=== PATIENT | male | born 1955 | race Caucasian/White ===

== ENCOUNTER 2020-05-27 18:38 | Emergency (ER) | payer OTHER, SELFPAY ==
[2020-05-27 18:43] VITALS: BP 161/104; PULSE 81; RESP 16; TEMP 36.3; O2SAT 98; BMI 26.0
[2020-05-27] MEDS: Ketorolac 30 MG/ML Syringe 15 MG IV (20:02)
[2020-05-27] MEDS: 0.9% Normal Saline 1,000 ML 1000 ML IV (20:02)
[2020-05-27 20:16] LABS: Absolute Lymphocyte Count 0.88 X10^3/uL (0.83-4.51); Basophil# 0.02 X10^3/uL; Basophil% 0.4 % (0-1); Eosinophil# 0.15 X10^3/uL; Eosinophils% 2.7 % (0-5); Hemoglobin 14.2 g/dL (13.0-16.5); Lymphocyte # 0.88 X10^3/ul (4.0); Lymphocyte % 15.8 % (19-41); Mean Corpuscular Hgb 29.1 pg (27.0-32.0); Mean Corpuscular Volume 88.1 fL (80-94); Monocyte# 0.46 X10^3/uL; Monocyte% 8.3 % (0-10); NRBC Flagged by Analyzer 0 % (0-5); Neutrophil # 4.04 X10^3/uL (2.7-7.7); Neutrophil % 72.4 % (47-70); Platelet Count 147 K/mm3 (150-450); RBC Distribution Width CV 12.7 % (11.6-14.6); RBC Distribution Width SD 40.9 fl (35.1-43.9); Red Blood Count 4.88 M/mm3 (4.6-6.2); White Blood Count 5.6 K/mm3 (4.4-11.0)
[2020-05-27 20:27] LABS: Anion Gap 4 (5-15); BUN 21 mg/dL (7-18); BUN/Creat Ratio 14.8 RATIO (10-20); Calcium,Total 8.6 mg/dL (8.5-10.1); Chloride 108 mmol/L (98-107); Creatinine, Serum 1.42 mg/dL (0.70-1.30); EST Glomerular Filtration Rate 53 mL/min (>60); Est Glom Filt Rate - Afr Amer 64 mL/min (>60); Estimated Creatinine Clearance 55.41 ml/min; Glucose 105 mg/dL (74-106); Potassium 4.2 mmol/L (3.5-5.1); Sodium Level 142 mmol/L (136-145)
--- NOTE | 2020-05-27 20:36 | CT_ITS ---
STUDY: CT ABDOMEN AND PELVIS WITHOUT CONTRAST REASON FOR EXAM: Male, 65 years old. LT FLANK PAIN. HX OF KIDNEY STONES RADIATION DOSAGE (If Supplied By Facility): CTDIvol = ( 8.58 ) mGy, DLP = ( 510.41 ) mGycm TECHNIQUE: Transaxial images were obtained from the dome of the diaphragm to the symphysis pubis without oral contrast, and without intravenous contrast. Sagittal and coronal images were reconstructed. Individualized dose optimization techniques were used for this CT. COMPARISON: None. FINDINGS: Within the lower lobes there is minimal predominantly dependent atelectasis. There is a granuloma within the left lower lobe. The visualized portions of the heart are within normal limits. The lack of intravenous contrast limits evaluation of solid visceral organs. Normal liver. The gallbladder is contracted. Normal spleen. There is a 1.8 x 1.4 cm low-attenuation focus within the region of the uncinate process of the pancreas (image 66 series 2). Normal bilateral adrenal glands. There are nonobstructing right renal calculi measuring up to 2.7 mm. There is mild left pelviectasis and left hydroureter associated with a 3.4 mm calculus within the posterior urinary bladder left of midline. There are additional nonobstructing left renal calculi measuring up to 2.7 mm. There is a small hiatal hernia. Normal small intestine. Normal colon. The appendix is visualized and appears normal. There is diffuse atherosclerotic calcification of the abdominal aorta, without a demonstrated aneurysm. Normal inferior vena cava. Normal retroperitoneum. Normal abdominal wall. There are diffuse degenerative changes of the visualized lumbar spine. There is a grade 1 anterior spondylolisthesis of L4 on L5. CT/Abdomen/Pelvis without Cont IMPRESSION: Mild left pelviectasis and left hydroureter, likely secondary to recent passage of 3.4 mm calculus within the posterior urinary bladder left of midline. Bilateral nonobstructing renal calculi measuring up to 2.7 mm. Atherosclerosis. Hiatal hernia. Electronically Signed: Bobbi Shah MD at 20:58 EDT Tel , Service support ,
[2020-05-27 21:01] VITALS: RESP 18
[2020-05-27 21:16] LABS: Bacteria 0 SEEN /hpf (None Seen); Mucous, Urine 0 SEEN /hpf (<or=2+); Squamous Epithelial Cells - UA 0 SEEN /hpf (0-5)
--- NOTE | 2020-05-27 21:16 | ED.VISSUMM ---
- ER Visit Summary Date of Service: 05/27/20 Chief Complaint: Flank pain History of Present Illness: The patient is a 65 M who presents with left flank pain, intermittently over the past week. Worse today. History of kidney stones. Physical Examination: Left CVA tenderness. Exam otherwise normal Test Results: CBC unremarkable. BUN 21, creatinine 1.42. Urinalysis pending. CT shows a stone in the left bladder, 3.4 mm, with signs of recent passage. Hiatal hernia and atherosclerosis noted. Emergency Department Course and Treatment: Patient treated with fluids and a low dose of Toradol. While he was being evaluated, the pain resolved. It appears that the stone is in his bladder and will likely pass spontaneously, if it has not already since the scan. We will check the urinalysis for signs of infection. If it is negative, the patient will be discharged with a urine strainer, prescription for Flomax, Zofran as needed, Percocet as needed. He is from out of the area and will follow-up with his home urologist. If for some reason he stays in the area, he was given a referral to Dr. Mcnulty. Treatment Plan: As above Disposition: Discharge Impression: Ureteral colic This note was generated with [employer] dictation software. It may contain incorrect words, spelling, and punctuation that were not noted in review of the chart prior to signing
--- NOTE | 2020-05-27 21:18 | ED.DEP ---
ED Disposition - Plan for ED Patient: Instructions: ED Renal Stone w Colic Prescriptions: Tamsulosin HCl [Flomax] 0.4 mg PO DAILY #7 cap Prescription Printed Oxycodone HCl/Acetaminophen [Percocet 5/325] 1 tab PO Q6H PRN PRN 3 Days #12 tab PRN Reason: Pain Prescription Printed Ondansetron [Zofran Odt] 4 mg PO Q8H PRN PRN #10 tab PRN Reason: Nausea Prescription Printed Referrals: Neeraj Mcnulty MD [STAFF PHYSICIAN] -
[2020-05-27 21:37] LABS: Color, Urine Yellow (Yellow); Glucose, Dipstick Normal (Normal); Ketone-Dipstick Negative (Negative); Leukocyte Esterase-Dipstick Negative /ul (Negative); Nitrite-Dipstick Negative (Negative); Occult Blood-Urine 150 /ul (Negative); Protein-Dipstick Negative (Negative); Specific Gravity, Urine 1.015 (1.002-1.030); Urine Bilirubin Dipstick Negative (Negative); Urine Clarity Clear (Clear); Urine Urobilinogen 1 mg/dl (Normal)
[2020-05-27 21:59] LABS: Red Blood Cells-Urine 10-25 SEEN /hpf (0-5); White Blood Cells 0-5 SEEN /hpf (0-5)
[2020-05-27 22:26] VITALS: PULSE 82; RESP 16; O2SAT 98
== END 2020-05-27 22:27 | disposition home or self-care (01) ==
LOC: ED 20:14
PROVIDERS: Emergency Provider Emergency Medicine
DX: N21.0 Calculus in bladder (principal); K44.9 Diaphragmatic hernia without obstruction or gangrene; Z87.442 Personal history of urinary calculi
CPT/HCPCS: 74176; 80048; 81001; 85025; 96361; 96374; 99283; J7030; A4216

== ENCOUNTER → 2022-07-01 | Outpatient (CLI) | payer MEDICARE, SELFPAY ==
[2022-07-01 20:59] LABS: Absolute Neutrophil Count 4.7 X10^3/uL (2.0-7.7); Basophil# 0.02 X10^3/uL; Basophil% 0.3 % (0-1); Eosinophil# 0.19 X10^3/uL; Hematocrit 48.8 % (40-54); Hemoglobin 15.7 g/dL (13.0-16.5); Lymphocyte % 15.7 % (19-41); Mean Corp Hgb Conc 32.2 g/dL (32-36); Mean Corpuscular Hgb 28.4 pg (27.0-32.0); Mean Corpuscular Volume 88.2 fL (80-94); Mean Platelet Vol. 10.3 fl (6.2-12.0); Monocyte# 0.42 X10^3/uL; Monocyte% 6.6 % (0-10); NRBC Flagged by Analyzer 0 % (0-5); Neutrophil # 4.74 X10^3/uL (2.7-7.7); Neutrophil % 74.2 % (47-70); Platelet Count 202 K/mm3 (150-450); RBC Distribution Width CV 13.2 % (11.6-14.6); RBC Distribution Width SD 43.1 fl (35.1-43.9); Red Blood Count 5.53 M/mm3 (4.6-6.2); White Blood Count 6.4 K/mm3 (4.4-11.0)
== END | disposition home or self-care (01) ==
PROVIDERS: PCP Family Medicine Geriatric Medicine; Visit Provider Family Medicine Geriatric Medicine
DX: R53.83 Other fatigue (principal); E55.9 Vitamin D deficiency, unspecified; Z12.5 Encounter for screening for malignant neoplasm of prostate
CPT/HCPCS: 36415; 80053; 82306; 84153; 84443; 85025; G0103

== ENCOUNTER → 2022-07-02 | Outpatient (CLI) | payer MEDICARE, SELFPAY ==
[2022-07-02 12:31] LABS: Vitamin D,25 Hydroxy 67.6 ng/mL
[2022-07-02 12:46] LABS: ALB/GLOB Ratio 1.1 RATIO (0.9-2.4); AST(SGOT) 23 U/L (15-37); Alanine Aminotransfer ALT/SGPT 23 U/L (16-61); Albumin, Serum 3.4 g/dL (3.2-5.0); Alkaline Phosphatase 98 U/L (45-117); Anion Gap 5 (5-15); BUN 23 mg/dL (7-18); BUN/Creat Ratio 21.5 RATIO (10-20); Calcium,Total 9.1 mg/dL (8.5-10.1); Chloride 108 mmol/L (98-107); Creatinine, Serum 1.07 mg/dL (0.70-1.30); EST Glomerular Filtration Rate 73 mL/min (>60); Est Glom Filt Rate - Afr Amer 88 mL/min (>60); Globulin 3.1 g/dL (2.2-4.2); Glucose 91 mg/dL (74-106); PSA,Total - Annual Screen 1.63 ng/mL (0.00-4.00); Potassium 4.6 mmol/L (3.5-5.1); Protein, Total 6.5 g/dL (6.4-8.2); Sodium Level 142 mmol/L (136-145); Thyroid Stim Hormone (TSH) 0.62 uIU/mL (0.358-3.74)
== END | disposition home or self-care (01) ==
LOC: POLAB3 09:50
PROVIDERS: PCP Family Medicine Geriatric Medicine; Visit Provider Family Medicine Geriatric Medicine
DX: R53.83 Other fatigue (principal); E55.9 Vitamin D deficiency, unspecified; Z12.5 Encounter for screening for malignant neoplasm of prostate
CPT/HCPCS: 80053; 82306; 84153; 84443; G0103

== ENCOUNTER → 2023-02-21 | Outpatient (CLI) | payer MEDICARE, OTHER, SELFPAY ==
--- NOTE | 2023-02-21 08:55 | RAD_ITS ---
STUDY: X-RAY - ESOPHAGUS (BARIUM SWALLOW) WITH FLUOROSCOPY REASON FOR EXAM: Male, 68 years old. GERD *12MM* TECHNIQUE: 18 view(s) of the esophagus were obtained following swallowing of barium. FLUOROSCOPY TIME (if supplied): (52 seconds) minutes/seconds. 38.96 mGy COMPARISON: None. FINDINGS: There is no demonstrated esophageal foreign body. Is a small hiatal hernia with gastroesophageal reflux. Small weblike stenosis at the gastroesophageal junction. The patient ingested a 12 mm tablet of barium. The tablet is trapped at the gastroesophageal junction. There is atherosclerotic tortuosity of the aortic arch and descending thoracic aorta. Normal visualized pulmonary parenchyma. There are diffuse degenerative changes of the visualized thoracic spine. RAD/Esophagus Dual Contrast IMPRESSION: Small sliding hiatal hernia with gastroesophageal reflux. Small weblike stenosis at the gastroesophageal junction with trapping of the 12 mm tablet of barium. Electronically Signed: Guido Chowdary MD at 10:44 EDT ,
== END | disposition home or self-care (01) ==
LOC: RAD 08:48
PROVIDERS: PCP Family Medicine Geriatric Medicine; Referring Provider Family Medicine Geriatric Medicine; Visit Provider Family Medicine Geriatric Medicine
DX: K21.9 Gastro-esophageal reflux disease without esophagitis (principal)
CPT/HCPCS: 74221

== ENCOUNTER → 2023-03-11 | Outpatient (CLI) | payer MEDICARE, OTHER, SELFPAY ==
--- NOTE | 2023-03-11 08:23 | CT_ITS ---
STUDY: CT ABDOMEN AND PELVIS WITH CONTRAST REASON FOR EXAM: Male, 68 years old. PANCREATIC MASS. History of rheumatic fever as a child. RADIATION DOSAGE (If Supplied By Facility): CTDIvol = ( 11.27 ) mGy, DLP = ( 1051.2 ) mGycm TECHNIQUE: Transaxial images were obtained from the dome of the diaphragm to the symphysis pubis without oral contrast. IV 100mL Isovue-370 was administered. Sagittal and coronal images were reconstructed. Individualized dose optimization techniques were used for this CT. COMPARISON: Comparison is made with prior study dated May 27, 2020. FINDINGS: Minimal degree of increased markings at the lung bases suggesting mild basilar atelectasis. Coronary artery calcification. There is decreased attenuation of the liver consistent with steatosis. Normal gallbladder and extrahepatic biliary system. Normal spleen. There is a 1.9 cm x 1.6 cm cyst in the region of the uncinate process of the pancreas. This is essentially unchanged. Normal bilateral adrenal glands. Punctate nonobstructive calculus in the midpole calyx of the right kidney. Normal left kidney. There is a small hiatal hernia. Normal small intestine. There are scattered colonic diverticula consistent with diverticulosis. The appendix is visualized and appears normal. Normal abdominal aorta. Normal inferior vena cava. Normal retroperitoneum. Normal urinary bladder. There are prostatic calcifications. Heterogeneous enlargement of the prostate. A spinal stimulator device is seen with the battery pack overlying the left buttock. There are diffuse degenerative changes of the visualized lumbar spine. Grade 1 anterior listhesis of L4 on L5. CT/Abdomen/Pelvis WITH Contrast IMPRESSION: Stable 1.9 cm by 1.6 m cyst in the uncinate process of the pancreas. Electronically Signed: Guido Chowdary MD at 15:05 EDT ,
[2023-03-11 08:53] LABS: CREATININE FINGERSTICK < 0.9 mg/dL (0.70-1.30); EGFR FINGERSTICK > 60.0000 mL/min (>60)
== END | disposition home or self-care (01) ==
LOC: CT 08:17
PROVIDERS: PCP Family Medicine Geriatric Medicine; Referring Provider Family Medicine Geriatric Medicine; Visit Provider Family Medicine Geriatric Medicine
DX: K86.89 Other specified diseases of pancreas (principal)
CPT/HCPCS: 74177; Q9967

== ENCOUNTER → 2023-04-21 | Outpatient (CLI) | payer MEDICARE, OTHER, SELFPAY ==
[2023-04-21 20:29] LABS: M R Staph aureus DNA By PCR Negative (Negative); Probe Check PASS; Specimen Processing Control PASS; Staph aureus DNA By PCR NEGATIVE (Negative)
== END | disposition home or self-care (01) ==
LOC: POLAB3 17:11
PROVIDERS: PCP Family Medicine Geriatric Medicine; Visit Provider Family Medicine Geriatric Medicine
DX: L03.115 Cellulitis of right lower limb (principal)
CPT/HCPCS: 36415; 87070; 87186; 87205; 87640

== ENCOUNTER 2023-05-06 08:00 | Outpatient (RCR) | payer MEDICARE, OTHER, SELFPAY ==
[2023-04-29 08:11] VITALS: BP 139/93; PULSE 86; RESP 16; TEMP 36.4; BMI 27.1
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
[2023-05-06 08:11] VITALS: BP 141/91; PULSE 84; RESP 18; TEMP 36.6; BMI 27.1
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
== END 2023-05-12 23:59 | disposition home or self-care (01) ==
LOC: WC 08:00
PROVIDERS: PCP Family Medicine Geriatric Medicine; Referring Provider Family Medicine Geriatric Medicine; Visit Provider Surgery
DX: S81.811A Laceration without foreign body, right lower leg, initial encounter (principal); M35.3 Polymyalgia rheumatica; F02.80 Dementia in other diseases classified elsewhere, unspecified severity, without behavioral disturbance, psychotic disturbance, mood disturbance, and anxiety; G30.9 Alzheimer's disease, unspecified; K44.9 Diaphragmatic hernia without obstruction or gangrene; R13.10 Dysphagia, unspecified; G62.9 Polyneuropathy, unspecified; K22.2 Esophageal obstruction; E78.5 Hyperlipidemia, unspecified; L90.5 Scar conditions and fibrosis of skin; H91.90 Unspecified hearing loss, unspecified ear; K86.2 Cyst of pancreas; M48.061 Spinal stenosis, lumbar region without neurogenic claudication; G47.30 Sleep apnea, unspecified; Z96.82 Presence of neurostimulator; K21.9 Gastro-esophageal reflux disease without esophagitis; I10 Essential (primary) hypertension; R05.3 Chronic cough; Z96.653 Presence of artificial knee joint, bilateral; W22.09XA Striking against other stationary object, initial encounter
CPT/HCPCS: 11042; 29581; 99213; G0463

== ENCOUNTER 2023-05-27 09:45 | Outpatient (RCR) | payer MEDICARE, OTHER, SELFPAY ==
[2023-05-13 00:42] VITALS: BP 141/91; PULSE 84; RESP 18; TEMP 36.6; BMI 27.1
--- NOTE | 2023-05-13 14:31 | HP.PCM_ITS ---
History of Present Illness Date of Service: 05/13/23 Chief Complaint: Traumatic wound, right pretibial surface History of Wound: This is a 68-year-old male who sustained a traumatic wound of the right pretibial surface on April 12, 2023. This portion of his leg impacted a hard surface of his jeep, resulting in a traumatic wound. The patient subsequently was evaluated at the urgent care center at the [facility] [place] on April 19, 2023, and was then referred to his primary care physician, Dr. Aburto. Si nce that time, the patient has been prescribed Keflex 500 mg p.o. 3 times daily for 7 days, Levaquin 500 mg daily for 7 days, and is now finishing a prescription for clindamycin 300 mg p.o. 3 times daily for 7 days. The patient has been leaving his open wound open to air most recently, but had previously been using Bactroban topically. Patient has chronically been on prednisone daily long-term. With respect to his traumatic wound, initially there was a skin flap, and the patient carefully repositioned the flap of skin, which subsequently failed to remain viable. The patient is active. He ambulates liberally. He is able to ambulate several blocks without difficulty. He sleeps on a flat surface at night. He denies a history of thrombophlebitis. [facility] Medical History Alzheimer's disease Chronic cough Dysphagia Esophageal stenosis GERD (gastroesophageal reflux disease) Hearing loss Hiatal hernia Hyperlipidemia Hypertension Mild cognitive impairment Pancreatic cyst Peripheral nerve neurostimulator device in situ Polymyalgia rheumatica Sleep apnea treated with continuous positive airway pressure (CPAP) Spinal stenosis at L4-L5 level Traumatic open wound of right lower leg Home Medications amlodipine 5 mg tablet 5 mg PO DAILY 05/27/20 [History Last Taken 05/27/20] dextroamphetamine-amphetamine ER 30 mg 24hr capsule,extend release 30 mg PO DAILY 05/27/20 [History Last Taken 05/27/20] prednisone 1 mg tablet 4 mg PO DAILY 05/27/20 [History Last Taken 04/29/23] Allergy/AdvReac Type Severity Reaction Status Date / Time No Known Allergies Allergy Verified 04/29/23 08:56 Surgical History History of total bilateral knee replacement Social History Smoking Status: Never smoker Vital Signs Vital Signs Vital Signs: 05/13/23 00:42 Temperature 97.9 F Pulse Rate 84 Respiratory Rate 18 Blood Pressure 141/91 H Blood Pressure Mean 107 Blood Pressure Location Left Arm Weight Weight: 200 lb Body Mass Index (BMI) 27.1 Physical Exam Const alert, oriented x3, no apparent distress, average body habitus and well nourished Constitutional Narrative: BMI is 27.1. The patient demonstrates a hearing deficit. General Appearance: cooperative, comfortable, well kempt and well developed Orientation / Consciousness: awake, oriented to person, oriented to place and oriented to time HEENT normocephalic and head/scalp atraumatic HEENT Narrative: Hearing deficit is noted. Head and Scalp: normal to inspection, normocephalic and atraumatic External Ear: external ears normal Eyes PERRL and EOMs intact bilaterally General Eye: normal appearance of both eyes Resp normal respiratory effort, normal air movement, no retractions and no use of accessory muscles Effort and Inspection: able to speak in complete sentences and symmetric chest movement Extremity no calf tenderness General Extremity: Negative for clubbing or cyanosis Skin Wound Narrative: Scattered varicosities are noted in the patient's lower extremities, some of which are large. A traumatic wound is noted on the right pretibial surface. There is no significant periwound erythema. There is a moderate amount of n onviable tissue and bioburden. Dimensions are documented elsewhere. There is no sign of infection or cellulitis. 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 Taj Boothe. Neuro oriented x3, CN's II-XII intact bilaterally, moves all extremities, no focal motor deficits and no sensory deficits noted Sensorium / Orientation: awake, alert, oriented to person, oriented to place and oriented to time Psych Appearance: grossly normal and appropriate Attitude: calm Activity / Motor Behavior: appropriate eye contact Speech: normal speech Mood & Affect: euthymic mood Thought Process: normal thought process Thought Content: normal thought content Attention / Concentration: attention grossly intact Debridement Note Debridement Note Wound debrided: Right pretibial surface Laterality: Right Type of Debridement: Excisional debridement Anesthesia Used: 5% Lidocaine Gel and Cetacaine Depth: Down to and including healthy tissue and in the subcutaneous layer Percentage of wound debrided: 100 Instrument Used: 5mm curette Tissue Removed: Eschar, bioburden, nonviable tissue Severity: Fat Layer Exposed Amount of bleeding with debridement: Mild Bleeding Controlled with: Compression and gauze Patient tolerated procedure: Patient tolerated procedure well Post-Debridement Measurements and Additional Note: Post-Debridement Measurements/Treatment WC - Nurse 2 - General Ulcer CM Notes Start: 05/13/23 09:15 Freq: Status: Active Protocol: Activity Type Activity Date Activity User E-sign Co-sign Detail Recorded Client Recorded Date Recorded By Document 05/13/23 12:30 PL [id number] 05/13/23 12:32 PL 05/13/23 12:30 Wound Center Nurse 2 #1 right diana -Time 09:34 -Correct Patient Yes -Correct Side, Site, Position Yes -Correct Procedure Yes -Procedure Performed Yes -Type of Procedure Debridement -Clinical Debridement Subcutaneous -Tissue Removed Subcutaneous -Post Debridement (cm) - Length 2.0 -Post Debridement (cm) - Width 1.6 -Post Debridement (cm) - Depth 0.1 -Total Square (Post) (cm) 3.20 -Area of Debridement (cm) - Length 2.0 -Area of Debridement (cm) - Width 1.6 -Total Square (Area) (cm) 3.20 -Tunneling No -Undermining/Tunneling No -Circular Undermining No -Wound/Ulcer Outcome Not Healed -Ulcer Cleansing Rinsed/ Irrigated with Saline -Foul Odor after Cleansing No -Bioengineered Tissue No -Bleeding Controlled with Pressure -Treatment Response Procedure Tolerated Well -Debridement - Subq, 1st 20sq cm Yes Pain Scale: 0-10 Numeric Is Patient Pain Free? Yes - Nurse 3 - General Ulcer D/C NN Start: 05/13/23 09:15 Freq: Status: Active Protocol: Activity Type Activity Date Activity User E-sign Co-sign Detail Recorded Client Recorded Date Recorded By Document 05/13/23 09:47 DL [id number] 05/13/23 09:48 DL 05/13/23 09:47 Wound Care Center Nurse 3 #1 right diana -Ulcer Cleansing Rinsed/ Irrigated with Saline -Foul Odor after Cleansing No -Primary Dressing Applied Mepilex Border, Promogran -Mepilex Border 1 -Promogran 1 Treatment Response Procedure Tolerated Well Pain Scale: 0-10 Numeric Is Patient Pain Free? Yes WC - Visit Discharge Discharge Condition Stable Ambulatory Status Ambulatory Transportation Private Auto Assessment/Plan Assessment/Plan (1) Traumatic open wound of right lower leg: CODE(S): S81.801A - Unspecified open wound, right lower leg, initial encounter QUALIFIERS: Encounter type: subsequent encounter Qualified Code(s): S81.801D - Unspecified open wound, right lower leg, subsequent encounter (2) GERD (gastroesophageal reflux disease): CODE(S): K21.9 - Gastro-esophageal reflux disease without esophagitis (3) Pancreatic cyst: CODE(S): K86.2 - Cyst of pancreas (4) Esophageal stenosis: CODE(S): K22.2 - Esophageal obstruction (5) Hiatal hernia: CODE(S): K44.9 - Diaphragmatic hernia without obstruction or gangrene (6) Dysphagia: CODE(S): R13.10 - Dysphagia, unspecified (7) Alzheimer's disease: CODE(S): G30.9 - Alzheimer's disease, unspecified; F02.80 - Dementia in other diseases classified elsewhere, unspecified severity, without behavioral disturbance, psychotic disturbance, mood disturbance, and anxiety (8) Mild cognitive impairment: CODE(S): G31.84 - Mild cognitive impairment of uncertain or unknown etiology (9) Sleep apnea treated with continuous positive airway pressure (CPAP): CODE(S): G47.30 - Sleep apnea, unspecified (10) Hearing loss: CODE(S): H91.90 - Unspecified hearing loss, unspecified ear (11) Spinal stenosis at L4-L5 level: CODE(S): M48.061 - Spinal stenosis, lumbar region without neurogenic claudication (12) Polymyalgia rheumatica: CODE(S): M35.3 - Polymyalgia rheumatica (13) Hyperlipidemia: CODE(S): E78.5 - Hyperlipidemia, unspecified (14) Hypertension: CODE(S): I10 - Essential (primary) hypertension (15) Chronic cough: CODE(S): R05.3 - Chronic cough (16) History of total bilateral knee replacement: CODE(S): Z96.653 - Presence of artificial knee joint, bilateral (17) Peripheral nerve neurostimulator device in situ: CODE(S): Z96.82 - Presence of neurostimulator PLAN: Plan This is a 68-year-old male who presented with a traumatic wound to the right pretibial surface. The injury occurred on April 12, 2023. Patient has since been evaluated in the urgent care facility at the [facility] [place], as well as by his primary care physician. 3 courses of oral antibiotics have been administered, including Keflex, Levaquin, and clindamycin. The patient has used Bactroban topically, but more recently has left the wound open to air. Initially, a skin flap was created at the time of the injury, which was repositioned by the bubba maki. However, the skin flap did not remain viable, and the patient presented with an open wound on the right pretibial surface. The patient has been encouraged to optimize nutritional intake. He is active, and ambulates liberally. It is unlikely that there is significant underlying arterial occlusive disease, based upon the patient's history. We are to continue the use of Promogran topically, which will be applied on a daily basis. The patient has been instructed in the appropriate means of application. Given the patient's varicose veins, he has been given Tubigrip's of 20 to 30 mmHg compression, which are to be worn daily. The patient is to return in 1 week for reassessment. We are to consider the use of a skin substitute, and we will request preauthorization for the use of EpiFix. Total time: 24 minutes
[2023-05-27 09:49] VITALS: BP 143/89; PULSE 88; RESP 16; TEMP 36.2; BMI 27.1
--- NOTE | 2023-05-27 13:25 | PCM.WC.HP ---
History of Present Illness Date of Service: 05/27/23 Chief Complaint: Traumatic wound, right pretibial surface History of Wound: This is a 68-year-old male who sustained a traumatic wound of the right pretibial surface on April 12, 2023. This portion of his leg impacted a hard surface of his jeep, resulting in a traumatic wound. The patient subsequently was evaluated at the urgent care center at the [facility] on April 19, 2023, and was then referred to his primary care physician, Dr. Aburto. Since that time, the patient has been prescribed Keflex 500 mg p.o. 3 times daily for 7 days, Levaquin 500 mg daily for 7 days, and is now finishing a prescription for clindamycin 300 mg p.o. 3 times daily for 7 days. The patient has been leaving his open wound open to air most recently, but had previously been using Bactroban topically. Patient has chronically been on prednisone daily long-term. With respect to his traumatic wound, initially there was a skin flap, and the patient carefully repositioned the flap of skin, which subsequently failed to remain viable. The patient is active. He ambulates liberally. He is able to ambulate several blocks without difficulty. He sleeps on a flat surface at night. He denies a history of thrombophlebitis. [facility] Medical History Alzheimer's disease Chronic cough Dysphagia Esophageal stenosis GERD (gastroesophageal reflux disease) Hearing loss Hiatal hernia Hyperlipidemia Hypertension Mild cognitive impairment Non-pressure chronic ulcer of right calf with fat layer exposed Pancreatic cyst Peripheral nerve neurostimulator device in situ Polymyalgia rheumatica Sleep apnea treated with continuous positive airway pressure (CPAP) Spinal stenosis at L4-L5 level Traumatic open wound of right lower leg Home Medications amlodipine 5 mg tablet 5 mg PO DAILY 05/27/20 [History Last Taken 05/27/20] dextroamphetamine-amphetamine ER 30 mg 24hr capsule,extend release 30 mg PO DAILY 05/27/20 [History Last Taken 05/27/20] prednisone 1 mg tablet 4 mg PO DAILY 05/27/20 [History Last Taken 04/29/23] Allergy/AdvReac Type Severity Reaction Status Date / Time No Known Allergies Allergy Verified 04/29/23 08:56 Surgical History History of total bilateral knee replacement Social History Smoking Status: Never smoker Vital Signs Vital Signs Vital Signs: 05/27/23 09:49 Temperature 97.2 F L Temperature Source Temporal Pulse Rate 88 Respiratory Rate 16 Blood Pressure 143/89 H Blood Pressure Mean 107 Blood Pressure Source Monitor Blood Pressure Position Sitting Blood Pressure Location Left Arm Oxygen Delivery Method Room Air Weight Weight: 200 lb Body Mass Index (BMI) 27.1 Physical Exam Const alert, oriented x3, no apparent distress, average body habitus and well nourished Constitutional Narrative: BMI is 27.1. The patient demonstrates a hearing deficit. General Appearance: cooperative, comfortable, well kempt and well developed Orientation / Consciousness: awake, oriented to person, oriented to place and oriented to time HEENT normocephalic and head/scalp atraumatic HEENT Narrative: Hearing deficit is noted. Head and Scalp: normal to inspection, normocephalic and atraumatic External Ear: external ears normal Eyes PERRL and EOMs intact bilaterally General Eye: normal appearance of both eyes Resp normal respiratory effort, normal air movement, no retractions and no use of accessory muscles Effort and Inspection: able to speak in complete sentences and symmetric chest movement Extremity no calf tenderness General Extremity: Negative for clubbing or cyanosis Skin Wound Narrative: Scattered varicosities are noted in the patient's lower extremities, some of which are large. A traumatic wound is noted on the right pretibial surface. There is a small amount of bioburden. The wound has diminished in size. It is now nearly healed. Dimensions are documented elsewhere. There is no significant periwound erythema. There is no sign of infection or cellulitis. Neuro oriented x3, CN's II-XII intact bilaterally, moves all extremities, no focal motor deficits and no sensory deficits noted Sensorium / Orientation: awake, alert, oriented to person, oriented to place and oriented to time Psych Appearance: grossly normal and appropriate Attitude: calm Activity / Motor Behavior: appropriate eye contact Speech: normal speech Mood & Affect: euthymic mood Thought Process: normal thought process Thought Content: normal thought content Attention / Concentration: attention grossly intact Debridement Note Debridement Note Wound debrided: Right pretibial surface Laterality: Right Type of Debridement: Excisional debridement Anesthesia Used: 5% Lidocaine Gel and Cetacaine Depth: Down to and including healthy tissue and in the subcutaneous layer Percentage of wound debrided: 100 Instrument Used: 5mm curette Tissue Removed: Eschar, bioburden, nonviable tissue Severity: Fat Layer Exposed Amount of bleeding with debridement: Mild Bleeding Controlled with: Compression and gauze Patient tolerated procedure: Patient tolerated procedure well Post-Debridement Measurements and Additional Note: Post-Debridement Measurements/Treatment TANNER - Nurse 1 - General Ulcer Assessment Start: 05/13/23 09:15 Freq: Status: Active Protocol: BEBO Activity Type Activity Date Activity User E-sign Co-sign Detail Recorded Client Recorded Date Recorded By Document 05/27/23 09:49 MW [id number] 05/27/23 10:00 MW 05/27/23 09:49 TANNER - Today's Visit Information Type of service Follow-up Visit (Physician/[employer] OPERATOR ) Arrival Mode Ambulatory Transfer Assistance None Accompanied by self Patient Identification Verified (Name & Yes ) Patient Requires Transmission-Based No Precautions Safety Precautions NA Height and Weight Body Mass Index (BMI) 27.1 BMI Classification Overweight Vital Signs Temperature (97.8 F-99.1 F) 97.2 F L Temperature Source Temporal Pulse Rate (60-100) 88 Pulse Location Monitor Respiratory Rate (12-18) 16 Respiratory rate source Observation Oxygen Delivery Method Room Air Blood Pressure (90/60-120/80) 143/89 H Blood Pressure Mean 107 Source Monitor Position Sitting Blood Pressure Location Left Arm History Since Last Visit- (Skip if this is Patient's initial visit) Have you changed medications since your No last visit? Any new allergies or adverse reactions No Had a fall/change in ADL's that may No increase risk of falls Signs or symptoms of abuse and/or No neglect since last visit Have you been in the hospital since your No last visit? Has dressing in place as prescribed No Has compression in place as prescribed No Has offloadiing in place as prescribed N/A Experienced any changes in pain level or No management Left Footwear Regular Shoe Right Footwear Regular Shoe Pain Scale: 0-10 Numeric Is Patient Pain Free? Yes TANNER Lau Nurse 1 - General Ulcer Measurement Start: 05/13/23 09:15 Freq: Status: Active Protocol: Activity Type Activity Date Activity User E-sign Co-sign Detail Recorded Client Recorded Date Recorded By Document 05/27/23 09:49 MW [id number] 05/27/23 10:00 MW 05/27/23 09:49 Wound Center Nurse 1 #1 right diana -Combined with other wound No -Current Size (cm) - Length 0.1 -Current Size (cm) - Width 0.1 -Current Size (cm) - Depth 0.1 -Total Square Cm 0.01 -Photo Taken No -Epithelialization None Present -Tunneling No -Undermining/Tunneling No -Circular Undermining No -Exudate Amt None Present -Wound Margin Flat & Intact -Granulation Amt None Present (0 %) -Granulation Quality N/A -Slough/Fibrin Yes -Necrosis Amt Large (67-100%) -Necrotic Tissue Type Adherent Slough -Structure Exposed N/A -Texture (Radha-wound Skin Appearance) Assessed, Localized Edema ,Scarring -Moisture (Radha-wound Skin Appearance) Assessed,Dry/ Scaly -Color (Radha-wound Skin Appearance) Assessed -Temperature (Radha-wound Skin No Abnormality Appearance) (Pt Warm) -Ulcer Cleansing Rinsed/ Irrigated with Saline -Foul Odor after Cleansing No -Anesthetic Used 5% Lidocaine Gel Lower Limb Edema Present No WC - Nurse 2 - General Ulcer CM Notes Start: 05/13/23 09:15 Freq: Status: Active Protocol: Activity Type Activity Date Activity User E-sign Co-sign Detail Recorded Client Recorded Date Recorded By Document 05/13/23 12:30 PL [id number] 05/13/23 12:32 PL Document 05/27/23 12:22 [id number] 05/27/23 12:23 PL 05/13/23 05/27/23 12:30 12:22 Wound Center Nurse 2 #1 right diana -Time 09:34 10:09 -Correct Patient Yes Yes -Correct Side, Site, Position Yes Yes -Correct Procedure Yes Yes -Procedure Performed Yes Yes -Type of Procedure Debridement Debridement -Clinical Debridement Subcutaneous Subcutaneous -Tissue Removed Subcutaneous Subcutaneous -Post Debridement (cm) - Length 2.0 0.1 -Post Debridement (cm) - Width 1.6 0.1 -Post Debridement (cm) - Depth 0.1 0.1 -Total Square (Post) (cm) 3.20 0.01 -Area of Debridement (cm) - Length 2.0 0.1 -Area of Debridement (cm) - Width 1.6 0.1 -Total Square (Area) (cm) 3.20 0.01 -Tunneling No No -Undermining/Tunneling No No -Circular Undermining No No -Wound/Ulcer Outcome Not Healed Not Healed -Ulcer Cleansing Rinsed/ Rinsed/ Irrigated with Irrigated with Saline Saline -Foul Odor after Cleansing No No -Bioengineered Tissue No No -Bleeding Controlled with Pressure Pressure -Treatment Response Procedure Procedure Tolerated Well Tolerated Well -Debridement - Subq, 1st 20sq cm Yes Yes Pain Scale: 0-10 Numeric Is Patient Pain Free? Yes Yes - Nurse 3 - General Ulcer D/C NN Start: 05/13/23 09:15 Freq: Status: Active Protocol: Activity Type Activity Date Activity User E-sign Co-sign Detail Recorded Client Recorded Date Recorded By Document 05/13/23 09:47 DL [id number] 05/13/23 09:48 DL 05/13/23 09:47 Wound Care Center Nurse 3 #1 right diana -Ulcer Cleansing Rinsed/ Irrigated with Saline -Foul Odor after Cleansing No -Primary Dressing Applied Mepilex Border, Promogran -Mepilex Border 1 -Promogran 1 Treatment Response Procedure Tolerated Well Pain Scale: 0-10 Numeric Is Patient Pain Free? Yes - Visit Discharge Discharge Condition Stable Ambulatory Status Ambulatory Transportation Private Auto Assessment/Plan Assessment/Plan (1) Traumatic open wound of right lower leg: CODE(S): S81.801A - Unspecified open wound, right lower leg, initial encounter QUALIFIERS: Encounter type: subsequent encounter Qualified Code(s): S81.801D - Unspecified open wound, right lower leg, subsequent encounter (2) Non-pressure chronic ulcer of right calf with fat layer exposed: CODE(S): L97.212 - Non-pressure chronic ulcer of right calf with fat layer exposed (3) GERD (gastroesophageal reflux disease): CODE(S): K21.9 - Gastro-esophageal reflux disease without esophagitis (4) Pancreatic cyst: CODE(S): K86.2 - Cyst of pancreas (5) Esophageal stenosis: CODE(S): K22.2 - Esophageal obstruction (6) Hiatal hernia: CODE(S): K44.9 - Diaphragmatic hernia without obstruction or gangrene (7) Dysphagia: CODE(S): R13.10 - Dysphagia, unspecified (8) Alzheimer's disease: CODE(S): G30.9 - Alzheimer's disease, unspecified; F02.80 - Dementia in other diseases classified elsewhere, unspecified severity, without behavioral disturbance, psychotic disturbance, mood disturbance, and anxiety (9) Mild cognitive impairment: CODE(S): G31.84 - Mild cognitive impairment of uncertain or unknown etiology (10) Sleep apnea treated with continuous positive airway pressure (CPAP): CODE(S): G47.30 - Sleep apnea, unspecified (11) Hearing loss: CODE(S): H91.90 - Unspecified hearing loss, unspecified ear (12) Spinal stenosis at L4-L5 level: CODE(S): M48.061 - Spinal stenosis, lumbar region without neurogenic claudication (13) Polymyalgia rheumatica: CODE(S): M35.3 - Polymyalgia rheumatica (14) Hyperlipidemia: CODE(S): E78.5 - Hyperlipidemia, unspecified (15) Hypertension: CODE(S): I10 - Essential (primary) hypertension (16) Chronic cough: CODE(S): R05.3 - Chronic cough (17) History of total bilateral knee replacement: CODE(S): Z96.653 - Presence of artificial knee joint, bilateral (18) Peripheral nerve neurostimulator device in situ: CODE(S): Z96.82 - Presence of neurostimulator PLAN: Plan This is a 68-year-old male who presented with a traumatic wound to the right pretibial surface. The injury occurred on April 12, 2023. Patient has since been evaluated in the urgent care facility at the [facility], as well as by his primary care physician. 3 courses of oral antibiotics have been administered, including Keflex, Levaquin, and clindamycin. The patient has used Bactroban topically, but more recently has left the wound open to air. Initially, a skin flap was created at the time of the injury, which was repositioned by the patient. However, the skin flap did not remain viable, and the patient presented with an open wound on the right pretibial surface. The patient has been encouraged to optimize nutritional intake. He is active, and ambulates liberally. It is unlikely that there is significant underlying arterial occlusive disease, based upon the patient's history. We are to implement the use of collagen hydrogel which will be applied topically on a daily basis. The patient has been instructed in the appropriate means of application. Given the patient's varicose veins, he has been given Tubigrip's of 20 to 30 mmHg compression, which are to be worn daily. The patient is to return in 2 weeks for reassessment. The patient's wound is now nearly totally healed, and may well be completely healed by the time of his next visit. Total time: 22 minutes
== END 2023-06-12 23:59 | disposition home or self-care (01) ==
LOC: WC 09:45
PROVIDERS: PCP Family Medicine Geriatric Medicine; Referring Provider Family Medicine Geriatric Medicine; Visit Provider Surgery
DX: L97.212 Non-pressure chronic ulcer of right calf with fat layer exposed (principal); M35.3 Polymyalgia rheumatica; F02.80 Dementia in other diseases classified elsewhere, unspecified severity, without behavioral disturbance, psychotic disturbance, mood disturbance, and anxiety; G30.9 Alzheimer's disease, unspecified; K44.9 Diaphragmatic hernia without obstruction or gangrene; I10 Essential (primary) hypertension; R13.10 Dysphagia, unspecified; Z96.82 Presence of neurostimulator; K22.2 Esophageal obstruction; K86.2 Cyst of pancreas; H91.90 Unspecified hearing loss, unspecified ear; M48.061 Spinal stenosis, lumbar region without neurogenic claudication; K21.9 Gastro-esophageal reflux disease without esophagitis; G47.30 Sleep apnea, unspecified; E78.5 Hyperlipidemia, unspecified; R05.3 Chronic cough; Z96.653 Presence of artificial knee joint, bilateral
CPT/HCPCS: 11042

== ENCOUNTER 2023-07-21 10:56 | Outpatient (CLI) | payer MEDICARE, OTHER, SELFPAY ==
[2023-07-21 11:25] LABS: Hematocrit 47.5 % (40-54); Hemoglobin 14.8 g/dL (13.0-16.5); Mean Corp Hgb Conc 31.2 g/dL (32-36); Mean Platelet Vol. 10.3 fl (6.2-12.0); Platelet Count 168 K/mm3 (150-450); RBC Distribution Width CV 13.6 % (11.6-14.6); RBC Distribution Width SD 44.7 fl (35.1-43.9); Red Blood Count 5.28 M/mm3 (4.6-6.2)
[2023-07-21 11:39] LABS: International Normalized Ratio 0.9; Prothrombin Time (Protime)PT. 12.3 SECONDS (11.7-14.9)
[2023-07-21 12:07] LABS: ALB/GLOB Ratio 1.1 RATIO (0.9-2.4); AST(SGOT) 17 U/L (15-37); Alanine Aminotransfer ALT/SGPT 24 U/L (16-61); Albumin, Serum 3.4 g/dL (3.2-5.0); Alkaline Phosphatase 93 U/L (45-117); Anion Gap 3 (5-15); BUN 20 mg/dL (7-18); BUN/Creat Ratio 19.4 RATIO (10-20); Calcium,Total 8.9 mg/dL (8.5-10.1); Chloride 105 mmol/L (98-107); Creatinine, Serum 1.03 mg/dL (0.70-1.30); EST Glomerular Filtration Rate 76 mL/min (>60); Est Glom Filt Rate - Afr Amer 92 mL/min (>60); Glucose 85 mg/dL (74-106); Protein, Total 6.4 g/dL (6.4-8.2); Sodium Level 139 mmol/L (136-145)
== END 2023-07-21 23:59 | disposition home or self-care (01) ==
LOC: LAB 11:01
PROVIDERS: PCP Family Medicine Geriatric Medicine
DX: Z01.818 Encounter for other preprocedural examination (principal)
CPT/HCPCS: 36415; 80053; 85027; 85610; 85730

== ENCOUNTER → 2023-08-20 | Outpatient (CLI) | payer MEDICARE, OTHER, SELFPAY ==
[2023-08-20 13:49] LABS: Absolute Lymphocyte Count 1.04 X10^3/uL (0.83-4.51); Absolute Neutrophil Count 6.8 X10^3/uL (2.0-7.7); Basophil# 0.03 X10^3/uL; Basophil% 0.4 % (0-1); Eosinophil# 0.05 X10^3/uL; Eosinophils% 0.6 % (0-5); Hematocrit 51.5 % (40-54); Hemoglobin 16.5 g/dL (13.0-16.5); Lymphocyte # 1.04 X10^3/ul (0.83-4.51); Lymphocyte % 12.5 % (19-41); Mean Corpuscular Hgb 28.3 pg (27.0-32.0); Mean Corpuscular Volume 88.2 fL (80-94); Mean Platelet Vol. 9.4 fl (6.2-12.0); Monocyte% 4.8 % (0-10); NRBC Flagged by Analyzer 0 % (0-5); Neutrophil # 6.78 X10^3/uL (2.7-7.7); Neutrophil % 81.1 % (47-70); Platelet Count 172 K/mm3 (150-450); RBC Distribution Width CV 13.7 % (11.6-14.6); Red Blood Count 5.84 M/mm3 (4.6-6.2); White Blood Count 8.4 K/mm3 (4.4-11.0)
[2023-08-20 14:28] LABS: Vitamin D,25 Hydroxy 54.7 ng/mL
[2023-08-20 14:37] LABS: AST(SGOT) 15 U/L (15-37); Alanine Aminotransfer ALT/SGPT 22 U/L (16-61); Albumin, Serum 3.1 g/dL (3.2-5.0); Alkaline Phosphatase 92 U/L (45-117); Anion Gap 0 (5-15); BUN 22 mg/dL (7-18); Calcium,Total 8.7 mg/dL (8.5-10.1); Chloride 106 mmol/L (98-107); Creatinine, Serum 1.22 mg/dL (0.70-1.30); EST Glomerular Filtration Rate 62 mL/min (>60); Est Glom Filt Rate - Afr Amer 75 mL/min (>60); Globulin 3.2 g/dL (2.2-4.2); Glucose 106 mg/dL (74-106); PSA,Total - Annual Screen 2.62 ng/mL (0.00-4.00); Potassium 4.6 mmol/L (3.5-5.1); Protein, Total 6.3 g/dL (6.4-8.2); Sodium Level 140 mmol/L (136-145); Thyroid Stim Hormone (TSH) 0.52 uIU/mL (0.358-3.74)
== END | disposition home or self-care (01) ==
LOC: POLAB3 13:23
PROVIDERS: PCP Family Medicine Geriatric Medicine; Visit Provider Family Medicine Geriatric Medicine
DX: I10 Essential (primary) hypertension (principal); E55.9 Vitamin D deficiency, unspecified; Z12.5 Encounter for screening for malignant neoplasm of prostate
CPT/HCPCS: 36415; 80053; 82306; 84153; 84443; 85025; G0103

== ENCOUNTER 2023-11-02 05:25 | Observation (INO) | payer MEDICARE, OTHER, SELFPAY ==
[2023-11-02] VITALS (7 sets, daily range): BP systolic 132–182; BP diastolic 84–120; PULSE 64–87; RESP 14–20; TEMP 36.7–37.4; O2SAT 94–99; BMI 26.9; BMI 27.2
--- NOTE | 2023-11-02 05:43 | CT_ITS ---
EXAM: CT HEAD WITHOUT INTRAVENOUS CONTRAST CLINICAL INDICATION: dizziness dizziness TECHNIQUE: Multiple axial images were obtained of the head without intravenous contrast. This CT exam was performed using one or more of the following dose reduction techniques: automated exposure control, adjustment of the mA and/or kV according to patient size, and/or use of iterative reconstruction technique. RADIATION DOSE: CTDIvol = 44.99 mGy, DLP = 812.98 mGy-cm COMPARISON: No relevant prior studies available. FINDINGS: BRAIN AND EXTRA-AXIAL SPACES: There are microvascular changes in supratentorial white matter. No intra- or extra-axial hemorrhage. No evidence of acute infarct. No intracranial mass or mass effect. There is preservation of the lerma/white matter interface. Posterior fossa structures are unremarkable. Ventricles are appropriate for age. No hydrocephalus. Basal cisterns are patent. BONES/JOINTS: Unremarkable. No discrete lytic or blastic abnormalities. VASCULATURE: There is atherosclerotic calcification of the vertebral and cavernous carotid arteries. SINUSES: Unremarkable as visualized. Clear. MASTOID AIR CELLS: There is a right-sided cochlear implant. There is an associated partial right mastoidectomy. There is opacification of numerous small right mastoid air cells, of indeterminate chronicity. There is no abnormal opacification of the right mastoid antrum. ORBITS: Visualized globes, extraocular muscles, optic nerves and retrobulbar fat appear unremarkable. CT/Brain/Head without Contrast IMPRESSION: 1. Mild chronic involutional changes of the brain. 2. No demonstrated acute intracranial process. 3. Status post right cochlear implant. 4. Opacification of numerous small right mastoid air cells, of indeterminate chronicity. Electronically Signed: Shayne Brady MD at 6:22 EST ,
--- NOTE | 2023-11-02 05:46 | EDS_ITS ---
HPI History of Present Illness Chief Complaint: Dizziness Informant: patient and spouse/S.O. Narrative Narrative: Patient presents with vertigo and nausea and vomiting. He states this started Friday. He has a sense of true spinning. He states he has noted a couple times that his eyes will flick quickly to the right side and then back to the middle when he is very vertiginous. This causes him to get nausea and vomiting. He has no abdominal pain. No chest pain palpitations. He has not been syncopal or near syncopal. He has no numbness tingling weakness. No headache. No trauma. He states it is worse if he bends over and turns. He is not sure if it is turning to the right or left is worse. He has not had this in the past. He does not get the nausea and vomiting until he gets the vertigo. He fell once when he leaned over to take his boots off but he did not hurt himself. He is not on blood thinners. [facility] Medical History (Updated 11/02/23 @ 05:[address] Arik Cade MD) Acute maxillary sinusitis, unspecified Alzheimer's disease Bilateral sensorineural hearing loss Chronic cough Cochlear implant in place Dysphagia Esophageal stenosis GERD (gastroesophageal reflux disease) Hearing loss Hereditary hearing loss Hiatal hernia Hyperlipidemia Hypertension Mild cognitive impairment Non-pressure chronic ulcer of right calf with fat layer exposed Pancreatic cyst Peripheral nerve neurostimulator device in situ Polymyalgia rheumatica Sleep apnea treated with continuous positive airway pressure (CPAP) Spinal stenosis at L4-L5 level Traumatic open wound of right lower leg Home Medications amlodipine 5 mg tablet 5 mg PO DAILY 05/27/20 [History Last Taken 05/27/20] prednisone 1 mg tablet 5 mg PO DAILY 05/27/20 [History Last Taken 04/29/23] cholecalciferol (vitamin D3) 25 mcg (1,000 unit) capsule 25 mcg PO DAILY 10/27/23 [History Last Taken Unknown] cyanocobalamin (vitamin B-12) 1,000 mcg capsule 1,000 mcg PO DAILY 10/27/23 [History Last Taken Unknown] donepezil 5 mg tablet 5 mg PO QHS 10/27/23 [History Last Taken Unknown] famotidine 40 mg tablet 40 mg PO DAILY 10/27/23 [History Last Taken Unknown] memantine 10 mg tablet 10 mg PO BID 10/27/23 [History Last Taken Unknown] meclizine 25 mg tablet 25 mg PO 4X/DAY PRN PRN Dizziness #20 tabs 11/02/23 [Rx Last Taken Unknown] Allergy/AdvReac Type Severity Reaction Status Date / Time No Known Allergies Allergy Verified 10/27/23 15:59 Surgical History (Updated 11/02/23 @ 05:[address] Arik Cade MD) History of cochlear implant History of total bilateral knee replacement Social History Smoking Status: Never smoker ROS ROS ED Constitutional Constitutional ED: Denies chills, fever(s) or subjective Eyes Eyes: Reports other Details: Eye motion with horizontal nystagmus noted per patient. ; Denies blurry vision, change in vision or diplopia ENT ENT ED: Denies ear pain, rhinorrhea or sore throat Cardiovascular Cardiovascular: Denies chest pain Respiratory/Chest Respiratory/Chest: Denies cough or dyspnea Gastrointestinal Gastrointestinal: Reports nausea and vomiting; Denies abdominal pain or diarrhea Genitourinary Genitourinary ED: Denies dysuria Musculoskeletal Musculoskeletal: Denies myalgias Integumentary Denies rash Neurologic Neurologic: Denies headache(s), paresthesias or weakness Hematologic/Lymphatic Hematologic/Lymphatic: Denies easy bleeding or easy bruising Allergic/Immunologic Allergic/Immunologic ED: Denies urticaria EXAM Physical Exam Narrative Exam Narrative: General: Patient awake alert sitting somewhat still in bed. Holding bucket. There are some emesis without blood in there. HEENT: No trauma. Mucous membranes are moist. No sinus tenderness. Cochlear implant on the right Eyes: No proptosis. Patient can look left or right upper down right now. But he will only 1 move his head. This did not induce symptoms or nystagmus at this time. But he has a history of having most problems with complex motions such as leaning forward and turning to the side. Neck is supple. No JVD. Lungs are clear bilaterally and saturations are normal at 99% on room air showing no hypoxia. Heart is regular. No murmur heard. Abdomen is soft completely nontender. Extremities show no edema or cords. Neuro: Patient able to move slightly as above without symptoms. There is no peripheral weakness numbness or discoordination at all. Const Vital Signs: 11/02/23 05:27 11/02/23 05:30 11/02/23 05:34 Temperature 98.1 F Temperature Source Temporal Pulse Rate 87 Respiratory Rate 19 H Respiratory Effort Normal Respiratory Pattern Normal Blood Pressure 182/120 H 149/99 H Blood Pressure Mean 140 115 Pulse Ox 99 Oxygen Delivery Method Room Air 11/02/23 06:39 11/02/23 09:00 Temperature Temperature Source Pulse Rate 67 Respiratory Rate 14 20 H Respiratory Effort Respiratory Pattern Blood Pressure 133/84 H Blood Pressure Mean 100 Pulse Ox 94 Oxygen Delivery Method Room Air MDM MDM MDM Narrative Medical decision making narrative: My independent interpretation of the patient's CT of the head without contrast shows no acute process. Final reading is similar but does showed some opacification of mastoid air cells but he has no discomfort there. This could be related to his cochlear implant. Patient's CBC is normal. Patient's electrolytes are normal other than mild elevation of glucose at 128. Patient's [id number] glucose was 114. Patient is feeling better with meds. He has a little bit of dizziness but he is moving his head left right up and down without problems now. Since he still has some symptoms I will give him a dose of meclizine. We will get him up and walk. I think he should be good to go home we will get him started on medications. Patient agreed he still had some vertigo. Try to walk. But when he stood up and tried to move it all he got significantly vertiginous.. He was not at all safe to walk. He has been given IV fluids, time, Zofran, Valium, meclizine. These have not helped his symptoms. He is not safe to go home. I discussed the case with the hospitalist. Lab Data Attestation: I reviewed the patient's lab results. Labs: Laboratory Results - last 24 hr 11/02/23 11/02/23 05:30 05:32 WBC 7.0 RBC 5.25 Hgb 15.0 Hct 45.4 MCV 86.5 MCH 28.6 MCHC 33.0 RDW Std Deviation 42.6 RDW Coeff of Collin 13.4 Plt Count 189 MPV 9.7 Immature Gran % (Auto) 0.400 Neut % (Auto) 60.5 Lymph % (Auto) 27.7 [place] % (Auto) 8.4 Eos % (Auto) 2.6 Baso % (Auto) 0.4 Absolute Neuts (auto) 4.3 Absolute Lymphs (auto) 1.95 Nucleated RBC % 0 Sodium 140 Potassium 3.5 Chloride 107 Carbon Dioxide 25.0 Anion Gap 8 BUN 16 Creatinine 0.94 Estim Creat Clear Calc 80.26 Est GFR (MDRD) Af Amer 103 Est GFR (MDRD) Non-Af 85 BUN/Creatinine Ratio 17.1 Glucose 128 H Calcium 8.9 POC Glucose 114 H Radiography Diagnostic Testing: Clinical Impression(s) from Imaging Studies Brain CT 11/02/23 05:43 IMPRESSION: 1. Mild chronic involutional changes of the brain. 2. No demonstrated acute intracranial process. 3. Status post right cochlear implant. 4. Opacification of numerous small right mastoid air cells, of indeterminate chronicity. Electronically Signed: Shayne Brady MD at 6:22 EST Reading Location ID and State: [facility] / [place] , Service support , Discharge Plan Triage Chief Complaint: Dizziness ED Provider: Arik Cade Dx/Rx/DC Orders Clinical Impression: Vertigo, Nausea & vomiting Instructions: ED Vertigo, Unspecified Prescriptions: New meclizine 25 mg tablet 25 mg PO 4X/DAY PRN PRN (Reason: Dizziness) Qty: 20 0RF No Action cholecalciferol (vitamin D3) 25 mcg (1,000 unit) capsule 25 mcg PO DAILY donepezil 5 mg tablet 5 mg PO QHS famotidine 40 mg tablet 40 mg PO DAILY memantine 10 mg tablet 10 mg PO BID cyanocobalamin (vitamin B-12) 1,000 mcg capsule 1,000 mcg PO DAILY amlodipine 5 MG tablet 5 mg PO DAILY prednisone 1 MG tablet 5 mg PO DAILY Primary Care Provider: Mike Aburto Chi Referrals: Mike Aburto Chi, MD [Primary Care Provider] - 3-5 Days Disposition Disposition: Acute Care Hospital [facility]
[2023-11-02 05:50] LABS: Bedside Glucose 114 mg/dL (74-106)
[2023-11-02] MEDS: 0.9% Normal Saline (1000mL) 1,000 ML 1000 ML IV (05:51)
[2023-11-02] MEDS: Ondansetron 4 MG/2 ML Vial IV (05:52)
[2023-11-02] MEDS: diazePAM 5 MG Tablet PO (05:52)
[2023-11-02 05:57] LABS: Absolute Lymphocyte Count 1.95 X10^3/uL (0.83-4.51); Absolute Neutrophil Count 4.3 X10^3/uL (2.0-7.7); Basophil# 0.03 X10^3/uL; Basophil% 0.4 % (0-1); Eosinophil# 0.18 X10^3/uL; Eosinophils% 2.6 % (0-5); Hematocrit 45.4 % (40-54); Lymphocyte # 1.95 X10^3/ul (0.83-4.51); Lymphocyte % 27.7 % (19-41); Mean Corpuscular Hgb 28.6 pg (27.0-32.0); Mean Corpuscular Volume 86.5 fL (80-94); Mean Platelet Vol. 9.7 fl (6.2-12.0); Monocyte# 0.59 X10^3/uL; Monocyte% 8.4 % (0-10); NRBC Flagged by Analyzer 0 % (0-5); Neutrophil # 4.26 X10^3/uL (2.7-7.7); Neutrophil % 60.5 % (47-70); Platelet Count 189 K/mm3 (150-450); RBC Distribution Width CV 13.4 % (11.6-14.6); RBC Distribution Width SD 42.6 fl (35.1-43.9); Red Blood Count 5.25 M/mm3 (4.6-6.2)
[2023-11-02 06:16] LABS: Anion Gap 8 (5-15); BUN 16 mg/dL (7-18); BUN/Creat Ratio 17.1 RATIO (10-20); Calcium,Total 8.9 mg/dL (8.5-10.1); Chloride 107 mmol/L (98-107); Creatinine, Serum 0.94 mg/dL (0.70-1.30); EST Glomerular Filtration Rate 85 mL/min (>60); Est Glom Filt Rate - Afr Amer 103 mL/min (>60); Estimated Creatinine Clearance 80.26 ml/min; Glucose 128 mg/dL (74-106); Potassium 3.5 mmol/L (3.5-5.1); Sodium Level 140 mmol/L (136-145)
[2023-11-02] MEDS: Meclizine HCl 25 MG Tablet PO (07:18)
--- NOTE | 2023-11-02 07:25 | ED.RN ---
pt states he is unable to ambulate at this time. this rn tells pt that we will wait 30 minutes to give the meclizine time to work and this rn will come back to attempt ambulation again. pt agrees. will follow up with pt 30 minutes after nuclear medicine technician.
--- NOTE | 2023-11-02 07:50 | ED.RN ---
this rn attempts to ambulate pt. pt moves head side to side and pt states you know, im still pretty dizzy. i wont be able to walk. dr. barnes updated.
--- NOTE | 2023-11-02 09:28 | PCM.HP.STD ---
HPI - General General Date of Admission: 11/02/23 Date of Service: 11/02/23 Chief Complaint: Vertigo HPI Narrative TAMRA GUZMAN, is a 68-year-old male history of cochlear implant, GERD, PMR, mild cognitive impairment, sleep apnea, hypertension, presented to [facility] 11/02/2023 with vertigo, nausea, vomiting with a true spinning sensation that causes nausea and vomiting. Worsened when bending over or turning head. Has not had this in the past. In the ED symptoms concerning for BPPV, given meclizine and Valium with some improvement however patient still unsteady and unable to ambulate and high fall risk so hospitalist contacted for admission. Patient seen at bedside with , symptoms started on Friday and are intermittent, he had observed his eyes jumping to the right during one of the symptoms and reports that symptoms will come on suddenly if he bends over or suddenly turns his head, has sudden movements but just sitting there at this time he is not having symptoms. Has had several falls associated with the symptoms. Denies any cough, nasal congestion, sore throat, fevers or any other infectious symptoms. Has no numbness, weakness, tingling or other neurologic symptoms. Denies any recent medication changes, had a cochlear implant put in but that was back in July and had not had the symptoms until Friday. [facility] Medical History (Updated 11/02/23 @ 05:[address] Arik Cade MD) Acute maxillary sinusitis, unspecified Alzheimer's disease Bilateral sensorineural hearing loss Chronic cough Cochlear implant in place Dysphagia Esophageal stenosis GERD (gastroesophageal reflux disease) Hearing loss Hereditary hearing loss Hiatal hernia Hyperlipidemia Hypertension Mild cognitive impairment Non-pressure chronic ulcer of right calf with fat layer exposed Pancreatic cyst Peripheral nerve neurostimulator device in situ Polymyalgia rheumatica Sleep apnea treated with continuous positive airway pressure (CPAP) Spinal stenosis at L4-L5 level Traumatic open wound of right lower leg Home Medications amlodipine 5 mg tablet 5 mg PO DAILY 05/27/20 [History Last Taken 05/27/20] prednisone 1 mg tablet 5 mg PO DAILY 05/27/20 [History Last Taken 04/29/23] cholecalciferol (vitamin D3) 25 mcg (1,000 unit) capsule 25 mcg PO DAILY 10/27/23 [History Last Taken Unknown] cyanocobalamin (vitamin B-12) 1,000 mcg capsule 1,000 mcg PO DAILY 10/27/23 [History Last Taken Unknown] donepezil 5 mg tablet 5 mg PO QHS 10/27/23 [History Last Taken Unknown] famotidine 40 mg tablet 40 mg PO DAILY 10/27/23 [History Last Taken Unknown] memantine 10 mg tablet 10 mg PO BID 10/27/23 [History Last Taken Unknown] meclizine 25 mg tablet 25 mg PO 4X/DAY PRN PRN Dizziness #20 tabs 11/02/23 [Rx Last Taken Unknown] Allergy/AdvReac Type Severity Reaction Status Date / Time No Known Allergies Allergy Verified 10/27/23 15:59 Surgical History (Updated 11/02/23 @ 05:[address] Arik Cdae MD) History of cochlear implant History of total bilateral knee replacement Social History Smoking Status: Never smoker ROS ROS Narrative General: Denies fever/chills HENT: Denies headache, denies stuffy nose, denies sore throat EYES: Reports vision only changes when he is having the episodes and his eyes are jerking Resp: Denies cough, denies shortness of breath Cardiac: Denies chest pain GI: Denies abdominal pain, denies changes in bowel, denies nausea/vomiting : Denies changes in urination Extremity: Denies swelling MSK: Denies weakness Neuro: Denies any numbness/tingling, spinning sensation when he bends over or moves in certain positions Heme: Denies any bleeding or bruising Skin: Denies rashes Psychiatric: No complaints voiced Vital Signs Vital Signs Vital Signs: 11/02/23 05:27 11/02/23 05:30 11/02/23 05:34 Temperature 98.1 F Temperature Source Temporal Pulse Rate 87 Respiratory Rate 19 H Respiratory Effort Normal Respiratory Pattern Normal Blood Pressure 182/120 H 149/99 H Blood Pressure Mean 140 115 Pulse Ox 99 Oxygen Delivery Method Room Air 11/02/23 06:39 11/02/23 09:00 Temperature Temperature Source Pulse Rate 67 Respiratory Rate 14 20 H Respiratory Effort Respiratory Pattern Blood Pressure 133/84 H Blood Pressure Mean 100 Pulse Ox 94 Oxygen Delivery Method Room Air Weight Weight: 89.9 kg Body Mass Index (BMI) 26.9 Physical Exam Narrative General: Alert, oriented, no apparent distress HEENT: Atraumatic, normocephalic Eyes: Anicteric, normal conjunctiva, extraocular movements intact, pupils equal Neck: Supple Respiratory: Clear to auscultation bilaterally, normal respiratory effort Cardiovascular: Regular rate and rhythm GI: Soft, nontender, nondistended Extremities: No edema Musculoskeletal: Strength 5 out of 5 in right upper extremity, 5 out of 5 left upper extremity, 5 out of 5 right lower extremity, 5 out of 5 left lower extremity Neuro: No overt focal neurological deficits, cranial nerves II through XII intact, [id number] without significant difficulty bilaterally Skin: No rashes appreciated Psych: Cooperative Results Lab / Micro Data 11/02/23 05:30 11/02/23 05:30 Labs: Laboratory Results - last 24 hr 11/02/23 05:30: WBC 7.0, RBC 5.25, Hgb 15.0, Hct 45.4, MCV 86.5, MCH 28.6, MCHC 33.0, RDW Std Deviation 42.6, RDW Coeff of Collin 13.4, Plt Count 189, MPV 9.7, Immature Gran % (Auto) 0.400, Neut % (Auto) 60.5, Lymph % (Auto) 27.7, Gates % (Auto) 8.4, Eos % (Auto) 2.6, Baso % (Auto) 0.4, Absolute Neuts (auto) 4.3, Absolute Lymphs (auto) 1.95, Nucleated RBC % 0, Sodium 140, Potassium 3.5, Chloride 107, Carbon Dioxide 25.0, Anion Gap 8, BUN 16, Creatinine 0.94, Estim Creat Clear Calc 80.26, Est GFR (MDRD) Af Amer 103, Est GFR (MDRD) Non-Af 85, BUN/Creatinine Ratio 17.1, Glucose 128 H, Calcium 8.9 11/02/23 05:32: POC Glucose 114 H Imagaing Radiology Impression Brain CT 11/02/23 05:43 IMPRESSION: 1. Mild chronic involutional changes of the brain. 2. No demonstrated acute intracranial process. 3. Status post right cochlear implant. 4. Opacification of numerous small right mastoid air cells, of indeterminate chronicity. Electronically Signed: Shayne Brady MD at 6:22 EST , Assessment & Plan Assessment/Plan (1) Vertigo: (2) Sleep apnea treated with continuous positive airway pressure (CPAP): (3) Polymyalgia rheumatica: (4) Mild cognitive impairment: (5) GERD (gastroesophageal reflux disease): PLAN: Plan #Verigo -Suspect BPPV -Neuroexam normal and symptoms classic for this, PT/OT, will likely need vestibular rehab if not proving -Zofran and meclizine as needed, will also gently hydrate -No infectious symptoms or concern for vestibular neuritis at this time -CT head with mild chronic changes and opacification of small right mastoid air cells of indeterminate chronicity -Given normal neuroexam and his symptoms do not feel he needs urgent MRI at this time, if symptoms change or do not improve could always consider this and/or neurology consult however suspect patient will continue to improve and will need short stay in the hospital -Fall precautions #GERD -Continue famotidine # Hearing loss with cochlear implant -Noted # DEMOND -CPAP nightly # MCI -Will continue donepezil and memantine at this time # PMR -Continue low-dose prednisone #DVT ppx: SCDs Mitra Martinez MD Time spent in the patient's overall evaluation,decision-making process, review of diagnostic data, adjustment of management, discussion with other providers, nursing nursing and ancillary staff involved in patient's care documentation, 57 minutes Charges/Coding Visit Charges Inpatient E&M: 34803 Init Hosp L2
[2023-11-02] MEDS: amLODIPine 5 MG Tablet PO (12:03)
[2023-11-02] MEDS: Memantine Hydrochloride 10 MG Tablet PO ×2 (12:04→22:36)
[2023-11-02] MEDS: predniSONE 5 MG Tablet PO (12:04)
[2023-11-02] MEDS: 0.9% Normal Saline (1000mL) 1,000 ML 50 ML IV (12:08)
[2023-11-02] MEDS: Meclizine 12.5 MG Tablet PO ×2 (12:13→18:05)
--- NOTE | 2023-11-02 15:00 | CPS ---
Patient has a CPAP at home. Sleep Lab CPAP set-up at bedside with F20 Medium mask.
[2023-11-02] MEDS: Donepezil HCl 5 MG Tablet PO (22:36)
[2023-11-03] MEDS: Meclizine 12.5 MG Tablet PO (02:52)
[2023-11-03 02:53] VITALS: BP 154/100; PULSE 63; RESP 16; TEMP 36.4; O2SAT 100
--- NOTE | 2023-11-03 05:04 | CPS ---
PATIENT ON SLEEP LAB PAP MACHINE FOR THE NIGHT, AT HOME SETTINGS.
[2023-11-03 05:11] LABS: Absolute Lymphocyte Count 1.07 X10^3/uL (0.83-4.51); Absolute Neutrophil Count 4.4 X10^3/uL (2.0-7.7); Basophil# 0.01 X10^3/uL; Basophil% 0.2 % (0-1); Eosinophils% 1.7 % (0-5); Hematocrit 44.9 % (40-54); Hemoglobin 14.3 g/dL (13.0-16.5); Lymphocyte # 1.07 X10^3/ul (0.83-4.51); Lymphocyte % 18.1 % (19-41); Mean Corp Hgb Conc 31.8 g/dL (32-36); Mean Corpuscular Hgb 27.7 pg (27.0-32.0); Mean Corpuscular Volume 86.8 fL (80-94); Mean Platelet Vol. 9.5 fl (6.2-12.0); Monocyte# 0.36 X10^3/uL; Monocyte% 6.1 % (0-10); NRBC Flagged by Analyzer 0 % (0-5); Neutrophil # 4.37 X10^3/uL (2.7-7.7); Neutrophil % 73.7 % (47-70); Platelet Count 159 K/mm3 (150-450); RBC Distribution Width CV 13.4 % (11.6-14.6); RBC Distribution Width SD 42.6 fl (35.1-43.9); Red Blood Count 5.17 M/mm3 (4.6-6.2); White Blood Count 5.9 K/mm3 (4.4-11.0)
[2023-11-03 06:12] LABS: ALB/GLOB Ratio 1.1 RATIO (0.9-2.4); AST(SGOT) 18 U/L (15-37); Alanine Aminotransfer ALT/SGPT 19 U/L (16-61); Albumin, Serum 3.1 g/dL (3.2-5.0); Alkaline Phosphatase 102 U/L (45-117); Anion Gap 3 (5-15); BUN 12 mg/dL (7-18); BUN/Creat Ratio 14.5 RATIO (10-20); Calcium,Total 8.9 mg/dL (8.5-10.1); Chloride 109 mmol/L (98-107); Creatinine, Serum 0.83 mg/dL (0.70-1.30); EST Glomerular Filtration Rate 98 mL/min (>60); Est Glom Filt Rate - Afr Amer 118 mL/min (>60); Globulin 2.9 g/dL (2.2-4.2); Glucose 94 mg/dL (74-106); Magnesium 2.1 mg/dL (1.6-2.6); Potassium 4.2 mmol/L (3.5-5.1); Sodium Level 140 mmol/L (136-145); Thyroid Stim Hormone (TSH) 0.39 uIU/mL (0.358-3.74)
[2023-11-03] MEDS: Memantine Hydrochloride 10 MG Tablet PO (07:57)
[2023-11-03] MEDS: Famotidine 20 MG Tablet 40 MG PO (07:57)
[2023-11-03] MEDS: 0.9% Normal Saline (1000mL) 1,000 ML 50 ML IV (07:57)
[2023-11-03] MEDS: predniSONE 5 MG Tablet PO (07:58)
[2023-11-03] MEDS: amLODIPine 5 MG Tablet PO (07:58)
[2023-11-03 08:00] VITALS: BP 159/98; PULSE 70; RESP 18; TEMP 36.9; O2SAT 98
--- NOTE | 2023-11-03 08:06 | PN.HOSP_ITS ---
Reason for Visit Reason for Visit: Diagnoses Mild cognitive impairment of uncertain or unknown etiology (11/02/23) Sleep apnea, unspecified (11/02/23) Gastro-esophageal reflux disease without esophagitis (11/02/23) Polymyalgia rheumatica (11/02/23) Dizziness and giddiness (11/02/23) Subjective Subjective Patient is a 68-year-old gentleman with history of cochlear implant presented with vertig Objective Data Objective Data Vital Signs: Vital Signs Temp Pulse Resp BP Pulse Ox O2 Del Method 98.5 F 70 18 159/98 H 98 Room Air 11/03/23 08:00 11/03/23 08:00 11/03/23 08:00 11/03/23 08:00 11/03/23 08:00 11/03/23 08:00 Oxygen Delivery Method Room Air Weight: 91.217 kg Body Mass Index (BMI) 27.2 Intake & Output: Intake and Output for Last 24 Hours 11/01/23 11/02/23 11/03/23 23:59 23:59 23:59 Intake Total 1000 / 1300 1590.83 / 1590.83 Balance 1000 / 1300 1590.83 / 1590.83 Lab / Micro Data 11/03/23 04:50 11/03/23 04:50 Labs: Laboratory Results - last 24 hr 11/03/23 04:50: WBC 5.9, RBC 5.17, Hgb 14.3, Hct 44.9, MCV 86.8, MCH 27.7, MCHC 31.8 L, RDW Std Deviation 42.6, RDW Coeff of Collin 13.4, Plt Count 159, MPV 9.5, Immature Gran % (Auto) 0.200, Neut % (Auto) 73.7 H, Lymph % (Auto) 18.1 L, [place] % (Auto) 6.1, Eos % (Auto) 1.7, Baso % (Auto) 0.2, Absolute Neuts (auto) 4.4, Absolute Lymphs (auto) 1.07, Nucleated RBC % 0, Sodium 140, Potassium 4.2, Chloride 109 H, Carbon Dioxide 28.0, Anion Gap 3 L, BUN 12, Creatinine 0.83, Estim Creat Clear Calc 90.90, Est GFR (MDRD) Af Amer 118, Est GFR (MDRD) Non-Af 98, BUN/Creatinine Ratio 14.5, Glucose 94, Calcium 8.9, Magnesium 2.1, Total Bilirubin 0.80, AST 18, ALT 19, Alkaline Phosphatase 102, Total Protein 6.0 L, Albumin 3.1 L, Globulin 2.9, Albumin/Globulin Ratio 1.1, TSH 0.39 Physical Exam Narrative GENERAL: cooperative HEENT: Atraumatic; normocephalic EYES; Anicteric, Normal Conjunctiva NECK; supple, normal thyroid, RESPIRATORY: Diminished to auscultation CARDIOVASCULAR: Regular S1 S2, GI: soft, normoactive bowel sounds, : No Renal angle tenderness; EXTREMITIES: No edema, no clubbing, MUSCULOSKELETAL: no muscle wasting NEURO: Awake; no lateralizing signs. SKIN: No Rash PSYCH; Flat affect Assessment & Plan Assessment/Plan (1) Vertigo: (2) Sleep apnea treated with continuous positive airway pressure (CPAP): (3) Polymyalgia rheumatica: (4) Mild cognitive impairment: (5) GERD (gastroesophageal reflux disease): PLAN: Plan Patient is a 68-year-old gentleman with history of cochlear implant presented with vertigo 1. Acute vertigo ? Secondary to BPPV. Requested for PT OT eval 2. GERD -Continue famotidine 3. Hearing loss with cochlear implant -Noted 4. DEMOND -CPAP nightly 5. Mild cognitive impairment -Will continue donepezil and memantine at this time 6. Polymyalgia rheumatica -Continue low-dose prednisone 7. DVT prophylaxis ? SCDs Time spent in the patient's overall evaluation,decision-making process, review of diagnostic data, adjustment of management, discussion with other providers, nursing nursing and ancillary staff involved in patient's care documentation,35 minutes Charges/Coding Visit Charges Inpatient E&M: 35286 Subs Hosp L2
--- NOTE | 2023-11-03 11:05 | CASEMGMT ---
Met with?patient and his to complete DORADO form. DORADO form explained to?both who voiced understanding. Patient stated his hands were too shaky and asked that his sign form. Original form placed in pt?s chart and copy provided to?patient. Mackenzie Burt, Discharge Planning Asst
--- NOTE | 2023-11-03 11:59 | PCM.DC.SUM ---
Providers Date of Admission: 11/02/23 Date of Discharge: 11/03/23 Primary Care Physician: Dr. Mike Aburto MD Reason For Visit: INTRACTABLE VERTIGO/FALLS Diagnosis Discharge Diagnosis (1) Vertigo: Status: Acute Code(s): R42 - Dizziness and giddiness (2) Sleep apnea treated with continuous positive airway pressure (CPAP): Status: Acute Code(s): G47.30 - Sleep apnea, unspecified (3) Polymyalgia rheumatica: Status: Acute Code(s): M35.3 - Polymyalgia rheumatica (4) Mild cognitive impairment: Status: Acute Code(s): G31.84 - Mild cognitive impairment of uncertain or unknown etiology (5) GERD (gastroesophageal reflux disease): Status: Acute Code(s): K21.9 - Gastro-esophageal reflux disease without esophagitis Plan Patient is a 68-year-old gentleman with history of cochlear implant presented with vertigo 1. Acute vertigo ? Secondary to BPPV. Requested for PT OT eval 2. GERD -Continue famotidine 3. Hearing loss with cochlear implant -Noted 4. DEMOND -CPAP nightly 5. Mild cognitive impairment -Will continue donepezil and memantine at this time 6. Polymyalgia rheumatica -Continue low-dose prednisone 7. DVT prophylaxis ? SCDs Time spent in the patient's overall evaluation,decision-making process, review of diagnostic data, adjustment of management, discussion with other providers, nursing nursing and ancillary staff involved in patient's care documentation,35 minutes Medications at Discharge Home Medications amlodipine 5 mg tablet 5 mg PO DAILY 05/27/20 prednisone 1 mg tablet 5 mg PO DAILY 05/27/20 cholecalciferol (vitamin D3) 25 mcg (1,000 unit) capsule 25 mcg PO DAILY 10/27/23 cyanocobalamin (vitamin B-12) 1,000 mcg capsule 1,000 mcg PO DAILY 10/27/23 donepezil 5 mg tablet 5 mg PO QHS 10/27/23 famotidine 40 mg tablet 40 mg PO DAILY 10/27/23 memantine 10 mg tablet 10 mg PO BID 10/27/23 meclizine 25 mg tablet 25 mg PO 4X/DAY PRN PRN Dizziness #20 tabs 11/02/23 Hospital Course Summary of Care Provided Minutes Spent on Discharge: 35 Physical Exam Narrative GENERAL: cooperative HEENT: Atraumatic; normocephalic EYES; Anicteric, Normal Conjunctiva NECK; supple, normal thyroid, RESPIRATORY: Diminished to auscultation CARDIOVASCULAR: Regular S1 S2, GI: soft, normoactive bowel sounds, : No Renal angle tenderness; EXTREMITIES: No edema, no clubbing, MUSCULOSKELETAL: no muscle wasting NEURO: Awake; no lateralizing signs. SKIN: No Rash PSYCH; Flat affect Weight / BMI Weight Weight: 91.217 kg Body Mass Index (BMI) 27.2 ABG / Lab / Microbiology Data 11/03/23 04:50 11/03/23 04:50 Laboratory: Laboratory Results - last 24 hr 11/03/23 04:50: WBC 5.9, RBC 5.17, Hgb 14.3, Hct 44.9, MCV 86.8, MCH 27.7, MCHC 31.8 L, RDW Std Deviation 42.6, RDW Coeff of Collin 13.4, Plt Count 159, MPV 9.5, Immature Gran % (Auto) 0.200, Neut % (Auto) 73.7 H, Lymph % (Auto) 18.1 L, [place] % (Auto) 6.1, Eos % (Auto) 1.7, Baso % (Auto) 0.2, Absolute Neuts (auto) 4.4, Absolute Lymphs (auto) 1.07, Nucleated RBC % 0, Sodium 140, Potassium 4.2, Chloride 109 H, Carbon Dioxide 28.0, Anion Gap 3 L, BUN 12, Creatinine 0.83, Estim Creat Clear Calc 90.90, Est GFR (MDRD) Af Amer 118, Est GFR (MDRD) Non-Af 98, BUN/Creatinine Ratio 14.5, Glucose 94, Calcium 8.9, Magnesium 2.1, Total Bilirubin 0.80, AST 18, ALT 19, Alkaline Phosphatase 102, Total Protein 6.0 L, Albumin 3.1 L, Globulin 2.9, Albumin/Globulin Ratio 1.1, TSH 0.39 D/C Instructions Discharge Diet: No restrictions Discharge Activity: Return to Normal Activity Call your doctor if you observe: Fever of 101 or Higher, Shortness of breath, Fainting spells and Chest pain Meaningful Use Info Meaningful Use Diagnoses (Choose all that apply): None applicable Discharge Plan Admission Admit Date/Time: 11/02/23 09:28 Attending Provider: Kar Park Primary Care Provider: Mike Aburto Chi Consulting Providers: Mitra Martinez Instructions Patient Instructions: ED Vertigo, Unspecified Discharge Orders/Prescriptions Prescriptions: New meclizine 25 mg tablet 25 mg PO 4X/DAY PRN PRN (Reason: Dizziness) Qty: 20 0RF Continued cholecalciferol (vitamin D3) 25 mcg (1,000 unit) capsule 25 mcg PO DAILY donepezil 5 mg tablet 5 mg PO QHS famotidine 40 mg tablet 40 mg PO DAILY memantine 10 mg tablet 10 mg PO BID cyanocobalamin (vitamin B-12) 1,000 mcg capsule 1,000 mcg PO DAILY amlodipine 5 MG tablet 5 mg PO DAILY prednisone 1 MG tablet 5 mg PO DAILY Referrals / Follow Up: Shubham Jensen MD [Med Staff - Active Staff] - Within 1 Week Mike Aburto Chi, MD [Primary Care Provider] - 3-5 Days Disposition Disposition (needs filled in before D/C Order can be placed): Home, Self Care Charges/Coding Visit Charges Inpatient E&M: 21067 Disch Hosp >30min
--- NOTE | 2023-11-03 12:02 | CASEMGMT ---
Pt is agreeable to outpt vestibular therapy and states he will set this up after DC. Dr. Park paged for script. Pt also states that he has a walker at home now and does not need a new one. Pt state he lives on a [place] and denies any additional needs at this time.
--- NOTE | 2023-11-03 13:48 | CASEMGMT ---
Dr. Park has not been able to sign the Rx for outpt therapy. This RN CM to pt room at this time. Pt updated that we can fax the order to [facility] and the pt does not need to wait on us to DC. Pt states his is letting their dog out at this time and will be returning soon for his ride home. Pt RN updated.
[2023-11-03 14:06] VITALS: BP 154/94; PULSE 69; RESP 18; TEMP 36.7; O2SAT 18
--- NOTE | 2023-11-03 14:44 | CASEMGMT ---
Outpatient Rx faxed to [facility].
--- NOTE | 2023-11-03 14:46 | CHAPLAIN ---
Type of Pastoral Visit _x__ Initial Visit ___ Follow-up Visit ___ On-call Visit ___ General Patient Visit ___ Spiritual Assessment ___ Family Conference ___ Bereavement ___ Rapid Response ___ Code Blue ___ Other (describe below) Pastoral Care Referral From _x__ Patient ___ Family ___ Nurse ___ Physician ___ Advertising Dispatch Clerks Supervisor ___ Mass Spectrometry Specialist ___ Other (describe below) Sacrament/Intervention _x__ Active listening ___ Anointing ___ Denominational ___ Bereavement ___ Communion _x__ Do exploration ___ _x__ Life review _x__ Prayer ___ Reconciliation ___ Sacrament of Sick ___ Supportive presence ___ Wedding ___ Other (describe below) Pastoral Comments patient is welcoming and asks several questions of this extruder; pt gives some life review, speaks of a more recent move to [place], 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
== END 2023-11-03 14:17 | disposition home or self-care (01) ==
LOC: ED 09:31 → MS3 09:39
PROVIDERS: Admitting Provider Internal Medicine; Emergency Provider Emergency Medicine; PCP Family Medicine Geriatric Medicine; Visit Provider Internal Medicine
DX: R42 Dizziness and giddiness (principal); M35.3 Polymyalgia rheumatica; G30.9 Alzheimer's disease, unspecified; F02.80 Dementia in other diseases classified elsewhere, unspecified severity, without behavioral disturbance, psychotic disturbance, mood disturbance, and anxiety; I10 Essential (primary) hypertension; E78.5 Hyperlipidemia, unspecified; G31.84 Mild cognitive impairment of uncertain or unknown etiology; G47.30 Sleep apnea, unspecified; K21.9 Gastro-esophageal reflux disease without esophagitis; R11.2 Nausea with vomiting, unspecified; Z79.899 Other long term (current) drug therapy
CPT/HCPCS: 36415; 70450; 80048; 80053; 82962; 83735; 84443; 85025; 94003; 94660; 96374; 97162; 97165; 99221; 99283; J7030; A4216; G0378; J2405

== ENCOUNTER → 2023-11-06 | Outpatient (CLI) | payer MEDICARE, OTHER, SELFPAY | END | disposition home or self-care (01) | PROVIDERS: PCP Family Medicine Geriatric Medicine; Visit Provider Family Medicine Geriatric Medicine | DX: G30.9 Alzheimer's disease, unspecified (principal) | CPT/HCPCS: 36415 ==

== ENCOUNTER → 2023-11-20 | Outpatient (CLI) | payer MEDICARE, OTHER, SELFPAY | END | disposition home or self-care (01) | LOC: MRI 16:03 | PROVIDERS: PCP Family Medicine Geriatric Medicine; Referring Provider Family Medicine Geriatric Medicine; Visit Provider Family Medicine Geriatric Medicine | DX: G30.9 Alzheimer's disease, unspecified (principal) ==

== ENCOUNTER → 2023-11-21 | Outpatient (CLI) | payer MEDICARE, OTHER, SELFPAY ==
--- NOTE | 2023-11-21 12:56 | CDU_ITS ---
Reason For Study: RT carotid calcification by CT, RT Carotid occlusion/stenosis Rt. Velocities/BP Lt. Velocities/BP Prox CCA 95.7/14.5 cm/sec. Prox CCA 179.1/21.1 cm/sec. Mid CCA 101.4/17.9 cm/sec. Mid CCA 103.9/24.1 cm/sec. Dist CCA 102.5/22.3 cm/sec. Dist CCA 102.7/27.8 cm/sec. Prox ICA 83.9/10.2 cm/sec. Prox ICA 85.2/18.1 cm/sec. Mid ICA 103.6/30.0 cm/sec. Mid ICA 77.8/26.8 cm/sec. Dist ICA 90.5/22.3 cm/sec. Dist ICA 98.9/30.6 cm/sec. Rt. ICA/CCA = 103.6/101.4=1.0. Lt. ICA/CCA = 98.9/103.9=1.0. Prox ECA 83.9/21.2 cm/sec. Prox ECA 93.9/13.2 cm/sec. Rt. Vert. 63.0/15.7 cm/sec. Lt. Vert. 52.8/12.2 cm/sec. Right Extracranial There is intimal thickening but no significant atherosclerotic plaque noted in the right common carotid artery. There is heterogeneous, smooth atherosclerotic plaque noted in the right internal carotid artery. There is no significant atherosclerotic plaque noted in the right external carotid artery. Antegrade flow is noted in the right vertebral artery. Left Extracranial There is intimal thickening but no significant atherosclerotic plaque noted in the left common carotid artery. There is heterogeneous, irregular atherosclerotic plaque noted in the left internal carotid artery. There is intimal thickening but no significant atherosclerotic plaque noted in the left external carotid artery. Antegrade flow is noted in the left vertebral artery. Procedure Carotid Duplex 17730. This is a Carotid Duplex examination using B-mode, color flow and specral Doppler. The study was technically difficult. Exam performed in department. VL/Carotid Duplex Ultrasound Interpretation Summary Mild (<50%) stenosis right extracranial internal carotid. Mild (<50%) stenosis left extracranial internal carotid. Patent and antegrade vertebrals bilaterally. Ordering Physician: Rogelio Preciado Referring Physician: Mike Aburto Chi Performed By: Zayra Monsalve, MORE, RVT
== END | disposition home or self-care (01) ==
LOC: CVS 12:55
PROVIDERS: PCP Family Medicine Geriatric Medicine; Referring Provider Internal Medicine Cardiovascular Disease; Visit Provider Internal Medicine Cardiovascular Disease
DX: I65.21 Occlusion and stenosis of right carotid artery (principal); E78.5 Hyperlipidemia, unspecified
CPT/HCPCS: 93880

== ENCOUNTER → 2023-11-26 | Outpatient (CLI) | payer MEDICARE, OTHER, SELFPAY ==
[2023-11-26 09:32] LABS: AST(SGOT) 23 U/L (15-37); Alanine Aminotransfer ALT/SGPT 20 U/L (16-61); Albumin, Serum 3.3 g/dL (3.2-5.0); Alkaline Phosphatase 96 U/L (45-117); Bilirubin, Direct 0.21 mg/dL (0.00-0.30); Cholesterol 146 mg/dL (200); Globulin 3.1 g/dL (2.2-4.2); High Density Lipoprotein 66 mg/dL; Protein, Total 6.4 g/dL (6.4-8.2); Triglycerides 55 mg/dL; Very Low Density Lipoprotein 11 mg/dL (5-40)
== END | disposition home or self-care (01) ==
LOC: LAB 07:30
PROVIDERS: PCP Family Medicine Geriatric Medicine; Referring Provider Internal Medicine Cardiovascular Disease; Visit Provider Internal Medicine Cardiovascular Disease
DX: E78.5 Hyperlipidemia, unspecified (principal)
CPT/HCPCS: 36415; 80061; 80076

== ENCOUNTER → 2024-03-19 | Outpatient (CLI) | payer MEDICARE, OTHER, SELFPAY ==
[2024-03-19 11:56] LABS: Absolute Lymphocyte Count 0.61 X10^3/uL (0.83-4.51); Absolute Neutrophil Count 3.9 X10^3/uL (2.0-7.7); Basophil# 0.03 X10^3/uL; Basophil% 0.6 % (0-1); Eosinophil# 0.05 X10^3/uL; Hematocrit 45.1 % (40-54); Hemoglobin 14.1 g/dL (13.0-16.5); Lymphocyte # 0.61 X10^3/ul (0.83-4.51); Lymphocyte % 12.5 % (19-41); Mean Corp Hgb Conc 31.3 g/dL (32-36); Mean Corpuscular Hgb 27.5 pg (27.0-32.0); Mean Corpuscular Volume 88.1 fL (80-94); Mean Platelet Vol. 10.8 fl (6.2-12.0); Monocyte# 0.32 X10^3/uL; Monocyte% 6.6 % (0-10); NRBC Flagged by Analyzer 0 % (0-5); Neutrophil # 3.85 X10^3/uL (2.7-7.7); Neutrophil % 78.9 % (47-70); Platelet Count 121 K/mm3 (150-450); RBC Distribution Width CV 13.8 % (11.6-14.6); Red Blood Count 5.12 M/mm3 (4.6-6.2); White Blood Count 4.9 K/mm3 (4.4-11.0)
[2024-03-19 12:17] LABS: Vitamin D,25 Hydroxy 30.3 ng/mL
[2024-03-19 12:30] LABS: ALB/GLOB Ratio 1.2 RATIO (0.9-2.4); AST(SGOT) 26 U/L (15-37); Alanine Aminotransfer ALT/SGPT 33 U/L (16-61); Albumin, Serum 3.5 g/dL (3.2-5.0); Alkaline Phosphatase 94 U/L (45-117); Anion Gap 5 (5-15); BUN 19 mg/dL (7-18); BUN/Creat Ratio 19.3 RATIO (10-20); Calcium,Total 8.9 mg/dL (8.5-10.1); Chloride 106 mmol/L (98-107); Cholesterol 138 mg/dL (200); Creatinine, Serum 0.98 mg/dL (0.70-1.30); EST Glomerular Filtration Rate 80 mL/min (>60); Est Glom Filt Rate - Afr Amer 97 mL/min (>60); Globulin 2.8 g/dL (2.2-4.2); Glucose 94 mg/dL (74-106); High Density Lipoprotein 76 mg/dL; Potassium 4.3 mmol/L (3.5-5.1); Protein, Total 6.3 g/dL (6.4-8.2); Sodium Level 141 mmol/L (136-145); Thyroid Stim Hormone (TSH) 0.94 uIU/mL (0.358-3.74); Triglycerides 60 mg/dL; Very Low Density Lipoprotein 12 mg/dL (5-40)
== END | disposition home or self-care (01) ==
PROVIDERS: PCP Family Medicine Geriatric Medicine; Referring Provider Family Medicine Geriatric Medicine; Visit Provider Family Medicine Geriatric Medicine
DX: I10 Essential (primary) hypertension (principal); G30.9 Alzheimer's disease, unspecified; E55.9 Vitamin D deficiency, unspecified
CPT/HCPCS: 36415; 80053; 80061; 82306; 84443; 85025

== ENCOUNTER 2024-06-23 08:15 | Outpatient (CLI) | payer MEDICARE, OTHER, SELFPAY ==
[2024-06-23 08:59] LABS: Absolute Lymphocyte Count 1.17 X10^3/uL (0.83-4.51); Absolute Neutrophil Count 2.6 X10^3/uL (2.0-7.7); Basophil# 0.04 X10^3/uL; Basophil% 0.9 % (0-1); Eosinophil# 0.13 X10^3/uL; Hematocrit 41.9 % (40-54); Hemoglobin 13.5 g/dL (13.0-16.5); Lymphocyte # 1.17 X10^3/ul (0.83-4.51); Lymphocyte % 26.8 % (19-41); Mean Corp Hgb Conc 32.2 g/dL (32-36); Mean Corpuscular Hgb 28.2 pg (27.0-32.0); Mean Corpuscular Volume 87.5 fL (80-94); Mean Platelet Vol. 10.5 fl (6.2-12.0); Monocyte# 0.43 X10^3/uL; Monocyte% 9.9 % (0-10); NRBC Flagged by Analyzer 0 % (0-5); Neutrophil # 2.58 X10^3/uL (2.7-7.7); Neutrophil % 59.2 % (47-70); Platelet Count 110 K/mm3 (150-450); RBC Distribution Width CV 13.2 % (11.6-14.6); RBC Distribution Width SD 42.7 fl (35.1-43.9); Red Blood Count 4.79 M/mm3 (4.6-6.2); White Blood Count 4.4 K/mm3 (4.4-11.0)
[2024-06-23 10:40] LABS: AST(SGOT) 26 U/L (15-37); Alanine Aminotransfer ALT/SGPT 21 U/L (16-61); Albumin, Serum 3.2 g/dL (3.2-5.0); Alkaline Phosphatase 79 U/L (45-117); Bilirubin, Direct 0.24 mg/dL (0.00-0.30); Cholesterol 124 mg/dL (200); Globulin 2.7 g/dL (2.2-4.2); High Density Lipoprotein 75 mg/dL; Protein, Total 5.9 g/dL (6.4-8.2); Triglycerides 39 mg/dL; Very Low Density Lipoprotein 8 mg/dL (5-40)
== END 2024-06-23 23:59 | disposition home or self-care (01) ==
PROVIDERS: Internal Medicine Cardiovascular Disease; PCP Family Medicine Geriatric Medicine
DX: D69.6 Thrombocytopenia, unspecified (principal); E78.00 Pure hypercholesterolemia, unspecified
CPT/HCPCS: 36415; 80061; 80076; 85025

== ENCOUNTER → 2024-07-27 | Outpatient (CLI) | payer MEDICARE, OTHER, SELFPAY ==
[2024-07-27 09:03] LABS: Absolute Lymphocyte Count 1.05 X10^3/uL (0.83-4.51); Basophil# 0.03 X10^3/uL; Basophil% 0.6 % (0-1); Eosinophil# 0.18 X10^3/uL; Eosinophils% 3.8 % (0-5); Hematocrit 44.7 % (40-54); Hemoglobin 14.3 g/dL (13.0-16.5); Lymphocyte # 1.05 X10^3/ul (0.83-4.51); Lymphocyte % 22.4 % (19-41); Mean Corpuscular Hgb 27.9 pg (27.0-32.0); Mean Corpuscular Volume 87.1 fL (80-94); Mean Platelet Vol. 9.9 fl (6.2-12.0); Monocyte# 0.45 X10^3/uL; Monocyte% 9.6 % (0-10); NRBC Flagged by Analyzer 0 % (0-5); Neutrophil # 2.96 X10^3/uL (2.7-7.7); Neutrophil % 63.4 % (47-70); Platelet Count 132 K/mm3 (150-450); RBC Distribution Width CV 12.9 % (11.6-14.6); RBC Distribution Width SD 40.8 fl (35.1-43.9); Red Blood Count 5.13 M/mm3 (4.6-6.2); White Blood Count 4.7 K/mm3 (4.4-11.0)
== END | disposition home or self-care (01) ==
PROVIDERS: PCP Family Medicine Geriatric Medicine; Referring Provider Internal Medicine Rheumatology; Visit Provider Internal Medicine Rheumatology
DX: D69.6 Thrombocytopenia, unspecified (principal)
CPT/HCPCS: 36415; 85025

== ENCOUNTER → 2024-08-04 | Outpatient (CLI) | payer MEDICARE, OTHER, SELFPAY ==
--- NOTE | 2024-08-04 12:47 | VDUE_ITS ---
Reason For Study: SWELLING Right Proximal Left Proximal Right jugular vein is spontaneous, widely Left subclavian vein is spontaneous, widely patent, phasic, with no intraluminal patent, phasic, with no intraluminal echogenicity noted. echogenicity noted. Right subclavian vein is spontaneous, widely patent, phasic, with no intraluminal echogenicity noted. Right Lower Arm Right radial vein is compressible. Right ulnar vein is compressible. Right Arm Right axillary vein is spontaneous, patent, phasic, competent, compressible and demonstrates augmentation. Right brachial vein is compressible. Right cephalic vein is compressible. Right basilic vein is compressible. VL/Venous Duplex US, Unilateral Interpretation Summary Deep veins of the right upper extremity are patent and compressible segmentally . There is no evidence of deep vein thrombosis. Superficial veins of the right upper extremity are patent and compressible segm entally. There is no evidence of superficial vein thrombosis. Ordering Physician: Mike Aburto Chi Referring Physician: Mike Aburto Chi Performed By: Roberto Carpio RVT and Student ???
== END | disposition home or self-care (01) ==
LOC: CVS 12:46
PROVIDERS: PCP Family Medicine Geriatric Medicine; Referring Provider Family Medicine Geriatric Medicine; Visit Provider Family Medicine Geriatric Medicine
DX: R22.31 Localized swelling, mass and lump, right upper limb (principal)
CPT/HCPCS: 93971

== ENCOUNTER → 2024-08-23 | Outpatient (CLI) | payer MEDICARE, OTHER, SELFPAY ==
[2024-08-23 12:04] LABS: Absolute Lymphocyte Count 0.97 X10^3/uL (0.83-4.51); Absolute Neutrophil Count 4.6 X10^3/uL (2.0-7.7); Basophil# 0.03 X10^3/uL; Basophil% 0.5 % (0-1); Eosinophil# 0.25 X10^3/uL; Eosinophils% 3.9 % (0-5); Hemoglobin 14.3 g/dL (13.0-16.5); Lymphocyte # 0.97 X10^3/ul (0.83-4.51); Lymphocyte % 15.1 % (19-41); Mean Corp Hgb Conc 31.8 g/dL (32-36); Mean Corpuscular Hgb 27.7 pg (27.0-32.0); Mean Platelet Vol. 10.1 fl (6.2-12.0); Monocyte# 0.58 X10^3/uL; NRBC Flagged by Analyzer 0 % (0-5); Neutrophil # 4.58 X10^3/uL (2.7-7.7); Neutrophil % 71.2 % (47-70); Platelet Count 161 K/mm3 (150-450); RBC Distribution Width SD 41.4 fl (35.1-43.9); Red Blood Count 5.17 M/mm3 (4.6-6.2); White Blood Count 6.4 K/mm3 (4.4-11.0)
[2024-08-23 12:42] LABS: Vitamin D,25 Hydroxy 31.3 ng/mL
[2024-08-23 12:48] LABS: ALB/GLOB Ratio 1.3 RATIO (0.9-2.4); AST(SGOT) 31 U/L (15-37); Alanine Aminotransfer ALT/SGPT 29 U/L (16-61); Albumin, Serum 3.6 g/dL (3.2-5.0); Alkaline Phosphatase 92 U/L (45-117); Anion Gap 3 (5-15); BUN 17 mg/dL (7-18); BUN/Creat Ratio 15.6 RATIO (10-20); Chloride 108 mmol/L (98-107); Creatinine, Serum 1.09 mg/dL (0.70-1.30); EST Glomerular Filtration Rate 71 mL/min (>60); Est Glom Filt Rate - Afr Amer 86 mL/min (>60); Globulin 2.8 g/dL (2.2-4.2); Glucose 84 mg/dL (74-106); Potassium 4.3 mmol/L (3.5-5.1); Protein, Total 6.4 g/dL (6.4-8.2); Sodium Level 142 mmol/L (136-145)
== END | disposition home or self-care (01) ==
LOC: POLAB3 11:47
PROVIDERS: PCP Family Medicine Geriatric Medicine; Visit Provider Family Medicine Geriatric Medicine
DX: I10 Essential (primary) hypertension (principal); E55.9 Vitamin D deficiency, unspecified
CPT/HCPCS: 36415; 80053; 82306; 84443; 85025

== ENCOUNTER → 2024-09-03 | Outpatient (CLI) | payer MEDICARE, OTHER, SELFPAY ==
--- NOTE | 2024-09-03 15:48 | CT_ITS ---
EXAM: CT LUMBAR SPINE WITHOUT INTRAVENOUS CONTRAST CLINICAL INDICATION: ENCOUNTER FOR ASJUSTMAENT AND MANAGEMENT OF NUEROSTIMULATOR AND EVALUATION OF WIRES MAR SERIES TECHNIQUE: Helically acquired images were obtained of the lumbar spine without intravenous contrast. 2D reformats were reviewed. This CT exam was performed using one or more of the following dose reduction techniques: automated exposure control, adjustment of the mA and/or kV according to patient size, and/or use of iterative reconstruction technique. COMPARISON: CT abdomen and pelvis, 03/11/2023 FINDINGS: VERTEBRAE: Multilevel facet and endplate osteophytosis. [place] left lower thoracic and apex right lumbar spinal curvatures are present. Degenerative anterolisthesis, grade 1 at L4-L5. No fracture. No discrete lytic or blastic abnormality. DISCS/SPINAL CANAL/NEURAL FORAMINA: Mild to moderate multilevel lumbar spinal canal stenosis and [id number] multilevel lumbar neural foraminal narrowing, perhaps severe at L4-L5 and L5-S1. Multilevel intervertebral disc height loss. Scattered areas of vacuum disc phenomenon. VASCULATURE: Atherosclerosis. Visualized abdominal aorta is not dilated. LYMPH NODES: No significant abnormality. No retroperitoneal adenopathy. KIDNEYS AND URETERS: Bilateral nonobstructive nephrolithiasis. Right renal cyst for which no follow-up is indicated. TUBES, LINES AND DEVICES: Dorsal cord stimulator is present with leads entering the spinal canal at the T12-L1 interlaminar space. The leads terminate slightly staggered at the level of T7. OTHER FINDINGS: Mediastinal granulomas. CT/Spine Lumbar without Contrast IMPRESSION: 1. Multilevel degenerative changes. No acute osseous abnormalities. Degenerative anterolisthesis of L4 upon L5. 2. Dorsal cord stimulator is present with leads entering the spinal canal at the T12-L1 interlaminar space. The leads terminate slightly staggered at the level of T7. 3. [place] left lower thoracic and apex right lumbar spinal curvatures are present. 4. Bilateral nonobstructive nephrolithiasis. Electronically Signed: Peter Estrella DO at 11:41 EST ,
== END | disposition home or self-care (01) ==
LOC: CT 15:46
PROVIDERS: PCP Family Medicine Geriatric Medicine; Referring Provider Family Medicine Geriatric Medicine; Visit Provider Family Medicine Geriatric Medicine
DX: Z45.42 Encounter for adjustment and management of neurostimulator (principal)
CPT/HCPCS: 72131

== ENCOUNTER → 2024-10-05 | Outpatient (CLI) | payer MEDICARE, OTHER, SELFPAY ==
--- NOTE | 2024-10-05 18:54 | CT_ITS ---
INDICATION: mid-back pain, neuro deficit EXAMINATION: CT THORACIC SPINE - CT Spine Thoracic W/O Contrast Injection TECHNIQUE: Helically acquired images were obtained of the thoracic spine. 2D reformats were reviewed. A radiation dose optimization technique was used for this scan. IV Contrast dosage and agent: None. COMPARISON: None. FINDINGS: VERTEBRAE: No fracture. No discrete lytic or blastic abnormality observed. VERTEBRAL ALIGNMENT: 4 mm retrolisthesis L1 on L2, L2 on L3. There is preservation of the normal thoracic kyphosis. DISCS: Thoracic disc heights preserved. Loss of disc space height at L1-2. No critical stenosis. Stimulator leads present in the distal thoracic spinal canal posteriorly. VISUALIZED THORAX: No thoracic aortic aneurysm. Bilateral nonobstructing nephrolithiasis. CT/Spine Thoracic without Contras IMPRESSION: No significant thoracic stenosis or acute bony abnormality. 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 Electronically Signed: Haider Beatty MD at 0:43 EST ,
== END | disposition home or self-care (01) ==
PROVIDERS: PCP Family Medicine Geriatric Medicine; Referring Provider Physician Assistant Medical; Visit Provider Physician Assistant Medical
DX: M96.1 Postlaminectomy syndrome, not elsewhere classified (principal)
CPT/HCPCS: 72128

== ENCOUNTER → 2024-12-21 | Outpatient (CLI) | payer MEDICARE, OTHER, SELFPAY ==
[2024-12-21 11:01] LABS: AST(SGOT) 30 U/L (<=37); Alanine Aminotransfer ALT/SGPT 22 U/L (<=46); Albumin, Serum 3.8 g/dL (3.4-4.8); Alkaline Phosphatase 95 U/L (40-129); Bilirubin, Direct 0.28 mg/dL (0.00-0.30); Cholesterol 155 mg/dL (<=200); Globulin 2.2 g/dL (2.2-4.2); High Density Lipoprotein 74 mg/dL; Low Density Lipoprotein Calc. 69 mg/dL; Total Bilirubin 0.58 mg/dL (0.00-1.30); Triglycerides 57 mg/dL; Very Low Density Lipoprotein 11 mg/dL (5-40); cholesterol:hdl ratio screen 2.08
== END | disposition home or self-care (01) ==
LOC: LAB 08:58
PROVIDERS: PCP Family Medicine Geriatric Medicine; Referring Provider Physician Assistant Medical; Visit Provider Physician Assistant Medical
DX: E78.2 Mixed hyperlipidemia (principal)
CPT/HCPCS: 36415; 80061; 80076

== ENCOUNTER → 2025-03-14 | Outpatient (CLI) | payer MEDICARE, OTHER, SELFPAY ==
[2025-03-14 14:02] LABS: ALB/GLOB Ratio 1.8 RATIO (0.9-2.4); AST(SGOT) 32 U/L (<=37); Alanine Aminotransfer ALT/SGPT 25 U/L (<=46); Albumin, Serum 4.1 g/dL (3.4-4.8); Alkaline Phosphatase 107 U/L (40-129); Anion Gap 8 (5-15); BUN 20 mg/dL (4-19); Calcium,Total 9.2 mg/dL (7.6-11.0); Carbon Dioxide 27.6 mmol/L (21.0-32.0); Chloride 105 mmol/L (98-108); Creatinine, Serum 1.02 mg/dL (0.70-1.20); EST Glomerular Filtration Rate 78 (>60); Globulin 2.3 g/dL (2.2-4.2); Glucose 91 mg/dL (70-99); Potassium 4.5 mmol/L (3.3-5.1); Protein, Total 6.3 g/dL (5.9-8.4); Sodium Level 141 mmol/L (133-145); Total Bilirubin 0.61 mg/dL (0.00-1.30); Vitamin D,25 Hydroxy 21.9 ng/mL (30-100)
[2025-03-14 14:05] LABS: Absolute Lymphocyte Count 0.85 X10^3/uL (0.83-4.51); Absolute Neutrophil Count 4.9 X10^3/uL (2.0-7.7); Basophil# 0.02 X10^3/uL; Basophil% 0.3 % (0-1); Eosinophil# 0.08 X10^3/uL; Eosinophils% 1.3 % (0-5); Hematocrit 44.6 % (40-54); Hemoglobin 14.6 g/dL (13.0-16.5); Lymphocyte # 0.85 X10^3/ul (0.83-4.51); Lymphocyte % 13.5 % (19-41); Mean Corp Hgb Conc 32.7 g/dL (32-36); Mean Corpuscular Hgb 28.2 pg (27.0-32.0); Mean Corpuscular Volume 86.1 fL (80-94); Mean Platelet Vol. 10.8 fl (6.2-12.0); Monocyte# 0.43 X10^3/uL; Monocyte% 6.8 % (0-10); NRBC Flagged by Analyzer 0 % (0-5); Neutrophil # 4.89 X10^3/uL (2.7-7.7); Neutrophil % 77.8 % (47-70); Platelet Count 147 K/mm3 (150-450); RBC Distribution Width CV 13.1 % (11.6-14.6); RBC Distribution Width SD 40.9 fl (35.1-43.9); Red Blood Count 5.18 M/mm3 (4.6-6.2); White Blood Count 6.3 K/mm3 (4.4-11.0)
== END | disposition home or self-care (01) ==
LOC: LAB 12:06
PROVIDERS: PCP Family Medicine Geriatric Medicine; Referring Provider Family Medicine Geriatric Medicine; Visit Provider Family Medicine Geriatric Medicine
DX: I10 Essential (primary) hypertension (principal); E55.9 Vitamin D deficiency, unspecified
CPT/HCPCS: 36415; 80053; 82306; 84443; 85025

== ENCOUNTER → 2025-03-25 | Outpatient (CLI) | payer MEDICARE, OTHER, SELFPAY ==
--- NOTE | 2025-03-25 12:14 | CT_ITS ---
PROCEDURE: ABDOMEN/PELVIS WITHOUT CONT 03/25/2025 REASON FOR EXAM: R FLANK PAIN TECHNIQUE: Abdomen and pelvis CT without intravenous contrast. Noncontrast technique limits evaluation of the abdominal and pelvic viscera. Coronal and Sagittal reconstruction series were provided. One or more dose reduction techniques were used (e.g., Automated exposure control, adjustment of the mA and/or kV according to patient size, use of iterative reconstruction technique). Dose report: CTDI L volume: 9.67 mGy. DLP: 514.66 mGy. PATIENT PREPARATION: Per protocol ORAL CONTRAST TYPE: None. COMPARISON: Prior study dated March 11, 2023. FINDINGS: Lung bases: Minimal basilar atelectasis. Calcified granuloma in the posterior medial aspect of the left lower lobe. Coronary artery calcification. Liver: Normal size. No obvious mass. Gallbladder: Unremarkable Spleen: Borderline splenomegaly. Pancreas: Normal size. No surrounding inflammation. Stable 1.6 cm cyst in the region of the uncinate process of the pancreas. Adrenals: Unremarkable Kidneys: There is a nonobstructive 3.5 mm calculus in the midpole posterior aspect of the right kidney. No evidence of hydronephrosis. Punctate calcification in the posterior midpole calyx of the left kidney. Stable 1 cm cyst in the lower pole of the right kidney. Bladder: Diffusely thickened urinary bladder wall. Cystitis should be ruled out. Mild increased markings are seen in the surrounding peritoneal fat. Central prostatic calcification. Bowel: Colonic diverticulosis without diverticulitis. Appendix: Unremarkable Lymph nodes: Unremarkable. Vasculature: Mild diffuse atherosclerotic calcifications are noted. Peritoneum / Retroperitoneum: Unremarkable Bones: Stable anterior listhesis of L4 on L5. Degenerative changes of the lumbar spine. Spinal cord stimulator device is seen. CT/Abdomen/Pelvis without Cont IMPRESSION: Small bilateral nonobstructive intrarenal calculi more prominent on the right s billie. No evidence of ureteral obstruction at this time. Borderline splenomegaly. Stable right renal cyst. Diffuse thickening of the urinary bladder wall. Cystitis should be ruled out. OVERALL FINAL ASSESSMENT: . Reading Location: [facility]
--- OUTSIDE RECORDS SUMMARY | 2025-03-25 19:13 | XMS RPT_ITS | CCD ---
Author Organization [facility] Care Team Providers Care Clinical Dermatologist Name Role Phone Dr. Mike Aburto Chi Primary Care Provider Dr. Mike Aburto Chi Referring Provider FLAQUITO Rodrigues Attending Provider Dr. Arik Cade Emergency Provider Dr. Mitra Martinez Admit Provider Dr. Mitra Martinez Other Provider Dr. Von Park Attending Provider Unavailable Dr. Von Park Other Provider Unavailable Dr. Rogelio Preciado Attending Provider Dr. Peng Ballesteros Attending Provider Roof LOGISTICS TECHNICIAN, LOGISTICS TECHNICIAN-C Matthew Page Attending Provider Unavailable Primary Care Provider Mike Franklin MD, Chi Primary Care Provider SYSTEM, PROVIDER NOT IN Referring Unavaila ble MIKE ABURTO CHI Primary Care Unavailable SYSTEM, PROVIDER NOT IN Attending Unavaila ble SYSTEM, PROVIDER NOT IN Referring Unavaila ble SYSTEM, PROVIDER NOT IN Attending Unavaila ble MIKE ABURTO CHI Primary Care Unavailable SYSTEM, PROVIDER NOT IN Referring Unavaila ble SYSTEM, PROVIDER NOT IN Attending Unavaila ble LAMONTE, MIKE AFSHIN Primary Care Unavailable Dr. Mike Aburto MD, Chi Primary Care Provider Dr. Mike Aburto MD, Chi Attending Provider Dr. Mike Aburto MD, Chi Referring Provider Ahmet Frances PA-C Attending Provider Ahmet Frances PA-C Referring Provider Thomas CAMARENA, Dr. Morales Other Provider Cathleen Perez Attending Provider [phone] Cathleen Perez Referring Provider [phone] LAMONTE, MIKE CHI Primary Care Unavailable CHOPKO, ANDREW GASPARMYR Attending Unavail able WILBER BLAND Attending Unavailable LAMONTE, MIKE CHI Primary Care Unavailable TONI BOWEN Attending Unavailable LAMONTE, MIKE CHI Primary Care Unavailable LAMONTE, MIKE CHI Primary Care Unavailable ZULY GOOD Attending Unavailable FAIR, ROBBY THAKUR Attending Unavailable LAMONTE, MIKE CHI Primary Care Unavailable LAMONTE, MIKE CHI Primary Care Unavailable LAMONTE, MIKE CHI Primary Care Unavailable LAMONTE, MIKE CHI Referring Unavailable LAMONTE, MIKE CHI Admitting Unavailable AHMET FRANCES Attending Unavailable FAIR, ROBBY THAKUR Attending Unavailable LAMONTE, MIKE CHI Primary Care Unavailable LAMONTE, MIKE CHI Primary Care Unavailable CHOPKO, ANDREW GASPARMYR Attending Unavail able CHOPKO, ANDREW GASPARMYR Attending Unavail able CHOPKO, ANDREWTATI PEÑAODYMYR Admitting Unavail able LAMONTE, MIKE CHI Primary Care Unavailable LAMONTE, MIKE CHI Primary Care Unavailable FAIR, ROBBY THAKUR Attending Unavailable FAIR, ROBBY THAKUR Referring Unavailable LAMONTE, MIKE CHI Primary Care Unavailable FAIR, ROBBY THAKUR Attending Unavailable FAIR, ROBBY THAKUR Referring Unavailable CHOPKO, ANDREW GASPARMYR Attending Unavail able CHOPKO, ANDREWTATI GASPARMYR Referring Unavail able LAMONTE, MIKE CHI Primary Care Unavailable LAMONTE, MIKE CHI Primary Care Unavailable THRUSHKIKE Attending Unavailable CHOPKO, ANDREW WOLODYMYR Admitting Unavail able CHOPKO, ANDREW GASPARMYR Attending Unavail able LAMONTE, MIKE CHI Primary Care Unavailable CHOPKO, ANDREW PEÑAODYMYR Referring Unavail able THRUSH, KIKE JOSHI Attending Unavailable CHOPKO, ANDREW WOLODYMYR Admitting Unavail able LAMONTE, MIKE CHI Primary Care Unavailable CHOPKO, ANDREWTATI GASPARMYR Admitting Unavail able LAMONTE, MIKE CHI Primary Care Unavailable CHOPKO, ANDREW GASPARMYR Attending Unavail able Lamonte , Dr. Mike Underwood Primary Care Provider Dr. Mike Aburto MD, Chi Attending Provider Dr. Mike Aburto MD, Chi Referring Provider [phone] Rogelio Preciado Unavailable VON ZAMORA Attending Unavailable Lamonte, Mike Chi Primary Care Unavailable Lamonte, Mike Chi Primary Care Unavailable Lamonte, Mike Chi Attending Unavailable Lamonte, Mike Chi Referring Unavailable Cathleen Perez Attending Unavail able Cathleen Perez Referring Unavail able Lamonte, Mike Chi Primary Care Unavailable Andrew Guzman Consulting Unavailable Lamonte, Mike Chi Primary Care Unavailable Ahmet Frances Attending Unavailable Ahmet Frances Referring Unavailable Lamonte, Mike Chi Primary Care Unavailable Lamonte, Mike Chi Attending Unavailable Lamonte, Mike Chi Referring Unavailable Lamonte, Mike Chi Primary Care Unavailable Lamonte, Mike Chi Attending Unavailable Lamonte, Mike Chi Referring Unavailable Lamonte, Mike Chi Primary Care Unavailable Lamonte, Mike Chi Attending Unavailable Lamonte, Mike Chi Referring Unavailable Lamonte, Mike Chi Primary Care Unavailable Peng Ballesteros Attending Unavailable Lamonte, Mike Chi Referring Unavailable Lamonte, Mike Chi Primary Care Unavailable Lamonte, Mike Chi Attending Unavailable Lamonte, Mike Chi Referring Unavailable Lamonte, Mike Chi Primary Care Unavailable Lamonte, Mike Chi Attending Unavailable Lamonte, Mike Chi Primary Care Unavailable Chris Varma Attending Unavailable Chris Varma Referring Unavailable Allergies Allergy Classification Reported Allergen(s) Allergy Type Date of Onset Reaction(s) Facility (18 sources) Bee pollen; Translations: [BEE POLLEN] Drug Allergy 4 [facility] (1 source) Pollen; Translations: [POLLEN EXTRACTS] Propensity to adverse reactions to drug (disorder) 5 [facility] Repository Medications Current Medications Medication Drug Class(es) Dates Sig (Normalized) Sig (Original) acetaminophen 325 mg / oxyCODONE hydrochloride 5 mg oral tablet (17 sources) Opioid Agonist Start: 11-19-2024 End: 11-26-2024 take 1 tablet by mouth every six hours as needed oxyCODONE-acetami nophen (PERCOCET) 5-325 mg per tablet Indications: Acute post-operative pain Take 1 (one) tablet by mouth every 6 (six) hours as needed Causes drowsiness. . 28 tablet 11/19/2024 3:33 PM EST 11/19/2024 11/26/2024 Active Start: 11-18-2024 End: 11-19-2024 take 1-2 tablets by mouth every four hours as needed 1-2 tablet, Oral, Every 4 hours PRN, moderate to severe pain, Starting on Fabiola 11/18/24 at 1536, [] Initiate with 1 tablet oral every 4 hours prn moderate to severe pain. [] For unrelieved pain, may repeat one tablet oral dose within 60 minutes of initial dose. [] If pain is RELIEVED after repeat dose, change to two tablets of 5/325 mg oral every 4 hours prn moderate to severe pain. [] If pain is UNrelieved after repeat dose, or patient requires dose reduction, call physician. Start: 05-27-2020 End: 05-30-2020 Oxycodone-Acetaminophen 1 TA BLET tablet Discontinued 1 {tbl} PO EVERY 6 HOURS NEEDED as needed for Pain 12 May 27, 2020 May 29, 2020 12:00am May 30, 2020 12:02am Start: 05-27-2020 End: 05-30-2020 take 1 tablet by mouth every six hours as needed Oxycodone-Acetaminophen Discontinued 1 TABLET PO EVERY 6 HOURS NEEDED 12 May 27, 2020 May 29, 2020 11:02pm amLODIPine 5 mg oral tablet (20 sources) Dihydropyridine Calcium Channel Sita Start: 05-27-2020 End: 11-19-2024 take 1 tablet by mouth once daily Amlodipine 5 MG tablet Active 5 mg PO DAILY May 27, 2020 12:00am cyclobenzaprine hydrochloride 5 mg oral tablet (4 sources) Muscle Relaxant Start: 11-19-2024 End: 11-29-2024 take 1 tablet by mouth every eight hours as needed for muscle spasms cyclobenzaprine (FLEXERIL) 5 MG tablet Indications: Acute post-operative pain Take 1 (one) tablet (5 mg total) by mouth every 8 (eight) hours as needed for muscle spasms . 30 tablet 11/19/2024 3:33 PM EST 11/19/2024 11/29/2024 Active Start: 11-18-2024 End: 11-19-2024 take 1 tablet by mouth every eight hours as needed 5 mg, Oral, Every 8 hours PRN, muscle spasms, Starting on Fabiola 11/18/24 at 1536 hydroxychloroquine sulfate 200 mg oral tablet (11 sources) Antimalarial, Antirheumatic Agent take 1 tablet by mouth twice daily hydroxychloroquine (PLAQUENIL) 200 mg tablet Take 1 (one) tablet (200 mg total) by mouth 2 (two) times a day . Active meclizine hydrochloride 25 mg oral tablet (14 sources) Antiemetic Start : 11-02 End: 11-19 take 1 tablet by mouth four times daily as needed for dizziness Meclizine 25 mg tablet Active 25 mg PO 4 TIMES DAILY NEEDED as needed for Dizziness November 02, 2023 1:00am memantine hydrochloride 10 mg oral tablet (20 sources) M-luruob-M-aspartat e Receptor Antagonist Start : 10-27 End: 11-19 take 1 tablet by mouth twice daily Memantine 10 mg tablet Active 10 mg PO TWICE A DAY October 27, 2023 1:00am predniSONE 2 mg delayed release oral tablet (20 sources) Start : 09-28 take 1 tablet by mouth once daily in the morning predniSONE 2 mg TbEC Take 1 (one) tablet (2 mg total) by mouth every morning . 09/28/2020 Active Start: 09-28-2020 take 4 tablets by mo uth once daily predniSONE (DELTASONE) 1 MG tablet Take 4 (four) tablets (4 mg total) by mouth daily . 09/28/2020 Active Start: 05-27-2020 take 5 tablets by mo uth once daily Prednisone 1 MG tablet Active 5 mg PO DAILY May 27, 2020 12:00am Start: 05-27-2020 take 5 mg by mouth once daily Prednisone Active 5 MG PO DAILY May 26, 2020 11:00pm Start: 05-27-2020 take 4 mg by mouth once daily Prednisone Active 4 MG PO DAILY May 26, 2020 11:00pm Start: 05-27-2020 take 3 mg by mouth once daily Prednisone Active 3 MG PO DAILY May 27, 2020 12:00am rosuvastatin calcium 20 mg oral tablet (20 sources) HMG-CoA Reductase Inhibitor Start: 11-14-2023 End: 12-02-2024 take 1 tablet by mouth once daily Rosuvastatin 20 mg tablet Active 20 mg PO DAILY December 02, 2024 9:01am sulfamethoxazole 800 mg / trimethoprim 160 mg oral tablet (3 sources) Dihydrofolate Reductase Inhibitor Antibacterial, Sulfonamide Antimicrobial Start: 12-02-2024 End: 12-13-2024 take 1 tablet by mouth twice daily sulfamethoxazole-tr imethoprim (BACTRIM DS,SEPTRA DS) 800-160 mg per tablet Take 1 (one) tablet by mouth 2 (two) times a day for 5 days . 10 tablet 12/08/2024 12/13/2024 Active vitamin b12 1 mg oral capsule (14 sources) Vitamin B12 Start: 10-27-2023 take 1 capsule by mouth once daily Cyanocobalamin (Vitamin B-12) 1,000 mcg capsule Active 1000 ug PO DAILY October 27, 2023 1:00am End: 11-19-2024 cyanocobalamin (B-12) 1000 M CG tablet 0.5 (one-half) tablet (500 mcg total) every other day . 11/19/2024 Discontinued (Stop Taking at Discharge) Completed/Discontinued Medications Medication Drug Class(es) Dates Sig (Normalized) Sig (Original) acetaminophen 325 mg oral tablet (1 source) Start: 11-18-2024 End: 11-19-2024 take 1 tablet by mouth every four hours as needed for pain amoxicillin 500 mg oral capsule (9 sources) Penicillin-class Antibacterial Start: 08-13-2023 End: 08-23-2023 take 2 capsules by mouth twice daily Amoxicillin 500 mg capsule Discontinued 1000 mg PO TWICE A DAY 40 August 13, 2023 12:00am August 22, 2023 1:00am August 23, 2023 1:25am Start: 08-13-2023 End: 08-23-2023 take 1000 mg by mouth twice daily Amoxicillin Discontinued 1000 MG PO TWICE A DAY 40 August 12, 2023 11:00pm August 23, 2023 12:25am amoxicillin 500 mg / clavulanate 125 mg oral tablet (2 sources) Penicillin-class Antibacterial Start: 02-28-2024 End: 03-09-2024 Amoxicillin-Pot Clavulanate (Augmentin) 500-125 mg tablet Discontinued 1 {tbl} PO TWICE A DAY 20 February 28, 2024 12:00am March 08, 2024 12:00am March 09, 2024 12:04am 24 hr amphetamine aspartate 7.5 mg / amphetamine sulfate 7.5 mg / dextroamphetamine saccharate 7.5 mg / dextroamphetamine sulfate 7.5 mg extended release oral capsule (13 sources) Central Nervous System Stimulant Start: 05-27-2020 End: 11-02-2023 take 1 capsule by mouth once daily Dextroamphetamine -Amphetamine 30 MG capsule,extended release 24hr Discontinued 30 mg PO DAILY May 27, 2020 12:00am November 02, 2023 6:33am atorvastatin 10 mg oral tablet (1 source) HMG-CoA Reductase Inhibitor Start: 11-18-2024 End: 11-19-2024 take 10 mg by mouth once daily 10 mg, Oral, Nightly, First dose on Fabiola 11/18/24 at 2100 bisacodyl 10 mg rectal suppository (2 sources) Stimulant Laxative Start: 11-18-2024 End: 11-19-2024 take 10 mg rectal route every eight hours ceFAZolin 2000 mg injection (1 source) Cephalosporin Antibacterial Start: 11-18-2024 End: 11-19-2024 take 2000 mg intravenously every eight hours 2,000 mg, Intravenous, at 100 mL/hr, Every 8 hours, First dose on Fabiola 11/18/24 at 2000, For 2 doses, Starting 8 hours after pre-procedure dose x 2 doses., Indication (POST PROCEDURE): Neurology cephalexin 500 mg oral capsule (6 sources) Cephalosporin Antibacterial Start: 08-03-2024 End: 11-19-2024 take 1 capsule by mouth twice daily cephALEXin (KEFLEX) 500 MG capsule Take 1 (one) capsule (500 mg total) by mouth 2 (two) times a day . 08/03/2024 11/19/2024 Discontinued (Stop Taking at Discharge) cholecalciferol 0.025 mg oral capsule (8 sources) Vitamin D Start: 10-27-2023 End: 11-14-2023 take 1 capsule by mouth once daily Cholecalciferol (Vitamin D3) 25 mcg (1,000 unit) capsule Discontinued 25 ug PO DAILY October 27, 2023 1:00am November 14, 2023 12:07pm diphenhydrAMINE hydrochloride 25 mg oral tablet (1 source) Histamine-1 Receptor Antagonist Start: 11-18-2024 End: 11-19-2024 take 1 tablet by mouth every four hours as needed docusate sodium 50 mg / sennosides, alf 8.6 mg oral tablet (1 source) Start: 11-18-2024 End: 11-19-2024 take 2 tablets by mouth twice daily 2 tablet, Oral, 2 times daily, First dose on Fabiola 2/6/25 at 2100, [] Hold for loose stools. Do Not Crush or Chew if administering orally due to bitter taste. May be crushed if given via tube. donepezil hydrochloride 5 mg oral tablet (20 sources) Start: 11-19-2024 End: 11-19-2024 take 10 mg by mouth once daily in the morning 10 mg, Oral, Every morning, First dose on Fri11/19/24 at 0900 Start: 10-27-2023 take 1 tablet by herman at bedtime Donepezil 5 mg tablet Active 5 mg PO AT BEDTIME October 27, 2023 1:00am Start: 10-27-2023 End: 11-02-2023 take 1 tablet by mouth once daily Donepezil 10 mg tablet Discontinued 10 mg PO DAILY October 27, 2023 1:00am November 02, 2023 6:34am famotidine 20 mg oral tablet (20 sources) Histamine-2 Receptor Antagonist Start: 11-18-2024 End: 11-19-2024 Start: 04-04-2023 take 1 tablet by herman once daily Famotidine 40 mg tablet Active 40 mg PO DAILY October 27, 2023 1:00am 24 hr galantamine hydrobromide 8 mg extended release oral capsule (8 sources) Start: 10-27-2023 End: 11-02-2023 take 1 capsule by mouth once daily at breakfast Galantamine 8 mg capsule,ext rel. pellets 24 hr Discontinued 8 mg PO EVERY MORNING October 27, 2023 1:00am November 02, 2023 6:34am administer with breakfast 1 ml ketorolac tromethamine 30 mg/ml injection (1 source) Nonsteroidal Anti-inflammatory Drug, Cyclooxygenase Inhibitor Start: 11-19-2024 End: 11-19-2024 15 mg, Intravenous, Once, On Fri11/19/24 at 1015, For 1 dose Start: 11-19-2024 End: 11-19-2024 15 mg, Intravenous, Once, On Fri11/19/24 at 1015, For 1 dose magnesium hydroxide 80 mg/ml oral suspension (1 source) Start: 11-18-2024 End: 11-19-2024 1 ml morphine sulfate 2 mg/ml cartridge (1 source) Opioid Agonist Start: 11-18-2024 End: 11-19-2024 take 2-4 mg intravenously every three hours as needed naloxone (NARCAN) injection 0.1 mg (1 source) Start: 11-18-2024 End: 11-19-2024 naloxone (NARCAN) injection 0.1 mg 2 ml ondansetron 2 mg/ml injection (14 sources) Serotonin-3 Receptor Antagonist Start: 11-18-2024 End: 11-19-2024 take 4 mg intravenously every six hours as needed for nausea and vomiting Start: 05-27-2020 End: 04-29-2023 take 1 tablet by mouth every eight hours as needed for nausea Ondansetron 4 MG tablet Discontinued 4 mg PO EVERY 8 HOURS NEEDED as needed for Nausea May 27, 2020 12:00am April 29, 2023 8:58am 1000 ml sodium chloride 9 mg/ml injection (1 source) Start: 11-18-2024 End: 11-19-2024 take 50 mL intravenously every hour 50 mL/hr, Intravenous, Continuous, Starting on Fri11/18/24 at 1630 tamsulosin hydrochloride 0.4 mg oral capsule (20 sources) alpha-Adrener gic Sita Start: 10-27-2023 End: 11-02-2023 take 1 capsule by mouth once daily Tamsulosin 0.4 mg capsule Discontinued 0.4 mg PO DAILY October 27, 2023 1:00am November 02, 2023 6:32am Start: 05-27-2020 End: 04-29-2023 take 1 capsule by mouth once daily Tamsulosin 0.4 MG capsule Discontinued 0.4 mg PO DAILY May 27, 2020 12:00am April 29, 2023 8:58am traZODone hydrochloride 50 m g oral tablet (1 source) Serotonin Reuptake Inhibitor Start: 11-18-2024 End: 11-19-2024 Problems Active Problems Problem Classification Problem Date Documented Da te Episodic/Chronic Abdominal hernia (19 sources) Hiatal hernia; Translations: [Diaphragmatic hernia without obstruction or gangrene] 04-29-2023 Episodic Bacterial infection; unspecified site (8 sources) Rheumatic fever; Translations: [Rheumatic fever without heart involvement] 11-14-2023 Episodic Comment on above: The patient was diag nosed at age 4 with rheumatic fever. He feels that his hearing loss may be related to this as well as occupational exposure and of family history of hearing loss later in life. I do not auscultate any murmurs and the patient is asymptomatic and aerobically active. At this point, do not feel that further evaluation is indicated from a cardiovascular standpoint. The patient reports that he had a transient murmur at age 4 that resolved spontaneously and has not been documented since. EKG in office today shows a normal sinus rhythm and is normal. Chronic ulcer of skin (14 sources) Chronic non-pressure ulcer of calf extending to fat level; Translations: [Non-pressure chronic ulcer of right calf with fat layer exposed] 05-27-2023 Chronic Coagulation and hemorrhagic disorders (1 source) Thrombocytopenia, unspecified; Translations: [Thrombocytopenia, unspecified] Onset: Chronic Complication of device; implant or graft (20 sources) Mechanical complication of nervous system device; Translations: [Other mechanical complication of implanted electronic neurostimulator of spinal cord electrode (lead), initial encounter] Onset: 4 10-08-2024 Episodic Conditions associated with dizziness or vertigo (14 sources) Vertigo; Translations: [Dizziness and giddiness] 11-02-2023 Episodic Delirium, dementia, and amnestic and other cognitive disorders (20 sources) Alzheimer's disease; Translations: [Alzheimer's disease, unspecified] Onset: 5 04-29-2023 Chronic Disorders of lipid metabolism (20 sources) Hyperlipidemia; Translations: [Hyperlipidemia, unspecified] Onset: 5 04-29-2023 Chronic Comment on above: The patient has a hi story of recent blood work in August 2023. Total cholesterol was 207 HDL 54 triglycerides 132 LDL 126 non-HDL 153. The patient is on no medical regiment he does have a history of vascular calcifications which would indicate atherosclerotic disease. The patient's liver functions test are within normal limits Esophageal disorders (20 sources) Gastroesophageal reflux disease; Translations: [Gastro-esophageal reflux disease without esophagitis] Onset: 5 04-29-2023 Chronic Essential hypertension (20 sources) Hypertensive disorder; Translations: [Essential (primary) hypertension] Onset: 5 04-29-2023 Chronic Nausea and vomiting (14 sources) Nausea and vomiting; Translations: [Nausea with vomiting, unspecified] 11-02-2023 Episodic Occlusion or stenosis of precerebral arteries (8 sources) Vascular calcification; Translations: [Occlusion and stenosis of unspecified carotid artery] 11-14-2023 Chronic Comment on above: There is noted calci fication in the right carotid artery on CT scan. I did not auscultate a bruit but I do feel that further evaluation is indicated Open wounds of extremities (19 sources) Open wound of right lower leg; Translations: [Unspecified open wound, right lower leg, initial encounter] 05-06-2023 Episodic Other acquired deformities (1 source) Scoliosis of lumbar spine; Translations: [Scoliosis, unspecified] 10-08-2024 Chronic Other acquired deformities (12 sources) Scoliosis deformity of spine; Translations: [Scoliosis, unspecified] Onset: 4 10-08-2024 Chronic Other connective tissue disease (20 sources) Polymyalgia rheumatica; Translations: [Polymyalgia rheumatica] Onset: 4 04-29-2023 Chronic Other connective tissue disease (12 sources) History of total knee arthroplasty; Translations: [Presence of artificial knee joint, bilateral] 04-29-2023 Chronic Other connective tissue disease (7 sources) Presence of artificial knee joint, bilateral; Translations: [Knee joint replacement] 05-12-2023 Chronic Other connective tissue disease (13 sources) Polymyalgia rheumatica; Translations: [Polymyalgia rheumatica] 05-12-2023 Chronic Other ear and sense organ disorders (12 sources) Hearing loss; Translations: [Unspecified hearing loss, unspecified ear] 04-29-2023 Chronic Other ear and sense organ disorders (7 sources) Unspecified hearing loss, unspecified ear; Translations: [Unspecified hearing loss] 05-12-2023 Chronic Other ear and sense organ disorders (9 sources) Cochlear prosthesis in situ; Translations: [Cochlear implant status] 08-13-2023 Chronic Other ear and sense organ disorders (8 sources) Hereditary hearing loss; Translations: [Unspecified hearing loss, unspecified ear] 10-27-2023 Chronic Other ear and sense organ disorders (8 sources) Sensorineural hearing loss, bilateral; Translations: [Sensorineural hearing loss, bilateral] 10-27-2023 Chronic Other gastrointestinal disorders (12 sources) Dysphagia; Translations: [Dysphagia, unspecified] 04-29-2023 Episodic Other gastrointestinal disorders (7 sources) Dysphagia, unspecified; Translations: [Dysphagia, unspecified] 05-12-2023 Episodic Other hereditary and degenerative nervous system conditions (12 sources) Impaired cognition; Translations: [Mild cognitive impairment, so stated] 04-29-2023 Chronic Other hereditary and degenerative nervous system conditions (13 sources) Mild cognitive impairment, so stated; Translations: [Mild cognitive impairment, so stated] 05-12-2023 Chronic Other inflammatory condition of skin (1 source) Erythema; Translations: [Erythematous condition, unspecified] 12-08-2024 Episodic Other lower respiratory disease (19 sources) Chronic cough; Translations: [Chronic cough] 04-29-2023 Episodic Other nervous system disorders (2 sources) Post-surgery back pain 09-30-2024 Episodic Other nervous system disorders (2 sources) Acute postoperative pain; Translations: [Other acute postprocedural pain] 11-19-2024 Episodic Other upper respiratory infections (16 sources) Acute maxillary sinusitis; Translations: [Acute maxillary sinusitis, unspecified] 08-13-2023 Episodic Pancreatic disorders (not diabetes) (20 sources) Cyst of pancreas; Translations: [Cyst of pancreas] Onset: 04-29-2023 Episodic Pneumonia (except that caused by tuberculosis or sexually transmitted disease) (2 sources) Pneumonia; Translations: [Pneumonia, unspecified organism] 02-28-2024 Episodic Residual codes; unclassified (12 sources) Sleep apnea; Translations: [Sleep apnea, unspecified] 04-29-2023 Chronic Residual codes; unclassified (13 sources) Sleep apnea, unspecified; Translations: [Obstructive sleep apnea (adult)(pediatric)] 05-12-2023 Chronic Residual codes; unclassified (11 sources) Obstructive sleep apnea syndrome; Translations: [Obstructive sleep apnea (adult) (pediatric)] Onset: 10-28-2024 Chronic Residual codes; unclassified (1 source) H/O Spinal surgery; Translations: [Presence of other specified functional implants] 01-05-2025 Chronic Residual codes; unclassified (2 sources) Presence of other specified functional implants; Translations: [Presence of other specified functional implants] Onset: Chronic Residual codes; unclassified (2 sources) Obstructive sleep apnea (adult) (pediatric); Translations: [Obstructive sleep apnea (adult) (pediatric)] Onset: Chronic Residual codes; unclassified (19 sources) Presence of neurostimulator; Translations: [Peripheral nerve neurostimulator device in situ] 04-29-2023 Episodic Residual codes; unclassified (2 sources) History of operative procedure on lumbar spinal structure; Translations: [Other specified postprocedural states] 12-08-2024 Episodic Residual codes; unclassified (2 sources) Other specified postprocedural states; Translations: [Other specified postprocedural states] Onset: Episodic Spondylosis; intervertebral disc disorders; other back problems (20 sources) Post-surgery back pain; Translations: [Postlaminectomy syndrome, not elsewhere classified] Onset: 4 09-30-2024 Chronic Spondylosis; intervertebral disc disorders; other back problems (20 sources) Spinal stenosis of lumbar region; Translations: [Spinal stenosis, lumbar region without neurogenic claudication] Onset: 5 04-29-2023 Episodic Past or Other Problems Problem Classification Problem Date Documented Date Episodic/Chronic Other nervous system disorders (2 sources) Other acute postprocedural pain; Translations: [Other acute postprocedural pain] Onset: 11-18-2024 Episodic Other skin disorders (1 source) Localized swelling, mass and lump, right upper limb; Translations: [Localized swelling, mass and lump, right upper limb] Onset: 08-26-2024 Episodic Rehabilitation care; fitting of prostheses; and adjustment of devices (2 sources) Patient encounter status; Translations: [Encounter for adjustment and management of neurostimulator] Onset: 10-02-2024 09-13-2024 Episodic Unclassified (1 source) Patient encounter status 09-13-2024 Results Test Name Value Interpretation Reference Range Facility Absolute lymphocyte countOrd ered By: Mike Aburto on 03-14-2025 Lymphocytes Auto (Unsp spec) [#/Vol] 0.85 10*3/uL 0.83-4.51 [facility] Absolute neutrophil countOrd ered By: Mike Aburto on 03-14-2025 Neutrophils (Bld) [#/Vol] 4.9 10*3/uL 2.0-7.7 [facility] Anion gap in Serum or Plasma Ordered By: Mike Lamonte on 03-14-2025 Anion gap [Moles/Vol] 8 mmol/L 5-15 [facility] Automated lymphocyte count a s percentage of total leukocytesOrdered By: Mike Aburto on 03-14-2025 Lymphocytes/100 WBC Auto (Unsp spec) 13.5 % Low 19-41 [facility] BUN/creatinine ratioOrdered By: Mike Lamonte on 03-14-2025 Urea nitrogen/Creatinine [Mass ratio] 20.0 mg/mg 10-20 [facility] Basophil percentageOrdered B y: Mike Lamonte on 03-14-2025 Basophils/100 WBC (Bld) 0.3 % 0-1 [facility] Bilirubin, totalOrdered By: Mike Lamonte on 03-14-2025 Bilirubin [Mass/Vol] 0.61 mg/dL 0.00-1.30 [facility] CBC W/Diff, Automatedon Absolute Lymph 0.85 X10 3/uL Normal 0.83-4.51 [facility] Comment on above: Performed By: #### L 500.4050, L501.9520, L506.1001, L100.0100 #### [facility] Laboratory [address] [place], [address] Absolute Neut 4.9 X10 3/uL Normal 2.0-7.7 [facility] Comment on above: Performed By: #### L 500.4050, L501.9520, L506.1001, L100.0100 #### [facility] Laboratory [address] [place], [address] Basophils/100 WBC (Bld) 0.3 % Normal 0-1 [facility] Comment on above: Performed By: #### L 500.4050, L501.9520, L506.1001, L100.0100 #### [facility] Laboratory [address] [place], [address] Eosinophils/100 WBC (Bld) 1.3 % Normal 0-5 [facility] Comment on above: Performed By: #### L 500.4050, L501.9520, L506.1001, L100.0100 #### [facility] Laboratory [address] [place], [address] Erythrocyte distribution width (RBC) [Ratio] 13.1 % Normal 11.6-14.6 [facility] Comment on above: Performed By: #### L 500.4050, L501.9520, L506.1001, L100.0100 #### [facility] Laboratory [address] [place], [address] Hematocrit (Bld) [Volume fraction] 44.6 % Normal 40-54 [facility] Comment on above: Performed By: #### L 500.4050, L501.9520, L506.1001, L100.0100 #### [facility] Laboratory [address] [place], [address] Hemoglobin (Bld) [Mass/Vol] 14.6 g/dL Normal 13.0-16.5 [facility] Comment on above: Performed By: #### L 500.4050, L501.9520, L506.1001, L100.0100 #### [facility] Laboratory [address] [place], [address] IG% 0.300 Normal 0.0-0.9 [facility] Comment on above: Result Comment: IG% - Immature Granulocytes (promyelocytes, myelocytes and metamyelocytes) > 1% indicates that a LEFT SHIFT is Present. Performed By: #### L 500.4050, L501.9520, L506.1001, L100.0100 #### [facility] Laboratory [address] [place], [address] Lymphocytes/100 WBC (Bld) 13.5 % Low 19-41 [facility] Comment on above: Performed By: #### L 500.4050, L501.9520, L506.1001, L100.0100 #### [facility] Laboratory [address] [place], [address] MCH (RBC) [Entitic mass] 28.2 pg Normal 27.0-32.0 [facility] Comment on above: Performed By: #### L 500.4050, L501.9520, L506.1001, L100.0100 #### [facility] Laboratory [address] [place], [address] MCHC (RBC) [Mass/Vol] 32.7 g/dL Normal 32-36 [facility] Comment on above: Performed By: #### L 500.4050, L501.9520, L506.1001, L100.0100 #### [facility] Laboratory [address] [place], [address] MCV (RBC) [Entitic vol] 86.1 fL Normal 80-94 [facility] Comment on above: Performed By: #### L 500.4050, L501.9520, L506.1001, L100.0100 #### [facility] Laboratory [address] [place], [address] Monocytes/100 WBC (Bld) 6.8 % Normal 0-10 [facility] Comment on above: Performed By: #### L 500.4050, L501.9520, L506.1001, L100.0100 #### [facility] Laboratory [address] [place], [address] Neutrophils/100 WBC (Bld) 77.8 % High 47-70 [facility] Comment on above: Performed By: #### L 500.4050, L501.9520, L506.1001, L100.0100 #### [facility] Laboratory [address] [place], [address] Nucleated RBC (Bld) [#/Vol] 0 10*3/uL Normal 0-5 [facility] Comment on above: Performed By: #### L 500.4050, L501.9520, L506.1001, L100.0100 #### [facility] Laboratory [address] [place], [address] Platelet mean volume (Bld) [Entitic vol] 10.8 fL Normal 6.2-12.0 [facility] Comment on above: Performed By: #### L 500.4050, L501.9520, L506.1001, L100.0100 #### [facility] Laboratory [address] [place], [address] Platelets (Bld) [#/Vol] 147 10*3/uL Low 150-450 [facility] Comment on above: Performed By: #### L 500.4050, L501.9520, L506.1001, L100.0100 #### [facility] Laboratory [address] [place], [address] RBC (Bld) [#/Vol] 5.18 10*6/uL Normal 4.6-6.2 [facility] Comment on above: Performed By: #### L 500.4050, L501.9520, L506.1001, L100.0100 #### [facility] Laboratory [address] [place], [address] RDW SD 40.9 fl Normal 35.1-43.9 [facility] Comment on above: Performed By: #### L 500.4050, L501.9520, L506.1001, L100.0100 #### [facility] Laboratory [address] [place], [address] WBC (Bld) [#/Vol] 6.3 10*3/uL Normal 4.4-11.0 [facility] Comment on above: Performed By: #### L 500.4050, L501.9520, L506.1001, L100.0100 #### [facility] Laboratory [address] [place], [address] Carbon dioxide, total [Moles /volume] in Central venous bloodOrdered By: Mike Aburto on 03-14-2025 CO2 [Moles/Vol] 27.6 mmol/L 21.0-32.0 [facility] Chloride assayOrdered By: Joseph Aburto on 03-14-2025 Chloride [Moles/Vol] 105 mmol/L 98-108 [facility] Comprehensive Metabolic Prof ilon 03-14-2025 Albumin [Mass/Vol] 4.1 g/dL Normal 3.4-4.8 [facility] Comment on above: Performed By: #### L 500.4050, L501.9520, L506.1001, L100.0100 #### [facility] Laboratory [address] [place], [address] Albumin/Globulin [Mass ratio] 1.8 {ratio} Normal 0.9-2.4 [facility] Comment on above: Performed By: #### L 500.4050, L501.9520, L506.1001, L100.0100 #### [facility] Laboratory [address] [place], [address] ALK PHOS 107 U/L Normal 40-129 [facility] Comment on above: Performed By: #### L 500.4050, L501.9520, L506.1001, L100.0100 #### [facility] Laboratory [address] [place], [address] ALT [Catalytic activity/Vol] 25 U/L Normal <=46 [facility] Comment on above: Performed By: #### L 500.4050, L501.9520, L506.1001, L100.0100 #### [facility] Laboratory [address] [place], [address] AST [Catalytic activity/Vol] 32 U/L Normal <=37 [facility] Comment on above: Performed By: #### L 500.4050, L501.9520, L506.1001, L100.0100 #### [facility] Laboratory [address] [place], [address] Bilirubin [Mass/Vol] 0.61 mg/dL Normal 0.00-1.30 [facility] Comment on above: Performed By: #### L 500.4050, L501.9520, L506.1001, L100.0100 #### [facility] Laboratory [address] [place], [address] BUN/CRE 20.0 RATIO Normal 10-20 [facility] Comment on above: Performed By: #### L 500.4050, L501.9520, L506.1001, L100.0100 #### [facility] Laboratory [address] [place], [address] Calcium [Mass/Vol] 9.2 mg/dL Normal 7.6-11.0 [facility] Comment on above: Performed By: #### L 500.4050, L501.9520, L506.1001, L100.0100 #### [facility] Laboratory [address] [place], [address] Chloride [Moles/Vol] 105 mmol/L Normal 98-108 [facility] Comment on above: Performed By: #### L 500.4050, L501.9520, L506.1001, L100.0100 #### [facility] Laboratory [address] [place], [address] CO2 [Moles/Vol] 27.6 mmol/L Normal 21.0-32.0 [facility] Comment on above: Performed By: #### L 500.4050, L501.9520, L506.1001, L100.0100 #### [facility] Laboratory [address] [place], [address] Creatinine [Mass/Vol] 1.02 mg/dL Normal 0.70-1.20 [facility] Comment on above: Performed By: #### L 500.4050, L501.9520, L506.1001, L100.0100 #### [facility] Laboratory [address] [place], [address] GAP 8 Normal 5-15 [facility] Comment on above: Performed By: #### L 500.4050, L501.9520, L506.1001, L100.0100 #### [facility] Laboratory [address] [place], [address] GFR/1.73 sq M.predicted among non-blacks MDRD (S/P/Bld) [Vol rate/Area] 78 mL/min/{1.73_m2} Normal >60 [facility] Comment on above: Result Comment: mL/m in/1.73m2 CKD-EPI Creatinine Equation (2020) Performed By: #### L 500.4050, L501.9520, L506.1001, L100.0100 #### [facility] Laboratory [address] [place], [address] Globulin (S) [Mass/Vol] 2.3 g/dL Normal 2.2-4.2 [facility] Comment on above: Performed By: #### L 500.4050, L501.9520, L506.1001, L100.0100 #### [facility] Laboratory [address] [place], [address] Glucose [Mass/Vol] 91 mg/dL Normal 70-99 [facility] Comment on above: Performed By: #### L 500.4050, L501.9520, L506.1001, L100.0100 #### [facility] Laboratory [address] [place], [address] Potassium [Moles/Vol] 4.5 mmol/L Normal 3.3-5.1 [facility] Comment on above: Performed By: #### L 500.4050, L501.9520, L506.1001, L100.0100 #### [facility] Laboratory [address] [place], [address] Sodium [Moles/Vol] 141 mmol/L Normal 133-145 [facility] Comment on above: Performed By: #### L 500.4050, L501.9520, L506.1001, L100.0100 #### [facility] Laboratory [address] [place], [address] T PROT 6.3 g/dL Normal 5.9-8.4 [facility] Comment on above: Performed By: #### L 500.4050, L501.9520, L506.1001, L100.0100 #### [facility] Laboratory [address] [place], [address] Urea nitrogen [Mass/Vol] 20 mg/dL High 4-19 [facility] Comment on above: Performed By: #### L 500.4050, L501.9520, L506.1001, L100.0100 #### [facility] Laboratory [address] [place], [address] Eosinophil percentageOrdered By: Mike Aburto on 03-14-2025 Eosinophils/100 WBC (Bld) 1.3 % 0-5 [facility] Erythrocyte distribution wid th ratioOrdered By: Mike Aburto on 03-14-2025 Erythrocyte distribution width (RBC) [Ratio] 13.1 % 11.6-14.6 [facility] Erythrocyte distribution wid th standard deviationOrdered By: Mike Aburto on 03-14-2025 Erythrocyte distribution width (RBC) [Ratio] 40.9 fl 35.1-43.9 [facility] Glomerular filtration rate ( GFR) estimation/1.73 sq m using serum, plasma, or whole bOrdered By: Mike Aburto on 03-14-2025 GFR/1.73 sq M.predicted among non-blacks MDRD (S/P/Bld) [Vol rate/Area] 78 mL/min/{1.73_m2} >60 [facility] Comment on above: mL/min/1.73m2 CKD-EP I Creatinine Equation (2020) Hematocrit Auto (Bld) [Volum e fraction]Ordered By: Mike Aburto on 03-14-2025 Hematocrit (Bld) [Volume fraction] 44.6 % 40-54 [facility] Hemoglobin measurementOrdere d By: Mike Aburto on 03-14-2025 Hemoglobin (Bld) [Mass/Vol] 14.6 g/dL 13.0-16.5 [facility] Immature granulocytes/100 WB C Auto (Bld)Ordered By: Mike Aburto on 03-14-2025 Immature granulocytes/100 WBC (Bld) 0.300 % 0.0-0.9 [facility] Comment on above: IG% - Immature Granu locytes (promyelocytes, myelocytes and metamyelocytes) > 1% indicates that a LEFT SHIFT is Present. Laboratory - Chemistry and C hemistry - challengeOrdered By: Mike Aburto on 03-14-2025 AST [Catalytic activity/Vol] 32 U/L <38 [facility] MCV (mean corpuscular volume ) determinationOrdered By: Mike Aburto 03-14-2025 MCV (RBC) [Entitic vol] 86.1 fL 80-94 [facility] Mean corpuscular hemoglobin (MCH) determinationOrdered By: Mike Aburto 03-14-2025 MCH (RBC) [Entitic mass] 28.2 pg 27.0-32.0 [facility] Mean corpuscular hemoglobin concentration (MCHC) determinationOrdered By: Mike Aburto 03-14-2025 MCHC (RBC) [Mass/Vol] 32.7 g/dL 32-36 [facility] Mean platelet volume determi nationOrdered By: Mike Aburto 03-14-2025 Platelet mean volume (Bld) [Entitic vol] 10.8 fL 6.2-12.0 [facility] Monocyte percentageOrdered B y: Mike Aburto on 03-14-2025 Monocytes/100 WBC (Bld) 6.8 % 0-10 [facility] Neutrophil percentageOrdered By: Mike Aburto 03-14-2025 Neutrophils/100 WBC (Bld) 77.8 % High 47-70 [facility] Nucleated red blood cell per centageOrdered By: Mike Aburto on 03-14-2025 Nucleated RBC/100 WBC (Bld) [Ratio] 0 % 0-5 [facility] Platelet countOrdered By: Joseph Aburto on 03-14-2025 Platelets (Bld) [#/Vol] 147 10*3/uL Low 150-450 [facility] Potassium measurement (mass/ volume)Ordered By: Mike Aburto on 03-14-2025 Potassium (Unsp spec) [Mass/Vol] 4.5 mmol/L 3.3-5.1 [facility] RBC Auto (Bld) [#/Vol]Ordere d By: Mike Aburto on 03-14-2025 RBC (Bld) [#/Vol] 5.18 10*6/uL 4.6-6.2 [facility] Serum creatinine measurement (mass/volume)Ordered By: Mike Aburto on 03-14-2025 Creatinine [Mass/Vol] 1.02 mg/dL 0.70-1.20 [facility] Serum globulin measurementOr dered By: Mike Aburto on 03-14-2025 Globulin (S) [Mass/Vol] 2.3 g/dL 2.2-4.2 [facility] Serum glucose measurement (m ass/volume)Ordered By: Mike Aburto 03-14-2025 Glucose [Mass/Vol] 91 mg/dL 70-99 [facility] Serum or plasma alanine rios otransferase (ALT) measurementOrdered By: Mike Aburto 03-14-2025 ALT [Catalytic activity/Vol] 25 U/L <47 [facility] Serum or plasma albumin mamie urement (mass/volume)Ordered By: Mike Aburto on 03-14-2025 Albumin [Mass/Vol] 4.1 g/dL 3.4-4.8 [facility] Serum or plasma albumin/glob ulin mass ratioOrdered By: Mike Aburto 03-14-2025 Albumin/Globulin [Mass ratio] 1.8 {ratio} 0.9-2.4 [facility] Serum or plasma alkaline ruddy sphatase measurementOrdered By: Mike Aburto 03-14-2025 ALP [Catalytic activity/Vol] 107 U/L 40-129 [facility] Serum or plasma calcium mamie urement (mass/volume)Ordered By: Mike Aburto on 03-14-2025 Calcium [Mass/Vol] 9.2 mg/dL 7.6-11.0 [facility] Serum or plasma urea nitroge n measurement (mass/volume)Ordered By: Mike Aburto on 03-14-2025 Urea nitrogen [Mass/Vol] 20 mg/dL High 4-19 [facility] Sodium levelOrdered By: Mike Aburto on 03-14-2025 Sodium [Moles/Vol] 141 mmol/L 133-145 [facility] TSH DL <= 0.005 mIU/L QnOrde red By: Mike Aburto on 03-14-2025 TSH Qn 1.040 uIU/mL 0.300-4.20 0 [facility] Thyroid Stim Hormone (TSH)on 03-14-2025 TSH 1.040 uIU/mL Normal 0.300-4.20 0 [facility] Comment on above: Performed By: #### L 500.4100, L500.3400 #### [facility] [address] [place], [place], [id number] Total proteinOrdered By: Mike Aburto on 03-14-2025 Protein [Mass/Vol] 6.3 g/dL 5.9-8.4 [facility] Vitamin D,25 Hydroxyon 03-14 Vitamin D 25-OH 21.9 ng/mL Low 30-100 [facility] Comment on above: Result Comment: Felecia min D Status Deficiency: <20 ng/mL (50nmol/L) Insufficiency: 20-30 ng/mL (50-75 nmol/L) Sufficiency: 30-100 ng/mL (75-250 nmol/L) Toxicity: >100 ng/mL (>250 nmol/L) Performed By: #### L 500.4100, L500.3400 #### [facility] Laboratory [address] [place], [place], [id number] White blood cell (WBC) count Ordered By: Mike Aburto on 03-14-2025 WBC (Bld) [#/Vol] 6.3 10*3/uL 4.4-11.0 [facility] PT/INRon 05-13-2025 INR Coag (PPP) [Relative time] 1.0 {INR} Normal 0.8-1.1 [facility] Comment on above: Order Comment: Zach ferrara the induction phase of oral anticoagulation, the INR may not reflect the anticoagulation status of the patient. Therapeutic ranges for INR's are: Most clinical situations: INR 2.0-3.0 Mechanical Prosthetic Valve: INR 2.5-3.5 Critical: INR >5.0 Performed By: #### 4 [id number] #### [facility] [address] [place], [place] [address] Jeffrey Kohli M.D. [id number] PT Coag (PPP) [Time] 13.1 s Normal 11.8-14.3 [facility] Comment on above: Order Comment: Zach ferrara the induction phase of oral anticoagulation, the INR may not reflect the anticoagulation status of the patient. Therapeutic ranges for INR's are: Most clinical situations: INR 2.0-3.0 Mechanical Prosthetic Valve: INR 2.5-3.5 Critical: INR >5.0 Performed By: #### 4 6391 #### [facility] [address] [place], [place] [address] Jeffrey Kohli M.D. [id number] TYPE AND SCREENon 02-22-2025 TYPE AND SCREEN ABORH: O Positive AB SCREEN: Negative EXPIRATION DATE: 02/25/2025 23:59 EST Normal [facility] BASIC METABOLIC PANELon 05 Anion gap [Moles/Vol] 11 mmol/L Normal 10-20 [facility] Comment on above: Order Comment: [facility] has implemented the eGFR calculation approach that does not have a coefficient for race that conforms to the NKF-ASN Task Force Recommendations. Performed By: #### 4 [id number] #### [facility] [address] [place], [place] [address] Jeffrey Kohli M.D. [id number] Calcium [Mass/Vol] 8.8 mg/dL Normal 8.4-10.2 [facility] Comment on above: Order Comment: [facility] has implemented the eGFR calculation approach that does not have a coefficient for race that conforms to the NKF-ASN Task Force Recommendations. Performed By: #### 4 [id number] #### [facility] [address] [place] [id number] Jeffrey Kohli M.D. [id number] Chloride [Moles/Vol] 105 mmol/L Normal 98-108 [facility] Comment on above: Order Comment: [facility] has implemented the eGFR calculation approach that does not have a coefficient for race that conforms to the NKF-ASN Task Force Recommendations. Performed By: #### 4 [id number] #### [facility] [address] [place] [address] Jeffrey Kohli M.D. [id number] Creatinine [Mass/Vol] 0.99 mg/dL Normal 0.80-1.30 [facility] Comment on above: Order Comment: [facility] has implemented the eGFR calculation approach that does not have a coefficient for race that conforms to the NKF-ASN Task Force Recommendations. Performed By: #### 4 [id number] #### [facility] [address] [place] [address] Jeffrey Kohli M.D. [id number] EGFR 81 mL/min/1.73 m2 Normal >=60 [facility] Comment on above: Order Comment: [facility] has implemented the eGFR calculation approach that does not have a coefficient for race that conforms to the NKF-ASN Task Force Recommendations. Result Comment: Katty mated GFR was calculated using the 2020 CKD-EPI creatinine equation. Performed By: #### 4 6100 #### [facility] [address] [place] [address] Jeffrey Kohli M.D. [id number] Glucose [Mass/Vol] 89 mg/dL Normal 65-99 [facility] Comment on above: Order Comment: [facility] has implemented the eGFR calculation approach that does not have a coefficient for race that conforms to the NKF-ASN Task Force Recommendations. Performed By: #### 4 [id number] #### [facility] [address] [place] [address] Jeffrey Kohli M.D. [id number] HCO3 (Bld) [Moles/Vol] 28 mmol/L Normal 21-32 [facility] Comment on above: Order Comment: [facility] has implemented the eGFR calculation approach that does not have a coefficient for race that conforms to the NKF-ASN Task Force Recommendations. Performed By: #### 4 6124 #### LAB [address] [address] Jeffrey Kohli M.D. [id number] Potassium [Moles/Vol] 4.2 mmol/L Normal 3.5-5.1 [facility] Comment on above: Order Comment: [facility] has implemented the eGFR calculation approach that does not have a coefficient for race that conforms to the NKF-ASN Task Force Recommendations. Performed By: #### 4 6124 #### LAB [address] [id number] Jeffrey Kohli M.D. [id number] Sodium [Moles/Vol] 140 mmol/L Normal 135-145 [facility] Comment on above: Order Comment: [facility] has implemented the eGFR calculation approach that does not have a coefficient for race that conforms to the NKF-ASN Task Force Recommendations. Performed By: #### 4 6124 #### LAB [address] [address] Jeffrey Kohli M.D. [id number] Urea nitrogen [Mass/Vol] 15 mg/dL Normal 8-25 [facility] Comment on above: Order Comment: [facility] has implemented the eGFR calculation approach that does not have a coefficient for race that conforms to the NKF-ASN Task Force Recommendations. Performed By: #### 4 6124 #### [facility] LAB [address] [address] Jeffrey Kohli M.D. [id number] Urea nitrogen/Creatinine [Mass ratio] 15.2 mg/mg Normal 10.0-20.0 [facility] Comment on above: Order Comment: [facility] has implemented the eGFR calculation approach that does not have a coefficient for race that conforms to the NKF-ASN Task Force Recommendations. Performed By: #### 4 6124 #### LAB [address] [address] Jeffrey Kohli M.D. [id number] CBCon 02-14-2025 AUTO NRBC 0.0 % Normal [facility] Comment on above: Performed By: #### 4 [id number] #### LAB [address] [address] Jeffrey Kohli M.D. [id number] AUTO NRBC ABS COUNT 0.00 K/mcL Normal 0.00-0.00 [facility] Comment on above: Performed By: #### 4 [id number] #### LAB [address] [address] Jeffrey Kohli M.D. [id number] Erythrocyte distribution width (RBC) [Ratio] 13.2 % Normal 11.6-14.8 [facility] Comment on above: Performed By: #### 4 [id number] #### LAB [address] [address] Jeffrey Kohli M.D. [id number] Hematocrit (Bld) [Volume fraction] 44.5 % Normal 41.0-53.0 [facility] Comment on above: Performed By: #### 4 [id number] #### LAB [address] [address] Jeffrey Kohli M.D. [id number] Hemoglobin (Bld) [Mass/Vol] 14.4 g/dL Normal 13.5-17.5 [facility] Comment on above: Performed By: #### 4 [id number] #### LAB [address] [address] Jeffrey Kohli M.D. [id number] MCH (RBC) [Entitic mass] 28.0 pg Normal 26.0-34.0 [facility] Comment on above: Performed By: #### 4 [id number] #### LAB [address] [address] Jeffrey Kohli M.D. [id number] MCV (RBC) [Entitic vol] 86.4 fL Normal 80.0-100.0 [facility] Comment on above: Performed By: #### 4 [id number] #### LAB [address] [address] Jeffrey Kohli M.D. [id number] MEAN CORPUSCULAR HEMOGLOBIN CONC 32.4 g/dL Normal 31.0-37.0 [facility] Comment on above: Performed By: #### 4 [id number] #### LAB [address] [address] Jeffrey Kohli M.D. [id number] Platelet mean volume (Bld) [Entitic vol] 10.2 fL Normal 9.4-12.4 [facility] Comment on above: Performed By: #### 4 [id number] #### LAB [address] [address] Jeffrey Kohli M.D. [id number] Platelets (Bld) [#/Vol] 147 10*3/uL Low 150-400 [facility] Comment on above: Performed By: #### 4 [id number] #### LAB [address] [address] Jeffrey Kohli M.D. [id number] RBC (Bld) [#/Vol] 5.15 10*6/uL Normal 4.50-5.90 [facility] Comment on above: Performed By: #### 4 [id number] #### LAB [address] [address] Jeffrey Kohli M.D. [id number] WBC (Bld) [#/Vol] 5.16 10*3/uL Normal 4.50-11.00 [facility] Comment on above: Performed By: #### 4 [id number] #### LAB [address] [address] Jeffrey Kohli M.D. [id number] MRSA CULTURE/SCREENon 2024 MRSA CULTURE/SCREEN MRSA CULTURE No Methicillin Resistant Staphylococcus (MRSA) Isolated Normal [facility] Comment on above: Performed By: #### 4 6124 #### LAB [address] [address] Jeffrey Kohli M.D. [id number] TYPE AND SCREENon 02-14-2025 TYPE AND SCREEN ABORH: O Positive AB SCREEN: Negative EXPIRATION DATE: 03/07/2025 23:59 EST [facility] XR CHEST AP/PA AND LATon XR CHEST AP/PA AND LAT EXAMINATION: XR CHEST AP/PA AND LAT HISTORY: ORDERING SYSTEM PROVIDED HISTORY: pre-op clearance, TECHNOLOGIST PROVIDED HISTORY: Illness/Other Reason for exam: pre-op Cancer History: .u Surgery, RadiationHistory: .u Encounter Type: Initial Additional signs and symptoms: hx of htn ORDERING SYSTEM PROVIDED DIAGNOSIS CODES: Z01.818 Pre-op testing COMPARISON: Chest x-ray from 10/28/2024 FINDINGS: Two-view chest x-ray. No pneumothorax, pleural effusion or focal airspace consolidation. Heart is normal in size. Bony thorax is unremarkable. Thoracic spine stimulator. IMPRESSION: No acute cardiopulmonary process. Workstation ID: [id number] Dictated by: VON MCINTYRE on FriFebruary 14, 2025 3:46:30 PM EDT Transcribed by: VON MCINTYRE on FriFebruary 14, 2025 3:46:30 PM EDT Finalized by: VON MCINTYRE on FriFebruary 14, 2025 3:46:30 PM EDT [facility] Comment on above: Order Comment: [facility] has implemented the eGFR calculation approach that does not have a coefficient for race that conforms to the NKF-ASN Task Force Recommendations. XR LUMBAR SPINE 2-3 VIEWS (S TANDARD)on 01-05-2025 XR LUMBAR SPINE 2-3 VIEWS (STANDARD) EXAMINATION: XR LUMBAR SPINE 2-3 VIEWS (STANDARD); XR THORACIC SPINE 3 VIEWS (STANDARD) 01/05/2025 2:16 pm HISTORY: ORDERING SYSTEM PROVIDED HISTORY: evalaute stimulator for migration., TECHNOLOGIST PROVIDED HISTORY: Illness/Other Reason for exam: evalaute stimulator for migration., Status post lumbar surgery, Cancer History: .u Surgery, RadiationHistory: .u Encounter Type: Ongoing Additional signs and symptoms: . ORDERING SYSTEM PROVIDED DIAGNOSIS CODES: Z98.890 Status post lumbar surgery Z96.89 Status post insertion of spinal cord stimulator COMPARISON: 11/18/2024. FINDINGS: THORACIC SPINE: Osteopenia and degenerative changes with levoscoliosis distally. There is a neural stim device identified at approximately the T7-T8 level which is stable. No complication is seen. No fracture or compression deformity is seen and no significant subluxation is identified. LUMBAR SPINE: Severe degenerative changes of the lumbar spine and degenerative anterolisthesis grade 1 of L4 on L5. There is facet arthropathy. Dextroscoliosis. Degenerative changes of the sacroiliac joints. IMPRESSION: Neural stim device at approximately the T7-T8 level not significantly changed. No complication. Degenerative changes of the thoracic and lumbosacral spine with scoliotic curvature. No acute fracture. MA/jcw Workstation ID: [id number] Dictated by: MITA VERA on FriJan 06, 2025 4:30:01 PM EDT Transcribed by: MATTHEW OROPEZA on FriJan 06, 2025 4:58:20 PM EDT Finalized by: MITA VERA on FriJan 07, 2025 9:31:24 AM EDT [facility] Comment on above: Order Comment: Injur y/Trauma or Illness?:Illness/Other How long have you had these symptoms (acute/chronic)?:Acute Reason for exam?:evalaute stimulator for migration., Status post lumbar surgery, History of cancer?:.u Surgeries, chemotherapy, or radiation?:.u Type of Exam?:Ongoing Additional signs and symptoms?:. XR THORACIC SPINE 3 VIEWS (S TANDARD)on 01-05-2025 XR THORACIC SPINE 3 VIEWS (STANDARD) EXAMINATION: XR LUMBAR SPINE 2-3 VIEWS (STANDARD); XR THORACIC SPINE 3 VIEWS (STANDARD) 01/05/2025 2:16 pm HISTORY: ORDERING SYSTEM PROVIDED HISTORY: evalaute stimulator for migration., TECHNOLOGIST PROVIDED HISTORY: Illness/Other Reason for exam: evalaute stimulator for migration., Status post lumbar surgery, Cancer History: .u Surgery, RadiationHistory: .u Encounter Type: Ongoing Additional signs and symptoms: . ORDERING SYSTEM PROVIDED DIAGNOSIS CODES: Z98.890 Status post lumbar surgery Z96.89 Status post insertion of spinal cord stimulator COMPARISON: 11/18/2024. FINDINGS: THORACIC SPINE: Osteopenia and degenerative changes with levoscoliosis distally. There is a neural stim device identified at approximately the T7-T8 level which is stable. No complication is seen. No fracture or compression deformity is seen and no significant subluxation is identified. LUMBAR SPINE: Severe degenerative changes of the lumbar spine and degenerative anterolisthesis grade 1 of L4 on L5. There is facet arthropathy. Dextroscoliosis. Degenerative changes of the sacroiliac joints. IMPRESSION: Neural stim device at approximately the T7-T8 level not significantly changed. No complication. Degenerative changes of the thoracic and lumbosacral spine with scoliotic curvature. No acute fracture. MA/jcw Workstation ID: [id number] Dictated by: MITA VERA on FriJan 06, 2025 4:30:01 PM EDT Transcribed by: MATTHEW OROPEZA on FriJan 06, 2025 4:58:20 PM EDT Finalized by: MITA VERA on FriJan 07, 2025 9:31:24 AM EDT [facility] Comment on above: Order Comment: Injur y/Trauma or Illness?:Illness/Other How long have you had these symptoms (acute/chronic)?:Acute Reason for exam?:evalaute stimulator for migration., Status post lumbar surgery, History of cancer?:.u Surgeries, chemotherapy, or radiation?:.u Type of Exam?:Ongoing Additional signs and symptoms?:. Bilirubin directOrdered By: Cathleen Fermin on 12-21-2024 Bilirubin.direct [Mass/Vol] 0.28 mg/dL 0.00-0.30 [facility] Bilirubin, totalOrdered By: Cathleen Fermin on 12-21-2024 Bilirubin [Mass/Vol] 0.58 mg/dL 0.00-1.30 [facility] Calculated very low density lipoprotein (VLDL) cholesterol measurementOrdered By: Cathleen Fermin on 12-21-2024 Calculated very low density lipoprotein (VLDL) cholesterol measurement 11 mg/dL 5-40 [facility] VLDL Cholesterol 11 mg/dL 5-40 [facility] LDL calc ser/plasOrdered By: Cathleen Fermin on 12-21-2024 Cholesterol in LDL [Mass/Vol] 69 mg/dL [facility] Comment on above: Oeabmwujug=706-866 m g/dL & Higher Toua=050 mg/dL or greater LDL Cholesterol, Calculated 69 mg/dL [facility] Comment on above: Noejnddawn=229-328 m g/dL & Higher Xylh=917 mg/dL or greater Laboratory - Chemistry and C hemistry - challengeOrdered By: Cathleen Fermin on 12-21-2024 AST [Catalytic activity/Vol] 30 U/L <38 [facility] Lipid Profileon 12-21-2024 CHOL:HDL 2.08 Normal [facility] Comment on above: Performed By: #### L 500.4100, L500.3400 #### [facility] Laboratory [address] [place], [address] Cholesterol [Mass/Vol] 155 mg/dL Normal <=200 [facility] Comment on above: Result Comment: Chol esterol level, Desirable <200 mg/dL Borderline high cholesterol 200-239 mg/dL High cholesterol >=240 mg/dL Recommendations of the NCEP Adult Treatment Panel for the following risk-cutoff thresholds for the [place] population. Performed By: #### L 500.4100, L500.3400 #### [facility] [address] [place], [address] Cholesterol in HDL [Mass/Vol] 74 mg/dL Normal [facility] Comment on above: Result Comment: Gaby onal Cholesterol Education Program (NCEP) guidelines: <40 mg/dL: Low HDL-cholesterol (major risk factor for CHD) >= 60 mg/dL: High HDL-cholesterol (negative risk factor for CHD) HDL-cholesterol is affected by a number of factors, e.g. smoking, exercise, hormones, sex and age. Performed By: #### L 500.4100, L500.3400 #### [facility] [address] [place], [address] Cholesterol in LDL [Mass/Vol] 69 mg/dL Normal [facility] Comment on above: Result Comment: Bord wxbnkg=674-543 mg/dL Higher Lckw=924 mg/dL or greater Performed By: #### L 500.4100, L500.3400 #### [facility] [address] [place], [address] Cholesterol in VLDL [Mass/Vol] 11 mg/dL Normal 5-40 [facility] Comment on above: Performed By: #### L 500.4100, L500.3400 #### [facility] [address] [place], [address] Triglyceride [Mass/Vol] 57 mg/dL Normal [facility] Comment on above: Result Comment: The drugs N-Acetylcysteine and Metamizole may falsely depress this assay. Normal range: <150 mg/dL Borderline High: 150-199 mg/dL High: 200-499 mg/dL Very High: >500 mg/dL Performed By: #### L 500.4100, L500.3400 #### [facility] [address] [place], [address] Liver Profileon 12-21-2024 Albumin [Mass/Vol] 3.8 g/dL Normal 3.4-4.8 [facility] Comment on above: Performed By: #### L 500.4100, L500.3400 #### [facility] [address] [place], [address] ALK PHOS 95 U/L Normal 40-129 [facility] Comment on above: Performed By: #### L 500.4100, L500.3400 #### [facility] [address] [place], [address] ALT [Catalytic activity/Vol] 22 U/L Normal <=46 [facility] Comment on above: Performed By: #### L 500.4100, L500.3400 #### [facility] [address] [place], [address] AST [Catalytic activity/Vol] 30 U/L Normal <=37 [facility] Comment on above: Performed By: #### L 500.4100, L500.3400 #### [facility] [address] [place], [address] Bilirubin [Mass/Vol] 0.58 mg/dL Normal 0.00-1.30 [facility] Comment on above: Performed By: #### L 500.4100, L500.3400 #### [facility] [address] [place], [address] Bilirubin.direct [Mass/Vol] 0.28 mg/dL Normal 0.00-0.30 [facility] Comment on above: Performed By: #### L 500.4100, L500.3400 #### [facility] [address] [place], [address] Globulin (S) [Mass/Vol] 2.2 g/dL Normal 2.2-4.2 [facility] Comment on above: Performed By: #### L 500.4100, L500.3400 #### [facility] [address] [place], [address] T PROT 6.0 g/dL Normal 5.9-8.4 [facility] Comment on above: Performed By: #### L 500.4100, L500.3400 #### [facility] [address] [place], [address] Screening total cholesterol/ high density lipoprotein (HDL) cholesterol ratioOrdered By: Cathleen Fermin on 12-21-2024 Cholesterol.total/Chol esterol in HDL [Mass ratio] 2.08 {ratio} [facility] Serum globulin measurementOr dered By: Cathleen Fermin on 12-21-2024 Globulin (S) [Mass/Vol] 2.2 g/dL 2.2-4.2 [facility] Serum or plasma alanine rios otransferase (ALT) measurementOrdered By: Cathleen Fermin on 12-21-2024 ALT [Catalytic activity/Vol] 22 U/L <47 [facility] Serum or plasma albumin mamie urement (mass/volume)Ordered By: Cathleen Fermin on 12-21-2024 Albumin [Mass/Vol] 3.8 g/dL 3.4-4.8 [facility] Serum or plasma alkaline ruddy sphatase measurementOrdered By: Cathleen Fermin on 03-11-2025 ALP [Catalytic activity/Vol] 95 U/L 40-129 [facility] Serum or plasma cholesterol in HDL measurement (mass/volume)Ordered By: Cathleen Fermin on 12-21-2024 Cholesterol in HDL [Mass/Vol] 74 mg/dL >40 [facility] Comment on above: National Cholesterol Education Program (NCEP) guidelines:<40 mg/dL: Low HDL-cholesterol (major risk factor for CHD)>= 60 mg/dL: High HDL-cholesterol (negative risk factor for CHD)HDL-cholesterol is affected by a number of factors, e.g. smoking, exercise, hormones, sex and age. Serum or plasma cholesterol measurement (mass/volume)Ordered By: Cathleen Fermin on 12-21-2024 Cholesterol [Mass/Vol] 155 mg/dL <201 [facility] Comment on above: Cholesterol level, D esirable <200 mg/dLBorderline high cholesterol 200-239 mg/dLHigh cholesterol >=240 mg/dLRecommendations of the NCEP Adult Treatment Panel for the following risk-cutoff thresholds for the [place] population. Total proteinOrdered By: Anton Fermin on 12-21-2024 Protein [Mass/Vol] 6.0 g/dL 5.9-8.4 [facility] Triglycerides measurementOrd ered By: Cathleen Fermin on 12-21-2024 Triglyceride [Mass/Vol] 57 mg/dL <199 [facility] Comment on above: The drugs N-Acetylcy steine and Metamizole may falsely depress this assay. Normal range: <150 mg/dLBorderline High: 150-199 mg/dLHigh: 200-499 mg/dLVery High: >500 mg/dL C-REACTIVE PROTEINon 025 CRP [Mass/Vol] mg/L Normal <8.0 [facility] Comment on above: Performed By: #### 6 937, 317 #### [facility] [address], [address] [place] [id number] Fermentologist: Randal Alejandre MD CBC (INCLUDES DIFF/PLT)on Basophils (Bld) [#/Vol] 0.029 10*3/uL Normal 0-200 [facility] Comment on above: Performed By: #### 6 399, 809 #### [facility] [address] [address] Fermentologist: Randal Alejandre MD Basophils/100 WBC (Bld) 0.5 % Normal [facility] Comment on above: Performed By: #### 6 399, 809 #### [facility] [address] [address] Fermentologist: Randal Alejandre MD Eosinophils (Bld) [#/Vol] 0.171 10*3/uL Normal 15-500 [facility] Comment on above: Performed By: #### 6 399, 809 #### [facility] [address] [address] Fermentologist: Randal Alejandre MD Eosinophils/100 WBC (Bld) 3.0 % Normal [facility] Comment on above: Performed By: #### 6 399, 809 #### [facility] [address] [address] Fermentologist: Randal Alejandre MD Erythrocyte distribution width (RBC) [Ratio] 13.0 % Normal 11.0-15.0 [facility] Comment on above: Performed By: #### 6 399, 809 #### [facility] [address] [place] [address] Fermentologist: Randal Alejandre MD Hematocrit (Bld) [Volume fraction] 47.2 % Normal 38.5-50.0 [facility] Comment on above: Performed By: #### 6 399, 809 #### [facility] [address] [place] [address] Fermentologist: Randal Alejandre MD Hemoglobin (Bld) [Mass/Vol] 15.2 g/dL Normal 13.2-17.1 [facility] Comment on above: Performed By: #### 6 399, 809 #### [facility] [address] [place] [address] Fermentologist: Randal Alejandre MD Lymphocytes (Bld) [#/Vol] 0.918 10*3/uL Normal 850-3900 [facility] Comment on above: Performed By: #### 6 399, 809 #### [facility] [place] [address] Fermentologist: Randal Alejandre MD Lymphocytes/100 WBC (Bld) 16.1 % Normal [facility] Comment on above: Performed By: #### 6 399, 809 #### [facility] [place] [address] Fermentologist: Randal Alejandre MD MCH (RBC) [Entitic mass] 28.1 pg Normal 27.0-33.0 [facility] Comment on above: Performed By: #### 6 399, 809 #### [facility] [place] [address] Fermentologist: Randal Alejandre MD MCHC (RBC) [Mass/Vol] 32.2 g/dL Normal 32.0-36.[address] [facility] Comment on above: Result Comment: For adults, a slight decrease in the calculated MCHC value (in the range of 30 to 32 g/dL) is most likely not clinically significant; however, it should be interpreted with caution in correlation with other red cell parameters and the patient's clinical condition. Performed By: #### 6 399, 809 #### [facility] [place] [address] Fermentologist: Randal Alejandre MD MCV (RBC) [Entitic vol] 87.2 fL Normal 80.0-100.0 [facility] Comment on above: Performed By: #### 6 399, 809 #### [facility] [place] [address] Fermentologist: Randal Alejandre MD Monocytes (Bld) [#/Vol] 0.45 10*3/uL Normal 200-950 [facility] Comment on above: Performed By: #### 6 399, 809 #### [facility] [place] [address] Fermentologist: Randal Alejandre MD Monocytes/100 WBC (Bld) 7.9 % Normal [facility] Comment on above: Performed By: #### 6 399, 809 #### [facility] [place] [address] Fermentologist: Randal Alejandre MD Neutrophils (Bld) [#/Vol] 4.133 10*3/uL Normal 2963-7825 [facility] Comment on above: Performed By: #### 6 399, 809 #### [facility] [place] [address] Fermentologist: Randal Alejandre MD Neutrophils/100 WBC (Bld) 72.5 % Normal [facility] Comment on above: Performed By: #### 6 399, 809 #### [facility] [place] [address] Fermentologist: Randal Alejandre MD Platelet mean volume (Bld) [Entitic vol] 10.8 fL Normal 7.5-12.5 [facility] Comment on above: Performed By: #### 6 399, 809 #### [facility] [place] [address] Fermentologist: Randal Alejandre MD Platelets (Bld) [#/Vol] 176 10*3/uL Normal 140-400 [facility] Comment on above: Performed By: #### 6 399, 809 #### [facility] [place] [address] Fermentologist: Randal Alejandre MD RBC (Bld) [#/Vol] 5.41 10*6/uL Normal 4.20-5.80 [facility] Comment on above: Performed By: #### 6 399, 809 #### [facility] [place] [address] Fermentologist: Randal Alejandre MD WBC (Bld) [#/Vol] 5.7 10*3/uL Normal 3.8-10.8 [facility] Comment on above: Performed By: #### 6 399, 809 #### [facility] [address], [address] [place] [address] Fermentologist: Randal Alejandre MD SED RATE BY MODIFIED LISA Thomas 12-09-2024 SED RATE BY MODIFIED WESTERGREN 2 mm/h Normal < OR = 20 [facility] Comment on above: Performed By: #### 6 399, 809 #### [facility] [address], [address] [place] [address] Fermentologist: Randal Alejandre MD Blood type and Indirect anti body screen panel (Bld)on 11-18-2024 ABO and Rh group Nom (d) Blood group O Rh(D) positive [facility] Blood group antibody screen Ql Negative [facility] Specimen Expires 11/21/2024 23:59 EST [facility] INR Coag (PPP) [Relative johnny e]on 11-18-2024 Interpretation and review of laboratory results Normal [facility] PT Coag (PPP) [Time] 13.5 s [facility] During the induction phase of oral anticoagulation, the INR may not reflect the anticoagulation status of the patient. Therapeutic ranges for INR's are: Most clinical situations: INR 2.0-3.0 Mechanical Prosthetic Valve: INR 2.5-3.5 Critical: INR >5.0 [facility] OP NOTEon 11-18-2024 OP NOTE TAMRA GUZMAN [facility] [id number] 1955 DATE 11/18/2024 OPERATIVE REPORT SURGEON ANDREW GUZMAN MD PREOPERATIVE DIAGNOSES Retained spinal cord stimulator, with malfunctioning spinal cord stimulator, and chronic axial lumbosacral pain and leg pain. POSTOPERATIVE DIAGNOSES Retained spinal cord stimulator, with malfunctioning spinal cord stimulator, and chronic axial lumbosacral pain and leg pain. PROCEDURES 1. Removal of retained spinal cord stimulator, bilateral electrodes via T10 laminectomy. 2. Removal of left flank implantable pulse generator via separate incision. 3. Insertion of new paddle spinal cord stimulator, dorsal column electrode via T9-T10 laminectomy. 4. Insertion of left flank implantable pulse generator. ANESTHESIA General. INDICATION Tamra Guzman is a 69-year-old male who had at an outside institution a spinal cord stimulator system placed. He had excellent relief of his pain with 100% pain relief by his recollection from his axial lumbosacral spinal pain and leg pain. However, the system has now malfunctioned. He has been interrogated by a practice representative from [employer] and noted to have multiple faults. Because of these faults, the patient also is precluded from undergoing MRI scanning. Because of the faults in the system and the poor functionality, the patient requests removal of the system as well as replacement with a new spinal cord stimulator system. In addition, he would like his left IPG to be relocated more cephalad so it does not interfere with his beltline. PROCEDURE IN DETAIL The procedure was performed in OR #2. The patient was intubated, and general anesthesia was established. An appropriate time-out was performed with Neurosurgery, Anesthesiology, and nursing teams, and all agreed with this patient's identity and planned procedure. After intubation and establishing general anesthesia, he was carefully rotated in the prone position on a Bhaskar spine frame, taking care to pad all pressure points. He received 2 g of Ancef at the onset of the procedure for antibiotic prophylaxis. Fluoroscopy was used to positively identify the positions of the leads after reference purposes. Next, the thoracolumbar sacral area and left flank area were cleansed with alcohol, prepped with ChloraPrep, and draped in the usual sterile fashion. 10 cc of a 1:1 mixture of 0.5% Marcaine plain with 1% lidocaine was used for local infiltration purposes of the skin and soft tissues at all 3 incision sites. First, an incision was made spanning the T9-T10 laminar areas in the midline. Points of bleeding were controlled with bipolar cautery. Monopolar cautery was used to dissect down through the thoracic dorsal fascia, exposing the lamina of T9 and T10. A self-retaining retractor was placed. Throughout the case, small amounts of Floseal, thrombin-soaked Gelfoam, Surgicel, and Fibrillar were used for hemostasis, all of which were removed from all operative sites prior to closure. The spinous process of T10 was resected. Next, a high-speed Midas Dat drill was then used to thin the lamina of the T10 level. Points of bony bleeding were controlled with a liberal application of bone wax. Next, a laminectomy was performed, removing hypertrophied ligamentum flavum and laminar bone from T10 to expose the epidural space. There was significant scarring in the epidural space, and the 2 midline electrodes were noted to be scarred into place. Very carefully using sharp dissection, the dorsal most aspect of the epidural scar was resected to free the electrodes. A Vectra was very easily slid from their epidural scar and pseudocapsule in an inferior caudal fashion. Next, the pre-existing incision at the L2 level was reopened to expose in the subcutaneous tissues after cutting the skin with a 10 blade, the anchor boots that had been left previously. [place] boots were freed from anchor sutures, and the leads were then once again removed, from the laminectomy site by gently pulling to this new incision site. A third incision was then made, reopening the pre-existing scar in the left flank. The pseudocapsule surrounding the IPG was opened, and the IPG was then explanted. The wires were cut at the IPG, and then these wires were then pulled through to the L2 incision. All aspects and components of this spinal cord stimulator system were removed and then discarded. Next, the pseudocapsule was closed with interrupted 0 Vicryl suture at the IPG site. Next, a new paddle electrode was placed. This because of the scar necessitated T9 laminectomy. T9 laminectomy was then performed using the high-speed Midas Dat drill of the inferior half of T9, followed by opening further with Kerrison rongeurs to achieve a plane superior to the area of epidural scarring from the electrodes. Next, an Driver Penta lead passed without difficulty from caudad to cephalad (more content not included)... Normal [facility] PT/INRon 11-18-2024 INR Coag (PPP) [Relative time] 1 {INR} 0.8 - 1.1 [facility] INR Coag (PPP) [Relative time] 1.0 {INR} Normal 0.8-1.1 [facility] Comment on above: Order Comment: [facility] has implemented the eGFR calculation approach that does not have a coefficient for race that conforms to the NKF-ASN Task Force Recommendations. Performed By: #### 4 [id number] #### [facility] [address] [place], [place] [address] Jeffrey Kohli M.D. [id number] PT Coag (PPP) [Time] 13.5 s Normal 11.8-14.3 [facility] Comment on above: Order Comment: [facility] has implemented the eGFR calculation approach that does not have a coefficient for race that conforms to the NKF-ASN Task Force Recommendations. Performed By: #### 4 [id number] #### [facility] [address] [place], [place] [address] Jeffrey Kohli M.D. [id number] TYPE AND SCREENon 11-18-2024 TYPE AND SCREEN ABORH: O Positive AB SCREEN: Negative EXPIRATION DATE: 11/21/2024 23:59 EST Normal [facility] XR OR T-SPINE 2 VIEWSon XR OR T-SPINE 2 VIEWS EXAMINATION: XR OR T-SPINE 2 VIEWS HISTORY: ORDERING SYSTEM PROVIDED HISTORY: T 7-9 LAMINECTOMY/ POSS FUSION, TECHNOLOGIST PROVIDED HISTORY: Illness/Other Reason for exam: SPINAL CORD STIMULATOR REMOVAL AND REPLACEMENT, LAMINECTOMY Encounter Type: Initial Additional signs and symptoms: . Fluoro dose in mGy: 2.41 ORDERING SYSTEM PROVIDED DIAGNOSIS CODES: COMPARISON: None. TECHNIQUE: RADIATION EXPOSURE: Fluoro dose in Ka,r mGy: 2.41. A total of six intraoperative fluoroscopic spot films were submitted from the operative procedure. FINDINGS: Films obtained for the above procedure. IMPRESSION: Fluoroscopic films as above. Please see operative report for further details. Mosa Records/NI Workstation ID: [id number] Dictated by: SONAM SELF on FriNov 22, 2024 9:51:50 AM EST Transcribed by: MEAGAN URBAN on FriNov 22, 2024 10:50:51 AM EST Finalized by: SONAM SELF on FriNov 22, 2024 1:07:55 PM EST Normal [facility] Comment on above: Order Comment: [facility] has implemented the eGFR calculation approach that does not have a coefficient for race that conforms to the NKF-ASN Task Force Recommendations. BASIC METABOLIC PANELon 10-13 Anion gap [Moles/Vol] 12 mmol/L Normal 10-20 [facility] Comment on above: Order Comment: [facility] has implemented the eGFR calculation approach that does not have a coefficient for race that conforms to the NKF-ASN Task Force Recommendations. Performed By: #### 4 6124 #### LAB [address] [place], [place] [address] Jeffrey Kohli M.D. [id number] Calcium [Mass/Vol] 9.0 mg/dL Normal 8.4-10.2 [facility] Comment on above: Order Comment: [facility] has implemented the eGFR calculation approach that does not have a coefficient for race that conforms to the NKF-ASN Task Force Recommendations. Performed By: #### 4 6124 #### LAB [address] [place] [address] Jeffrey Kohli M.D. [id number] Chloride [Moles/Vol] 106 mmol/L Normal 98-108 [facility] Comment on above: Order Comment: [facility] has implemented the eGFR calculation approach that does not have a coefficient for race that conforms to the NKF-ASN Task Force Recommendations. Performed By: #### 4 6124 #### LAB [address] [place] [address] Jeffrey Kohli M.D. [id number] Creatinine [Mass/Vol] 1.05 mg/dL Normal 0.80-1.30 [facility] Comment on above: Order Comment: [facility] has implemented the eGFR calculation approach that does not have a coefficient for race that conforms to the NKF-ASN Task Force Recommendations. Performed By: #### 4 6124 #### LAB [address] [place] [address] Jeffrey Kohli M.D. [id number] EGFR 76 mL/min/1.73 m2 Normal >=60 [facility] Comment on above: Order Comment: [facility] has implemented the eGFR calculation approach that does not have a coefficient for race that conforms to the NKF-ASN Task Force Recommendations. Result Comment: Katty mated GFR was calculated using the 2020 CKD-EPI creatinine equation. Performed By: #### 4 6124 #### LAB [address] [place] [address] Jeffrey Kohli M.D. [id number] Glucose [Mass/Vol] 84 mg/dL Normal 65-99 [facility] Comment on above: Order Comment: [facility] has implemented the eGFR calculation approach that does not have a coefficient for race that conforms to the NKF-ASN Task Force Recommendations. Performed By: #### 4 6124 #### LAB [address] [place] [address] Jeffrey Kohli M.D. [id number] HCO3 (Bld) [Moles/Vol] 28 mmol/L Normal 21-32 [facility] Comment on above: Order Comment: [facility] has implemented the eGFR calculation approach that does not have a coefficient for race that conforms to the NKF-ASN Task Force Recommendations. Performed By: #### 4 6124 #### LAB [address] [place] [address] Jeffrey Kohli M.D. [id number] Potassium [Moles/Vol] 4.6 mmol/L Normal 3.5-5.1 [facility] Comment on above: Order Comment: [facility] has implemented the eGFR calculation approach that does not have a coefficient for race that conforms to the NKF-ASN Task Force Recommendations. Performed By: #### 4 6137 #### LAB [address] [place] [address] Jeffrey Kohli M.D. [id number] Sodium [Moles/Vol] 141 mmol/L Normal 135-145 [facility] Comment on above: Order Comment: [facility] has implemented the eGFR calculation approach that does not have a coefficient for race that conforms to the NKF-ASN Task Force Recommendations. Performed By: #### 4 6124 #### [facility] [address] [place] [address] Jeffrey Kohli M.D. [id number] Urea nitrogen [Mass/Vol] 16 mg/dL Normal 8-25 [facility] Comment on above: Order Comment: [facility] has implemented the eGFR calculation approach that does not have a coefficient for race that conforms to the NKF-ASN Task Force Recommendations. Performed By: #### 4 6124 #### LAB [address] [place] [address] Jeffrey Kohli M.D. [id number] Urea nitrogen/Creatinine [Mass ratio] 15.2 mg/mg Normal 10.0-20.0 [facility] Comment on above: Order Comment: [facility] has implemented the eGFR calculation approach that does not have a coefficient for race that conforms to the NKF-ASN Task Force Recommendations. Performed By: #### 4 6124 #### LAB [address] [place] [address] Jeffrey Kohli M.D. [id number] CBCon 10-28-2024 AUTO NRBC 0.0 % Normal [facility] Comment on above: Performed By: #### 4 [id number] #### LAB [address] [place] [address] Jeffrey Kohli M.D. [id number] AUTO NRBC ABS COUNT 0.00 K/mcL Normal 0.00-0.00 [facility] Comment on above: Performed By: #### 4 [id number] #### LAB [address] [place] [address] Jeffrey Kohli M.D. [id number] Erythrocyte distribution width (RBC) [Ratio] 13.2 % Normal 11.6-14.8 [facility] Comment on above: Performed By: #### 4 [id number] #### LAB [address] [place] [address] Jeffrey Kohli M.D. [id number] Hematocrit (Bld) [Volume fraction] 45.7 % Normal 41.0-53.0 [facility] Comment on above: Performed By: #### 4 [id number] #### LAB [address] [place] [address] Jeffrey Kohli M.D. [id number] Hemoglobin (Bld) [Mass/Vol] 14.6 g/dL Normal 13.5-17.5 [facility] Comment on above: Performed By: #### 4 [id number] #### LAB [address] [place] [address] Jeffrey Kohli M.D. [id number] MCH (RBC) [Entitic mass] 27.9 pg Normal 26.0-34.0 [facility] Comment on above: Performed By: #### 4 [id number] #### LAB [address] [place] [address] Jeffrey Kohli M.D. [id number] MCV (RBC) [Entitic vol] 87.4 fL Normal 80.0-100.0 [facility] Comment on above: Performed By: #### 4 [id number] #### LAB [address] [place] [address] Jeffrey Kohli M.D. [id number] MEAN CORPUSCULAR HEMOGLOBIN CONC 31.9 g/dL Normal 31.0-37.0 [facility] Comment on above: Performed By: #### 4 [id number] #### LAB [address] [place] [address] Jeffrey Kohli M.D. [id number] Platelet mean volume (Bld) [Entitic vol] 10.2 fL Normal 9.4-12.4 [facility] Comment on above: Performed By: #### 4 [id number] #### LAB [address] [place] [address] Jeffrey Kohli M.D. [id number] Platelets (Bld) [#/Vol] 150 10*3/uL Normal 150-400 [facility] Comment on above: Performed By: #### 4 [id number] #### LAB [address] [place] [address] Jeffrey Kohli M.D. [id number] RBC (Bld) [#/Vol] 5.23 10*6/uL Normal 4.50-5.90 [facility] Comment on above: Performed By: #### 4 [id number] #### LAB [address] [place] [address] Jeffrey Kohli M.D. [id number] WBC (Bld) [#/Vol] 5.13 10*3/uL Normal 4.50-11.00 [facility] Comment on above: Performed By: #### 4 [id number] #### LAB [address] [place] [address] Jeffrey Kohli M.D. [id number] MRSA CULTURE/SCREENon 2024 MRSA CULTURE/SCREEN MRSA CULTURE No Methicillin Resistant Staphylococcus (MRSA) Isolated Normal [facility] Comment on above: Performed By: #### 4 4185 #### [facility] [address] [address] Vishal Morrell M.D. [id number] TYPE AND SCREENon 10-28-2024 TYPE AND SCREEN ABORH: O Positive AB SCREEN: Negative EXPIRATION DATE: 11/18/2024 23:59 EST Normal [facility] XR CHEST AP/PA AND LATon XR CHEST AP/PA AND LAT EXAMINATION: XR CHEST AP/PA AND LAT HISTORY: ORDERING SYSTEM PROVIDED HISTORY: Pre-op clearance. TECHNOLOGIST PROVIDED HISTORY: Illness/Other. Reason for exam: Pre-op. Encounter Type: Initial. ORDERING SYSTEM PROVIDED DIAGNOSIS CODES: Z01.818 Pre-op testing. COMPARISON: Thoracic spine CT 10/05/2024. FINDINGS: Frontal and lateral views of the chest are submitted. MEDIASTINUM: Cardiac silhouette is within normal limits. LUNGS AND PLEURA: Lungs, pleural spaces and pulmonary vasculature are within normal limits. OSSEOUS STRUCTURES AND SOFT TISSUES: No acute osseous abnormality. Spinal stimulator leads in place. IMPRESSION: 1. No acute cardiopulmonary abnormality. VKR/pji Workstation ID: [id number] Dictated by: BETH PRADO on FriOct 28, 2024 12:06:25 PM EST Transcribed by: TUCKER NUNES on FriOct 28, 2024 12:52:17 PM EST Finalized by: BETH PRADO on FriOct 28, 2024 4:39:10 PM EST Normal [facility] Comment on above: Order Comment: Injur y/Trauma or Illness?:Illness/Other How long have you had these symptoms (acute/chronic)?:Acute Reason for exam?:pre-op History of cancer?:. Surgeries, chemotherapy, or radiation?:. Type of Exam?:Initial Additional signs and symptoms?:. Spine Thoracic without Contr ason 10-05-2024 Spine Thoracic without Contras [facility] Services [address] [place] [address] Spine Thoracic without Contras MR#: [id number] Acct: [id number] Name: TAMRA GUZMAN Rep #: [id number] : 1955 M 69 From: Haider Beatty MD PCP: Dr. Mike Aburto MD Status: REG CLI Study: Spine Thoracic without Contras Date of Exam: 12/06/23 Exam# [id number] Ordering Dr: Ahmet Frances PA-C [id number] INDICATION: mid-back pain, neuro deficit EXAMINATION: CT THORACIC SPINE - CT Spine Thoracic W/O Contrast Injection TECHNIQUE: Helically acquired images were obtained of the thoracic spine. 2D reformats were reviewed. A radiation dose optimization technique was used for this scan. IV Contrast dosage and agent: None. COMPARISON: None. FINDINGS: VERTEBRAE: No fracture. No discrete lytic or blastic abnormality observed. VERTEBRAL ALIGNMENT: 4 mm retrolisthesis L1 on L2, L2 on L3. There is preservation of the normal thoracic kyphosis. DISCS: Thoracic disc heights preserved. Loss of disc space height at L1-2. No critical stenosis. Stimulator leads present in the distal thoracic spinal canal posteriorly. VISUALIZED THORAX: No thoracic aortic aneurysm. Bilateral nonobstructing nephrolithiasis. CT/Spine Thoracic without Contras IMPRESSION: No significant thoracic stenosis or acute bony abnormality. 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 Electronically Signed: Haider Beatty MD at 0:43 EST Reading Location ID and State: [facility] / [place] Tel , Service support , CC: CHANDNI Frances; Dr. Mike Aburto MD Compressor Operator Adjuster: Signed Normal [facility] Spine Lumbar without Contras ton 09-03-2024 Spine Lumbar without Contrast [facility] [address] [place] [address] Spine Lumbar without Contrast MR#: [id number] Acct: [id number] Name: TAMRA GUZMAN Rep #: [id number] : 1955 M 69 From: Peter garay DO PCP: Dr. Mike Aburto MD Status: REG CLI Study: Spine Lumbar without Contrast Date of Exam: Exam# [id number] Ordering Dr: Mike Aburto MD [id number] EXAM: CT LUMBAR SPINE WITHOUT INTRAVENOUS CONTRAST CLINICAL INDICATION: ENCOUNTER FOR ASJUSTMAENT AND MANAGEMENT OF NUEROSTIMULATOR AND EVALUATION OF WIRES MAR SERIES TECHNIQUE: Helically acquired images were obtained of the lumbar spine without intravenous contrast. 2D reformats were reviewed. This CT exam was performed using one or more of the following dose reduction techniques: automated exposure control, adjustment of the mA and/or kV according to patient size, and/or use of iterative reconstruction technique. COMPARISON: CT abdomen and pelvis, 03/11/2023 FINDINGS: VERTEBRAE: Multilevel facet and endplate osteophytosis. [place] left lower thoracic and apex right lumbar spinal curvatures are present. Degenerative anterolisthesis, grade 1 at L4-L5. No fracture. No discrete lytic or blastic abnormality. DISCS/SPINAL CANAL/NEURAL FORAMINA: Mild to moderate multilevel lumbar spinal canal stenosis and [id number]-bxmovmch multilevel lumbar neural foraminal narrowing, perhaps severe at L4-L5 and L5-S1. Multilevel intervertebral disc height loss. Scattered areas of vacuum disc phenomenon. VASCULATURE: Atherosclerosis. Visualized abdominal aorta is not dilated. LYMPH NODES: No significant abnormality. No retroperitoneal adenopathy. KIDNEYS AND URETERS: Bilateral nonobstructive nephrolithiasis. Right renal cyst for which no follow-up is indicated. TUBES, LINES AND DEVICES: Dorsal cord stimulator is present with leads entering the spinal canal at the T12-L1 interlaminar space. The leads terminate slightly staggered at the level of T7. OTHER FINDINGS: Mediastinal granulomas. CT/Spine Lumbar without Contrast IMPRESSION: 1. Multilevel degenerative changes. No acute osseous abnormalities. Degenerative anterolisthesis of L4 upon L5. 2. Dorsal cord stimulator is present with leads entering the spinal canal at the T12-L1 interlaminar space. The leads terminate slightly staggered at the level of T7. 3. [place] left lower thoracic and apex right lumbar spinal curvatures are present. 4. Bilateral nonobstructive nephrolithiasis. Electronically Signed: Peter Estrella, DO at 11:41 EST , CC: Dr. Mike Aburto MD Compressor Operator Adjuster: Signed Normal [facility] CBC W/Diff, Automatedon 08-13 Absolute Lymph 0.97 X10 3/uL Normal 0.83-4.51 [facility] Comment on above: Performed By: #### L 500.4100, L500.3400 #### [facility] [address] [place], [address] Absolute Neut 4.6 X10 3/uL Normal 2.0-7.7 [facility] Comment on above: Performed By: #### L 500.4100, L500.3400 #### [facility] [address] [facility] [place], [address] Basophils/100 WBC (Bld) 0.5 % Normal 0-1 [facility] Comment on above: Performed By: #### L 500.4100, L500.3400 #### [facility] [address] [place], [address] Eosinophils/100 WBC (Bld) 3.9 % Normal 0-5 [facility] Comment on above: Performed By: #### L 500.4100, L500.3400 #### [facility] [address] [place], [address] Erythrocyte distribution width (RBC) [Ratio] 13.0 % Normal 11.6-14.6 [facility] Comment on above: Performed By: #### L 500.4100, L500.3400 #### [facility] [address] [place], [address] Hematocrit (Bld) [Volume fraction] 45.0 % Normal 40-54 [facility] Comment on above: Performed By: #### L 500.4100, L500.3400 #### [facility] [address] [place], [address] Hemoglobin (Bld) [Mass/Vol] 14.3 g/dL Normal 13.0-16.5 [facility] Comment on above: Performed By: #### L 500.4100, L500.3400 #### [facility] [address] [place], [address] IG% 0.300 Normal 0.0-0.9 [facility] Comment on above: Result Comment: IG% - Immature Granulocytes (promyelocytes, myelocytes and metamyelocytes) > 1% indicates that a LEFT SHIFT is Present. Performed By: #### L 500.4100, L500.3400 #### [facility] [address] [place], [address] Lymphocytes/100 WBC (Bld) 15.1 % Low 19-41 [facility] Comment on above: Performed By: #### L 500.4100, L500.3400 #### [facility] [address] [place], [address] MCH (RBC) [Entitic mass] 27.7 pg Normal 27.0-32.0 [facility] Comment on above: Performed By: #### L 500.4100, L500.3400 #### [facility] [address] [place], [address] MCHC (RBC) [Mass/Vol] 31.8 g/dL Low 32-36 [facility] Comment on above: Performed By: #### L 500.4100, L500.3400 #### [facility] [address] [place], [address] MCV (RBC) [Entitic vol] 87.0 fL Normal 80-94 [facility] Comment on above: Performed By: #### L 500.4100, L500.3400 #### [facility] [address] [place], [address] Monocytes/100 WBC (Bld) 9.0 % Normal 0-10 [facility] Comment on above: Performed By: #### L 500.4100, L500.3400 #### [facility] [address] [place], [address] Neutrophils/100 WBC (Bld) 71.2 % High 47-70 [facility] Comment on above: Performed By: #### L 500.4100, L500.3400 #### [facility] [address] [place], [address] Nucleated RBC (Bld) [#/Vol] 0 10*3/uL Normal 0-5 [facility] Comment on above: Performed By: #### L 500.4100, L500.3400 #### [facility] [address] [place], [address] Platelet mean volume (Bld) [Entitic vol] 10.1 fL Normal 6.2-12.0 [facility] Comment on above: Performed By: #### L 500.4100, L500.3400 #### [facility] [address] [place], [address] Platelets (Bld) [#/Vol] 161 10*3/uL Normal 150-450 [facility] Comment on above: Performed By: #### L 500.4100, L500.3400 #### [facility] [address] [place], [address] RBC (Bld) [#/Vol] 5.17 10*6/uL Normal 4.6-6.2 [facility] Comment on above: Performed By: #### L 500.4100, L500.3400 #### [facility] [address] [place], [address] RDW SD 41.4 fl Normal 35.1-43.9 [facility] Comment on above: Performed By: #### L 500.4100, L500.3400 #### [facility] [address] [place], [address] WBC (Bld) [#/Vol] 6.4 10*3/uL Normal 4.4-11.0 [facility] Comment on above: Performed By: #### L 500.4100, L500.3400 #### [facility] [address] [place], [address] Comprehensive Metabolic Prof [facility] 08-23-2024 Albumin [Mass/Vol] 3.6 g/dL Normal 3.2-5.0 [facility] Comment on above: Performed By: #### L 500.4100, L500.3400 #### [facility] [address] [place], [address] Albumin/Globulin [Mass ratio] 1.3 {ratio} Normal 0.9-2.4 [facility] Comment on above: Performed By: #### L 500.4100, L500.3400 #### [facility] [address] [place], [address] ALK P 92 U/L Normal 45-117 [facility] Comment on above: Performed By: #### L 500.4100, L500.3400 #### [facility] [address] [place], [address] ALT [Catalytic activity/Vol] 29 U/L Normal 16-61 [facility] Comment on above: Performed By: #### L 500.4100, L500.3400 #### [facility] [address] [place], [address] AST [Catalytic activity/Vol] 31 U/L Normal 15-37 [facility] Comment on above: Performed By: #### L 500.4100, L500.3400 #### [facility] [address] [place], [address] Bilirubin [Mass/Vol] 0.80 mg/dL Normal 0.20-1.00 [facility] Comment on above: Result Comment: For patients on eltrombopag therapy, use of Dimension Fenton TBIL is not recommended. Performed By: #### L 500.4100, L500.3400 #### [facility] [address] [place], [address] BUN/CRE 15.6 RATIO Normal 10-20 [facility] Comment on above: Performed By: #### L 500.4100, L500.3400 #### [facility] [address] [place], [address] CA,Total 9.0 mg/dL Normal 8.5-10.1 [facility] Comment on above: Performed By: #### L 500.4100, L500.3400 #### [facility] [address] [place], [address] Chloride [Moles/Vol] 108 mmol/L High 98-107 [facility] Comment on above: Performed By: #### L 500.4100, L500.3400 #### [facility] [address] [place], [address] CO2 [Moles/Vol] 31.0 mmol/L Normal 21.0-32.0 [facility] Comment on above: Performed By: #### L 500.4100, L500.3400 #### [facility] [address] [place], [address] Creatinine [Mass/Vol] 1.09 mg/dL Normal 0.70-1.30 [facility] Comment on above: Result Comment: The validity of the calculated GFR GFRAA in patients over 70 years has not been determined. Clinical correlation is essential. Performed By: #### L 500.4100, L500.3400 #### [facility] [address] [place], [address] EST GFR - AA 86 mL/min Normal >60 [facility] Comment on above: Result Comment: Afri can Thai GFR Calc Performed By: #### L 500.4100, L500.3400 #### [facility] [address] [place], [address] GAP 3 Low 5-15 [facility] Comment on above: Performed By: #### L 500.4100, L500.3400 #### [facility] [address] [place], [address] GFR/1.73 sq M.predicted among non-blacks MDRD (S/P/Bld) [Vol rate/Area] 71 mL/min/{1.73_m2} Normal >60 [facility] Comment on above: Result Comment: Non- GFR Calc Performed By: #### L 500.4100, L500.3400 #### [facility] [address] [place], [address] Globulin (S) [Mass/Vol] 2.8 g/dL Normal 2.2-4.2 [facility] Comment on above: Performed By: #### L 500.4100, L500.3400 #### [facility] [address] [place], [address] Glucose [Mass/Vol] 84 mg/dL Normal 74-106 [facility] Comment on above: Performed By: #### L 500.4100, L500.3400 #### [facility] [address] [place], [address] Potassium [Moles/Vol] 4.3 mmol/L Normal 3.5-5.1 [facility] Comment on above: Performed By: #### L 500.4100, L500.3400 #### [facility] [address] [place], [address] Sodium [Moles/Vol] 142 mmol/L Normal 136-145 [facility] Comment on above: Performed By: #### L 500.4100, L500.3400 #### [facility] [address] [place], [address] T PROT 6.4 g/dL Normal 6.4-8.2 [facility] Comment on above: Performed By: #### L 500.4100, L500.3400 #### [facility] [address] [place], [address] Urea nitrogen [Mass/Vol] 17 mg/dL Normal 7-18 [facility] Comment on above: Performed By: #### L 500.4100, L500.3400 #### [facility] [address] [place], [address] Thyroid Stim Hormone (TSH)on 08-23-2024 TSH 1.040 uIU/mL Normal 0.358-3.74 0 [facility] Comment on above: Performed By: #### L 500.4100, L500.3400 #### [facility] [address] [place], [address] Vitamin D,25 Hydroxyon 08-23 Vitamin D 25-OH 31.3 ng/mL Normal [facility] Comment on above: Result Comment: Felecia min D 25(OH) Status Range Deficiency <20 ng/mL (50nmol/L) Insufficiency 20 - 30 ng/mL (50 - 75 nmol/L) Sufficiency 30 - 100 ng/mL (75 - 250 nmol/L) Toxicity >100 ng/mL (>250 nmol/L) Performed By: #### L 500.4100, L500.3400 #### [facility] [address] [place], [address] Venous Duplex US, Unilateral on 08-04-2024 Venous Duplex US, Unilateral [facility] [address] [place] [address] Venous Duplex US, Unilateral 08/04/24 1309 MR#: [id number] Acct: [id number] Name: TAMRA GUZMAN Rep #: [id number] : 1955 69 From: Peng Ballesteros MD Attending Dr: Dr. Mike Aburto MD Status: REG CLI Ordering Dr: Mike Aburto MD Date: 08/04/24 Location: [facility] Sex: M C Admitted: Reason For Study: SWELLING Right Proximal Left Proximal Right jugular vein is spontaneous, widely Left subclavian vein is spontaneous, widely patent, phasic, with no intraluminal patent, phasic, with no intraluminal echogenicity noted. echogenicity noted. Right subclavian vein is spontaneous, widely patent, phasic, with no intraluminal echogenicity noted. Right Lower Arm Right radial vein is compressible. Right ulnar vein is compressible. Right Arm Right axillary vein is spontaneous, patent, phasic, competent, compressible and demonstrates augmentation. Right brachial vein is compressible. Right cephalic vein is compressible. Right basilic vein is compressible. VL/Venous Duplex US, Unilateral Interpretation Summary Deep veins of the right upper extremity are patent and compressible segmentally. There is no evidence of deep vein thrombosis. Superficial veins of the right upper extremity are patent and compressible segmentally. There is no evidence of superficial vein thrombosis. Ordering Physician: Mike Aburto Chi Referring Physician: Mike Aburto Chi Performed By: Roberto Carpio RVT and Student ??? 08/04/241529 Date Peng Ballesteros MD CC: Dr. Mike Aburto MD Date Dictated: 08/04/241308 Date Transcribed: 08/04/241529 Compressor Operator Adjuster: Signed Normal [facility] CBC W/Diff, Automatedon 07-13 Absolute Lymph 1.05 X10 3/uL Normal 0.83-4.51 [facility] Comment on above: Order Comment: PLEAS E FAX TO [id number] Performed By: #### L 500.4100, L500.3400 #### [facility] [address] [place], [address] Absolute Neut 3.0 X10 3/uL Normal 2.0-7.7 [facility] Comment on above: Order Comment: PLEAS E FAX TO [id number] Performed By: #### L 500.4100, L500.3400 #### [facility] [address] [place], [address] Basophils/100 WBC (Bld) 0.6 % Normal 0-1 [facility] Comment on above: Order Comment: PLEAS E FAX TO [id number] Performed By: #### L 500.4100, L500.3400 #### [facility] [address] [place], [address] Eosinophils/100 WBC (Bld) 3.8 % Normal 0-5 [facility] Comment on above: Order Comment: PLEAS E FAX TO [id number] Performed By: #### L 500.4100, L500.3400 #### [facility] [address] [place], [address] Erythrocyte distribution width (RBC) [Ratio] 12.9 % Normal 11.6-14.6 [facility] Comment on above: Order Comment: PLEAS E FAX TO [id number] Performed By: #### L 500.4100, L500.3400 #### [facility] [address] [place], [address] Hematocrit (Bld) [Volume fraction] 44.7 % Normal 40-54 [facility] Comment on above: Order Comment: PLEAS E FAX TO [id number] Performed By: #### L 500.4100, L500.3400 #### [facility] [address] [place], [address] Hemoglobin (Bld) [Mass/Vol] 14.3 g/dL Normal 13.0-16.5 [facility] Comment on above: Order Comment: PLEAS E FAX TO [id number] Performed By: #### L 500.4100, L500.3400 #### [facility] [address] [place], [address] IG% 0.200 Normal 0.0-0.9 [facility] Comment on above: Order Comment: PLEAS E FAX TO [id number] Result Comment: IG% - Immature Granulocytes (promyelocytes, myelocytes and metamyelocytes) > 1% indicates that a LEFT SHIFT is Present. Performed By: #### L 500.4100, L500.3400 #### [facility] [address] [place], [address] Lymphocytes/100 WBC (Bld) 22.4 % Normal 19-41 [facility] Comment on above: Order Comment: PLEAS E FAX TO [id number] Performed By: #### L 500.4100, L500.3400 #### [facility] [address] [place], [address] MCH (RBC) [Entitic mass] 27.9 pg Normal 27.0-32.0 [facility] Comment on above: Order Comment: PLEAS E FAX TO [id number] Performed By: #### L 500.4100, L500.3400 #### [facility] [address] [place], [address] MCHC (RBC) [Mass/Vol] 32.0 g/dL Normal 32-36 [facility] Comment on above: Order Comment: PLEAS E FAX TO [id number] Performed By: #### L 500.4100, L500.3400 #### [facility] [address] [place], [address] MCV (RBC) [Entitic vol] 87.1 fL Normal 80-94 [facility] Comment on above: Order Comment: PLEAS E FAX TO [id number] Performed By: #### L 500.4100, L500.3400 #### [facility] [address] [place], [address] Monocytes/100 WBC (Bld) 9.6 % Normal 0-10 [facility] Comment on above: Order Comment: PLEAS E FAX TO [id number] Performed By: #### L 500.4100, L500.3400 #### [facility] [address] [place], [address] Neutrophils/100 WBC (Bld) 63.4 % Normal 47-70 [facility] Comment on above: Order Comment: PLEAS E FAX TO [id number] Performed By: #### L 500.4100, L500.3400 #### [facility] [address] [place], [address] Nucleated RBC (Bld) [#/Vol] 0 10*3/uL Normal 0-5 [facility] Comment on above: Order Comment: PLEAS E FAX TO [id number] Performed By: #### L 500.4100, L500.3400 #### [facility] [address] [place], [address] Platelet mean volume (Bld) [Entitic vol] 9.9 fL Normal 6.2-12.0 [facility] Comment on above: Order Comment: PLEAS E FAX TO [id number] Performed By: #### L 500.4100, L500.3400 #### [facility] [address] [place], [address] Platelets (Bld) [#/Vol] 132 10*3/uL Low 150-450 [facility] Comment on above: Order Comment: PLEAS E FAX TO [id number] Performed By: #### L 500.4100, L500.3400 #### [facility] [address] [place], [address] RBC (Bld) [#/Vol] 5.13 10*6/uL Normal 4.6-6.2 [facility] Comment on above: Order Comment: PLEAS E FAX TO [id number] Performed By: #### L 500.4100, L500.3400 #### [facility] [address] [place], [address] RDW SD 40.8 fl Normal 35.1-43.9 [facility] Comment on above: Order Comment: PLEAS E FAX TO [id number] Performed By: #### L 500.4100, L500.3400 #### [facility] [address] [place], [address] WBC (Bld) [#/Vol] 4.7 10*3/uL Normal 4.4-11.0 [facility] Comment on above: Order Comment: PLEAS E FAX TO [id number] Performed By: #### L 500.4100, L500.3400 #### [facility] [address] [place], [address] CBC W/Diff, Automatedon - Absolute Lymph 1.17 X10 3/uL Normal 0.83-4.51 [facility] Comment on above: Order Comment: LIVER LIPID FOR DR PRECIADO CBCD FOR DR VARMA Performed By: #### L 500.3400, L500.4100, L100.0100 #### [facility] [address] [place], [address] Absolute Neut 2.6 X10 3/uL Normal 2.0-7.7 [facility] Comment on above: Order Comment: LIVER LIPID FOR DR PRECIADO CBCD FOR DR VARMA Performed By: #### L 500.3400, L500.4100, L100.0100 #### [facility] [address] [place], [address] Basophils/100 WBC (Bld) 0.9 % Normal 0-1 [facility] Comment on above: Order Comment: LIVER LIPID FOR DR PRECIADO CBCD FOR DR VARMA Performed By: #### L 500.3400, L500.4100, L100.0100 #### [facility] [address] [place], [address] Eosinophils/100 WBC (Bld) 3.0 % Normal 0-5 [facility] Comment on above: Order Comment: LIVER LIPID FOR DR PRECIADO CBCD FOR DR VARMA Performed By: #### L 500.3400, L500.4100, L100.0100 #### [facility] [address] [place], [address] Erythrocyte distribution width (RBC) [Ratio] 13.2 % Normal 11.6-14.6 [facility] Comment on above: Order Comment: LIVER LIPID FOR DR PRECIADO CBCD FOR DR VARMA Performed By: #### L 500.3400, L500.4100, L100.0100 #### [facility] [address] [place], [address] Hematocrit (Bld) [Volume fraction] 41.9 % Normal 40-54 [facility] Comment on above: Order Comment: LIVER LIPID FOR DR PRECIADO CBCD FOR DR VARMA Performed By: #### L 500.3400, L500.4100, L100.0100 #### [facility] [address] [place], [address] Hemoglobin (Bld) [Mass/Vol] 13.5 g/dL Normal 13.0-16.5 [facility] Comment on above: Order Comment: LIVER LIPID FOR DR PRECIADO CBCD FOR DR VARMA Performed By: #### L 500.3400, L500.4100, L100.0100 #### [facility] [address] [place], [address] IG% 0.200 Normal 0.0-0.9 [facility] Comment on above: Order Comment: LIVER LIPID FOR DR PRECIADO CBCD FOR DR VARMA Result Comment: IG% - Immature Granulocytes (promyelocytes, myelocytes and metamyelocytes) > 1% indicates that a LEFT SHIFT is Present. Performed By: #### L 500.3400, L500.4100, L100.0100 #### [facility] [address] [place], [address] Lymphocytes/100 WBC (Bld) 26.8 % Normal 19-41 [facility] Comment on above: Order Comment: LIVER LIPID FOR DR PRECIADO CBCD FOR DR VARMA Performed By: #### L 500.3400, L500.4100, L100.0100 #### [facility] [address] [place], [address] MCH (RBC) [Entitic mass] 28.2 pg Normal 27.0-32.0 [facility] Comment on above: Order Comment: LIVER LIPID FOR DR PRECIADO CBCD FOR DR VARMA Performed By: #### L 500.3400, L500.4100, L100.0100 #### [facility] [address] [place], [address] MCHC (RBC) [Mass/Vol] 32.2 g/dL Normal 32-36 [facility] Comment on above: Order Comment: LIVER LIPID FOR DR PRECIADO CBCD FOR DR VARMA Performed By: #### L 500.3400, L500.4100, L100.0100 #### [facility] [address] [place], [address] MCV (RBC) [Entitic vol] 87.5 fL Normal 80-94 [facility] Comment on above: Order Comment: LIVER LIPID FOR DR PRECIADO CBCD FOR DR VARMA Performed By: #### L 500.3400, L500.4100, L100.0100 #### [facility] [address] [place], [address] Monocytes/100 WBC (Bld) 9.9 % Normal 0-10 [facility] Comment on above: Order Comment: LIVER LIPID FOR DR PRECIADO CBCD FOR DR VARMA Performed By: #### L 500.3400, L500.4100, L100.0100 #### [facility] [address] [place], [address] Neutrophils/100 WBC (Bld) 59.2 % Normal 47-70 [facility] Comment on above: Order Comment: LIVER LIPID FOR DR PRECIADO CBCD FOR DR VARMA Performed By: #### L 500.3400, L500.4100, L100.0100 #### [facility] [address] [place], [address] Nucleated RBC (Bld) [#/Vol] 0 10*3/uL Normal 0-5 [facility] Comment on above: Order Comment: LIVER LIPID FOR DR PRECIADO CBCD FOR DR VARMA Performed By: #### L 500.3400, L500.4100, L100.0100 #### [facility] [address], [address] Platelet mean volume (Bld) [Entitic vol] 10.5 fL Normal 6.2-12.0 [facility] Comment on above: Order Comment: LIVER LIPID FOR DR PRECIADO CBCD FOR DR VARMA Performed By: #### L 500.3400, L500.4100, L100.0100 #### [facility] [address] [place], [address] Platelets (Bld) [#/Vol] 110 10*3/uL Low 150-450 [facility] Comment on above: Order Comment: LIVER LIPID FOR DR PRECIADO CBCD FOR DR VARMA Performed By: #### L 500.3400, L500.4100, L100.0100 #### [facility] [address] [place], [address] RBC (Bld) [#/Vol] 4.79 10*6/uL Normal 4.6-6.2 [facility] Comment on above: Order Comment: LIVER LIPID FOR DR PRECIADO CBCD FOR DR VARMA Performed By: #### L 500.3400, L500.4100, L100.0100 #### [facility] [address] [place], [address] RDW SD 42.7 fl Normal 35.1-43.9 [facility] Comment on above: Order Comment: LIVER LIPID FOR DR PRECIADO CBCD FOR DR VARMA Performed By: #### L 500.3400, L500.4100, L100.0100 #### [facility] [address] [place], [address] WBC (Bld) [#/Vol] 4.4 10*3/uL Normal 4.4-11.0 [facility] Comment on above: Order Comment: LIVER LIPID FOR DR PRECIADO CBCD FOR DR VARMA Performed By: #### L 500.3400, L500.4100, L100.0100 #### [facility] [address] [place], [address] Lipid Profileon 06-23-2024 Cholesterol [Mass/Vol] 124 mg/dL Normal 200 [facility] Comment on above: Order Comment: LIVER LIPID FOR DR PRECIADO CBCD FOR DR VARMA Result Comment: <200 mg/dL Desirable 200-240 mg/dL Borderline >240 mg/dL High Risk Performed By: #### L 500.3400, L500.4100, L100.0100 #### [facility] [address] [place], [address] Cholesterol in HDL [Mass/Vol] 75 mg/dL Normal [facility] Comment on above: Order Comment: LIVER LIPID FOR DR PRECIADO CBCD FOR DR VARMA Result Comment: The drugs N-Acetylcysteine and Metamizole may falsely depress this assay. Reference Range HDL <40 mg/dL Low HDL Cholesterol HDL >or= 60 mg/dL High HDL Cholesterol Performed By: #### L 500.3400, L500.4100, L100.0100 #### [facility] [address] [place], [address] Cholesterol in LDL [Mass/Vol] 41 mg/dL Normal 0-130 [facility] Comment on above: Order Comment: LIVER LIPID FOR DR PRECIADO CBCD FOR DR VARMA Performed By: #### L 500.3400, L500.4100, L100.0100 #### [facility] [address] [place], [address] Cholesterol in VLDL [Mass/Vol] 8 mg/dL Normal 5-40 [facility] Comment on above: Order Comment: LIVER LIPID FOR DR PRECIADO CBCD FOR DR VARMA Performed By: #### L 500.3400, L500.4100, L100.0100 #### [facility] [address] [place], [address] Triglyceride [Mass/Vol] 39 mg/dL Normal [facility] Comment on above: Order Comment: LIVER LIPID FOR DR PRECIADO CBCD FOR DR VARMA Result Comment: The drugs N-Acetylcysteine and Metamizole may falsely depress this assay. Serum Triglycerides Reference Interval Normal <150 mg/dL Borderline high 150 - 199 mg/dL High 200 - 499 mg/dL Very High > or = 500 mg/dL Performed By: #### L 500.3400, L500.4100, L100.0100 #### [facility] [address] [place], [address] Liver Profileon 06-23-2024 Albumin [Mass/Vol] 3.2 g/dL Normal 3.2-5.0 [facility] Comment on above: Order Comment: LIVER LIPID FOR DR PRECIADO CBCD FOR DR VARMA Performed By: #### L 500.3400, L500.4100, L100.0100 #### [facility] [address] [place], [address] ALK P 79 U/L Normal 45-117 [facility] Comment on above: Order Comment: LIVER LIPID FOR DR PRECIADO CBCD FOR DR VARMA Performed By: #### L 500.3400, L500.4100, L100.0100 #### [facility] [address] [place], [address] ALT [Catalytic activity/Vol] 21 U/L Normal 16-61 [facility] Comment on above: Order Comment: LIVER LIPID FOR DR PRECIADO CBCD FOR DR VARMA Performed By: #### L 500.3400, L500.4100, L100.0100 #### [facility] [address] [place], [address] AST [Catalytic activity/Vol] 26 U/L Normal 15-37 [facility] Comment on above: Order Comment: LIVER LIPID FOR DR PRECIADO CBCD FOR DR VARMA Performed By: #### L 500.3400, L500.4100, L100.0100 #### [facility] [address] [place], [address] Bilirubin [Mass/Vol] 0.60 mg/dL Normal 0.20-1.00 [facility] Comment on above: Order Comment: LIVER LIPID FOR DR PRECIADO CBCD FOR DR VARMA Result Comment: For patients on eltrombopag therapy, use of Dimension Fenton TBIL is not recommended. Performed By: #### L 500.3400, L500.4100, L100.0100 #### [facility] [address] [place], [address] Bilirubin.direct [Mass/Vol] 0.24 mg/dL Normal 0.00-0.30 [facility] Comment on above: Order Comment: LIVER LIPID FOR DR PRECIADO CBCD FOR DR VARMA Performed By: #### L 500.3400, L500.4100, L100.0100 #### [facility] [address] [place], [address] Globulin (S) [Mass/Vol] 2.7 g/dL Normal 2.2-4.2 [facility] Comment on above: Order Comment: LIVER LIPID FOR DR PRECIADO CBCD FOR DR VARMA Performed By: #### L 500.3400, L500.4100, L100.0100 #### [facility] [address] [place], [address] T PROT 5.9 g/dL Low 6.4-8.2 [facility] Comment on above: Order Comment: LIVER LIPID FOR DR PRECIADO CBCD FOR DR VARMA Performed By: #### L 500.3400, L500.4100, L100.0100 #### [facility] [address] [place], [address] Basophil percentageOrdered B y: Rogelio Preciado on 11-26-2023 Bilirubin [Mass/Vol] 0.70 mg/dL 0.20-1.00 [facility] Comment on above: For patients on eltr ombopag therapy, use of Dimension Fenton TBIL is not recommended. Cholesterol [Mass/Vol] 146 mg/dL <200 [facility] Comment on above: <200 mg/dL Desirable 200-240 mg/dL Borderline >240 mg/dL High Risk Protein [Mass/Vol] 6.4 g/dL 6.4-8.2 [facility] Triglyceride [Mass/Vol] 55 mg/dL <199 [facility] Comment on above: The drugs N-Acetylcy steine and Metamizole may falsely depress this assay.Serum Triglycerides Reference Interval Normal <150 mg/dL Borderline high 150 - 199 mg/dL High 200 - 499 mg/dL Very High > or = 500 mg/dL Direct bilirubinOrdered By: Rogelio Preciado on 11-26-2023 Bilirubin.direct [Mass/Vol] 0.21 mg/dL 0.00-0.30 [facility] Laboratory - Chemistry and C hemistry - challengeOrdered By: Rogelio Preciado on 11-26-2023 ALP [Catalytic activity/Vol] 96 U/L 45-117 [facility] ALT [Catalytic activity/Vol] 20 U/L 16-61 [facility] Cholesterol in HDL [Mass/Vol] 66 mg/dL >40 [facility] Comment on above: The drugs N-Acetylcy steine and Metamizole may falsely depress this assay. Reference Range HDL <40 mg/dL Low HDL Cholesterol HDL >or= 60 mg/dL High HDL Cholesterol Cholesterol in LDL [Mass/Vol] 69 mg/dL 0-130 [facility] Globulin (S) [Mass/Vol] 3.1 g/dL 2.2-4.2 [facility] No Panel InformationOrdered By: Rogelio Preciado on 11-26-2023 VLDL Cholesterol 11 mg/dL 5-40 [facility] Thin prep Papanicolaou smear with manual screeningOrdered By: Rogelio Preciado on 11-26-2023 Thin prep Papanicolaou smear with manual screening 3.3 g/dL 3.2-5.0 [facility] Thin prep Papanicolaou smear with manual screening 23 U/L 15-37 [facility] No Panel InformationOrdered By: Mike Aburto on 11-06-2023 Miscellaneous Test See comment [facility] Comment on above: TEST RESULTS LIMITS APOE Alzheimer's RiskMethodology: Patient DNA is assayed for the APOE genotype by PCRamplification of a specific region in exon 4 of the APOEgene followed by digestion with restriction enzyme [employer] Iand separation of fragments by polyacrylamide gelelectrophoresis. This approach allows the APOE E2, E3, andE4 alleles to be distinguished. Analytical sensitivity andspecificity are >99.5%. Individuals are interpreted ashaving one of the following genotypes: E2/E2, E3/E3, E4/E4,E2/E3, E2/E4, E3/E4.APO E Genotyping Result: E3/K3Reskgtarnoijpw: Negative for the APOE4 variant that is associated withincreased risk for late onset Alzheimer's disease (AD).E3/E3 is the most common APOE genotype and is notassociated with increased risk for AD. RECOMMENDATIONSGenetic counseling is recommended.Due to the lack of measures to prevent the development ofAD, the ACMG/NSGC guidelines do not recommendpresymptomatic testing, but if it is performed, guidelinesare provided (Kenia ZAVALETA et al. 2011). The APOE Genotyping:Alzheimer's Risk test is not recommended for children.NOTE: This is not a diagnostic test. Results should beinterpreted along with clinical findings and other data.This test evaluates only for the APOE genotype and cannotdetect genetic abnormalities elsewhere in the genome. Itshould be realized that there are possible sources of errorincluding sample misidentification, rare technical errors,trace contamination of PCR reactions, and rare geneticvariants that may interfere with analysis.For inquiries or genetic consultation, please call [facility] .Comment: INFORMATION ABOUT THE APOE GENOTYPE AND ALZHEIMER'S DISEASEAlzheimer's disease (AD) is the most common form ofdementia in the elderly and currently affects more than 5million Americans. It is a progressive neurodegenerativedisorder with brain findings of plaques and neurofibrillarytangles containing beta-amyloid and tau proteinrespectively.The predominant form of AD is late onset (age > 60-65),which can be familial (15-20%) or sporadic. The [id number] increases the risk for late onset AD and maycontribute to the pathology of the disease. This risk isincreased by approximately 2 to 3-fold for individuals withone copy of the APOE4 variant and by approximately [id number] for individuals with two copies of this variant(E4/E4 genotype). The APOE2 variant has some protectiveeffect against development of late onset AD. The lifetimerisk for late onset AD is approximately 10-12% in thegeneral population, though it is higher in women than menand doubles when there is a first degree relative with thisdisorder. The lifetime risk is approximately 9% forindividuals negative for APOE4, and for individuals withE4/E4 may be as high as 25% for males and 45% for females.Among patients with late onset AD, the presence of [id number] lead to earlier development of symptoms.However, APOE4 is neither necessary nor sufficient for thedevelopment of AD. Approximately 30-50% of patients withlate onset AD do not have an APOE4 allele.APOE4 is common, with 25% of the general population havingone copy and 1% having two copies of this variant. Amongpatients with late onset AD, 50-70% are positive for APOE4.The development of late onset AD is influenced by manyfactors other than APOE4 including age, gender, familyhistory, level of education and history of head trauma.Midlife cardiovascular risk factors in individuals withAPOE4 also increase risk for cognitive decline. A number ofgenetic influences in addition to APOE4 have also beenreported and are under investigation.This test was developed and its performance characteristicsdetermined by [employer]. It has not been cleared or approvedby the Food and Drug Administration. The FDA has determinedthat such clearance or approval is not necessary.REFERENCESAljena A et al. Sex modifies the APOE-related risk ofdeveloping Alzheimer disease. Annal Pakdks2435;75(4):563-573Bird TD. Alzheimer Disease Overview. GeneReviews(internet). Davonte CARVER et al., editors. [facility]:Formerly [facility], [place], [place]. Last revised 2014.Kenia JS et al. Genetic counseling and testing forAlzheimer disease: Joint practice guidelines of theBuffalo Psychiatric Centeran College of Medical Genetics and the [facility] of [facility] [employer]ors. Ashley in Bwp4076;13(8)595-601.Mitch GREEN. Apolipoprotein E: Implications for ADneurobiology, epidemiology and risk assessment.Neurobiology of Aging 2011;32:778-790 TESTING PERFORMED AT [facility]. ORIGINAL REPORT ON FILE IN LAB CONTAINS ADDITIONAL TEST SITE INFORMATION. Absolute lymphocyte countOrd ered By: Mitra Martinez on 11-03-2023 Lymphocytes Auto (Unsp spec) [#/Vol] 1.07 10*3/uL 0.83-4.51 [facility] Automated lymphocyte count a s percentage of total leukocytesOrdered By: Mitra Martinez on 11-03-2023 Lymphocytes/100 WBC Auto (Unsp spec) 18.1 % 19-41 [facility] Basophil percentageOrdered B y: Mitra Martinez on 11-03-2023 Basophils/100 WBC (Bld) 0.2 % 0-1 [facility] Bilirubin [Mass/Vol] 0.80 mg/dL 0.20-1.00 [facility] Comment on above: For patients on eltr ombopag therapy, use of Dimension Fenton TBIL is not recommended. Chloride [Moles/Vol] 109 mmol/L 98-107 [facility] Eosinophils/100 WBC (Bld) 1.7 % 0-5 [facility] Glucose [Mass/Vol] 94 mg/dL 74-106 [facility] Hemoglobin (Bld) [Mass/Vol] 14.3 g/dL 13.0-16.5 [facility] Monocytes/100 WBC (Bld) 6.1 % 0-10 [facility] Neutrophils (Bld) [#/Vol] 4.4 10*3/uL 2.0-7.7 [facility] Neutrophils/100 WBC (Bld) 73.7 % 47-70 [facility] Potassium [Moles/Vol] 4.2 mmol/L 3.5-5.1 [facility] Protein [Mass/Vol] 6.0 g/dL 6.4-8.2 [facility] Sodium [Moles/Vol] 140 mmol/L 136-145 [facility] WBC (Bld) [#/Vol] 5.9 10*3/uL 4.4-11.0 [facility] Determination of erythrocyte mean corpuscular volume (MCV)Ordered By: Mitra Martinez on 11-03-2023 MCV (RBC) [Entitic vol] 86.8 fL 80-94 [facility] Erythrocyte distribution wid th ratioOrdered By: Mitra Martinez on 11-03-2023 Erythrocyte distribution width (RBC) [Ratio] 13.4 % 11.6-14.6 [facility] Erythrocyte distribution wid th standard deviationOrdered By: Mitra Martinez on 11-03-2023 Erythrocyte distribution width (RBC) [Entitic vol] 42.6 fL 35.1-43.9 [facility] Hematocrit Auto (Bld) [Volum e fraction]Ordered By: Mitra Martinez on 11-03-2023 Hematocrit (Bld) [Volume fraction] 44.9 % 40-54 [facility] Immature granulocytes/100 WB C Auto (Bld)Ordered By: Mitra Martinez on 11-03-2023 Immature granulocytes/100 WBC (Bld) 0.200 % 0.0-0.9 [facility] Comment on above: IG% - Immature Granu locytes (promyelocytes, myelocytes and metamyelocytes) > 1% indicates that a LEFT SHIFT is Present. Laboratory - Chemistry and C hemistry - challengeOrdered By: Mitra Martinez on 11-03-2023 Albumin/Globulin [Mass ratio] 1.1 {ratio} 0.9-2.4 [facility] ALP [Catalytic activity/Vol] 102 U/L 45-117 [facility] ALT [Catalytic activity/Vol] 19 U/L 16-61 [facility] CO2 [Moles/Vol] 28.0 mmol/L 21.0-32.0 [facility] Globulin (S) [Mass/Vol] 2.9 g/dL 2.2-4.2 [facility] Magnesium [Mass/Vol] 2.1 mg/dL 1.6-2.6 [facility] Urea nitrogen/Creatinine [Mass ratio] 14.5 mg/mg 10-20 [facility] Laboratory - Hematology and Cell countsOrdered By: Mitra Martinez on 11-03-2023 MCH (RBC) [Entitic mass] 27.7 pg 27.0-32.0 [facility] MCHC (RBC) [Mass/Vol] 31.8 g/dL 32-36 [facility] Nucleated RBC/100 WBC (Bld) [Ratio] 0 % 0-5 [facility] Platelets (Bld) [#/Vol] 159 10*3/uL 150-450 [facility] No Panel InformationOrdered By: Mitra Martinez on 11-03-2023 Estimated Creatinine Clearance Calc 90.90 ml/min [facility] Estimated GFR (MDRD) Amer 118 mL/min >60 [facility] Comment on above: GFR Calc Estimated GFR (MDRD) Non-Af Amer 98 mL/min >60 [facility] Comment on above: Non- GFR Calc Platelet mean volume Fred-Ec ker (Bld) [Entitic vol]Ordered By: Mitra Martinez on 11-03-2023 Platelet mean volume (Bld) [Entitic vol] 9.5 fL 6.2-12.0 [facility] RBC Auto (Bld) [#/Vol]Ordere d By: iMtra Martinez on 11-03-2023 RBC (Bld) [#/Vol] 5.17 10*6/uL 4.6-6.2 [facility] Serum or plasma calcium mamie urement (mass/volume)Ordered By: Mitra Martinez on 11-03-2023 Calcium [Mass/Vol] 8.9 mg/dL 8.5-10.1 [facility] Serum or plasma creatinine m easurement (mass/volume)Ordered By: Mitra Martinez on 11-03-2023 Creatinine [Mass/Vol] 0.83 mg/dL 0.70-1.30 [facility] Comment on above: The validity of the calculated GFR & GFRAA in patients over 70 years has not been determined. Clinical correlation is essential. Serum or plasma thyroid stim ulating hormone (TSH) measurement (units/volume)Ordered By: Mitar Martinez on 11-03-2023 TSH Qn 0.39 uIU/mL 0.358-3.74 [facility] Serum or plasma urea nitroge n measurement (mass/volume)Ordered By: Mitra Martinez on 11-03-2023 Urea nitrogen [Mass/Vol] 12 mg/dL 7-18 [facility] Thin prep Papanicolaou smear with manual screeningOrdered By: Mitra Martinez on 11-03-2023 Thin prep Papanicolaou smear with manual screening 3.1 g/dL 3.2-5.0 [facility] Thin prep Papanicolaou smear with manual screening 18 U/L 15-37 [facility] Thin prep Papanicolaou smear with manual screening 3 5-15 [facility] Absolute lymphocyte countOrd ered By: Arik Cade on 11-02-2023 Lymphocytes Auto (Unsp spec) [#/Vol] 1.95 10*3/uL 0.83-4.51 [facility] Automated lymphocyte count a s percentage of total leukocytesOrdered By: Arik Cade on 11-02-2023 Lymphocytes/100 WBC Auto (Unsp spec) 27.7 % 19-41 [facility] Basophil percentageOrdered B y: Arik Cade on 11-02-2023 Basophils/100 WBC (Bld) 0.4 % 0-1 [facility] Chloride [Moles/Vol] 107 mmol/L 98-107 [facility] Eosinophils/100 WBC (Bld) 2.6 % 0-5 [facility] Glucose [Mass/Vol] 128 mg/dL 74-106 [facility] Comment on above: Fasting Glucose resu lt greater than or equal to 126 mg/dL suggests DIABETES MELLITUS per A.D.A. criteria. Hemoglobin (Bld) [Mass/Vol] 15.0 g/dL 13.0-16.5 [facility] Monocytes/100 WBC (Bld) 8.4 % 0-10 [facility] Neutrophils (Bld) [#/Vol] 4.3 10*3/uL 2.0-7.7 [facility] Neutrophils/100 WBC (Bld) 60.5 % 47-70 [facility] Potassium [Moles/Vol] 3.5 mmol/L 3.5-5.1 [facility] Sodium [Moles/Vol] 140 mmol/L 136-145 [facility] WBC (Bld) [#/Vol] 7.0 10*3/uL 4.4-11.0 [facility] Determination of erythrocyte mean corpuscular volume (MCV)Ordered By: Arik Cade on 11-02-2023 MCV (RBC) [Entitic vol] 86.5 fL 80-94 [facility] Erythrocyte distribution wid th ratioOrdered By: Arik Cade on 11-02-2023 Erythrocyte distribution width (RBC) [Ratio] 13.4 % 11.6-14.6 [facility] Erythrocyte distribution wid th standard deviationOrdered By: Arik Cade on 11-02-2023 Erythrocyte distribution width (RBC) [Entitic vol] 42.6 fL 35.1-43.9 [facility] Hematocrit Auto (Bld) [Volum e fraction]Ordered By: Arik Cade on 11-02-2023 Hematocrit (Bld) [Volume fraction] 45.4 % 40-54 [facility] Immature granulocytes/100 WB C Auto (Bld)Ordered By: Arik Cade on 11-02-2023 Immature granulocytes/100 WBC (Bld) 0.400 % 0.0-0.9 [facility] Comment on above: IG% - Immature Granu locytes (promyelocytes, myelocytes and metamyelocytes) > 1% indicates that a LEFT SHIFT is Present. Laboratory - Chemistry and C hemistry - challengeOrdered By: Arik Cade on 11-02-2023 CO2 [Moles/Vol] 25.0 mmol/L 21.0-32.0 [facility] Urea nitrogen/Creatinine [Mass ratio] 17.1 mg/mg 10-20 [facility] Laboratory - Hematology and Cell countsOrdered By: Arik Cade on 11-02-2023 MCH (RBC) [Entitic mass] 28.6 pg 27.0-32.0 [facility] MCHC (RBC) [Mass/Vol] 33.0 g/dL 32-36 [facility] Nucleated RBC/100 WBC (Bld) [Ratio] 0 % 0-5 [facility] Platelets (Bld) [#/Vol] 189 10*3/uL 150-450 [facility] No Panel InformationOrdered By: Arik Cade on 11-02-2023 Estimated Creatinine Clearance Calc 80.26 ml/min [facility] Estimated GFR (MDRD) Amer 103 mL/min >60 [facility] Comment on above: GFR Calc Estimated GFR (MDRD) Non-Af Amer 85 mL/min >60 [facility] Comment on above: Non- GFR Calc Platelet mean volume Fred-Ec ker (Bld) [Entitic vol]Ordered By: Arik Cade on 11-02-2023 Platelet mean volume (Bld) [Entitic vol] 9.7 fL 6.2-12.0 [facility] RBC Auto (Bld) [#/Vol]Ordere d By: Arik Cade on 11-02-2023 RBC (Bld) [#/Vol] 5.25 10*6/uL 4.6-6.2 [facility] Serum or plasma calcium mamie urement (mass/volume)Ordered By: Arik Cade on 11-02-2023 Calcium [Mass/Vol] 8.9 mg/dL 8.5-10.1 [facility] Serum or plasma creatinine m easurement (mass/volume)Ordered By: Arik Cade on 11-02-2023 Creatinine [Mass/Vol] 0.94 mg/dL 0.70-1.30 [facility] Comment on above: The validity of the calculated GFR & GFRAA in patients over 70 years has not been determined. Clinical correlation is essential. Serum or plasma urea nitroge n measurement (mass/volume)Ordered By: Arik Cade on 11-02-2023 Urea nitrogen [Mass/Vol] 16 mg/dL 7-18 [facility] Thin prep Papanicolaou smear with manual screeningOrdered By: Arik Cade on 11-02-2023 Thin prep Papanicolaou smear with manual screening 114 mg/dL 74-106 [facility] Comment on above: MANAGEMENT OF PATIEN T CARE PER NURSING PROTOCOL Thin prep Papanicolaou smear with manual screening 8 5-15 [facility] Absolute lymphocyte countOrd ered By: Mike Aburto on 08-20-2023 Lymphocytes Auto (Unsp spec) [#/Vol] 1.04 10*3/uL 0.83-4.51 [facility] Basophil percentageOrdered B y: Mike Aburto on 08-20-2023 Basophils/100 WBC (Bld) 0.4 % 0-1 [facility] Bilirubin [Mass/Vol] 0.80 mg/dL 0.20-1.00 [facility] Comment on above: For patients on eltr ombopag therapy, use of Dimension Fenton TBIL is not recommended. Chloride [Moles/Vol] 106 mmol/L 98-107 [facility] Eosinophils/100 WBC (Bld) 0.6 % 0-5 [facility] Glucose [Mass/Vol] 106 mg/dL 74-106 [facility] Comment on above: Fasting Glucose resu lt from 100 to 125 mg/dL suggests IMPAIRED HOMEOSTASIS per A.D.A. criteria. Neutrophils (Bld) [#/Vol] 6.8 10*3/uL 2.0-7.7 [facility] Neutrophils/100 WBC (Bld) 81.1 % 47-70 [facility] Potassium [Moles/Vol] 4.6 mmol/L 3.5-5.1 [facility] Protein [Mass/Vol] 6.3 g/dL 6.4-8.2 [facility] Sodium [Moles/Vol] 140 mmol/L 136-145 [facility] WBC (Bld) [#/Vol] 8.4 10*3/uL 4.4-11.0 [facility] Blood erythrocytes count (nu mber/volume)Ordered By: Mike Aburto on 08-20-2023 RBC (Bld) [#/Vol] 5.84 10*6/uL 4.6-6.2 [facility] Blood hemoglobin measurement (mass/volume)Ordered By: Mike Aburto on 08-20-2023 Hemoglobin (Bld) [Mass/Vol] 16.5 g/dL 13.0-16.5 [facility] Blood lymphocytes/100 leukoc ytesOrdered By: Mike Aburto on 08-20-2023 Lymphocytes/100 WBC (Bld) 12.5 % 19-41 [facility] Blood monocytes/100 leukocyt esOrdered By: Mike Aburto on 08-20-2023 Monocytes/100 WBC (Bld) 4.8 % 0-10 [facility] Blood platelet mean volumeOr dered By: Mike Aburto on 08-20-2023 Platelet mean volume (Bld) [Entitic vol] 9.4 fL 6.2-12.0 [facility] Determination of erythrocyte mean corpuscular volume (MCV)Ordered By: Mike Aburto on 08-20-2023 MCV (RBC) [Entitic vol] 88.2 fL 80-94 [facility] Hematocrit Auto (Bld) [Volum e fraction]Ordered By: Mike Aburto on 08-20-2023 Hematocrit (Bld) [Volume fraction] 51.5 % 40-54 [facility] Laboratory - Chemistry and C hemistry - challengeOrdered By: Mike Aburto on 08-20-2023 ALP [Catalytic activity/Vol] 92 U/L 45-117 [facility] ALT [Catalytic activity/Vol] 22 U/L 16-61 [facility] CO2 [Moles/Vol] 34.0 mmol/L 21.0-32.0 [facility] Globulin (S) [Mass/Vol] 3.2 g/dL 2.2-4.2 [facility] Urea nitrogen/Creatinine [Mass ratio] 18.0 mg/mg 10-20 [facility] Laboratory - Hematology and Cell countsOrdered By: Mike Aburto on 08-20-2023 Erythrocyte distribution width (RBC) [Entitic vol] 44.0 fL 35.1-43.9 [facility] Erythrocyte distribution width (RBC) [Ratio] 13.7 % 11.6-14.6 [facility] Immature granulocytes/100 WBC (Bld) 0.600 % 0.0-0.9 [facility] Comment on above: IG% - Immature Granu locytes (promyelocytes, myelocytes and metamyelocytes) > 1% indicates that a LEFT SHIFT is Present. MCH (RBC) [Entitic mass] 28.3 pg 27.0-32.0 [facility] Nucleated RBC/100 WBC (Bld) [Ratio] 0 % 0-5 [facility] MCHC Auto (RBC) [Mass/Vol]Or dered By: Mike Aburto on 08-20-2023 MCHC (RBC) [Mass/Vol] 32.0 g/dL 32-36 [facility] No Panel InformationOrdered By: Mike Aburto on 08-20-2023 Estimated GFR (MDRD) Amer 75 mL/min >60 [facility] Comment on above: GFR Calc Estimated GFR (MDRD) Non-Af Amer 62 mL/min >60 [facility] Comment on above: Non- GFR Calc Prostate Specific Antigen Screen 2.62 ng/mL 0.00-4.00 [facility] Comment on above: This test was perfor med using the TPSA assay method for the[employer]endDiv[employer] chemistry system. Values obtained with differentassay methods cannot be used interchangably.When changing PSA assays in the course of monitoring apatient, additional sequential testing should be carriedout to confirm baseline values. Thyroid Stimulating Hormone (TSH) 0.52 uIU/mL 0.358-3.74 [facility] Vitamin D 25-Hydroxy 54.7 ng/mL [facility] Comment on above: Vitamin D 25(OH) Sta tus Range Deficiency <20 ng/mL (50nmol/L) Insufficiency 20 - 30 ng/mL (50 - 75 nmol/L) Sufficiency 30 - 100 ng/mL (75 - 250 nmol/L) Toxicity >100 ng/mL (>250 nmol/L) Platelets bldOrdered By: Mike Aburto on 08-20-2023 Platelets (Bld) [#/Vol] 172 10*3/uL 150-450 [facility] Serum or plasma albumin mamie urement (mass/volume)Ordered By: Mike Aburto on 08-20-2023 Albumin [Mass/Vol] 3.1 g/dL 3.2-5.0 [facility] Serum or plasma albumin/glob ulin mass ratioOrdered By: Mike Aburto on 08-20-2023 Albumin/Globulin [Mass ratio] 1.0 {ratio} 0.9-2.4 [facility] Serum or plasma calcium mamie urement (mass/volume)Ordered By: Mike Aburto on 08-20-2023 Calcium [Mass/Vol] 8.7 mg/dL 8.5-10.1 [facility] Serum or plasma creatinine m easurement (mass/volume)Ordered By: Mike Aburto on 08-20-2023 Creatinine [Mass/Vol] 1.22 mg/dL 0.70-1.30 [facility] Comment on above: The validity of the calculated GFR & GFRAA in patients over 70 years has not been determined. Clinical correlation is essential. Serum or plasma urea nitroge n measurement (mass/volume)Ordered By: Mike Aburto on 08-20-2023 Urea nitrogen [Mass/Vol] 22 mg/dL 7-18 [facility] Thin prep Papanicolaou smear with manual screeningOrdered By: Mike Aburto on 08-20-2023 Thin prep Papanicolaou smear with manual screening 15 U/L 15-37 [facility] Thin prep Papanicolaou smear with manual screening 0 5-15 [facility] Basophil percentageon 2022 Bilirubin [Mass/Vol] 0.60 mg/dL 0.20-1.00 [facility] Comment on above: For patients on eltr ombopag therapy, use of Dimension [place] TBIL is not recommended. Chloride [Moles/Vol] 105 mmol/L 98-107 [facility] Glucose [Mass/Vol] 85 mg/dL 74-106 [facility] Potassium [Moles/Vol] 4.0 mmol/L 3.5-5.1 [facility] Protein [Mass/Vol] 6.4 g/dL 6.4-8.2 [facility] Sodium [Moles/Vol] 139 mmol/L 136-145 [facility] WBC (Bld) [#/Vol] 7.0 10*3/uL 4.4-11.0 [facility] Blood erythrocytes count (nu mber/volume)on 07-21-2023 RBC (Bld) [#/Vol] 5.28 10*6/uL 4.6-6.2 [facility] Blood hemoglobin measurement (mass/volume)on 07-21-2023 Hemoglobin (Bld) [Mass/Vol] 14.8 g/dL 13.0-16.5 [facility] Blood platelet mean volumeon 07-21-2023 Platelet mean volume (Bld) [Entitic vol] 10.3 fL 6.2-12.0 [facility] Determination of erythrocyte mean corpuscular volume (MCV)on 07-21-2023 MCV (RBC) [Entitic vol] 90.0 fL 80-94 [facility] Hematocrit Auto (Bld) [Volum e fraction]on 07-21-2023 Hematocrit (Bld) [Volume fraction] 47.5 % 40-54 [facility] INR in Blood by Coagulation assayon 07-21-2023 INR Coag (Bld) [Relative time] 0.9 {INR} [facility] Laboratory - Chemistry and C hemistry - challengeon 07-21-2023 ALP [Catalytic activity/Vol] 93 U/L 45-117 [facility] ALT [Catalytic activity/Vol] 24 U/L 16-61 [facility] CO2 [Moles/Vol] 31.0 mmol/L 21.0-32.0 [facility] Globulin (S) [Mass/Vol] 3.0 g/dL 2.2-4.2 [facility] Urea nitrogen/Creatinine [Mass ratio] 19.4 mg/mg 10-20 [facility] Laboratory - Coagulationon 1 aPTT Coag (Bld) [Time] 27.0 s 24.1-36.2 [facility] PT Coag (PPP) [Time] 12.3 s 11.7-14.9 [facility] Laboratory - Hematology and Cell countson 07-21-2023 Erythrocyte distribution width (RBC) [Entitic vol] 44.7 fL 35.1-43.9 [facility] Erythrocyte distribution width (RBC) [Ratio] 13.6 % 11.6-14.6 [facility] MCH (RBC) [Entitic mass] 28.0 pg 27.0-32.0 [facility] MCHC Auto (RBC) [Mass/Vol]on 07-21-2023 MCHC (RBC) [Mass/Vol] 31.2 g/dL 32-36 [facility] No Panel Informationon 07-21 Estimated GFR (MDRD) Amer 92 mL/min >60 [facility] Comment on above: GFR Calc Estimated GFR (MDRD) Non-Af Amer 76 mL/min >60 [facility] Comment on above: Non- GFR Calc Platelets bldon 07-21-2023 Platelets (Bld) [#/Vol] 168 10*3/uL 150-450 [facility] Serum or plasma albumin mamie urement (mass/volume)on 07-21-2023 Albumin [Mass/Vol] 3.4 g/dL 3.2-5.0 [facility] Serum or plasma albumin/glob ulin mass ratioon 07-21-2023 Albumin/Globulin [Mass ratio] 1.1 {ratio} 0.9-2.4 [facility] Serum or plasma calcium mamie urement (mass/volume)on 07-21-2023 Calcium [Mass/Vol] 8.9 mg/dL 8.5-10.1 [facility] Serum or plasma creatinine m easurement (mass/volume)on 07-21-2023 Creatinine [Mass/Vol] 1.03 mg/dL 0.70-1.30 [facility] Comment on above: The validity of the calculated GFR & GFRAA in patients over 70 years has not been determined. Clinical correlation is essential. Serum or plasma urea nitroge n measurement (mass/volume)on 07-21-2023 Urea nitrogen [Mass/Vol] 20 mg/dL 7-18 [facility] Thin prep Papanicolaou smear with manual screeningon 07-21-2023 Thin prep Papanicolaou smear with manual screening 17 U/L 15-37 [facility] Thin prep Papanicolaou smear with manual screening 3 5-15 [facility] Bacteria identified Cx Nom ( Wound)Ordered By: Mike Aburto on 04-21-2023 Wound Culture Presumptive E. coli [facility] Gram stain for investigation of transfusion reactionOrdered By: Mike Aburto on 04-21-2023 Microscopic observation Gram stain Nom (Unsp spec) [facility] No Panel InformationOrdered By: Mike Aburto on 04-21-2023 Methicillin-Resist S.aureus DNA PCR Negative Negative [facility] Staphylococcus aureus DNA de tection by probe and target amplification methodOrdered By: Mike Aburto on 04-21-2023 S. aureus DNA ZACHARY+probe Ql (Unsp spec) Negative Negative [facility] CNOVon 04-19-2023 CNOV Office Visit (UCWSTR ) -- NAM GUZMAN ([id number]) 1955 M Date Time Provider Department 04/19/23 11:45 AM JEFFREY BETHEA WSTR During your visit today, we recorded the following information about you: Temperature Pulse Respiration Blood pressure 97.5 degrees 78/minute 16/minute 122/80 Weight 91.2 kg Jeffrey Bethea APRN.CNP 04/19/2023 11:26 AM Signed ASSESSMENT/PLAN: 1. Skin infection - ICD9: 686.9, ICD10: L08.9 - Begin treatment with Cephalaxin (Keflex) - No lymphangetic streaking, this was defined for patient to watch for and to seek medical care immediately if appears - Follow up for recheck in three days if persisting Urgent f/u for worsening. - CEPHALEXIN 500 MG CAPSULE Jeffrey Bethea APRN.NAMITA 04/19/2023 11:31 AM Signed Subjective HPI HPI Nam Guzman is a 68 year old male who presents today for CC of right leg skin tear, now red. This started 1 week ago. Has tried nothing for relief. Symptoms are worsened by nothing. Denies diabetes. Patient not known to [facility], denies renal/hepatic disease. .Patient presents with: infected wound on right diana : X 1 week History reviewed. No pertinent past medical history. No past surgical history on file. ALLERGIES Patient has no known allergies. MEDICATIONS amLODIPine (NORVASC) 5 mg tablet Take 5 mg by mouth once daily. donepezil (ARICEPT) 5 mg tablet TAKE 1 TABLET BY MOUTH WITH SUPPER famotidine (PEPCID) 40 mg tablet Take 40 mg by mouth once daily. memantine (NAMENDA) 10 mg tablet Take 10 mg by mouth twice daily. predniSONE (DELTASONE) 1 mg tablet Take 4 mg by mouth once daily. galantamine ER (RAZADYNE) 8 mg 24 hr capsule cephALEXin (KEFLEX) 500 mg capsule Take 1 capsule by mouth three times daily for 7 days. No family history on file. Social History Tobacco Use Smoking status: Never Smokeless tobacco: Never ROS Objective Blood pressure 122/80, pulse 78, temperature 36.4 ?C (97.5 ?F), temperature source Tympanic, resp. rate 16, weight 91.2 kg (201 lb). Physical Exam Constitutional: General: He is not in acute distress. Appearance: He is not toxic-appearing or diaphoretic. HENT: Head: Normocephalic and atraumatic. Pulmonary: Effort: Pulmonary effort is normal. No accessory muscle usage or respiratory distress. Skin: Neurological: Mental Status: He is alert and oriented to person, place, and time. ASSESSMENT/PLAN: 1. Skin infection - ICD9: 686.9, ICD10: L08.9 - Begin treatment with Cephalaxin (Keflex) - No lymphangetic streaking, this was defined for patient to watch for and to seek medical care immediately if appears - Follow up for recheck in three days if persisting Urgent f/u for worsening. - CEPHALEXIN 500 MG CAPSULE Jeffrey Bethea APRN.NAMITA Bethea APRN.CNP 04/19/2023 11:32 AM Signed Addended by: JEFFREY BETHEA on: 04/19/2023 11:32 AM Modules accepted: Orders Allergies As of Date: 04/19/2023 (No Known Allergies) Date Reviewed: 04/19/2023 Reviewed by: Zuly Theodore LPN - Fully Assessed Reason for Visit: infected wound on right diana [Other] Cmt: X 1 week Primary Visit Diagnosis:Skin infection [L08.9] Order(s):cephALEXin (KEFLEX) 500 mg capsuleTake 1 capsule by mouth three times daily for 7 days.Disp: 21 capsuleRfl: 0 mupirocin (BACTROBAN) 2 % ointmentApply to affected area three times daily for 10 days.Disp: 22 gRfl: 0 Prescriptions as of 04/19/2023 - amLODIPine (NORVASC) 5 mg tablet Take 5 mg by mouth once daily. - donepezil (ARICEPT) 5 mg tablet TAKE 1 TABLET BY MOUTH WITH SUPPER - famotidine (PEPCID) 40 mg tablet Take 40 mg by mouth once daily. - memantine (NAMENDA) 10 mg tablet Take 10 mg by mouth twice daily. - predniSONE (DELTASONE) 1 mg tablet Take 4 mg by mouth once daily. - galantamine ER (RAZADYNE) 8 mg 24 hr capsule - cephALEXin (KEFLEX) 500 mg capsule Take 1 capsule by mouth three times daily for 7 days. - mupirocin (BACTROBAN) 2 % ointment Apply to affected area three times daily for 10 days. Problem List As Of Date: 04/19/2023 (None) Other instructions from your clinician: ASSESSMENT/PLAN: 1. Skin infection - ICD9: 686.9, ICD10: L08.9 - Begin treatment with Cephalaxin (Keflex) - No lymphangetic streaking, this was defined for patient to watch for and to seek medical care immediately if appears - Follow up for recheck in three days if persisting Urgent f/u for worsening. - CEPHALEXIN 500 MG CAPSULE Prescriptions ordered this encounter Disp Refills Start End CEPHALEXIN 500 MG CAPSULE 21 c* 0 04/19/2023 04/26/2023 Route: ORAL Sig: Take 1 capsule by mouth three times daily for 7 days. MUPIROCIN 2 % TOPICAL OINTMENT 22 g 0 04/19/2023 04/29/2023 Route: TOPICAL Sig: Apply to affected area three times daily for 10 days. Encounter Status:Closed by JEFFREY BETHEA on 04/19/[address] [facility] Danielle Basophil percentageOrdered B y: Mike Aburto on 03-11-2023 Basophil percentage < 0.9 mg/dL 0.70-1.30 [facility] No Panel InformationOrdered By: Mike Aburto on 03-11-2023 Bedside Estimated GFR (eGFR) > 60.0000 mL/min >60 [facility] Vital Signs Date Time Vital Sign Value Performing Clinician Facility 12-15-2024 11:10-0500 Body temperature 98.01 [degF] Robby Fair PA-C Work Phone: [facility] 12-15-2024 11:10-0500 Diastolic blood pressure 88 mm[Hg] Robby Fair PA-C Work Phone: [facility] 12-15-2024 11:10-0500 Heart rate 81 /min Robby Fair PA-C Work Phone: [facility] 12-15-2024 11:10-0500 SaO2% (BldA) [Mass fraction] 98 % Robby Fair PA-C Work Phone: [facility] 12-15-2024 11:10-0500 Systolic blood pressure 118 mm[Hg] Robby Fair PA-C Work Phone: [facility] 12-02-2024 12:31-0500 Body temperature 98.1 [degF] Robby Fair PA-C Work Phone: [facility] 12-02-2024 12:31-0500 Diastolic blood pressure 98 mm[Hg] Robby Fair PA-C Work Phone: [facility] 12-02-2024 12:31-0500 Heart rate 84 /min Robby Fair PA-C Work Phone: [facility] 12-02-2024 12:31-0500 SaO2% (BldA) [Mass fraction] 97 % Robby Castrejon PA-C Work Phone: [facility] 12-02-2024 12:31-0500 Systolic blood pressure 139 mm[Hg] Robby Castrejon PA-C Work Phone: [facility] 11-19-2024 11:59-0500 Body temperature 97.7 [degF] Andrew Guzman MD Work Phone: [facility] 11-19-2024 11:59-0500 Diastolic blood pressure 73 mm[Hg] Andrew Guzman MD Work Phone: [facility] 11-19-2024 11:59-0500 Heart rate 61 /min Andrew Guzman MD Work Phone: [facility] 11-19-2024 11:59-0500 Respiratory rate 16 /min Andrew Guzman MD Work Phone: [facility] 11-19-2024 11:59-0500 SaO2% (BldA) [Mass fraction] 91 % Andrew Guzman MD Work Phone: [facility] 11-19-2024 11:59-0500 Systolic blood pressure 126 mm[Hg] Andrew Guzman MD Work Phone: [facility] 11-18-2024 09:04-0500 Body height 182.9 cm Andrew Guzman MD Work Phone: [facility] 11-18-2024 09:04-0500 Body mass index (BMI) [Ratio] 27.51 kg/m2 Andrew Guzman MD Work Phone: [facility] 11-18-2024 09:04-0500 Body weight 92 kg Andrew Guzman MD Work Phone: [facility] 10-08-2024 14:10-0500 Diastolic blood pressure 83 mm[Hg] Andrew Guzman MD Work Phone: [facility] 10-08-2024 14:10-0500 Heart rate 88 /min Andrew Guzman MD Work Phone: [facility] 10-08-2024 14:10-0500 SaO2% (BldA) [Mass fraction] 97 % Andrew Guzman MD Work Phone: [facility] 10-08-2024 14:10-0500 Systolic blood pressure 125 mm[Hg] Andrew Guzman MD Work Phone: [facility] 09-30-2024 09:08-0500 Diastolic blood pressure 83 mm[Hg] Ahmet Frances PA-C Work Phone: [facility] 09-30-2024 09:08-0500 Heart rate 78 /min Ahmet Frances PA-C Work Phone: [facility] 09-30-2024 09:08-0500 SaO2% (BldA) [Mass fraction] 95 % Ahmet Frances PA-C Work Phone: [facility] 09-30-2024 09:08-0500 Systolic blood pressure 127 mm[Hg] Ahmet Frances PA-C Work Phone: [facility] 11-14-2023 11:04-0500 Body height 182.[address] Mike Aburto Work Phone: [facility] 11-14-2023 11:04-0500 Body mass index (BMI) [Ratio] 26.7 kg/m2 Dr. Mike Aburto Work Phone: [facility] 11-14-2023 11:04-0500 Body weight 89.[address] Mike Aburto Work Phone: [facility] 11-14-2023 11:04-0500 Diastolic blood pressure 87 mm[Hg] Dr. Mike Aburto Work Phone: [facility] 11-14-2023 11:04-0500 Heart rate 67 /min Dr. Mike Aburto Work Phone: [facility] 11-14-2023 11:04-0500 Respiratory rate 18 /min Dr. Mike Aburto Work Phone: [facility] 11-14-2023 11:04-0500 Systolic blood pressure 135 mm[Hg] Dr. Mike Aburto Work Phone: 7(874)649-000961 [place] [address] 11-03-2023 14:06-0500 Body temperature 98.1 [degF] Dr. Mike Aburto Work Phone: [facility] 11-03-2023 14:06-0500 Diastolic blood pressure 94 mm[Hg] Dr. Mike Aburto Work Phone: 8(723)623-173532 [address] 11-03-2023 14:06-0500 Heart rate 69 /min Dr. Mike Aburto Work Phone: 3(486)084-901350 [place] [address] 11-03-2023 14:06-0500 Respiratory rate 18 /min Dr. Mike Aburto Work Phone: 1(450)043-578661 [place] [address] 11-03-2023 14:06-0500 SaO2% (BldA) [Mass fraction] 18 % Dr. Mike Aburto Work Phone: 9(180)560-771561 [place] [address] 11-03-2023 14:06-0500 Systolic blood pressure 154 mm[Hg] Dr. Mike Aburto Work Phone: 2(243)774-919832 [address] 11-02-2023 11:14-0500 Body height 182.[address] Mike Aburto Work Phone: 8(924)855-408261 [place] [address] 11-02-2023 11:14-0500 Body mass index (BMI) [Ratio] 27.2 kg/m2 Dr. Mike Aburto Work Phone: 3(567)967-966261 [place] [address] 11-02-2023 11:14-0500 Body weight 91.[address] Mike Aburto Work Phone: 8(916)266-288161 [place] [address] 11-02-2023 09:00-0500 Respiratory rate 20 /min Dr. Mike Aburto Work Phone: 0(751)746-277561 [place] [address] 11-02-2023 06:39-0500 Diastolic blood pressure 84 mm[Hg] Dr. Mike Aburto Work Phone: 8(482)662-756761 [place] [address] 11-02-2023 06:39-0500 Heart rate 67 /min Dr. Mike Aburto Work Phone: 4(811)792-365261 [place] [address] 11-02-2023 06:39-0500 SaO2% (BldA) [Mass fraction] 94 % Dr. Mike Aburto Work Phone: 7(814)636-890461 [place] [address] 11-02-2023 06:39-0500 Systolic blood pressure 133 mm[Hg] Dr. Mike Aburto Work Phone: 1(289)368-282950 [place] [address] 11-02-2023 05:27-0500 Body height 182.[address] Mike Aburto Work Phone: 6(053)274-568150 [place] [address] 11-02-2023 05:27-0500 Body mass index (BMI) [Ratio] 26.9 kg/m2 Dr. Mike Aburto Work Phone: 4(944)389-067250 [place] [address] 11-02-2023 05:27-0500 Body temperature 98.1 [degF] Dr. Mike Aburto Work Phone: 5(938)661-467650 [place] [address] 11-02-2023 05:27-0500 Body weight 89.[address] Mike Aburto Work Phone: 3(039)352-429850 [place] [address] 08-13-2023 11:08-0400 Body height 182.[address] Mike Aburto Work Phone: 7(335)036-507650 [place] [address] 08-13-2023 11:08-0400 Body mass index (BMI) [Ratio] 27.1 kg/m2 Dr. Mike Aburto Work Phone: 3(869)216-637650 [place] [address] 08-13-2023 11:08-0400 Body weight 90.[address] Mike Aburto Work Phone: 2(120)790-154450 [place] [address] 08-13-2023 11:08-0400 Diastolic blood pressure 86 mm[Hg] Dr. Mike Aburto Work Phone: 1(860)445-458550 [place] [address] 08-13-2023 11:08-0400 Heart rate 78 /min Dr. Mike Aburto Work Phone: 9(476)719-333750 [place] [address] 08-13-2023 11:08-0400 Respiratory rate 16 /min Dr. Mike Aburto Work Phone: 7(984)335-639750 [place] [address] 08-13-2023 11:08-0400 SaO2% (BldA) [Mass fraction] 96 % Dr. Mike Aburto Work Phone: [facility] 08-13-2023 11:08-0400 Systolic blood pressure 149 mm[Hg] Dr. Mike Aburto Work Phone: [facility] 05-27-2023 09:49-0400 Body mass index (BMI) [Ratio] 27.1 kg/m2 [facility] 05-27-2023 09:49-0400 Body temperature 97.2 [degF] [facility] 05-27-2023 09:49-0400 Diastolic blood pressure 89 mm[Hg] [facility] 05-27-2023 09:49-0400 Heart rate 88 /min [facility] 05-27-2023 09:49-0400 Respiratory rate 16 /min [facility] 05-27-2023 09:49-0400 Systolic blood pressure 143 mm[Hg] [facility] 05-13-2023 00:42-0400 Body weight 90.71 kg [facility] 05-06-2023 08:11-0400 Body mass index (BMI) [Ratio] 27.1 kg/m2 [facility] 05-06-2023 08:11-0400 Body temperature 97.9 [degF] [facility] 05-06-2023 08:11-0400 Diastolic blood pressure 91 mm[Hg] [facility] 05-06-2023 08:11-0400 Heart rate 84 /min [facility] 05-06-2023 08:11-0400 Respiratory rate 18 /min [facility] 05-06-2023 08:11-0400 Systolic blood pressure 141 mm[Hg] [facility] 04-29-2023 08:11-0400 Body height 182.88 cm [facility] 04-29-2023 08:11-0400 Body weight 90.71 kg [facility] Encounters Encounter Date Encounter Type Care Provider Facility Start: 03-14-2025 End: 03-14-[address] Mike Aburto MD Work Phone: [facility] Work Phone: Start: 03-14-2025 End: 03-14-[address] Mike Aburto MD -Laboratory Work Phone: Start: 03-14-2025 End: 03-14-2025 ambulatory [facility] Facility:[facility] Start: 02-22-2025 End: 02-22-2025 ambulatory [facility] Start: 02-14-2025 End: 02-14-2025 ambulatory [facility] Start: 02-14-2025 End: 02-18-2025 ambulatory [facility] Start: 01-28-2025 End: 01-28-2025 Office outpatient visit 15 minutes Andrew Guzman MD Work Phone: [facility] Comment on above: Failed back syndrome (Primary Dx); Lumbar foraminal stenosis Start: 01-28-2025 End: 01-28-2025 ambulatory [facility] Start: 01-05-2025 End: 01-05-2025 Orders Only Robby Castrejon PA-C Work Phone: [facility] Comment on above: Status post lumbar s urgery (Primary Dx); Status post insertion of spinal cord stimulator Start: 12-21-2024 End: 12-21-[address] Mike Aburto MD Work Phone: [facility] Work Phone: Start: 12-21-2024 End: 12-21-2024 Patient encounter procedure Cathleen HUDDLESTON -Laboratory Work Phone: Start: 12-21-2024 End: 12-21-2024 ambulatory Cathleen HUDDLESTON Facility:[facility] Start: 12-15-2024 End: 12-15-2024 Postop follow up visit related to original px Robby Castrejon PA-C Work Phone: [facility] Comment on above: Failed back syndrome (Primary Dx) Start: 12-15-2024 End: 12-15-2024 ambulatory ROBBY CASTREJON [facility] Start: 12-08-2024 End: 12-08-2024 ambulatory MIKE ABURTO [facility] Start: 12-08-2024 End: 12-08-2024 Documentation procedure Robby Thakur Kim TARIQ Work Phone: [facility] Start: 12-02-2024 End: 12-02-2024 Postop follow up visit related to original px Robby Thakur Kim [employer]ARIQ Work Phone: [facility] Comment on above: Failed back syndrome (Primary Dx) Start: 12-02-2024 End: 12-02-2024 ambulatory ROBBY CASTREJON [facility] Start: 11-26-2024 End: 11-30-2024 Clinical Support Zuly Good RN [facility] Comment on above: Arrived Start: 11-18-2024 End: 11-19-2024 ambulatory [facility] Start: 11-18-2024 End: 11-19-2024 Subsequent hospital visit by physician Andrew Guzman MD Work Phone: [facility] Start: 10-28-2024 Preprocedural examin ation done Zuly Good RN [facility] Start: 10-28-2024 End: 10-28-2024 ambulatory [facility] Start: 10-28-2024 End: 11-01-2024 Encounter for other preprocedural examination KIKE CANCHOLA [facility] Start: 10-28-2024 End: 11-01-2024 Clinical Support Zuly Good RN [facility] Comment on above: Malfunction of spina l cord stimulator, initial encounter (Primary Dx) Start: 10-08-2024 End: 10-08-2024 ambulatory PROVIDER NOT IN SYSTEM [facility] Start: 10-08-2024 End: 10-08-2024 Office outpatient new 30 minutes Andrew Guzman MD Work Phone: [facility] Comment on above: Malfunction of spina l cord stimulator, initial encounter ([facility]) (Primary Dx); Scoliosis of lumbar spine, unspecified scoliosis type; Lumbar spondylosis; Polymyalgia rheumatica (HCC) Start: 10-08-2024 End: 10-08-2024 ambulatory MIKE CHI LAMONTE [facility] Start: 10-08-2024 End: 10-08-2024 ambulatory PROVIDER NOT IN SYSTEM [facility] Start: 10-08-2024 ambulatory WILBER MORGAN [facility] Ambulatory Start: 10-05-2024 End: 10-05-2024 Patient encounter procedure Ahmet Frances PA-C -Cat Scan, [facility] Work Phone: Start: 10-05-2024 End: 10-05-2024 ambulatory Andrew Guzman Facility:[facility] Start: 09-30-2024 End: 09-30-2024 Office outpatient new 30 minutes Mike Aburto MD Work Phone: [facility] Comment on above: Failed back syndrome (Primary Dx); Lumbar radiculopathy Start: 09-30-2024 End: 09-30-2024 ambulatory MIEK CHI LAMONTE [facility] Start: 09-13-2024 End: 09-13-2024 Transcribe Orders Mike Aburto MD Work Phone: [facility] Comment on above: Encounter for adjust ment and management of neurostimulator (Primary Dx) Start: 09-03-2024 End: 09-03-[address] Mike Aburto MD -Cat Scan, [facility] Work Phone: Start: 09-03-2024 End: 09-03-2024 ambulatory Mike Chi Lamonte Facility:[facility] Start: 08-23-2024 End: 08-23-2024 ambulatory Mike Chi Lamonte Facility:[facility] Start: 08-04-2024 ambulatory Mike Chi Lamonte Facility:[facility] Start: 08-04-2024 End: 08-04-2024 ambulatory Mike Chi Lamonte Facility:[facility] Start: 07-27-2024 End: 07-27-2024 ambulatory Mike Chi Lamonte Facility:[facility] Start: 06-23-2024 End: 06-23-2024 ambulatory Rogelio Preciado Facility:[facility] Start: 11-26-2023 End: 11-26-[address] Mike Abruto Work Phone: [facility] Work Phone: Start: 11-26-2023 End: 11-26-[address] Mike Aburto Work Phone: [facility]-Laboratory Work Phone: Start: 11-24-2023 Non-patient / Non-visit Dr. Joseph Aburto Work Phone: [facility] Work Phone: Start: 11-21-2023 Non-patient / Non-visit Dr. Joseph Aburto Work Phone: [facility] Start: 11-21-2023 End: 11-21-[address] Mike Aburto Work Phone: [facility] Work Phone: Start: 11-21-2023 End: 11-21-[address] Mike Aburto Work Phone: [facility]-Cardiovascula r Services Work Phone: Start: 11-20-2023 End: 11-20-[address] Mike Aburto Work Phone: [facility] Work Phone: Start: 11-20-2023 End: 11-20-[address] Mike Aburto Work Phone: [facility] Work Phone: Start: 11-14-2023 End: 11-14-[address] Mike Aburto Work Phone: [facility] Work Phone: Start: 11-06-2023 End: 11-06-[address] Mike Aburto Work Phone: [facility] Work Phone: Start: 11-06-2023 End: 11-06-[address] Mike Aburto Work Phone: [facility]-Laboratory, Phy Office 3rd Flr Start: 11-03-2023 Non-patient / Non-visit Dr. Joseph Aburto Work Phone: [facility] Work Phone: Start: 11-02-2023 End: 11-03-2023 Evaluation and management of inpatient Dr. Mike Aburto Work Phone: [facility]-Medical Surgical 3 Work Phone: Start: 11-02-2023 End: 11-03-[address] Mike Aburto Work Phone: [facility] Work Phone: Start: 08-20-2023 End: 08-20-[address] Mike Aburto Work Phone: [facility] Work Phone: Start: 08-20-2023 End: 08-20-[address] Mike Aburto Work Phone: [facility]-Laboratory, y Office 3rd Flr Start: 08-13-2023 End: 08-13-[address] Mike Aburto Work Phone: [facility] Work Phone: Start: 07-21-2023 End: 07-21-2023 ambulatory [facility] Work Phone: Start: 07-21-2023 End: 07-21-2023 Patient encounter procedure [facility]-Laboratory Work Phone: Start: 05-27-2023 End: 06-12-2023 ambulatory [facility] Work Phone: Start: 05-27-2023 End: 08-31-2023 Discharged Recurring [facility] Work Phone: Start: 05-06-2023 End: 05-12-2023 ambulatory [facility] Work Phone: Start: 05-06-2023 End: 05-12-2023 Discharged Recurring [facility] Work Phone: Start: 04-21-2023 End: 04-21-2023 Patient encounter procedure [facility]-Laboratory, Phy Office 3rd Flr Start: 04-19-2023 End: 04-19-2023 ambulatory Facility:[facility] Start: 03-11-2023 End: 03-11-2023 ambulatory [facility] Work Phone: Start: 03-11-2023 End: 03-11-2023 Patient encounter procedure [facility]-Cat Scan, [facility] Work Phone: Start: 02-21-2023 End: 02-21-2023 Patient encounter procedure [facility]-Radiology, [facility] Work Phone: Procedures Date Procedure Procedure Detail Performing Clinician Start: 03-14-2025 Vitamin D, 25-hydrox y measurement Dr. Mike Aburto MD Work Phone: Comment on above: Vitamin D StatusDefi ciency: <20 ng/mL (50nmol/L)Insufficiency: 20-30 ng/mL (50-75 nmol/L)Sufficiency: 30-100 ng/mL (75-250 nmol/L)Toxicity: >100 ng/mL (>250 nmol/L) Start: 11-18-2024 Blood typing serologic abo Andrew Guzman MD Work Phone: Start: 11-18-2024 Prothrombin time Andrew Guzman MD Work Phone: Start: 10-08-2024 Follow-up visit Follow-up ANDREW GUZMAN Start: 10-05-2024 Computed tomography of thoracic spine without contrast Dr. Mike Aburto MD Work Phone: Start: 09-03-2024 CT of lumbar spine Dr. Mike Aburto MD Work Phone: Start: 11-02-2023 CT of head without contrast Dr. Mike Aburto Work Phone: Start: 04-21-2023 Investigation of transfusion reaction Start: 04-21-2023 Microbial culture, routine Start: 03-11-2023 Computed tomography of abdomen and pelvis with contrast Start: 02-21-2023 Radiography of esophagus Start: 08-20-2017 Colonoscopy Ahmet dejesus PA-C Work Phone: Plan of Treatment Date Care Activity Detail Author Start: 07-09-2032 Tetanus vaccination Tetanus: Every 1 0yrs [facility] Start: 02-13-2028 Respiratory Syncytia l Virus Immunization: Risk, 60-74 Risk, or 75+ (1 - 1-dose 75+ series) Respiratory Syncytial Virus Immunization: Risk, 60-74 Risk, or 75+ (1 - 1-dose 75+ series) [facility] Start: 08-20-2027 Screening for malign ant neoplasm of colon [facility] Start: 04-13-2025 ambulatory Ambulatory Facility:[facility] Start: 04-05-2025 ambulatory Ambulatory Facility:[facility] Start: 01-25-2025 End: 01-25-2025 Follow-up encounter 01/25/2025 2:00 PM EDT Follow-Up [facility] [address] [facility] [place] [phone] Andrew Guzman MD [address] [facility] [address] [address] [facility] Start: 12-30-2024 End: 12-30-2024 Patient encounter procedure 12/30/2024 11:15 AM EDT Office Visit [facility] [address] [place] [phone] Robby Castrejon PA-C [address] [facility] [address] [address] [facility] Start: 12-15-2024 End: 12-15-2024 Patient encounter procedure 12/15/2024 11:15 AM EST Office Visit [facility] [address] [facility] [place] [address] Robby Castrejon PA-C [address] [address] [facility] Start: 12-08-2024 End: 12-08-2024 Clinical Support 12/08/2024 11:00 AM EST Clinical Support [facility] [address] [facility] [place] [address] [facility] Start: 12-03-2024 End: 12-03-2024 Follow-up encounter 12/03/2024 1:00 PM EST Follow-Up [facility] [address] [facility] [place] [address] Robby Castrejon PA-C [address] [address] [facility] Start: 11-26-2024 End: 11-26-2024 Clinical Support 11/26/2024 11:00 AM EST Clinical Support [facility] [address] [facility] [place] [address] [facility] Start: 11-11-2024 End: 11-11-2024 Admission to same day surgery center 11/11/2024 6:50 AM EST - 11/11/2024 10:50 AM EST Surgery [facility] [address] [place] [address] Andrew Guzman MD [address] [address] Thoracic 10-11, possible Thoracic 7-9 Laminectomy, Removal Retained SCS Electrodes, Insertion of Paddle Lead Electrode, possible Thoracic 7-8 Laminoplasty/fusion, Removal of Left Flank IPG, insertion of new Left Flank IPG. [facility] Comment on above: Thoracic 10-11, poss ible Thoracic 7-9 Laminectomy, Removal Retained SCS Electrodes, Insertion of Paddle Lead Electrode, possible Thoracic 7-8 Laminoplasty/fusion, Removal of Left Flank IPG, insertion of new Left Flank IPG. Start: 11-11-2024 End: 11-11-2024 Insj/rplcmt spi npgr dir/induxive coupling INSERTION SPINAL CORD STIMULATOR PERMANENT Malfunction of spinal cord stimulator, initial encounter 11/11/2024 6:50 AM EST [facility] Start: 11-11-2024 Subsequent hospital visit by physician 11/11/2024 6:50 AM EST Hospital Encounter [facility] [address] [place] [address] Andrew Guzman MD [address] [address] [facility] Start: 10-08-2024 End: 10-08-2024 Patient encounter procedure 10/08/2024 2:15 PM EST Office Visit [facility] [address] [place] [phone] Andrew Guzman MD [address] [address] [facility] Start: 09-30-2024 End: 09-30-2025 CT Thoracic spine WO contrast CT Thoracic Spine Without Contrast Imaging STAT Failed back syndrome Expected: 09/30/2024 (Approximate), Expires: 09/30/2025 [facility] Work Phone: Comment on above: Expected: 09/30/2024 (Approximate), Expires: 09/30/2025 Start: 06-13-2024 COVID-19 Vaccine ( season) COVID-19 Vaccine ( season) [facility] Start: 11-06-2023 [facility] Start: 11-03-2023 Patient discharge [facility] Start: 11-02-2023 Continuous positive airway pressure ventilation treatment [facility] Start: 11-02-2023 Following clinical pathway protocol [facility] Start: 11-02-2023 Assessment of risk o f venous thromboembolism [facility] Start: 11-02-2023 Fall prevention [facility] Start: 11-02-2023 Inhalation therapy procedure [facility] Start: 11-02-2023 Insertion of cathete r into peripheral vein [facility] Start: 11-02-2023 Providing care accor ding to standard [facility] Start: 11-02-2023 Provision of activit y privileges [facility] Start: 11-02-2023 Referral to occupati onal therapist [facility] Start: 11-02-2023 Referral to service [facility] Start: 11-02-2023 [facility] Start: 11-02-2023 Verification routine [facility] Start: 11-02-2023 Admission procedure [facility] Start: 11-02-2023 Hospital admission, emergency, from emergency room, medical nature [facility] Start: 2018 Fall risk assessment Falls Risk Asse ssment [facility] Start: 2003 Screening for malign ant neoplasm of colon Flexible sigmoidoscopy [facility] Start: 1971 Hepatitis C screening Hepatitis C Sc reening [facility] Start: 1965 Depression screening using PHQ-9 (Patient Health Questionnaire 9) score Depression Screening/Follow-Up (PHQ-2/9) [facility] Start: 02-13-1956 Medicare Wellness Visit Medica re Wellness Visit [facility] Start: 1953 Prostate specific an tigen measurement PSA Level [facility] Start: 1953 Screening for malign ant neoplasm of colon [facility] End: 12-08-2025 C reactive protein [Mass/volume] in Serum or Plasma CRP, Inflammation Lab Routine Erythema Status post lumbar surgery 1 Occurrences starting 12/08/2024 until 12/08/2025 [facility] Comment on above: 1 Occurrences starti ng 12/08/2024 until 12/08/2025 End: 12-08-2025 Complete blood count with white cell differential, manual CBC and Differential Lab Routine Erythema Status post lumbar surgery 1 Occurrences starting 12/08/2024 until 12/08/2025 [facility] Work Phone: Comment on above: 1 Occurrences starti ng 12/08/2024 until 12/08/2025 End: 12-08-2025 Erythrocyte sedimentation rate Sedimentation Rate Lab Routine Erythema Status post lumbar surgery 1 Occurrences starting 12/08/2024 until 12/08/2025 [facility] Comment on above: 1 Occurrences starti ng 12/08/2024 until 12/08/2025 Lipid 1996 panel - S olman or Plasma [facility] Patient Education ED Vertigo, Unspecified [facility] Work Phone: Patient referral [facility] Work Phone: End: 01-05-2026 XR Lumbar spine 2 or 3 Views XR Lumbar Spine 2-3 Views (Standard) Imaging Routine Status post lumbar surgery Status post insertion of spinal cord stimulator 1 Occurrences starting 01/05/2025 until 01/05/2026 [facility] Comment on above: 1 Occurrences starti ng 01/05/2025 until 01/05/2026 XR Lumbar spine 2 or 3 Views XR Lumbar Spine 2-3 Views (Standard) Imaging Routine Status post lumbar surgery Status post insertion of spinal cord stimulator 01/05/2025 2:28 PM EDT [facility] End: 11-18-2024 XR Thoracic spine 2 Views [facility] Work Phone: Comment on above: One time imaging One time imaging for 1 Occurrences starting 11/18/2024 until 11/18/2024 End: 01-05-2026 XR Thoracic spine 3 Views XR Thoracic Spine 3 Views (Standard) Imaging Routine Status post lumbar surgery Status post insertion of spinal cord stimulator 1 Occurrences starting 01/05/2025 until 01/05/2026 [facility] Work Phone: Comment on above: 1 Occurrences starti ng 01/05/2025 until 01/05/2026 XR Thoracic spine 3 Views XR Tho racic Spine 3 Views (Standard) Imaging Routine Status post lumbar surgery Status post insertion of spinal cord stimulator 01/05/2025 2:29 PM EDT [facility] Payers Date Payer Category Payer Self-pay [id number] 2024 Unknown [id number] 2023 Medicare PPO [employer] PPO [id number] 2023 Medicare [id number] 2022 Miscellaneous or Other [facility] [id number] 2022 Medicare [id number] 2018 Medicare MEDICARE PART A & B Member Subscriber Plan / Payer (Effective 2018-Present) Name: aTmra Guzman Member ID: [id number] Relation to Subscriber: Self Name: Tamra Guzman Subscriber ID: [id number] Payer ID: Not on file Group ID: Not on file Type: Not on file Address: [facility] [place] [address] [employer] [place] [address] [id number] 2018 Medicare [id number] 1955 Unknown [id number] 2.16.840.1.967868.3.579.2. 1953 Unknown [id number] 2.16.840.1.229235.3.579.2. 1953 Unknown [id number] 2.16.840.1.152440.3.579.2. 1953 Unknown [id number] 2.16.840.1.511851.3.579.2. 1953 Unknown [id number] 2.16.840.1.437347.3.579.2. 1953 Unknown [id number] 2.16.840.1.009284.3.579.2. 1953 Unknown [id number] 2.16.840.1.652581.3.579.2. 1953 Unknown [id number] 2.16.840.1.386399.3.579.2. 1953 Unknown [id number] 2.16.840.1.367938.3.579.2. 1953 Unknown [id number] 2.16.840.1.106501.3.579.2. 1953 Unknown [id number] 2.16.840.1.825069.3.579.2. 1953 Unknown [id number] 2.16.840.1.758833.3.579.2. 1953 Unknown [id number] 2.16.840.1.012694.3.579.2. 1953 Unknown [id number] 2.16.840.1.131552.3.579.2. 1953 Unknown [id number] 2.16.840.1.902126.3.579.2. 3 1953 Unknown [id number] 2.16.840.1.653514.3.579.2. 1953 Unknown [id number] 2.16.840.1.345470.3.579.2. 1953 Unknown [id number] 2..840.1.984506.3.579.2. 1953 Unknown [id number] 2..840.1.054956.3.579.2. 1953 Unknown [id number] 2.840.1.973157.3.579.2. 1953 Unknown [id number] 2.840.1.069171.3.579.2. 1953 Unknown [id number] 2.840.1.022582.3.579.2. 1953 Unknown [id number] 2.840.1.425733.3.579.2. 1953 Unknown [id number] 2.840.1.947376.3.579.2. 1953 Unknown [id number] 2.840.1.691603.3.579.2. Unknown [facility] [id number] Unknown [id number] 2.16.840.1.798448.3.579.2. 462 Unknown [id number] 2.16.840.1.685813.3.579.2. 462 Unknown [id number] 2.16.840.1.002111.3.579.2. 462 Unknown [id number] 2.16840.1.784420.3.579.2. 462 Unknown [id number] 2.16.840.1.326974.3.579.2. 462 Unknown [id number] 2.16.840.1.336120.3.579.2. 462 Unknown [id number] 2.16.840.1.007975.3.579.2. 462 Unknown [id number] 2.16.840.1.658879.3.579.2. 462 Unknown [id number] 2.16840.1.444990.3.579.2. 462 Unknown [id number] 2.16.840.1.322447.3.579.2. 462 Unknown [id number] 2.0.1.365133.3.579.2. 462 Social History Date Type Detail Facility Start: 05-27-2020 End: 11-14-2023 Tobacco smoking status PAIS Unknown if ever smoked [facility] Start: 1955 Sex Assigned At Male [facility] Start: 04-19-2014 End: 11-18-2024 History of Social function [facility] Start: 04-19-2014 End: 11-18-2024 Tobacco use panel [facility] Start: 1955 Sex assigned at Not on file [facility] Start: 02-28-2024 End: 09-30-2024 Tobacco smoking status NHIS Never smoked tobacco [facility] Start: 09-30-2024 End: 11-22-2024 Alcoholic beverage intake Lifetime non-drinker (finding) [facility] Start: 10-28-2024 Tobacco use and exposure Smokeless tobacco non-user [facility] Has the [employer], or [employer] threatened to shut off services in your home in past 12Mo No [facility] (I/We) worried wheth er (my/our) food would run out before (I/we) got money to buy more. Never true [facility] In the past 12 month s, has lack of transportation kept you from medical appointments or from getting medications? No [facility] Start: 12-31-2024 Sex Male (finding) [facility] Medical Equipment Procedure Code Equipment Code Equipment Original Text Equipment Identifier Dates Hemostat 2 X 4in [facility] - [id number] Start: 11-18-2024 Hemostat 8 X 12. 5cm X 10mm Surgifoam Gelatin Sponge - [id number] Start: 11-18-2024 Lead 60cm Penta - [id number] Start: 11-18-2024 Sealant 5ml Hemo static Matrix Fast Prep Floseal W/ Recothrom - [id number] Start: 11-18-2024 Sealant 5ml Hemo static Matrix Fast Prep Floseal W/ Recothrom - [id number] Start: 11-18-2024 Hemostat 4 X 8in Surgicel Original Absorbable - [id number] Start: 11-18-2024 Generator Neurostimulator Implantable Xr5 Proclaim - [id number] Start: 11-18-2024 Goals Date Patient Goal Desired Activity /State Functional Status Date Assessment Result Facility 11-03-2023 Functional status Chair;Bathroom Privileg e [facility] Work Phone: Mental Status Date Assessment Result Facility 11-03-2023 Cognitive function Voice/Name [facility] Work Phone: 11-02-2023 Cognitive function Level Of Cons ciousness Awake;Alert;Appropriate;Follow s Commands [facility] Work Phone: Clinical Notes 04-19-2023 to 02-22-2025 Andrew Guzman MD - 01/28/2025 3:00 PM Robby Flores PA-C - 01/05/2025 2:58 PM Robby Flores PA-C - 01/05/2025 2:58 PM EDTPatient InstructionsPatient Instructions Note Date & Type Note Facility 02-22-2025 Note Neurosurgery interva l progress note. Patient presented today for removal and replacement of his spinal cord stimulator system which was malfunctioning, and the malfunctioning was quite impactful as the patient requires MRI brain and pancreas, which cannot be done if the system is malfunctioning. However this morning the system was interrogated by practice representative from [place] and system is now functioning normally. Therefore his planned surgery will be canceled and he will be discharged to home. If he should have issues in the future with his system he will call me and then we can reassess as to whether or not a replacement is indicated. Plan to discharge patient today. AUTHENTICATED BY ANDREW GUZMAN, ON 02/22/2025 12:35:13 [facility] 02-14-2025 Note Pre-Operative H&P Assessment and Plan DEMOND (obstructive sleep apnea) Uses cpap Hypertension Blood pressure well controlled on current medical therapy Hyperlipidemia On statin therapy GERD (gastroesophageal reflux disease) Continue pepcid perioperatively for aspiration precautions Malfunction of spinal cord stimulator Scheduled for Removal of Retained Thoracic SCS and Left Flank IPG, Insertion of Thoracic SCS via Thoracic 7-8 Laminectomy, Thoracic 7-8 Posterior Spinal Instrumentation and Fusion. Insertion Left Flank IPG Preop examination Patient is scheduled for a medium risk surgery under general anesthesia. He has no history of ischemic heart disease, pulmonary disease, diabetes, renal disease, or vascular disease. He denies any cardiac symptoms and is able to achieve a mets of 4 without difficulty. Per ACC/AHA guidelines he is acceptable cardiac risk. He reports a history of difficulty waking from anesthesia. Chronic conditions are stable and managed appropriately. Pending his preop testing which includes labs, MRSA, and chest x-ray he is medically stable to proceed with planned surgery. Chief Complaint Patient presents with Pre-operative Medical Risk Stratification History of Present Illness Tamra Guzman is a 70-year-old male who is scheduled for Removal of Retained Thoracic SCS and Left Flank IPG, Insertion of Thoracic SCS via Thoracic 7-8 Laminectomy, Thoracic 7-8 Posterior Spinal Instrumentation and Fusion. Insertion Left Flank IPG on 02/18/2025. His chronic conditions include GERD, hyperlipidemia, hypertension, and DEMOND. He denies any new or worsening cardiopulmonary complaints today. He is medically stable to proceed with planned surgery. Please see below regarding status of active medical conditions and assessment and plan regarding details of preoperative medical risk stratification. Past Medical History: Diagnosis Date Arthritis Cataract GERD (gastroesophageal reflux disease) Hyperlipidemia Hypertension Hyperthyroidism IBS (irritable bowel syndrome) Lumbar spondylosis Nephrolithiasis Polymyalgia (HCC) Rheumatic fever as a child Skin cancer Sleep apnea, obstructive uses cpap No past medical history pertinent negatives. Past Surgical History: Procedure Laterality Date COCHLEAR IMPLANT HERNIA REPAIR IR NEUROSTIMULATOR IMPLANT 12/14/2021 ROTATOR CUFF REPAIR Right SPINAL CORD STIMULATOR PERMANENT Bilateral 11/18/2024 Procedure: Thoracic 9-10 Laminectomy, Removal Retained SCS Electrodes, Insertion of Paddle Lead Electrode via 9-10 laminectomy, Removal of Left Flank IPG, insertion of new Left Flank IPG.; Surgeon: Andrew Guzman MD; Location: Main OR; Service: Neurological; Laterality: Bilateral; TOTAL KNEE ARTHROPLASTY Bilateral VASECTOMY Social History Tobacco Use Smoking status: Never Smokeless tobacco: Never Substance Use Topics Alcohol use: Never Family History Problem Relation Age of Onset Pancreatic cancer Mother No Known Problems Father Kidney cancer Brother Drug abuse Brother Prior to Admission medications taking for visit date 02/14/25 Medication Sig Taking? Discontinued? acetaminophen (TYLENOL) 500 MG tablet Take 1 (one) tablet (500 mg total) by mouth every 6 (six) hours as needed . Yes amLODIPine (NORVASC) 5 MG tablet Take 1 (one) tablet (5 mg total) by mouth every morning . Yes donepeziL (ARICEPT) 10 MG tablet 1 (one) tablet (10 mg total) every morning . Yes famotidine (PEPCID) 40 MG tablet Take 1 (one) tablet (40 mg total) by mouth daily in the evening . Yes hydroxychloroquine (PLAQUENIL) 200 mg tablet Take 1 (one) tablet (200 mg total) by mouth 2 (two) times a day . Yes memantine (NAMENDA) 10 MG tablet Take 1 (one) tablet (10 mg total) by mouth 2 (two) times a day . Yes predniSONE 2 mg TbEC Take 1 (one) tablet (2 mg total) by mouth every morning . Yes rosuvastatin (CRESTOR) 20 MG tablet Take 1 (one) tablet (20 mg total) by mouth nightly . Yes Allergies[1] Review of Systems Physical Exam BP 125/78 Pulse 64 Ht 6' Wt 92.5 kg (204 lb) SpO2 99% BMI 27.67 kg/m Constitutional: He is oriented to person, place, and time. He appears well developed and well-nourished. Skin: Skin is warm, dry and intact. Neck: Normal range of motion. Cardiovascular: Normal rate and regular rhythm. Pulmonary/Chest: Effort normal and breath sounds normal. Musculoskeletal: Normal range of motion. He exhibits no edema or tenderness. Neurological: He is alert and oriented to person, place, and time. Psychiatric: He has a normal mood and affect. His behavior is normal. Cognition and memory are normal. Data Preprocedure Sleep Apnea Assessment - High Risk (12/13) Sleep Apnea in the patient's Active Problem List or Medical History: yes 1. History of apparent airway obstruction during sleep: (1 point for this category) No data recorded 2. Somnolence of the patient: (1 point (more content not included)... [facility] 01-28-2025 History of Presen t illness Narrative Malfunction of retained spinal cord stimulator. RAGHAV Browning is a 69-year-old male well-known to me who underwent with me on 11/18/2024 insertion of a permanent spinal cord stimulator. Unfortunately patient in postoperative testing was noted to have high impedance of the most superior electrode leads on the right, which is precluding the ability to obtain MRI. The patient requires MRI scanning of other parts of his body including his pancreas and brain, but he cannot have his MRI because of high impedance and inability to convert the system to MRI mode. Plain spine films were performed on 01/05/2025 the thoracic and lumbar spine which I have independently reviewed on a computerized workstation, my interpretation follows. The patient has stable appearance of his electrode from the T7-T8 level as compared to intraoperative films of 11/18/2024. He has a significant dextroscoliosis of the lumbar spine. The patient continues to have multilevel spondylosis and scoliosis without new compression fractures. He states that he continues to have significant axial lumbar pain despite the stimulator being on. He also has right sciatica. He was very happy with his initial spinal cord stimulator which was placed in [place], with cylindrical leads, but then the system failed which required the replacement that I did. Unfortunately however high impedance has occurred again, and this disallows him to undergo MRI. He currently states his most bothersome pain is at the inferior lumbar area and the lumbosacral junction. He reports no pain at the spinal cord stimulator thoracic incision site. Past medical history significant for cochlear implant. Polymyalgia rheumatica. Chronic steroid exposure. Rheumatoid arthritis. Hypertension. Retained spinal cord stimulator. Bilateral knee arthroplasties. Status post lumbar spine surgery. Review of Systems No history of coronary artery disease DVT blood clot. No history of exposure to antiplatelets or anticoagulants. The patient does not drink alcohol and does not smoke. He has never had any direct reconstructive spinal surgery. He is managed by international marketing intern in [facility]. He states his manifestations of polymyalgia rheumatica are pain everywhere. Medications reviewed in the DEC. Allergies to bee pollen. Psychosocial review. 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 He lives in the [facility] with his . Physical examination. Patient is awake alert oriented male in mild distress second axial lumbar pain. He has significant pain and tenderness to palpation of the mid lumbar inferior lumbar region. He has well-healed lumbar laminectomy scar with no pseudomeningocele or rash. Left flank IPG site is clean and dry with no erythema. He has no pain to percussion of the thoracic incision site at approximately T9-T10, and there is no pseudomeningocele at this site. Lungs are clear with no wheezing. Cardiac exam reveals regular rate rhythm. Power in the bilateral lower extremities including iliopsoas good across of hamstrings and dorsi plantarflex the feet are 5-5 and symmetric. He does have back pain when he attempts to ambulate and has a slight anterior flexion of the spine. No pronator drift. Emotional content is appropriate for context of clinic visit. No tremor of the upper or lower extremities. Impression Malfunction of retained spinal cord stimulator, which is prohibiting patient from undergoing necessary MRI exams of other parts of his body. Failed back syndrome. Lumbar scoliosis. Lumbar spondylosis. Plan I explained to the patient that it is impossible to predict whether any implanted spinal cord stimulator will malfunction at any time. Malfunction is always a possibility of any implanted by medical record assistant and I have once again reminded him and his of this problem. There is no guarantee that removing the current system or replacing it with a new system will give him the degree of relief that he would seek. However I still believe that this is the most appropriate and straightforward means of potentially giving him relief as opposed to direct reconstructive spinal surgery which would likely result in thoracolumbosacral fusion based on his plain spine films. The patient wishes to proceed with explantation of his current entire system. I would recommend then reimplantation with a Tri Centris Driver lead which is much longer than his current Penta lead and therefore would increase the chances of getting appropriate stimulation of both back and leg. Of also the recommend a new E. [place]ima, IPG is the try Centris E. Lima combination is reportedly the best in terms of MRI compatibility and stability. However also carefully discussed with the patient and his that this may be more complex surgery, which may require T7-T8 laminectomy in order to situate the electrode in the appropriate place due to scarring from prior procedures, which will then also require posterior instrumentation typically laminoplasty plates and fusion so as to keep the electrode in appropriate position, as well as placement of the new IPG. He understands once again very well the risk-benefit analysis including the very remote chances of stroke DVT pulm embolism myocardial infarction, as well as CSF leak, spinal cord injury, epidural hematoma, and surgical site infection, as well as malfunction of the spinal cord stimulator system which could happen anytime during the lifetime of the device, as well as the fact that he may not be happy with the degree of relief he ultimately can achieve with reprogramming of the spinal cord stimulator, and may have significant residual pain that could require other techniques or procedures such as a pain pump or even direct reconstructive spinal surgery. Patient understands these risks and wished to proceed with surgery as outlined above. Andrew Guzman MD documented in this encounter [facility] 01-28-2025 Note Malfunction of retai oscar spinal cord stimulator. RAGHAV Browning is a 69-year-old male well-known to me who underwent with me on 11/18/2024 insertion of a permanent spinal cord stimulator. Unfortunately patient in postoperative testing was noted to have high impedance of the most superior electrode leads on the right, which is precluding the ability to obtain MRI. The patient requires MRI scanning of other parts of his body including his pancreas and brain, but he cannot have his MRI because of high impedance and inability to convert the system to MRI mode. Plain spine films were performed on 01/05/2025 the thoracic and lumbar spine which I have independently reviewed on a computerized workstation, my interpretation follows. The patient has stable appearance of his electrode from the T7-T8 level as compared to intraoperative films of 11/18/2024. He has a significant dextroscoliosis of the lumbar spine. The patient continues to have multilevel spondylosis and scoliosis without new compression fractures. He states that he continues to have significant axial lumbar pain despite the stimulator being on. He also has right sciatica. He was very happy with his initial spinal cord stimulator whichwas placed in [place], with cylindrical leads, but then the system failed which required the replacement that I did. Unfortunately however high impedance has occurred again, and this disallows him to undergo MRI. He currently states his most bothersome pain is at the inferior lumbar area and the lumbosacral junction. He reports no pain at the spinal cord stimulator thoracic incision site. Past medical history significant for cochlear implant. Polymyalgia rheumatica. Chronic steroid exposure. Rheumatoid arthritis. Hypertension. Retained spinal cord stimulator. Bilateral knee arthroplasties. Status post lumbar spine surgery. Review of Systems No history of coronary artery disease DVT blood clot. No history of exposure to antiplatelets or anticoagulants. The patient does not drink alcohol and does not smoke. He has never had any direct reconstructive spinal surgery. He is managed by international marketing intern in [facility]. He states his manifestations of polymyalgia rheumatica are pain everywhere. Medications reviewed in the DEC. Allergies to bee pollen. Psychosocial review. 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 He lives in the [facility] with his . Physical examination. Patient is awake alert oriented male in mild distress second axial lumbar pain. He has significant pain and tenderness to palpation of the mid lumbar inferior lumbar region. He has well-healed lumbar laminectomy scar with no pseudomeningocele or rash. Left flank IPG site is clean and dry with no erythema. He has no pain to percussion of the thoracic incision site at approximately T9-T10, and there is no pseudomeningocele at this site. Lungs are clear with no wheezing. Cardiac exam reveals regular rate rhythm. Power in the bilateral lower extremities including iliopsoas good across of hamstrings and dorsi plantarflex the feet are 5-5 and symmetric. He does have back pain when he attempts to ambulate and has a slight anterior flexion of the spine. No pronator drift. Emotional content is appropriate for context of clinic visit. No tremor of the upper or lower extremities. Impression Malfunction of retained spinal cord stimulator, which is prohibiting patient from undergoing necessary MRI exams of other parts of his body. Failed back syndrome. Lumbar scoliosis. Lumbar spondylosis. Plan I explained to the patient that it is impossible to predict whether any implanted spinal cord stimulator will malfunction at any time. Malfunction is always a possibility of any implanted by medical record assistant and I have once again reminded him and his of this problem. There is no guarantee that removing the current system or replacing it with a new system will give him the degree of relief that he would seek. However I still believe that this is the most appropriate and straightforward means of potentially giving him relief as opposed to direct reconstructive spinal surgery which would likely result in thoracolumbosacral fusion based on his plain spine films. The patient wishes to proceed with explantation of his current entire system. I would recommend then reimplantation with a Tri Centris Driver lead which is much longer than his current Penta lead and therefore would increase the chances of getting appropriate stimulation of both back and leg. Of also the recommend a new E. Lima, IPG is the try Centris E. Lima combination is reportedly the best in terms of MRI compatibility and stability. However also carefully discussed with the patient and his that this may be more complex surgery, which may require T7-T8 laminectomy in order to situate the electrode in the appropriate place due to scarring from prior procedures, which (more content not included)... [facility] 01-05-2025 Note Chanell from [employer] sa w patient in clinic today to review his spinal cord stimulator settings and to interrogate the device. It was found that he has impedance to the top right electrodes, barring him from MRI given the impedance. His stimulator programs were adjusted. Additionally thoracic lumbar x-rays were taken today to evaluate for lead migration. After review of films it does appear there is paddle migration compared to intra-op films. Patient will follow-up with Dr. Guzman to discuss next steps in care. Continue BLT restrictions. Addendum 01/28/2025 3:10 PM: 01/05/2025 x-ray thoracic and lumbar scans re-reviewed including review of radiologist interpretation. There is no evidence of neurostimulator migration or change to location on the thoracic lumbar x-ray films completed 01/05/2025 when compared to 11/18/2024 XR OR T-Spine 2 Views. AUTHENTICATED BY ROBBY CASTREJON, ON 01/28/2025 15:14:35 [facility] 01-05-2025 History of Presen t illness Narrative Chanell from [employer] saw patient in clinic today to review his spinal cord stimulator settings and to interrogate the device. It was found that he has impedance to the top right electrodes, barring him from MRI given the impedance. His stimulator programs were adjusted. Additionally thoracic lumbar x-rays were taken today to evaluate for lead migration. After review of films it does appear there is paddle migration compared to intra-op films. Patient will follow-up with Dr. Guzman to discuss next steps in care. Continue BLT restrictions. documented in this encounter [facility] 01-05-2025 History of Presen t illness Narrative Chanell from [employer] saw patient in clinic today to review his spinal cord stimulator settings and to interrogate the device. It was found that he has impedance to the top right electrodes, barring him from MRI given the impedance. His stimulator programs were adjusted. Additionally thoracic lumbar x-rays were taken today to evaluate for lead migration. After review of films it does appear there is paddle migration compared to intra-op films. Patient will follow-up with Dr. Guzman to discuss next steps in care. Continue BLT restrictions. Addendum 01/28/2025 3:10 PM: 01/05/2025 x-ray thoracic and lumbar scans re-reviewed including review of radiologist interpretation. There is no evidence of neurostimulator migration or change to location on the thoracic lumbar x-ray films completed 01/05/2025 when compared to 11/18/2024 XR OR T-Spine 2 Views. documented in this encounter [facility] 12-15-2024 Instructions Robby Castrejon PA-C - 12/15/2024 11:53 AM EST Clinically stable. Recommend he try turning stimulator up to setting of 5 and if no improvement after several days to contact Chanell from [employer] to discuss settings. The erythema to his thoracic surgical site is markedly improved. Pt advised to have him or his spouse monitor site for any changes, immediately notify office/seek emergency department treatment with any increased erythema, or if swelling discharge dehiscence fever chills intractable pain or weakness. Offered patient follow up prior to his trip to [facility] end december and he opts to follow up shortly on his return in January. Call with any questions or concerns in the interim. documented in this encounter [facility] 12-15-2024 Note Neurosurgery Progres s Note Assessment/Plan: Thoracic 9-10 Laminectomy, Removal Retained SCS Electrodes, Insertion of Paddle Lead Electrode via 9-10 laminectomy, Removal of Left Flank IPG, insertion of new Left Flank IPG on 11/18/24 for hx of Retained spinal cord stimulator, with malfunctioning spinal cord stimulator, and chronic axial lumbosacral pain and leg pain. Clinically stable. Recommend he try turning stimulator up to setting of 5 and if no improvement after several days to contact Chanell hall [employer] to discuss settings. The erythema to his thoracic surgical site is markedly improved. Pt advised to have him or his spouse monitor site for any changes, immediately notify office/seek emergency department treatment with any increased erythema, or if swelling discharge dehiscence fever chills intractable pain or weakness. Offered patient follow up prior to his trip to [place] end of December and he opts to follow up shortly on his return in January. Call with any questions or concerns in the interim. Robby Castrejon PA-C [facility] Subjective: Presents for post operative appointment. He has increased axial lower lumbar back pain past 4 days. He states he recently turned his settings on the spinal cord stimulator from 11 to 4. He denies any fever chill or surgical site concerns including no discharge to surgical sites reported. He reports no lower extremity pain numbness or tingling. He completed bactrim with probiotic without issue. Objective: General: Healthy, well-appearing 69 y.o. male, in NAD nontoxic appearing HENT: Nares patent with minimal clear drainage, hearing grossly intact Eyes: PERRLA, 4mm bilaterally. Sclera white, anicteric. Neuro: Awake, alert, and oriented x 3; face symmetric, speech fluent Neck: Supple, full lateral rotation Chest: Chest rise symmetric, respirations non-labored; On auscultation, breath sounds symmetric bilaterally, without crackles Cardiac: RRR, no M/G/R. DP and radial pulses 2+ bilaterally. Abdomen: soft, non-tender, non-distended Back: Image of back uploaded to chart with pt verbal consent. There is no significant tenderness to surgical sites or midline. There is no discharge or swelling. There is no crepitus or step off. Left IPG site is CDI healing well without complication. Lumbar midline incision CDI no complication. Thoracic midline incision site there is improvement of previously seen erythema. No swelling or fluctuance. No heat rash or discharge. No tenderness. Skin: Warm and dry MSK: Manual Muscle Testing Muscle Group Right Left Hip Flexion 5 5 Knee Extension 5 5 Knee Flexion 5 5 Dorsiflexion 5 5 Plantar Flexion 5 5 EHL 5 5 Sensation intact Negative straight leg raise Normal gait AUTHENTICATED BY ROBBY CASTREJON, ON 12/15/2024 11:53:31 [facility] 12-15-2024 History of Presen t illness Narrative Neurosurgery Progress Note Assessment/Plan: Thoracic 9-10 Laminectomy, Removal Retained SCS Electrodes, Insertion of Paddle Lead Electrode via 9-10 laminectomy, Removal of Left Flank IPG, insertion of new Left Flank IPG on 11/18/24 for hx of Retained spinal cord stimulator, with malfunctioning spinal cord stimulator, and chronic axial lumbosacral pain and leg pain. Clinically stable. Recommend he try turning stimulator up to setting of 5 and if no improvement after several days to contact Chanell Driver to discuss settings. The erythema to his thoracic surgical site is markedly improved. Pt advised to have him or his spouse monitor site for any changes, immediately notify office/seek emergency department treatment with any increased erythema, or if swelling discharge dehiscence fever chills intractable pain or weakness. Offered patient follow up prior to his trip to [place] end of December and he opts to follow up shortly on his return in January. Call with any questions or concerns in the interim. Robby Castrejon PA-C [facility] Neurosurgery Subjective: Presents for post operative appointment. He has increased axial lower lumbar back pain past 4 days. He states he recently turned his settings on the spinal cord stimulator from 11 to 4. He denies any fever chill or surgical site concerns including no discharge to surgical sites reported. He reports no lower extremity pain numbness or tingling. He completed bactrim with probiotic without issue. Objective: General: Healthy, well-appearing 69 y.o. male, in NAD nontoxic appearing HENT: Nares patent with minimal clear drainage, hearing grossly intact Eyes: PERRLA, 4mm bilaterally. Sclera white, anicteric. Neuro: Awake, alert, and oriented x 3; face symmetric, speech fluent Neck: Supple, full lateral rotation Chest: Chest rise symmetric, respirations non-labored; On auscultation, breath sounds symmetric bilaterally, without crackles Cardiac: RRR, no M/G/R. DP and radial pulses 2+ bilaterally. Abdomen: soft, non-tender, non-distended Back: Image of back uploaded to chart with pt verbal consent. There is no significant tenderness to surgical sites or midline. There is no discharge or swelling. There is no crepitus or step off. Left IPG site is CDI healing well without complication. Lumbar midline incision CDI no complication. Thoracic midline incision site there is improvement of previously seen erythema. No swelling or fluctuance. No heat rash or discharge. No tenderness. Skin: Warm and dry MSK: Manual Muscle Testing Muscle Group Right Left Hip Flexion 5 5 Knee Extension 5 5 Knee Flexion 5 5 Dorsiflexion 5 5 Plantar Flexion 5 5 EHL 5 5 Sensation intact Negative straight leg raise Normal gait documented in this encounter [facility] 12-09-2024 History of Presen t illness Narrative Presented today for mid thoracic incision check. Area around incision was slightly reddened, no open areas noted, no drainage, no fever or chills. He took his last antibiotic this am. Updated Lebron Kim TARIQ, he ordered another round of antibiotics and CBC, CRP, ESR. Patient will follow up with him on Friday 12/15. Understands to call with any drainage, signs of infection, or any concerns. documented in this encounter [facility] 12-08-2024 Note Reviewed nursing not es today, will extend bactrim and see him back in my clinic next Friday12/15/24 sooner if needed. Can use benadryl ointment for pruritis. Reports no side effect to bactrim per RN. Will also order CBC ESR CRP to be completed today. AUTHENTICATED BY ROBBY CASTREJON, ON 12/08/2024 11:50:10 [facility] 12-08-2024 History of Presen t illness Narrative Reviewed nursing notes today, will extend bactrim and see him back in my clinic next Friday12/15/24 sooner if needed. Can use benadryl ointment for pruritis. Reports no side effect to bactrim per RN. Will also order CBC ESR CRP to be completed today. documented in this encounter [facility] 12-02-2024 Instructions Robby Castrejon PA-C - 12/02/2024 2:07 PM EST Clinically stable. Post op pain is negligible, no new deficits. There is slight erythema and fluctuance to thoracic midline surgery site. Will prescribe bactrim for 5 days. Patient denies sulfa allergy. Recommend to take medication with food and probiotic. Follow up next week for surgery site check with RN. Follow up with me in 4 weeks, sooner if needed. Explained to immediately notify office/seek emergency department treatment with any increased erythema, or if swelling discharge dehiscence fever chills intractable pain or weakness. Maintain 5 lb BLT restriction. Walk as tolerated. Call with any questions. documented in this encounter [facility] 12-02-2024 Note Neurosurgery Progres s Note Assessment/Plan: Thoracic 9-10 Laminectomy, Removal Retained SCS Electrodes, Insertion of Paddle Lead Electrode via 9-10 laminectomy, Removal of Left Flank IPG, insertion of new Left Flank IPG on 11/18/24 for hx of Retained spinal cord stimulator, with malfunctioning spinal cord stimulator, and chronic axial lumbosacral pain and leg pain. Clinically stable. Post op pain is negligible, no new deficits. There is slight erythema and fluctuance to thoracic midline surgery site. Will prescribe bactrim for 5 days. Patient denies sulfa allergy. Recommend to take medication with food and probiotic. Follow up next week for surgery site check with RN. Follow up with me in 4 weeks, sooner if needed. Explained to immediately notify office/seek emergency department treatment with any increased erythema, or if swelling discharge dehiscence fever chills intractable pain or weakness. Maintain 5 lb BLT restriction. Walk as tolerated. Call with any questions. Robby Castrejon PA-C [facility]surgery Subjective: Presents for post operative appointment. [place] [facility] practice representative at appointment too with patient and states no concerns on their end. Patient not taking analgesics, has mild low back pain at times no worsening. No sciatica. No new numbness tingling weakness. No bowel/bladder dysfunction or saddle anesthesia. Spouse states thoracic incision site slightly red past few days, but no discharge or tenderness reported. No fever chills or sick symptoms. No other concerns at this time. Patient is leaving for vacation to [place] January 05 to January 16. Objective: General: Healthy, well-appearing 69 y.o. male, in NAD nontoxic appearing HENT: Nares patent with minimal clear drainage, hearing grossly intact Eyes: PERRLA, 4mm bilaterally. Sclera white, anicteric. Neuro: Awake, alert, and oriented x 3; face symmetric, speech fluent Neck: Supple, full lateral rotation Chest: Chest rise symmetric, respirations non-labored; On auscultation, breath sounds symmetric bilaterally, without crackles Cardiac: RRR, no M/G/R. DP and radial pulses 2+ bilaterally. Abdomen: soft, non-tender, non-distended Back: Image of back uploaded to chart. There is no significant tenderness to surgical sites or midline. There is no discharge or swelling. There is no crepitus or step off. Left IPG site is CDI healing well without complication. Lumbar midline incision CDI no complication. Thoracic midline incision site is slightly erythematous with fluctuance and slight swelling over site. no discharge dehiscence or tenderness. Skin: Warm and dry MSK: Manual Muscle Testing Muscle Group Right Left Hip Flexion 5 5 Knee Extension 5 5 Knee Flexion 5 5 Dorsiflexion 5 5 Plantar Flexion 5 5 EHL 5 5 Sensation intact Negative straight leg raise Normal gait AUTHENTICATED BY ROBBY CASTREJON, ON 12/02/2024 14:07:44 [facility] 12-02-2024 History of Presen t illness Narrative Neurosurgery Progress Note Assessment/Plan: Thoracic 9-10 Laminectomy, Removal Retained SCS Electrodes, Insertion of Paddle Lead Electrode via 9-10 laminectomy, Removal of Left Flank IPG, insertion of new Left Flank IPG on 11/18/24 for hx of Retained spinal cord stimulator, with malfunctioning spinal cord stimulator, and chronic axial lumbosacral pain and leg pain. Clinically stable. Post op pain is negligible, no new deficits. There is slight erythema and fluctuance to thoracic midline surgery site. Will prescribe bactrim for 5 days. Patient denies sulfa allergy. Recommend to take medication with food and probiotic. Follow up next week for surgery site check with RN. Follow up with me in 4 weeks, sooner if needed. Explained to immediately notify office/seek emergency department treatment with any increased erythema, or if swelling discharge dehiscence fever chills intractable pain or weakness. Maintain 5 lb BLT restriction. Walk as tolerated. Call with any questions. Robby Castrejon PA-C [facility] Neurosurgery Subjective: Presents for post operative appointment. [place] [facility] practice representative at appointment too with patient and states no concerns on their end. Patient not taking analgesics, has mild low back pain at times no worsening. No sciatica. No new numbness tingling weakness. No bowel/bladder dysfunction or saddle anesthesia. Spouse states thoracic incision site slightly red past few days, but no discharge or tenderness reported. No fever chills or sick symptoms. No other concerns at this time. Patient is leaving for vacation to [place] January 05 to January 16. Objective: General: Healthy, well-appearing 69 y.o. male, in NAD nontoxic appearing HENT: Nares patent with minimal clear drainage, hearing grossly intact Eyes: PERRLA, 4mm bilaterally. Sclera white, anicteric. Neuro: Awake, alert, and oriented x 3; face symmetric, speech fluent Neck: Supple, full lateral rotation Chest: Chest rise symmetric, respirations non-labored; On auscultation, breath sounds symmetric bilaterally, without crackles Cardiac: RRR, no M/G/R. DP and radial pulses 2+ bilaterally. Abdomen: soft, non-tender, non-distended Back: Image of back uploaded to chart. There is no significant tenderness to surgical sites or midline. There is no discharge or swelling. There is no crepitus or step off. Left IPG site is CDI healing well without complication. Lumbar midline incision CDI no complication. Thoracic midline incision site is slightly erythematous with fluctuance and slight swelling over site. no discharge dehiscence or tenderness. Skin: Warm and dry MSK: Manual Muscle Testing Muscle Group Right Left Hip Flexion 5 5 Knee Extension 5 5 Knee Flexion 5 5 Dorsiflexion 5 5 Plantar Flexion 5 5 EHL 5 5 Sensation intact Negative straight leg raise Normal gait documented in this encounter [facility] 11-26-2024 History of Presen t illness Narrative Patient presents today for post op incision check. Aquacel dressings removed from mid thoracic, lumbar and right flank areas. Thoracic incision approximated, some scabbing noted. No drainage, redness noted. Some irritation noted to outer skin where dressing had been. Lumbar incision approximated. Small amount of drainage noted after dressing removal, no redness or edema noted. Right flank incision approximated, no drainage, redness, or edema noted. Bruising noted around that area. Areas cleaned with chloraprep, allowed to dry. Gauze dressing applied to lumbar incision, other left open to air. Understands to call with any drainage, signs of infection, or any concerns. documented in this encounter [facility] 11-19-2024 Note DISCHARGE SUMMARY Patient: Tamra Guzman Date of : 1955 Site: [facility] Family Provider: Mike Aburto Chi, MD Admit Date: 11/18/2024 Discharge Date/Time: 11/19/24 Midday Disposition: Home Clinical Summary Hospital Course: Tamra Guzman is a 69-year-old male who had at an outside institution a spinal cord stimulator system placed. He had excellent relief of his pain with 100% pain relief by his recollection from his axial lumbosacral spinal pain and leg pain. However, the system malfunctioned. He has been interrogated by a practice representative from [employer] and noted to have multiple faults. Because of these faults, the patient also is precluded from undergoing MRI scanning. Because of the faults in the system and the poor functionality, the patient requests removal of the system as well as replacement with a new spinal cord stimulator system. In addition, he would like his left IPG to be relocated more cephalad so it does not interfere with his beltline. For this on 11/18/24 he underwent Thoracic 9-10 Laminectomy, Removal Retained SCS Electrodes, Insertion of Paddle Lead Electrode via 9-10 laminectomy, Removal of Left Flank IPG, insertion of new Left Flank IPG with Dr Andrew Guzman. He has mild to moderate post operative pain but this is controlled with oral analgesics. He has been walking with therapy and stimulator was programmed by device practice representative. He will discharge home today with close follow up next week. Discharge Diagnoses: Retained spinal cord stimulator, with malfunctioning spinal cord stimulator, and chronic axial lumbosacral pain and leg pain. Surgeries: 11/18/24 Thoracic 10-11, possible Thoracic 7-9 Laminectomy, Removal Retained SCS Electrodes, Insertion of Paddle Lead Electrode, possible Thoracic 7-8 Laminoplasty/fusion, Removal of Left Flank IPG, insertion of new Left Flank IPG. Consults: No orders of the defined types were placed in this encounter. Allergies: Bee pollen Discharge Diet: Resume home diet Condition: Good Discharge Medications: Discharge Medications New Medications Details cyclobenzaprine 5 MG tablet Commonly known as: FLEXERIL Take 1 (one) tablet (5 mg total) by mouth every 8 (eight) hours as needed for muscle spasms . Quantity: 30 tablet oxyCODONE-acetaminophen 5-325 mg per tablet Commonly known as: PERCOCET Take 1 (one) tablet by mouth every 6 (six) hours as needed Causes drowsiness. . Quantity: 28 tablet Medications To Continue Details amLODIPine 5 MG tablet Commonly known as: NORVASC Take 1 (one) tablet (5 mg total) by mouth every morning . donepeziL 10 MG tablet Commonly known as: ARICEPT 1 (one) tablet (10 mg total) every morning . famotidine 40 MG tablet Commonly known as: PEPCID Take 1 (one) tablet (40 mg total) by mouth daily in the evening . hydroxychloroquine 200 mg tablet Commonly known as: PLAQUENIL Take 1 (one) tablet (200 mg total) by mouth 2 (two) times a day . memantine 10 MG tablet Commonly known as: NAMENDA Take 1 (one) tablet (10 mg total) by mouth 2 (two) times a day . predniSONE 2 mg Tbec Take 1 (one) tablet (2 mg total) by mouth every morning . rosuvastatin 20 MG tablet Commonly known as: CRESTOR Take 1 (one) tablet (20 mg total) by mouth nightly . Stopped Medications cephALEXin 500 MG capsule Commonly known as: KEFLEX cyanocobalamin 1000 MCG tablet Commonly known as: B-12 meclizine 25 mg tablet Commonly known as: ANTIVERT Physician(s) Family Provider: Mike Aburto Chi, MD, Address: [address] [place] [address] Follow Up: No follow-up provider specified. Additional Information: Patient instructions, including activity, were given to the patient/family at discharge. Please see the After Visit Summary in the electronic medical record for details. Time spent on discharge: < 30 minutes Completed by: Robby Castrejon PA-C on 11/19/24, 3:13 PM AUTHENTICATED BY ROBBY CASTREJON, ON 11/19/2024 15:14:09 [facility] 11-19-2024 Hospital course Narrative DISCHARGE SUMMARY Patient: Tamra Guzman Date of : 1955 Site: [facility] Family Provider: Mike Aburto Chi, MD Admit Date: 11/18/2024 Discharge Date/Time: 11/19/24 Midday Disposition: Home Clinical Summary Hospital Course: Tamra Guzman is a 69-year-old male who had at an outside institution a spinal cord stimulator system placed. He had excellent relief of his pain with 100% pain relief by his recollection from his axial lumbosacral spinal pain and leg pain. However, the system malfunctioned. He has been interrogated by a practice representative from [employer] and noted to have multiple faults. Because of these faults, the patient also is precluded from undergoing MRI scanning. Because of the faults in the system and the poor functionality, the patient requests removal of the system as well as replacement with a new spinal cord stimulator system. In addition, he would like his left IPG to be relocated more cephalad so it does not interfere with his beltline. For this on 11/18/24 he underwent Thoracic 9-10 Laminectomy, Removal Retained SCS Electrodes, Insertion of Paddle Lead Electrode via 9-10 laminectomy, Removal of Left Flank IPG, insertion of new Left Flank IPG with Dr Andrew Guzman. He has mild to moderate post operative pain but this is controlled with oral analgesics. He has been walking with therapy and stimulator was programmed by device practice representative. He will discharge home today with close follow up next week. Discharge Diagnoses: Retained spinal cord stimulator, with malfunctioning spinal cord stimulator, and chronic axial lumbosacral pain and leg pain. Surgeries: 11/18/24 Thoracic 10-11, possible Thoracic 7-9 Laminectomy, Removal Retained SCS Electrodes, Insertion of Paddle Lead Electrode, possible Thoracic 7-8 Laminoplasty/fusion, Removal of Left Flank IPG, insertion of new Left Flank IPG. Consults: No orders of the defined types were placed in this encounter. Allergies: Bee pollen Discharge Diet: Resume home diet Condition: Good Discharge Medications: Discharge Medications New Medications Details cyclobenzaprine 5 MG tablet Commonly known as: FLEXERIL Take 1 (one) tablet (5 mg total) by mouth every 8 (eight) hours as needed for muscle spasms . Quantity: 30 tablet oxyCODONE-acetaminophen 5-325 mg per tablet Commonly known as: PERCOCET Take 1 (one) tablet by mouth every 6 (six) hours as needed Causes drowsiness. . Quantity: 28 tablet Medications To Continue Details amLODIPine 5 MG tablet Commonly known as: NORVASC Take 1 (one) tablet (5 mg total) by mouth every morning . donepeziL 10 MG tablet Commonly known as: ARICEPT 1 (one) tablet (10 mg total) every morning . famotidine 40 MG tablet Commonly known as: PEPCID Take 1 (one) tablet (40 mg total) by mouth daily in the evening . hydroxychloroquine 200 mg tablet Commonly known as: PLAQUENIL Take 1 (one) tablet (200 mg total) by mouth 2 (two) times a day . memantine 10 MG tablet Commonly known as: NAMENDA Take 1 (one) tablet (10 mg total) by mouth 2 (two) times a day . predniSONE 2 mg Tbec Take 1 (one) tablet (2 mg total) by mouth every morning . rosuvastatin 20 MG tablet Commonly known as: CRESTOR Take 1 (one) tablet (20 mg total) by mouth nightly . Stopped Medications cephALEXin 500 MG capsule Commonly known as: KEFLEX cyanocobalamin 1000 MCG tablet Commonly known as: B-12 meclizine 25 mg tablet Commonly known as: ANTIVERT Physician(s) Family Provider: Mike Aburto Chi, MD, Address: [address] [place] [address] Follow Up: No follow-up provider specified. Additional Information: Patient instructions, including activity, were given to the patient/family at discharge. Please see the After Visit Summary in the electronic medical record for details. Time spent on discharge: < 30 minutes Completed by: Robby Castrejon PA-C on 11/19/24, 3:13 PM documented in this encounter [facility] 11-19-2024 Hospital Note Formatting of t his note might be different from the original. Tamra Guzman is a 69-year-old male who had at an outside institution a spinal cord stimulator system placed. He had excellent relief of his pain with 100% pain relief by his recollection from his axial lumbosacral spinal pain and leg pain. However, the system malfunctioned. He has been interrogated by a practice representative from [employer] and noted to have multiple faults. Because of these faults, the patient also is precluded from undergoing MRI scanning. Because of the faults in the system and the poor functionality, the patient requests removal of the system as well as replacement with a new spinal cord stimulator system. In addition, he would like his left IPG to be relocated more cephalad so it does not interfere with his beltline. For this on 11/18/24 he underwent Thoracic 9-10 Laminectomy, Removal Retained SCS Electrodes, Insertion of Paddle Lead Electrode via 9-10 laminectomy, Removal of Left Flank IPG, insertion of new Left Flank IPG with Dr Andrew Guzman. He has mild to moderate post operative pain but this is controlled with oral analgesics. He has been walking with therapy and stimulator was programmed by device practice representative. He will discharge home today with close follow up next week. [facility] 11-19-2024 Miscellaneous Notes Tamra Guzman is a 69-year-old male who had at an outside institution a spinal cord stimulator system placed. He had excellent relief of his pain with 100% pain relief by his recollection from his axial lumbosacral spinal pain and leg pain. However, the system malfunctioned. He has been interrogated by a practice representative from [employer] and noted to have multiple faults. Because of these faults, the patient also is precluded from undergoing MRI scanning. Because of the faults in the system and the poor functionality, the patient requests removal of the system as well as replacement with a new spinal cord stimulator system. In addition, he would like his left IPG to be relocated more cephalad so it does not interfere with his beltline. For this on 11/18/24 he underwent Thoracic 9-10 Laminectomy, Removal Retained SCS Electrodes, Insertion of Paddle Lead Electrode via 9-10 laminectomy, Removal of Left Flank IPG, insertion of new Left Flank IPG with Dr Andrew Guzman. He has mild to moderate post operative pain but this is controlled with oral analgesics. He has been walking with therapy and stimulator was programmed by device practice representative. He will discharge home today with close follow up next week. Physical Therapy Plan of Care Certification Note Medicare billing rules require the provider to review and certify the physical therapy plan of care for patients in observation or outpatient status. This co-signature is to electronically certify that the above-named patient, who is under my care, requires skilled therapy services as described in the treatment plan below. I further certify that the services outlined in this plan are skilled and medically necessary. I have reviewed this plan of care for rehabilitation services and recommend that these services continue until the patient is discharged from this hospitalization or the patient is discharged from physical therapy services. Coded Admission Diagnosis Malfunction of spinal cord stimulator, initial encounter [T85.192A] Malfunction of spinal cord stimulator, subsequent encounter [T85.192D] PT Functional Diagnosis: R26.81 Unsteadiness on feet PT Goals Encounter Problems (Active) Problem: Impaired Strength Dates: Start: 11/19/24 Disciplines: PT Goal: PT- strengthening Dates: Start: 11/19/24 Expected End: 11/26/24 Description: PT - Patient will complete left right hip knee ankle strengthening exercise program 3 sets of 25 reps independently in preparation for function. Disciplines: PT Intervention: Education, Therapeutic exercise Frequency: PRN Dates: Start: 11/19/24 Problem: Mobility - Impaired Dates: Start: 11/19/24 Disciplines: PT Goal: pt- bed mobility Dates: Start: 11/19/24 Expected End: 11/26/24 Description: PT - Patient will perform bed mobility with modified independence with appropriate AE to improve functional mobility and safety. Disciplines: PT Goal: PT- sit to stand transfer Dates: Start: 11/19/24 Expected End: 11/26/24 Description: PT - Patient will perform sit to/from stand transfer with modified independence , approriate device to improve functional mobility and safety. Disciplines: PT Goal: PT- stand-pivot transfer Dates: Start: 11/19/24 Expected End: 11/26/24 Description: PT - Patient will perform stand-pivot transfer with modified independence , approriate device to improve functional mobility and safety. Disciplines: PT Goal: PT- dynamic balance Dates: Start: 11/19/24 Expected End: 11/26/24 Description: PT - Patient will perform standing dynamic balance activities with device with modified independence to improve functional mobility and safety. Disciplines: PT Goal: PT- ambulation Dates: Start: 11/19/24 Expected End: 11/26/24 Description: PT - Patient will ambulate at least 150+ feet with device with modified independence to improve functional mobility and safety. Disciplines: PT Goal: PT- stair climbing Dates: Start: 11/19/24 Expected End: 11/26/24 Description: PT - Patient will ascend and descend at least 1+ stairs with non-reciprocal technique with no rails and assistive device with modified independence to improve functional mobility and safety. Disciplines: PT Goal: PT- Mobility Other Dates: Start: 11/19/24 Expected End: 11/26/24 Description: PT- Patient will verbalize and demonstrate all back precautions with 100% accuracy needing no cues from therapist to improve safety with functional tasks. Disciplines: PT Intervention: Education, Assistive device training Frequency: PRN Dates: Start: 11/19/24 Intervention: Education, Bed mobility training Frequency: PRN Dates: Start: 11/19/24 Intervention: Education, Balance training Frequency: PRN Dates: Start: 11/19/24 Description: REMINDER(s): Reinforce education provided by Physical Therapy related to balance training. Intervention: Education, Coordination training Frequency: PRN Dates: Start: 11/19/24 Intervention: Education, Gait training Frequency: PRN Dates: Start: 11/19/24 Intervention: Education, Manual therapy Frequency: PRN Dates: Start: 11/19/24 Intervention: Education, stair training Frequency: PRN Dates: Start: 11/19/24 Intervention: Education, Therapeutic exercise Frequency: PRN Dates: Start: 11/19/24 Intervention: Education, Transfer training Frequency: PRN Dates: Start: 11/19/24 Intervention: Education, Precautions Frequency: PRN Dates: Start: 11/19/24 Frequency of Treatment: 5 days per week This physical Therapy Plan of Care will be carried out until: 1.) The PT plan has been resolved or 2.) The patient is discharged from the acute care hospital Cosigned by Andrew Guzman MD at 11/19/2024 3:11 PM EST Associated attestation - Andrew Guzman MD - 11/19/2024 3:11 PM EST I attest. Problem: Actual or potential alteration in health Goal: Absence of healthcare acquired conditions Outcome: Partially Met Goal: Knowledge of Interdisciplinary Plan of Care Outcome: Partially Met Goal: Knowledge of Enviroment Outcome: Partially Met Problem: Pain Goal: Reduced pain sensation Outcome: Partially Met Goal: Control of acute pain to acceptable level Outcome: Partially Met Goal: Able to cope with pain Outcome: Partially Met Goal: Able to achieve maximum level of physical functioning Outcome: Partially Met Goal: Able to achieve maximum level of psychosocial functioning Outcome: Partially Met Brief Post Operative Note Patient Name: Tamra Guzman : 1955 (69 y.o.) Date of Service: 11/18/2024 [facility]: [id number] Procedure(s): Thoracic 9-10 Laminectomy, Removal Retained SCS Electrodes, Insertion of Paddle Lead Electrode via 9-10 laminectomy, Removal of Left Flank IPG, insertion of new Left Flank IPG. Pre-Operative Diagnoses: * Malfunction of spinal cord stimulator, initial encounter [T85.192A] Post-Operative Diagnoses: * Malfunction of spinal cord stimulator, initial encounter [T85.192A] Surgeons and Role: * Andrew Guzman MD - Primary Anesthesiologist: Ari Hernandez MD BRANCH MECHANIC: Brown Young CRNA Powder Expert: Lisandro Starr RN Automatic Thread Winder: Lashae Lopez, TECHNOLOGIST Powder Expert Relief: Belkis Macias RN Scrub Person: Celia Castillo ST Anesthesia Specialist: Andra Elizabeth Social Group Worker: Nadia Christine Wendy E, PSA Scrub Person Assist: Nadia Aquino RN Operative findings: Epidural scarring. Intra and immediate post-operative complications: none Type of anesthesia used: General Estimated blood loss: 300 mL Estimated urine output: Refer to surgical log Specimen(s): * No specimens in log * Implant(s): Implant Name Type Inv. Item Serial No. Manager Clinical Services Lot No. [id number] No. Used Action HEMOSTAT 2 X 4IN SURGICEL FIBRILLAR - [id number] HEMOSTAT 2 X 4IN SURGICEL FIBRILLAR ETHICON [id number] N/A 1 Implanted HEMOSTAT 8 X 12.5CM X 10MM SURGIFOAM GELATIN SPONGE - [id number] HEMOSTAT 8 X 12.5CM X 10MM SURGIFOAM GELATIN SPONGE ETHICON N/A 1 Implanted HEMOSTAT 4 X 8IN SURGICEL ORIGINAL ABSORBABLE - [id number] HEMOSTAT 4 X 8IN SURGICEL ORIGINAL ABSORBABLE Ho [employer] Ho [id number] N/A 1 Implanted LEAD 60CM PENTA - [id number] LEAD 60CM [address] [id number] [place] N/A 1 Implanted SEALANT 5ML HEMOSTATIC MATRIX FAST PREP FLOSEAL W/ RECOTHROM - [id number] SEALANT 5ML HEMOSTATIC MATRIX FAST PREP FLOSEAL W/ RECOTHROM SHAHID BIO [id number] N/A 1 Implanted SEALANT 5ML HEMOSTATIC MATRIX FAST PREP FLOSEAL W/ RECOTHROM - [id number] SEALANT 5ML HEMOSTATIC MATRIX FAST PREP FLOSEAL W/ RECOTHROM SHAHID BIO [id number] N/A 1 Implanted GENERATOR NEUROSTIMULATOR IMPLANTABLE XR5 PROCLAIM - [id number] GENERATOR NEUROSTIMULATOR IMPLANTABLE XR5 PROCLAIM [id number] [place] N/A 1 Implanted Drain(s): * No LDAs found * Wound(s): Wound 11/18/24 Surgical Wound Thoracic Spine (Active) Dressing Status Clean;Dry;Intact 11/18/24 1426 Drainage Amount None 11/18/24 1426 Wound Closure Sutures;Surgical Adhesive 10/22/24 0002 Andrew Guzman MD 11/18/2024 2:32 PM TAMRA GUZMAN [facility] [id number] 1955 DATE 11/18/2024 OPERATIVE REPORT SURGEON ANDREW GUZMAN MD PREOPERATIVE DIAGNOSES Retained spinal cord stimulator, with malfunctioning spinal cord stimulator, and chronic axial lumbosacral pain and leg pain. POSTOPERATIVE DIAGNOSES Retained spinal cord stimulator, with malfunctioning spinal cord stimulator, and chronic axial lumbosacral pain and leg pain. PROCEDURES 1. Removal of retained spinal cord stimulator, bilateral electrodes via T10 laminectomy. 2. Removal of left flank implantable pulse generator via separate incision. 3. Insertion of new paddle spinal cord stimulator, dorsal column electrode via T9-T10 laminectomy. 4. Insertion of left flank implantable pulse generator. ANESTHESIA General. INDICATION Tamra Guzman is a 69-year-old male who had at an outside institution a spinal cord stimulator system placed. He had excellent relief of his pain with 100% pain relief by his recollection from his axial lumbosacral spinal pain and leg pain. However, the system has now malfunctioned. He has been interrogated by a practice representative from [employer] and noted to have multiple faults. Because of these faults, the patient also is precluded from undergoing MRI scanning. Because of the faults in the system and the poor functionality, the patient requests removal of the system as well as replacement with a new spinal cord stimulator system. In addition, he would like his left IPG to be relocated more cephalad so it does not interfere with his beltline. PROCEDURE IN DETAIL The procedure was performed in OR #2. The patient was intubated, and general anesthesia was established. An appropriate time-out was performed with Neurosurgery, Anesthesiology, and nursing teams, and all agreed with this patient's identity and planned procedure. After intubation and establishing general anesthesia, he was carefully rotated in the prone position on a Bhaskar spine frame, taking care to pad all pressure points. He received 2 g of Ancef at the onset of the procedure for antibiotic prophylaxis. Fluoroscopy was used to positively identify the positions of the leads after reference purposes. Next, the thoracolumbar sacral area and left flank area were cleansed with alcohol, prepped with ChloraPrep, and draped in the usual sterile fashion. 10 cc of a 1:1 mixture of 0.5% Marcaine plain with 1% lidocaine was used for local infiltration purposes of the skin and soft tissues at all 3 incision sites. First, an incision was made spanning the T9-T10 laminar areas in the midline. Points of bleeding were controlled with bipolar cautery. Monopolar cautery was used to dissect down through the thoracic dorsal fascia, exposing the lamina of T9 and T10. A self-retaining retractor was placed. Throughout the case, small amounts of Floseal, thrombin-soaked Gelfoam, Surgicel, and Fibrillar were used for hemostasis, all of which were removed from all operative sites prior to closure. The spinous process of T10 was resected. Next, a high-speed Midas Dat drill was then used to thin the lamina of the T10 level. Points of bony bleeding were controlled with a liberal application of bone wax. Next, a laminectomy was performed, removing hypertrophied ligamentum flavum and laminar bone from T10 to expose the epidural space. There was significant scarring in the epidural space, and the 2 midline electrodes were noted to be scarred into place. Very carefully using sharp dissection, the dorsal most aspect of the epidural scar was resected to free the electrodes. A Vectra was very easily slid from their epidural scar and pseudocapsule in an inferior caudal fashion. Next, the pre-existing incision at the L2 level was reopened to expose in the subcutaneous tissues after cutting the skin with a 10 blade, the anchor boots that had been left previously. [place] boots were freed from anchor sutures, and the leads were then once again removed, from the laminectomy site by gently pulling to this new incision site. A third incision was then made, reopening the pre-existing scar in the left flank. The pseudocapsule surrounding the IPG was opened, and the IPG was then explanted. The wires were cut at the IPG, and then these wires were then pulled through to the L2 incision. All aspects and components of this spinal cord stimulator system were removed and then discarded. Next, the pseudocapsule was closed with interrupted 0 Vicryl suture at the IPG site. Next, a new paddle electrode was placed. This because of the scar necessitated T9 laminectomy. T9 laminectomy was then performed using the high-speed Midas Dat drill of the inferior half of T9, followed by opening further with Kerrison rongeurs to achieve a plane superior to the area of epidural scarring from the electrodes. Next, an Driver Penta lead passed without difficulty from caudad to cephalad. Fluoroscopy was then used to determine the location of this electrode. This paddle electrode's most superior row leads was at the T7-8 disk space and then spanned the T8 vertebral body level to the T8-T9 disk space, in the midline. The leads were then anchored with anchor boots, which were secured with 2-0 silk ties, and then the 2-0 silk ties were then secured to surrounding fascia with further 2-0 silk ties. A tunneling straw was used to tunnel from this laminectomy site to the IPG site. A new Driver Proclaim IPG was brought into the field, and then leads were inserted into the headers. Initial interrogation by the Driver practice representative did demonstrate 3 high impedance contacts, but with time, this receded to a single high impedance contact, which also was present when tested with cables. This most likely reflected operative fluid and was felt to be a reasonable chance of complete dissipation to represent a normally functioning unit with the passage of a few days in the future. Therefore, no further revisions were felt necessary. All operative sites were irrigated with Irrisept, a total of 450 cc, followed by 300 cc of saline. Hemostasis was excellent, and at no time was there any evidence of cerebrospinal fluid leakage. The redundant wires were looped posterior to the IPG, and the IPG was then implanted in the IPG pocket and then secured in a more superior position at the patient's request after extending the pocket in a superior direction with sharp dissection. The IPG was anchored with 0 Vicryl. The thoracic fascia was closed with interrupted inverted 0 Vicryl suture. The deep dermal layer at all sites was closed with inverted interrupted 2-0 Vicryl suture, followed by closure of the skin at all 3 sites with 4-0 Monocryl subcuticular suture, followed by closure of skin at all sites with Dermabond and Prineo. Each incision was closed with an Aquacel antibacterial occlusive dressing. The patient tolerated the procedure well, was rotated in the supine position, extubated, and transferred to PACU in stable condition. ANDREW GUZMAN MD D 11/18/2024 14:23 [id number] T 11/18/2024 15:38 [facility] documented in this encounter [facility] 11-19-2024 Plan of care note Physical Therapy Plan of Care Certification Note Medicare billing rules require the provider to review and certify the physical therapy plan of care for patients in observation or outpatient status. This co-signature is to electronically certify that the above-named patient, who is under my care, requires skilled therapy services as described in the treatment plan below. I further certify that the services outlined in this plan are skilled and medically necessary. I have reviewed this plan of care for rehabilitation services and recommend that these services continue until the patient is discharged from this hospitalization or the patient is discharged from physical therapy services. Coded Admission Diagnosis Malfunction of spinal cord stimulator, initial encounter [T85.192A] Malfunction of spinal cord stimulator, subsequent encounter [T85.192D] PT Functional Diagnosis: R26.81 Unsteadiness on feet PT Goals Encounter Problems (Active) Problem: Impaired Strength Dates: Start: 11/19/24 Disciplines: PT Goal: PT- strengthening Dates: Start: 11/19/24 Expected End: 11/26/24 Description: PT - Patient will complete left right hip knee ankle strengthening exercise program 3 sets of 25 reps independently in preparation for function. Disciplines: PT Intervention: Education, Therapeutic exercise Frequency: PRN Dates: Start: 11/19/24 Problem: Mobility - Impaired Dates: Start: 11/19/24 Disciplines: PT Goal: pt- bed mobility Dates: Start: 11/19/24 Expected End: 11/26/24 Description: PT - Patient will perform bed mobility with modified independence with appropriate AE to improve functional mobility and safety. Disciplines: PT Goal: PT- sit to stand transfer Dates: Start: 11/19/24 Expected End: 11/26/24 Description: PT - Patient will perform sit to/from stand transfer with modified independence , approriate device to improve functional mobility and safety. Disciplines: PT Goal: PT- stand-pivot transfer Dates: Start: 11/19/24 Expected End: 11/26/24 Description: PT - Patient will perform stand-pivot transfer with modified independence , approriate device to improve functional mobility and safety. Disciplines: PT Goal: PT- dynamic balance Dates: Start: 11/19/24 Expected End: 11/26/24 Description: PT - Patient will perform standing dynamic balance activities with device with modified independence to improve functional mobility and safety. Disciplines: PT Goal: PT- ambulation Dates: Start: 11/19/24 Expected End: 11/26/24 Description: PT - Patient will ambulate at least 150+ feet with device with modified independence to improve functional mobility and safety. Disciplines: PT Goal: PT- stair climbing Dates: Start: 11/19/24 Expected End: 11/26/24 Description: PT - Patient will ascend and descend at least 1+ stairs with non-reciprocal technique with no rails and assistive device with modified independence to improve functional mobility and safety. Disciplines: PT Goal: PT- Mobility Other Dates: Start: 11/19/24 Expected End: 11/26/24 Description: PT- Patient will verbalize and demonstrate all back precautions with 100% accuracy needing no cues from therapist to improve safety with functional tasks. Disciplines: PT Intervention: Education, Assistive device training Frequency: PRN Dates: Start: 11/19/24 Intervention: Education, Bed mobility training Frequency: PRN Dates: Start: 11/19/24 Intervention: Education, Balance training Frequency: PRN Dates: Start: 11/19/24 Description: REMINDER(s): Reinforce education provided by Physical Therapy related to balance training. Intervention: Education, Coordination training Frequency: PRN Dates: Start: 11/19/24 Intervention: Education, Gait training Frequency: PRN Dates: Start: 11/19/24 Intervention: Education, Manual therapy Frequency: PRN Dates: Start: 11/19/24 Intervention: Education, stair training Frequency: PRN Dates: Start: 11/19/24 Intervention: Education, Therapeutic exercise Frequency: PRN Dates: Start: 11/19/24 Intervention: Education, Transfer training Frequency: PRN Dates: Start: 11/19/24 Intervention: Education, Precautions Frequency: PRN Dates: Start: 11/19/24 Frequency of Treatment: 5 days per week This physical Therapy Plan of Care will be carried out until: 1.) The PT plan has been resolved or 2.) The patient is discharged from the acute care hospital Cosigned by Andrew Guzman MD at 11/19/2024 3:11 PM EST Associated attestation - Andrew Guzman MD - 11/19/2024 3:11 PM EST I attest. [facility] 11-19-2024 Note Admitted with these risk variables:None. Please see assessment and plan for further details. Impression. Postop day #1, removal and replacement of spinal cord stimulator system via T9-10 laminectomy. Plan. Will program system today. Will continue to work with physical therapy. If pain is controlled adequately patient we discharged home. Follow-up in neurosurgery clinic in 1 week Subjective. Patient denies dyspnea or chest pain. He has some moderate thoracic pain and left flank pain at IPG site. Objective. Awake alert oriented pleasant male. Speech fluent. Straight leg raising negative cause sciatica. Power at the iliopsoas glutei quadricep hamstrings hip AB adductor's and dorsi and plantar flexors of the feet are 5-5 and equal. Incision sites clean flat and dry with no drainage. AUTHENTICATED BY ANDREW GUZMAN, ON 11/19/2024 08:44:27 [facility] 11-19-2024 History of Presen t illness Narrative Admitted with these risk variables:None. Please see assessment and plan for further details. Impression. Postop day #1, removal and replacement of spinal cord stimulator system via T9-10 laminectomy. Plan. Will program system today. Will continue to work with physical therapy. If pain is controlled adequately patient we discharged home. Follow-up in neurosurgery clinic in 1 week Subjective. Patient denies dyspnea or chest pain. He has some moderate thoracic pain and left flank pain at IPG site. Objective. Awake alert oriented pleasant male. Speech fluent. Straight leg raising negative cause sciatica. Power at the iliopsoas glutei quadricep hamstrings hip AB adductor's and dorsi and plantar flexors of the feet are 5-5 and equal. Incision sites clean flat and dry with no drainage. documented in this encounter [facility] 11-19-2024 Consult note Formatting of th is note is different from the original. Physical Therapy PHYSICAL THERAPY EVALUATION and TREATMENT NOTE PHYSICAL THERAPY EVALUATION Skilled Therapy Needs After Discharge Anticipate Resolution of Current Assessment Limitations Including: Pain, Mechanical Barriers, Social Support Are meter and service line inspector Therapy Services Needed After Discharge: Yes Intensity of meter and service line inspector Therapy: 2-3 days per week Anticipated Duration of meter and service line inspector Therapy: Duration 10 - 30 days PT DME Recommendation: Wheeled Walker PT DME Rationale: Patient's condition prevents him/her from accomplishing ADL without recommended equipment, Patient's condition creates an increased risk of safety hazard without recommended equipment, Unreasonable time frame to complete ADL without recommended equipment, Patient will require increased level of care without recommended equipment Rehab Potential: Good, For goals Outcomes Measures Prior Function - Basic Mobility Raw Score: 24 Points Prior Function - Basic Mobility % Impaired: 0% AM-PAC Basic Mobility Raw Score: 18 Points AM-PAC Basic Mobility % Impaired: 40.47% Physical Therapy Assessment History: The following factors influence the patient's participation in the PT plan of care: Personal Factors: Age, Social Barriers Environmental Factors: Multi-level home, Steps to enter home The following co-morbidities (from this admission or prior) influence the patient's participation in this plan of care: see H&P S/p Thoracic 9-10 Laminectomy, Removal Retained SCS Electrodes, Insertion of Paddle Lead Electrode via 9-10 laminectomy, Removal of Left Flank IPG, insertion of new Left Flank IPG Number of History elements affecting this patient's PT plan of care: 3 or more Examination of Body Systems: The patient presents with: Musculoskeletal impairments: Strength, Pain, Functional Endurance Neurologic Impairments: Balance, Vision, Hearing Cardiopulmonary Impairments: Activity Tolerance Integumentary Impairments: Tissue Healing, Active Wound. These impairments result in limitations of Gait, Functional Transfers, Stair-Climbing, Safety, Activity Tolerance. These impairments result in restrictions of Household mobility, Community mobility, Leisure activities. Number of Body Systems elements affecting this patient's PT plan of care: 3 or more. Clinical Presentation: The patient's clinical presentation for this PT evaluation is evolving with changing characteristics as evidenced by current PT documentation. Activity Tolerance Activity Tolerance: (on room air) Therapy Precautions Orthotic Devices: No Weight Bearing Status: WFL (no brace needed per orders) General Rehab Precautions: Back, Fall risk Strength Assessment Strength RLE RLE Overall Strength: 4/5 (as observed in function (with ambulation and functional transfers)) Strength LLE LLE Overall Strength: 4/5 (as observed in function (with ambulation and functional transfers)) Balance Assessment Sitting Balance - Static: Supervision (sitting EOB) Loss of Balance - Sitting Static: (none) Sitting Balance - Dynamic: Supervision, Contact guard assist (sitting EOB) Loss of Balance - Sitting Dynamic: (none) Standing Balance - Static: Stand by assist, Contact guard assist Aviation Consultant - Standing Static: wheeled walker Loss of Balance- Standing Static: intermittent Standing Balance - Dynamic: Stand by assist, Contact guard assist Aviation Consultant - Standing Dynamic: wheeled walker Loss of Balance- Standing Dynamic: intermittent Bed Mobility Rolling: Stand by assist, Head of bed flat (needing increased time and effort) Supine to Sit: Supervision, Head of bed flat (needing increased time and effort) Aviation Consultant: bedrails Transfers Sit to Stand: Stand by assist, Contact guard assist Aviation Consultant: wheeled walker Toilet Transfers: Stand by assist, Contact guard assist, Grab bars, Adaptive equipment, Additional time Gait/Locomotion Gait Assistance: Stand by assist, Contact guard assist Assistive Device: wheeled walker Distance: 75 Feet (over even surface with 4 turns) Pattern: step to, step through, R decreased step length, L decreased step length, R impaired heel strike, L impaired heel strike, over reliance on upper extremities, forward flexed, decreased riccardo (steps per minute) Gait Loss(es) of Balance: intermittent, with dual tasks or distractions Environment/Terrain: open/community environment, multiple distractions Home Living Obtained Home Living and PLOF info from: Patient Lives With: Spouse (Nely and 2 dogs) Type of Home: House Home Layout: Two level, Bed on main level, Full bath on main level (laundry on main level; has no reason to go to second level or basement) Steps to enter home: Yes Rails to enter home: None Number of stairs to enter home: 1 (from garage) Bathroom Shower/Tub: Walk-in shower, Main level Bathroom Toilet: Raised, Main level Bathroom Equipment: Grab bars in shower, Bulit-in shower seat, Hand-held showerhead Mobility Equipment: Cane ADL Equipment: Meter And Service Line Inspector Additional Objective Details - Home Living: Pt reports standing to shower with use of grab bars and sleeping in a standard loyda size bed with no use of bed rails. Prior Level of Function Receives Help From: Spouse (as needed) Level of [place] - Transfers/Ambulation/Mobility: Independent with functional transfers, Independent with household ambulation, Independent with community ambulation Level of [place] - ADLs: Independent Level of [place] - Homemaking: Independent Driving: Patient drives Vocational: Retired Leisure: boating, woodworking, spending time with family, reading Subjective Impression - Prior Function: Pt reports being IND in all areas of mobility and ADLs with no use of device at baseline. Pt reports having a cochlear implant on the R in which he on occ has episodes of vertigo. Pt notes that his spouse is retired and would be able to provide assist and help at discharge if needed as she has no medical or physical limitations. Pt is R handed. Pt notes having 3 falls within the past year secondary to LOB and instability. PHYSICAL THERAPY TREATMENT NOTE Total Treatment Time (Total Session Time): 45 Minutes Total Timed Code Treatment Minutes: 25 Minutes Gait Training Skilled Intervention Provided: verbal cues, facilitation, monitoring patient response with activity For: attention to task, device adjustment fit to patient, device management and safe use of device, gait sequence, gait technique, improved posture, initiation of task, self-monitoring during activity, proper body mechanics Resulting in: improved activity tolerance, improved awareness of gait impairments, improved functional independence, increased insight into deficits, improved performance, improved safety, increased self-management of symptoms and impairments, increased upright tolerance for functional tasks, decreased assistance required, decreasing fall risk, decreased gait impairments, decreased pain, decreased reliance on device/support, reduced risk of secondary impairment(s) Therapeutic Activities Bed Mobility Skilled Intervention Provided: verbal cues, facilitation, monitoring patient response with activity, monitoring patient response with positional changes, provided step by step instructions, patient education For: attention to task, initiation of task, logroll technique, proper body mechanics, safe use of bedrails and/or equipment, safety during functional tasks, self-monitoring during activity, sequencing of movement Resulting in: improved activity tolerance, improved awareness, improved functional independence, improved performance, improved safety, increased initiation in mobility task(s), increased insight into deficits, increased participation in mobility task(s), increased upright tolerance for functional tasks, decreased assistance required, decreased reliance on device/support, reduced risk of secondary impairment(s) Transfers Skilled Intervention Provided: verbal cues, tactile cues, facilitation, monitoring patient response with activity, monitoring patient response with positional changes, provided step by step instructions, patient education For: UE positioning, attention to task, fall prevention, initiation of task, proper body mechanics, safety during functional tasks, safe use of AD and/or equipment, self-monitoring during activity, sequencing of movement Resulting in: improved activity tolerance, improved adherence to precautions, improved functional independence, improved balance, improved performance, improved safety, increased insight into deficits, increased self-management of symptoms and impairments, increased upright tolerance for functional tasks, decreased assistance required, decreasing fall risk, decreased pain, decreased reliance on device/support, reduced risk of secondary impairment(s) Functional Transfers (Car and/or Toilet Transfers) Skilled Intervention Provided: verbal cues, facilitation, monitoring patient response with activity, monitoring patient response with positional changes, provided step by step instructions, patient education For: UE positioning, breathing techniques, attention to task, controlled descent, energy conservation, efficient movement, fall prevention, initiation of task, proper body mechanics, safe use of AD and/or equipment, safety during functional tasks, self-monitoring during activity, sequencing of movement Resulting in: improved activity tolerance, improved adherence to precautions, improved awareness, improved functional independence, improved performance, improved safety, increased insight into deficits, increased self-management of symptoms and impairments, increased upright tolerance for functional tasks, decreased assistance required, decreased pain, decreased reliance on device/support, reduced risk of secondary impairment(s) Additional Treatment Details Greeted pt lying supine in bed upon arrival, agreeable to PT eval and treat at this time. Education provided throughout session on benefits/expectations of PT, necessary safety precautions (back), importance of mobility and upright activity in prevention of secondary impairment, self-monitoring of symptoms at rest and with activity, as well as proper technique/sequencing of all functional tasks completed in session. Following functional mobility, pt ends session sitting up in recliner with all personal needs and call button within reach. Pt reports improvement in pain with mobility. Nursing notified of current status. Past Medical History: Diagnosis Date GERD (gastroesophageal reflux disease) Hyperlipidemia Hypertension Lumbar spondylosis Rheumatic fever as a child Sleep apnea, obstructive uses cpap Past Surgical History: Procedure Laterality Date COCHLEAR IMPLANT HERNIA REPAIR IR NEUROSTIMULATOR IMPLANT 12/14/2021 ROTATOR CUFF REPAIR Right TOTAL KNEE ARTHROPLASTY Bilateral VASECTOMY For complete objective data, detailed plan of care and patient education refer to: PT Evaluation flowsheet, PT Evaluation and Treatment flowsheet, PT Treatment flowsheet, patient Plan of Care, Plan of Care progress note, and Patient Education. This note stands as the current Discharge Summary upon patient discharge from the hospital or completion of Physical Therapy Plan. [facility] 11-19-2024 Consult note Formatting of th is note is different from the original. Physical Therapy PHYSICAL THERAPY EVALUATION and TREATMENT NOTE PHYSICAL THERAPY EVALUATION Skilled Therapy Needs After Discharge Anticipate Resolution of Current Assessment Limitations Including: Pain, Mechanical Barriers, Social Support Are meter and service line inspector Therapy Services Needed After Discharge: Yes Intensity of meter and service line inspector Therapy: 2-3 days per week Anticipated Duration of meter and service line inspector Therapy: Duration 10 - 30 days PT DME Recommendation: Wheeled Walker PT DME Rationale: Patient's condition prevents him/her from accomplishing ADL without recommended equipment, Patient's condition creates an increased risk of safety hazard without recommended equipment, Unreasonable time frame to complete ADL without recommended equipment, Patient will require increased level of care without recommended equipment Rehab Potential: Good, For goals Outcomes Measures Prior Function - Basic Mobility Raw Score: 24 Points Prior Function - Basic Mobility % Impaired: 0% AM-PAC Basic Mobility Raw Score: 18 Points AM-PAC Basic Mobility % Impaired: 40.47% Physical Therapy Assessment History: The following factors influence the patient's participation in the PT plan of care: Personal Factors: Age, Social Barriers Environmental Factors: Multi-level home, Steps to enter home The following co-morbidities (from this admission or prior) influence the patient's participation in this plan of care: see H&P S/p Thoracic 9-10 Laminectomy, Removal Retained SCS Electrodes, Insertion of Paddle Lead Electrode via 9-10 laminectomy, Removal of Left Flank IPG, insertion of new Left Flank IPG Number of History elements affecting this patient's PT plan of care: 3 or more Examination of Body Systems: The patient presents with: Musculoskeletal impairments: Strength, Pain, Functional Endurance Neurologic Impairments: Balance, Vision, Hearing Cardiopulmonary Impairments: Activity Tolerance Integumentary Impairments: Tissue Healing, Active Wound. These impairments result in limitations of Gait, Functional Transfers, Stair-Climbing, Safety, Activity Tolerance. These impairments result in restrictions of Household mobility, Community mobility, Leisure activities. Number of Body Systems elements affecting this patient's PT plan of care: 3 or more. Clinical Presentation: The patient's clinical presentation for this PT evaluation is evolving with changing characteristics as evidenced by current PT documentation. Activity Tolerance Activity Tolerance: (on room air) Therapy Precautions Orthotic Devices: No Weight Bearing Status: WFL (no brace needed per orders) General Rehab Precautions: Back, Fall risk Strength Assessment Strength RLE RLE Overall Strength: 4/5 (as observed in function (with ambulation and functional transfers)) Strength LLE LLE Overall Strength: 4/5 (as observed in function (with ambulation and functional transfers)) Balance Assessment Sitting Balance - Static: Supervision (sitting EOB) Loss of Balance - Sitting Static: (none) Sitting Balance - Dynamic: Supervision, Contact guard assist (sitting EOB) Loss of Balance - Sitting Dynamic: (none) Standing Balance - Static: Stand by assist, Contact guard assist Aviation Consultant - Standing Static: wheeled walker Loss of Balance- Standing Static: intermittent Standing Balance - Dynamic: Stand by assist, Contact guard assist Aviation Consultant - Standing Dynamic: wheeled walker Loss of Balance- Standing Dynamic: intermittent Bed Mobility Rolling: Stand by assist, Head of bed flat (needing increased time and effort) Supine to Sit: Supervision, Head of bed flat (needing increased time and effort) Aviation Consultant: bedrails Transfers Sit to Stand: Stand by assist, Contact guard assist Aviation Consultant: wheeled walker Toilet Transfers: Stand by assist, Contact guard assist, Grab bars, Adaptive equipment, Additional time Gait/Locomotion Gait Assistance: Stand by assist, Contact guard assist Assistive Device: wheeled walker Distance: 75 Feet (over even surface with 4 turns) Pattern: step to, step through, R decreased step length, L decreased step length, R impaired heel strike, L impaired heel strike, over reliance on upper extremities, forward flexed, decreased riccardo (steps per minute) Gait Loss(es) of Balance: intermittent, with dual tasks or distractions Environment/Terrain: open/community environment, multiple distractions Home Living Obtained Home Living and PLOF info from: Patient Lives With: Spouse (Nely and 2 dogs) Type of Home: House Home Layout: Two level, Bed on main level, Full bath on main level (laundry on main level; has no reason to go to second level or basement) Steps to enter home: Yes Rails to enter home: None Number of stairs to enter home: 1 (from garage) Bathroom Shower/Tub: Walk-in shower, Main level Bathroom Toilet: Raised, Main level Bathroom Equipment: Grab bars in shower, Bulit-in shower seat, Hand-held showerhead Mobility Equipment: Cane ADL Equipment: Meter And Service Line Inspector Additional Objective Details - Home Living: Pt reports standing to shower with use of grab bars and sleeping in a standard loyda size bed with no use of bed rails. Prior Level of Function Receives Help From: Spouse (as needed) Level of [place] - Transfers/Ambulation/Mobility: Independent with functional transfers, Independent with household ambulation, Independent with community ambulation Level of [place] - ADLs: Independent Level of [place] - Homemaking: Independent Driving: Patient drives Vocational: Retired Leisure: boating, woodworking, spending time with family, reading Subjective Impression - Prior Function: Pt reports being IND in all areas of mobility and ADLs with no use of device at baseline. Pt reports having a cochlear implant on the R in which he on occ has episodes of vertigo. Pt notes that his spouse is retired and would be able to provide assist and help at discharge if needed as she has no medical or physical limitations. Pt is R handed. Pt notes having 3 falls within the past year secondary to LOB and instability. PHYSICAL THERAPY TREATMENT NOTE Total Treatment Time (Total Session Time): 45 Minutes Total Timed Code Treatment Minutes: 25 Minutes Gait Training Skilled Intervention Provided: verbal cues, facilitation, monitoring patient response with activity For: attention to task, device adjustment fit to patient, device management and safe use of device, gait sequence, gait technique, improved posture, initiation of task, self-monitoring during activity, proper body mechanics Resulting in: improved activity tolerance, improved awareness of gait impairments, improved functional independence, increased insight into deficits, improved performance, improved safety, increased self-management of symptoms and impairments, increased upright tolerance for functional tasks, decreased assistance required, decreasing fall risk, decreased gait impairments, decreased pain, decreased reliance on device/support, reduced risk of secondary impairment(s) Therapeutic Activities Bed Mobility Skilled Intervention Provided: verbal cues, facilitation, monitoring patient response with activity, monitoring patient response with positional changes, provided step by step instructions, patient education For: attention to task, initiation of task, logroll technique, proper body mechanics, safe use of bedrails and/or equipment, safety during functional tasks, self-monitoring during activity, sequencing of movement Resulting in: improved activity tolerance, improved awareness, improved functional independence, improved performance, improved safety, increased initiation in mobility task(s), increased insight into deficits, increased participation in mobility task(s), increased upright tolerance for functional tasks, decreased assistance required, decreased reliance on device/support, reduced risk of secondary impairment(s) Transfers Skilled Intervention Provided: verbal cues, tactile cues, facilitation, monitoring patient response with activity, monitoring patient response with positional changes, provided step by step instructions, patient education For: UE positioning, attention to task, fall prevention, initiation of task, proper body mechanics, safety during functional tasks, safe use of AD and/or equipment, self-monitoring during activity, sequencing of movement Resulting in: improved activity tolerance, improved adherence to precautions, improved functional independence, improved balance, improved performance, improved safety, increased insight into deficits, increased self-management of symptoms and impairments, increased upright tolerance for functional tasks, decreased assistance required, decreasing fall risk, decreased pain, decreased reliance on device/support, reduced risk of secondary impairment(s) Functional Transfers (Car and/or Toilet Transfers) Skilled Intervention Provided: verbal cues, facilitation, monitoring patient response with activity, monitoring patient response with positional changes, provided step by step instructions, patient education For: UE positioning, breathing techniques, attention to task, controlled descent, energy conservation, efficient movement, fall prevention, initiation of task, proper body mechanics, safe use of AD and/or equipment, safety during functional tasks, self-monitoring during activity, sequencing of movement Resulting in: improved activity tolerance, improved adherence to precautions, improved awareness, improved functional independence, improved performance, improved safety, increased insight into deficits, increased self-management of symptoms and impairments, increased upright tolerance for functional tasks, decreased assistance required, decreased pain, decreased reliance on device/support, reduced risk of secondary impairment(s) Additional Treatment Details Greeted pt lying supine in bed upon arrival, agreeable to PT eval and treat at this time. Education provided throughout session on benefits/expectations of PT, necessary safety precautions (back), importance of mobility and upright activity in prevention of secondary impairment, self-monitoring of symptoms at rest and with activity, as well as proper technique/sequencing of all functional tasks completed in session. Following functional mobility, pt ends session sitting up in recliner with all personal needs and call button within reach. Pt reports improvement in pain with mobility. Nursing notified of current status. Past Medical History: Diagnosis Date GERD (gastroesophageal reflux disease) Hyperlipidemia Hypertension Lumbar spondylosis Rheumatic fever as a child Sleep apnea, obstructive uses cpap Past Surgical History: Procedure Laterality Date COCHLEAR IMPLANT HERNIA REPAIR IR NEUROSTIMULATOR IMPLANT 12/14/2021 ROTATOR CUFF REPAIR Right TOTAL KNEE ARTHROPLASTY Bilateral VASECTOMY For complete objective data, detailed plan of care and patient education refer to: PT Evaluation flowsheet, PT Evaluation and Treatment flowsheet, PT Treatment flowsheet, patient Plan of Care, Plan of Care progress note, and Patient Education. This note stands as the current Discharge Summary upon patient discharge from the hospital or completion of Physical Therapy Plan. documented in this encounter [facility] 11-18-2024 Plan of care note Problem: Actual or potential alteration in health Goal: Absence of healthcare acquired conditions Outcome: Partially Met Goal: Knowledge of Interdisciplinary Plan of Care Outcome: Partially Met Goal: Knowledge of Enviroment Outcome: Partially Met Problem: Pain Goal: Reduced pain sensation Outcome: Partially Met Goal: Control of acute pain to acceptable level Outcome: Partially Met Goal: Able to cope with pain Outcome: Partially Met Goal: Able to achieve maximum level of physical functioning Outcome: Partially Met Goal: Able to achieve maximum level of psychosocial functioning Outcome: Partially Met [facility] 11-18-2024 Procedure note Brief Post Operative Note Patient Name: Tamra Guzman : 1955 (69 y.o.) Date of Service: 11/18/2024 CSN: [id number] Procedure(s): Thoracic 9-10 Laminectomy, Removal Retained SCS Electrodes, Insertion of Paddle Lead Electrode via 9-10 laminectomy, Removal of Left Flank IPG, insertion of new Left Flank IPG. Pre-Operative Diagnoses: * Malfunction of spinal cord stimulator, initial encounter [T85.192A] Post-Operative Diagnoses: * Malfunction of spinal cord stimulator, initial encounter [T85.192A] Surgeons and Role: * Andrew Guzman MD - Primary Anesthesiologist: Ari Hernandez MD BRANCH MECHANIC: Brown Young CRNA Powder Expert: Lisandro Starr RN Automatic Thread Winder: Lashae Lopez, TECHNOLOGIST Powder Expert Relief: Belkis Macias RN Scrub Person: Celia Castillo ST Anesthesia Specialist: Andra Elizabeth Social Group Worker: Nadia Christine; Laney Ram PSA Scrub Person Assist: Nadia Aquino RN Operative findings: Epidural scarring. Intra and immediate post-operative complications: none Type of anesthesia used: General Estimated blood loss: 300 mL Estimated urine output: Refer to surgical log Specimen(s): * No specimens in log * Implant(s): Implant Name Type Inv. Item Serial No. Manager Clinical Services Lot No. [id number] No. Used Action HEMOSTAT 2 X 4IN SURGICEL FIBRILLAR - [id number] HEMOSTAT 2 X 4IN SURGICEL FIBRILLAR ETHICON [id number] N/A 1 Implanted HEMOSTAT 8 X 12.5CM X 10MM SURGIFOAM GELATIN SPONGE - [id number] HEMOSTAT 8 X 12.5CM X 10MM SURGIFOAM GELATIN SPONGE ETHICON N/A 1 Implanted HEMOSTAT 4 X 8IN SURGICEL ORIGINAL ABSORBABLE - [id number] HEMOSTAT 4 X 8IN SURGICEL ORIGINAL ABSORBABLE Ho [employer] Ho [id number] N/A 1 Implanted LEAD 60CM PENTA - [id number] LEAD 60CM PENTA [id number] ST TAMARA SC N/A 1 Implanted SEALANT 5ML HEMOSTATIC MATRIX FAST PREP FLOSEAL W/ RECOTHROM - [id number] SEALANT 5ML HEMOSTATIC MATRIX FAST PREP FLOSEAL W/ RECOTHROM SHAHID BIO [id number] N/A 1 Implanted SEALANT 5ML HEMOSTATIC MATRIX FAST PREP FLOSEAL W/ RECOTHROM - [id number] SEALANT 5ML HEMOSTATIC MATRIX FAST PREP FLOSEAL W/ RECOTHROM SHAHID BIO [id number] N/A 1 Implanted GENERATOR NEUROSTIMULATOR IMPLANTABLE XR5 PROCLAIM - [id number] GENERATOR NEUROSTIMULATOR IMPLANTABLE XR5 PRO[id number] [address] TAMARA SC N/A 1 Implanted Drain(s): * No LDAs found * Wound(s): Wound 11/18/24 Surgical Wound Thoracic Spine (Active) Dressing Status Clean;Dry;Intact 11/18/24 1426 Drainage Amount None 11/18/24 1426 Wound Closure Sutures;Surgical Adhesive 10/22/24 0002 Andrew Guzman MD 11/18/2024 2:32 PM [facility] 11-18-2024 Nurse Surgical operation note Explanted generator and leads from previous procedure. Disposed of in trash. [facility] 11-18-2024 Nurse Note Explanted generator and leads from previous procedure. Disposed of in trash. documented in this encounter [facility] 11-18-2024 Procedure note TAMRA GUZMAN [facility] [id number] 1955 DATE 11/18/2024 OPERATIVE REPORT SURGEON ANDREW GUZMAN MD PREOPERATIVE DIAGNOSES Retained spinal cord stimulator, with malfunctioning spinal cord stimulator, and chronic axial lumbosacral pain and leg pain. POSTOPERATIVE DIAGNOSES Retained spinal cord stimulator, with malfunctioning spinal cord stimulator, and chronic axial lumbosacral pain and leg pain. PROCEDURES 1. Removal of retained spinal cord stimulator, bilateral electrodes via T10 laminectomy. 2. Removal of left flank implantable pulse generator via separate incision. 3. Insertion of new paddle spinal cord stimulator, dorsal column electrode via T9-T10 laminectomy. 4. Insertion of left flank implantable pulse generator. ANESTHESIA General. INDICATION Tamra Guzman is a 69-year-old male who had at an outside institution a spinal cord stimulator system placed. He had excellent relief of his pain with 100% pain relief by his recollection from his axial lumbosacral spinal pain and leg pain. However, the system has now malfunctioned. He has been interrogated by a practice representative from [employer] and noted to have multiple faults. Because of these faults, the patient also is precluded from undergoing MRI scanning. Because of the faults in the system and the poor functionality, the patient requests removal of the system as well as replacement with a new spinal cord stimulator system. In addition, he would like his left IPG to be relocated more cephalad so it does not interfere with his beltline. PROCEDURE IN DETAIL The procedure was performed in OR #2. The patient was intubated, and general anesthesia was established. An appropriate time-out was performed with Neurosurgery, Anesthesiology, and nursing teams, and all agreed with this patient's identity and planned procedure. After intubation and establishing general anesthesia, he was carefully rotated in the prone position on a Bhaskar spine frame, taking care to pad all pressure points. He received 2 g of Ancef at the onset of the procedure for antibiotic prophylaxis. Fluoroscopy was used to positively identify the positions of the leads after reference purposes. Next, the thoracolumbar sacral area and left flank area were cleansed with alcohol, prepped with ChloraPrep, and draped in the usual sterile fashion. 10 cc of a 1:1 mixture of 0.5% Marcaine plain with 1% lidocaine was used for local infiltration purposes of the skin and soft tissues at all 3 incision sites. First, an incision was made spanning the T9-T10 laminar areas in the midline. Points of bleeding were controlled with bipolar cautery. Monopolar cautery was used to dissect down through the thoracic dorsal fascia, exposing the lamina of T9 and T10. A self-retaining retractor was placed. Throughout the case, small amounts of Floseal, thrombin-soaked Gelfoam, Surgicel, and Fibrillar were used for hemostasis, all of which were removed from all operative sites prior to closure. The spinous process of T10 was resected. Next, a high-speed Midas Dat drill was then used to thin the lamina of the T10 level. Points of bony bleeding were controlled with a liberal application of bone wax. Next, a laminectomy was performed, removing hypertrophied ligamentum flavum and laminar bone from T10 to expose the epidural space. There was significant scarring in the epidural space, and the 2 midline electrodes were noted to be scarred into place. Very carefully using sharp dissection, the dorsal most aspect of the epidural scar was resected to free the electrodes. A Vectra was very easily slid from their epidural scar and pseudocapsule in an inferior caudal fashion. Next, the pre-existing incision at the L2 level was reopened to expose in the subcutaneous tissues after cutting the skin with a 10 blade, the anchor boots that had been left previously. [place] boots were freed from anchor sutures, and the leads were then once again removed, from the laminectomy site by gently pulling to this new incision site. A third incision was then made, reopening the pre-existing scar in the left flank. The pseudocapsule surrounding the IPG was opened, and the IPG was then explanted. The wires were cut at the IPG, and then these wires were then pulled through to the L2 incision. All aspects and components of this spinal cord stimulator system were removed and then discarded. Next, the pseudocapsule was closed with interrupted 0 Vicryl suture at the IPG site. Next, a new paddle electrode was placed. This because of the scar necessitated T9 laminectomy. T9 laminectomy was then performed using the high-speed Midas Dat drill of the inferior half of T9, followed by opening further with Kerrison rongeurs to achieve a plane superior to the area of epidural scarring from the electrodes. Next, an Driver Penta lead passed without difficulty from caudad to cephalad. Fluoroscopy was then used to determine the location of this electrode. This paddle electrode's most superior row leads was at the T7-8 disk space and then spanned the T8 vertebral body level to the T8-T9 disk space, in the midline. The leads were then anchored with anchor boots, which were secured with 2-0 silk ties, and then the 2-0 silk ties were then secured to surrounding fascia with further 2-0 silk ties. A tunneling straw was used to tunnel from this laminectomy site to the IPG site. A new Driver Proclaim IPG was brought into the field, and then leads were inserted into the headers. Initial interrogation by the Driver practice representative did demonstrate 3 high impedance contacts, but with time, this receded to a single high impedance contact, which also was present when tested with cables. This most likely reflected operative fluid and was felt to be a reasonable chance of complete dissipation to represent a normally functioning unit with the passage of a few days in the future. Therefore, no further revisions were felt necessary. All operative sites were irrigated with Irrisept, a total of 450 cc, followed by 300 cc of saline. Hemostasis was excellent, and at no time was there any evidence of cerebrospinal fluid leakage. The redundant wires were looped posterior to the IPG, and the IPG was then implanted in the IPG pocket and then secured in a more superior position at the patient's request after extending the pocket in a superior direction with sharp dissection. The IPG was anchored with 0 Vicryl. The thoracic fascia was closed with interrupted inverted 0 Vicryl suture. The deep dermal layer at all sites was closed with inverted interrupted 2-0 Vicryl suture, followed by closure of the skin at all 3 sites with 4-0 Monocryl subcuticular suture, followed by closure of skin at all sites with Dermabond and Prineo. Each incision was closed with an Aquacel antibacterial occlusive dressing. The patient tolerated the procedure well, was rotated in the supine position, extubated, and transferred to PACU in stable condition. ANDREW GUZMAN MD D 11/18/2024 14:23 [id number] T 11/18/2024 15:38 [facility] 11-18-2024 Attending History and physical note INTERVAL HISTORY AND PHYSICAL Patient Name: Tamra Guzman Admit Date: [id number] MR #: [id number] : 1955 The H&P has been reviewed and the patient has been examined. I concur with the findings of the H&P. There are no significant changes. It is appropriate to proceed with the planned procedure. Andrew Guzman MD 11/18/2024 11:46 AM Source Note - Andrew Guzman MD - 11/18/2024 11:43 AM EST Neurosurgical preoperative history and physical for procedure of 11/18/2024. Chief complaint. Malfunctioning spinal cord stimulator. History of present illness. Tamra Francis is a 69-year-old male who had a Driver percutaneous spinal cord stimulator lead system placed at an outside institution in [place] in 2021. Unfortunately the system is malfunctioning in terms of a lead derangement. The patient did get 100% relief at times from his prior system, and he now has severe axial lumbar pain with his lack of stimulation. CT of thoracic spine on 09/03/[address] of the lumbar spine of 10/05/2024, both performed at an outside institution, are available for review. The studies demonstrate bilateral percutaneous spinal cord stimulator leads terminating at the midportion of the T8 7 level, in the dorsal epidural space. There is severe disc degeneration seen at L1-L2 with severe disc space height loss. There is a dextroscoliosis of the lumbar spine, centered at L3. There is a 2 to 3 mm of anterolisthesis of L4 on L5. He continues with axial lumbar pain and right sciatica. Op note from his pain management physician in [place] indicated as well that the most superior aspect of the leads were at the mid T7 level. On current imaging set there is no evidence of compression fracture. His original spinal cord stimulator was implanted for the treatment of axial lumbar pain and proximal right sciatica. There is no 1 inciting event that led to this, but the patient states that he has had significant athletic injuries and overuse injuries that led to his pain. He also has the scoliosis which she has known about for many years but never had any specific treatment for this. He states that initially after his spinal cord stimulator percutaneous system was placed he had 100% relief, but this is now faded after approximately a year. This last 6 months he has very minimal ability to have any stimulation and in addition his IPG will no longer allow MRI mode to be chosen, indicative of malfunction. Past medical history significant for cochlear implant. Polymyalgia rheumatica. Chronic steroid exposure. Rheumatoid arthritis. Hypertension. Retained spinal cord stimulator. Bilateral knee arthroplasties. Review of Systems No history of coronary artery disease DVT blood clot. No history of exposure to antiplatelets or anticoagulants. The patient does not drink alcohol and does not smoke. He has never had any direct reconstructive spinal surgery. He is managed by international marketing intern in [facility]. He states his manifestations of polymyalgia rheumatica are pain everywhere. Medications and AR. Allergies to bee pollen. Psychosocial review. 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 He lives in the [facility] with his . Physical Exam Awake alert oriented pleasant male in no obvious distress. He is mildly hard of hearing. Cochlear implant system is in place. He has a well-healed midline incision extending from L2-L4 with no pseudomeningocele. There is mild tenderness to palpation of the site. He walks with a slightly antalgic gait favoring the right side. However for flexibility is excellent and he can bend forward and touch his toes without difficulty. He has a left belt line IPG in place with no erythema scabbing or significant fluctuance. No tenderness to palpation of the left IPG site. Straight leg raising is negative because sciatica currently. No tremor in upper lower extremities is seen. Lungs are clear to auscultation. Cardiac exam reveals regular rhythm without click, murmur heave or thrill. Abdomen supple nontender. Muscle bulk and tone is normal. Speech and language function is normal. Recent and remote memory is intact. Emotional contents appropriate for context of clinic visit. No rashes present over the face arms legs or feet. Pupils are 6 to 4 mm equal round react light. Face is symmetric. No due to venous distention. No pretibial pitting edema. Light touch is grossly intact in bilateral lower extremities. Power at the iliopsoas glute across of hamstrings and dorsi plantarflex the feet are 5 out of 5 and symmetric. Chart Collector strength is 5 out of 5 and symmetric. Romberg sign is negative. The patient is unable to tandem walk due to orthopedic issues related to knee implants. No tremor of the bilateral upper extremities. Impression Malfunctioning of spinal cord stimulator system including lead malfunctions as well as IPG malfunction in a patient with longstanding axial lumbar pain and proximal right sciatica secondary to a combination of spondylosis and scoliosis. Plan At this point time patient is desirous of resuming a fully functioning spinal cord stim her system. To that end I would recommend explanting his current left IPG as well as his malfunctioning percutaneous leads. I discussed with him and his that I may need to do multilevel laminectomies to retrieve the leads depending if they are scarred and, and this could result in T7-T8 T9-T10 laminectomies. This would then result in a paddle lead being placed with a laminoplasty fusion type of construct to keep the paddle lead in position. He also would like his left IPG to be more superior in its position by perhaps 2 to 3 cm to move this away from his belt line and I believe that should be feasible. He and his understand the risk of the procedure including the very remote risk of any general surgical anesthetic including stroke DVT pulm embolism myocardial infarction as well as spinal cord injury that could be temporary or permanent neurologic disability including paraplegia, CSF leak, epidural hematoma, nonunion, instrumentation failure, as well as electrical mechanical failure of this product which the motor system, and the fact that a spinal cord stimulator IPG may need to be replaced in the future. They understand that infection of any of the sites could lead to significant severe complications. The patient will need to be supplemented with steroids as he is on chronic prednisone for his polymyalgia rheumatica and rheumatoid arthritis. Patient and understand and wish to proceed with surgical intervention as outlined above. Andrew Guzman MD [facility] 11-18-2024 History and physical note INTERVAL HISTORY AND PHYSICAL Patient Name: Tamra Guzman Admit Date: [id number] MR #: [id number] : 1955 The H&P has been reviewed and the patient has been examined. I concur with the findings of the H&P. There are no significant changes. It is appropriate to proceed with the planned procedure. Andrew Guzman MD 11/18/2024 11:46 AM Source Note - Andrew Guzman MD - 11/18/2024 11:43 AM EST Neurosurgical preoperative history and physical for procedure of 11/18/2024. Chief complaint. Malfunctioning spinal cord stimulator. History of present illness. Tamra Francis is a 69-year-old male who had a Driver percutaneous spinal cord stimulator lead system placed at an outside institution in [place] in 2021. Unfortunately the system is malfunctioning in terms of a lead derangement. The patient did get 100% relief at times from his prior system, and he now has severe axial lumbar pain with his lack of stimulation. CT of thoracic spine on 09/03/[address] of the lumbar spine of 10/05/2024, both performed at an outside institution, are available for review. The studies demonstrate bilateral percutaneous spinal cord stimulator leads terminating at the midportion of the T8 7 level, in the dorsal epidural space. There is severe disc degeneration seen at L1-L2 with severe disc space height loss. There is a dextroscoliosis of the lumbar spine, centered at L3. There is a 2 to 3 mm of anterolisthesis of L4 on L5. He continues with axial lumbar pain and right sciatica. Op note from his pain management physician in [place] indicated as well that the most superior aspect of the leads were at the mid T7 level. On current imaging set there is no evidence of compression fracture. His original spinal cord stimulator was implanted for the treatment of axial lumbar pain and proximal right sciatica. There is no 1 inciting event that led to this, but the patient states that he has had significant athletic injuries and overuse injuries that led to his pain. He also has the scoliosis which she has known about for many years but never had any specific treatment for this. He states that initially after his spinal cord stimulator percutaneous system was placed he had 100% relief, but this is now faded after approximately a year. This last 6 months he has very minimal ability to have any stimulation and in addition his IPG will no longer allow MRI mode to be chosen, indicative of malfunction. Past medical history significant for cochlear implant. Polymyalgia rheumatica. Chronic steroid exposure. Rheumatoid arthritis. Hypertension. Retained spinal cord stimulator. Bilateral knee arthroplasties. Review of Systems No history of coronary artery disease DVT blood clot. No history of exposure to antiplatelets or anticoagulants. The patient does not drink alcohol and does not smoke. He has never had any direct reconstructive spinal surgery. He is managed by international marketing intern in [facility]. He states his manifestations of polymyalgia rheumatica are pain everywhere. Medications and AR. Allergies to bee pollen. Psychosocial review. 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 He lives in the [facility] with his . Physical Exam Awake alert oriented pleasant male in no obvious distress. He is mildly hard of hearing. Cochlear implant system is in place. He has a well-healed midline incision extending from L2-L4 with no pseudomeningocele. There is mild tenderness to palpation of the site. He walks with a slightly antalgic gait favoring the right side. However for flexibility is excellent and he can bend forward and touch his toes without difficulty. He has a left belt line IPG in place with no erythema scabbing or significant fluctuance. No tenderness to palpation of the left IPG site. Straight leg raising is negative because sciatica currently. No tremor in upper lower extremities is seen. Lungs are clear to auscultation. Cardiac exam reveals regular rhythm without click, murmur heave or thrill. Abdomen supple nontender. Muscle bulk and tone is normal. Speech and language function is normal. Recent and remote memory is intact. Emotional contents appropriate for context of clinic visit. No rashes present over the face arms legs or feet. Pupils are 6 to 4 mm equal round react light. Face is symmetric. No due to venous distention. No pretibial pitting edema. Light touch is grossly intact in bilateral lower extremities. Power at the iliopsoas glute across of hamstrings and dorsi plantarflex the feet are 5 out of 5 and symmetric. Chart Collector strength is 5 out of 5 and symmetric. Romberg sign is negative. The patient is unable to tandem walk due to orthopedic issues related to knee implants. No tremor of the bilateral upper extremities. Impression Malfunctioning of spinal cord stimulator system including lead malfunctions as well as IPG malfunction in a patient with longstanding axial lumbar pain and proximal right sciatica secondary to a combination of spondylosis and scoliosis. Plan At this point time patient is desirous of resuming a fully functioning spinal cord stim her system. To that end I would recommend explanting his current left IPG as well as his malfunctioning percutaneous leads. I discussed with him and his that I may need to do multilevel laminectomies to retrieve the leads depending if they are scarred and, and this could result in T7-T8 T9-T10 laminectomies. This would then result in a paddle lead being placed with a laminoplasty fusion type of construct to keep the paddle lead in position. He also would like his left IPG to be more superior in its position by perhaps 2 to 3 cm to move this away from his belt line and I believe that should be feasible. He and his understand the risk of the procedure including the very remote risk of any general surgical anesthetic including stroke DVT pulm embolism myocardial infarction as well as spinal cord injury that could be temporary or permanent neurologic disability including paraplegia, CSF leak, epidural hematoma, nonunion, instrumentation failure, as well as electrical mechanical failure of this product which the motor system, and the fact that a spinal cord stimulator IPG may need to be replaced in the future. They understand that infection of any of the sites could lead to significant severe complications. The patient will need to be supplemented with steroids as he is on chronic prednisone for his polymyalgia rheumatica and rheumatoid arthritis. Patient and understand and wish to proceed with surgical intervention as outlined above. Andrew Guzman MD Neurosurgical preoperative history and physical for procedure of 11/18/2024. Chief complaint. Malfunctioning spinal cord stimulator. History of present illness. Tamra Francis is a 69-year-old male who had a Driver percutaneous spinal cord stimulator lead system placed at an outside institution in [place] in 2021. Unfortunately the system is malfunctioning in terms of a lead derangement. The patient did get 100% relief at times from his prior system, and he now has severe axial lumbar pain with his lack of stimulation. CT of thoracic spine on 09/03/[address] of the lumbar spine of 10/05/2024, both performed at an outside institution, are available for review. The studies demonstrate bilateral percutaneous spinal cord stimulator leads terminating at the midportion of the T8 7 level, in the dorsal epidural space. There is severe disc degeneration seen at L1-L2 with severe disc space height loss. There is a dextroscoliosis of the lumbar spine, centered at L3. There is a 2 to 3 mm of anterolisthesis of L4 on L5. He continues with axial lumbar pain and right sciatica. Op note from his pain management physician in [place] indicated as well that the most superior aspect of the leads were at the mid T7 level. On current imaging set there is no evidence of compression fracture. His original spinal cord stimulator was implanted for the treatment of axial lumbar pain and proximal right sciatica. There is no 1 inciting event that led to this, but the patient states that he has had significant athletic injuries and overuse injuries that led to his pain. He also has the scoliosis which she has known about for many years but never had any specific treatment for this. He states that initially after his spinal cord stimulator percutaneous system was placed he had 100% relief, but this is now faded after approximately a year. This last 6 months he has very minimal ability to have any stimulation and in addition his IPG will no longer allow MRI mode to be chosen, indicative of malfunction. Past medical history significant for cochlear implant. Polymyalgia rheumatica. Chronic steroid exposure. Rheumatoid arthritis. Hypertension. Retained spinal cord stimulator. Bilateral knee arthroplasties. Review of Systems No history of coronary artery disease DVT blood clot. No history of exposure to antiplatelets or anticoagulants. The patient does not drink alcohol and does not smoke. He has never had any direct reconstructive spinal surgery. He is managed by international marketing intern in [facility]. He states his manifestations of polymyalgia rheumatica are pain everywhere. Medications and AR. Allergies to bee pollen. Psychosocial review. 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 He lives in the [facility] with his . Physical Exam Awake alert oriented pleasant male in no obvious distress. He is mildly hard of hearing. Cochlear implant system is in place. He has a well-healed midline incision extending from L2-L4 with no pseudomeningocele. There is mild tenderness to palpation of the site. He walks with a slightly antalgic gait favoring the right side. However for flexibility is excellent and he can bend forward and touch his toes without difficulty. He has a left belt line IPG in place with no erythema scabbing or significant fluctuance. No tenderness to palpation of the left IPG site. Straight leg raising is negative because sciatica currently. No tremor in upper lower extremities is seen. Lungs are clear to auscultation. Cardiac exam reveals regular rhythm without click, murmur heave or thrill. Abdomen supple nontender. Muscle bulk and tone is normal. Speech and language function is normal. Recent and remote memory is intact. Emotional contents appropriate for context of clinic visit. No rashes present over the face arms legs or feet. Pupils are 6 to 4 mm equal round react light. Face is symmetric. No due to venous distention. No pretibial pitting edema. Light touch is grossly intact in bilateral lower extremities. Power at the iliopsoas glute across of hamstrings and dorsi plantarflex the feet are 5 out of 5 and symmetric. Chart Collector strength is 5 out of 5 and symmetric. Romberg sign is negative. The patient is unable to tandem walk due to orthopedic issues related to knee implants. No tremor of the bilateral upper extremities. Impression Malfunctioning of spinal cord stimulator system including lead malfunctions as well as IPG malfunction in a patient with longstanding axial lumbar pain and proximal right sciatica secondary to a combination of spondylosis and scoliosis. Plan At this point time patient is desirous of resuming a fully functioning spinal cord stim her system. To that end I would recommend explanting his current left IPG as well as his malfunctioning percutaneous leads. I discussed with him and his that I may need to do multilevel laminectomies to retrieve the leads depending if they are scarred and, and this could result in T7-T8 T9-T10 laminectomies. This would then result in a paddle lead being placed with a laminoplasty fusion type of construct to keep the paddle lead in position. He also would like his left IPG to be more superior in its position by perhaps 2 to 3 cm to move this away from his belt line and I believe that should be feasible. He and his understand the risk of the procedure including the very remote risk of any general surgical anesthetic including stroke DVT pulm embolism myocardial infarction as well as spinal cord injury that could be temporary or permanent neurologic disability including paraplegia, CSF leak, epidural hematoma, nonunion, instrumentation failure, as well as electrical mechanical failure of this product which the motor system, and the fact that a spinal cord stimulator IPG may need to be replaced in the future. They understand that infection of any of the sites could lead to significant severe complications. The patient will need to be supplemented with steroids as he is on chronic prednisone for his polymyalgia rheumatica and rheumatoid arthritis. Patient and understand and wish to proceed with surgical intervention as outlined above. Andrew Guzman MD documented in this encounter [facility] 11-18-2024 History and physical note Neurosurgical preoperative history and physical for procedure of 11/18/2024. Chief complaint. Malfunctioning spinal cord stimulator. History of present illness. Tamra Francis is a 69-year-old male who had a Driver percutaneous spinal cord stimulator lead system placed at an outside institution in [place] in 2021. Unfortunately the system is malfunctioning in terms of a lead derangement. The patient did get 100% relief at times from his prior system, and he now has severe axial lumbar pain with his lack of stimulation. CT of thoracic spine on 09/03/[address] of the lumbar spine of 10/05/2024, both performed at an outside institution, are available for review. The studies demonstrate bilateral percutaneous spinal cord stimulator leads terminating at the midportion of the T8 7 level, in the dorsal epidural space. There is severe disc degeneration seen at L1-L2 with severe disc space height loss. There is a dextroscoliosis of the lumbar spine, centered at L3. There is a 2 to 3 mm of anterolisthesis of L4 on L5. He continues with axial lumbar pain and right sciatica. Op note from his pain management physician in [place] indicated as well that the most superior aspect of the leads were at the mid T7 level. On current imaging set there is no evidence of compression fracture. His original spinal cord stimulator was implanted for the treatment of axial lumbar pain and proximal right sciatica. There is no 1 inciting event that led to this, but the patient states that he has had significant athletic injuries and overuse injuries that led to his pain. He also has the scoliosis which she has known about for many years but never had any specific treatment for this. He states that initially after his spinal cord stimulator percutaneous system was placed he had 100% relief, but this is now faded after approximately a year. This last 6 months he has very minimal ability to have any stimulation and in addition his IPG will no longer allow MRI mode to be chosen, indicative of malfunction. Past medical history significant for cochlear implant. Polymyalgia rheumatica. Chronic steroid exposure. Rheumatoid arthritis. Hypertension. Retained spinal cord stimulator. Bilateral knee arthroplasties. Review of Systems No history of coronary artery disease DVT blood clot. No history of exposure to antiplatelets or anticoagulants. The patient does not drink alcohol and does not smoke. He has never had any direct reconstructive spinal surgery. He is managed by international marketing intern in [facility]. He states his manifestations of polymyalgia rheumatica are pain everywhere. Medications and AR. Allergies to bee pollen. Psychosocial review. 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 He lives in the [facility] with his . Physical Exam Awake alert oriented pleasant male in no obvious distress. He is mildly hard of hearing. Cochlear implant system is in place. He has a well-healed midline incision extending from L2-L4 with no pseudomeningocele. There is mild tenderness to palpation of the site. He walks with a slightly antalgic gait favoring the right side. However for flexibility is excellent and he can bend forward and touch his toes without difficulty. He has a left belt line IPG in place with no erythema scabbing or significant fluctuance. No tenderness to palpation of the left IPG site. Straight leg raising is negative because sciatica currently. No tremor in upper lower extremities is seen. Lungs are clear to auscultation. Cardiac exam reveals regular rhythm without click, murmur heave or thrill. Abdomen supple nontender. Muscle bulk and tone is normal. Speech and language function is normal. Recent and remote memory is intact. Emotional contents appropriate for context of clinic visit. No rashes present over the face arms legs or feet. Pupils are 6 to 4 mm equal round react light. Face is symmetric. No due to venous distention. No pretibial pitting edema. Light touch is grossly intact in bilateral lower extremities. Power at the iliopsoas glute across of hamstrings and dorsi plantarflex the feet are 5 out of 5 and symmetric. Chart Collector strength is 5 out of 5 and symmetric. Romberg sign is negative. The patient is unable to tandem walk due to orthopedic issues related to knee implants. No tremor of the bilateral upper extremities. Impression Malfunctioning of spinal cord stimulator system including lead malfunctions as well as IPG malfunction in a patient with longstanding axial lumbar pain and proximal right sciatica secondary to a combination of spondylosis and scoliosis. Plan At this point time patient is desirous of resuming a fully functioning spinal cord stim her system. To that end I would recommend explanting his current left IPG as well as his malfunctioning percutaneous leads. I discussed with him and his that I may need to do multilevel laminectomies to retrieve the leads depending if they are scarred and, and this could result in T7-T8 T9-T10 laminectomies. This would then result in a paddle lead being placed with a laminoplasty fusion type of construct to keep the paddle lead in position. He also would like his left IPG to be more superior in its position by perhaps 2 to 3 cm to move this away from his belt line and I believe that should be feasible. He and his understand the risk of the procedure including the very remote risk of any general surgical anesthetic including stroke DVT pulm embolism myocardial infarction as well as spinal cord injury that could be temporary or permanent neurologic disability including paraplegia, CSF leak, epidural hematoma, nonunion, instrumentation failure, as well as electrical mechanical failure of this product which the motor system, and the fact that a spinal cord stimulator IPG may need to be replaced in the future. They understand that infection of any of the sites could lead to significant severe complications. The patient will need to be supplemented with steroids as he is on chronic prednisone for his polymyalgia rheumatica and rheumatoid arthritis. Patient and understand and wish to proceed with surgical intervention as outlined above. Andrwe Guzman MD [facility] 11-18-2024 Note Neurosurgical preope rative history and physical for procedure of 11/18/2024. Chief complaint. Malfunctioning spinal cord stimulator. History of present illness. Tamra Francis is a 69-year-old male who had a Driver percutaneous spinal cord stimulator lead system placed at an outside institution in [place] in 2021. Unfortunately the system is malfunctioning in terms of a lead derangement. The patient did get 100% relief at times from his prior system, and he now has severe axial lumbar pain with his lack of stimulation. CT of thoracic spine on 09/03/[address] of the lumbar spine of 10/05/2024, both performed at an outside institution, are available for review. The studies demonstrate bilateral percutaneous spinal cord stimulator leads terminating at the midportion of the T8 7 level, in the dorsal epidural space. There is severe disc degeneration seen at L1-L2 with severe disc space height loss. There is a dextroscoliosis of the lumbar spine, centered at L3. There is a 2 to 3 mm of anterolisthesis of L4 on L5. He continues with axial lumbar pain and right sciatica. Op note from his pain management physician in [place] indicated as well that the most superior aspect of the leads were at the mid T7 level. On current imaging set there is no evidence of compression fracture. His original spinal cord stimulator was implanted for the treatment of axial lumbar pain and proximal right sciatica. There is no 1 inciting event that led to this, but the patient states that he has had significant athletic injuries and overuse injuries that led to his pain. He also has the scoliosis which she has known about for many years but never had any specific treatment for this. He states that initially after his spinal cord stimulator percutaneous system was placed he had 100% relief, but this is now faded after approximately a year. This last6 months he has very minimal ability to have any stimulation and in addition his IPG will no longer allow MRI mode to be chosen, indicative of malfunction. Past medical history significant for cochlear implant. Polymyalgia rheumatica. Chronic steroid exposure. Rheumatoid arthritis. Hypertension. Retained spinal cord stimulator. Bilateral knee arthroplasties. Review of Systems No history of coronary artery disease DVT blood clot. No history of exposure to antiplatelets or anticoagulants. The patient does not drink alcohol and does not smoke. He has never had any direct reconstructive spinal surgery. He is managed by international marketing intern in [facility]. He states his manifestations of polymyalgia rheumatica are pain everywhere. Medications and AR. Allergies to bee pollen. Psychosocial review. 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 He lives in the [facility] with his . Physical Exam Awake alert oriented pleasant male in no obvious distress. He is mildly hard of hearing. Cochlear implant system is in place. He has a well-healed midline incision extending from L2-L4 with no pseudomeningocele. There is mild tenderness to palpation of the site. He walks with a slightly antalgic gait favoring the right side. However for flexibility is excellent and he can bend forward and touch his toes without difficulty. He has a left belt line IPG in place with no erythema scabbing or significant fluctuance. No tenderness to palpation of the left IPG site. Straight leg raising is negative because sciatica currently. No tremor in upper lower extremities is seen. Lungs are clear to auscultation. Cardiac exam reveals regular rhythm without click, murmur heave or thrill. Abdomen supple nontender. Muscle bulk and tone is normal. Speech and language function is normal. Recent and remote memory is intact. Emotional contents appropriate for context of clinic visit. No rashes present over the face arms legs or feet. Pupils are 6 to 4 mm equal round react light. Face is symmetric. No due to venous distention. No pretibial pitting edema. Light touch is grossly intact in bilateral lower extremities. Power at the iliopsoas glute across of hamstrings and dorsi plantarflex the feet are 5 out of 5 and symmetric. Chart Collector strength is 5 out of 5 and symmetric. Romberg sign is negative. The patient is unable to tandem walk due to orthopedic issues related to knee implants. No tremor of the bilateral upper extremities. Impression Malfunctioning of spinal cord stimulator system including lead malfunctions as well as IPG malfunction in a patient with longstanding axial lumbar pain and proximal right sciatica secondary to a combination of spondylosis and scoliosis. Plan At this point time patient is desirous of resuming a fully functioning spinal cord stim her system. To that end I would recommend explanting his current left IPG as well as his malfunctioning percutaneous leads. I discussed with him and his that I may need to do multilevel laminectomies to retrieve the leads (more content not included)... [facility] 10-28-2024 History of Presen t illness Narrative Images from the original note were not included. Neurosurgery Pre-Op Education Patient Specific Procedure: Thoracic 10-11 Laminectomy, possible Thoracic 7-9 laminectomy, Removal Retained SCS Electrode, possible Thoracic 7-8 Laminoplasty/Fusioin, Removal Left Flank IPG, Insertion of Left Flank IPG Procedure Information Sheet and Spine Book: Reviewed procedure in detail, risks and benefits, immediate post-operative expectations, in hospital and home wound care, post-op activity restrictions and recommendations, and pain medications. The patient was advised that he/she may not receive post-op pain medications more than 30 days after their surgery. Medication Review: Medication list reviewed with patient. He/she was provided start or stop dates regarding the following medications: NO medications to stop Consent: The patient reports that they understand the risks and benefits of the procedure as previously reviewed by their physician and consents to the described procedure. The patient verbalized understanding of the above information and had no further questions. The patient was provided my direct contact information as well as the office phone number and returned item clerk's number. documented in this encounter [facility] 10-28-2024 Note Pre-Operative H&P Assessment and Plan Malfunction of spinal cord stimulator Scheduled for Thoracic 10-11, possible Thoracic 7-9 Laminectomy, Removal Retained SCS Electrodes, Insertion of Paddle Lead Electrode, possible Thoracic 7-8 Laminoplasty/fusion, Removal of Left Flank IPG, insertion of new Left Flank IPG on 11/11/[address] Guzman DEMOND (obstructive sleep apnea) Uses cpap Hypertension Blood pressure well controlled on current medical therapy Hyperlipidemia On statin therapy GERD (gastroesophageal reflux disease) Continue pepcid perioperatively for aspiration precautions Preop examination Patient is scheduled for a medium risk surgery under general anesthesia. He has no history of ischemic heart disease, pulmonary disease, diabetes, renal disease, or vascular disease. He denies any cardiac symptoms and is able to achieve a mets of 4 without difficulty. Per ACC/AHA guidelines he is acceptable cardiac risk. He reports a history of difficulty waking from anesthesia. Chronic conditions are stable and managed appropriately. Pending his preop testing which includes labs, MRSA, and chest x-ray he is medically stable to proceed with planned surgery. Chief Complaint Patient presents with Pre-operative Medical Risk Stratification History of Present Illness Tamra Guzman is a 69-year-old male who is scheduled for replacement of a spinal stimulator on 11/11/2024. His chronic conditions include GERD, hyperlipidemia, hypertension, and DEMOND. He denies any new or worsening cardiopulmonary complaints today. He is medically stable to proceed with planned surgery. Please see below regarding status of active medical conditions and assessment and plan regarding details of preoperative medical risk stratification. Past Medical History: Diagnosis Date GERD (gastroesophageal reflux disease) Hyperlipidemia Hypertension Lumbar spondylosis Rheumatic fever as a child Sleep apnea, obstructive uses cpap No past medical history pertinent negatives. Past Surgical History: Procedure Laterality Date COCHLEAR IMPLANT HERNIA REPAIR IR NEUROSTIMULATOR IMPLANT 12/14/2021 ROTATOR CUFF REPAIR Right TOTAL KNEE ARTHROPLASTY Bilateral VASECTOMY Social History Tobacco Use Smoking status: Never Smokeless tobacco: Never Substance Use Topics Alcohol use: Never Family History Problem Relation Age of Onset Pancreatic cancer Mother No Known Problems Father Drug abuse Brother Kidney cancer Brother Prior to Admission medications taking for visit date 10/28/24 Medication Sig Taking? Discontinued? amLODIPine (NORVASC) 5 MG tablet Take 1 (one) tablet (5 mg total) by mouth every morning . Yes donepeziL (ARICEPT) 10 MG tablet 1 (one) tablet (10 mg total) every morning . Yes famotidine (PEPCID) 40 MG tablet Take 1 (one) tablet (40 mg total) by mouth daily in the evening . Yes hydroxychloroquine (PLAQUENIL) 200 mg tablet Take 1 (one) tablet (200 mg total) by mouth 2 (two) times a day . Yes memantine (NAMENDA) 10 MG tablet Take 1 (one) tablet (10 mg total) by mouth 2 (two) times a day . Yes predniSONE 2 mg TbEC Take 1 (one) tablet (2 mg total) by mouth every morning . Yes rosuvastatin (CRESTOR) 20 MG tablet Take 1 (one) tablet (20 mg total) by mouth nightly . Yes cephALEXin (KEFLEX) 500 MG capsule Take 1 (one) capsule (500 mg total) by mouth 2 (two) times a day . Patient not taking: Reported on 10/28/2024 . cyanocobalamin (B-12) 1000 MCG tablet 0.5 (one-half) tablet (500 mcg total) every other day . Patient not taking: Reported on 10/28/2024 . meclizine (ANTIVERT) 25 mg tablet 1 (one) tablet (25 mg total) . Patient not taking: Reported on 10/28/2024 . Allergies Allergen Reactions Bee Pollen Unknown Review of Systems Constitution: (negative) Respiratory: (negative) Cardiovascular: (negative) Gastrointestinal: (negative) Musculoskeletal: - Back pain Physical Exam BP (!) 141/91 (BP Location: Left arm, Patient Position: Sitting) Pulse 71 Ht 6' Wt 90.3 kg (199 lb) SpO2 98% BMI 26.99 kg/m Constitutional: He is oriented to person, place, and time. He appears well developed and well-nourished. Skin: Skin is warm, dry and intact. Neck: Normal range of motion. Cardiovascular: Normal rate and regular rhythm. Pulmonary/Chest: Effort normal and breath sounds normal. Musculoskeletal: Normal range of motion. He exhibits no edema or tenderness. Neurological: He is alert and oriented to person, place, and time. Psychiatric: He has a normal mood and affect. His behavior is normal. Cognition and memory are normal. Data Preprocedure Sleep Apnea Assessment - High Risk (12/13) Sleep Apnea in the patient's Active Problem List or Medical History: yes 1. History of apparent airway obstruction during sleep: (1 point for this category) No data recorded 2. Somnolence of the patient: (1 point for this category) No data recorded 3. Predisposin (more content not included)... [facility] 10-08-2024 History of Presen t illness Narrative No chief complaint on file. Nonfunctioning spinal cord stimulator. RAGHAV Francis is a 69-year-old male who had a Driver percutaneous spinal cord stimulator lead system placed at an outside institution in [place] in 2021. Unfortunately the system is malfunctioning in terms of a lead derangement. The patient did get 100% relief at times from his prior system, and he now has severe axial lumbar pain with his lack of stimulation. CT of thoracic spine on 09/03/[address] of the lumbar spine of 10/05/2024, both performed at an outside institution, are available for review. The studies demonstrate bilateral percutaneous spinal cord stimulator leads terminating at the midportion of the T8 7 level, in the dorsal epidural space. There is severe disc degeneration seen at L1-L2 with severe disc space height loss. There is a dextroscoliosis of the lumbar spine, centered at L3. There is a 2 to 3 mm of anterolisthesis of L4 on L5. He continues with axial lumbar pain and right sciatica. Op note from his pain management physician in [place] indicated as well that the most superior aspect of the leads were at the mid T7 level. On current imaging set there is no evidence of compression fracture. His original spinal cord stimulator was implanted for the treatment of axial lumbar pain and proximal right sciatica. There is no 1 inciting event that led to this, but the patient states that he has had significant athletic injuries and overuse injuries that led to his pain. He also has the scoliosis which she has known about for many years but never had any specific treatment for this. He states that initially after his spinal cord stimulator percutaneous system was placed he had 100% relief, but this is now faded after approximately a year. This last 6 months he has very minimal ability to have any stimulation and in addition his IPG will no longer allow MRI mode to be chosen, indicative of malfunction. Past medical history significant for cochlear implant. Polymyalgia rheumatica. Chronic steroid exposure. Rheumatoid arthritis. Hypertension. Retained spinal cord stimulator. Bilateral knee arthroplasties. Review of Systems No history of coronary artery disease DVT blood clot. No history of exposure to antiplatelets or anticoagulants. The patient does not drink alcohol and does not smoke. He has never had any direct reconstructive spinal surgery. He is managed by international marketing intern in [facility]. He states his manifestations of polymyalgia rheumatica are pain everywhere. Medications and AR. Allergies to bee pollen. Psychosocial review. 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 He lives in the [facility] with his . Physical Exam Awake alert oriented pleasant male in no obvious distress. He is mildly hard of hearing. Cochlear implant system is in place. He has a well-healed midline incision extending from L2-L4 with no pseudomeningocele. There is mild tenderness to palpation of the site. He walks with a slightly antalgic gait favoring the right side. However for flexibility is excellent and he can bend forward and touch his toes without difficulty. He has a left belt line IPG in place with no erythema scabbing or significant fluctuance. Straight leg raising is negative because sciatica currently. No tremor in upper lower extremities is seen. Lungs are clear to auscultation. Cardiac exam reveals regular rhythm without click, murmur heave or thrill. Abdomen supple nontender. Muscle bulk and tone is normal. Speech and language function is normal. Recent and remote memory is intact. Emotional contents appropriate for context of clinic visit. No rashes present over the face arms legs or feet. Pupils are 6 to 4 mm equal round react light. Face is symmetric. No due to venous distention. No pretibial pitting edema. Light touch is grossly intact in bilateral lower extremities. Power at the iliopsoas glute across of hamstrings and dorsi plantarflex the feet are 5 out of 5 and symmetric. Chart Collector strength is 5 out of 5 and symmetric. Romberg sign is negative. The patient is unable to tandem walk due to orthopedic issues related to knee implants. Impression Malfunctioning of spinal cord stimulator system including lead malfunctions as well as IPG malfunction in a patient with longstanding axial lumbar pain and proximal right sciatica secondary to a combination of spondylosis and scoliosis. Plan At this point time patient is desirous of resuming a fully functioning spinal cord stim her system. To that end I would recommend explanting his current left IPG as well as his malfunctioning percutaneous leads. I discussed with him and his that I may need to do multilevel laminectomies to retrieve the leads depending if they are scarred and, and this could result in T7-T8 T9-T10 laminectomies. This would then result in a paddle lead being placed with a laminoplasty fusion type of construct to keep the paddle lead in position. He also would like his left IPG to be more superior in its position by perhaps 2 to 3 cm to move this away from his belt line and I believe that should be feasible. He and his understand the risk of the procedure including the very remote risk of any general surgical anesthetic including stroke DVT pulm embolism myocardial infarction as well as spinal cord injury that could be temporary or permanent neurologic disability including paraplegia, CSF leak, epidural hematoma, nonunion, instrumentation failure, as well as electrical mechanical failure of this product which the motor system, and the fact that a spinal cord stimulator IPG may need to be replaced in the future. They understand that infection of any of the sites could lead to significant severe complications. The patient will need to be supplemented with steroids as he is on chronic prednisone for his polymyalgia rheumatica and rheumatoid arthritis. Patient and understand and wish to proceed with surgical intervention as outlined above. Andrew Guzman MD documented in this encounter [facility] 10-08-2024 Note No chief complaint o n file. Nonfunctioning spinal cord stimulator. HPI Tamra Francis is a 69-year-old male who had a Driver percutaneous spinal cord stimulator lead system placed at an outside institution in [place] in 2021. Unfortunately the system is malfunctioning in terms of a lead derangement. The patient did get 100% relief at times from his prior system, and he now has severe axial lumbar pain with his lack of stimulation. CT of thoracic spine on 09/03/[address] of the lumbar spine of 10/05/2024, both performed at an outside institution, are available for review. The studies demonstrate bilateral percutaneous spinal cord stimulator leads terminating at the midportion of the T8 7 level, in the dorsal epidural space. There is severe disc degeneration seen at L1-L2 with severe disc space height loss. There is a dextroscoliosis of the lumbar spine, centered at L3. There is a 2 to 3 mm of anterolisthesis of L4 on L5. He continues with axial lumbar pain and right sciatica. Op note from his pain management physician in [place] indicated as well that the most superior aspect of the leads were at the mid T7 level. On current imaging set there is no evidence of compression fracture. His original spinal cord stimulator was implanted for the treatment of axial lumbar pain and proximal right sciatica. There is no 1 inciting event that led to this, but the patient states that he has had significant athletic injuries and overuse injuries that led to his pain. He also has the scoliosis which she has known about for many years but never had any specific treatment for this. He states that initially after his spinal cord stimulator percutaneous system was placed he had 100% relief, but this is now faded after approximately a year. This last6 months he has very minimal ability to have any stimulation and in addition his IPG will no longer allow MRI mode to be chosen, indicative of malfunction. Past medical history significant for cochlear implant. Polymyalgia rheumatica. Chronic steroid exposure. Rheumatoid arthritis. Hypertension. Retained spinal cord stimulator. Bilateral knee arthroplasties. Review of Systems No history of coronary artery disease DVT blood clot. No history of exposure to antiplatelets or anticoagulants. The patient does not drink alcohol and does not smoke. He has never had any direct reconstructive spinal surgery. He is managed by international marketing intern in [facility]. He states his manifestations of polymyalgia rheumatica are pain everywhere. Medications and AR. Allergies to bee pollen. Psychosocial review. 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 He lives in the [facility] with his . Physical Exam Awake alert oriented pleasant male in no obvious distress. He is mildly hard of hearing. Cochlear implant system is in place. He has a well-healed midline incision extending from L2-L4 with no pseudomeningocele. There is mild tenderness to palpation of the site. He walks with a slightly antalgic gait favoring the right side. However for flexibility is excellent and he can bend forward and touch his toes without difficulty. He has a left belt line IPG in place with no erythema scabbing or significant fluctuance. Straight leg raising is negative because sciatica currently. No tremor in upper lower extremities is seen. Lungs are clear to auscultation. Cardiac exam reveals regular rhythm without click, murmur heave or thrill. Abdomen supple nontender. Muscle bulk and tone is normal. Speech and language function is normal. Recent and remote memory is intact. Emotional contents appropriate for context of clinic visit. No rashes present over the face arms legs or feet. Pupils are 6 to 4 mm equal round react light. Face is symmetric. No due to venous distention. No pretibial pitting edema. Light touch is grossly intact in bilateral lower extremities. Power at the iliopsoas glute across of hamstrings and dorsi plantarflex the feet are 5 out of 5 and symmetric. Chart Collector strength is 5 out of 5 and symmetric. Romberg sign is negative. The patient is unable to tandem walk due to orthopedic issues related to knee implants. Impression Malfunctioning of spinal cord stimulator system including lead malfunctions as well as IPG malfunction in a patient with longstanding axial lumbar pain and proximal right sciatica secondary to a combination of spondylosis and scoliosis. Plan At this point time patient is desirous of resuming a fully functioning spinal cord stim her system. To that end I would recommend explanting his current left IPG as well as his malfunctioning percutaneous leads. I discussed with him and his that I may need to do multilevel laminectomies to retrieve the leads depending if they are scarred and, and this could result in T7-T8 T9-T10 laminectomies. This would then result in a paddle lead being placed with a laminoplasty fusion type of co (more content not included)... [facility] 09-30-2024 Note Addended by: AHMET FRANCES on: 09/30/2024 10:21 AM Modules accepted: Orders [facility] 09-30-2024 Note Addended by: AHMET FRANCES on: 09/30/2024 10:21 AM Modules accepted: Orders [facility] 09-30-2024 Miscellaneous Notes Addended by: AHMET FRANCES on: 09/30/2024 10:21 AM Modules accepted: Orders documented in this encounter [facility] 09-30-2024 Note Patient Information: Tamra Guzman is a 69 y.o. male 1955 HPI Patient is a 69-year-old male presenting for evaluation of his spinal cord stimulator. Patient reports that he does have a history of an Driver spinal cord stimulator being placed in 2021 by his pain management physician in [place]. He reports at that time he did have notable low back pain and right leg pain. He reports that the stimulator did significantly relieve his symptoms and he had near 100% relief. However, he reports over the last several months worsening of his low back pain and right leg pain. He reports that an MRI was requested and it was then found that his stimulator was unable to be put in MRI mode. He reports that after interrogation of his stimulator by the spinal cord similar practice representative, it was found that there was disturbances in the leads but reportedly no issues with the generator. He is not reporting recurrence of his low back pain and primarily right lower extremity pain. He denies any numbness/tingling or weakness in his lower extremities. He denies any bowel/bladder incontinence or saddle anesthesia. Per the previous op note, the tips of his leads were placed at the middle aspect of the T7 vertebral body on the left and middle aspect of the T7 vertebral body on the right. The patient reports having a recent CT of his spine. Detailed Review: He has no past medical history on file. He has no past surgical history on file. His family history is not on file. He reports that he has never smoked. He does not have any smokeless tobacco history on file. He reports that he does not drink alcohol and does not use drugs. Current medicine and allergy list has been reviewed with the patient. ROS: 12 System Review was performed by the patient in the office setting today, and reviewed with the patient. This ROS will be digitally scanned into the chart following the appointment today. Physical and Neurological Examination: AAOx3, sensory exam intact, motor 5/5 in lower extremities, no clonus, gait normal Studies Reviewed I have reviewed the patient's imaging studies to date, in detail with patient in the office. I unfortunately do not have access to the films but did review the report from the CT which did show slightly staggered leads to T7. Medical Decision-Making and Summary: This is a 69-year-old male who had an Driver spinal cord stimulator placed in 2021 by his pain management physician in [place] for low back pain and right lower extremity pain. Unfortunately over the last several months he has had recurrence of his pain and feels the stimulator is no longer working for him. He was scheduled for an MRI but his stimulator was unable to be put in MRI mode. Upon further interrogation of his stimulator by his spinal cord stimulator practice representative, it was determined that there were issues with the leads. He reportedly did have recent CTs of his spine and x-rays. I did review a CT report which does state staggering over the leads at T7. Per the op note from 2021, these leads were placed at the middle aspect of the T7 vertebral body. At this point, he is interested in revision surgery and would like an updated generator as well. I do recommend that he meet with her surgeon to discuss these options. We will have his CTs and report from the spinal cord stimulator practice representative pushed over to our office for review and we will schedule him with our surgeon. I did instruct him to call with any questions orconcerns in the meantime. After review, it does appear that the patient did have a CT of the lumbar spine. Given anticipated spinal cord stimulator revision, I also recommended obtaining dedicated thoracic imaging in the form of a CT thoracic spine without contrast. Patient is agreeable to this and we will coordinate this for him. I have reviewed the clinical findings with the patient in the office today, and the radiographic correlate was demonstrated to the patient in the exam room as well. I discussed the natural history, as well as conservative and surgical treatment options. I utilized spinal models and diagrams to act as visual aids during counseling today. I have answered the patient's questions today, following my consultation. The patient was advised to call with any questions. AUTHENTICATED BY AHMET FRANCES, ON 09/30/2024 10:21:03 [facility] 09-30-2024 History of Presen t illness Narrative Patient Information: Tamra Guzman is a 69 y.o. male 1955 HPI Patient is a 69-year-old male presenting for evaluation of his spinal cord stimulator. Patient reports that he does have a history of an Driver spinal cord stimulator being placed in 2021 by his pain management physician in [place]. He reports at that time he did have notable low back pain and right leg pain. He reports that the stimulator did significantly relieve his symptoms and he had near 100% relief. However, he reports over the last several months worsening of his low back pain and right leg pain. He reports that an MRI was requested and it was then found that his stimulator was unable to be put in MRI mode. He reports that after interrogation of his stimulator by the spinal cord similar practice representative, it was found that there was disturbances in the leads but reportedly no issues with the generator. He is not reporting recurrence of his low back pain and primarily right lower extremity pain. He denies any numbness/tingling or weakness in his lower extremities. He denies any bowel/bladder incontinence or saddle anesthesia. Per the previous op note, the tips of his leads were placed at the middle aspect of the T7 vertebral body on the left and middle aspect of the T7 vertebral body on the right. The patient reports having a recent CT of his spine. Detailed Review: He has no past medical history on file. He has no past surgical history on file. His family history is not on file. He reports that he has never smoked. He does not have any smokeless tobacco history on file. He reports that he does not drink alcohol and does not use drugs. Current medicine and allergy list has been reviewed with the patient. ROS: 12 System Review was performed by the patient in the office setting today, and reviewed with the patient. This ROS will be digitally scanned into the chart following the appointment today. Physical and Neurological Examination: AAOx3, sensory exam intact, motor 5/5 in lower extremities, no clonus, gait normal Studies Reviewed I have reviewed the patient's imaging studies to date, in detail with patient in the office. I unfortunately do not have access to the films but did review the report from the CT which did show slightly staggered leads to T7. Medical Decision-Making and Summary: This is a 69-year-old male who had an Driver spinal cord stimulator placed in 2021 by his pain management physician in [place] for low back pain and right lower extremity pain. Unfortunately over the last several months he has had recurrence of his pain and feels the stimulator is no longer working for him. He was scheduled for an MRI but his stimulator was unable to be put in MRI mode. Upon further interrogation of his stimulator by his spinal cord stimulator practice representative, it was determined that there were issues with the leads. He reportedly did have recent CTs of his spine and x-rays. I did review a CT report which does state staggering over the leads at T7. Per the op note from 2021, these leads were placed at the middle aspect of the T7 vertebral body. At this point, he is interested in revision surgery and would like an updated generator as well. I do recommend that he meet with her surgeon to discuss these options. We will have his CTs and report from the spinal cord stimulator practice representative pushed over to our office for review and we will schedule him with our surgeon. I did instruct him to call with any questions or concerns in the meantime. I have reviewed the clinical findings with the patient in the office today, and the radiographic correlate was demonstrated to the patient in the exam room as well. I discussed the natural history, as well as conservative and surgical treatment options. I utilized spinal models and diagrams to act as visual aids during counseling today. I have answered the patient's questions today, following my consultation. The patient was advised to call with any questions. documented in this encounter [facility] 09-30-2024 History of Presen t illness Narrative Patient Information: Tamra Guzman is a 69 y.o. male 1955 HPI Patient is a 69-year-old male presenting for evaluation of his spinal cord stimulator. Patient reports that he does have a history of an Driver spinal cord stimulator being placed in 2021 by his pain management physician in [place]. He reports at that time he did have notable low back pain and right leg pain. He reports that the stimulator did significantly relieve his symptoms and he had near 100% relief. However, he reports over the last several months worsening of his low back pain and right leg pain. He reports that an MRI was requested and it was then found that his stimulator was unable to be put in MRI mode. He reports that after interrogation of his stimulator by the spinal cord similar practice representative, it was found that there was disturbances in the leads but reportedly no issues with the generator. He is not reporting recurrence of his low back pain and primarily right lower extremity pain. He denies any numbness/tingling or weakness in his lower extremities. He denies any bowel/bladder incontinence or saddle anesthesia. Per the previous op note, the tips of his leads were placed at the middle aspect of the T7 vertebral body on the left and middle aspect of the T7 vertebral body on the right. The patient reports having a recent CT of his spine. Detailed Review: He has no past medical history on file. He has no past surgical history on file. His family history is not on file. He reports that he has never smoked. He does not have any smokeless tobacco history on file. He reports that he does not drink alcohol and does not use drugs. Current medicine and allergy list has been reviewed with the patient. ROS: 12 System Review was performed by the patient in the office setting today, and reviewed with the patient. This ROS will be digitally scanned into the chart following the appointment today. Physical and Neurological Examination: AAOx3, sensory exam intact, motor 5/5 in lower extremities, no clonus, gait normal Studies Reviewed I have reviewed the patient's imaging studies to date, in detail with patient in the office. I unfortunately do not have access to the films but did review the report from the CT which did show slightly staggered leads to T7. Medical Decision-Making and Summary: This is a 69-year-old male who had an Driver spinal cord stimulator placed in 2021 by his pain management physician in [place] for low back pain and right lower extremity pain. Unfortunately over the last several months he has had recurrence of his pain and feels the stimulator is no longer working for him. He was scheduled for an MRI but his stimulator was unable to be put in MRI mode. Upon further interrogation of his stimulator by his spinal cord stimulator practice representative, it was determined that there were issues with the leads. He reportedly did have recent CTs of his spine and x-rays. I did review a CT report which does state staggering over the leads at T7. Per the op note from 2021, these leads were placed at the middle aspect of the T7 vertebral body. At this point, he is interested in revision surgery and would like an updated generator as well. I do recommend that he meet with her surgeon to discuss these options. We will have his CTs and report from the spinal cord stimulator practice representative pushed over to our office for review and we will schedule him with our surgeon. I did instruct him to call with any questions or concerns in the meantime. After review, it does appear that the patient did have a CT of the lumbar spine. Given anticipated spinal cord stimulator revision, I also recommended obtaining dedicated thoracic imaging in the form of a CT thoracic spine without contrast. Patient is agreeable to this and we will coordinate this for him. I have reviewed the clinical findings with the patient in the office today, and the radiographic correlate was demonstrated to the patient in the exam room as well. I discussed the natural history, as well as conservative and surgical treatment options. I utilized spinal models and diagrams to act as visual aids during counseling today. I have answered the patient's questions today, following my consultation. The patient was advised to call with any questions. documented in this encounter [facility] 11-03-2023 Discharge summary Note Date/Time November 03, 2023 12:00pm [facility] Medical Records Department [address] [place] [address] Discharge Summary 11/03/23 1159 MR#: [id number] Acct: [id number] Name: TAMRA GUZMAN Rep #:[id number] : 1955 68 From: Von Park MD PCP: Dr. Mike Aburto MD Status:ADM I NO Location: [facility] [place] [id number] Providers Date of Admission: 11/02/23 Date of Discharge: 11/03/23 Primary Care Physician: Dr. Mike Aburto MD Reason For Visit: INTRACTABLE VERTIGO/FALLS Diagnosis Discharge Diagnosis (1) Vertigo: Status: Acute Code(s): R42 - Dizziness and giddiness (2) Sleep apnea treated with continuous positive airway pressure (CPAP): Status: Acute Code(s): G47.30 - Sleep apnea, unspecified (3) Polymyalgia rheumatica: Status: Acute Code(s): M35.3 - Polymyalgia rheumatica (4) Mild cognitive impairment: Status: Acute Code(s): G31.84 - Mild cognitive impairment of uncertain or unknown etiology (5) GERD (gastroesophageal reflux disease): Status: Acute Code(s): K21.9 - Gastro-esophageal reflux disease without esophagitis Plan Patient is a 68-year-old gentleman with history of cochlear implant presented with vertigo 1. Acute vertigo ? Secondary to BPPV. Requested for PT OT eval 2. GERD -Continue famotidine 3. Hearing loss with cochlear implant -Noted 4. DEMOND -CPAP nightly 5. Mild cognitive impairment -Will continue donepezil and memantine at this time 6. Polymyalgia rheumatica -Continue low-dose prednisone 7. DVT prophylaxis ? SCDs Time spent in the patient's overall evaluation,decision-making process, review of diagnostic data, adjustment of management, discussion with other providers, nursing nursing and ancillary staff involved in patient's care documentation,35 minutes Medications at Discharge Home Medications amlodipine 5 mg tablet 5 mg PO DAILY 05/27/20 prednisone 1 mg tablet 5 mg PO DAILY 05/27/20 cholecalciferol (vitamin D3) 25 mcg (1,000 unit) capsule 25 mcg PO DAILY 10/27/23 cyanocobalamin (vitamin B-12) 1,000 mcg capsule 1,000 mcg PO DAILY 10/27/23 donepezil 5 mg tablet 5 mg PO QHS 10/27/23 famotidine 40 mg tablet 40 mg PO DAILY 10/27/23 memantine 10 mg tablet 10 mg PO BID 10/27/23 meclizine 25 mg tablet 25 mg PO 4X/DAY PRN PRN Dizziness #20 tabs 11/02/23 Hospital Course Summary of Care Provided Minutes Spent on Discharge: 35 Physical Exam Narrative GENERAL: cooperative HEENT: Atraumatic; normocephalic EYES; Anicteric, Normal Conjunctiva NECK; supple, normal thyroid, RESPIRATORY: Diminished to auscultation CARDIOVASCULAR: Regular S1 S2, GI: soft, normoactive bowel sounds, : No Renal angle tenderness; EXTREMITIES: No edema, no clubbing, MUSCULOSKELETAL: no muscle wasting NEURO: Awake; no lateralizing signs. SKIN: No Rash PSYCH; Flat affect Weight / BMI Weight Weight: 91.217 kg Body Mass Index (BMI) 27.2 ABG / Lab / Microbiology Data 11/03/23 04:50 11/03/23 04:50 Laboratory: Laboratory Results - last 24 hr 11/03/23 04:50: WBC 5.9, RBC 5.17, Hgb 14.3, Hct 44.9, MCV 86.8, MCH 27.7, MCHC 31.8 L, RDW Std Deviation 42.6, RDW Coeff of Collin 13.4, Plt Count 159, MPV 9.5, Immature Gran % (Auto) 0.200, Neut % (Auto) 73.7 H, Lymph % (Auto) 18.1 L, [place] % (Auto) 6.1, Eos % (Auto) 1.7, Baso % (Auto) 0.2, Absolute Neuts (auto) 4.4, Absolute Lymphs (auto) 1.07, Nucleated RBC % 0, Sodium 140, Potassium 4.2, Chloride 109 H, Carbon Dioxide 28.0, Anion Gap 3 L, BUN 12, Creatinine 0.83, Estim Creat Clear Calc 90.90, Est GFR (MDRD) Af Amer 118, Est GFR (MDRD) Non-Af 98, BUN/Creatinine Ratio 14.5, Glucose 94, Calcium 8.9, Magnesium 2.1, Total Bilirubin 0.80, AST 18, ALT 19, Alkaline Phosphatase 102, Total Protein 6.0 L, Albumin 3.1 L, Globulin 2.9, Albumin/Globulin Ratio 1.1, TSH 0.39 D/C Instructions Discharge Diet: No restrictions Discharge Activity: Return to Normal Activity Call your doctor if you observe: Fever of 101 or Higher, Shortness of breath, Fainting spells and Chest pain Meaningful Use Info Meaningful Use Diagnoses (Choose all that apply): None applicable Discharge Plan Admission Admit Date/Time: 11/02/23 09:28 Attending Provider: Von Park Primary Care Provider: Mike Aburto Chi Consulting Providers: Mitra Martinez Instructions Patient Instructions: ED Vertigo, Unspecified Discharge Orders/Prescriptions Prescriptions: New meclizine 25 mg tablet 25 mg PO 4X/DAY PRN PRN (Reason: Dizziness) Qty: 20 0RF Continued cholecalciferol (vitamin D3) 25 mcg (1,000 unit) capsule 25 mcg PO DAILY donepezil 5 mg tablet 5 mg PO QHS famotidine 40 mg tablet 40 mg PO DAILY memantine 10 mg tablet 10 mg PO BID cyanocobalamin (vitamin B-12) 1,000 mcg capsule 1,000 mcg PO DAILY amlodipine 5 MG tablet 5 mg PO DAILY prednisone 1 MG tablet 5 mg PO DAILY Referrals / Follow Up: Shubham Jensen MD [Med Staff - Active Staff] - Within 1 Week Mike Aburto Chi, MD [Primary Care Provider] - 3-5 Days Disposition Disposition (needs filled in before D/C Order can be placed): Home, Self Care Charges/Coding Visit Charges Inpatient E&M: 86602 Disch Hosp >30min 11/03/23 1200 <Electronically signed by Von Park MD> Cosigner Signature (if applicable): CC: Dr. Von Park MD; Dr. Mike Aburto MD~ Signed [facility] Work Phone: 1(111) 416-757101-22-2024 Progress note Author Von Park [facility] November 03, 2023 8:12am Note Date/Time November 03, 2023 8 :07am [facility] Medical Records Department [address] [place] [id number] Progress Note - Hospitalist 11/03/23 0806 MR#: [id number] Acct: [id number] Name: TAMRA GUZMAN RON Rep #:[id number] : 1955 68 From: Von Park MD PCP: Dr. Mike Aburto MD Status:ADM I NO Location: [facility] [id number] Reason for Visit Reason for Visit: Diagnoses Mild cognitive impairment of uncertain or unknown etiology (11/02/23) Sleep apnea, unspecified (11/02/23) Gastro-esophageal reflux disease without esophagitis (11/02/23) Polymyalgia rheumatica (11/02/23) Dizziness and giddiness (11/02/23) Subjective Subjective Patient is a 68-year-old gentleman with history of cochlear implant presented with vertig Objective Data Objective Data Vital Signs: Vital Signs Temp Pulse Resp BP Pulse Ox O2 Del Method 98.5 F 70 18 159/98 H 98 Room Air 11/03/23 08:00 11/03/23 08:00 11/03/23 08:00 11/03/23 08:00 11/03/23 08:00 11/03/23 08:00 Oxygen Delivery Method Room Air Weight: 91.217 kg Body Mass Index (BMI) 27.2 Intake & Output: Intake and Output for Last 24 Hours 11/01/23 11/02/23 11/03/23 23:59 23:59 23:59 Intake Total 1000 / 1300 1590.83 / 1590.83 Balance 1000 / 1300 1590.83 / 1590.83 Lab / Micro Data 11/03/23 04:50 11/03/23 04:50 Labs: Laboratory Results - last 24 hr 11/03/23 04:50: WBC 5.9, RBC 5.17, Hgb 14.3, Hct 44.9, MCV 86.8, MCH 27.7, MCHC 31.8 L, RDW Std Deviation 42.6, RDW Coeff of Collin 13.4, Plt Count 159, MPV 9.5, Immature Gran % (Auto) 0.200, Neut % (Auto) 73.7 H, Lymph % (Auto) 18.1 L, [place] % (Auto) 6.1, Eos % (Auto) 1.7, Baso % (Auto) 0.2, Absolute Neuts (auto) 4.4, Absolute Lymphs (auto) 1.07, Nucleated RBC % 0, Sodium 140, Potassium 4.2, Chloride 109 H, Carbon Dioxide 28.0, Anion Gap 3 L, BUN 12, Creatinine 0.83, Estim Creat Clear Calc 90.90, Est GFR (MDRD) Af Amer 118, Est GFR (MDRD) Non-Af 98, BUN/Creatinine Ratio 14.5, Glucose 94, Calcium 8.9, Magnesium 2.1, Total Bilirubin 0.80, AST 18, ALT 19, Alkaline Phosphatase 102, Total Protein 6.0 L, Albumin 3.1 L, Globulin 2.9, Albumin/Globulin Ratio 1.1, TSH 0.39 Physical Exam Narrative GENERAL: cooperative HEENT: Atraumatic; normocephalic EYES; Anicteric, Normal Conjunctiva NECK; supple, normal thyroid, RESPIRATORY: Diminished to auscultation CARDIOVASCULAR: Regular S1 S2, GI: soft, normoactive bowel sounds, : No Renal angle tenderness; EXTREMITIES: No edema, no clubbing, MUSCULOSKELETAL: no muscle wasting NEURO: Awake; no lateralizing signs. SKIN: No Rash PSYCH; Flat affect Assessment & Plan Assessment/Plan (1) Vertigo: (2) Sleep apnea treated with continuous positive airway pressure (CPAP): (3) Polymyalgia rheumatica: (4) Mild cognitive impairment: (5) GERD (gastroesophageal reflux disease): PLAN: Plan Patient is a 68-year-old gentleman with history of cochlear implant presented with vertigo 1. Acute vertigo ? Secondary to BPPV. Requested for PT OT eval 2. GERD -Continue famotidine 3. Hearing loss with cochlear implant -Noted 4. DEMOND -CPAP nightly 5. Mild cognitive impairment -Will continue donepezil and memantine at this time 6. Polymyalgia rheumatica -Continue low-dose prednisone 7. DVT prophylaxis ? SCDs Time spent in the patient's overall evaluation,decision-making process, review of diagnostic data, adjustment of management, discussion with other providers, nursing nursing and ancillary staff involved in patient's care documentation,35 minutes Charges/Coding Visit Charges Inpatient E&M: 12693 Subs Hosp L2 11/03/23 0812 <Electronically signed by Von Park MD> Cosigner Signature (if applicable): CC: ~ Signed [facility] Work Phone: 1(983) 726-933801-21-2024 History and physical note Author Mitra Martinez [facility] November 02, 2023 9:43am Note Date/Time November 02, 2023 9 :30am [facility] Medical Records Department [address] [place] [address] H&P Exam - Hospitalist 11/02/23 0928 MR#: [id number] Acct: [id number] Name: TAMRA GUZMAN Rep #:[id number] : 1955 68 From: Mitra Martinez MD PCP: Dr. Mike Aburto MD Status:ADM I NO Location: [place] [address]-1 HPI - General General Date of Admission: 11/02/23 Date of Service: 11/02/23 Chief Complaint: Vertigo HPI Narrative TAMRA GUZMAN, is a 68-year-old male history of cochlear implant, GERD, PMR, mild cognitive impairment, sleep apnea, hypertension, presented to [facility] 11/02/2023 with vertigo, nausea, vomiting with a true spinningsensation that causes nausea and vomiting. Worsened when bending over or turning head. Has not had this in the past. In the ED symptoms concerning for BPPV, given meclizine and Valium with some improvement however patient still unsteady and unable to ambulate and high fall risk so hospitalist contacted for admission. Patient seen at bedside with , symptoms started on Friday and are intermittent, he had observed his eyes jumping to the right during one of thesymptoms and reports that symptoms will come on suddenly if he bends over or suddenly turns his head, has sudden movements but just sitting there at this time he is not having symptoms. Has had several falls associated with the symptoms. Denies any cough, nasal congestion, sore throat, fevers or any other infectious symptoms. Has no numbness, weakness, tingling or other neurologic symptoms. Denies any recent medication changes, had a cochlear implant put in but that was back in July and had not had the symptoms until Friday. [facility] Medical History (Updated 11/02/23 @ 05:[address] Arik Cade MD) Acute maxillary sinusitis, unspecified Alzheimer's disease Bilateral sensorineural hearing loss Chronic cough Cochlear implant in place Dysphagia Esophageal stenosis GERD (gastroesophageal reflux disease) Hearing loss Hereditary hearing loss Hiatal hernia Hyperlipidemia Hypertension Mild cognitive impairment Non-pressure chronic ulcer of right calf with fat layer exposed Pancreatic cyst Peripheral nerve neurostimulator device in situ Polymyalgia rheumatica Sleep apnea treated with continuous positive airway pressure (CPAP) Spinal stenosis at L4-L5 level Traumatic open wound of right lower leg Home Medications amlodipine 5 mg tablet 5 mg PO DAILY 05/27/20 [History Last Taken 05/27/20] prednisone 1 mg tablet 5 mg PO DAILY 05/27/20 [History Last Taken 04/29/23] cholecalciferol (vitamin D3) 25 mcg (1,000 unit) capsule 25 mcg PO DAILY 10/27/23 [History Last Taken Unknown] cyanocobalamin (vitamin B-12) 1,000 mcg capsule 1,000 mcg PO DAILY 10/27/23 [History Last Taken Unknown] donepezil 5 mg tablet 5 mg PO QHS 10/27/23 [History Last Taken Unknown] famotidine 40 mg tablet 40 mg PO DAILY 10/27/23 [History Last Taken Unknown] memantine 10 mg tablet 10 mg PO BID 10/27/23 [History Last Taken Unknown] meclizine 25 mg tablet 25 mg PO 4X/DAY PRN PRN Dizziness #20 tabs 11/02/23 [Rx Last Taken Unknown] Allergy/AdvReac Type Severity Reaction Status Date / Time No Known Allergies Allergy Verified 10/27/23 15:59 Surgical History (Updated 11/02/23 @ 05:[address] Arik Cade MD) History of cochlear implant History of total bilateral knee replacement Social History Smoking Status: Never smoker ROS ROS Narrative General: Denies fever/chills HENT: Denies headache, denies stuffy nose, denies sore throat EYES: Reports vision only changes when he is having the episodes and his eyes are jerking Resp: Denies cough, denies shortness of breath Cardiac: Denies chest pain GI: Denies abdominal pain, denies changes in bowel, denies nausea/vomiting : Denies changes in urination Extremity: Denies swelling MSK: Denies weakness Neuro: Denies any numbness/tingling, spinning sensation when he bends over or moves in certain positions Heme: Denies any bleeding or bruising Skin: Denies rashes Psychiatric: No complaints voiced Vital Signs Vital Signs Vital Signs: 11/02/23 05:27 11/02/23 05:30 11/02/23 05:34 Temperature 98.1 F Temperature Source Temporal Pulse Rate 87 Respiratory Rate 19 H Respiratory Effort Normal Respiratory Pattern Normal Blood Pressure 182/120 H 149/99 H Blood Pressure Mean 140 115 Pulse Ox 99 Oxygen Delivery Method Room Air 11/02/23 06:39 11/02/23 09:00 Temperature Temperature Source Pulse Rate 67 Respiratory Rate 14 20 H Respiratory Effort Respiratory Pattern Blood Pressure 133/84 H Blood Pressure Mean 100 Pulse Ox 94 Oxygen Delivery Method Room Air Weight Weight: 89.9 kg Body Mass Index (BMI) 26.9 Physical Exam Narrative General: Alert, oriented, no apparent distress HEENT: Atraumatic, normocephalic Eyes: Anicteric, normal conjunctiva, extraocular movements intact, pupils equal Neck: Supple Respiratory: Clear to auscultation bilaterally, normal respiratory effort Cardiovascular: Regular rate and rhythm GI: Soft, nontender, nondistended Extremities: No edema Musculoskeletal: Strength 5 out of 5 in right upper extremity, 5 out of 5 left upper extremity, 5 out of 5 right lower extremity, 5 out of 5 left lower extremity Neuro: No overt focal neurological deficits, cranial nerves II through XII intact, [id number] without significant difficulty bilaterally Skin: No rashes appreciated Psych: Cooperative Results Lab / Micro Data 11/02/23 05:30 11/02/23 05:30 Labs: Laboratory Results - last 24 hr 11/02/23 05:30: WBC 7.0, RBC 5.25, Hgb 15.0, Hct 45.4, MCV 86.5, MCH 28.6, MCHC 33.0, RDW Std Deviation 42.6, RDW Coeff of Collin 13.4, Plt Count 189, MPV 9.7, Immature Gran % (Auto) 0.400, Neut % (Auto) 60.5, Lymph % (Auto) 27.7, [place] % (Auto) 8.4, Eos % (Auto) 2.6, Baso % (Auto) 0.4, Absolute Neuts (auto) 4.3, Absolute Lymphs (auto) 1.95, Nucleated RBC % 0, Sodium 140, Potassium 3.5, Chloride 107, Carbon Dioxide 25.0, Anion Gap 8, BUN 16, Creatinine 0.94, Estim Creat Clear Calc 80.26, Est GFR (MDRD) Af Amer 103, Est GFR (MDRD) Non-Af 85, BUN/Creatinine Ratio 17.1, Glucose 128 H, Calcium 8.9 11/02/23 05:32: POC Glucose 114 H Imagaing Radiology Impression Brain CT 11/02/23 05:43 IMPRESSION: 1. Mild chronic involutional changes of the brain. 2. No demonstrated acute intracranial process. 3. Status post right cochlear implant. 4. Opacification of numerous small right mastoid air cells, of indeterminate chronicity. Electronically Signed: Shayne Brady MD at 6:22 EST , Assessment & Plan Assessment/Plan (1) Vertigo: (2) Sleep apnea treated with continuous positive airway pressure (CPAP): (3) Polymyalgia rheumatica: (4) Mild cognitive impairment: (5) GERD (gastroesophageal reflux disease): PLAN: Plan #Verigo -Suspect BPPV -Neuroexam normal and symptoms classic for this, PT/OT, will likely need vestibular rehab if not proving -Zofran and meclizine as needed, will also gently hydrate -No infectious symptoms or concern for vestibular neuritis at this time -CT head with mild chronic changes and opacification of small right mastoid air cells of indeterminate chronicity -Given normal neuroexam and his symptoms do not feel he needs urgent MRI at thistime, if symptoms change or do not improve could always consider this and/or neurology consult however suspect patient will continue to improve and will needshort stay in the hospital -Fall precautions #GERD -Continue famotidine # Hearing loss with cochlear implant -Noted # DEMOND -CPAP nightly # MCI -Will continue donepezil and memantine at this time # PMR -Continue low-dose prednisone #DVT ppx: SCDs Mitra Martinez MD Time spent in the patient's overall evaluation,decision-making process, review of diagnostic data, adjustment of management, discussion with other providers, nursing nursing and ancillary staff involved in patient's care documentation, 57minutes Charges/Coding Visit Charges Inpatient E&M: 29811 Init Hosp L2 11/02/23 0943 <Electronically signed by Mitra Martinez MD> Cosigner Signature (if applicable): CC: Dr. Mitra Martinez MD; Dr. Mike Aburto MD~ Signed [facility] Work Phone: 1(376) 804-347001-21-2024 Discharge summary Author Arik Cade [facility] November 02, 2023 9:26am Note Date/Time November 02, 2023 5 :50am [facility] Medical Records Department [address] [place] [address] Emergency Department Summary 11/02/23 MR#: [id number] Acct: [id number] Name: TAMRA GUZMAN Rep #:[id number] : 1955 68 From: Arik Cade MD PCP: Dr. Mike Aburto MD Status:REG E R Location: ED [facility] History of Present Illness Chief Complaint: Dizziness Informant: patient and spouse/S.O. Narrative Narrative: Patient presents with vertigo and nausea and vomiting. He states this started Friday. He has a sense of true spinning. He states he has noted a couple times that his eyes will flick quickly to the right side and then back to the middle when he is very vertiginous. This causes him to get nausea and vomiting. He has no abdominal pain. No chest pain palpitations. Hehas not been syncopal or near syncopal. He has no numbness tingling weakness. No headache. No trauma. He states it is worse if he bends over and turns. He is not sure if it is turning to the right or left is worse. He has not had thisin the past. He does not get the nausea and vomiting until he gets the vertigo. He fell once when he leaned over to take his boots off but he did not hurt himself. He is not on blood thinners. [facility] Medical History (Updated 11/02/23 @ 05:[address] Arik Cade MD) Acute maxillary sinusitis, unspecified Alzheimer's disease Bilateral sensorineural hearing loss Chronic cough Cochlear implant in place Dysphagia Esophageal stenosis GERD (gastroesophageal reflux disease) Hearing loss Hereditary hearing loss Hiatal hernia Hyperlipidemia Hypertension Mild cognitive impairment Non-pressure chronic ulcer of right calf with fat layer exposed Pancreatic cyst Peripheral nerve neurostimulator device in situ Polymyalgia rheumatica Sleep apnea treated with continuous positive airway pressure (CPAP) Spinal stenosis at L4-L5 level Traumatic open wound of right lower leg Home Medications amlodipine 5 mg tablet 5 mg PO DAILY 05/27/20 [History Last Taken 05/27/20] prednisone 1 mg tablet 5 mg PO DAILY 05/27/20 [History Last Taken 04/29/23] cholecalciferol (vitamin D3) 25 mcg (1,000 unit) capsule 25 mcg PO DAILY 10/27/23 [History Last Taken Unknown] cyanocobalamin (vitamin B-12) 1,000 mcg capsule 1,000 mcg PO DAILY 10/27/23 [History Last Taken Unknown] donepezil 5 mg tablet 5 mg PO QHS 10/27/23 [History Last Taken Unknown] famotidine 40 mg tablet 40 mg PO DAILY 10/27/23 [History Last Taken Unknown] memantine 10 mg tablet 10 mg PO BID 10/27/23 [History Last Taken Unknown] meclizine 25 mg tablet 25 mg PO 4X/DAY PRN PRN Dizziness #20 tabs 11/02/23 [Rx Last Taken Unknown] Allergy/AdvReac Type Severity Reaction Status Date / Time No Known Allergies Allergy Verified 10/27/23 15:59 Surgical History (Updated 11/02/23 @ 05:[address] Arik Cade MD) History of cochlear implant History of total bilateral knee replacement Social History Smoking Status: Never smoker ROS ROS ED Constitutional Constitutional ED: Denies chills, fever(s) or subjective Eyes Eyes: Reports other Details: Eye motion with horizontal nystagmus noted per patient. ; Denies blurry vision, change in vision or diplopia ENT ENT ED: Denies ear pain, rhinorrhea or sore throat Cardiovascular Cardiovascular: Denies chest pain Respiratory/Chest Respiratory/Chest: Denies cough or dyspnea Gastrointestinal Gastrointestinal: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 Dressing Applied Mepilex Border, Promogran -Mepilex Border 1 -Promogran 1 Treatment Response Procedure Tolerated Well Pain Scale: 0-10 Numeric Is Patient Pain Free? Yes - Visit Discharge Discharge Condition Stable Ambulatory Status Ambulatory Transportation Private Auto Assessment/Plan Assessment/Plan (1) Traumatic open wound of right lower leg: CODE(S): S81.801A - Unspecified open wound, right lower leg, initial encounter QUALIFIERS: Encounter type: subsequent encounter Qualified Code(s): S81.801D - Unspecified open wound, right lower leg, subsequent encounter (2) Non-pressure chronic ulcer of right calf with fat layer exposed: CODE(S): L97.212 - Non-pressure chronic ulcer of right calf with fat layerexposed (3) GERD (gastroesophageal reflux disease): CODE(S): K21.9 - Gastro-esophageal reflux disease without esophagitis (4) Pancreatic cyst: CODE(S): K86.2 - Cyst of pancreas (5) Esophageal stenosis: CODE(S): K22.2 - Esophageal obstruction (6) Hiatal hernia: CODE(S): K44.9 - Diaphragmatic hernia without obstruction or gangrene (7) Dysphagia: CODE(S): R13.10 - Dysphagia, unspecified (8) Alzheimer's disease: CODE(S): G30.9 - Alzheimer's disease, unspecified; F02.80 - Dementia in other diseases classified elsewhere, unspecified severity, without behavioral disturbance, psychotic disturbance, mood disturbance, and anxiety (9) Mild cognitive impairment: CODE(S): G31.84 - Mild cognitive impairment of uncertain or unknown etiology (10) Sleep apnea treated with continuous positive airway pressure (CPAP): CODE(S): G47.30 - Sleep apnea, unspecified (11) Hearing loss: CODE(S): H91.90 - Unspecified hearing loss, unspecified ear (12) Spinal stenosis at L4-L5 level: CODE(S): M48.061 - Spinal stenosis, lumbar region without neurogenic claudication (13) Polymyalgia rheumatica: CODE(S): M35.3 - Polymyalgia rheumatica (14) Hyperlipidemia: CODE(S): E78.5 - Hyperlipidemia, unspecified (15) Hypertension: CODE(S): I10 - Essential (primary) hypertension (16) Chronic cough: CODE(S): R05.3 - Chronic cough (17) History of total bilateral knee replacement: CODE(S): Z96.653 - Presence of artificial knee joint, bilateral (18) Peripheral nerve neurostimulator device in situ: CODE(S): Z96.82 - Presence of neurostimulator PLAN: Plan This is a 68-year-old male who presented with a traumatic wound to the right pretibial surface. The injury occurred on April 12, 2023. Patient has since beenevaluated in the urgent care facility at the [facility] 3 courses of oral antibiotics have been administered, including Keflex, Levaquin, and clindamycin. The patient has used Bactroban topically, but more recently has left the wound open to air. Initially, a skin flap was created at the time of the injury, which was repositioned by the patient. However, the skin flap did not remain viable, and the patient presented with an open wound on the right pretibial surface. The patient has been encouraged to optimize nutritional intake. He is active, and ambulates liberally. It is unlikely that there is significant underlying arterial occlusive disease, based upon the patient's history. We are to implement the use of collagen hydrogel which will be applied topically on a daily basis. The patient has been instructed in the appropriate means of application. Given the patient's varicose veins, he has been given Tubigrip's of 20 to 30 mmHg compression, which are to be worn daily. The patient is to return in 2 weeks for reassessment. The patient's wound is now nearly totally healed, and may well be completely healed by the time of his next visit. Total time: 22 minutes 05/27/23 1338 <Electronically signed by Roel Black MD> Cosigner Signature (if applicable): CC: ~ Signed [facility] Work Phone: [phone]) 975-197408-01-2023 History and physical note Author Roel Black [facility] May 13, 2023 3:12pm Note Date/Time May 13, 2023 2:3 5pm [facility] [address] [place] [address] H&P Exam - Wound Care 05/13/23 1431 MR#: [id number] Acct: [id number] Name: TAMRA GUZMAN Rep #:[id number] : 1955 68 From: Roel Romero PCP: Dr. Mike Aburto MD Status:REG R CR Location: ADDENDUM by Dr. Roel Black MD on 05/13/23 at 1512 Addendum Diagnosis: L97.212 Non-pressure ulcer of right calf with fat layer exposed 05/13/23 1512<Electronically signed by Roel Black MD> Cosigner Signature (if applicable): cc: ~* Signed History of Present Illness Date of Service: 05/13/23 Chief Complaint: Traumatic wound, right pretibial surface History of Wound: This is a 68-year-old male who sustained a traumatic wound of the right pretibial surface on April 12, 2023. This portion of his leg impacted ahard surface of his jeep, resulting in a traumatic wound. The patient subsequently was evaluated at the urgent care center at the [facility] on April 19, 2023, and was then referred to his primary care physician, Dr. Aburto. Since that time, the patient has been prescribed Keflex 500 mg p.o. 3 times daily for 7 days, Levaquin 500 mg daily for 7 days, and is now finishing a prescription for clindamycin 300 mg p.o. 3 times daily for 7 days. The patient has been leaving his open wound open to air most recently, but had previously been using Bactroban topically. Patient has chronically been on prednisone daily long-term. With respect to his traumatic wound, initially there was a skin flap, and the patient carefully repositioned the flap of skin, which subsequently failed to remain viable. The patient is active. He ambulates liberally. He is able to ambulate several blocks without difficulty. He sleepson a flat surface at night. He denies a history of thrombophlebitis. [facility] Medical History Alzheimer's disease Chronic cough Dysphagia Esophageal stenosis GERD (gastroesophageal reflux disease) Hearing loss Hiatal hernia Hyperlipidemia Hypertension Mild cognitive impairment Pancreatic cyst Peripheral nerve neurostimulator device in situ Polymyalgia rheumatica Sleep apnea treated with continuous positive airway pressure (CPAP) Spinal stenosis at L4-L5 level Traumatic open wound of right lower leg Home Medications amlodipine 5 mg tablet 5 mg PO DAILY 05/27/20 [History Last Taken 05/27/20] dextroamphetamine-amphetamine ER 30 mg 24hr capsule,extend release 30 mg PO DAILY 05/27/20 [History Last Taken 05/27/20] prednisone 1 mg tablet 4 mg PO DAILY 05/27/20 [History Last Taken 04/29/23] Allergy/AdvReac Type Severity Reaction Status Date / Time No Known Allergies Allergy Verified 04/29/23 08:56 Surgical History History of total bilateral knee replacement Social History Smoking Status: Never smoker Vital Signs Vital Signs Vital Signs: 05/13/23 00:42 Temperature 97.9 F Pulse Rate 84 Respiratory Rate 18 Blood Pressure 141/91 H Blood Pressure Mean 107 Blood Pressure Location Left Arm Weight Weight: 200 lb Body Mass Index (BMI) 27.1 Physical Exam Const alert, oriented x3, no apparent distress, average body habitus and well nourished Constitutional Narrative: BMI is 27.1. The patient demonstrates a hearing deficit. General Appearance: cooperative, comfortable, well kempt and well developed Orientation / Consciousness: awake, oriented to person, oriented to place and oriented to time HEENT normocephalic and head/scalp atraumatic HEENT Narrative: Hearing deficit is noted. Head and Scalp: normal to inspection, normocephalic and atraumatic External Ear: external ears normal Eyes PERRL and EOMs intact bilaterally General Eye: normal appearance of both eyes Resp normal respiratory effort, normal air movement, no retractions and no use of accessory muscles Effort and Inspection: able to speak in complete sentences and symmetric chest movement Extremity no calf tenderness General Extremity: Negative for clubbing or cyanosis Skin Wound Narrative: Scattered varicosities are noted in the patient's lower extremities, some of which are large. A traumatic wound is noted on the right pretibial surface. There is no significant periwound erythema. There is a moderate amount of nonviable tissue and bioburden. Dimensions are documented elsewhere. There is no sign of infection or cellulitis. Several Band-Aids are in place in the patient's lower extremities, the sites of recent minor lesion excisions by the patient's method consultant, Dr. Taj Boothe. Neuro oriented x3, CN's II-XII intact bilaterally, moves all extremities, no focal motor deficits and no sensory deficits noted Sensorium / Orientation: awake, alert, oriented to person, oriented to place andoriented to time Psych Appearance: grossly normal and appropriate Attitude: calm Activity / Motor Behavior: appropriate eye contact Speech: normal speech Mood & Affect: euthymic mood Thought Process: normal thought process Thought Content: normal thought content Attention / Concentration: attention grossly intact Debridement Note Debridement Note Wound debrided: Right pretibial surface Laterality: Right Type of Debridement: Excisional debridement Anesthesia Used: 5% Lidocaine Gel and Cetacaine Depth: Down to and including healthy tissue and in the subcutaneous layer Percentage of wound debrided: 100 Instrument Used: 5mm curette Tissue Removed: Eschar, bioburden, nonviable tissue Severity: Fat Layer Exposed Amount of bleeding with debridement: Mild Bleeding Controlled with: Compression and gauze Patient tolerated procedure: Patient tolerated procedure well Post-Debridement Measurements and Additional Note: Post-Debridement Measurements/Treatment WC - Nurse 2 - General Ulcer CM Notes Start: 05/13/23 09:15 Freq: Status: Active Protocol: Activity Type Activity Date Activity User E-sign Co-sign Detail Recorded Client Recorded Date Recorded By Document 05/13/23 12:30 PL [id number] 05/13/23 12:32 PL 05/13/23 12:30 Wound Center Nurse 2 #1 right diana -Time 09:34 -Correct Patient Yes -Correct Side, Site, Position Yes -Correct Procedure Yes -Procedure Performed Yes -Type of Procedure Debridement -Clinical Debridement Subcutaneous -Tissue Removed Subcutaneous -Post Debridement (cm) - Length 2.0 -Post Debridement (cm) - Width 1.6 -Post Debridement (cm) - Depth 0.1 -Total Square (Post) (cm) 3.20 -Area of Debridement (cm) - Length 2.0 -Area of Debridement (cm) - Width 1.6 -Total Square (Area) (cm) 3.20 -Tunneling No -Undermining/Tunneling No -Circular Undermining No -Wound/Ulcer Outcome Not Healed -Ulcer Cleansing Rinsed/ Irrigated with Saline -Foul Odor after Cleansing No -Bioengineered Tissue No -Bleeding Controlled with Pressure -Treatment Response Procedure Tolerated Well -Debridement - Subq, 1st 20sq cm Yes Pain Scale: 0-10 Numeric Is Patient Pain Free? Yes - Nurse 3 - General Ulcer D/C NN Start: 05/13/23 09:15 Freq: Status: Active Protocol: Activity Type Activity Date Activity User E-sign Co-sign Detail Recorded Client Recorded Date Recorded By Document 05/13/23 09:47 DL [id number] 05/13/23 09:48 DL 05/13/23 09:47 Wound Care Center Nurse 3 #1 right diana -Ulcer Cleansing Rinsed/ Irrigated with Saline -Foul Odor after Cleansing No -Primary Dressing Applied Mepilex Border, Promogran -Mepilex Border 1 -Promogran 1 Treatment Response Procedure Tolerated Well Pain Scale: 0-10 Numeric Is Patient Pain Free? Yes - Visit Discharge Discharge Condition Stable Ambulatory Status Ambulatory Transportation Private Auto Assessment/Plan Assessment/Plan (1) Traumatic open wound of right lower leg: CODE(S): S81.801A - Unspecified open wound, right lower leg, initial encounter QUALIFIERS: Encounter type: subsequent encounter Qualified Code(s): S81.801D - Unspecified open wound, right lower leg, subsequent encounter (2) GERD (gastroesophageal reflux disease): CODE(S): K21.9 - Gastro-esophageal reflux disease without esophagitis (3) Pancreatic cyst: CODE(S): K86.2 - Cyst of pancreas (4) Esophageal stenosis: CODE(S): K22.2 - Esophageal obstruction (5) Hiatal hernia: CODE(S): K44.9 - Diaphragmatic hernia without obstruction or gangrene (6) Dysphagia: CODE(S): R13.10 - Dysphagia, unspecified (7) Alzheimer's disease: CODE(S): G30.9 - Alzheimer's disease, unspecified; F02.80 - Dementia in other diseases classified elsewhere, unspecified severity, without behavioral disturbance, psychotic disturbance, mood disturbance, and anxiety (8) Mild cognitive impairment: CODE(S): G31.84 - Mild cognitive impairment of uncertain or unknown etiology (9) Sleep apnea treated with continuous positive airway pressure (CPAP): CODE(S): G47.30 - Sleep apnea, unspecified (10) Hearing loss: CODE(S): H91.90 - Unspecified hearing loss, unspecified ear (11) Spinal stenosis at L4-L5 level: CODE(S): M48.061 - Spinal stenosis, lumbar region without neurogenic claudication (12) Polymyalgia rheumatica: CODE(S): M35.3 - Polymyalgia rheumatica (13) Hyperlipidemia: CODE(S): E78.5 - Hyperlipidemia, unspecified (14) Hypertension: CODE(S): I10 - Essential (primary) hypertension (15) Chronic cough: CODE(S): R05.3 - Chronic cough (16) History of total bilateral knee replacement: CODE(S): Z96.653 - Presence of artificial knee joint, bilateral (17) Peripheral nerve neurostimulator device in situ: CODE(S): Z96.82 - Presence of neurostimulator PLAN: Plan This is a 68-year-old male who presented with a traumatic wound to the right pretibial surface. The injury occurred on April 12, 2023. Patient has since beenevaluated in the urgent care facility at the [facility] 3 courses of oral antibiotics have been administered, including Keflex, Levaquin, and clindamycin. The patient has used Bactroban topically, but more recently has left the wound open to air. Initially, a skin flap was created at the time of the injury, which was repositioned by the patient. However, the skin flap did not remain viable, and the patient presented with an open wound on the right pretibial surface. The patient has been encouraged to optimize nutritional intake. He is active, and ambulates liberally. It is unlikely that there is significant underlying arterial occlusive disease, based upon the patient's history. We are to continue the useof Promogran topically, which will be applied on a daily basis. The patient hasbeen instructed in the appropriate means of application. Given the patient's varicose veins, he has been given Tubigrip's of 20 to 30 mmHg compression, whichare to be worn daily. The patient is to return in 1 week for reassessment. We are to consider the use of a skin substitute, and we will request preauthorization for the use of EpiFix. Total time: 24 minutes 05/13/23 6595 <Electronically signed by Roel Black MD> Cosigner Signature (if applicable): CC: ~ Signed [facility] Work Phone: [phone]) [phone] History and physical note Author Roel Black [facility] May 06, 2023 8:45am Note Date/Time May 06, 2023 8:45 am [facility] [address] [place] [id number] H&P Exam - Wound Care 05/06/23 0841 MR#: [id number] Acct: [id number] Name: TAMRA GUZMAN Rep #:[id number] : 1955 68 From: Roel Romero PCP: Dr. Mike Aburto MD Status:REG R CR Location: History of Present Illness Date of Service: 05/06/23 Chief Complaint: Traumatic wound, right pretibial surface History of Wound: This is a 68-year-old male who sustained a traumatic wound of the right pretibial surface on April 12, 2023. This portion of his leg impacted ahard surface of his jeep, resulting in a traumatic wound. The patient subsequently was evaluated at the urgent care center at the [facility] on April 19, 2023, and was then referred to his primary care physician, Dr. Aburto. Since that time, the patient has been prescribed Keflex 500 mg p.o. 3 times daily for 7 days, Levaquin 500 mg daily for 7 days, and is now finishing a prescription for clindamycin 300 mg p.o. 3 times daily for 7 days. The patient has been leaving his open wound open to air most recently, but had previously been using Bactroban topically. Patient has chronically been on prednisone daily long-term. With respect to his traumatic wound, initially there was a skin flap, and the patient carefully repositioned the flap of skin, which subsequently failed to remain viable. The patient is active. He ambulates liberally. He is able to ambulate several blocks without difficulty. He sleeps on a flat surface at night. He denies a history of thrombophlebitis. [facility] Medical History Alzheimer's disease Chronic cough Dysphagia Esophageal stenosis GERD (gastroesophageal reflux disease) Hearing loss Hiatal hernia Hyperlipidemia Hypertension Mild cognitive impairment Pancreatic cyst Peripheral nerve neurostimulator device in situ Polymyalgia rheumatica Sleep apnea treated with continuous positive airway pressure (CPAP) Spinal stenosis at L4-L5 level Traumatic open wound of right lower leg Home Medications amlodipine 5 mg tablet 5 mg PO DAILY 05/27/20 [History Last Taken 05/27/20] dextroamphetamine-amphetamine ER 30 mg 24hr capsule,extend release 30 mg PO DAILY 05/27/20 [History Last Taken 05/27/20] prednisone 1 mg tablet 4 mg PO DAILY 05/27/20 [History Last Taken 04/29/23] Allergy/AdvReac Type Severity Reaction Status Date / Time No Known Allergies Allergy Verified 04/29/23 08:56 Surgical History History of total bilateral knee replacement Social History Smoking Status: Never smoker Vital Signs Vital Signs Vital Signs: 05/06/23 08:11 Temperature 97.9 F Temperature Source Temporal Pulse Rate 84 Respiratory Rate 18 Blood Pressure 141/91 H Blood Pressure Mean 107 Blood Pressure Source Monitor Weight Weight: 200 lb Body Mass Index (BMI) 27.1 Physical Exam Const alert, oriented x3, no apparent distress, average body habitus and well nourished Constitutional Narrative: BMI is 27.1. The patient demonstrates a hearing deficit. General Appearance: cooperative, comfortable, well kempt and well developed Orientation / Consciousness: awake, oriented to person, oriented to place and oriented to time HEENT normocephalic and head/scalp atraumatic HEENT Narrative: Hearing deficit is noted. Head and Scalp: normal to inspection, normocephalic and atraumatic External Ear: external ears normal Eyes PERRL and EOMs intact bilaterally General Eye: normal appearance of both eyes Resp normal respiratory effort, normal air movement, no retractions and no use of accessory muscles Effort and Inspection: able to speak in complete sentences and symmetric chest movement Extremity no calf tenderness General Extremity: Negative for clubbing or cyanosis Skin Wound Narrative: Scattered varicosities are noted in the patient's lower extremities, some of which are large. A traumatic wound is noted on the right pretibial surface. There is no significant periwound erythema. There is a moderate amount of nonviable tissue and bioburden. Dimensions are documented elsewhere. The woundhas diminished in size. There is no sign of infection or cellulitis. Neuro oriented x3, CN's II-XII intact bilaterally, moves all extremities and no focal motor deficits Sensorium / Orientation: awake, alert, oriented to person, oriented to place andoriented to time Psych Appearance: grossly normal and appropriate Attitude: calm Activity / Motor Behavior: appropriate eye contact Speech: normal speech Mood & Affect: euthymic mood Thought Process: normal thought process Thought Content: normal thought content Attention / Concentration: attention grossly intact Debridement Note Debridement Note Wound debrided: Right pretibial surface Laterality: Right Type of Debridement: Excisional debridement Anesthesia Used: 5% Lidocaine Gel and Cetacaine Depth: Down to and including healthy tissue and in the subcutaneous layer Percentage of wound debrided: 100 Instrument Used: 5mm curette Tissue Removed: Eschar, bioburden, nonviable tissue Severity: Fat Layer Exposed Amount of bleeding with debridement: Mild Bleeding Controlled with: Compression and gauze Patient tolerated procedure: Patient tolerated procedure well Post-Debridement Measurements and Additional Note: Post-Debridement Measurements/Treatment TANNER - Nurse 1 - General Ulcer Assessment Start: 04/29/23 08:11 Freq: Status: Active Protocol: BEBO Activity Type Activity Date Activity User E-sign Co-sign Detail Recorded Client Recorded Date Recorded By Document 04/29/23 08:11 MW [id number] 04/29/23 08:30 MW Document 05/06/23 08:11 DL [id number] 05/06/23 08:16 DL 04/29/23 05/06/23 08:11 08:11 WC - Today's Visit Information Type of service Initial Visit Follow-up Visit (Physician/[employer] ACTIVITIES CLERK ) Arrival Mode Ambulatory Ambulatory Transfer Assistance None None Accompanied by Patient Identification Verified (Name & No Yes ) Patient Requires Transmission-Based No No Precautions Safety Precautions NA Height and Weight Height 6 ft Weight 200 lb Weight in Pounds 200.0 lbs Body Mass Index (BMI) 27.1 27.1 BMI Classification Overweight Overweight BSA - Elizabeth 2.13 Vital Signs Temperature (97.8 F-99.1 F) 97.6 F L 97.9 F Temperature Source Temporal Temporal Pulse Rate (60-100) 86 84 Pulse Location Monitor Monitor Respiratory Rate (12-18) 16 18 Respiratory rate source Observation Observation Oxygen Delivery Method Room Air Blood Pressure (90/60-120/80) 139/93 H 141/91 H Blood Pressure Mean 108 107 Source Monitor Monitor Position Sitting Blood Pressure Location Left Arm History Since Last Visit- (Skip if this is Patient's initial visit) Have you changed medications since your No last visit? Any new allergies or adverse reactions No Had a fall/change in ADL's that may No increase risk of falls Signs or symptoms of abuse and/or No neglect since last visit Have you been in the hospital since your No last visit? Has dressing in place as prescribed Yes Has compression in place as prescribed Yes Has offloadiing in place as prescribed N/A Experienced any changes in pain level or No management Left Footwear Regular Shoe Right Footwear Regular Shoe Pain Scale: 0-10 Numeric Is Patient Pain Free? Yes Yes Lower Extremity Assessment/ Foot Assessment/ Toe Nail Assessment Right -Posterior Tibial Palpable Yes -Posterior Tibial Doppler Monophasic -Dorsalis Pedis Palpable Yes -Dorsalis Pedis Doppler Multiphasic -Extremity Color Hemosiderin -Hair Growth on Legs No -Hair Growth on Toes No -Temperature of Extremity Warm -Capillary Refill Less than 3 Seconds -Dependent Rubor No -Blanched when Elevated No -Lipodermatosclerosis No -Other Deformity No -Prior Foot Ulcer No -Charcot Joint No -Prior Amputation No -Thick No -Discolored No -Deformed No -Improper Length & Hygeine No Left -Posterior Tibial Palpable Yes -Posterior Tibial Doppler Monophasic -Dorsalis Pedis Palpable Yes -Dorsalis Pedis Doppler Multiphasic -Extremity Color Hemosiderin -Hair Growth on Legs No -Hair Growth on Toes No -Temperature of Extremity Warm -Capillary Refill Less than 3 Seconds -Dependent Rubor No -Blanched when Elevated No -Lipodermatosclerosis No -Other Deformity No -Prior Foot Ulcer No -Charcot Joint No -Prior Amputation No -Thick No -Discolored No -Deformed No -Improper Length & Hygeine No Neuropathy Assessment Feet - Top Side and Bottom <Entered> (a) Communication Assessment Preferred language Montenegrin Shoe Clerk Required No Able to Read Yes Able to Write Yes Communication Tools None Caregiver Communication Skills No Impairment Impairment Right Hearing Abillity Use of Hearing Aid Left Hearing Abillity Use of Hearing Aid Visual Assistive Devices None Teaching Assessment Preferences Verbal,Written, Audio/Visual, Demonstration Barriers to Learning None Readiness To Learn Excellent Willingness to Engage in Self Management High Activies Readiness to Engage in Self Management High Activities Anxiety Level Calm Cooperation Cooperative Perception Coherent Interest in Health Problem Asks Questions Education Importance Acknowledges Need Does Patient Smoke tobacco or other No substances Smoking Status Never smoker Is Patient Diabetic No Functional Assessment Recent Decline in Ability to Perform Denies Any Declines Assistive Device With Patient No Culture/Taoist/Level Vial Inspector And Tester Cultural/Taoist Needs that may affect No Treatment Plan Would you allow our hospital carry out clerk to No meet you for the purpose of spiritual/ emotional support? Level Vial Inspector And Tester to contact place of mandaeism No (a) 1 - - 2 - + 3 - + WC - Nurse 1 - General Ulcer Measurement Start: 04/29/23 08:11 Freq: Status: Active Protocol: Activity Type Activity Date Activity User E-sign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 Pancreatic cyst acute Peripheral nerve neurostimulator device in situ acute Polymyalgia rheumatica acute Sleep apnea treated with con tinuous positive airway pressure (CPAP) acute Spinal stenosis at L4-L5 level acute Traumatic open wound of right lower leg acute Chronic cough chronic Hypertension chronic Alzheimer's disease acute Dysphagia acute Esophageal stenosis acute GERD (gastroesophageal reflux disease) acute Hearing loss acute Hiatal hernia acute History of total bilateral knee replacement acute Hyperlipidemia acute Mild cognitive impairment ac [place] Pancreatic cyst acute Peripheral nerve neurostimulator device in situ acute Polymyalgia rheumatica acute Sleep apnea treated with con tinuous positive airway pressure (CPAP) acute Spinal stenosis at L4-L5 level acute Traumatic open wound of right lower leg acute Chronic cough chronic Hypertension chronic 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 [facility] Work Phone: Evaluation note* Diagnosis Onset Date Resolution Status Alzheimer's disease acute Dysphagia acute Esophageal stenosis acute GERD (gastroesophageal reflux disease) acute Hearing loss acute Hiatal hernia acute History of total bilateral knee replacement acute Hyperlipidemia acute Mild cognitive impairment ac [place] Pancreatic cyst acute Peripheral nerve neurostimulator device in situ acute Polymyalgia rheumatica acute Sleep apnea treated with con tinuous positive airway pressure (CPAP) acute Spinal stenosis at L4-L5 level acute Traumatic open wound of right lower leg acute Chronic cough chronic Hypertension chronic Alzheimer's disease acute Dysphagia acute Esophageal stenosis acute GERD (gastroesophageal reflux disease) acute Hearing loss acute Hiatal hernia acute History of total bilateral knee replacement acute Hyperlipidemia acute Mild cognitive impairment ac [place] Pancreatic cyst acute Peripheral nerve neurostimulator device in situ acute Polymyalgia rheumatica acute Sleep apnea treated with con tinuous positive airway pressure (CPAP) acute Spinal stenosis at L4-L5 level acute Traumatic open wound of right lower leg acute Chronic cough chronic Hypertension chronic 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 Acute maxillary sinusitis, unspecified acute [facility] Work Phone: Evaluation note* Diagnosis Onset Date Resolution Status Acute maxillary sinusitis, unspecified acute GERD (gastroesophageal reflux disease) acute Mild cognitive impairment ac [place] Nausea & vomiting acute Polymyalgia rheumatica acute Sleep apnea treated with con tinuous positive airway pressure (CPAP) acute Vertigo acute [facility] Work Phone: Evaluation note* Diagnosis Onset Date Resolution Status Acute maxillary sinusitis, unspecified acute GERD (gastroesophageal reflux disease) acute Mild cognitive impairment ac [place] Polymyalgia rheumatica acute Sleep apnea treated with con tinuous positive airway pressure (CPAP) acute Nausea & vomiting resolved Vertigo resolved [facility] Work Phone: Evaluation note* Diagnosis Onset Date Resolution Status Acute maxillary sinusitis, unspecified acute GERD (gastroesophageal reflux disease) acute Mild cognitive impairment ac [place] Polymyalgia rheumatica acute Sleep apnea treated with con tinuous positive airway pressure (CPAP) acute Nausea & vomiting resolved Vertigo resolved Carotid artery calcification acute Hyperlipidemia acute Rheumatic fever acute [facility] Work Phone: Evaluation note* Diagnosis Encounter for adjustment and management of neurostimulator- [facility] Diagnosis Failed back syndrome- Primary Other unspecified back disorder Lumbar radiculopathy Thoracic or lumbosacral neuritis or radiculitis, unspecified [facility]* Diagnosis Failed back syndrome- Primary Other unspecified back disorder Lumbar radiculopathy Thoracic or lumbosacral neuritis or radiculitis, unspecified [facility]* Diagnosis Malfunction of spinal cord stimulator, initial encounter ([facility])- Primary Scoliosis of lumbar spine, unspecified scoliosis type Lumbar spondylosis Lumbosacral spondylosis without myelopathy Polymyalgia rheumatica (HCC) Polymyalgia rheumatica [facility]* Diagnosis Malfunction of spinal cord stimulator- Primary Preop examination- Primary Unspecified pre-operative examination Pre-op testing Unspecified pre-operative examination Malfunction of spinal cord stimulator, initial encounter DEMOND (obstructive sleep apnea) Obstructive sleep apnea (adult) (pediatric) Hypertension, unspecified type Hyperlipidemia, unspecified hyperlipidemia type Gastroesophageal reflux disease, unspecified whether esophagitis present Malfunction of spinal cord stimulator, initial encounter- Primary Malfunction of spinal cord stimulator, initial encounter [facility]* Diagnosis Acute post-operative pain Malfunction of spinal cord stimulator, subsequent encounter Preop examination- Primary Unspecified pre-operative examination Pre-op testing Unspecified pre-operative examination Malfunction of spinal cord stimulator, initial encounter DEMOND (obstructive sleep apnea) Obstructive sleep apnea (adult) (pediatric) Hypertension, unspecified type Hyperlipidemia, unspecified hyperlipidemia type Gastroesophageal reflux disease, unspecified whether esophagitis present [facility] Diagnosis Preop examination- Primary Unspecified pre-operative examination Pre-op testing Unspecified pre-operative examination Malfunction of spinal cord stimulator, initial encounter DEMOND (obstructive sleep apnea) Obstructive sleep apnea (adult) (pediatric) Hypertension, unspecified type Hyperlipidemia, unspecified hyperlipidemia type Gastroesophageal reflux disease, unspecified whether esophagitis present Failed back syndrome- Primary Other unspecified back disorder [facility] Diagnosis Preop examination- Primary Unspecified pre-operative examination Pre-op testing Unspecified pre-operative examination Malfunction of spinal cord stimulator, initial encounter DEMOND (obstructive sleep apnea) Obstructive sleep apnea (adult) (pediatric) Hypertension, unspecified type Hyperlipidemia, unspecified hyperlipidemia type Gastroesophageal reflux disease, unspecified whether esophagitis present Erythema- Primary Unspecified erythematous condition Status post lumbar surgery Other postprocedural status [facility] Diagnosis Preop examination- Primary Unspecified pre-operative examination Pre-op testing Unspecified pre-operative examination Malfunction of spinal cord stimulator, initial encounter DEMOND (obstructive sleep apnea) Obstructive sleep apnea (adult) (pediatric) Hypertension, unspecified type Hyperlipidemia, unspecified hyperlipidemia type Gastroesophageal reflux disease, unspecified whether esophagitis present Failed back syndrome- Primary Other unspecified back disorder [facility] Diagnosis Preop examination- Primary Unspecified pre-operative examination Pre-op testing Unspecified pre-operative examination Malfunction of spinal cord stimulator, initial encounter DEMOND (obstructive sleep apnea) Obstructive sleep apnea (adult) (pediatric) Hypertension, unspecified type Hyperlipidemia, unspecified hyperlipidemia type Gastroesophageal reflux disease, unspecified whether esophagitis present Status post lumbar surgery- Primary Other postprocedural status Status post insertion of spinal cord stimulator [facility] Diagnosis Preop examination- Primary Unspecified pre-operative examination Pre-op testing Unspecified pre-operative examination Malfunction of spinal cord stimulator, initial encounter DEMOND (obstructive sleep apnea) Obstructive sleep apnea (adult) (pediatric) Hypertension, unspecified type Hyperlipidemia, unspecified hyperlipidemia type Gastroesophageal reflux disease, unspecified whether esophagitis present Failed back syndrome- Primary Other unspecified back disorder Lumbar foraminal stenosis [facility] Author Mitra Martinez [facility] November 02, 2023 9:43am Note Date/Time November 02, 2023 9 :30am [facility] Medical Records Department [address] [place] [address] H&P Exam - Hospitalist 11/02/23 0928 MR#: [id number] Acct: [id number] Name: TAMRA GUZMAN Rep #:[id number] : 1955 68 From: Mitra Martinez MD PCP: Dr. Mike Aburto MD Status:ADM I NO Location: [facility] [place] [id number] HPI - General General Date of Admission: 11/02/23 Date of Service: 11/02/23 Chief Complaint: Vertigo HPI Narrative TAMRA GUZMAN, is a 68-year-old male history of cochlear implant, GERD, PMR, mild cognitive impairment, sleep apnea, hypertension, presented to [facility] 11/02/2023 with vertigo, nausea, vomiting with a true spinningsensation that causes nausea and vomiting. Worsened when bending over or turning head. Has not had this in the past. In the ED symptoms concerning for BPPV, given meclizine and Valium with some improvement however patient still unsteady and unable to ambulate and high fall risk so hospitalist contacted for admission. Patient seen at bedside with , symptoms started on Friday and are intermittent, he had observed his eyes jumping to the right during one of thesymptoms and reports that symptoms will come on suddenly if he bends over or suddenly turns his head, has sudden movements but just sitting there at this time he is not having symptoms. Has had several falls associated with the symptoms. Denies any cough, nasal congestion, sore throat, fevers or any other infectious symptoms. Has no numbness, weakness, tingling or other neurologic symptoms. Denies any recent medication changes, had a cochlear implant put in but that was back in July and had not had the symptoms until Friday. [facility] Medical History (Updated 11/02/23 @ 05:[address] Arik Cade MD) Acute maxillary sinusitis, unspecified Alzheimer's disease Bilateral sensorineural hearing loss Chronic cough Cochlear implant in place Dysphagia Esophageal stenosis GERD (gastroesophageal reflux disease) Hearing loss Hereditary hearing loss Hiatal hernia Hyperlipidemia Hypertension Mild cognitive impairment Non-pressure chronic ulcer of right calf with fat layer exposed Pancreatic cyst Peripheral nerve neurostimulator device in situ Polymyalgia rheumatica Sleep apnea treated with continuous positive airway pressure (CPAP) Spinal stenosis at L4-L5 level Traumatic open wound of right lower leg Home Medications amlodipine 5 mg tablet 5 mg PO DAILY 05/27/20 [History Last Taken 05/27/20] prednisone 1 mg tablet 5 mg PO DAILY 05/27/20 [History Last Taken 04/29/23] cholecalciferol (vitamin D3) 25 mcg (1,000 unit) capsule 25 mcg PO DAILY 10/27/23 [History Last Taken Unknown] cyanocobalamin (vitamin B-12) 1,000 mcg capsule 1,000 mcg PO DAILY 10/27/23 [History Last Taken Unknown] donepezil 5 mg tablet 5 mg PO QHS 10/27/23 [History Last Taken Unknown] famotidine 40 mg tablet 40 mg PO DAILY 10/27/23 [History Last Taken Unknown] memantine 10 mg tablet 10 mg PO BID 10/27/23 [History Last Taken Unknown] meclizine 25 mg tablet 25 mg PO 4X/DAY PRN PRN Dizziness #20 tabs 11/02/23 [Rx Last Taken Unknown] Allergy/AdvReac Type Severity Reaction Status Date / Time No Known Allergies Allergy Verified 10/27/23 15:59 Surgical History (Updated 11/02/23 @ 05:[address] Arik Cade MD) History of cochlear implant History of total bilateral knee replacement Social History Smoking Status: Never smoker ROS ROS Narrative General: Denies fever/chills HENT: Denies headache, denies stuffy nose, denies sore throat EYES: Reports vision only changes when he is having the episodes and his eyes are jerking Resp: Denies cough, denies shortness of breath Cardiac: Denies chest pain GI: Denies abdominal pain, denies changes in bowel, denies nausea/vomiting : Denies changes in urination Extremity: Denies swelling MSK: Denies weakness Neuro: Denies any numbness/tingling, spinning sensation when he bends over or moves in certain positions Heme: Denies any bleeding or bruising Skin: Denies rashes Psychiatric: No complaints voiced Vital Signs Vital Signs Vital Signs: 11/02/23 05:27 11/02/23 05:30 11/02/23 05:34 Temperature 98.1 F Temperature Source Temporal Pulse Rate 87 Respiratory Rate 19 H Respiratory Effort Normal Respiratory Pattern Normal Blood Pressure 182/120 H 149/99 H Blood Pressure Mean 140 115 Pulse Ox 99 Oxygen Delivery Method Room Air 11/02/23 06:39 11/02/23 09:00 Temperature Temperature Source Pulse Rate 67 Respiratory Rate 14 20 H Respiratory Effort Respiratory Pattern Blood Pressure 133/84 H Blood Pressure Mean 100 Pulse Ox 94 Oxygen Delivery Method Room Air Weight Weight: 89.9 kg Body Mass Index (BMI) 26.9 Physical Exam Narrative General: Alert, oriented, no apparent distress HEENT: Atraumatic, normocephalic Eyes: Anicteric, normal conjunctiva, extraocular movements intact, pupils equal Neck: Supple Respiratory: Clear to auscultation bilaterally, normal respiratory effort Cardiovascular: Regular rate and rhythm GI: Soft, nontender, nondistended Extremities: No edema Musculoskeletal: Strength 5 out of 5 in right upper extremity, 5 out of 5 left upper extremity, 5 out of 5 right lower extremity, 5 out of 5 left lower extremity Neuro: No overt focal neurological deficits, cranial nerves II through XII intact, [id number] without significant difficulty bilaterally Skin: No rashes appreciated Psych: Cooperative Results Lab / Micro Data 11/02/23 05:30 11/02/23 05:30 Labs: Laboratory Results - last 24 hr 11/02/23 05:30: WBC 7.0, RBC 5.25, Hgb 15.0, Hct 45.4, MCV 86.5, MCH 28.6, MCHC 33.0, RDW Std Deviation 42.6, RDW Coeff of Collin 13.4, Plt Count 189, MPV 9.7, Immature Gran % (Auto) 0.400, Neut % (Auto) 60.5, Lymph % (Auto) 27.7, [place] % (Auto) 8.4, Eos % (Auto) 2.6, Baso % (Auto) 0.4, Absolute Neuts (auto) 4.3, Absolute Lymphs (auto) 1.95, Nucleated RBC % 0, Sodium 140, Potassium 3.5, Chloride 107, Carbon Dioxide 25.0, Anion Gap 8, BUN 16, Creatinine 0.94, Estim Creat Clear Calc 80.26, Est GFR (MDRD) Af Amer 103, Est GFR (MDRD) Non-Af 85, BUN/Creatinine Ratio 17.1, Glucose 128 H, Calcium 8.9 11/02/23 05:32: POC Glucose 114 H Imagaing Radiology Impression Brain CT 11/02/23 05:43 IMPRESSION: 1. Mild chronic involutional changes of the brain. 2. No demonstrated acute intracranial process. 3. Status post right cochlear implant. 4. Opacification of numerous small right mastoid air cells, of indeterminate chronicity. Electronically Signed: Shayne Brady MD at 6:22 EST Reading Location ID and State: [facility] / [place] , Service support , Assessment & Plan Assessment/Plan (1) Vertigo: (2) Sleep apnea treated with continuous positive airway pressure (CPAP): (3) Polymyalgia rheumatica: (4) Mild cognitive impairment: (5) GERD (gastroesophageal reflux disease): PLAN: Plan #Verigo -Suspect BPPV -Neuroexam normal and symptoms classic for this, PT/OT, will likely need vestibular rehab if not proving -Zofran and meclizine as needed, will also gently hydrate -No infectious symptoms or concern for vestibular neuritis at this time -CT head with mild chronic changes and opacification of small right mastoid air cells of indeterminate chronicity -Given normal neuroexam and his symptoms do not feel he needs urgent MRI at thistime, if symptoms change or do not improve could always consider this and/or neurology consult however suspect patient will continue to improve and will needshort stay in the hospital -Fall precautions #GERD -Continue famotidine # Hearing loss with cochlear implant -Noted # DEMOND -CPAP nightly # MCI -Will continue donepezil and memantine at this time # PMR -Continue low-dose prednisone #DVT ppx: SCDs Mitra Martinez MD Time spent in the patient's overall evaluation,decision-making process, review of diagnostic data, adjustment of management, discussion with other providers, nursing nursing and ancillary staff involved in patient's care documentation, 57minutes Charges/Coding Visit Charges Inpatient E&M: 50931 Init Hosp L2 11/02/23 0943 <Electronically signed by Mitra Martinez MD> Cosigner Signature (if applicable): CC: Dr. Mitra Martinez MD; Dr. Mike Aburto MD~ Signed [facility] Work Phone: [employer] for referral (narrative)No reason for referral information availableW[facility] Work Phone: [employer] for visit Narrative* Auth/Cert (Routine) Specialty Diagnoses / Procedures Referred By Contac t Referred To Contact Diagnoses Malfunction of spinal cord stimulator, initial encounter Malfunction of spinal cord stimulator, initial encounter [T85.192A] Procedures MS INSJ/RPLCMT SPINAL NPG/RCVR POCKET CRTJ&CONNJ MS BUSH FACETECTOMY & FORAMOTOMY 1 VRT SGM THORACIC MS BUSH FACETECTOMY&FORAMOT 1 VRT SGM EA ADDL SGM MS REVJ INCL RPLCMT NSTIM ELTRD PLT/PDLE INCL FLUOR Andrew Guzman MD [address] [facility] [place] [address] Phone: tel: fax: Referral ID Status Reason Start Date Expiration Date Visits Re quested Visits Authorized [id number] 10/22/2024 1 1 [facility] Summary Purpose Family History No Family History Records FoundNo Family History Records FoundNo Family History Records FoundNo Family History Records FoundNo Family History Records FoundNo Family History Records Found Advance Directives No Advanced Directives Records Found Advance Directive Response Recorded Date/ Time Living Will No May 27 0 9:01pm Power of Hobbing Machine Operator No May 27 9:01pm Advance Directive Response Recorded Date/ Time Living Will No May 27 0 8:01pm Power of Hobbing Machine Operator No May 27 8:01pm Advance Directive Response Recorded Date/ Time Name of Medical Power of Hobbing Machine Operator Nely Urrutia karolina November 02, 2023 5:35am Living Will Yes November 02 5:35am Power of Hobbing Machine Operator Yes November 02, 2023 5:35am Advance Directive Response Recorded Date/ Time Name of Medical Power of Hobbing Machine Operator Nely Urrutia n - November 02, 2023 11:07am Living Will Yes November 02 11:07am Power of Hobbing Machine Operator Yes November 02, 2023 11:07am Date Activated Date Inactivated Comments 11/18/2024 3:37 PM 11/19/2024 5:58 PM Date Activated Date Inactivated Comments 11/18/2024 3:37 PM 11/19/2024 5:58 PM Chief Complaint and Reason for Visit Chief Complaint GERD *12MM* PANCREATIC MASS Chief Complaint GERD *12MM* PANCREATIC MASS WOUND Reason for Visit Alzheimer's disease Dysphagia Esophageal stenosis GERD (gastroesophageal reflux disease) Hearing loss Hiatal hernia History of total bilateral knee replacement Hyperlipidemia Mild cognitive impairment Pancreatic cyst Peripheral nerve neurostimulator device in situ Polymyalgia rheumatica Sleep apnea treated with continuous positive airway pressure (CPAP) Spinal stenosis at L4-L5 level Traumatic open wound of right lower leg Chronic cough Hypertension Chief Complaint GERD *12MM* PANCREATIC MASS WOUND WOUND Reason for Visit Alzheimer's disease Dysphagia Esophageal stenosis GERD (gastroesophageal reflux disease) Hearing loss Hiatal hernia History of total bilateral knee replacement Hyperlipidemia Mild cognitive impairment Pancreatic cyst Peripheral nerve neurostimulator device in situ Polymyalgia rheumatica Sleep apnea treated with continuous positive airway pressure (CPAP) Spinal stenosis at L4-L5 level Traumatic open wound of right lower leg Chronic cough Hypertension Alzheimer's disease Dysphagia Esophageal stenosis GERD (gastroesophageal reflux disease) Hearing loss Hiatal hernia History of total bilateral knee replacement Hyperlipidemia Mild cognitive impairment Pancreatic cyst Peripheral nerve neurostimulator device in situ Polymyalgia rheumatica Sleep apnea treated with continuous positive airway pressure (CPAP) Spinal stenosis at L4-L5 level Traumatic open wound of right lower leg Chronic cough Hypertension Non-pressure chronic ulcer of right calf with fat layer exposed Chief Complaint WOUND WOUND FAX RESULTS TO [phone] Reason for Visit Alzheimer's disease Dysphagia Esophageal stenosis GERD (gastroesophageal reflux disease) Hearing loss Hiatal hernia History of total bilateral knee replacement Hyperlipidemia Mild cognitive impairment Pancreatic cyst Peripheral nerve neurostimulator device in situ Polymyalgia rheumatica Sleep apnea treated with continuous positive airway pressure (CPAP) Spinal stenosis at L4-L5 level Traumatic open wound of right lower leg Chronic cough Hypertension Alzheimer's disease Dysphagia Esophageal stenosis GERD (gastroesophageal reflux disease) Hearing loss Hiatal hernia History of total bilateral knee replacement Hyperlipidemia Mild cognitive impairment Pancreatic cyst Peripheral nerve neurostimulator device in situ Polymyalgia rheumatica Sleep apnea treated with continuous positive airway pressure (CPAP) Spinal stenosis at L4-L5 level Traumatic open wound of right lower leg Chronic cough Hypertension Non-pressure chronic ulcer of right calf with fat layer exposed Chief Complaint WOUND WOUND FAX RESULTS TO [phone] CONCERN FOR SINUS INFECTION Reason for Visit Alzheimer's disease Dysphagia Esophageal stenosis GERD (gastroesophageal reflux disease) Hearing loss Hiatal hernia History of total bilateral knee replacement Hyperlipidemia Mild cognitive impairment Pancreatic cyst Peripheral nerve neurostimulator device in situ Polymyalgia rheumatica Sleep apnea treated with continuous positive airway pressure (CPAP) Spinal stenosis at L4-L5 level Traumatic open wound of right lower leg Chronic cough Hypertension Alzheimer's disease Dysphagia Esophageal stenosis GERD (gastroesophageal reflux disease) Hearing loss Hiatal hernia History of total bilateral knee replacement Hyperlipidemia Mild cognitive impairment Pancreatic cyst Peripheral nerve neurostimulator device in situ Polymyalgia rheumatica Sleep apnea treated with continuous positive airway pressure (CPAP) Spinal stenosis at L4-L5 level Traumatic open wound of right lower leg Chronic cough Hypertension Non-pressure chronic ulcer of right calf with fat layer exposed Acute maxillary sinusitis, unspecified Chief Complaint FAX RESULTS TO 216.2 16 CONCERN FOR SINUS INFECTION INTRACTABLE VERTIGO/FALLS Reason for Visit Acute maxillary sinu sitis, unspecified GERD (gastroesophageal reflux disease) Mild cognitive impairment Nausea & vomiting Polymyalgia rheumatica Sleep apnea treated with continuous positive airway pressure (CPAP) Vertigo Chief Complaint FAX RESULTS TO 216.2 8216 CONCERN FOR SINUS INFECTION INTRACTABLE VERTIGO/FALLS INTRACTABLE VERTIGO/FALLS Reason for Visit Acute maxillary sinu sitis, unspecified GERD (gastroesophageal reflux disease) Mild cognitive impairment Nausea & vomiting Polymyalgia rheumatica Sleep apnea treated with continuous positive airway pressure (CPAP) Vertigo Chief Complaint FAX RESULTS TO 216.2 8216 CONCERN FOR SINUS INFECTION INTRACTABLE VERTIGO/FALLS INTRACTABLE VERTIGO/FALLS Reason for Visit Acute maxillary sinu sitis, unspecified GERD (gastroesophageal reflux disease) Mild cognitive impairment Polymyalgia rheumatica Sleep apnea treated with continuous positive airway pressure (CPAP) Nausea & vomiting Vertigo Chief Complaint CONCERN FOR SINUS IN FECTION INTRACTABLE VERTIGO/FALLS INTRACTABLE VERTIGO/FALLS EST (SELF) ALZHEIMERS DISEASE Occlusion and stenosis of right carotid artery Amb Documentation Reason for Visit Acute maxillary sinu sitis, unspecified GERD (gastroesophageal reflux disease) Mild cognitive impairment Polymyalgia rheumatica Sleep apnea treated with continuous positive airway pressure (CPAP) Nausea & vomiting Vertigo Carotid artery calcification Hyperlipidemia Rheumatic fever Chief Complaint CONCERN FOR SINUS IN FECTION INTRACTABLE VERTIGO/FALLS INTRACTABLE VERTIGO/FALLS EST (SELF) ALZHEIMERS DISEASE Occlusion and stenosis of right carotid artery Amb Documentation E ORDERS Reason for Visit Acute maxillary sinu sitis, unspecified GERD (gastroesophageal reflux disease) Mild cognitive impairment Polymyalgia rheumatica Sleep apnea treated with continuous positive airway pressure (CPAP) Nausea & vomiting Vertigo Carotid artery calcification Hyperlipidemia Rheumatic fever Chief Complaint Admit Date ENCOUNTER FOR ADJUSTMENT OF STIMULATOR N ovember 2023 3:45pm MID-BACK PAIN NEURO DEFICIT September 6:50pm E-ORDER December 21, 2024 8:5 6am Chief Complaint Admit Date E-ORDER December 21, 2024 8:5 6am Additional Source Comments (unrecognized sect ion and content) No Status Records FoundNo Status Records FoundNo Status Records FoundNo Status Records FoundNo Status Records FoundNo Status Records Found INFORMATION SOURCE (unrecogn ized section and content) DATE CREATED AUTHOR 04/19/2023 [facility] DATE CREATED AUTHOR AUTHOR'S ORGANIZ ATION 12/11/2024 [facility] DATE CREATED AUTHOR AUTHOR'S ORGANIZ ATION 12/19/2024 [facility] DATE CREATED AUTHOR AUTHOR'S ORGANIZ ATION 01/30/2025 [facility] DATE CREATED AUTHOR AUTHOR'S ORGANIZ ATION 02/28/2025 [facility] DATE CREATED AUTHOR AUTHOR'S ORGANIZ ATION 03/21/2025 [facility] Care Teams (unrecognized sec tion and content) Team Status: Active Member Role Status Dates Dr. Mike Aburto MD Primary Care Provider Active Team Status: Inactive Member Role Status Dates Dr. Mike Aburto MD Primary Care Provi vasyl, Attending Provider, Referring Provider Active Team Status: Inactive Member Role Status Dates Dr. Mike Aburto MD Primary Care Provider, Attending Provider Active Team Status: Inactive Member Role Status Dates Dr. Mike Aburto MD Primary Care Provider, Referring Provider Active Dr. Roel Black MD Attending Provider Active Team Status: Inactive Member Role Status Dates Dr. Mike Aburto MD Primary Care Provider Active ASHOK CAMEJO Attending Provider, Referring Provider Active Team Status: Inactive Member Role Status Dates Dr. Mike Aburto MD Primary Care Provider, Referring Provider Active Sathya López PA, PA Attending Provider Active Team Status: Active Member Role Status Dates Dr. Mike Aburto MD Primary Care Provider Active Dr. Arik Cade MD Emergency Provider Active Dr. Mitra Martinez MD Admit Provider, Attending Provid er Active Team Status: Active Member Role Status Dates Dr. Mike Aburto MD Primary Care Provider Active Dr. Arik Cade MD Emergency Provider Active Dr. Mitra Martinez MD Admit Provider, Other Provider A ctive Dr. Von Park MD Attending Provider, Other Provid er Active Team Status: Inactive Member Role Status Dates Dr. Mike Aburto MD Primary Care Provider Active Dr. Arik Cade MD Emergency Provider Active Dr. Mitra Martinez MD Admit Provider, Other Provider A ctive Dr. Von Park MD Attending Provider Active Team Status: Inactive Member Role Status Dates Dr. Mike Aburto MD Primary Care Provider, Referring Provider Active Dr. Rogelio Preciado MD Attending Provider Active Team Status: Active Member Role Status Dates Dr. Mike Aburto MD Primary Care Provider Active Dr. Peng Ballesteros MD Attending Provider Active Team Status: Active Member Role Status Dates Dr. Mike Aburto MD Primary Care Provider Active Matthew Hernandez NP, LOGISTICS TECHNICIAN-C Attending Provider Active Team Status: Active Member Role Status Dates Dr. Mike Aburto MD Primary Care Provider Active Dr. Rogelio Preciado MD Attending Provider, Referring Provider Active Team Status: Inactive Member Role Status Dates Dr. Mike Aburto MD Primary Care Provider Active Dr. Rogelio Preciado MD Attending Provider, Referring Provider Active Clinical Dermatologist Relationship Specialty Start Date End Date Mike Aburto Chi, MD [address] [place] [address] PCP - General Geriatric Medicine 09/30/24 Clinical Dermatologist Relationship Specialty Start Date End Date Mike Aburto Chi, MD [address] [place] [address] [address] [id number] PCP - General Geriatric Medicine 09/30/24 Clinical Dermatologist Relationship Specialty Start Date End Date Mike Aburto Chi, MD [address] [place] [address] PCP - General Geriatric Medicine 09/30/24 Clinical Dermatologist Relationship Specialty Start Date End Date Mike Aburto Chi, MD [address] [place] [address] PCP - General Geriatric Medicine 09/30/24 Clinical Dermatologist Relationship Specialty Start Date End Date Mike Aburto Chi, MD [address] [place] [address] PCP - General Geriatric Medicine 09/30/24 Clinical Dermatologist Relationship Specialty Start Date End Date Mike Aburto Chi, MD [address] [place] [address] PCP - General Geriatric Medicine 09/30/24 Clinical Dermatologist Relationship Specialty Start Date End Date Mike Aburto Chi, MD [address] [place] [address] PCP - General Geriatric Medicine 09/30/24 Clinical Dermatologist Relationship Specialty Start Date End Date Mike Aburto Chi, MD [address] [place] [address] PCP - General Geriatric Medicine 09/30/24 Clinical Dermatologist Relationship Specialty Start Date End Date Mike Aburto Chi, MD [address] [place] [address] PCP - General Geriatric Medicine 09/30/24 Clinical Dermatologist Relationship Specialty Start Date End Date Mike Aburto Chi, MD [address] [place] [address] PCP - General Geriatric Medicine 09/30/24 Team Status: Inactive Member Role Status Dates Dr. Mike Aburto MD Primary Care Provider Active Start: September 03, 2024 End: September 03, 2024 Dr. Mike Aburto MD Attending Provider Active Start: September 03, 2024 End: September 03, 2024 Dr. Mike Aburto MD Referring Provider Active Start: September 03, 2024 End: September 03, 2024 Team Status: Inactive Member Role Status Dates Dr. Mike Aburto MD Primary Care Provider Active Start: October 05, 2024 End: October 05, 2024 Ahmet Frances PA-C Attending Provider Active S tart: October 05, 2024 End: October 05, 2024 Ahmet Frances PA-C Referring Provider Active S tart: October 05, 2024 End: October 05, 2024 Dr. Andrew Guzman MD Other Provider Active Sta rt: October 05, 2024 End: October 05, 2024 Team Status: Inactive Member Role Status Dates Dr. Mike Aburto MD Primary Care Provider Active Start: December 21, 2024 End: December 21, 2024 FLAQUITO Fulton Attending Provider Active Start: December 21, 2024 End: December 21, 2024 FLAQUITO Fulton Referring Provider Active Start: December 21, 2024 End: December 21, 2024 Clinical Dermatologist Relationship Specialty Start Date End Date Mike Aburto Chi, MD [address] [place] [id number] PCP - General Geriatric Medicine 09/30/24 Team Status: Inactive Member Role Status Dates Dr. Mike Aburto MD Primary Care Provider Active Start: March 14, 2025 End: March 14, 2025 Dr. Mike Aburto MD Attending Provider Active Start: March 14, 2025 End: March 14, 2025 Dr. Mike Aburto MD Referring Provider Active Start: March 14, 2025 End: March 14, 2025 Goals (unrecognized section and content) Goals may be documented in a n alternate sectionGoals may be documented in an alternate sectionGoals may be documented in an alternate sectionGoals may be documented in an alternate sectionGoals may be documented in an alternate sectionGoals may be documented in an alternate sectionGoals may be documented in an alternate sectionGoals may be documented in an alternate section Reason for Visit (unrecogniz ed section and content) Reason Comments Back Pain Encounter for adjust ment and management of neuro stimulator Specialty Diagnoses / Procedures Referred By Contac t Referred To Contact Neurosurgery Diagnoses Encounter for adjustment and management of neurostimulator Mike Aburto Chi, MD [address] [place] [address] Phone: tel: fax: Andrew Guzman MD [address] [place] [address] Phone: tel: fax: Referral ID Status Reason Start Date Expiration Date V isits Requested Visits Authorized [id number] Pending Review 09/13/2024 09/13/2025 1 1 Reason Comments Back Pain Encounter for adjust ment and management of neuro stimulator Specialty Diagnoses / Procedures Referred By Contac t Referred To Contact Neurosurgery Diagnoses Encounter for adjustment and management of neurostimulator Mike Aburto Chi, MD [address] [place] [address] Phone: tel: fax: Andrew Guzman MD [address] [address] Phone: tel: fax: Reason Comments Follow-up CT Scan Results Reason Comments Wound Check Reason Comments Post-op Patient reporting he has pain at bottom of spine Scheduled Active and Recently Administ ered Medications (unrecognized section and content) Medication Order 11/17/2024 11/18/2024 11/19/2024 amLODIPine (NORVASC) tablet 5 mg 5 mg, Oral, Every morning, First dose on Fri11/19/24 at 0900 0810 (Given - Provid er: Pat Dasilva RN) atorvastatin (LIPITOR) tablet 10 mg 10 mg, Oral, Nightly, First dose on Fabiola 11/18/24 at 2100 212 (Given - Provider: Christiana Boucher RN) bisacodyL (DULCOLAX) suppository 10 mg 10 mg, Rectal, Every 8 hours, First dose on Fabiola 11/18/24 at 1700, [] Until BM, then discontinue. 1700 (Not Given - Provider: Pat Dasilva RN - Reason: Patient/family refused) 0100 (Not Given - Provider: Christiana Boucher RN - Reason: Patient/family refused - Comment: pt refused d/t not eating all day, will try for BM tomorrow)0900 (Not Given - Provider: Pat Dasilva RN - Reason: Patient/family refused) ceFAZolin (ANCEF) IVPB 2 g (premix) (COMPLETED) 2,000 mg, Intravenous, at 100 mL/hr, Once, On Fabiola 11/18/24 at 0930, For 1 dose, Pre-Procedure, Administer prior to incision., Indication (PRE PROCEDURE): Neurology 1226 (Given - Provider: Brown Young CRNA) 1558 (Stopped - Provider: Pat Dasilva RN) ceFAZolin (ANCEF) IVPB 2 g (premix) (COMPLETED) 2,000 mg, Intravenous, at 100 mL/hr, Every 8 hours, First dose on Fabiola 11/18/24 at 2000, For 2 doses, Starting 8 hours after pre-procedure dose x 2 doses., Indication (POST PROCEDURE): Neurology 2121 (New Bag - Provider: Christiana Boucher RN)2152 (Stopped - Provider: Christiana Boucher RN) 0535 (New Bag - Provider: Christiana Boucher RN)1558 (Stopped - Provider: Pat Dasilva, JOYCE) donepeziL (ARICEPT) tablet 10 mg 10 mg, Oral, Every morning, First dose on Fri11/19/24 at 0900 0810 (Given - Provid er: Pat Dasilva RN) famotidine (PEPCID) tablet 40 mg 40 mg, Oral, Daily (in the evening), First dose on Fabiola 11/18/24 at 2000 2000 (Not Given - Provider: Christiana Boucher RN - Reason: Patient/family refused) ketorolac (TORADOL) injection 15 mg (COMPLETED) 15 mg, Intravenous, Once, On Fri11/19/24 at 1015, For 1 dose 1012 (Given - Provid er: Pat Dasilva RN) memantine (NAMENDA) tablet 10 mg 10 mg, Oral, 2 times daily, First dose on Fabiola 11/18/24 at 2100 2122 (Given - Provider: Christiana Boucher RN) 0810 (Given - Provider: Pat Dasilva RN) senna-docusate (SENNA-S) 8.6-50 mg per tablet 2 tablet 2 tablet, Oral, 2 times daily, First dose on Fabiola 11/18/24 at 2100, [] Hold for loose stools. Do Not Crush or Chew if administering orally due to bitter taste. May be crushed if given via tube. 2100 (Not Given - Provider: Christiana Boucher RN - Reason: Patient/family refused) 0810 (Given - Provider: Pat Dasilva RN) Continuous Medication Order 11/17/2024 11/18/2024 11/19/2024 sodium chloride 0.9% (NS) (CANCELED) 75 mL/hr, Intravenous, Continuous, Starting on Fabiola 11/18/24 at 0930, Pre-Procedure 1147 (New Bag - Provider: Brown Young CRNA)1253 (Stopped - Provider: Brown Young CRNA) 1400 (Stopped - Provider: Pat Dasilva RN) sodium chloride 0.9% (NS) 50 mL/hr, Intravenous, Continuous, Starting on Fabiola 11/18/24 at 1630 1618 (New Bag - Provider: Pat Dasilva RN)2122 (Paused - Provider: Christiana Boucher RN)2152 (Restarted - Provider: Christiana Boucher RN)2231 (Rate/Dose Verify - Provider: Christiana Boucher RN) 0140 (Rate/Dose Verify - Provider: Christiana Boucher RN)1400 (Stopped - Provider: Pat Dasilva RN) PRN Medication Order 11/17/2024 11/18/2024 11/19/2024 acetaminophen (TYLENOL) tablet 650 mg 650 mg, Oral, Every 4 hours PRN, mild pain, fever 100.4 F or greater, Starting on Fabiola 11/18/24 at 1536 bisacodyL (DULCOLAX) suppository 10 mg 10 mg, Rectal, Daily PRN, constipation, Starting on Fabiola 11/18/24 at 1536, Try oral meds first. [place] rectal route for when oral meds are ineffective, not tolerated, or not ordered. cyclobenzaprine (FLEXERIL) tablet 5 mg 5 mg, Oral, Every 8 hours PRN, muscle spasms, Starting on Fabiola 11/18/24 at 1536 1611 (Given - Provider: Pat Dasilva, JOYCE) 0808 (Given - Provider: Pat Dasilva RN) diphenhydrAMINE (BENADRYL) tablet 25 mg 25 mg, Oral, Every 4 hours PRN, itching, Starting on Fabiola 11/18/24 at 1536 lidocaine 1% (PF) (XYLOCAINE-MPF) 20 mL, BUPivacaine (PF) (MARCAINE) 0.5 % (5 mg/mL) 30 mL injection (CANCELED) As needed, Starting on Fabiola 11/18/24 at 1245, Intra-Procedure 1245 (Given - Provider: Andrew Guzman MD) magnesium hydroxide (MOM) 400 mg/5 mL suspension 2,400 mg 2,400 mg (30 mL), Oral, Daily PRN, constipation, constipation, Starting on Fabiola 11/18/24 at 1536 morphine injection 2-4 mg 2-4 mg, Intravenous, Every 3 hours PRN, moderate to severe pain, Starting on Fabiola 11/18/24 at 1536, [] Initiate with 2 mg IV every 3 hours prn moderate to severe pain. [] For unrelieved pain, may repeat 2 mg IV dose within 30 minutes of initial dose. [] If pain is RELIEVED after repeat dose, change to 4 mg IV every 3 hours prn moderate to severe pain. [] If pain is UNrelieved after repeat dose, or patient requires dose reduction, call physician. [] May use IV for breakthrough pain or if unable to tolerate oral route. naloxone (NARCAN) injection 0.1 mg(Linked Group 1) 0.1 mg, Intravenous, As needed, opioid reversal, For respiratory rate less than or equal to 8 per minute., Starting on Fabiola 11/18/24 at 1536, Mix nalOXone (NARCAN) 0.4 mg (1mL) with 9 mL of Normal Saline to total 10 mL. Administer 0.1 mg (2.5mL) IV Push every 2 minutes until respiratory rate is 10 or greater. naloxone (NARCAN) injection 0.4 mg(Linked Group 1) 0.4 mg, Intravenous, As needed, opioid reversal, patient is pulseless, breathless, and unresponsive, Starting on Fabiola 11/18/24 at 1536, Call a code first, then administer naloxone dose undiluted IV Push over 30 seconds. ondansetron (ZOFRAN) injection 4 mg 4 mg, Intravenous, Every 6 hours PRN, nausea, vomiting, Starting on Fabiola 11/18/24 at 1536 oxyCODONE-acetaminophen (PERCOCET) 5-325 mg per tablet 1-2 tablet 1-2 tablet, Oral, Every 4 hours PRN, moderate to severe pain, Starting on Fabiola 11/18/24 at 1536, [] Initiate with 1 tablet oral every 4 hours prn moderate to severe pain. [] For unrelieved pain, may repeat one tablet oral dose within 60 minutes of initial dose. [] If pain is RELIEVED after repeat dose, change to two tablets of 5/325 mg oral every 4 hours prn moderate to severe pain. [] If pain is UNrelieved after repeat dose, or patient requires dose reduction, call physician. 1612 (Given - Provider: Pat Dasilva RN) 0808 (Given - Provider: Pat Dasilva RN) sodium chloride (NS) 0.9 % irrigation solution (CANCELED) As needed, Starting on Fabiola 11/18/24 at 1353, Intra-Procedure 1353 (Given - Provider: Andrew Guzman MD) thrombin (recombinant) 10,000 Units, gelatin adsorbable (GELFOAM) 100 cm 1 each topical (CANCELED) As needed, Starting on Fabiola 11/18/24 at 1353, Intra-Procedure 1353 (Given - Provider: Andrew Guzman MD) traZODone (DESYREL) tablet 50 mg 50 mg, Oral, Nightly PRN, sleep, Starting on Fabiola 11/18/24 at 1536, [] May repeat once in 30 minutes if still awake. Linked Groups Order Group 1: naloxone (NARCAN) injection 0.1 mgJump to med 0.1 mg, Intravenous, As needed, opioid reversal, For respiratory rate less than or equal to 8 per minute., Starting on Fabiola 11/18/24 at 1536, Mix nalOXone (NARCAN) 0.4 mg (1mL) with 9 mL of Normal Saline to total 10 mL. Administer 0.1 mg (2.5mL) IV Push every 2 minutes until respiratory rate is 10 or greater. And Notify physician (CANCELED) STAT, Until discontinued, Starting on Fabiola 11/18/24 at 1537, Until Specified, Respiratory rate less than: 8, For respiratory rate less than or equal to 8, notify physician and/or appropriate staff for additional orders. And naloxone (NARCAN) injection 0.4 mgJump to med 0.4 mg, Intravenous, As needed, opioid reversal, patient is pulseless, breathless, and unresponsive, Starting on Fabiola 11/18/24 at 1536, Call a code first, then administer naloxone dose undiluted IV Push over 30 seconds. FOR RECORDS PERTAINING TO PATIENTS WHO ARE OR HAVE BEEN ENROLLED IN A CHEMICAL DEPENDENCY/SUBSTANCEABUSE PROGRAM, SOME INFORMATION MAY BE OMITTED. This clinical summary was aggregated from multiple sources. Caution should be exercised in using it in the provision of clinical care. This summary normalizes information from multiple sources, and as a consequence, information in this document may materially change the coding, format and clinical context of patient data. In addition, data may be omitted in some cases. CLINICAL DECISIONS SHOULD BE BASED ON THE PRIMARY CLINICAL RECORDS. [facility]. provides no warranty or guarantee of the accuracy or completeness of information in this document.
[2025-03-30 23:07] LABS: Lyme IgG P18 Ab Absent (.); Lyme IgG P23 Ab Absent (.); Lyme IgG P28 Ab Absent (.); Lyme IgG P30 Ab Absent (.); Lyme IgG P39 Ab Absent (.); Lyme IgG P41 Ab Absent (.); Lyme IgG P45 Ab Absent (.); Lyme IgG P58 Ab Absent (.); Lyme IgG P66 Ab Absent (.); Lyme IgG P93 Ab Absent (.); Lyme IgG WB Interpretation Negative (Negative); Lyme IgM P23 Ab Absent (.); Lyme IgM P39 Ab Absent (.); Lyme IgM P41 Ab Absent (.); Lyme IgM WB Interpretation Negative (Negative)
== END | disposition home or self-care (01) ==
LOC: CT 12:10
PROVIDERS: PCP Family Medicine Geriatric Medicine; Referring Provider Family Medicine Geriatric Medicine; Visit Provider Family Medicine Geriatric Medicine
DX: R10.9 Unspecified abdominal pain (principal); W57.XXXA Bitten or stung by nonvenomous insect and other nonvenomous arthropods, initial encounter
CPT/HCPCS: 36415; 74176; 86617

== ENCOUNTER 2025-04-01 09:21 | Day surgery (SDC) | payer MEDICARE, OTHER, SELFPAY ==
--- NOTE | 2025-03-30 20:59 | PAT.ANE_ITS ---
Pre-Assessment Diagnosis/Proposed Procedure Planned Operative Procedure(s): (R) ESWL Anesthesia History Anesthesia History - home school coordinator: Anesthesia History - home school coordinator Hx Hospitalization Yes: NEUROSTIMULATOR 03/30/25 09:32 REPLACED Any Problems With Anesthesia No 03/30/25 09:32 Cholinesterase deficiency No 03/30/25 09:32 You/Your Family Experience No 03/30/25 09:32 fever (hyperthermia) with Relationship Recent Exposure to Contagious Disease Does patient have nerve Yes 03/30/25 09:32 stimulator Patient instructed to have device shut off --Does patient have Pacemaker or ICD? When Was Last Pacemaker Check QUESTION #4 FULL TEXT: You/Your Family Experience fever (hyperthermia) with Anesthesia Last Oral Intake Last Oral intake: Last Oral Intake NPO since Meds taken in AM with sips of water? Meds patient instructed to take am of surgery PONV PONV - home school coordinator: PONV - home school coordinator Female No 03/30/25 09:32 HX of Motion Sickness Yes 03/30/25 09:32 HX of N/V After Surgery Yes 03/30/25 09:32 Non-Smoker Yes 03/30/25 09:32 Duration of Surgery greater No 03/30/25 09:32 than 60 minutes Number of Risk Factors 3 03/30/25 09:32 PONV Score Moderate Risk 03/30/25 09:32 Height & Weight Height & Weight: Anesthesia: Height & Weight Height 6 ft 02/28/24 10:03 Respiratory Assessment Respiratory Assessment - home school coordinator: Respiratory Tract Infection Hx - home school coordinator Hx Respiratory Tract Infection No 03/30/25 09:32 STOP Sleep Apnea STOP Sleep Apnea - home school coordinator: STOP Sleep Apnea - home school coordinator Hx Hypertension No 03/30/25 09:32 Hx Sleep Apnea Yes 03/30/25 09:32 CPAP Yes 03/30/25 09:32 BIPAP No 03/30/25 09:32 Do you snore loudly (louder than talking or can be heard Do you often feel tired/ fatigued/ sleepy during daytime? Has anyone observed you stop breathing during sleep? STOP Results Positive 03/30/25 09:32 QUESTION #5 FULL TEXT : Do you snore loudly (louder than talking or can be heard through closed doors)? Tobacco Use History Tobacco Use History - home school coordinator: Tobacco Use History - home school coordinator Tobacco Use Smoking Status Never smoker 03/30/25 09:32 Hx Tobacco Use No 03/30/25 09:32 Years Smoking Packs Smoked per Day Smoking Cessation Date was within the last 15 years Hx Smoking Cessation Date Hx Smoking Cessation Counseling Hematologic Medial History Hematologic Hx - home school coordinator: Hematologic Medical Hx - bereavement program coordinator Hx of Blood Transfusion No 03/30/25 09:32 Hx of Transfusion in last 3 No 03/30/25 09:32 Months Date of Last Transfusion (if within last 3 months) Ever experience any problems No 03/30/25 09:32 with transfusion(s)? Specify any problems Hx of Preganancy in last 3 N/A 03/30/25 09:32 Months Nurse Filling Out Transfusion VCHRISTIN 03/30/25 09:32 & Questions: Date: 03/30/25 03/30/25 09:32 Time: 09:33 03/30/25 09:32 Patient unable to answer at this time (ie. confused, unrespo /Reproduction History /Reproductive History - home school coordinator: /Reproductive Hx- home school coordinator Hx Now No 03/30/25 09:32 Gestational Age (in weeks): EDC: Hx Hx Para Hx Section SAB No 03/30/25 09:32 [facility] Medical History (Updated 03/30/25 @ 09:31 by Debra Gutiérrez) Wears hearing aid Cancer History of steroid therapy Rheumatoid arthritis Arthritis Kidney stones High cholesterol Back pain History of IBS Gastric reflux Non-smoker CPAP (continuous positive airway pressure) dependence Sleep apnea History of stress test Cardiology follow-up encounter History of rheumatic fever Hereditary hearing loss Bilateral sensorineural hearing loss Acute maxillary sinusitis, unspecified Cochlear implant in place Non-pressure chronic ulcer of right calf with fat layer exposed Peripheral nerve neurostimulator device in situ Traumatic open wound of right lower leg Chronic cough Hypertension Hyperlipidemia Polymyalgia rheumatica Spinal stenosis at L4-L5 level Hearing loss Sleep apnea treated with continuous positive airway pressure (CPAP) Mild cognitive impairment Alzheimer's disease Dysphagia Hiatal hernia Esophageal stenosis Pancreatic cyst GERD (gastroesophageal reflux disease) Home Medications ?Medication ?Instructions ?Recorded ?Last Taken ?Type amlodipine 5 mg tablet 5 mg PO DAILY 05/27/2005/27 History prednisone 1 mg tablet 2 mg PO DAILY 05/27/2004/29 History famotidine 40 mg tablet 40 mg PO QHS 10/27/23 Unknow n History meclizine 25 mg tablet 25 mg PO 4X/DAY PRN PRN Dizz iness 11/02/23 Unknown Rx #20 tabs doxycycline hyclate 100 mg tablet 100 mg PO BID Unknown History hydroxychloroquine 200 mg tablet 200 mg PO BID 5 Unknown History loratadine 10 mg tablet (Claritin) 10 mg PO DAILY 03/13 06/06 Unknown History prednisone 10 mg tablet 10 mg PO .SEE DIRECTIONS Unknown History rosuvastatin 20 mg tablet 20 mg PO QHS 03/30/25 Unknow n History Allergy/AdvReac Type Severity Reaction Status Date / Time No Known Allergies Allergy Verified 03/30/25 09:12 Surgical History (Updated 03/30/25 @ 09:31 by Debra Gutiérrez) Hx of vasectomy Hx of rotator cuff surgery Hx of knee surgery History of cochlear implant History of total bilateral knee replacement Social History Smoking Status: Never smoker alcohol intake: never substance use type: does not use caffeine: No Audit: Pertinent Findings Pertinent Findings EKG Perinent findings: November 14, 2023. Sinus rhythm within normal limits. Consult pertinent findings: November 14, 2023. Dr. Preciado. 1. Carotid artery calcification?acute-calcifications in the right carotid artery noted on the CT scan. Plan carotid ultrasound. 2. Rheumatic fever?acute-diagnosed at age 4. Patient has a transient murmur at age 4 which resolved spontaneously. Additional pertinent findings: Carotid duplex. November 21, 2023. R ICA is less than 50%. LICA is less than 50%. Recommendation Anesthesia Recommendation Anesthesia recommendation: OPTIMIZED for anesthesia
[2025-04-01] VITALS (12 sets, daily range): BP systolic 126–159; BP diastolic 87–103; PULSE 49–65; RESP 16; TEMP 36.1–36.3; O2SAT 92–99; BMI 27.3
--- NOTE | 2025-04-01 09:30 | RAD_ITS ---
EXAM: XR Abdomen, 1 View CLINICAL INDICATION: PRE-OP TECHNIQUE: Frontal supine view of the abdomen/pelvis. COMPARISON: No relevant prior studies available. FINDINGS: GASTROINTESTINAL TRACT: Fecal retention in the colon consistent with constipation. No dilation. ORGANS: 5 mm calculus projecting over the right renal region. BONES/JOINTS: Unremarkable. No acute fracture. TUBES, LINES AND DEVICES: Nerve stimulator projecting over the left lower abdominal quadrant. RAD/Abd Inc Decub and/or Erect IMPRESSION: 1. Fecal retention in the colon consistent with constipation. 2. 5 mm calculus projecting over the right renal region. Reading Location: [id number]
[2025-04-01] MEDS: Lactated Ringers 1,000 ML 15 ML IV (09:58)
--- OUTSIDE RECORDS SUMMARY | 2025-04-01 10:10 | XMS RPT_ITS | CCD ---
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 Mike Aburto Chi Primary Care Provider Dr. Mike Aburto Chi Referring Provider FLAQUITO Rodrigues Attending Provider Dr. Arik Cade Emergency Provider Dr. Mitra Martinez Admit Provider Dr. Mitra Martinez Other Provider Dr. Von Park Attending Provider Unavailable Dr. Von Park Other Provider Unavailable Dr. Rogelio Preciado Attending Provider Dr. Peng Ballesteros Attending Provider Roof CROP SCOUT, CROP SCOUT-C Matthew Page Attending Provider Unavailable Primary Care Provider Unavailchava Aburto MD, Mike Underwood Primary Care Provider SYSTEM, PROVIDER NOT IN Referring Unavaila ble MIKE ABURTO CHI Primary Care Unavailable SYSTEM, PROVIDER NOT IN Attending Unavaila ble SYSTEM, PROVIDER NOT IN Referring Unavaila ble SYSTEM, PROVIDER NOT IN Attending Unavaila ble MIKE ABURTO CHI Primary Care Unavailable SYSTEM, PROVIDER NOT IN Referring Unavaila ble SYSTEM, PROVIDER NOT IN Attending Unavaila ble LAMONTE MIKE AFSHIN Primary Care Unavailable Dr. Mike Aburto MD, Chi Primary Care Provider Dr. Mike Aburto MD, Chi Attending Provider Dr. Mike Aburto MD, Chi Referring Provider Ahmet Frances PA-C Attending Provider hAmet Frances PA-C Referring Provider [phone] Thomas CAMARENA, Dr. Morales Other Provider [phone] Cathleen Perez Attending Provider [phone] Cathleen Perez Referring Provider [phone] LAMONTE, MIKE CHI Primary Care Unavailable CHOPKO, ANDREW HUBERTMYR Attending Unavail able WILBER BLAND Attending Unavailable LAMONTE, MIKE CHI Primary Care Unavailable TONI BOWEN Attending Unavailable LAMONTE, MIKE CHI Primary Care Unavailable LAMONTE, MIKE CHI Primary Care Unavailable ZULY GOOD Attending Unavailable FAIR, ROBBY VELASQUEZ Attending Unavailable LAMONTE, MIKE CHI Primary Care Unavailable LAMONTE, MIKE CHI Primary Care Unavailable LAMONTE, MIKE CHI Primary Care Unavailable LAMONTE, MIKE CHI Referring Unavailable LAMONTE, MIKE CHI Admitting Unavailable AHMET FRANCES Attending Unavailable FAIR, ROBBY VELASQUEZ Attending Unavailable LAMONTE, MIKE CHI Primary Care Unavailable LAMONTE, MIKE CHI Primary Care Unavailable CHOPKO, ANDREW FELIXR Attending Unavail able CHOPKO, ANDREW FELIXR Attending Unavail able CHOPKO, ANDREW PEÑAODYMYR Admitting Unavail able LAMONTE, MIKE CHI Primary Care Unavailable LAMONTE, MIKE CHI Primary Care Unavailable FAIR, ROBBY VELASQUEZ Attending Unavailable FAIR, ROBBY VELASQUEZ Referring Unavailable LAMONTE, MIKE CHI Primary Care Unavailable FAIR, ROBBY VELASQUEZ Attending Unavailable FAIR, ROBBY VELASQUEZ Referring Unavailable CHOPKO, ANDREW PEÑAODYMYR Attending Unavail able CHOPKO, ANDREWATTI PEÑAODYMYR Referring Unavail able LAMONTE, MIKE CHI Primary Care Unavailable LAMONTE, MIKE CHI Primary Care Unavailable THRUSH, KIKE JOSHI Attending Unavailable CHOPKO, ANDREW PEÑAODYMYR Admitting Unavail able CHOPKO, ANDREW GASPARMYR Attending Unavail able LAMONTE, MIKE CHI Primary Care Unavailable CHOPKO, ANDREW WOLODYMYR Referring Unavail able THRUSH, KIKE JOSHI Attending Unavailable CHOPKO, ANDREW WOLODYMYR Admitting Unavail able LAMONTE, MIKE CHI Primary Care Unavailable CHOPKO, ANDREW WOLODYMYR Admitting Unavail able LAMONTE, MIKE CHI Primary Care Unavailable CHOPKO, ANDREW GASPARMYR Attending Unavail able Lamonte , Dr. Mike Underwood Primary Care Provider Dr. Mike Aburto MD, Chi Attending Provider [phone] Lamonte CAMARENA, Dr. Mike Chi Referring Provider Lamonte, Mike Chi Primary Care Unavailable Neeraj Mcnulty Attending Unavailable Cathleen Perez Attending Unavail able Cathleen Perez Referring Unavail able Lamonte, Mike Chi Primary Care Unavailable Lamonte, Mike Chi Attending Unavailable Lamonte, Mike Chi Referring Unavailable Lamonte, Mike Chi Primary Care Unavailable Rogelio Preciado Consulting Unavailable MAILEALBERT Attending Unavailable Lamonte, Mike Chi Primary Care Unavailable Lamonte, Mike Chi Primary Care Unavailable Peng Ballesteros Attending Unavailable Lamonte, Mike Chi Referring Unavailable Lamonte, Mike Chi Primary Care Unavailable AvaniChris awan Attending Unavailable AvaniRenans Referring Unavailable Lamonte, Mike Chi Primary Care Unavailable Lamonte, Mike Chi Attending Unavailable Lamonte, Mike Chi Referring Unavailable Lamonte, Mike Chi Primary Care Unavailable Lamonte, Mike Chi Attending Unavailable Lamonte, Mike Chi Primary Care Unavailable Lamonte, Mike Chi Attending Unavailable Lamonte, Mike Chi Referring Unavailable Andrew Guzman Consulting Unavailable Ahmet Frances Attending Unavailable Ahmet Frances Referring Unavailable Lamonte, Mike Chi Primary Care Unavailable Lamonte, Mike Chi Attending Unavailable Lamonte, Mike Chi Primary Care Unavailable Lamonte, Mike Chi Referring Unavailable Lamonte, Mike Chi Attending Unavailable Lamonte, Mike Chi Primary Care Unavailable Lamonte, Mike Chi Attending Unavailable Lamonte, Mike Chi Referring Unavailable Lamonte, Mike Chi Primary Care Unavailable Lamonte, Mike Chi Attending Unavailable Lamonte, Mike Chi Referring Unavailable Lamonte, Mike Chi Primary Care Unavailable Allergies Allergy Classification Reported Allergen(s) Allergy Type Date of Onset Reaction(s) Facility (18 sources) Bee pollen; Translations: [BEE POLLEN] Drug Allergy 4 Unknown [facility] (1 source) Pollen; Translations: [POLLEN EXTRACTS] Propensity to adverse reactions to drug (disorder) 5 [facility] Three Repository Medications Current Medications Medication Drug Class(es) Dates Sig (Normalized) Sig (Original) acetaminophen 325 mg / oxyCODONE hydrochloride 5 mg oral tablet (18 sources) Opioid Agonist Start: 11-19-2024 End: 11-26-2024 [...] HOURS NEEDED as needed for Pain 12 3 May 27, 2020 May 29, 2020 12:00am May 30, 2020 12:02am Start: 05-27-2020 End: 05-30-2020 take 1 tablet by mouth every six hours as needed Oxycodone-Acetaminophen Discontinued 1 TABLET PO EVERY 6 HOURS NEEDED 12 3 May 27, 2020 May 29, 2020 11:02pm [...] spasms, Starting on Fabiola 11/18/24 at 1536 doxycycline hyclate 100 mg oral tablet (1 source) Tetracycline-class Drug Start: 03-30-2025 take 1 tablet by mouth twice daily Doxycycline Hyclate 100 mg tablet Active 100 mg PO TWICE A DAY March 30, 2025 12:00am hydroxychloroquine sulfate 200 mg oral tablet (12 sources) Antimalarial, Antirheumatic Agent Start: 03-30-2025 take 1 tablet by mouth twice daily Hydroxychloroquine 200 mg tablet Active 200 mg PO TWICE A DAY March 30, 2025 12:00am take 1 tablet by mouth twice leia ly hydroxychloroquine (PLAQUENIL) 200 mg tablet Take 1 (one) tablet (200 mg total) by mouth 2 (two) times a day . Active loratadine 10 mg oral tablet (1 source) Start: 03-30-2025 take 1 tablet by mouth once daily Loratadine (Claritin) 10 mg tablet Active 10 mg PO DAILY March 30, 2025 12:00am meclizine hydrochloride 25 mg oral tablet (15 sources) Antiemetic Start: 11-02-2023 End: 11-19-2024 take 1 tablet by mouth four times daily as needed for dizziness Meclizine 25 mg tablet Active 25 mg PO 4 TIMES DAILY NEEDED as needed for Dizziness November 02, 2023 1:00am predniSONE 10 mg oral tablet (20 sources) Start: 03-30-2025 Prednisone 10 mg tablet Active 10 mg PO .SEE DIRECTIONS March 30, 2025 12:00am Start: 09-28-2020 take 1 tablet by [facility] once daily in the morning predniSONE 2 mg TbEC Take 1 (one) tablet (2 mg total) by mouth every morning . 09/28/2020 Active Start: 09-28-2020 take 4 tablets by mo [facility] once daily predniSONE (DELTASONE) 1 MG tablet Take 4 (four) tablets (4 mg total) by mouth daily . 09/28/2020 Active Start: 05-27-2020 take 2 tablets by mo [facility] once daily Prednisone 1 MG tablet Active 2 mg PO DAILY May 27, 2020 12:00am Start: 05-27-2020 take 5 tablets by mo ut once daily Prednisone 1 MG tablet Active [...] sources) HMG-CoA Reductase Inhibitor Start: 11-14-2023 End: 03-30-2025 take 1 tablet by mouth at bedtime Rosuvastatin 20 mg tablet Active 20 mg PO AT BEDTIME March 30, 2025 12:00am sulfamethoxazole 800 mg / trimethoprim 160 mg oral tablet (3 sources) Dihydrofolate Reductase Inhibitor Antibacterial, Sulfonamide Antimicrobial Start: 12-02-2024 End: 12-13-2024 take 1 tablet by mouth twice daily sulfamethoxazole- trimethoprim (BACTRIM DS,SEPTRA DS) 800-160 mg per tablet Take 1 (one) tablet by mouth 2 (two) times a day for 5 days . 10 tablet 12/08/2024 12/13/2024 Active Completed/Discontinued Medications Medication Drug Class(es) Dates Sig (Normalized) Sig (Original) acetaminophen 325 mg oral tablet (1 source) Start: 11-18-2024 End: 11-19-2024 take 1 tablet by mouth every four hours as needed for pain amoxicillin 500 mg oral capsule (10 sources) Penicillin-class Antibacterial Start: 08-13-2023 End: 08-23-2023 [...] mg / clavulanate 125 mg oral tablet (3 sources) Penicillin-class Antibacterial Start: 02-28-2024 End: 03-09-2024 Amoxicillin-Pot Clavulanate (Augmentin) 500-125 mg tablet Discontinued 1 {tbl} PO TWICE A DAY 01 08February 28, 2024 12:00am March 08, 2024 12:00am March 09, 2024 12:04am 24 hr amphetamine aspartate 7.5 mg / amphetamine sulfate 7.5 mg / dextroamphetamine saccharate 7.5 mg / dextroamphetamine sulfate 7.5 mg extended release oral capsule (14 sources) Central Nervous System Stimulant Start: 05-27-2020 [...] at Discharge) cholecalciferol 0.025 mg oral capsule (9 sources) Vitamin D Start: 10-27-2023 End: 11-14-2023 [...] needed docusate sodium 50 mg / sennosides, chcf 8.6 mg oral tablet (1 source) Start: 11-18-2024 End: 11-19-2024 take 2 tablets by mouth twice daily 2 tablet, Oral, 2 times daily, First dose on Fri11/18/24 at 2100, [] Hold for loose stools. Do Not Crush or Chew if administering orally due to bitter taste. May be crushed if given via tube. donepezil hydrochloride 5 mg oral tablet (20 sources) Start: 11-19-2024 End: 11-19-2024 take 10 mg by mouth once daily in the morning 10 mg, Oral, Every morning, First dose on Fri11/19/24 at 0900 Start: 10-27-2023 End: 11-02-2023 take 1 tablet by mouth once daily Donepezil 10 mg tablet Discontinued 10 mg PO DAILY October 27, 2023 1:00am November 02, 2023 6:34am Start: 10-27-2023 End: 03-30-2025 take 1 tablet by mouth at bedtime Donepezil 5 mg tablet Discontinued 5 mg PO AT BEDTIME October 27, 2023 1:00am March 30, 2025 9:15am famotidine 20 mg oral tablet (20 sources) Histamine-2 Receptor Antagonist Start: 11-18-2024 End: 11-19-2024 Start: 04-04-2023 take 1 tablet by herman th at bedtime Famotidine 40 mg tablet Active 40 mg PO AT BEDTIME October 27, 2023 1:00am 24 hr galantamine hydrobromide 8 mg extended release oral capsule (9 sources) Start: 10-27-2023 End: 11-02-2023 take 1 [...] suspension (1 source) Start: 11-18-2024 End: 11-19-2024 memantine hydrochloride 10 mg oral tablet (20 sources) X-tqmfpd-I-aspar lloyd Receptor Antagonist Start: 10-27-2023 End: 03-30-2025 take 1 tablet by mouth twice daily Memantine 10 mg tablet Discontinued 10 mg PO TWICE A DAY October 27, 2023 1:00am March 30, 2025 9:15am 1 ml morphine sulfate 2 mg/ml cartridge (1 source) Opioid Agonist Start: 11-18-2024 End: 11-19-2024 take 2-4 mg intravenously every three hours as needed naloxone (NARCAN) injection 0.1 mg (1 source) Start: 11-18-2024 End: 11-19-2024 naloxone (NARCAN) injection 0.1 mg 2 ml ondansetron 2 mg/ml injection (15 sources) Serotonin-3 Receptor Antagonist Start: 11-18-2024 End: [...] April 29, 2023 8:58am traZODone hydrochloride 50 mg oral tablet (1 source) Serotonin Reuptake Inhibitor Start: 11-18-2024 End: 11-19-2024 vitamin b12 1 mg oral capsule (15 sources) Vitamin B12 Start: 10-27-2023 End: 03-30-2025 take 1 capsule by mouth once daily Cyanocobalamin (Vitamin B-12) 1,000 mcg capsule Discontinued 1000 ug PO DAILY October 27, 2023 1:00am March 30, 2025 9:16am End: 11-19-2024 cyanocobalamin (B-12) 1000 M CG tablet 0.5 (one-half) tablet (500 mcg total) every other day . 11/19/2024 Discontinued (Stop Taking at Discharge) Problems Active Problems Problem Classification Problem Date Documented Da te Episodic/Chronic Abdominal hernia (20 sources) Hiatal hernia; Translations: [Diaphragmatic hernia without obstruction or gangrene] 04-29-2023 Episodic Abdominal pain (1 source) Unspecified abdominal pain; Translations: [Unspecified abdominal pain] Onset: 5 Episodic Bacterial infection; unspecified site (9 sources) Rheumatic fever; Translations: [Rheumatic fever without [...] a normal sinus rhythm and is normal. Calculus of urinary tract (1 source) Calculus of kidney; Translations: [Calculus of kidney] Onset: 5 Episodic Chronic ulcer of skin (15 sources) Chronic non-pressure ulcer of calf extending [...] Episodic Conditions associated with dizziness or vertigo (15 sources) Vertigo; Translations: [Dizziness and giddiness] 11-02-2023 [...] [Essential (primary) hypertension] Onset: 5 04-29-2023 Chronic Comment on above: CONTROLLED ON MED Nausea and vomiting (15 sources) Nausea and vomiting; Translations: [Nausea with vomiting, unspecified] 11-02-2023 Episodic Occlusion or stenosis of precerebral arteries (9 sources) Vascular calcification; Translations: [Occlusion and stenosis of unspecified carotid artery] 11-14-2023 Chronic Comment on above: There is noted calci fication in the right carotid artery on CT scan. I did not auscultate a bruit but I do feel that further evaluation is indicated Open wounds of extremities (20 sources) Open wound of right lower leg; Translations: [Unspecified open wound, right lower leg, initial encounter] 05-06-2023 Episodic Comment on above: RESOLVED Other acquired deformities (1 source) Scoliosis of lumbar spine; Translations: [Scoliosis, unspecified] 10-08-2024 Chronic Other acquired deformities (12 sources) Scoliosis deformity of spine; Translations: [Scoliosis, unspecified] Onset: 4 10-08-2024 Chronic Other connective tissue disease (20 sources) Polymyalgia rheumatica; Translations: [Polymyalgia rheumatica] Onset: 4 04-29-2023 Chronic Other connective tissue disease (13 sources) History of total knee arthroplasty; Translations: [Presence of artificial knee joint, bilateral] 04-29-2023 Chronic Other connective tissue disease (7 sources) Presence of artificial knee joint, bilateral; Translations: [Knee joint replacement] 05-12-2023 Chronic Other connective tissue disease (13 sources) Polymyalgia rheumatica; Translations: [Polymyalgia rheumatica] 05-12-2023 Chronic Other ear and sense organ disorders (13 sources) Hearing loss; Translations: [Unspecified hearing loss, unspecified ear] 04-29-2023 Chronic Other ear and sense organ disorders (7 sources) Unspecified hearing loss, unspecified ear; Translations: [Unspecified hearing loss] 05-12-2023 Chronic Other ear and sense organ disorders (10 sources) Cochlear prosthesis in situ; Translations: [Cochlear implant status] 08-13-2023 Chronic Other ear and sense organ disorders (9 sources) Hereditary hearing loss; Translations: [Unspecified hearing loss, unspecified ear] 10-27-2023 Chronic Other ear and sense organ disorders (9 sources) Sensorineural hearing loss, bilateral; Translations: [Sensorineural hearing loss, bilateral] 10-27-2023 Chronic Other gastrointestinal disorders (13 sources) Dysphagia; Translations: [Dysphagia, unspecified] 04-29-2023 Episodic Other gastrointestinal disorders (7 sources) Dysphagia, unspecified; Translations: [Dysphagia, unspecified] 05-12-2023 Episodic Other hereditary and degenerative nervous system conditions (13 sources) Impaired cognition; Translations: [Mild cognitive impairment, so stated] 04-29-2023 Chronic Other hereditary and degenerative nervous system conditions (13 sources) Mild cognitive impairment, so stated; Translations: [Mild cognitive impairment, so stated] 05-12-2023 Chronic Other inflammatory condition of skin (1 source) Erythema; Translations: [Erythematous condition, unspecified] 12-08-2024 Episodic Other lower respiratory disease (20 sources) Chronic cough; Translations: [Chronic cough] 04-29-2023 Episodic Other nervous system disorders (2 sources) Post-surgery back pain 09-30-2024 Episodic Other nervous system disorders (2 sources) Acute postoperative pain; Translations: [Other acute postprocedural pain] 11-19-2024 Episodic Other upper respiratory infections (17 sources) Acute maxillary sinusitis; Translations: [Acute maxillary sinusitis, unspecified] 08-13-2023 Episodic Pancreatic disorders (not diabetes) (20 sources) Cyst of pancreas; Translations: [Cyst of pancreas] Onset: 04-29-2023 Episodic Pneumonia (except that caused by tuberculosis or sexually transmitted disease) (3 sources) Pneumonia; Translations: [Pneumonia, unspecified organism] 02-28-2024 Episodic Residual codes; unclassified (13 sources) Sleep apnea; Translations: [Sleep apnea, unspecified] 04-29-2023 Chronic Residual codes; unclassified (13 sources) Sleep apnea, unspecified; Translations: [Obstructive sleep apnea (adult)(pediatric)] 05-12-2023 Chronic Residual codes; unclassified (11 sources) Obstructive sleep apnea syndrome; Translations: [Obstructive sleep apnea (adult) (pediatric)] Onset: 5 10-28-2024 Chronic Residual codes; unclassified (1 source) H/O Spinal surgery; Translations: [Presence of other specified functional implants] 01-05-2025 Chronic Residual codes; unclassified (2 sources) Presence of other specified functional implants; Translations: [Presence of other specified functional implants] Onset: 5 Chronic Residual codes; unclassified (2 sources) Obstructive sleep apnea (adult) (pediatric); Translations: [Obstructive sleep apnea (adult) (pediatric)] Onset: 5 Chronic Residual codes; unclassified (20 sources) Presence of neurostimulator; Translations: [Peripheral nerve neurostimulator device in situ] 04-29-2023 Episodic Comment on above: REPLACED 11/21/2024 Residual codes; unclassified (2 sources) History of operative procedure on lumbar spinal structure; Translations: [Other specified postprocedural states] 12-08-2024 Episodic Residual codes; unclassified (2 sources) Other specified postprocedural states; Translations: [Other specified postprocedural states] Onset: 5 Episodic Spondylosis; intervertebral disc disorders; other back [...] Test Name Value Interpretation Reference Range Facility Abdomen/Pelvis without Conto n 03-25-2025 Abdomen/Pelvis without Cont [facility] [address] [place] [address] [id number] Abdomen/Pelvis without Cont MR#: [id number] Acct: [id number] Name: TAMRA GUZMAN Rep #: [id number] : 1955 M 70 From: Guido hammond MD PCP: Dr. Mike Aburto MD Status: REG CLI Study: Abdomen/Pelvis without Cont Date of Exam: 03/13 01/04 Exam# [id number] Ordering Dr: Miek Aburto MD PROCEDURE: ABDOMEN/PELVIS WITHOUT CONT 03/25/2025 REASON FOR EXAM: R FLANK PAIN TECHNIQUE: Abdomen and pelvis CT without intravenous contrast. Noncontrast technique limits evaluation of the abdominal and pelvic viscera. Coronal and Sagittal reconstruction series were provided. One or more dose reduction techniques were used (e.g., Automated exposure control, adjustment of the mA and/or kV according to patient size, use of iterative reconstruction technique). Dose report: CTDI L volume: 9.67 mGy. DLP: 514.66 mGy. PATIENT PREPARATION: Per protocol ORAL CONTRAST TYPE: None. COMPARISON: Prior study dated March 11, 2023. FINDINGS: Lung bases: Minimal basilar atelectasis. Calcified granuloma in the posterior medial aspect of the left lower lobe. Coronary artery calcification. Liver: Normal size. No obvious mass. Gallbladder: Unremarkable Spleen: Borderline splenomegaly. Pancreas: Normal size. No surrounding inflammation. Stable 1.6 cm cyst in the region of the uncinate process of the pancreas. Adrenals: Unremarkable Kidneys: There is a nonobstructive 3.5 mm calculus in the midpole posterior aspect of the right kidney. No evidence of hydronephrosis. Punctate calcification in the posterior midpole calyx of the left kidney. Stable 1 cm cyst in the lower pole of the right kidney. Bladder: Diffusely thickened urinary bladder wall. Cystitis should be ruled out. Mild increased markings are seen in the surrounding peritoneal fat. Central prostatic calcification. Bowel: Colonic diverticulosis without diverticulitis. Appendix: Unremarkable Lymph nodes: Unremarkable. Vasculature: Mild diffuse atherosclerotic calcifications are noted. Peritoneum / Retroperitoneum: Unremarkable Bones: Stable anterior listhesis of L4 on L5. Degenerative changes of the lumbar spine. Spinal cord stimulator device is seen. CT/Abdomen/Pelvis without Cont IMPRESSION: Small bilateral nonobstructive intrarenal calculi more prominent on the right side. No evidence of ureteral obstruction at this time. Borderline splenomegaly. Stable right renal cyst. Diffuse thickening of the urinary bladder wall. Cystitis should be ruled out. OVERALL FINAL ASSESSMENT: . Reading Location: [id number] CC: Dr. Mike Aburto MD Rubber Splicer: Signed Normal [facility] No Panel InformationOrdered By: Mike Aburto on 03-25-2025 Lyme Disease IgG Ab 30 kDa Band Absent . [facility] Lyme Disease IgG Ab 93 kDa Band Absent . [facility] Lyme Disease IgG West Blot Interp Negative Negative [facility] Lyme Disease IgM Ab (Western Blot) Negative Negative [facility] Comment on above: Please Note: Lyme im munoblot alone is not recommended forthe diagnosis of Lyme disease. Current guidelines recommendthe use of a two-tiered approach to Lyme serology testingto improve the sensitivity and specificity of testing.[facility] offers test code 879780 Lyme Disease Serology withReflex to aid in the diagnosis of Lyme Disease. Lyme Disease Western Blot Comments Comment . [facility] Comment on above: Per CDC criteria, th e Lyme IgG Immunoblot is interpreted aspositive if IgG-class antibodies are detected to 5 or moreB. burgdorferi proteins, and the Lyme IgM Immunoblot isinterpreted as positive if IgM-class antibodies aredetected to 2 or more B. burgdorferi proteins. Immunoblotpatterns not meeting these criteria should not beinterpreted as positive. Epitopes from certain B.burgdorferi proteins (e.g., p41) are conserved across otherbacteria, which may lead to the detection of IgM-and/or IgGclass antibodies on the Lyme disease immunoblots inpatients without Lyme disease. Immunoblot should only beordered on specimens that are positive or equivocal by anFDA-licensed Lyme disease antibody screening test (e.g.,EIA). Results of the Lyme IgM immunoblot should not beconsidered in patients with 30 or more days of symptoms.Performed at: [address] [id number] Director: Hue Davidson MD, Phone: [phone] Absolute lymphocyte countOrd ered By: Mike Aburto on 03-14-2025 Lymphocytes Auto (Unsp spec) [#/Vol] 0.85 10*3/uL 0.83-4.51 [facility] Absolute neutrophil countOrd ered By: Mike Aburto on 03-14-2025 Neutrophils (Bld) [#/Vol] 4.9 10*3/uL 2.0-7.7 [facility] Anion gap in Serum or Plasma Ordered By: Mike Aburto on 03-14-2025 Anion gap [Moles/Vol] 8 mmol/L 5-15 [facility] Automated lymphocyte count a s percentage of total leukocytesOrdered By: Mike Aburto on 03-14-2025 Lymphocytes/100 WBC Auto (Unsp spec) 13.5 % Low 19-41 [facility] BUN/creatinine ratioOrdered By: Mike Aburto on 03-14-2025 Urea nitrogen/Creatinine [Mass ratio] 20.0 mg/mg 10-20 [facility] Basophil percentageOrdered B y: Mike Aburto on 03-14-2025 Basophils/100 WBC (Bld) 0.3 % 0-1 [facility] Bilirubin, totalOrdered By: Mike Aburto on 03-14-2025 Bilirubin [Mass/Vol] 0.61 mg/dL 0.00-1.30 [facility] CBC W/Diff, Automatedon -2024 Absolute Lymph 0.85 X10 3/uL Normal 0.83-4.51 [facility] Comment on above: Performed By: #### L 500.4050, L501.9520, L506.1001, L100.0100 #### [facility] [address] [place], [address] Absolute Neut 4.9 X10 3/uL Normal 2.0-7.7 [facility] Comment on above: Performed By: #### L 500.4050, L501.9520, L506.1001, L100.0100 #### [facility] [address] [place], [address] Basophils/100 WBC (Bld) 0.3 % Normal 0-1 [facility] Comment on above: Performed By: #### L 500.4050, L501.9520, L506.1001, L100.0100 #### [facility] [address] [place], [address] Eosinophils/100 WBC (Bld) 1.3 % Normal 0-5 [facility] Comment on above: Performed By: #### L 500.4050, L501.9520, L506.1001, L100.0100 #### [facility] [address] [place], [address] Erythrocyte distribution width (RBC) [Ratio] 13.1 % Normal 11.6-14.6 [facility] Comment on above: Performed By: #### L 500.4050, L501.9520, L506.1001, L100.0100 #### [facility] [address] [place], [address] Hematocrit (Bld) [Volume fraction] 44.6 % Normal 40-54 [facility] Comment on above: Performed By: #### L 500.4050, L501.9520, L506.1001, L100.0100 #### [facility] [address] [place], [address] Hemoglobin (Bld) [Mass/Vol] 14.6 g/dL Normal 13.0-16.5 [facility] Comment on above: Performed By: #### L 500.4050, L501.9520, L506.1001, L100.0100 #### [facility] [address] [place], [address] IG% 0.300 Normal 0.0-0.9 [facility] Comment on above: Result Comment: IG% - Immature Granulocytes (promyelocytes, myelocytes and metamyelocytes) > 1% indicates that a LEFT SHIFT is Present. Performed By: #### L 500.4050, L501.9520, L506.1001, L100.0100 #### [facility] [address] [place], [address] Lymphocytes/100 WBC (Bld) 13.5 % Low 19-41 [facility] Comment on above: Performed By: #### L 500.4050, L501.9520, L506.1001, L100.0100 #### [facility] [address] [place], [address] MCH (RBC) [Entitic mass] 28.2 pg Normal 27.0-32.0 [facility] Comment on above: Performed By: #### L 500.4050, L501.9520, L506.1001, L100.0100 #### [facility] [address] [place], [address] MCHC (RBC) [Mass/Vol] 32.7 g/dL Normal 32-36 [facility] Comment on above: Performed By: #### L 500.4050, L501.9520, L506.1001, L100.0100 #### [facility] [address] [place], [address] MCV (RBC) [Entitic vol] 86.1 fL Normal 80-94 [facility] Comment on above: Performed By: #### L 500.4050, L501.9520, L506.1001, L100.0100 #### [facility] [address] [place], [address] Monocytes/100 WBC (Bld) 6.8 % Normal 0-10 [facility] Comment on above: Performed By: #### L 500.4050, L501.9520, L506.1001, L100.0100 #### [facility] [address] [place], [address] Neutrophils/100 WBC (Bld) 77.8 % High 47-70 [facility] Comment on above: Performed By: #### L 500.4050, L501.9520, L506.1001, L100.0100 #### [facility] [address] [place], [address] Nucleated RBC (Bld) [#/Vol] 0 10*3/uL Normal 0-5 [facility] Comment on above: Performed By: #### L 500.4050, L501.9520, L506.1001, L100.0100 #### [facility] [address] [place], [address] Platelet mean volume (Bld) [Entitic vol] 10.8 fL Normal 6.2-12.0 [facility] Comment on above: Performed By: #### L 500.4050, L501.9520, L506.1001, L100.0100 #### [facility] [address] [place], [address] Platelets (Bld) [#/Vol] 147 10*3/uL Low 150-450 [facility] Comment on above: Performed By: #### L 500.4050, L501.9520, L506.1001, L100.0100 #### [facility] [address] [place], [address] RBC (Bld) [#/Vol] 5.18 10*6/uL Normal 4.6-6.2 [facility] Comment on above: Performed By: #### L 500.4050, L501.9520, L506.1001, L100.0100 #### [facility] [address] [place], [address] RDW SD 40.9 fl Normal 35.1-43.9 [facility] Comment on above: Performed By: #### L 500.4050, L501.9520, L506.1001, L100.0100 #### [facility] [address] [place], [address] WBC (Bld) [#/Vol] 6.3 10*3/uL Normal 4.4-11.0 [facility] Comment on above: Performed By: #### L 500.4050, L501.9520, L506.1001, L100.0100 #### [facility] [address] [place], [address] Carbon dioxide, total [Moles /volume] in Central venous bloodOrdered By: Mike Aburto on 03-14-2025 CO2 [Moles/Vol] 27.6 mmol/L 21.0-32.0 [facility] Chloride assayOrdered By: Joseph Aburto on 03-14-2025 Chloride [Moles/Vol] 105 mmol/L 98-108 [facility] Comprehensive Metabolic Prof ilon 03-14-2025 Albumin [Mass/Vol] 4.1 g/dL Normal 3.4-4.8 [facility] Comment on above: Performed By: #### L 500.4100, L500.3400 #### [facility] [address] [place], [address] Albumin/Globulin [Mass ratio] 1.8 {ratio} Normal 0.9-2.4 [facility] Comment on above: Performed By: #### L 500.4100, L500.3400 #### [facility] [address] [place], [address] ALK PHOS 107 U/L Normal 40-129 [facility] Comment on above: Performed By: #### L 500.4100, L500.3400 #### [facility] [address] [place], [address] ALT [Catalytic activity/Vol] 25 U/L Normal <=46 [facility] Comment on above: Performed By: #### L 500.4100, L500.3400 #### [facility] [address] [place], [address] AST [Catalytic activity/Vol] 32 U/L Normal <=37 [facility] Comment on above: Performed By: #### L 500.4100, L500.3400 #### [facility] [address] [place], [address] Bilirubin [Mass/Vol] 0.61 mg/dL Normal 0.00-1.30 [facility] Comment on above: Performed By: #### L 500.4100, L500.3400 #### [facility] [address] [place], [address] BUN/CRE 20.0 RATIO Normal 10-20 [facility] Comment on above: Performed By: #### L 500.4100, L500.3400 #### [facility] [address] [place], [address] Calcium [Mass/Vol] 9.2 mg/dL Normal 7.6-11.0 [facility] Comment on above: Performed By: #### L 500.4100, L500.3400 #### [facility] [address] [place], [address] Chloride [Moles/Vol] 105 mmol/L Normal 98-108 [facility] Comment on above: Performed By: #### L 500.4100, L500.3400 #### [facility] [address] [place], [address] CO2 [Moles/Vol] 27.6 mmol/L Normal 21.0-32.0 [facility] Comment on above: Performed By: #### L 500.4100, L500.3400 #### [facility] [address] [place], [address] Creatinine [Mass/Vol] 1.02 mg/dL Normal 0.70-1.20 [facility] Comment on above: Performed By: #### L 500.4100, L500.3400 #### [facility] [address] [place], [address] GAP 8 Normal 5-15 [facility] Comment on above: Performed By: #### L 500.4100, L500.3400 #### [facility] [address] [place], [address] GFR/1.73 sq M.predicted among non-blacks MDRD (S/P/Bld) [Vol rate/Area] 78 mL/min/{1.73_m2} Normal >60 [facility] Comment on above: Result Comment: mL/m in/1.73m2 CKD-EPI Creatinine Equation (2020) Performed By: #### L 500.4100, L500.3400 #### [facility] [address] [place], [address] Globulin (S) [Mass/Vol] 2.3 g/dL Normal 2.2-4.2 [facility] Comment on above: Performed By: #### L 500.4100, L500.3400 #### [facility] [address] [place], [address] Glucose [Mass/Vol] 91 mg/dL Normal 70-99 [facility] Comment on above: Performed By: #### L 500.4100, L500.3400 #### [facility] [address] [place], [address] Potassium [Moles/Vol] 4.5 mmol/L Normal 3.3-5.1 [facility] Comment on above: Performed By: #### L 500.4100, L500.3400 #### [facility] [address] [place], [address] Sodium [Moles/Vol] 141 mmol/L Normal 133-145 [facility] Comment on above: Performed By: #### L 500.4100, L500.3400 #### [facility] [address] [place], [address] T PROT 6.3 g/dL Normal 5.9-8.4 [facility] Comment on above: Performed By: #### L 500.4100, L500.3400 #### [facility] [address] [place], [address] Urea nitrogen [Mass/Vol] 20 mg/dL High 4-19 [facility] Comment on above: Performed By: #### L 500.4100, L500.3400 #### [facility] [address] [place], [address] Eosinophil percentageOrdered By: Mike Aburto on 03-14-2025 Eosinophils/100 WBC (Bld) 1.3 % 0-5 [facility] Erythrocyte distribution wid th ratioOrdered By: [facility] 03-14-[facility] Erythrocyte distribution width (RBC) [Ratio] 13.1 % 11.6-14.6 [facility] Erythrocyte distribution wid th standard deviationOrdered By: [facility] on 03-14-2025 Erythrocyte distribution width (RBC) [Ratio] 40.9 fl 35.1-43.9 [facility] Glomerular filtration rate ( GFR) estimation/1.73 sq m using serum, plasma, or whole bOrdered By: Mike Lamonte on 03-14-2025 GFR/1.73 sq M.predicted among non-blacks MDRD (S/P/Bld) [Vol rate/Area] 78 mL/min/{1.73_m2} >60 [facility] Comment on above: mL/min/1.73m2 CKD-EP I Creatinine Equation (2020) Hematocrit Auto (Bld) [Volum e fraction]Ordered By: [facility] 03-14-2025 Hematocrit (Bld) [Volume fraction] 44.6 % 40-54 [facility] Hemoglobin measurementOrdere d By: Mike Lamonte 03-14-2025 Hemoglobin (Bld) [Mass/Vol] 14.6 g/dL 13.0-16.5 [facility] Immature granulocytes/100 WB C Auto (Bld)Ordered By: Mike Aburto 03-14-2025 Immature granulocytes/100 WBC (Bld) 0.300 % 0.0-0.9 [facility] Comment on above: IG% - Immature Granu locytes (promyelocytes, myelocytes and metamyelocytes) > 1% indicates that a LEFT SHIFT is Present. Laboratory - Chemistry and C hemistry - challengeOrdered By: Mike Lamonte 03-14-2025 AST [Catalytic activity/Vol] 32 U/L <38 [facility] MCV (mean corpuscular volume ) determinationOrdered By: [facility] 03-14-2025 MCV (RBC) [Entitic vol] 86.1 fL 80-94 [facility] Mean corpuscular hemoglobin (MCH) determinationOrdered By: [facility] 03-14-2025 MCH (RBC) [Entitic mass] 28.2 pg 27.0-32.0 [facility] Mean corpuscular hemoglobin concentration (MCHC) determinationOrdered By: Mike Aburto on 03-14-2025 MCHC (RBC) [Mass/Vol] 32.7 g/dL 32-36 [facility] Mean platelet volume determi nationOrdered By: Mike Aburto on 03-14-2025 Platelet mean volume (Bld) [Entitic vol] 10.8 fL 6.2-12.0 [facility] Monocyte percentageOrdered B y: Mike Aburto on 03-14-2025 Monocytes/100 WBC (Bld) 6.8 % 0-10 [facility] Neutrophil percentageOrdered By: Mike Aburto on 03-14-2025 Neutrophils/100 WBC (Bld) 77.8 % High 47-70 [facility] Nucleated red blood cell per centageOrdered By: Mike Aburto on 03-14-2025 Nucleated RBC/100 WBC (Bld) [Ratio] 0 % 0-5 [facility] Platelet countOrdered By: Joseph Aburto on 03-14-2025 Platelets (Bld) [#/Vol] 147 10*3/uL Low 150-450 [facility] Potassium measurement (mass/ volume)Ordered By: Mike Aburto on 03-14-2025 Potassium (Unsp spec) [Mass/Vol] 4.5 mmol/L 3.3-5.1 [facility] RBC Auto (Bld) [#/Vol]Ordere d By: Mike Aburto on 03-14-2025 RBC (Bld) [#/Vol] 5.18 10*6/uL 4.6-6.2 [facility] Serum creatinine measurement (mass/volume)Ordered By: Mike Aburto on 03-14-2025 Creatinine [Mass/Vol] 1.02 mg/dL 0.70-1.20 [facility] Serum globulin measurementOr dered By: Mike Aburto on 03-14-2025 Globulin (S) [Mass/Vol] 2.3 g/dL 2.2-4.2 [facility] Serum glucose measurement (m ass/volume)Ordered By: Mike Aburto on 03-14-2025 Glucose [Mass/Vol] 91 mg/dL 70-99 [facility] Serum or plasma alanine rios otransferase (ALT) measurementOrdered By: Mike Aburto on 03-14-2025 ALT [Catalytic activity/Vol] 25 U/L <47 [facility] Serum or plasma albumin mamie urement (mass/volume)Ordered By: Mike Aburto on 03-14-2025 Albumin [Mass/Vol] 4.1 g/dL 3.4-4.8 [facility] Serum or plasma albumin/glob ulin mass ratioOrdered By: Mike Aburto on 03-14-2025 Albumin/Globulin [Mass ratio] 1.8 {ratio} 0.9-2.4 [facility] Serum or plasma alkaline ruddy sphatase measurementOrdered By: Mike Aburto on 03-14-2025 ALP [Catalytic activity/Vol] 107 U/L 40-129 [facility] Serum or plasma calcium mamie urement (mass/volume)Ordered By: Mike Aburto on 03-14-2025 Calcium [Mass/Vol] 9.2 mg/dL 7.6-11.0 [facility] Serum or plasma urea nitroge n measurement (mass/volume)Ordered By: Mike Aburto on 03-14-2025 Urea nitrogen [Mass/Vol] 20 mg/dL High 4-19 [facility] Sodium levelOrdered By: Mike Aburto on 03-14-2025 Sodium [Moles/Vol] 141 mmol/L 133-145 [facility] TSH DL <= 0.005 mIU/L QnOrde red By: Mike Aburto on 03-14-2025 TSH Qn 1.040 uIU/mL 0.300-4.20 0 [facility] Thyroid Stim Hormone (TSH)on 03-14-2025 TSH 1.040 uIU/mL Normal 0.300-4.20 0 [facility] Comment on above: Performed By: #### L 500.7217, L500.0603 #### [facility] [address] [place], [address] Total proteinOrdered By: Mike Aburto on 03-14-2025 Protein [Mass/Vol] 6.3 g/dL 5.9-8.4 [facility] Vitamin D,25 Hydroxyon 03-14 Vitamin D 25-OH 21.9 ng/mL Low 30-100 [facility] Comment on above: Result Comment: Felecia min D Status Deficiency: <20 ng/mL (50nmol/L) Insufficiency: 20-30 ng/mL (50-75 nmol/L) Sufficiency: 30-100 ng/mL (75-250 nmol/L) Toxicity: >100 ng/mL (>250 nmol/L) Performed By: #### L 500.4100, L500.3400 #### [facility] [address] [place], [address] White blood cell (WBC) count Ordered By: Mike Aburto on 03-14-2025 WBC (Bld) [#/Vol] 6.3 10*3/uL 4.4-11.0 [facility] PT/INRon 02-22-2025 INR Coag (PPP) [Relative time] 1.0 {INR} Normal 0.8-1.1 [facility] Comment on above: Order Comment: Zach ferrara the induction phase of oral anticoagulation, the INR may not reflect the anticoagulation status of the patient. Therapeutic ranges for INR's are: Most clinical situations: INR 2.0-3.0 Mechanical Prosthetic Valve: INR 2.5-3.5 Critical: INR >5.0 Performed By: #### 4 6391 #### LAB [address] [place], [place] [address] Jeffrey Kohli M.D. [id number] PT Coag (PPP) [Time] 13.1 s Normal 11.8-14.3 [facility] Comment on above: Order Comment: Zach ferrara the induction phase of oral anticoagulation, the INR may not reflect the anticoagulation status of the patient. Therapeutic ranges for INR's are: Most clinical situations: INR 2.0-3.0 Mechanical Prosthetic Valve: INR 2.5-3.5 Critical: INR >5.0 Performed By: #### 4 6391 #### [facility] [address] [place], [place] [address] Jeffrey Kohli M.D. [id number] TYPE AND SCREENon 02-22-2025 TYPE AND SCREEN ABORH: O Positive AB SCREEN: Negative EXPIRATION DATE: 02/25/2025 23:59 EST Normal [facility] BASIC METABOLIC PANELon 05-0 Anion gap [Moles/Vol] 11 mmol/L Normal 10-20 [facility] Comment on above: Order Comment: [facility] has implemented the eGFR calculation approach that does not have a coefficient for race that conforms to the NKF-ASN Task Force Recommendations. Performed By: #### 4 6124 #### [facility] [address] [place] [address] Jeffrey Kohli M.D. [id number] Calcium [Mass/Vol] 8.8 mg/dL Normal 8.4-10.[address] [facility] Comment on above: Order Comment: [facility] has implemented the eGFR calculation approach that does not have a coefficient for race that conforms to the NKF-ASN Task Force Recommendations. Performed By: #### 4 6124 #### [facility] [address] [place] [address] Jeffrey Kohli M.D. [id number] Chloride [Moles/Vol] 105 mmol/L Normal 98-108 [facility] Comment on above: Order Comment: [facility] has implemented the eGFR calculation approach that does not have a coefficient for race that conforms to the NKF-ASN Task Force Recommendations. Performed By: #### 4 6124 #### [facility] [address] [place] [address] Jeffrey Kohli M.D. [id number] Creatinine [Mass/Vol] 0.99 mg/dL Normal 0.80-1.30 [facility] Comment on above: Order Comment: [facility] has implemented the eGFR calculation approach that does not have a coefficient for race that conforms to the NKF-ASN Task Force Recommendations. Performed By: #### 4 6124 #### [facility] [address] [place] [address] Jeffrey Kohli M.D. [id number] EGFR 81 mL/min/1.73 m2 Normal >=60 [facility] Comment on above: Order Comment: [facility] has implemented the eGFR calculation approach that does not have a coefficient for race that conforms to the NKF-ASN Task Force Recommendations. Result Comment: Katty mated GFR was calculated using the 2020 CKD-EPI creatinine equation. Performed By: #### 4 6131 #### [facility] [address] [place] [address] Jeffrey Kohli M.D. [id number] Glucose [Mass/Vol] 89 mg/dL Normal 65-[address] [facility] Comment on above: Order Comment: [facility] has implemented the eGFR calculation approach that does not have a coefficient for race that conforms to the NKF-ASN Task Force Recommendations. Performed By: #### 4 6163 #### [facility] [address] [place] [address] Jeffrey Kohli M.D. [id number] HCO3 (Bld) [Moles/Vol] 28 mmol/L Normal 21-32 [facility] Comment on above: Order Comment: [facility] has implemented the eGFR calculation approach that does not have a coefficient for race that conforms to the NKF-ASN Task Force Recommendations. Performed By: #### 4 6124 #### [facility] [address] [place] [address] Jeffrey Kohli M.D. [id number] Potassium [Moles/Vol] 4.2 mmol/L Normal 3.5-5.1 [facility] Comment on above: Order Comment: [facility] has implemented the eGFR calculation approach that does not have a coefficient for race that conforms to the NKF-ASN Task Force Recommendations. Performed By: #### 4 6112 #### [facility] [address] [place] [address] Jeffrey Kohli M.D. [id number] Sodium [Moles/Vol] 140 mmol/L Normal 135-[address] [facility] Comment on above: Order Comment: [facility] has implemented the eGFR calculation approach that does not have a coefficient for race that conforms to the NKF-ASN Task Force Recommendations. Performed By: #### 4 6101 #### [facility] [address] [place] [address] Jeffrey Kohli M.D. [id number] Urea nitrogen [Mass/Vol] 15 mg/dL Normal 8-25 [facility] Comment on above: Order Comment: [facility] has implemented the eGFR calculation approach that does not have a coefficient for race that conforms to the NKF-ASN Task Force Recommendations. Performed By: #### 4 6124 #### [facility] [address] [place] [address] Jeffrey Kohli M.D. [id number] Urea nitrogen/Creatinine [Mass ratio] 15.2 mg/mg Normal 10.0-20.0 [facility] Comment on above: Order Comment: [facility] has implemented the eGFR calculation approach that does not have a coefficient for race that conforms to the NKF-ASN Task Force Recommendations. Performed By: #### 4 6124 #### [facility] [address] [place] [address] Jeffrey Kohli M.D. [id number] CBCon 02-14-2025 AUTO NRBC 0.0 % Normal [facility] Comment on above: Performed By: #### 4 [id number] #### [facility] [address] [place] [address] Jeffrey Kohli M.D. [id number] AUTO NRBC ABS COUNT 0.00 K/mcL Normal 0.00-0.00 [facility] Comment on above: Performed By: #### 4 [id number] #### [facility] [address] [place] [address] Jeffrey Kohli M.D. [id number] Erythrocyte distribution width (RBC) [Ratio] 13.2 % Normal 11.6-14.8 [facility] Comment on above: Performed By: #### 4 [id number] #### [facility] [address] [place] [address] Jeffrey Kohli M.D. [id number] Hematocrit (Bld) [Volume fraction] 44.5 % Normal 41.0-53.0 [facility] Comment on above: Performed By: #### 4 [id number] #### [facility] [address] [place] [address] Jeffrey Kohli M.D. [id number] Hemoglobin (Bld) [Mass/Vol] 14.4 g/dL Normal 13.5-17.5 [facility] Comment on above: Performed By: #### 4 [id number] #### [facility] [address] [place] [address] Jeffrey Kohli M.D. [id number] MCH (RBC) [Entitic mass] 28.0 pg Normal 26.0-34.0 [facility] Comment on above: Performed By: #### 4 [id number] #### [facility] [address] [place] [address] Jeffrey Kohli M.D. [id number] MCV (RBC) [Entitic vol] 86.4 fL Normal 80.0-100.0 [facility] Comment on above: Performed By: #### 4 [id number] #### [facility] [address] [place] [address] Jeffrey Kohli M.D. [id number] MEAN CORPUSCULAR HEMOGLOBIN CONC 32.4 g/dL Normal 31.0-37.0 [facility] Comment on above: Performed By: #### 4 [id number] #### [facility] [address] [place] [address] Jeffrey Kohli M.D. [id number] Platelet mean volume (Bld) [Entitic vol] 10.2 fL Normal 9.4-12.4 [facility] Comment on above: Performed By: #### 4 [id number] #### [facility] [address] [place] [address] Jeffrey Kohli M.D. [id number] Platelets (Bld) [#/Vol] 147 10*3/uL Low 150-400 [facility] Comment on above: Performed By: #### 4 [id number] #### [facility] [address] [place] [address] Jeffrey Kohli M.D. [id number] RBC (Bld) [#/Vol] 5.15 10*6/uL Normal 4.50-5.90 [facility] Comment on above: Performed By: #### 4 [id number] #### LAB [address] [place], [place] [address] Jeffrey Kohli M.D. [id number] WBC (Bld) [#/Vol] 5.16 10*3/uL Normal 4.50-11.00 [facility] Comment on above: Performed By: #### 4 [id number] #### [facility] [address] [place] [address] Jeffrey Kohli M.D. [id number] MRSA CULTURE/SCREENon 2024 MRSA CULTURE/SCREEN MRSA CULTURE No Methicillin Resistant Staphylococcus (MRSA) Isolated [facility] Comment on above: Performed By: #### 4 6124 #### LAB [address] [place], [place] [address] Jeffrey Kohli M.D. [id number] TYPE AND SCREENon 02-14-2025 TYPE AND SCREEN ABORH: O Positive AB SCREEN: Negative EXPIRATION DATE: 03/07/2025 23:59 EST [facility] XR CHEST AP/PA AND LATon XR CHEST [...] on FriFebruary 14, 2025 3:46:30 PM EDT [facility] Comment on above: Order Comment: [facility] has implemented the eGFR calculation [...] spine with scoliotic curvature. No acute fracture. MA/linaw Workstation ID: [id number] Dictated by: MITA VERA on FriJan 06, 2025 4:30:01 PM EDT Transcribed by: MATTHEW OROPEZA on FriJan 06, 2025 4:58:20 PM EDT Finalized by: MITA VERA on FriJan 07, 2025 9:31:24 AM EDT [facility] Comment on above: Order Comment: Injur y/Trauma [...] on FriJan 07, 2025 9:31:24 AM EDT Normal [facility] Comment on above: Order Comment: Injur y/Trauma or Illness?:Illness/Other How long have you had these symptoms (acute/chronic)?:Acute Reason for exam?:evalaute stimulator for migration., Status post lumbar surgery, History of cancer?:.u Surgeries, chemotherapy, or radiation?:.u Type of Exam?:Ongoing Additional signs and symptoms?:. Bilirubin directOrdered By: Cathleen Fermin on 12-21-2024 Bilirubin.direct [Mass/Vol] 0.28 mg/dL 0.00-0.30 [facility] Bilirubin, totalOrdered By: Cathleen Fermin on 12-21-2024 Bilirubin [Mass/Vol] 0.58 mg/dL 0.00-1.30 [facility] Calculated very low density lipoprotein (VLDL) cholesterol measurementOrdered By: Cathleen Fermin on 12-21-2024 Calculated very low density lipoprotein (VLDL) cholesterol measurement 11 mg/dL 5-40 [facility] VLDL Cholesterol 11 mg/dL 5-40 [facility] LDL calc ser/plasOrdered By: Cathleen Fermin on 12-21-2024 Cholesterol in LDL [Mass/Vol] 69 mg/dL [facility] Comment on above: Xldcxgqldw=259-899 m g/dL & Higher Hxed=371 mg/dL or greater LDL Cholesterol, Calculated 69 mg/dL [facility] Comment on above: Kfsztiewrb=715-439 m g/dL & Higher Fwam=711 mg/dL or greater Laboratory - Chemistry and C hemistry - challengeOrdered By: Cathleen Fermin on 12-21-2024 AST [Catalytic activity/Vol] 30 U/L <38 [facility] Lipid Profileon 12-21-2024 CHOL:HDL 2.08 Normal [facility] Comment on above: Performed By: #### L 500.4100, L500.3400 #### [facility] Laboratory [address] [place], [place], [id number] ([phone]) Cholesterol [Mass/Vol] 155 mg/dL Normal <=200 [facility] Comment on above: Result Comment: Chol esterol level, Desirable <200 mg/dL Borderline high cholesterol 200-239 mg/dL High cholesterol >=240 mg/dL Recommendations of the NCEP Adult Treatment Panel for the following risk-cutoff thresholds for the [place] population. Performed By: #### L 500.4100, L500.3400 #### [facility] [address] [place], [address] Cholesterol in HDL [Mass/Vol] 74 mg/dL Normal [facility] Comment on above: Result Comment: Gaby onal Cholesterol Education Program (NCEP) guidelines: <40 mg/dL: Low HDL-cholesterol (major risk factor for CHD) >= 60 mg/dL: High HDL-cholesterol (negative risk factor for CHD) HDL-cholesterol is affected by a number of factors, e.g. smoking, exercise, hormones, sex and age. Performed By: #### L 500.4100, L500.3400 #### [facility] [address] [place], [address] Cholesterol in LDL [Mass/Vol] 69 mg/dL Normal [facility] Comment on above: Result Comment: Bord dxbsno=642-417 mg/dL Higher Bdev=781 mg/dL or greater Performed By: #### L 500.4100, L500.3400 #### [facility] [address] [place], [address] Cholesterol in VLDL [Mass/Vol] 11 mg/dL Normal 5-40 [facility] Comment on above: Performed By: #### L 500.4100, L500.3400 #### [facility] [address] [place], [address] Triglyceride [Mass/Vol] 57 mg/dL Normal [facility] Comment on above: Result Comment: The drugs N-Acetylcysteine and Metamizole may falsely depress this assay. Normal range: <150 mg/dL Borderline High: 150-199 mg/dL High: 200-499 mg/dL Very High: >500 mg/dL Performed By: #### L 500.4100, L500.3400 #### [facility] [address] [place], [address] Liver Profileon 12-21-2024 Albumin [Mass/Vol] 3.8 g/dL Normal 3.4-4.8 [facility] Comment on above: Performed By: #### L 500.4100, L500.3400 #### [facility] [address] [place], [address] ALK PHOS 95 U/L Normal 40-129 [facility] Comment on above: Performed By: #### L 500.4100, L500.3400 #### [facility] [address] [place], [address] ALT [Catalytic activity/Vol] 22 U/L Normal <=46 [facility] Comment on above: Performed By: #### L 500.4100, L500.3400 #### [facility] [address] [place], [address] AST [Catalytic activity/Vol] 30 U/L Normal <=37 [facility] Comment on above: Performed By: #### L 500.4100, L500.3400 #### [facility] [address] [place], [address] Bilirubin [Mass/Vol] 0.58 mg/dL Normal 0.00-1.30 [facility] Comment on above: Performed By: #### L 500.4100, L500.3400 #### [facility] [address] [place], [address] Bilirubin.direct [Mass/Vol] 0.28 mg/dL Normal 0.00-0.30 [facility] Comment on above: Performed By: #### L 500.4100, L500.3400 #### [facility] [address] [place], [address] Globulin (S) [Mass/Vol] 2.2 g/dL Normal 2.2-4.2 [facility] Comment on above: Performed By: #### L 500.4100, L500.3400 #### [facility] [address] [place], [address] T PROT 6.0 g/dL Normal 5.9-8.4 [facility] Comment on above: Performed By: #### L 500.4100, L500.3400 #### [facility] [address] [place], [address] Screening total cholesterol/ high density lipoprotein (HDL) cholesterol ratioOrdered By: Cathleen Fermin on 12-21-2024 Cholesterol.total/Chol esterol in HDL [Mass ratio] 2.08 {ratio} [facility] Serum globulin measurementOr dered By: Cathleen Fermin on 12-21-2024 Globulin (S) [Mass/Vol] 2.2 g/dL 2.2-4.2 [facility] Serum or plasma alanine rios otransferase (ALT) measurementOrdered By: Cathleen Fermin on 12-21-2024 ALT [Catalytic activity/Vol] 22 U/L <47 [facility] Serum or plasma albumin mamie urement (mass/volume)Ordered By: Cathleen Fermin on 12-21-2024 Albumin [Mass/Vol] 3.8 g/dL 3.4-4.8 [facility] Serum or plasma alkaline ruddy sphatase measurementOrdered By: Cathleen Fermin on 12-21-2024 ALP [Catalytic activity/Vol] 95 U/L 40-129 [facility] Serum or plasma cholesterol in HDL measurement (mass/volume)Ordered By: Cathleen Fermin on 12-21-2024 Cholesterol in HDL [Mass/Vol] 74 mg/dL >40 [facility] Comment on above: National Cholesterol Education Program (NCEP) guidelines:<40 mg/dL: Low HDL-cholesterol (major risk factor for CHD)>= 60 mg/dL: High HDL-cholesterol (negative risk factor for CHD)HDL-cholesterol is affected by a number of factors, e.g. smoking, exercise, hormones, sex and age. Serum or plasma cholesterol measurement (mass/volume)Ordered By: Cathleen Fermin on 12-21-2024 Cholesterol [Mass/Vol] 155 mg/dL <201 [facility] Comment on above: Cholesterol level, D esirable <200 mg/dLBorderline high cholesterol 200-239 mg/dLHigh cholesterol >=240 mg/dLRecommendations of the NCEP Adult Treatment Panel for the following risk-cutoff thresholds for the [place] population. Total proteinOrdered By: Anton Fermin on 12-21-2024 Protein [Mass/Vol] 6.0 g/dL 5.9-8.4 [facility] Triglycerides measurementOrd ered By: Cathleen Fermin on 12-21-2024 Triglyceride [Mass/Vol] 57 mg/dL <199 [facility] Comment on above: The drugs N-Acetylcy steine and Metamizole may falsely depress this assay. Normal range: <150 mg/dLBorderline High: 150-199 mg/dLHigh: 200-499 mg/dLVery High: >500 mg/dL C-REACTIVE PROTEINon 025 CRP [Mass/Vol] mg/L Normal <8.0 [facility] Comment on above: Performed By: #### 6 399, 809 #### [facility] [place] [address] Analysis Evaluator: Randal Alejandre MD CBC (INCLUDES DIFF/PLT)on Basophils (Bld) [#/Vol] 0.029 10*3/uL Normal 0-200 [facility] Comment on above: Performed By: #### 6 399, 809 #### [facility] [place] [address] Analysis Evaluator: Randal Alejandre MD Basophils/100 WBC (Bld) 0.5 % Normal [facility] Comment on above: Performed By: #### 6 399, 809 #### [facility] [place] [address] Analysis Evaluator: Randal Alejandre MD Eosinophils (Bld) [#/Vol] 0.171 10*3/uL Normal 15-500 [facility] Comment on above: Performed By: #### 6 399, 809 #### [facility] [place] [address] Analysis Evaluator: Randal Alejandre MD Eosinophils/100 WBC (Bld) 3.0 % Normal [facility] Comment on above: Performed By: #### 6 399, 809 #### [facility] [place] [address] Analysis Evaluator: Randal Alejandre MD Erythrocyte distribution width (RBC) [Ratio] 13.0 % Normal 11.0-15.0 [facility] Comment on above: Performed By: #### 6 399, 809 #### [facility] of [place] [address] Analysis Evaluator: Randal Alejandre MD Hematocrit (Bld) [Volume fraction] 47.2 % Normal 38.5-50.0 [facility] Comment on above: Performed By: #### 6 399, 809 #### [facility] [place] [address] Analysis Evaluator: Randal Alejandre MD Hemoglobin (Bld) [Mass/Vol] 15.2 g/dL Normal 13.2-17.1 [facility] Comment on above: Performed By: #### 6 399, 809 #### [facility] [place] [address] Analysis Evaluator: Randal Alejandre MD Lymphocytes (Bld) [#/Vol] 0.918 10*3/uL Normal 850-3900 [facility] Comment on above: Performed By: #### 6 399, 809 #### [facility] of [place] [address] Analysis Evaluator: Randal Alejandre MD Lymphocytes/100 WBC (Bld) 16.1 % Normal [facility] Comment on above: Performed By: #### 6 399, 809 #### [facility] of [place] [address] Analysis Evaluator: Randal Alejandre MD MCH (RBC) [Entitic mass] 28.1 pg Normal 27.0-33.0 [facility] Comment on above: Performed By: #### 6 399, 809 #### [facility] of [place] [address] Analysis Evaluator: Randal Alejandre MD MCHC (RBC) [Mass/Vol] 32.2 g/dL Normal 32.0-36.0 [facility] Comment on above: Result Comment: For adults, a slight decrease in the calculated MCHC value (in the range of 30 to 32 g/dL) is most likely not clinically significant; however, it should be interpreted with caution in correlation with other red cell parameters and the patient's clinical condition. Performed By: #### 6 399, 809 #### [facility] of [address], [address] [place] [address] Analysis Evaluator: Randal Alejandre MD MCV (RBC) [Entitic vol] 87.2 fL Normal 80.0-100.0 [facility] Comment on above: Performed By: #### 6 399, 809 #### [facility] of [address], [address] [place] [address] Analysis Evaluator: Randal Alejandre MD Monocytes (Bld) [#/Vol] 0.45 10*3/uL Normal 200-950 [facility] Comment on above: Performed By: #### 6 399, 809 #### [facility] of [place] [address] Analysis Evaluator: Randal Alejandre MD Monocytes/100 WBC (Bld) 7.9 % Normal [facility] Comment on above: Performed By: #### 6 399, 809 #### [facility] of [place] [address] Analysis Evaluator: Randal Alejandre MD Neutrophils (Bld) [#/Vol] 4.133 10*3/uL Normal 5312-7734 [facility] Comment on above: Performed By: #### 6 399, 809 #### [facility] of [place] [address] Analysis Evaluator: Randal Alejandre MD Neutrophils/100 WBC (Bld) 72.5 % Normal [facility] Comment on above: Performed By: #### 6 399, 809 #### [facility] of [address], [address] [place] [address] Analysis Evaluator: Randal Alejandre MD Platelet mean volume (Bld) [Entitic vol] 10.8 fL Normal 7.5-12.5 [facility] Comment on above: Performed By: #### 6 399, 809 #### [facility] of [place] [address] Analysis Evaluator: Randal Alejandre MD Platelets (Bld) [#/Vol] 176 10*3/uL Normal 140-400 [facility] Comment on above: Performed By: #### 6 399, 809 #### [facility] [place] [address] Analysis Evaluator: Randal Alejandre MD RBC (Bld) [#/Vol] 5.41 10*6/uL Normal 4.20-5.80 [facility] Comment on above: Performed By: #### 6 399, 809 #### [facility] [address], [address] [place] [address] Analysis Evaluator: Randal Alejandre MD WBC (Bld) [#/Vol] 5.7 10*3/uL Normal 3.8-10.8 [facility] Comment on above: Performed By: #### 6 399, 809 #### [facility] [place] [address] Analysis Evaluator: Randal Alejandre MD SED RATE BY MODIFIED WESTERG RENon 12-09-2024 SED RATE BY MODIFIED WESTERGREN 2 mm/h Normal < OR = 20 [facility] Comment on above: Performed By: #### 6 399, 809 #### [facility] [place] [address] Analysis Evaluator: Randal Alejandre MD Blood type and Indirect anti body screen panel (Bld)on 11-18-2024 ABO and Rh group Nom (Bld) Blood group O Rh(D) positive [facility] Blood group antibody screen Ql Negative [facility] Specimen Expires 11/21/2024 23:59 EST [facility] [place] INR Coag (PPP) [Relative johnny e]on 11-18-2024 Interpretation and review of laboratory results Normal [facility] PT Coag (PPP) [Time] 13.5 s [facility] During the induction phase of oral anticoagulation, the INR may not reflect the anticoagulation status of the patient. 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 He has been interrogated by a patient portal representative from [employer] and noted to have multiple faults. Because [...] anchor boots that had been left previously. [place] boots were freed from anchor sutures, and [...] to cephalad (more content not included)... Normal [facility] PT/INRon 11-18-2024 INR Coag (PPP) [Relative time] 1 {INR} 0.8 - 1.1 [facility] INR Coag (PPP) [Relative time] 1.0 {INR} Normal 0.8-1.1 [facility] Comment on above: Order Comment: [facility] has implemented the eGFR calculation approach that does not have a coefficient for race that conforms to the NKF-ASN Task Force Recommendations. Performed By: #### 4 6124 #### LAB [address] [place], [place] [address] Jeffrey Kohli M.D. [id number] PT Coag (PPP) [Time] 13.5 s Normal 11.8-14.3 [facility] Comment on above: Order Comment: [facility] has implemented the eGFR calculation approach that does not have a coefficient for race that conforms to the NKF-ASN Task Force Recommendations. Performed By: #### 4 6124 #### [facility] [address] [place], [place] [address] Jeffrey Kohli M.D. [id number] TYPE AND SCREENon 11-18-2024 TYPE AND SCREEN ABORH: O Positive AB SCREEN: Negative EXPIRATION DATE: 11/21/2024 23:59 EST Normal [facility] XR OR T-SPINE 2 VIEWSon XR OR [...] Please see operative report for further details. [facility] Workstation ID: [id number] Dictated by: SONAM SELF on FriNov 22, 2024 9:51:50 AM EST Transcribed by: MEAGAN URBAN on FriNov 22, 2024 10:50:51 AM EST Finalized by: SONAM SELF on FriNov 22, 2024 1:07:55 PM EST Normal [facility] Comment on above: Order Comment: [facility] has implemented the eGFR calculation approach that does not have a coefficient for race that conforms to the NKF-ASN Task Force Recommendations. BASIC METABOLIC PANELon 10-13 Anion gap [Moles/Vol] 12 mmol/L Normal 10-20 [facility] Comment on above: Order Comment: [facility] has implemented the eGFR calculation approach that does not have a coefficient for race that conforms to the NKF-ASN Task Force Recommendations. Performed By: #### 4 6124 #### [facility] [address] [place] [address] Jeffrey Kohli M.D. [id number] Calcium [Mass/Vol] 9.0 mg/dL Normal 8.4-10.[address] [facility] Comment on above: Order Comment: [facility] has implemented the eGFR calculation approach that does not have a coefficient for race that conforms to the NKF-ASN Task Force Recommendations. Performed By: #### 4 6124 #### [facility] [address] [place] [address] Jeffrey Kohli M.D. [id number] Chloride [Moles/Vol] 106 mmol/L Normal 98-108 [facility] Comment on above: Order Comment: [facility] has implemented the eGFR calculation approach that does not have a coefficient for race that conforms to the NKF-ASN Task Force Recommendations. Performed By: #### 4 6124 #### [facility] [address] [place] [address] Jeffrey Kohli M.D. [id number] Creatinine [Mass/Vol] 1.05 mg/dL Normal 0.80-1.30 [facility] Comment on above: Order Comment: [facility] has implemented the eGFR calculation approach that does not have a coefficient for race that conforms to the NKF-ASN Task Force Recommendations. Performed By: #### 4 6124 #### [facility] [address] [place] [address] Jeffrey Kohli M.D. [id number] EGFR 76 mL/min/1.73 m2 Normal >=60 [facility] Comment on above: Order Comment: [facility] has implemented the eGFR calculation approach that does not have a coefficient for race that conforms to the NKF-ASN Task Force Recommendations. Result Comment: Katty mated GFR was calculated using the 2020 CKD-EPI creatinine equation. Performed By: #### 4 6124 #### [facility] [address] [place] [address] Jeffrey Kohli M.D. [id number] Glucose [Mass/Vol] 84 mg/dL Normal 65-[address] [facility] Comment on above: Order Comment: [facility] has implemented the eGFR calculation approach that does not have a coefficient for race that conforms to the NKF-ASN Task Force Recommendations. Performed By: #### 4 6124 #### [facility] [address] [place] [id number] Jeffrey Kohli M.D. [id number] HCO3 (Bld) [Moles/Vol] 28 mmol/L Normal 21-32 [facility] Comment on above: Order Comment: [facility] has implemented the eGFR calculation approach that does not have a coefficient for race that conforms to the NKF-ASN Task Force Recommendations. Performed By: #### 4 6124 #### [facility] [address] [place] [address] Jeffrey Kohli M.D. [id number] Potassium [Moles/Vol] 4.6 mmol/L Normal 3.5-5.1 [facility] Comment on above: Order Comment: [facility] has implemented the eGFR calculation approach that does not have a coefficient for race that conforms to the NKF-ASN Task Force Recommendations. Performed By: #### 4 6124 #### [facility] [address] [place] [address] Jeffrey Kohli M.D. [id number] Sodium [Moles/Vol] 141 mmol/L Normal 135-[address] [facility] Comment on above: Order Comment: [facility] has implemented the eGFR calculation approach that does not have a coefficient for race that conforms to the NKF-ASN Task Force Recommendations. Performed By: #### 4 6124 #### [facility] [address] [place] [address] Jeffrey Kohli M.D. [id number] Urea nitrogen [Mass/Vol] 16 mg/dL Normal 8-25 [facility] Comment on above: Order Comment: [facility] has implemented the eGFR calculation approach that does not have a coefficient for race that conforms to the NKF-ASN Task Force Recommendations. Performed By: #### 4 6124 #### [facility] [address] [place] [address] Jeffrey Kohli M.D. [id number] Urea nitrogen/Creatinine [Mass ratio] 15.2 mg/mg Normal 10.0-20.0 [facility] Comment on above: Order Comment: [facility] has implemented the eGFR calculation approach that does not have a coefficient for race that conforms to the NKF-ASN Task Force Recommendations. Performed By: #### 4 6124 #### [facility] [address] [place] [address] Jeffrey Kohli M.D. [id number] CBCon 10-28-2024 AUTO NRBC 0.0 % Normal [facility] Comment on above: Performed By: #### 4 5218 #### LAB [address] [place], [place] [address] Jeffrey Kohli M.D. [id number] AUTO NRBC ABS COUNT 0.00 K/mcL Normal 0.00-0.00 [facility] Comment on above: Performed By: #### 4 5218 #### LAB [address] [place] [id number] Jeffrey Kohli M.D. [id number] Erythrocyte distribution width (RBC) [Ratio] 13.2 % Normal 11.6-14.8 [facility] Comment on above: Performed By: #### 4 5218 #### [facility] [address] [place] [address] Jeffrey Kohli M.D. [id number] Hematocrit (Bld) [Volume fraction] 45.7 % Normal 41.0-53.0 [facility] Comment on above: Performed By: #### 4 5218 #### [facility] [address] [place] [address] Jeffrey Kohli M.D. [id number] Hemoglobin (Bld) [Mass/Vol] 14.6 g/dL Normal 13.5-17.5 [facility] Comment on above: Performed By: #### 4 5218 #### [facility] [address] [place] [address] Jeffrey Kohli M.D. [id number] MCH (RBC) [Entitic mass] 27.9 pg Normal 26.0-34.0 [facility] Comment on above: Performed By: #### 4 5218 #### [facility] [address] [place] [address] Jeffrey Kohli M.D. [id number] MCV (RBC) [Entitic vol] 87.4 fL Normal 80.0-100.0 [facility] Comment on above: Performed By: #### 4 5218 #### [facility] [address] [place] [address] Jeffrey Kohli M.D. [id number] MEAN CORPUSCULAR HEMOGLOBIN CONC 31.9 g/dL Normal 31.0-37.0 [facility] Comment on above: Performed By: #### 4 5218 #### [facility] [address] [place] [address] Jeffrey Kohli M.D. [id number] Platelet mean volume (Bld) [Entitic vol] 10.2 fL Normal 9.4-12.4 [facility] Comment on above: Performed By: #### 4 5218 #### [facility] [address] [place] [address] Jeffrey Kohli M.D. [id number] Platelets (Bld) [#/Vol] 150 10*3/uL Normal 150-400 [facility] Comment on above: Performed By: #### 4 5218 #### LAB [address] [place], [place] [address] Jeffrey Kohli M.D. [id number] RBC (Bld) [#/Vol] 5.23 10*6/uL Normal 4.50-5.90 [facility] Comment on above: Performed By: #### 4 5218 #### LAB [address] [place], [place] [address] Jeffrey Kohli M.D. [id number] WBC (Bld) [#/Vol] 5.13 10*3/uL Normal 4.50-11.00 [facility] Comment on above: Performed By: #### 4 5218 #### LAB [address] [place], [place] [address] Jeffrey Kohli M.D. [id number] MRSA CULTURE/SCREENon 2024 MRSA CULTURE/SCREEN MRSA CULTURE No Methicillin Resistant Staphylococcus (MRSA) Isolated [facility] Comment on above: Performed By: #### 4 4185 #### [facility] [place] [address] Vishal Morrell M.D. [id number] TYPE AND SCREENon 10-28-2024 TYPE AND SCREEN ABORH: O Positive AB SCREEN: Negative EXPIRATION DATE: 11/18/2024 23:59 EST Normal [facility] XR CHEST AP/PA AND LATon XR CHEST [...] FriOct 28, 2024 4:39:10 PM EST Normal [facility] Comment on above: Order Comment: Injur y/Trauma or Illness?:Illness/Other How long have you had these symptoms (acute/chronic)?:Acute Reason for exam?:pre-op History of cancer?:. Surgeries, chemotherapy, or radiation?:. Type of Exam?:Initial Additional signs and symptoms?:. Spine Thoracic without Contr ason 10-05-2024 Spine Thoracic without Contras [facility] [address] [place], [place] [address] Spine Thoracic without Contras MR#: [id number] Acct: [id number] Name: TAMRA GUZMAN Rep #: [id number] : 1955 M 69 From: Haider Beatty MD PCP: Dr. Mike Aburto MD Status: REG CLI Study: Spine Thoracic without Contras Date of Exam: 12/06/23 Exam# [id number] Ordering Dr: Ahmet Frances PA-C [id number] INDICATION: mid-back pain, neuro deficit EXAMINATION: CT [...] Signed: Haider Beatty MD at 0:43 EST , CC: CHANDNI Frances; Dr. Mike Aburto MD Rubber Splicer: Signed Normal [facility] Spine Lumbar without Contras ton 09-03-2024 Spine Lumbar without Contrast [facility] Services [address] [place], [place] [address] Spine Lumbar without Contrast MR#: [id number] Acct: [id number] Name: TAMRA GUZMAN Rep #: [id number] : 1955 M 69 From: Peterjames garay PCP: Dr. Mike Aburto MD Status: REG CLI Study: Spine Lumbar without Contrast Date of Exam: Exam# [id number] Ordering Dr: Mike Aburto MD [id number] EXAM: CT LUMBAR SPINE WITHOUT INTRAVENOUS CONTRAST [...] FINDINGS: VERTEBRAE: Multilevel facet and endplate osteophytosis. [place] left lower thoracic and apex right lumbar spinal curvatures are present. Degenerative anterolisthesis, grade 1 at L4-L5. No fracture. No discrete lytic or blastic abnormality. DISCS/SPINAL CANAL/NEURAL FORAMINA: Mild to moderate multilevel lumbar spinal canal stenosis and [id number] multilevel lumbar neural foraminal narrowing, perhaps severe [...] staggered at the level of T7. 3. [place] left lower thoracic and apex right lumbar spinal curvatures are present. 4. Bilateral nonobstructive nephrolithiasis. Electronically Signed: Peter Estrella DO at 11:41 EST , CC: Dr. Mike Aburto MD Rubber Splicer: Signed Normal [facility] CBC W/Diff, Automatedon 08-13 Absolute Lymph 0.97 X10 3/uL Normal 0.83-4.51 [facility] Comment on above: Performed By: #### L 500.4100, L500.3400 #### [facility] [address] [place], [place], [id number] Absolute Neut 4.6 X10 3/uL Normal 2.0-7.7 [facility] Comment on above: Performed By: #### L 500.4100, L500.3400 #### [facility] [address] [place], [address] Basophils/100 WBC (Bld) 0.5 % Normal 0-1 [facility] Comment on above: Performed By: #### L 500.4100, L500.3400 #### [facility] [address] [place], [address] Eosinophils/100 WBC (Bld) 3.9 % Normal 0-5 [facility] Comment on above: Performed By: #### L 500.4100, L500.3400 #### [facility] [address] [place], [address] Erythrocyte distribution width (RBC) [Ratio] 13.0 % Normal 11.6-14.6 [facility] Comment on above: Performed By: #### L 500.4100, L500.3400 #### [facility] [address] [place], [address] Hematocrit (Bld) [Volume fraction] 45.0 % Normal 40-54 [facility] Comment on above: Performed By: #### L 500.4100, L500.3400 #### [facility] [address] [place], [address] Hemoglobin (Bld) [Mass/Vol] 14.3 g/dL Normal 13.0-16.5 [facility] Comment on above: Performed By: #### L 500.4100, L500.3400 #### [facility] [address] [place], [address] IG% 0.300 Normal 0.0-0.9 [facility] Comment on above: Result Comment: IG% - Immature Granulocytes (promyelocytes, myelocytes and metamyelocytes) > 1% indicates that a LEFT SHIFT is Present. Performed By: #### L 500.4100, L500.3400 #### [facility] [address] [place], [address] Lymphocytes/100 WBC (Bld) 15.1 % Low 19-41 [facility] Comment on above: Performed By: #### L 500.4100, L500.3400 #### [facility] [address] [place], [address] MCH (RBC) [Entitic mass] 27.7 pg Normal 27.0-32.0 [facility] Comment on above: Performed By: #### L 500.4100, L500.3400 #### [facility] [address] [place], [address] MCHC (RBC) [Mass/Vol] 31.8 g/dL Low 32-36 [facility] Comment on above: Performed By: #### L 500.4100, L500.3400 #### [facility] [address] [place], [address] MCV (RBC) [Entitic vol] 87.0 fL Normal 80-94 [facility] Comment on above: Performed By: #### L 500.4100, L500.3400 #### [facility] [address] [place], [address] Monocytes/100 WBC (Bld) 9.0 % Normal 0-10 [facility] Comment on above: Performed By: #### L 500.4100, L500.3400 #### [facility] [address] [place], [address] Neutrophils/100 WBC (Bld) 71.2 % High 47-70 [facility] Comment on above: Performed By: #### L 500.4100, L500.3400 #### [facility] [address] [place], [address] Nucleated RBC (Bld) [#/Vol] 0 10*3/uL Normal 0-5 [facility] Comment on above: Performed By: #### L 500.4100, L500.3400 #### [facility] [address] [place], [address] Platelet mean volume (Bld) [Entitic vol] 10.1 fL Normal 6.2-12.0 [facility] Comment on above: Performed By: #### L 500.4100, L500.3400 #### [facility] [address] [place], [address] Platelets (Bld) [#/Vol] 161 10*3/uL Normal 150-450 [facility] Comment on above: Performed By: #### L 500.4100, L500.3400 #### [facility] [address] [place], [address] RBC (Bld) [#/Vol] 5.17 10*6/uL Normal 4.6-6.2 [facility] Comment on above: Performed By: #### L 500.4100, L500.3400 #### [facility] [address] [place], [address] RDW SD 41.4 fl Normal 35.1-43.9 [facility] Comment on above: Performed By: #### L 500.4100, L500.3400 #### [facility] [address] [place], [address] WBC (Bld) [#/Vol] 6.4 10*3/uL Normal 4.4-11.0 [facility] Comment on above: Performed By: #### L 500.4100, L500.3400 #### [facility] [address] [place], [address] Comprehensive Metabolic Prof [facility] 08-23-2024 Albumin [Mass/Vol] 3.6 g/dL Normal 3.2-5.0 [facility] Comment on above: Performed By: #### L 500.4100, L500.3400 #### [facility] [address] [place], [address] Albumin/Globulin [Mass ratio] 1.3 {ratio} Normal 0.9-2.4 [facility] Comment on above: Performed By: #### L 500.4100, L500.3400 #### [facility] [address] [place], [address] ALK P 92 U/L Normal 45-117 [facility] Comment on above: Performed By: #### L 500.4100, L500.3400 #### [facility] [address] [place], [address] ALT [Catalytic activity/Vol] 29 U/L Normal 16-61 [facility] Comment on above: Performed By: #### L 500.4100, L500.3400 #### [facility] [address] [place], [address] AST [Catalytic activity/Vol] 31 U/L Normal 15-37 [facility] Comment on above: Performed By: #### L 500.4100, L500.3400 #### [facility] [address] [place], [address] Bilirubin [Mass/Vol] 0.80 mg/dL Normal 0.20-1.00 [facility] Comment on above: Result Comment: For patients on eltrombopag therapy, use of Dimension [place] TBIL is not recommended. Performed By: #### L 500.4100, L500.3400 #### [facility] [address] [place], [address] BUN/CRE 15.6 RATIO Normal 10-20 [facility] Comment on above: Performed By: #### L 500.4100, L500.3400 #### [facility] [address] [place], [address] CA,Total 9.0 mg/dL Normal 8.5-10.1 [facility] Comment on above: Performed By: #### L 500.4100, L500.3400 #### [facility] [address] [place], [address] Chloride [Moles/Vol] 108 mmol/L High 98-107 [facility] Comment on above: Performed By: #### L 500.4100, L500.3400 #### [facility] [address] [place], [address] CO2 [Moles/Vol] 31.0 mmol/L Normal 21.0-32.0 [facility] Comment on above: Performed By: #### L 500.4100, L500.3400 #### [facility] [address] [place], [address] Creatinine [Mass/Vol] 1.09 mg/dL Normal 0.70-1.30 [facility] Comment on above: Result Comment: The validity of the calculated GFR GFRAA in patients over 70 years has not been determined. Clinical correlation is essential. Performed By: #### L 500.4100, L500.3400 #### [facility] [address] [place], [address] EST GFR - AA 86 mL/min Normal >60 [facility] Comment on above: Result Comment: Afri can [place] GFR Calc Performed By: #### L 500.4100, L500.3400 #### [facility] [address] [place], [address] GAP 3 Low 5-15 [facility] Comment on above: Performed By: #### L 500.4100, L500.3400 #### [facility] [address] [place], [address] GFR/1.73 sq M.predicted among non-blacks MDRD (S/P/Bld) [Vol rate/Area] 71 mL/min/{1.73_m2} Normal >60 [facility] Comment on above: Result Comment: Non- GFR Calc Performed By: #### L 500.4100, L500.3400 #### [facility] [address] [place], [address] Globulin (S) [Mass/Vol] 2.8 g/dL Normal 2.2-4.2 [facility] Comment on above: Performed By: #### L 500.4100, L500.3400 #### [facility] [address] [place], [address] Glucose [Mass/Vol] 84 mg/dL Normal 74-106 [facility] Comment on above: Performed By: #### L 500.4100, L500.3400 #### [facility] [address] [place], [address] Potassium [Moles/Vol] 4.3 mmol/L Normal 3.5-5.1 [facility] Comment on above: Performed By: #### L 500.4100, L500.3400 #### [facility] [address] [place], [address] Sodium [Moles/Vol] 142 mmol/L Normal 136-145 [facility] Comment on above: Performed By: #### L 500.4100, L500.3400 #### [facility] [address] [place], [address] T PROT 6.4 g/dL Normal 6.4-8.2 [facility] Comment on above: Performed By: #### L 500.4100, L500.3400 #### [facility] [address] [place], [address] Urea nitrogen [Mass/Vol] 17 mg/dL Normal 7-18 [facility] Comment on above: Performed By: #### L 500.4100, L500.3400 #### [facility] [address] [place], [address] Thyroid Stim Hormone (TSH)on 08-23-2024 TSH 1.040 uIU/mL Normal 0.358-3.74 0 [facility] Comment on above: Performed By: #### L 500.4100, L500.3400 #### [facility] [address] [place], [address] Vitamin D,25 Hydroxyon 08-23 Vitamin D 25-OH 31.3 ng/mL Normal [facility] Comment on above: Result Comment: Felecia min D 25(OH) Status Range Deficiency <20 ng/mL (50nmol/L) Insufficiency 20 - 30 ng/mL (50 - 75 nmol/L) Sufficiency 30 - 100 ng/mL (75 - 250 nmol/L) Toxicity >100 ng/mL (>250 nmol/L) Performed By: #### L 500.4100, L500.3400 #### [facility] [address] [place], [place], [address] Venous Duplex US, Unilateral on 08-04-2024 Venous Duplex US, Unilateral [facility] [address] [place] [address] Venous Duplex US, Unilateral 08/04/24 1309 MR#: [id number] Acct: [id number] Name: TAMRA GUZMAN Rep #: [id number] : [id number] 69 From: Peng Ballesteros MD [...] By: Roberto Carpio RVT and Student ??? 08/04/24 1530 Date Peng Ballesteros MD CC: Dr. Mike Aburto MD Date Dictated: 08/04/24 1309 Date Transcribed: 08/04/24 1530 Rubber Splicer: Signed Normal [facility] CBC W/Diff, Automatedon 07-13 Absolute Lymph 1.05 X10 3/uL Normal 0.83-4.51 [facility] Comment on above: Order Comment: CARLOZ Cordova FAX TO [id number] Performed By: #### L 500.0871, J159.3409 #### [facility] [address] [place], [place], [address] Absolute Neut 3.0 X10 3/uL Normal 2.0-7.7 [facility] Comment on above: Order Comment: CARLOZ E FAX TO [id number] Performed By: #### L 500.4100, E356.3409 #### [facility] [address] [place], [place], [address] Basophils/100 WBC (Bld) 0.6 % Normal 0-1 [facility] Comment on above: Order Comment: PLEAS E FAX TO [id number] Performed By: #### L 500.4100, L500.3400 #### [facility] [address] [place], [address] Eosinophils/100 WBC (Bld) 3.8 % Normal 0-5 [facility] Comment on above: Order Comment: PLEAS E FAX TO [id number] Performed By: #### L 500.4100, L500.3400 #### [facility] [address] [place], [address] Erythrocyte distribution width (RBC) [Ratio] 12.9 % Normal 11.6-14.6 [facility] Comment on above: Order Comment: PLEAS E FAX TO [id number] Performed By: #### L 500.4100, L500.3400 #### [facility] [address] [place], [address] Hematocrit (Bld) [Volume fraction] 44.7 % Normal 40-54 [facility] Comment on above: Order Comment: PLEAS E FAX TO [id number] Performed By: #### L 500.4100, L500.3400 #### [facility] [address] [place], [address] Hemoglobin (Bld) [Mass/Vol] 14.3 g/dL Normal 13.0-16.5 [facility] Comment on above: Order Comment: PLEAS E FAX TO [phone] Performed By: #### L 500.4100, L500.3400 #### [facility] [address] [place], [address] IG% 0.200 Normal 0.0-0.9 [facility] Comment on above: Order Comment: PLEAS E FAX TO [id number] Result Comment: IG% - Immature Granulocytes (promyelocytes, myelocytes and metamyelocytes) > 1% indicates that a LEFT SHIFT is Present. Performed By: #### L 500.4100, L500.3400 #### [facility] [address] [place], [address] Lymphocytes/100 WBC (Bld) 22.4 % Normal 19-41 [facility] Comment on above: Order Comment: PLEAS E FAX TO [id number] Performed By: #### L 500.4100, L500.3400 #### [facility] [address] [place], [address] MCH (RBC) [Entitic mass] 27.9 pg Normal 27.0-32.0 [facility] Comment on above: Order Comment: PLEAS E FAX TO [id number] Performed By: #### L 500.4100, L500.3400 #### [facility] [address] [place], [address] MCHC (RBC) [Mass/Vol] 32.0 g/dL Normal 32-36 [facility] Comment on above: Order Comment: PLEAS E FAX TO [id number] Performed By: #### L 500.4100, L500.3400 #### [facility] [address] [place], [address] MCV (RBC) [Entitic vol] 87.1 fL Normal 80-94 [facility] Comment on above: Order Comment: PLEAS E FAX TO [id number] Performed By: #### L 500.4100, L500.3400 #### [facility] [address] [place], [address] Monocytes/100 WBC (Bld) 9.6 % Normal 0-10 [facility] Comment on above: Order Comment: PLEAS E FAX TO [id number] Performed By: #### L 500.4100, L500.3400 #### [facility] [address] [place], [address] Neutrophils/100 WBC (Bld) 63.4 % Normal 47-70 [facility] Comment on above: Order Comment: PLEAS E FAX TO [id number] Performed By: #### L 500.4100, L500.3400 #### [facility] [address] [place], [address] Nucleated RBC (Bld) [#/Vol] 0 10*3/uL Normal 0-5 [facility] Comment on above: Order Comment: PLEAS E FAX TO [id number] Performed By: #### L 500.4100, L500.3400 #### [facility] [address] [place], [address] Platelet mean volume (Bld) [Entitic vol] 9.9 fL Normal 6.2-12.0 [facility] Comment on above: Order Comment: PLEAS E FAX TO [id number] Performed By: #### L 500.4100, L500.3400 #### [facility] [address] [place], [address] Platelets (Bld) [#/Vol] 132 10*3/uL Low 150-450 [facility] Comment on above: Order Comment: PLEAS E FAX TO [id number] Performed By: #### L 500.4100, L500.3400 #### [facility] [address] [place], [address] RBC (Bld) [#/Vol] 5.13 10*6/uL Normal 4.6-6.2 [facility] Comment on above: Order Comment: PLEAS E FAX TO [id number] Performed By: #### L 500.4100, L500.3400 #### [facility] [address] [place], [address] RDW SD 40.8 fl Normal 35.1-43.9 [facility] Comment on above: Order Comment: PLEAS E FAX TO [id number] Performed By: #### L 500.4100, L500.3400 #### [facility] [address] [place], [address] WBC (Bld) [#/Vol] 4.7 10*3/uL Normal 4.4-11.0 [facility] Comment on above: Order Comment: CARLOZ Cordova FAX TO [id number] Performed By: #### L 500.4100, L500.3400 #### [facility] [address] [place], [address] CBC W/Diff, Automatedon 06-13 Absolute Lymph 1.17 X10 3/uL Normal 0.83-4.51 [facility] Comment on above: Order Comment: LIVER LIPID FOR DR PRECIADO CBCD FOR DR BASS Performed By: #### L 500.3400, L500.4100, L100.0100 #### [facility] [address] [place], [address] Absolute Neut 2.6 X10 3/uL Normal 2.0-7.7 [facility] Comment on above: Order Comment: LIVER LIPID FOR DR PRECIADO CBCD FOR DR BASS Performed By: #### L 500.3400, L500.4100, L100.0100 #### [facility] [address] [place], [address] Basophils/100 WBC (Bld) 0.9 % Normal 0-1 [facility] Comment on above: Order Comment: LIVER LIPID FOR DR PRECIADO CBCD FOR DR BASS Performed By: #### L 500.3400, L500.4100, L100.0100 #### [facility] [address] [place], [address] Eosinophils/100 WBC (Bld) 3.0 % Normal 0-5 [facility] Comment on above: Order Comment: LIVER LIPID FOR DR PRECIADO CBCD FOR DR BASS Performed By: #### L 500.3400, L500.4100, L100.0100 #### [facility] [address] [place], [address] Erythrocyte distribution width (RBC) [Ratio] 13.2 % Normal 11.6-14.6 [facility] Comment on above: Order Comment: LIVER LIPID FOR DR PRECIADO CBCD FOR DR BASS Performed By: #### L 500.3400, L500.4100, L100.0100 #### [facility] [address] [place], [address] Hematocrit (Bld) [Volume fraction] 41.9 % Normal 40-54 [facility] Comment on above: Order Comment: LIVER LIPID FOR DR PRECIADO CBCD FOR DR BASS Performed By: #### L 500.3400, L500.4100, L100.0100 #### [facility] [address] [place], [address] Hemoglobin (Bld) [Mass/Vol] 13.5 g/dL Normal 13.0-16.5 [facility] Comment on above: Order Comment: LIVER LIPID FOR DR PRECIAOD CBCD FOR DR BASS Performed By: #### L 500.3400, L500.4100, L100.0100 #### [facility] [address] [place], [address] IG% 0.200 Normal 0.0-0.9 [facility] Comment on above: Order Comment: LIVER LIPID FOR DR PRECIADO CBCD FOR DR BASS Result Comment: IG% - Immature Granulocytes (promyelocytes, myelocytes and metamyelocytes) > 1% indicates that a LEFT SHIFT is Present. Performed By: #### L 500.3400, L500.4100, L100.0100 #### [facility] [address] [place], [address] Lymphocytes/100 WBC (Bld) 26.8 % Normal 19-41 [facility] Comment on above: Order Comment: LIVER LIPID FOR DR PRECIADO CBCD FOR DR BASS Performed By: #### L 500.3400, L500.4100, L100.0100 #### [facility] [address] [place], [address] MCH (RBC) [Entitic mass] 28.2 pg Normal 27.0-32.0 [facility] Comment on above: Order Comment: LIVER LIPID FOR DR PRECIADO CBCD FOR DR BASS Performed By: #### L 500.3400, L500.4100, L100.0100 #### [facility] [address] [place], [address] MCHC (RBC) [Mass/Vol] 32.2 g/dL Normal 32-36 [facility] Comment on above: Order Comment: LIVER LIPID FOR DR PRECIADO CBCD FOR DR BASS Performed By: #### L 500.3400, L500.4100, L100.0100 #### [facility] [address] [place], [address] MCV (RBC) [Entitic vol] 87.5 fL Normal 80-94 [facility] Comment on above: Order Comment: LIVER LIPID FOR DR PRECIADO CBCD FOR DR BASS Performed By: #### L 500.3400, L500.4100, L100.0100 #### [facility] [address] [place], [address] Monocytes/100 WBC (Bld) 9.9 % Normal 0-10 [facility] Comment on above: Order Comment: LIVER LIPID FOR DR PRECIADO CBCD FOR DR BASS Performed By: #### L 500.3400, L500.4100, L100.0100 #### [facility] [address] [place], [address] Neutrophils/100 WBC (Bld) 59.2 % Normal 47-70 [facility] Comment on above: Order Comment: LIVER LIPID FOR DR PRECIADO CBCD FOR DR BASS Performed By: #### L 500.3400, L500.4100, L100.0100 #### [facility] [address] [place], [address] Nucleated RBC (Bld) [#/Vol] 0 10*3/uL Normal 0-5 [facility] Comment on above: Order Comment: LIVER LIPID FOR DR PRECIADO CBCD FOR DR BASS Performed By: #### L 500.3400, L500.4100, L100.0100 #### [facility] [address] [place], [address] Platelet mean volume (Bld) [Entitic vol] 10.5 fL Normal 6.2-12.0 [facility] Comment on above: Order Comment: LIVER LIPID FOR DR PRECIADO CBCD FOR DR BASS Performed By: #### L 500.3400, L500.4100, L100.0100 #### [facility] [address] [place], [address] Platelets (Bld) [#/Vol] 110 10*3/uL Low 150-450 [facility] Comment on above: Order Comment: LIVER LIPID FOR DR PRECIADO CBCD FOR DR BASS Performed By: #### L 500.3400, L500.4100, L100.0100 #### [facility] [address] [place], [address] RBC (Bld) [#/Vol] 4.79 10*6/uL Normal 4.6-6.2 [facility] Comment on above: Order Comment: LIVER LIPID FOR DR PRECIADO CBCD FOR DR BASS Performed By: #### L 500.3400, L500.4100, L100.0100 #### [facility] [address] [place], [address] RDW SD 42.7 fl Normal 35.1-43.9 [facility] Comment on above: Order Comment: LIVER LIPID FOR DR PRECIADO CBCD FOR DR BASS Performed By: #### L 500.3400, L500.4100, L100.0100 #### [facility] [address] [place], [address] WBC (Bld) [#/Vol] 4.4 10*3/uL Normal 4.4-11.0 [facility] Comment on above: Order Comment: LIVER LIPID FOR DR PRECIADO CBCD FOR DR BASS Performed By: #### L 500.3400, L500.4100, L100.0100 #### [facility] [address] [place], [address] Lipid Profileon 06-23-2024 Cholesterol [Mass/Vol] 124 mg/dL Normal 200 [facility] Comment on above: Order Comment: LIVER LIPID FOR DR PRECIADO CBCD FOR DR BASS Result Comment: <200 mg/dL Desirable 200-240 mg/dL Borderline >240 mg/dL High Risk Performed By: #### L 500.3400, L500.4100, L100.0100 #### [facility] [address] [place], [address] Cholesterol in HDL [Mass/Vol] 75 mg/dL Normal [facility] Comment on above: Order Comment: LIVER LIPID FOR DR PRECIADO CBCD FOR DR BASS Result Comment: The drugs N-Acetylcysteine and Metamizole may falsely depress this assay. Reference Range HDL <40 mg/dL Low HDL Cholesterol HDL >or= 60 mg/dL High HDL Cholesterol Performed By: #### L 500.3400, L500.4100, L100.0100 #### [facility] [address] [place], [address] Cholesterol in LDL [Mass/Vol] 41 mg/dL Normal 0-130 [facility] Comment on above: Order Comment: LIVER LIPID FOR DR PRECIADO CBCD FOR DR BASS Performed By: #### L 500.3400, L500.4100, L100.0100 #### [facility] [address] [place], [address] Cholesterol in VLDL [Mass/Vol] 8 mg/dL Normal 5-40 [facility] Comment on above: Order Comment: LIVER LIPID FOR DR PRECIADO CBCD FOR DR BASS Performed By: #### L 500.3400, L500.4100, L100.0100 #### [facility] [address] [place], [address] Triglyceride [Mass/Vol] 39 mg/dL Normal [facility] Comment on above: Order Comment: LIVER LIPID FOR DR PRECIADO CBCD FOR DR BASS Result Comment: The drugs N-Acetylcysteine and Metamizole may falsely depress this assay. Serum Triglycerides Reference Interval Normal <150 mg/dL Borderline high 150 - 199 mg/dL High 200 - 499 mg/dL Very High > or = 500 mg/dL Performed By: #### L 500.3400, L500.4100, L100.0100 #### [facility] [address] [place], [address] Liver Profileon 06-23-2024 Albumin [Mass/Vol] 3.2 g/dL Normal 3.2-5.0 [facility] Comment on above: Order Comment: LIVER LIPID FOR DR PRECIADO CBCD FOR DR BASS Performed By: #### L 500.3400, L500.4100, L100.0100 #### [facility] [address] [place], [address] ALK P 79 U/L Normal 45-117 [facility] Comment on above: Order Comment: LIVER LIPID FOR DR PRECIADO CBCD FOR DR BASS Performed By: #### L 500.3400, L500.4100, L100.0100 #### [facility] [address] [place], [address] ALT [Catalytic activity/Vol] 21 U/L Normal 16-61 [facility] Comment on above: Order Comment: LIVER LIPID FOR DR PRECIADO CBCD FOR DR BASS Performed By: #### L 500.3400, L500.4100, L100.0100 #### [facility] [address] [place], [address] AST [Catalytic activity/Vol] 26 U/L Normal 15-37 [facility] Comment on above: Order Comment: LIVER LIPID FOR DR PRECIADO CBCD FOR DR BASS Performed By: #### L 500.3400, L500.4100, L100.0100 #### [facility] [address] [place], [address] Bilirubin [Mass/Vol] 0.60 mg/dL Normal 0.20-1.00 [facility] Comment on above: Order Comment: LIVER LIPID FOR DR PRECIADO CBCD FOR DR BASS Result Comment: For patients on eltrombopag therapy, use of Dimension [place] TBIL is not recommended. Performed By: #### L 500.3400, L500.4100, L100.0100 #### [facility] [address] [place], [address] Bilirubin.direct [Mass/Vol] 0.24 mg/dL Normal 0.00-0.30 [facility] Comment on above: Order Comment: LIVER LIPID FOR DR PRCEIADO CBCD FOR DR BASS Performed By: #### L 500.3400, L500.4100, L100.0100 #### [facility] [address] [place], [address] Globulin (S) [Mass/Vol] 2.7 g/dL Normal 2.2-4.2 [facility] Comment on above: Order Comment: LIVER LIPID FOR DR PRECIADO CBCD FOR DR BASS Performed By: #### L 500.3400, L500.4100, L100.0100 #### [facility] [address] [place], [address] T PROT 5.9 g/dL Low 6.4-8.2 [facility] Comment on above: Order Comment: LIVER LIPID FOR DR PRECIADO CBCD FOR DR AVANI Performed By: #### L 500.3400, L500.4100, L100.0100 #### [facility] [address] [place], [address] Basophil percentageOrdered B y: Rogelio Preciado on 11-26-2023 Bilirubin [Mass/Vol] 0.70 mg/dL 0.20-1.00 [facility] Comment on above: For patients on eltr ombopag therapy, use of Dimension [place] TBIL is not recommended. Cholesterol [Mass/Vol] 146 mg/dL <200 [facility] Comment on above: <200 mg/dL Desirable 200-240 mg/dL Borderline >240 mg/dL High Risk Protein [Mass/Vol] 6.4 g/dL 6.4-8.2 [facility] Triglyceride [Mass/Vol] 55 mg/dL <199 [facility] Comment on above: The drugs N-Acetylcy steine and Metamizole may falsely depress this assay.Serum Triglycerides Reference Interval Normal <150 mg/dL Borderline high 150 - 199 mg/dL High 200 - 499 mg/dL Very High > or = 500 mg/dL Direct bilirubinOrdered By: Rogelio Preciado on 11-26-2023 Bilirubin.direct [Mass/Vol] 0.21 mg/dL 0.00-0.30 [facility] - Chemistry and C hemistry - challengeOrdered By: Rogelio Preciado on 11-26-2023 ALP [Catalytic activity/Vol] 96 U/L 45-117 [facility] ALT [Catalytic activity/Vol] 20 U/L 16-61 [facility] Cholesterol in HDL [Mass/Vol] 66 mg/dL >40 [facility] Comment on above: The drugs N-Acetylcy steine and Metamizole may falsely depress this assay. Reference Range HDL <40 mg/dL Low HDL Cholesterol HDL >or= 60 mg/dL High HDL Cholesterol Cholesterol in LDL [Mass/Vol] 69 mg/dL 0-130 [facility] Globulin (S) [Mass/Vol] 3.1 g/dL 2.2-4.2 [facility] No Panel InformationOrdered By: Rogelio Preciado on 11-26-2023 VLDL Cholesterol 11 mg/dL 5-40 [facility] Thin prep Papanicolaou smear with manual screeningOrdered By: Rogelio Preciado on 11-26-2023 Thin prep Papanicolaou smear with manual screening 3.3 g/dL 3.2-5.0 [facility] Thin prep Papanicolaou smear with manual screening 23 U/L 15 [facility] No Panel InformationOrdered By: Mike Aburto on 11-06-2023 Miscellaneous Test See comment [facility] Comment on above: TEST RESULTS LIMITS APOE Alzheimer's RiskMethodology: Patient DNA is assayed for the APOE genotype by PCRamplification of a specific region in exon 4 of the APOEgene followed by digestion with restriction enzyme Repairing Calibrator Iand separation of fragments by polyacrylamide gelelectrophoresis. This approach allows the APOE E2, E3, andE4 alleles to be distinguished. Analytical sensitivity andspecificity are >99.5%. Individuals are interpreted ashaving one of the following genotypes: E2/E2, E3/E3, E4/E4,E2/E3, E2/E4, E3/E4.APO E Genotyping Result: E3/[id number]: Negative for the APOE4 variant that is [...] can be familial (15-20%) or sporadic. The [id number] increases the risk for late onset AD and maycontribute to the pathology of the disease. This risk isincreased by approximately 2 to 3-fold for individuals withone copy of the APOE4 variant and by approximately [id number] for individuals with two copies of this [...] with late onset AD, the presence of [id number] lead to earlier development of symptoms.However, APOE4 [...] was developed and its performance characteristicsdetermined by [employer]. It has not been cleared or approvedby the Food and Drug Administration. The FDA has determinedthat such clearance or approval is not necessary.REFERENCESAljena Morse et al. Sex modifies the APOE-related risk ofdeveloping Alzheimer disease. Annal [id number];75(4):563-573Bird TD. Alzheimer Disease Overview. GeneReviews(internet). Davonte CARVER et al., editors. [facility], [place], [place]. Last revised 2014.Kenia ZAVALETA et al. Genetic counseling and testing forAlzheimer disease: Joint practice guidelines of theIra Davenport Memorial Hospitalan College of Medical Genetics and the [facility] of Genetic Counselors. Ashley in [id number];[phone].Mitch GREEN. Apolipoprotein E: Implications for ADneurobiology, epidemiology and risk assessment.Neurobiology of Aging 2011;32:778-790 TESTING PERFORMED AT [facility]. ORIGINAL REPORT ON FILE IN LAB CONTAINS ADDITIONAL TEST SITE INFORMATION. Absolute lymphocyte countOrd ered By: Mitra Martinez on 11-03-2023 Lymphocytes Auto (Unsp spec) [#/Vol] 1.07 10*3/uL 0.83-4.51 [facility] Automated lymphocyte count a s percentage of total leukocytesOrdered By: Mitra Martinez on 11-03-2023 Lymphocytes/100 WBC Auto (Unsp spec) 18.1 % 19-41 [facility] Basophil percentageOrdered B y: Mitra Martinez on 11-03-2023 Basophils/100 WBC (Bld) 0.2 % 0-1 [facility] Bilirubin [Mass/Vol] 0.80 mg/dL 0.20-1.00 [facility] Comment on above: For patients on eltr ombopag therapy, use of Dimension [place] TBIL is not recommended. Chloride [Moles/Vol] 109 mmol/L 98-107 [facility] Eosinophils/100 WBC (Bld) 1.7 % 0-5 [facility] Glucose [Mass/Vol] 94 mg/dL 74-106 [facility] Hemoglobin (Bld) [Mass/Vol] 14.3 g/dL 13.0-16.5 [facility] Monocytes/100 WBC (Bld) 6.1 % 0-10 [facility] Neutrophils (Bld) [#/Vol] 4.4 10*3/uL 2.0-7.7 [facility] Neutrophils/100 WBC (Bld) 73.7 % 47-70 [facility] Potassium [Moles/Vol] 4.2 mmol/L 3.5-5.1 [facility] Protein [Mass/Vol] 6.0 g/dL 6.4-8.2 [facility] Sodium [Moles/Vol] 140 mmol/L 136-145 [facility] WBC (Bld) [#/Vol] 5.9 10*3/uL 4.4-11.0 [facility] Determination of erythrocyte mean corpuscular volume (MCV)Ordered By: Mitra Martinez on 11-03-2023 MCV (RBC) [Entitic vol] 86.8 fL 80-94 [facility] Erythrocyte distribution wid th ratioOrdered By: Mitra Martinez on 11-03-2023 Erythrocyte distribution width (RBC) [Ratio] 13.4 % 11.6-14.6 [facility] Erythrocyte distribution wid th standard deviationOrdered By: Mitra Martinez on 11-03-2023 Erythrocyte distribution width (RBC) [Entitic vol] 42.6 fL 35.1-43.9 [facility] Hematocrit Auto (Bld) [Volum e fraction]Ordered By: Mitra Martinez on 11-03-2023 Hematocrit (Bld) [Volume fraction] 44.9 % 40-54 [facility] Immature granulocytes/100 WB C Auto (Bld)Ordered By: Mitra Martinez on 11-03-2023 Immature granulocytes/100 WBC (Bld) 0.200 % 0.0-0.9 [facility] Comment on above: IG% - Immature Granu locytes (promyelocytes, myelocytes and metamyelocytes) > 1% indicates that a LEFT SHIFT is Present. Laboratory - Chemistry and C hemistry - challengeOrdered By: Mitra Martinez on 11-03-2023 Albumin/Globulin [Mass ratio] 1.1 {ratio} 0.9-2.4 [facility] ALP [Catalytic activity/Vol] 102 U/L 45-117 [facility] ALT [Catalytic activity/Vol] 19 U/L 16-61 [facility] CO2 [Moles/Vol] 28.0 mmol/L 21.0-32.0 [facility] Globulin (S) [Mass/Vol] 2.9 g/dL 2.2-4.2 [facility] Magnesium [Mass/Vol] 2.1 mg/dL 1.6-2.6 [facility] Urea nitrogen/Creatinine [Mass ratio] 14.5 mg/mg 10-20 [facility] - Hematology and Cell countsOrdered By: Mitra Martinez on 11-03-2023 MCH (RBC) [Entitic mass] 27.7 pg 27.0-32.0 [facility] MCHC (RBC) [Mass/Vol] 31.8 g/dL 32-36 [facility] Nucleated RBC/100 WBC (Bld) [Ratio] 0 % 0-5 [facility] Platelets (Bld) [#/Vol] 159 10*3/uL 150-450 [facility] No Panel InformationOrdered By: Mitra Martinez on 11-03-2023 Estimated Creatinine Clearance Calc 90.90 ml/min [facility] Estimated GFR (MDRD) Amer 118 mL/min >60 [facility] Comment on above: GFR Calc Estimated GFR (MDRD) Non-Af Amer 98 mL/min >60 [facility] Comment on above: Non- GFR Calc Platelet mean volume Fred-Ec ker (Bld) [Entitic vol]Ordered By: Mitra Martinez on 11-03-2023 Platelet mean volume (Bld) [Entitic vol] 9.5 fL 6.2-12.0 [facility] RBC Auto (Bld) [#/Vol]Ordere d By: Mitra Martinez on 11-03-2023 RBC (Bld) [#/Vol] 5.17 10*6/uL 4.6-6.2 [facility] Serum or plasma calcium mamie urement (mass/volume)Ordered By: Mitra Martinez on 11-03-2023 Calcium [Mass/Vol] 8.9 mg/dL 8.5-10.1 [facility] Serum or plasma creatinine m easurement (mass/volume)Ordered By: Mitra Martinez on 11-03-2023 Creatinine [Mass/Vol] 0.83 mg/dL 0.70-1.30 [facility] Comment on above: The validity of the calculated GFR & GFRAA in patients over 70 years has not been determined. Clinical correlation is essential. Serum or plasma thyroid stim ulating hormone (TSH) measurement (units/volume)Ordered By: iMtra Martinez on 11-03-2023 TSH Qn 0.39 uIU/mL 0.358-3.74 [facility] Serum or plasma urea nitroge n measurement (mass/volume)Ordered By: Mitra Martinez on 11-03-2023 Urea nitrogen [Mass/Vol] 12 mg/dL 7-18 [facility] Thin prep Papanicolaou smear with manual screeningOrdered By: Mitra Martinez on 11-03-2023 Thin prep Papanicolaou smear with manual screening 3.1 g/dL 3.2-5.0 [facility] Thin prep Papanicolaou smear with manual screening 18 U/L 15-37 [facility] Thin prep Papanicolaou smear with manual screening 3 5-15 [facility] Absolute lymphocyte countOrd ered By: Arik Cade on 11-02-2023 Lymphocytes Auto (Unsp spec) [#/Vol] 1.95 10*3/uL 0.83-4.51 [facility] Automated lymphocyte count a s percentage of total leukocytesOrdered By: Arik Cade on 11-02-2023 Lymphocytes/100 WBC Auto (Unsp spec) 27.7 % 19-41 [facility] Basophil percentageOrdered B y: Arik Cade on 11-02-2023 Basophils/100 WBC (Bld) 0.4 % 0-1 [facility] Chloride [Moles/Vol] 107 mmol/L 98-107 [facility] Eosinophils/100 WBC (Bld) 2.6 % 0-5 [facility] Glucose [Mass/Vol] 128 mg/dL 74-106 [facility] Comment on above: Fasting Glucose resu lt greater than or equal to 126 mg/dL suggests DIABETES MELLITUS per A.D.A. criteria. Hemoglobin (Bld) [Mass/Vol] 15.0 g/dL 13.0-16.5 [facility] Monocytes/100 WBC (Bld) 8.4 % 0-10 [facility] Neutrophils (Bld) [#/Vol] 4.3 10*3/uL 2.0-7.7 [facility] Neutrophils/100 WBC (Bld) 60.5 % 47-70 [facility] Potassium [Moles/Vol] 3.5 mmol/L 3.5-5.1 [facility] Sodium [Moles/Vol] 140 mmol/L 136-145 [facility] WBC (Bld) [#/Vol] 7.0 10*3/uL 4.4-11.0 [facility] Determination of erythrocyte mean corpuscular volume (MCV)Ordered By: Arik Cade on 11-02-2023 MCV (RBC) [Entitic vol] 86.5 fL 80-94 [facility] Erythrocyte distribution wid th ratioOrdered By: Arik Cade on 11-02-2023 Erythrocyte distribution width (RBC) [Ratio] 13.4 % 11.6-14.6 [facility] Erythrocyte distribution wid th standard deviationOrdered By: Arik Cade on 11-02-2023 Erythrocyte distribution width (RBC) [Entitic vol] 42.6 fL 35.1-43.9 [facility] Hematocrit Auto (Bld) [Volum e fraction]Ordered By: Arik Cade on 11-02-2023 Hematocrit (Bld) [Volume fraction] 45.4 % 40-54 [facility] Immature granulocytes/100 WB C Auto (Bld)Ordered By: Arik Cade on 11-02-2023 Immature granulocytes/100 WBC (Bld) 0.400 % 0.0-0.9 [facility] Comment on above: IG% - Immature Granu locytes (promyelocytes, myelocytes and metamyelocytes) > 1% indicates that a LEFT SHIFT is Present. Laboratory - Chemistry and C hemistry - challengeOrdered By: Arik Cade on 11-02-2023 CO2 [Moles/Vol] 25.0 mmol/L 21.0-32.0 [facility] Urea nitrogen/Creatinine [Mass ratio] 17.1 mg/mg 10-20 [facility] - Hematology and Cell countsOrdered By: Arik Cade on 11-02-2023 MCH (RBC) [Entitic mass] 28.6 pg 27.0-32.0 [facility] MCHC (RBC) [Mass/Vol] 33.0 g/dL 32-36 [facility] Nucleated RBC/100 WBC (Bld) [Ratio] 0 % 0-5 [facility] Platelets (Bld) [#/Vol] 189 10*3/uL 150-450 [facility] No Panel InformationOrdered By: Arik Cade on 11-02-2023 Estimated Creatinine Clearance Calc 80.26 ml/min [facility] Estimated GFR (MDRD) Amer 103 mL/min >60 [facility] Comment on above: GFR Calc Estimated GFR (MDRD) Non-Af Amer 85 mL/min >60 [facility] Comment on above: Non- GFR Calc Platelet mean volume Fred-Ec ker (Bld) [Entitic vol]Ordered By: Arik Cade on 11-02-2023 Platelet mean volume (Bld) [Entitic vol] 9.7 fL 6.2-12.0 [facility] RBC Auto (Bld) [#/Vol]Ordere d By: Arik Cade on 11-02-2023 RBC (Bld) [#/Vol] 5.25 10*6/uL 4.6-6.2 [facility] Serum or plasma calcium mamie urement (mass/volume)Ordered By: Arik Cade on 11-02-2023 Calcium [Mass/Vol] 8.9 mg/dL 8.5-10.1 [facility] Serum or plasma creatinine m easurement (mass/volume)Ordered By: Arik Cade on 11-02-2023 Creatinine [Mass/Vol] 0.94 mg/dL 0.70-1.30 [facility] Comment on above: The validity of the calculated GFR & GFRAA in patients over 70 years has not been determined. Clinical correlation is essential. Serum or plasma urea nitroge n measurement (mass/volume)Ordered By: Arik Cade on 11-02-2023 Urea nitrogen [Mass/Vol] 16 mg/dL 7-18 [facility] Thin prep Papanicolaou smear with manual screeningOrdered By: Arik Cdae on 11-02-2023 Thin prep Papanicolaou smear with manual screening 114 mg/dL 74-106 [facility] Comment on above: MANAGEMENT OF PATIEN T CARE PER NURSING PROTOCOL Thin prep Papanicolaou smear with manual screening 8 5-15 [facility] Absolute lymphocyte countOrd ered By: Mike Aburto on 08-20-2023 Lymphocytes Auto (Unsp spec) [#/Vol] 1.04 10*3/uL 0.83-4.51 [facility] Basophil percentageOrdered B y: Mike Aburto on 08-20-2023 Basophils/100 WBC (Bld) 0.4 % 0-1 [facility] Bilirubin [Mass/Vol] 0.80 mg/dL 0.20-1.00 [facility] Comment on above: For patients on eltr ombopag therapy, use of Dimension [place] TBIL is not recommended. Chloride [Moles/Vol] 106 mmol/L 98-107 [facility] Eosinophils/100 WBC (Bld) 0.6 % 0-5 [facility] Glucose [Mass/Vol] 106 mg/dL 74-106 [facility] Comment on above: Fasting Glucose resu lt from 100 to 125 mg/dL suggests IMPAIRED HOMEOSTASIS per A.D.A. criteria. Neutrophils (Bld) [#/Vol] 6.8 10*3/uL 2.0-7.7 [facility] Neutrophils/100 WBC (Bld) 81.1 % 47-70 [facility] Potassium [Moles/Vol] 4.6 mmol/L 3.5-5.1 [facility] Protein [Mass/Vol] 6.3 g/dL 6.4-8.2 [facility] Sodium [Moles/Vol] 140 mmol/L 136-145 [facility] WBC (Bld) [#/Vol] 8.4 10*3/uL 4.4-11.0 [facility] Blood erythrocytes count (nu mber/volume)Ordered By: Mike Aburto on 08-20-2023 RBC (Bld) [#/Vol] 5.84 10*6/uL 4.6-6.2 [facility] Blood hemoglobin measurement (mass/volume)Ordered By: Mike Aburto on 08-20-2023 Hemoglobin (Bld) [Mass/Vol] 16.5 g/dL 13.0-16.5 [facility] Blood lymphocytes/100 leukoc ytesOrdered By: Mike Aburto on 08-20-2023 Lymphocytes/100 WBC (Bld) 12.5 % 19-41 [facility] Blood monocytes/100 leukocyt esOrdered By: Mike Aburto on 08-20-2023 Monocytes/100 WBC (Bld) 4.8 % 0-10 [facility] Blood platelet mean volumeOr dered By: Mike Aburto on 08-20-2023 Platelet mean volume (Bld) [Entitic vol] 9.4 fL 6.2-12.0 [facility] Determination of erythrocyte mean corpuscular volume (MCV)Ordered By: Mike Aburto on 08-20-2023 MCV (RBC) [Entitic vol] 88.2 fL 80-94 [facility] Hematocrit Auto (Bld) [Volum e fraction]Ordered By: Mike Lamonte on 08-20-2023 Hematocrit (Bld) [Volume fraction] 51.5 % 40-54 [facility] - Chemistry and C hemistry - challengeOrdered By: Mike Aburto 08-20-2023 ALP [Catalytic activity/Vol] 92 U/L 45-117 [facility] ALT [Catalytic activity/Vol] 22 U/L 16-61 [facility] CO2 [Moles/Vol] 34.0 mmol/L 21.0-32.0 [facility] Globulin (S) [Mass/Vol] 3.2 g/dL 2.2-4.2 [facility] Urea nitrogen/Creatinine [Mass ratio] 18.0 mg/mg 10-20 [facility] - Hematology and Cell countsOrdered By: Mike Aburto 08-20-2023 Erythrocyte distribution width (RBC) [Entitic vol] 44.0 fL 35.1-43.9 [facility] Erythrocyte distribution width (RBC) [Ratio] 13.7 % 11.6-14.6 [facility] Immature granulocytes/100 WBC (Bld) 0.600 % 0.0-0.9 [facility] Comment on above: IG% - Immature Granu locytes (promyelocytes, myelocytes and metamyelocytes) > 1% indicates that a LEFT SHIFT is Present. MCH (RBC) [Entitic mass] 28.3 pg 27.0-32.0 [facility] Nucleated RBC/100 WBC (Bld) [Ratio] 0 % 0-5 [facility] MCHC Auto (RBC) [Mass/Vol]Or dered By: Mike Aburto on 08-20-2023 MCHC (RBC) [Mass/Vol] 32.0 g/dL 32-36 [facility] No Panel InformationOrdered By: Mike Aburto on 08-20-2023 Estimated GFR (MDRD) Amer 75 mL/min >60 [facility] Comment on above: GFR Calc Estimated GFR (MDRD) Non-Af Amer 62 mL/min >60 [facility] Comment on above: Non- GFR Calc Prostate Specific Antigen Screen 2.62 ng/mL 0.00-4.00 [facility] Comment on above: This test was perfor med using the TPSA assay method for [employer] chemistry system. Values obtained with differentassay methods cannot be used interchangably.When changing PSA assays in the course of monitoring apatient, additional sequential testing should be carriedout to confirm baseline values. Thyroid Stimulating Hormone (TSH) 0.52 uIU/mL 0.358-3.74 [facility] Vitamin D 25-Hydroxy 54.7 ng/mL [facility] Comment on above: Vitamin D 25(OH) Sta tus Range Deficiency <20 ng/mL (50nmol/L) Insufficiency 20 - 30 ng/mL (50 - 75 nmol/L) Sufficiency 30 - 100 ng/mL (75 - 250 nmol/L) Toxicity >100 ng/mL (>250 nmol/L) Platelets bldOrdered By: Mike Aburto on 08-20-2023 Platelets (Bld) [#/Vol] 172 10*3/uL 150-450 [facility] Serum or plasma albumin mamie urement (mass/volume)Ordered By: Mike Aburto on 08-20-2023 Albumin [Mass/Vol] 3.1 g/dL 3.2-5.0 [facility] Serum or plasma albumin/glob ulin mass ratioOrdered By: Mike Aburto on 08-20-2023 Albumin/Globulin [Mass ratio] 1.0 {ratio} 0.9-2.4 [facility] Serum or plasma calcium mamie urement (mass/volume)Ordered By: Mike Aburto on 08-20-2023 Calcium [Mass/Vol] 8.7 mg/dL 8.5-10.1 [facility] Serum or plasma creatinine m easurement (mass/volume)Ordered By: Mike Aburto on 08-20-2023 Creatinine [Mass/Vol] 1.22 mg/dL 0.70-1.30 [facility] Comment on above: The validity of the calculated GFR & GFRAA in patients over 70 years has not been determined. Clinical correlation is essential. Serum or plasma urea nitroge n measurement (mass/volume)Ordered By: Mike Aburto on 08-20-2023 Urea nitrogen [Mass/Vol] 22 mg/dL 7-18 [facility] Thin prep Papanicolaou smear with manual screeningOrdered By: Mike Aburto on 08-20-2023 Thin prep Papanicolaou smear with manual screening 15 U/L 15-37 [facility] Thin prep Papanicolaou smear with manual screening 0 5-15 [facility] Basophil percentageon 2022 Bilirubin [Mass/Vol] 0.60 mg/dL 0.20-1.00 [facility] Comment on above: For patients on eltr ombopag therapy, use of Dimension [place] TBIL is not recommended. Chloride [Moles/Vol] 105 mmol/L 98-107 [facility] Glucose [Mass/Vol] 85 mg/dL 74-106 [facility] Potassium [Moles/Vol] 4.0 mmol/L 3.5-5.1 [facility] Protein [Mass/Vol] 6.4 g/dL 6.4-8.2 [facility] Sodium [Moles/Vol] 139 mmol/L 136-145 [facility] WBC (Bld) [#/Vol] 7.0 10*3/uL 4.4-11.0 [facility] Blood erythrocytes count (nu mber/volume)on 07-21-2023 RBC (Bld) [#/Vol] 5.28 10*6/uL 4.6-6.2 [facility] Blood hemoglobin measurement (mass/volume)on 07-21-2023 Hemoglobin (Bld) [Mass/Vol] 14.8 g/dL 13.0-16.5 [facility] Blood platelet mean volumeon 07-21-2023 Platelet mean volume (Bld) [Entitic vol] 10.3 fL 6.2-12.0 [facility] Determination of erythrocyte mean corpuscular volume (MCV)on 07-21-2023 MCV (RBC) [Entitic vol] 90.0 fL 80-94 [facility] Hematocrit Auto (Bld) [Volum e fraction]on 07-21-2023 Hematocrit (Bld) [Volume fraction] 47.5 % 40-54 [facility] INR in Blood by Coagulation assayon 07-21-2023 INR Coag (Bld) [Relative time] 0.9 {INR} [facility] Laboratory - Chemistry and C hemistry - challengeon 07-21-2023 ALP [Catalytic activity/Vol] 93 U/L 45-117 [facility] ALT [Catalytic activity/Vol] 24 U/L 16-61 [facility] CO2 [Moles/Vol] 31.0 mmol/L 21.0-32.0 [facility] Globulin (S) [Mass/Vol] 3.0 g/dL 2.2-4.2 [facility] Urea nitrogen/Creatinine [Mass ratio] 19.4 mg/mg 10-20 [facility] Laboratory - Coagulationon 1 aPTT Coag (Bld) [Time] 27.0 s 24.1-36.2 [facility] PT Coag (PPP) [Time] 12.3 s 11.7-14.9 [facility] Laboratory - Hematology and Cell countson 07-21-2023 Erythrocyte distribution width (RBC) [Entitic vol] 44.7 fL 35.1-43.9 [facility] Erythrocyte distribution width (RBC) [Ratio] 13.6 % 11.6-14.6 [facility] MCH (RBC) [Entitic mass] 28.0 pg 27.0-32.0 [facility] MCHC Auto (RBC) [Mass/Vol]on 07-21-2023 MCHC (RBC) [Mass/Vol] 31.2 g/dL 32-36 [facility] No Panel Informationon 07-21 Estimated GFR (MDRD) Amer 92 mL/min >60 [facility] Comment on above: GFR Calc Estimated GFR (MDRD) Non-Af Amer 76 mL/min >60 [facility] Comment on above: Non- GFR Calc Platelets bldon 07-21-2023 Platelets (Bld) [#/Vol] 168 10*3/uL 150-450 [facility] Serum or plasma albumin mamie urement (mass/volume)on 07-21-2023 Albumin [Mass/Vol] 3.4 g/dL 3.2-5.0 [facility] Serum or plasma albumin/glob ulin mass ratioon 07-21-2023 Albumin/Globulin [Mass ratio] 1.1 {ratio} 0.9-2.4 [facility] Serum or plasma calcium mamie urement (mass/volume)on 07-21-2023 Calcium [Mass/Vol] 8.9 mg/dL 8.5-10.1 [facility] Serum or plasma creatinine m easurement (mass/volume)on 07-21-2023 Creatinine [Mass/Vol] 1.03 mg/dL 0.70-1.30 [facility] Comment on above: The validity of the calculated GFR & GFRAA in patients over 70 years has not been determined. Clinical correlation is essential. Serum or plasma urea nitroge n measurement (mass/volume)on 07-21-2023 Urea nitrogen [Mass/Vol] 20 mg/dL 7-18 [facility] Thin prep Papanicolaou smear with manual screeningon 07-21-2023 Thin prep Papanicolaou smear with manual screening 17 U/L 15-37 [facility] Thin prep Papanicolaou smear with manual screening 3 5-15 [facility] Bacteria identified Cx Nom ( Wound)Ordered By: Mike Aburto on 04-21-2023 Wound Culture Presumptive E. coli [facility] Gram stain for investigation of transfusion reactionOrdered By: Mike Aburto on 04-21-2023 Microscopic observation Gram stain Nom (Unsp spec) [facility] No Panel InformationOrdered By: Mike Aburto on 04-21-2023 Methicillin-Resist S.aureus DNA PCR Negative Negative [facility] Staphylococcus aureus DNA de tection by probe and target amplification methodOrdered By: Mike Aburto on 04-21-2023 S. aureus DNA ZACHARY+probe Ql (Unsp spec) Negative Negative [facility] CNOVon 04-19-2023 CNOV Office Visit (UCWSTR ) -- NAM GUZMAN ([id number]) 1955 M Date Time Provider Department 04/19/23 11:45 AM JEFFREY BETHEAWSJAVIER During your visit today, we recorded the following information about you: Temperature Pulse Respiration Blood pressure 97.5 degrees 78/minute 16/minute 122/80 Weight 91.2 kg Jeffrey Bethea APRN.DOCTOR OF DENTAL SURGERY 04/19/2023 11:26 AM Signed ASSESSMENT/PLAN: 1. Skin infection - ICD9: 686.9, ICD10: L08.9 - Begin treatment with Cephalaxin (Keflex) - No lymphangetic streaking, this was defined for patient to watch for and to seek medical care immediately if appears - Follow up for recheck in three days if persisting Urgent f/u for worsening. - CEPHALEXIN 500 MG CAPSULE Jeffrey Bethea APRN.[facility] 04/19/2023 11:31 AM Signed Subjective HPI HPI Nam Guzman is a 68 year old male who presents today for CC of right leg skin tear, now red. This started 1 week ago. Has tried nothing for relief. Symptoms are worsened by nothing. Denies diabetes. Patient not known to [facility], denies renal/hepatic disease. .Patient presents with: [...] by JEFFREY BETHEA on 04/19/23 Normal [facility] Danielle Basophil percentageOrdered B y: Mike Aburto on 03-11-2023 Basophil percentage < 0.9 mg/dL 0.70-1.30 [facility] No Panel InformationOrdered By: Mike Aburto on 03-11-2023 Bedside Estimated GFR (eGFR) > 60.0000 mL/min >60 [facility] Vital Signs Date Time Vital Sign Value Performing Clinician Facility 12-15-2024 11:10-0500 Body temperature 98.01 [degF] Robyb Castrejon PA-C Work Phone: [facility] 12-15-2024 11:10-0500 Diastolic blood pressure 88 mm[Hg] Robby Castrejon PA-C Work Phone: [facility] 12-15-2024 11:10-0500 Heart rate 81 /min Robby Castrejon PA-C Work Phone: [facility] 12-15-2024 11:10-0500 SaO2% (BldA) [Mass fraction] 98 % Robby Fair PA-C Work Phone: [facility] 12-15-2024 11:10-0500 Systolic blood pressure 118 mm[Hg] Robby Fair PA-C Work Phone: [facility] 12-02-2024 12:31-0500 Body temperature 98.1 [degF] Robby Fair PA-C Work Phone: [facility] 12-02-2024 12:31-0500 Diastolic blood pressure 98 mm[Hg] Robby Fair PA-C Work Phone: [facility] 12-02-2024 12:31-0500 Heart rate 84 /min Robby Fair PA-C Work Phone: [facility] 12-02-2024 12:31-0500 SaO2% (BldA) [Mass fraction] 97 % Robby Castrejon PA-C Work Phone: [facility] 12-02-2024 12:31-0500 Systolic blood pressure 139 mm[Hg] Robby Fair PA-C Work Phone: [facility] 11-19-2024 11:59-0500 Body temperature 97.7 [degF] Andrew Gumzan MD Work Phone: [facility] 11-19-2024 11:59-0500 Diastolic blood pressure 73 mm[Hg] Andrew Guzman MD Work Phone: [facility] 11-19-2024 11:59-0500 Heart rate 61 /min Andrew Guzman MD Work Phone: [facility] 11-19-2024 11:59-0500 Respiratory rate 16 /min Andrew Guzman MD Work Phone: [facility] 11-19-2024 11:59-0500 SaO2% (BldA) [Mass fraction] 91 % Andrew Guzman MD Work Phone: [facility] 11-19-2024 11:59-0500 Systolic blood pressure 126 mm[Hg] Andrew Guzman MD Work Phone: [facility] 11-18-2024 09:04-0500 Body height 182.9 cm Andrew Guzman MD Work Phone: [facility] 11-18-2024 09:04-0500 Body mass index (BMI) [Ratio] 27.51 kg/m2 Andrew Guzman MD Work Phone: [facility] 11-18-2024 09:04-0500 Body weight 92 kg Andrew Guzman MD Work Phone: [facility] 10-08-2024 14:10-0500 Diastolic blood pressure 83 mm[Hg] Andrew Guzman MD Work Phone: [facility] 10-08-2024 14:10-0500 Heart rate 88 /min Andrew Guzman MD Work Phone: [facility] 10-08-2024 14:10-0500 SaO2% (BldA) [Mass fraction] 97 % Andrew Guzman MD Work Phone: [facility] 10-08-2024 14:10-0500 Systolic blood pressure 125 mm[Hg] Andrew Guzman MD Work Phone: [facility] 09-30-2024 09:08-0500 Diastolic blood pressure 83 mm[Hg] Ahmet Frances PA-C Work Phone: [facility] 09-30-2024 09:08-0500 Heart rate 78 /min Ahmet Frances PA-C Work Phone: [facility] 09-30-2024 09:08-0500 SaO2% (BldA) [Mass fraction] 95 % Ahmet Frances PA-C Work Phone: [facility] 09-30-2024 09:08-0500 Systolic blood pressure 127 mm[Hg] Ahmet Frances PA-C Work Phone: [facility] 11-14-2023 11:04-0500 Body height 182.[address] Mike Aburto Work Phone: [facility] 11-14-2023 11:04-0500 Body mass index (BMI) [Ratio] 26.7 kg/m2 Dr. Mike Aburto Work Phone: 2(635)798-563160 [place] [address] 11-14-2023 11:04-0500 Body weight 89.[address] Mike Aburto Work Phone: 2(231)401-496760 [place] [address] 11-14-2023 11:04-0500 Diastolic blood pressure 87 mm[Hg] Dr. Mike Aburto Work Phone: 9(910)061-416909 [place] [address] 11-14-2023 11:04-0500 Heart rate 67 /min Dr. Mike Aburto Work Phone: 3(946)984-928860 [place] [address] 11-14-2023 11:04-0500 Respiratory rate 18 /min Dr. Mike Aburto Work Phone: 2(751)206-205009 [place] [address] 11-14-2023 11:04-0500 Systolic blood pressure 135 mm[Hg] Dr. Mike Aburto Work Phone: 3(720)405-158209 [place] [address] 11-03-2023 14:06-0500 Body temperature 98.1 [degF] Dr. Mike Aburto Work Phone: 9(728)318-919109 [place] [address] 11-03-2023 14:06-0500 Diastolic blood pressure 94 mm[Hg] Dr. Mike Aburto Work Phone: 4(700)587-226709 [place] [address] 11-03-2023 14:06-0500 Heart rate 69 /min Dr. Mike Aburto Work Phone: 7(922)186-136709 [place] [address] 11-03-2023 14:06-0500 Respiratory rate 18 /min Dr. Mike Aburto Work Phone: 5(512)122-876909 [place] [address] 11-03-2023 14:06-0500 SaO2% (BldA) [Mass fraction] 18 % Dr. Mike Aburto Work Phone: 2(694)358-393609 [place] [address] 11-03-2023 14:06-0500 Systolic blood pressure 154 mm[Hg] Dr. Mike Aburto Work Phone: 6(368)208-507509 [place] [address] 11-02-2023 11:14-0500 Body height 182.[address] Mike Aburto Work Phone: 4(044)609-075309 [place] [address] 11-02-2023 11:14-0500 Body mass index (BMI) [Ratio] 27.2 kg/m2 Dr. Mike Aburto Work Phone: 9(855)989-507109 [place] [address] 11-02-2023 11:14-0500 Body weight 91.[address] Mike Aburto Work Phone: 9(185)706-963409 [place] [address] 11-02-2023 09:00-0500 Respiratory rate 20 /min Dr. Mike Aburto Work Phone: 9(421)116-214809 [place] [address] 11-02-2023 06:39-0500 Diastolic blood pressure 84 mm[Hg] Dr. Mkie Aburto Work Phone: 6(616)555-400609 [place] [address] 11-02-2023 06:39-0500 Heart rate 67 /min Dr. Mike Aburto Work Phone: 1(987)894-497609 [place] [address] 11-02-2023 06:39-0500 SaO2% (BldA) [Mass fraction] 94 % Dr. Mike Aburto Work Phone: 7(264)456-757209 [place] [address] 11-02-2023 06:39-0500 Systolic blood pressure 133 mm[Hg] Dr. Mike Aburto Work Phone: 2(311)781-454809 [place] [address] 11-02-2023 05:27-0500 Body height 182.[address] Mike Aburto Work Phone: 3(991)172-263009 [place] [address] 11-02-2023 05:27-0500 Body mass index (BMI) [Ratio] 26.9 kg/m2 Dr. Mike Aburto Work Phone: 3(817)370-250209 [place] [address] 11-02-2023 05:27-0500 Body temperature 98.1 [degF] Dr. Mike Aburto Work Phone: 9(020)272-498009 [place] [address] 11-02-2023 05:27-0500 Body weight 89.[address] Mike Aburto Work Phone: 8(075)444-462709 [place] [address] 08-13-2023 11:08-0400 Body height 182.[address] Mike Aburto Work Phone: 2(564)060-965009 [place] [address] 08-13-2023 11:08-0400 Body mass index (BMI) [Ratio] 27.1 kg/m2 Dr. Mike Aburto Work Phone: [facility] 08-13-2023 11:08-0400 Body weight 90.[address] Mike Aburto Work Phone: [facility] 08-13-2023 11:08-0400 Diastolic blood pressure 86 mm[Hg] Dr. Mike Aburto Work Phone: [facility] 08-13-2023 11:08-0400 Heart rate 78 /min Dr. Mike Aburto Work Phone: [facility] 08-13-2023 11:08-0400 Respiratory rate 16 /min Dr. Mike Aburto Work Phone: [facility] 08-13-2023 11:08-0400 SaO2% (BldA) [Mass fraction] 96 % Dr. Mike Aburto Work Phone: [facility] 08-13-2023 11:08-0400 Systolic blood pressure 149 mm[Hg] Dr. Mike Aburto Work Phone: [facility] 05-27-2023 09:49-0400 Body mass index (BMI) [Ratio] 27.1 kg/m2 [facility] 05-27-2023 09:49-0400 Body temperature 97.2 [degF] [facility] 05-27-2023 09:49-0400 Diastolic blood pressure 89 mm[Hg] [facility] 05-27-2023 09:49-0400 Heart rate 88 /min [facility] 05-27-2023 09:49-0400 Respiratory rate 16 /min [facility] 05-27-2023 09:49-0400 Systolic blood pressure 143 mm[Hg] [facility] 05-13-2023 00:42-0400 Body weight 90.71 kg [facility] 05-06-2023 08:11-0400 Body mass index (BMI) [Ratio] 27.1 kg/m2 [facility] 05-06-2023 08:11-0400 Body temperature 97.9 [degF] [facility] 05-06-2023 08:11-0400 Diastolic blood pressure 91 mm[Hg] [facility] 05-06-2023 08:11-0400 Heart rate 84 /min [facility] 05-06-2023 08:11-0400 Respiratory rate 18 /min [facility] 05-06-2023 08:11-0400 Systolic blood pressure 141 mm[Hg] [facility] 04-29-2023 08:11-0400 Body height 182.88 cm [facility] 04-29-2023 08:11-0400 Body weight 90.71 kg [facility] Encounters Encounter Date Encounter Type Care Provider Facility Start: 04-13-2025 ambulatory Mike Chi Lamonte Facility:[facility] Start: 04-05-2025 ambulatory Mike Chi Lamonte Facility:[facility] Start: 04-01-2025 ambulatory Mike Chi Lamonte Facility:[facility] Start: 03-29-2025 ambulatory Mike Chi Lamonte Facility:[facility] Start: 03-25-2025 End: 03-25-[address] Mike Aburto MD -Cat Scan [facility] Work Phone: Start: 03-25-2025 End: 03-25-2025 ambulatory Mike Chi Lamonte Facility:[facility] Start: 03-14-2025 End: 03-14-[address] Mike Aburto MD Work Phone: [facility] Work Phone: Start: 03-14-2025 End: 03-14-[address] Mike Aburto MD -Laboratory Work Phone: Start: 03-14-2025 End: 03-14-2025 ambulatory Mike Chi Lamonte Facility:[facility] Start: 02-22-2025 End: 02-22-2025 ambulatory [facility] Start: 02-14-2025 End: 02-14-2025 ambulatory [facility] Start: 02-14-2025 End: 02-18-2025 ambulatory [facility] Start: 01-28-2025 End: 01-28-2025 Office outpatient visit 15 minutes Andrew Guzman MD Work Phone: [facility] Comment on above: Failed back syndrome (Primary Dx); Lumbar foraminal stenosis Start: 01-28-2025 End: 01-28-2025 ambulatory MIKE ABURTO [facility] Start: 01-05-2025 End: 01-05-2025 Orders Only Robby Castrejon PA-C Work Phone: [facility] Comment on above: Status post lumbar s urgery (Primary Dx); Status post insertion of spinal cord stimulator Start: 12-21-2024 End: 12-21-[address] Mike Aburto MD Work Phone: [facility] Work Phone: Start: 12-21-2024 End: 12-21-2024 Patient encounter procedure Cathleen Fermin PA -Laboratory Work Phone: Start: 12-21-2024 End: 12-21-2024 ambulatory Cathleen HUDDLESTON Facility:[facility] Start: 12-15-2024 End: 12-15-2024 Postop follow up visit related to original px Robby Castrejon PA-C Work Phone: [facility] Comment on above: Failed back syndrome (Primary Dx) Start: 12-15-2024 End: 12-15-2024 ambulatory ROBBY CASTREJON [facility] Start: 12-08-2024 End: 12-08-2024 ambulatory MIKE ABURTO [facility] Start: 12-08-2024 End: 12-08-2024 Documentation procedure Robby ALONZOC Work Phone: [facility] Start: 12-02-2024 End: 12-02-2024 Postop follow up visit related to original px Robby Castrejon PA-C Work Phone: [facility] Comment on above: Failed back syndrome (Primary Dx) Start: 12-02-2024 End: 12-02-2024 ambulatory ROBBY CASTREJON [facility] Start: 11-26-2024 End: 11-30-2024 Clinical Support Zuly Good RN [facility] Comment on above: Arrived Start: 11-18-2024 End: 11-19-2024 [facility] Start: 11-18-2024 End: 11-19-2024 Subsequent hospital visit by physician Andrew Guzman MD Work Phone: [facility] Start: 10-28-2024 Preprocedural examin ation done Zuly Good RN [facility] Start: 10-28-2024 End: 10-28-2024 ambulatory [facility] Start: 10-28-2024 End: 11-01-2024 Encounter for other [facility]procedural [facility] Start: 10-28-2024 End: 11-01-2024 Clinical Support Zuly Good RN [facility] Comment on above: Malfunction of spina l cord stimulator, initial encounter (Primary Dx) Start: 10-08-2024 End: 10-08-2024 ambulatory PROVIDER NOT IN SYSTEM [facility] Start: 10-08-2024 End: 10-08-2024 Office outpatient new 30 minutes Andrew Guzman MD Work Phone: [facility] Comment on above: Malfunction of spina l cord stimulator, initial encounter (HCC) (Primary Dx); Scoliosis of lumbar spine, unspecified scoliosis type; Lumbar spondylosis; Polymyalgia rheumatica (HCC) Start: 10-08-2024 End: 10-08-2024 ambulatory MIKE ABURTO [facility] Start: 10-08-2024 End: 10-08-2024 ambulatory PROVIDER NOT IN SYSTEM [facility] Start: 10-08-2024 ambulatory WILBER BLAND [facility] Start: 10-05-2024 End: 10-05-2024 Patient encounter procedure Ahmet Frances PA-C -Cat Scan, [facility] Work Phone: Start: 10-05-2024 End: 10-05-2024 ambulatory Andrew Guzman Facility:[facility] Start: 09-30-2024 End: 09-30-2024 Office outpatient new 30 minutes Mike Aburto MD Work Phone: [facility] Comment on above: Failed back syndrome (Primary Dx); Lumbar radiculopathy Start: 09-30-2024 End: 09-30-2024 ambulatory MIKE AFSHIN LAMONTE [facility] Start: 09-13-2024 End: 09-13-2024 Transcribe Orders Mike Aburto MD Work Phone: [facility] Comment on above: Encounter for adjust ment and management of neurostimulator (Primary Dx) Start: 09-03-2024 End: 09-03-[address] Mike Aburto MD -Cat Scan, [facility] Work Phone: Start: 09-03-2024 End: 09-03-2024 ambulatory Mike Chi Lamonte Facility:[facility] Start: 08-23-2024 End: 08-23-2024 ambulatory Mike Chi [facility] Facility:[facility] Start: 08-04-2024 ambulatory Mike Chi [facility] Facility:[facility] Start: 08-04-2024 End: 08-04-2024 ambulatory [facility] Facility:[facility] Start: 07-27-2024 End: 07-27-2024 ambulatory [facility] Facility:[facility] Start: 06-23-2024 End: 06-23-2024 ambulatory Rogelio Preciado Facility:[facility] Start: 11-26-2023 End: 11-26-[address] Mike Aburto Work Phone: [facility] Work Phone: Start: 11-26-2023 End: 11-26-[address] Mike Aburto Work Phone: [facility]-Laboratory Work Phone: Start: 11-24-2023 Non-patient / Non-visit Dr. Joseph Aburto Work Phone: [facility] Work Phone: Start: 11-21-2023 Non-patient / Non-visit Dr. Joseph Aburto Work Phone: [facility] Start: 11-21-2023 End: 11-21-[address] Mike Aburto Work Phone: [facility] Work Phone: Start: 11-21-2023 End: 11-21-[address] Mike Aburto Work Phone: [facility] Work Phone: Start: 11-20-2023 End: 11-20-[address] Mike Aburto Work Phone: [facility] Work Phone: Start: 11-20-2023 End: 11-20-[address] Mike Aburto Work Phone: [facility] Work Phone: Start: 11-14-2023 End: 11-14-[address] Mike Aburto Work Phone: [facility] Work Phone: Start: 11-06-2023 End: 11-06-[address] Mike Aburto Work Phone: [facility] Work Phone: Start: 11-06-2023 End: 11-06-[address] Mike Aburto Work Phone: [facility]-Laboratory, Phy Office 3rd Flr Start: 11-03-2023 Non-patient / Non-visit Dr. Joseph Aburto Work Phone: [facility] Work Phone: Start: 11-02-2023 End: 11-03-2023 Evaluation and management of inpatient [facility] Mike [facility] Work Phone: Start: 11-02-2023 End: 11-03-[address] Mike Aburto Work Phone: [facility] Work Phone: Start: 08-20-2023 End: 08-20-[address] Mike Aburto Work Phone: [facility] Work Phone: Start: 08-20-2023 End: 08-20-[address] Mike Aburto Work Phone: [facility]-Laboratory, Phy Office 3rd Flr Start: 08-13-2023 End: 08-13-[address] Mike Aburto Work Phone: [facility] Work Phone: Start: 07-21-2023 End: 07-21-2023 ambulatory [facility] Work Phone: Start: 07-21-2023 End: 07-21-2023 Patient encounter procedure [facility] Work Phone: Start: 05-27-2023 End: 06-12-2023 ambulatory [facility] Work Phone: Start: 05-27-2023 End: 06-12-2023 Discharged Recurring [facility] Work Phone: Start: 05-06-2023 End: 05-12-2023 ambulatory [facility] Work Phone: Start: 05-06-2023 End: 05-12-2023 Discharged Recurring [facility] Work Phone: Start: 04-21-2023 End: 04-21-2023 Patient encounter procedure [facility], Phy Office 3rd Flr Start: 04-19-2023 End: 04-19-2023 ambulatory Facility:[facility] Start: 03-11-2023 End: 03-11-2023 ambulatory [facility] Work Phone: Start: 03-11-2023 End: 03-11-2023 Patient encounter procedure [facility]-Cat Scan, [facility] Work Phone: Start: 02-21-2023 End: 02-21-2023 Patient encounter procedure [facility]Radiology, [facility] Work Phone: Procedures Date Procedure Procedure Detail Performing Clinician Start: 03-25-[address] Jluis Aburto MD Work Phone: Start: 03-25-[address] Lynda Aburto MD Work Phone: Start: 03-25-2025 CT of abdomen and pe lvis without contrast Dr. Mike Aburto MD Work Phone: Start: 03-14-2025 Vitamin D, 25-hydrox y measurement [...] Start: 04-21-2023 Investigation of transfusion reaction Start: 07-10-2023 Microbial culture, routine Start: 03-11-2023 Computed tomography of abdomen and pelvis with contrast Start: 02-21-2023 Radiography of esophagus Start: 08-20-2017 Colonoscopy Ahmet dejesus PA-C Work Phone: Plan of Treatment Date Care Activity Detail Author Start: 07-09-2032 Tetanus vaccination Tetanus: Every 1 0yrs [facility] Start: 02-13-2028 Respiratory Syncytia l Virus Immunization: Risk, 60-74 Risk, or 75+ (1 - 1-dose 75+ series) Respiratory Syncytial Virus Immunization: Risk, 60-74 Risk, or 75+ (1 - 1-dose 75+ series) [facility] Start: 08-20-2027 Screening for malign ant neoplasm of colon [facility] Start: 01-25-2025 End: 01-25-2025 Follow-up encounter 01/25/2025 2:00 PM EDT Follow-Up [facility] [address] [place] [address] [place] [phone] Andrew Guzman MD [address] [place] [address] [address] [facility] Start: 12-30-2024 End: 12-30-2024 Patient encounter procedure 12/30/2024 11:15 AM EDT Office Visit [facility] [address] [place] [address] [place] [address] Robby Castrejon PA-C [address] [place], [place] [address]james [address] [address] [facility] Start: 12-15-2024 End: 12-15-2024 Patient encounter procedure 12/15/2024 11:15 AM EST Office Visit [facility] [address] [facility] [place] [phone] Robby Castrejon PA-C [address] [facility] Brianne [address] [address] [facility] Start: 12-08-2024 End: 12-08-2024 Clinical Support 12/08/2024 11:00 AM EST Clinical Support [facility] [address] [facility] [place] [address] [facility] Start: 12-03-2024 End: 12-03-2024 Follow-up encounter 12/03/2024 1:00 PM EST Follow-Up [facility] [address] [facility] [place] [address] Robby Castrejon PA-C [address] [address] [facility] Start: 11-26-2024 End: 11-26-2024 Clinical Support 11/26/2024 11:00 AM EST Clinical Support [facility] [address] [place] [phone] [facility] Start: 11-11-2024 End: 11-11-2024 Admission to same day surgery center 11/11/2024 6:50 AM EST - 11/11/2024 10:50 AM EST Surgery [facility] [address] [place] [phone] Andrew Guzman MD [address] [place] [address] Thoracic 10-11, possible Thoracic 7-9 Laminectomy, Removal Retained SCS Electrodes, Insertion of Paddle Lead Electrode, possible Thoracic 7-8 Laminoplasty/fusion, Removal of Left Flank IPG, insertion of new Left Flank IPG. [facility] Comment on above: Thoracic 10-11, poss ible Thoracic 7-9 Laminectomy, Removal Retained SCS Electrodes, Insertion of Paddle Lead Electrode, possible Thoracic 7-8 Laminoplasty/fusion, Removal of Left Flank IPG, insertion of new Left Flank IPG. Start: 11-11-2024 End: 11-11-2024 Insj/rplcmt spi npgr dir/induxive coupling INSERTION SPINAL CORD STIMULATOR PERMANENT Malfunction of spinal cord stimulator, initial encounter 11/11/2024 6:50 AM EST [facility] [place] Start: 11-11-2024 Subsequent hospital visit by physician 11/11/2024 6:50 AM EST Hospital Encounter [facility] [address] [place] [address] Andrew Guzman MD [address] [address] [facility] Start: 10-08-2024 End: 10-08-2024 Patient encounter procedure 10/08/2024 2:15 PM EST Office Visit [facility] [address] [place] [phone] Andrew Guzman MD [address] [place] [address] [facility] Start: 09-30-2024 End: 09-30-2025 CT Thoracic spine WO contrast CT Thoracic Spine Without Contrast Imaging STAT Failed back syndrome Expected: 09/30/2024 (Approximate), Expires: 09/30/2025 [facility] Work Phone: Comment on above: Expected: 09/30/2024 (Approximate), Expires: 09/30/2025 Start: 06-13-2024 COVID-19 Vaccine ( season) COVID-19 Vaccine ( season) [facility] Start: 11-06-2023 Procedure [facility] Start: 11-03-2023 Patient discharge [facility] Start: 11-02-2023 Continuous positive airway pressure ventilation treatment [facility] Start: 11-02-2023 Following clinical pathway protocol [facility] Start: 11-02-2023 Assessment of risk o f venous thromboembolism [facility] Start: 11-02-2023 Fall prevention [facility] Start: 11-02-2023 Inhalation therapy procedure [facility] Start: 11-02-2023 Insertion of cathete r into peripheral vein [facility] Start: 11-02-2023 Providing care accor ding to standard [facility] Start: 11-02-2023 Provision of activit y privileges [facility] Start: 11-02-2023 Referral to occupati onal therapist [facility] Start: 11-02-2023 Referral to service [facility] Start: 11-02-2023 [facility] Start: 11-02-2023 Verification routine [facility] Start: 11-02-2023 Admission procedure [facility] Start: 11-02-2023 Hospital admission, emergency, from emergency room, medical nature [facility] Start: 2018 Fall risk assessment Falls Risk Asse ssment [facility] Start: 2003 Screening for malign ant neoplasm of colon Flexible sigmoidoscopy [facility] Start: 1971 Hepatitis C screening Hepatitis C Sc reening [facility] Start: 1965 Depression screening using PHQ-9 (Patient Health Questionnaire 9) score Depression Screening/Follow-Up (PHQ-2/9) [facility] Start: 02-13-1956 Medicare Wellness Visit Medica re Wellness Visit [facility] Start: 1953 Prostate specific an tigen measurement PSA Level [facility] Start: 1953 Screening for malign ant neoplasm of colon [facility] End: 12-08-2025 C reactive protein [Mass/volume] in Serum or Plasma CRP, Inflammation Lab Routine Erythema Status post lumbar surgery 1 Occurrences starting 12/08/2024 until 12/08/2025 [facility] Comment on above: 1 Occurrences starti ng 12/08/2024 until 12/08/2025 End: 12-08-2025 Complete blood count with white cell differential, manual CBC and Differential Lab Routine Erythema Status post lumbar surgery 1 Occurrences starting 12/08/2024 until 12/08/2025 [facility] Work Phone: Comment on above: 1 Occurrences starti ng 12/08/2024 until 12/08/2025 End: 12-08-2025 Erythrocyte sedimentation rate Sedimentation Rate Lab Routine Erythema Status post lumbar surgery 1 Occurrences starting 12/08/2024 until 12/08/2025 [facility] Comment on above: 1 Occurrences starti ng 12/08/2024 until 12/08/2025 Lipid 1996 panel - S olman or Plasma [facility] Patient Education ED Vertigo, Unspecified [facility] Work Phone: Patient referral [facility] Work Phone: End: 01-05-2026 XR Lumbar spine 2 or 3 Views XR Lumbar Spine 2-3 Views (Standard) Imaging Routine Status post lumbar surgery Status post insertion of spinal cord stimulator 1 Occurrences starting 01/05/2025 until 01/05/2026 [facility] Comment on above: 1 Occurrences starti ng 01/05/2025 until 01/05/2026 XR Lumbar spine 2 or 3 Views XR Lumbar Spine 2-3 Views (Standard) Imaging Routine Status post lumbar surgery Status post insertion of spinal cord stimulator 01/05/2025 2:28 PM EDT [facility] End: 11-18-2024 XR Thoracic spine 2 Views [facility] Work Phone: Comment on above: One time imaging One time imaging for 1 Occurrences starting 11/18/2024 until 11/18/2024 End: 01-05-2026 XR Thoracic spine 3 Views XR Thoracic Spine 3 Views (Standard) Imaging Routine Status post lumbar surgery Status post insertion of spinal cord stimulator 1 Occurrences starting 01/05/2025 until 01/05/2026 [facility] Work Phone: Comment on above: 1 Occurrences starti ng 01/05/2025 until 01/05/2026 XR Thoracic spine 3 Views XR Tho racic Spine 3 Views (Standard) Imaging Routine Status post lumbar surgery Status post insertion of spinal cord stimulator 01/05/2025 2:29 PM EDT [facility] Payers Date Payer Category Payer Self-pay [id number] 2024 Unknown [id number] 2023 Medicare PPO [employer] CHOICE PPO [id number] 2023 Medicare [id number] 2022 Miscellaneous or Other [facility] [id number] 2022 Medicare [id number] 2018 Medicare MEDICARE PART A & B Member Subscriber Plan / Payer (Effective 2018-Present) Name: Tamra Guzman Member ID: [id number] Relation to Subscriber: Self Name: Tamra Guzman Subscriber ID: [id number] Payer ID: Not on file Group ID: Not on file Type: Not on file Address: [facility] [place] [address] [place] [address] [id number] 2018 Medicare [id number] 1955 Unknown [id number] 2.16.840.1.793667.3.579.2. 900 1955 Unknown [id number] 2.16.840.1.820197.3.579.2. 900 1955 Unknown [id number] 2.16.840.1.373362.3.579.2. 1953 Unknown [id number] 2.16.840.1.403171.3.579.2. 1953 Unknown [id number] 2.16.840.1.909588.3.579.2. 1953 Unknown [id number] 2.16.840.1.118895.3.579.2. 1953 Unknown [id number] 2.16.840.1.618339.3.579.2 1953 Unknown [id number] 2.16.840.1.273936.3.579.2 1953 Unknown [id number] 2.840.1.361749.3.579.2 1953 Unknown [id number] 2.16.840.1.609956.3.579.2 1953 Unknown [id number] 2.16.840.1.577970.3.579.2 1953 Unknown [id number] 2.16.840.1.415133.3.579.2 1953 Unknown [id number] 2.840.1.082773.3.579.2 1953 Unknown [id number] 2.16.840.1.089321.3.579.2 1953 Unknown [id number] 2.16.840.1.928930.3.579.2 1953 Unknown [id number] 2.16.840.1.901517.3.579.2 1953 Unknown [id number] 2.16.840.1.381516.3.579.2 1953 Unknown [id number] 2.16.840.1.309305.3.579.2. 903 1953 Unknown [id number] 2..840.1.903295.3.579.2. 1953 Unknown [id number] 2..840.1.302003.3.579.2. 3 1953 Unknown [id number] 2..840.1.307053.3.579.2. 1953 Unknown [id number] 2.840.1.118107.3.579.2. 1953 Unknown [id number] 2.840.1.548577.3.579.2. 1953 Unknown [id number] 2.840.1.035229.3.579.2. 1953 Unknown [id number] 2.0.1.178991.3.579. Unknown [facility] [id number] Unknown [id number] 2.840.1.566164.3.579.2. 462 Unknown [id number] 2.840.1.334557.3.579.2. 462 Unknown [id number] 2.840.1.872014.3.579.2. 462 Unknown [id number] 2.840.1.521759.3.579.2. 462 Unknown [id number] 2.16840.1.261263.3.579.2. 462 Unknown [id number] 2.16840.1.776947.3.579.2. 462 Unknown [id number] 2.16840.1.665238.3.579.2. 462 Unknown [id number] 2.840.1.417512.3.579.2. 462 Unknown [id number] 2.16.840.1.706813.3.579.2. 462 Unknown [id number] 2.16.840.1.711172.3.579.2. 462 Unknown [id number] 2.16.840.1.182315.3.579.2. 462 Unknown [id number] 2.16.840.1.604418.3.579.2. 462 Unknown [id number] 2.16.840.1.773993.3.579.2. 462 Unknown [id number] 2.16.840.1.498565.3.579.2. 462 Social History Date Type Detail Facility Start: 05-27-2020 End: 11-14-2023 Tobacco smoking status NHIS Unknown if ever smoked [facility] Start: 1955 Sex Assigned At Male [facility] Start: 04-19-2014 End: 11-18-2024 History of Social function [facility] Start: 04-19-2014 End: 11-18-2024 Tobacco use panel [facility] Start: 1955 Sex assigned at Not on file [facility] Start: 02-28-2024 End: 09-30-2024 Tobacco smoking status NHIS Never smoked tobacco [facility] Start: 09-30-2024 End: 11-22-2024 Alcoholic beverage intake Lifetime non-drinker (finding) [facility] Start: 10-28-2024 Tobacco use and exposure Smokeless tobacco non-user [facility] Has the Sitemasher, or [employer] threatened to shut off services in your home in past 12Mo No [facility] (I/We) worried [facility] er (my/our) food would run out before (I/we) got money to buy more. Never true [facility] In the past 12 month s, has lack of transportation kept you from medical appointments or from getting medications? No [facility] Start: 12-31-2024 Sex Male (finding) [facility] Medical Equipment Procedure Code Equipment Code Equipment Original Text Equipment Identifier Dates Hemostat 2 X 4in Surgicel Fibrillar - [id number] Start: 11-18-2024 Hemostat 8 X 12. 5cm X 10mm Surgifoam Gelatin Sponge - [id number] Start: 11-18-2024 Lead 60cm Penta - [id number] Start: 11-18-2024 Sealant 5ml Hemo static Matrix Fast Prep Floseal W/ Recothrom - [id number] Start: 11-18-2024 Sealant 5ml Hemo static Matrix Fast Prep Floseal W/ Recothrom - [id number] Start: 11-18-2024 Hemostat 4 X 8in Surgicel Original Absorbable - [id number] Start: 11-18-2024 Generator Neurostimulator Implantable Xr5 Proclaim - [id number] Start: 11-18-2024 Goals Date Patient Goal Desired Activity /State Functional Status Date Assessment Result Facility 11-03-2023 Functional status Chair;Bathroom Privileg e [facility] Work Phone: Mental Status Date Assessment Result Facility 11-03-2023 Cognitive function Voice/Name [facility] Work Phone: 11-02-2023 Cognitive function Level Of Cons ciousness Awake;Alert;Appropriate;Follow s Commands [facility] Work Phone: Clinical Notes 04-19-2023 to 03-25-2025 Andrew Guzman MD - 01/28/2025 3:00 PM Robby Flores PA-C - 01/05/2025 2:58 PM Robby Flores PA-C - 01/05/2025 2:58 PM EDTPatient InstructionsPatient Instructions Note Date & Type Note Facility 03-25-2025 Radiology Diagnostic study note [facility] Imaging Services [address] [place], [place] [id number] Abdomen/Pelvis without Cont MR#: [id number] Acct: [id number] Name: TAMRA GUZMAN Rep #: [id number] : 1955 M 70 From: Jadon Chowdary MD PCP: Dr. Mike Aburto MD Status: REG Brenden MONTES Study:Abdomen/Pelvis without Cont Date of Exa m: 03/25/25 Exam# [id number] Ordering Dr: Mike Aburto MD PROCEDURE: ABDOMEN/PELVIS WITHOUT CONT 03/25/2025 REASON FOR EXAM: R FLANK PAIN TECHNIQUE: Abdomen and pelvis CT without intravenous contrast. Noncontrast technique limits evaluation of the abdominal and pelvic viscera. Coronal and Sagittal reconstruction series were provided. One or more dose reduction techniques were used (e.g., Automated exposure control, adjustment of the mA and/or kV according to patient size, use of iterative reconstruction technique). Dose report: CTDI L volume: 9.67 mGy. DLP: 514.66 mGy. PATIENT PREPARATION: Per protocol ORAL CONTRAST TYPE: None. COMPARISON: Prior study dated March 11, 2023. FINDINGS: Lung bases: Minimal basilar atelectasis. Calcified granuloma in the posterior medial aspect of the left lower lobe. Coronary artery calcification. Liver: Normal size. No obvious mass. Gallbladder: Unremarkable Spleen: Borderline splenomegaly. Pancreas: Normal size. No surrounding inflammation. Stable 1.6 cm cyst in the region of the uncinate process of the pancreas. Adrenals: Unremarkable Kidneys: There is a nonobstructive 3.5 mm calculus in the midpole posterior aspect of the right kidney. No evidence of hydronephrosis. Punctate calcification in the posterior midpole calyx of the left kidney. Stable 1 cm cyst in the lower pole of the right kidney. Bladder: Diffusely thickened urinary bladder wall. Cystitis should be ruled out. Mild increased markings are seen in the surrounding peritoneal fat. Central prostatic calcification. Bowel: Colonic diverticulosis without diverticulitis. Appendix: Unremarkable Lymph nodes: Unremarkable. Vasculature: Mild diffuse atherosclerotic calcifications are noted. Peritoneum / Retroperitoneum: Unremarkable Bones: Stable anterior listhesis of L4 on L5. Degenerative changes of the lumbar spine. Spinal cord stimulator device is seen. CT/Abdomen/Pelvis without Cont IMPRESSION: Small bilateral nonobstructive intrarenal calculi more prominent on the right side. No evidence of ureteral obstruction at this time. Borderline splenomegaly. Stable right renal cyst. Diffuse thickening of the urinary bladder wall. Cystitis should be ruled out. OVERALL FINAL ASSESSMENT: . Reading Location: [id number] CC: Dr. Mike Aburto MD ~ Rubber Splicer: Signed [facility] 02-22-2025 Note Neurosurgery interva l progress note. Patient presented today for removal and replacement of his spinal cord stimulator system which was malfunctioning, and the malfunctioning was quite impactful as the patient requires MRI brain and pancreas, which cannot be done if the system is malfunctioning. However this morning the system was interrogated by patient portal representative from [employer] and system is now functioning normally. Therefore his planned surgery will be canceled and he will be discharged to home. If he should have issues in the future with his system he will call me and then we can reassess as to whether or not a replacement is indicated. Plan to discharge patient today. AUTHENTICATED BY ANDREW GUZMAN, ON 02/22/2025 12:35:13 [facility] 02-14-2025 Note Pre-Operative H&P Assessment and Plan [...] patient: (1 point (more content not included)... [facility] 01-28-2025 History of Present illness Narrative Malfunction of retained spinal cord [...] spinal cord stimulator which was placed in [place], with cylindrical leads, but then the system [...] reconstructive spinal surgery. He is managed by boom operator in [facility]. He states his manifestations of polymyalgia rheumatica are pain everywhere. Medications reviewed in the DEC. Allergies to bee pollen. Psychosocial review. 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 He lives in the [facility] with his . Physical examination. Patient is [...] always a possibility of any implanted by chief medical technologist and I have once again reminded him [...] Andrew Guzman MD documented in this encounter [facility] 01-28-2025 Note Malfunction of retai oscar spinal [...] initial spinal cord stimulator whichwas placed in [place], with cylindrical leads, but then the system [...] reconstructive spinal surgery. He is managed by boom operator in [facility]. He states his manifestations of polymyalgia rheumatica are pain everywhere. Medications reviewed in the DEC. Allergies to bee pollen. Psychosocial review. 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 He lives in the [facility] with his . Physical examination. Patient is [...] always a possibility of any implanted by chief medical technologist and I have once again reminded him [...] prior procedures, which (more content not included)... [facility] 01-05-2025 Note Chanell from Driver sa w patient in clinic today to [...] AUTHENTICATED BY ROBBY CASTREJON, ON 01/28/2025 15:14:35 [facility] 01-05-2025 History of Present illness Narrative Chanell hall [place] saw patient in clinic today to review [...] Continue BLT restrictions. documented in this encounter [facility] 01-05-2025 History of Present illness Narrative hCanell hall [place] saw patient in clinic today to review [...] T-Spine 2 Views. documented in this encounter [facility] 12-15-2024 Instructions Robby Castrejon PA-C - 12/15/2024 11:53 AM EST Clinically stable. Recommend he try turning stimulator up to setting of 5 and if no improvement after several days to contact Chanell hall [employer] to discuss settings. The erythema to his thoracic surgical site is markedly improved. Pt advised to have him or his spouse monitor site for any changes, immediately notify office/seek emergency department treatment with any increased erythema, or if swelling discharge dehiscence fever chills intractable pain or weakness. Offered patient follow up prior to his trip to [place] december and he opts to follow up shortly on his return in January. Call with any questions or concerns in the interim. documented in this encounter [facility] 12-15-2024 Note Neurosurgery Progres s Note Assessment/Plan: [...] after several days to contact Chanell hall [employer] to discuss settings. The erythema to his thoracic surgical site is markedly improved. Pt advised to have him or his spouse monitor site for any changes, immediately notify office/seek emergency department treatment with any increased erythema, or if swelling discharge dehiscence fever chills intractable pain or weakness. Offered patient follow up prior to his trip to [place] december and he opts to follow up [...] AUTHENTICATED BY ROBBY CASTREJON, ON 12/15/2024 11:53:31 [facility] 12-15-2024 History of Present illness Narrative Neurosurgery Progress Note Assessment/Plan: Thoracic [...] after several days to contact Chanell hall [employer] to discuss settings. The erythema to his [...] raise Normal gait documented in this encounter [facility] 12-09-2024 History of Present illness Narrative Presented today for mid thoracic [...] or any concerns. documented in this encounter [facility] 12-08-2024 Note Reviewed nursing not es today, will extend bactrim and see him back in my clinic next Friday12/15/24 sooner if needed. Can use benadryl ointment for pruritis. Reports no side effect to bactrim per RN. Will also order CBC ESR CRP to be completed today. AUTHENTICATED BY ROBBY CASTREJON, ON 12/08/2024 11:50:10 [facility] 12-08-2024 History of Present illness Narrative Reviewed nursing notes today, will extend bactrim and see him back in my clinic next Friday12/15/24 sooner if needed. Can use benadryl ointment for pruritis. Reports no side effect to bactrim per RN. Will also order CBC ESR CRP to be completed today. documented in this encounter [facility] 12-02-2024 Instructions Robby Castrejon PA-C - 12/02/2024 [...] with any questions. documented in this encounter [facility] 12-02-2024 Note Neurosurgery Progres s Note Assessment/Plan: [...] Neurosurgery Subjective: Presents for post operative appointment. [place] neuromodulator patient portal representative at appointment too with patient and [...] AUTHENTICATED BY ROBBY CASTREJON, ON 12/02/2024 14:07:44 [facility] 12-02-2024 History of Present illness Narrative Neurosurgery Progress Note Assessment/Plan: Thoracic [...] Call with any questions. Robby Castrejon PA-C [facility] [place] Subjective: Presents for post operative appointment. [place] neuromodulator patient portal representative at appointment too with patient and [...] raise Normal gait documented in this encounter [facility] 11-26-2024 History of Present illness Narrative Patient presents today for post [...] or any concerns. documented in this encounter [facility] 11-19-2024 Note DISCHARGE SUMMARY Patient: Tamra Guzman Date of : 1955 Site: [facility] Provider: Mike Aburto Chi, MD Admit Date: [...] malfunctioned. He has been interrogated by a patient portal representative from [employer] and noted to have multiple faults. Because [...] therapy and stimulator was programmed by device patient portal representative. He will discharge home today with [...] Family Provider: Mike Aburto Chi, MD, Address: [address] [place] [address] Follow Up: No follow-up provider specified. Additional Information: Patient instructions, including activity, were given to the patient/family at discharge. Please see the After Visit Summary in the electronic medical record for details. Time spent on discharge: < 30 minutes Completed by: Robby Castrejon PA-C on 11/19/24, 3:13 PM AUTHENTICATED BY ROBBY CASTREJON, ON 11/19/2024 15:14:09 [facility] 11-19-2024 Hospital course Narrative DISCHARGE SUMMARY Patient: Tamra Guzman Date of : 1955 Site: [facility] Family Provider: Mike Aburto Chi, MD Admit [...] malfunctioned. He has been interrogated by a patient portal representative from [employer] and noted to have multiple faults. Because [...] therapy and stimulator was programmed by device patient portal representative. He will discharge home today with [...] Family Provider: Mike Aburto Chi, MD, Address: [address] [place], [place] [id number] Follow Up: No follow-up provider specified. Additional Information: Patient instructions, including activity, were given to the patient/family at discharge. Please see the After Visit Summary in the electronic medical record for details. Time spent on discharge: < 30 minutes Completed by: Robby Castrejon PA-C on 11/19/24, 3:13 PM documented in this encounter [facility] 11-19-2024 Hospital Note Formatting of t his [...] malfunctioned. He has been interrogated by a patient portal representative from [employer] and noted to have multiple faults. Because [...] therapy and stimulator was programmed by device patient portal representative. He will discharge home today with close follow up next week. [facility] 11-19-2024 Miscellaneous Notes Tamra Guzman is a 69-year-old male who had at an outside institution a spinal cord stimulator system placed. He had excellent relief of his pain with 100% pain relief by his recollection from his axial lumbosacral spinal pain and leg pain. However, the system malfunctioned. He has been interrogated by a patient portal representative from [employer] and noted to have multiple faults. Because [...] therapy and stimulator was programmed by device patient portal representative. He will discharge home today with [...] 1955 (69 y.o.) Date of Service: 11/18/2024 [facility]: [id number] Procedure(s): Thoracic 9-10 Laminectomy, Removal Retained SCS Electrodes, Insertion of Paddle Lead Electrode via 9-10 laminectomy, Removal of Left Flank IPG, insertion of new Left Flank IPG. Pre-Operative Diagnoses: * Malfunction of spinal cord stimulator, initial encounter [T85.192A] Post-Operative Diagnoses: * Malfunction of spinal cord stimulator, initial encounter [T85.192A] Surgeons and Role: * Andrew Guzman MD - Primary Anesthesiologist: Ari Hernandez MD STUDIO TECHNICIAN: Brown Young CRNA Grass Farmer: Lisandro Starr RN Sole Molding Machine Operator: Lashae Lopez, TECHNOLOGIST Grass Farmer Relief: Belkis Macias RN Scrub Person: Celia Castillo ST Anesthesia Specialist: Andra Elizabeth Embroiderer Hand: Nadia Christine Wendy E, PSA Scrub Person Assist: Nadia Aquino RN Operative findings: Epidural scarring. Intra and immediate post-operative complications: none Type of anesthesia used: General Estimated blood loss: 300 mL Estimated urine output: Refer to surgical log Specimen(s): * No specimens in log * Implant(s): Implant Name Type Inv. Item Serial No. Set Decorator Lot No. LRB No. Used Action HEMOSTAT 2 X 4IN SURGICEL FIBRILLAR - [id number] HEMOSTAT 2 X 4IN SURGICEL FIBRILLAR ETHICON [id number] N/A 1 Implanted HEMOSTAT 8 X 12.5CM X 10MM SURGIFOAM GELATIN SPONGE - [id number] HEMOSTAT 8 X 12.5CM X 10MM SURGIFOAM GELATIN SPONGE ETHICON N/A 1 Implanted HEMOSTAT 4 X 8IN SURGICEL ORIGINAL ABSORBABLE - [id number] HEMOSTAT 4 X 8IN SURGICEL ORIGINAL ABSORBABLE Ho & Ho [id number] N/A 1 Implanted LEAD 60CM PENTA - [id number] LEAD 60CM PENTA [id number] [place] N/A 1 Implanted SEALANT 5ML HEMOSTATIC MATRIX FAST PREP FLOSEAL W/ RECOTHROM - [id number] SEALANT 5ML HEMOSTATIC MATRIX FAST PREP FLOSEAL W/ RECOTHROM SHAHID BIO [id number] N/A 1 Implanted SEALANT 5ML HEMOSTATIC MATRIX FAST PREP FLOSEAL W/ RECOTHROM - [id number] SEALANT 5ML HEMOSTATIC MATRIX FAST PREP FLOSEAL W/ RECOTHROM SHAHID BIO [id number] N/A 1 Implanted GENERATOR NEUROSTIMULATOR IMPLANTABLE XR5 PROCLAIM - [id number] GENERATOR NEUROSTIMULATOR IMPLANTABLE XR5 [id number] [place] N/A 1 Implanted Drain(s): * No LDAs found * Wound(s): Wound 11/18/24 Surgical Wound Thoracic Spine (Active) Dressing Status Clean;Dry;Intact 11/18/24 1426 Drainage Amount None 11/18/24 1426 Wound Closure Sutures;Surgical Adhesive 10/22/24 0002 Andrew Guzman MD 11/18/2024 2:32 PM TAMRA GUZMAN [facility] [id number] 1955 DATE 11/18/2024 OPERATIVE REPORT SURGEON ANDREW [...] malfunctioned. He has been interrogated by a patient portal representative from [employer] and noted to have multiple faults. Because [...] anchor boots that had been left previously. [place] boots were freed from anchor sutures, and [...] the headers. Initial interrogation by the Driver patient portal representative did demonstrate 3 high impedance contacts, [...] condition. ANDREW GUZMAN MD D 11/18/2024 14:23 [id number] T 11/18/2024 15:38 [facility] documented in this encounter [facility] 11-19-2024 Plan of care note Physical Therapy [...] - 11/19/2024 3:11 PM EST I attest. [facility] 11-19-2024 Note Admitted with these risk variables:None. [...] dry with no drainage. AUTHENTICATED BY ANDREW GUZMNA, ON 11/19/2024 08:44:27 [facility] 11-19-2024 History of Present illness Narrative Admitted with these risk variables:None. [...] with no drainage. documented in this encounter [facility] 11-19-2024 Consult note Formatting of th is note is different from the original. Physical Therapy PHYSICAL THERAPY EVALUATION and TREATMENT NOTE PHYSICAL THERAPY EVALUATION Skilled Therapy Needs After Discharge Anticipate Resolution of Current Assessment Limitations Including: Pain, Mechanical Barriers, Social Support Are wire coating machine operator Therapy Services Needed After Discharge: Yes Intensity of wire coating machine operator Therapy: 2-3 days per week Anticipated Duration of wire coating machine operator Therapy: Duration 10 - 30 days PT [...] Static: Stand by assist, Contact guard assist Microwave Remote Sensing Scientist - Standing Static: wheeled walker Loss of Balance- Standing Static: intermittent Standing Balance - Dynamic: Stand by assist, Contact guard assist Microwave Remote Sensing Scientist - Standing Dynamic: wheeled walker Loss of Balance- Standing Dynamic: intermittent Bed Mobility Rolling: Stand by assist, Head of bed flat (needing increased time and effort) Supine to Sit: Supervision, Head of bed flat (needing increased time and effort) Microwave Remote Sensing Scientist: bedrails Transfers Sit to Stand: Stand by assist, Contact guard assist Microwave Remote Sensing Scientist: wheeled walker Toilet Transfers: Stand by assist, [...] Hand-held showerhead Mobility Equipment: Cane ADL Equipment: Restaurant Assistant Manager Additional Objective Details - Home Living: Pt reports standing to shower with use of grab bars and sleeping in a standard loyda size bed with no use of bed rails. Prior Level of Function Receives Help From: Spouse (as needed) Level of Geary - Transfers/Ambulation/Mobility: Independent with functional transfers, Independent with household ambulation, Independent with community ambulation Level of Geary - ADLs: Independent Level of Geary - Homemaking: Independent Driving: Patient drives Vocational: [...] hospital or completion of Physical Therapy Plan. [facility] 11-19-2024 Consult note Formatting of th is note is different from the original. Physical Therapy PHYSICAL THERAPY EVALUATION and TREATMENT NOTE PHYSICAL THERAPY EVALUATION Skilled Therapy Needs After Discharge Anticipate Resolution of Current Assessment Limitations Including: Pain, Mechanical Barriers, Social Support Are wire coating machine operator Therapy Services Needed After Discharge: Yes Intensity of wire coating machine operator Therapy: 2-3 days per week Anticipated Duration of wire coating machine operator Therapy: Duration 10 - 30 days PT [...] Static: Stand by assist, Contact guard assist Microwave Remote Sensing Scientist - Standing Static: wheeled walker Loss of Balance- Standing Static: intermittent Standing Balance - Dynamic: Stand by assist, Contact guard assist Microwave Remote Sensing Scientist - Standing Dynamic: wheeled walker Loss of Balance- Standing Dynamic: intermittent Bed Mobility Rolling: Stand by assist, Head of bed flat (needing increased time and effort) Supine to Sit: Supervision, Head of bed flat (needing increased time and effort) Microwave Remote Sensing Scientist: bedrails Transfers Sit to Stand: Stand by assist, Contact guard assist Microwave Remote Sensing Scientist: wheeled walker Toilet Transfers: Stand by assist, [...] Hand-held showerhead Mobility Equipment: Cane ADL Equipment: Restaurant Assistant Manager Additional Objective Details - Home Living: Pt reports standing to shower with use of grab bars and sleeping in a standard loyda size bed with no use of bed rails. Prior Level of Function Receives Help From: Spouse (as needed) Level of Geary - Transfers/Ambulation/Mobility: Independent with functional transfers, Independent with household ambulation, Independent with community ambulation Level of Geary - ADLs: Independent Level of Geary - Homemaking: Independent Driving: Patient drives Vocational: [...] Physical Therapy Plan. documented in this encounter [facility] 11-18-2024 Plan of care note Problem: Actual [...] level of psychosocial functioning Outcome: Partially Met [facility] 11-18-2024 Procedure note Brief Post Operative Note Patient Name: Tamra Guzman : 1955 (69 y.o.) Date of Service: 11/18/2024 [facility]: [id number] Procedure(s): Thoracic 9-10 Laminectomy, Removal Retained SCS Electrodes, Insertion of Paddle Lead Electrode via 9-10 laminectomy, Removal of Left Flank IPG, insertion of new Left Flank IPG. Pre-Operative Diagnoses: * Malfunction of spinal cord stimulator, initial encounter [T85.192A] Post-Operative Diagnoses: * Malfunction of spinal cord stimulator, initial encounter [T85.192A] Surgeons and Role: * Andrew Guzman MD - Primary Anesthesiologist: Ari Hernandez MD STUDIO TECHNICIAN: Brown Young CRNA Grass Farmer: Lisandro Starr RN Sole Molding Machine Operator: Lashae Lopez, TECHNOLOGIST Grass Farmer Relief: Belkis Macias RN Scrub Person: Celia Castillo ST Anesthesia Specialist: Andra Elizabeth Embroiderer Hand: Nadia Christine Wendy E, PSA Scrub Person Assist: Nadia Aquino RN Operative findings: Epidural scarring. Intra and immediate post-operative complications: none Type of anesthesia used: General Estimated blood loss: 300 mL Estimated urine output: Refer to surgical log Specimen(s): * No specimens in log * Implant(s): Implant Name Type Inv. Item Serial No. Set Decorator Lot No. LRB No. Used Action HEMOSTAT 2 X 4IN SURGICEL FIBRILLAR - [id number] HEMOSTAT 2 X 4IN SURGICEL FIBRILLAR ETHICON [id number] N/A 1 Implanted HEMOSTAT 8 X 12.5CM X 10MM SURGIFOAM GELATIN SPONGE - [id number] HEMOSTAT 8 X 12.5CM X 10MM SURGIFOAM GELATIN SPONGE ETHICON N/A 1 Implanted HEMOSTAT 4 X 8IN SURGICEL ORIGINAL ABSORBABLE - [id number] HEMOSTAT 4 X 8IN SURGICEL ORIGINAL ABSORBABLE Ho & Ho [id number] N/A 1 Implanted LEAD 60CM PENTA - [id number] LEAD 60CM PENTA [id number] [place] N/A 1 Implanted SEALANT 5ML HEMOSTATIC MATRIX FAST PREP FLOSEAL W/ RECOTHROM - [id number] SEALANT 5ML HEMOSTATIC MATRIX FAST PREP FLOSEAL W/ RECOTHROM SHAHID BIO [id number] N/A 1 Implanted SEALANT 5ML HEMOSTATIC MATRIX FAST PREP FLOSEAL W/ RECOTHROM - [id number] SEALANT 5ML HEMOSTATIC MATRIX FAST PREP FLOSEAL W/ RECOTHROM SHAHID BIO [id number] N/A 1 Implanted GENERATOR NEUROSTIMULATOR IMPLANTABLE XR5 PROCLAIM - [id number] GENERATOR NEUROSTIMULATOR IMPLANTABLE XR5 PRO[address] [id number] [facility] [place] N/A 1 Implanted Drain(s): * No LDAs found * Wound(s): Wound 11/18/24 Surgical Wound Thoracic Spine (Active) Dressing Status Clean;Dry;Intact 11/18/24 1426 Drainage Amount None 11/18/24 1426 Wound Closure Sutures;Surgical Adhesive 10/22/24 0002 Andrew Guzman MD 11/18/2024 2:32 PM [facility] 11-18-2024 Nurse Surgical operation note Explanted generator and leads from previous procedure. Disposed of in trash. [facility] 11-18-2024 Nurse Note Explanted generator and leads from previous procedure. Disposed of in trash. documented in this encounter [facility] 11-18-2024 Procedure note TAMRA GUZMAN [facility] [id number] 1955 DATE 11/18/2024 OPERATIVE REPORT SURGEON ANDREW [...] malfunctioned. He has been interrogated by a patient portal representative from [employer] and noted to have multiple faults. Because [...] anchor boots that had been left previously. [place] boots were freed from anchor sutures, and [...] the headers. Initial interrogation by the Driver patient portal representative did demonstrate 3 high impedance contacts, [...] and transferred to PACU in stable condition. MD Nick ADAN 11/18/2024 14:23 [id number] T 11/18/2024 15:38 [facility] 11-18-2024 Attending History and physical note INTERVAL HISTORY AND PHYSICAL Patient Name: Tamra Guzman Admit Date: [id number] MR #: [id number] : 1955 The H&P has been reviewed [...] system placed at an outside institution in [place] in 2021. Unfortunately the system is malfunctioning [...] note from his pain management physician in [place] indicated as well that the most superior [...] reconstructive spinal surgery. He is managed by boom operator in [facility]. He states his manifestations of polymyalgia rheumatica are pain everywhere. Medications and AR. Allergies to bee pollen. Psychosocial review. 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 He lives in the [facility] with his . Physical Exam Awake alert [...] are 5 out of 5 and symmetric. Medical Review Specialist strength is 5 out of 5 and [...] intervention as outlined above. Andrew Guzman MD [facility] 11-18-2024 History and physical note INTERVAL HISTORY AND PHYSICAL Patient Name: Tamra Guzman Admit Date: [id number] MR #: [id number] : 1955 The H&P has been reviewed [...] system placed at an outside institution in [place] in 2021. Unfortunately the system is malfunctioning [...] note from his pain management physician in [place] indicated as well that the most superior [...] reconstructive spinal surgery. He is managed by boom operator in [facility]. He states his manifestations of polymyalgia rheumatica are pain everywhere. Medications and AR. Allergies to bee pollen. Psychosocial review. 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 He lives in the [facility] with his . Physical Exam Awake alert [...] are 5 out of 5 and symmetric. Medical Review Specialist strength is 5 out of 5 and [...] system placed at an outside institution in [place] in 2021. Unfortunately the system is malfunctioning [...] note from his pain management physician in [place] indicated as well that the most superior [...] reconstructive spinal surgery. He is managed by boom operator in [facility]. He states his manifestations of polymyalgia rheumatica are pain everywhere. Medications and AR. Allergies to bee pollen. Psychosocial review. 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 He lives in the [place] with his . Physical Exam Awake alert [...] are 5 out of 5 and symmetric. Medical Review Specialist strength is 5 out of 5 and [...] Andrew Guzman MD documented in this encounter [facility] 11-18-2024 History and physical note Neurosurgical preoperative history and physical for procedure of 11/18/2024. Chief complaint. Malfunctioning spinal cord stimulator. History of present illness. Tamra Francis is a 69-year-old male who had a Driver percutaneous spinal cord stimulator lead system placed at an outside institution in [place] in 2021. Unfortunately the system is malfunctioning [...] note from his pain management physician in [place] indicated as well that the most superior [...] reconstructive spinal surgery. He is managed by boom operator in [facility]. He states his manifestations of polymyalgia rheumatica are pain everywhere. Medications and AR. Allergies to bee pollen. Psychosocial review. 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 He lives in the [facility] with his . Physical Exam Awake alert [...] are 5 out of 5 and symmetric. Medical Review Specialist strength is 5 out of 5 and [...] intervention as outlined above. Andrew Guzman MD [facility] 11-18-2024 Note Neurosurgical preope rative history and physical for procedure of 11/18/2024. Chief complaint. Malfunctioning spinal cord stimulator. History of present illness. Tmara Francis is a 69-year-old male who had a Driver percutaneous spinal cord stimulator lead system placed at an outside institution in [place] in 2021. Unfortunately the system is malfunctioning [...] note from his pain management physician in [place] indicated as well that the most superior [...] reconstructive spinal surgery. He is managed by boom operator in [facility]. He states his manifestations of polymyalgia rheumatica are pain everywhere. Medications and AR. Allergies to bee pollen. Psychosocial review. 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 He lives in the [facility] with his . Physical Exam Awake alert [...] are 5 out of 5 and symmetric. Medical Review Specialist strength is 5 out of 5 and [...] retrieve the leads (more content not included)... [facility] 10-28-2024 History of Present illness Narrative Images from the original note [...] well as the office phone number and planner scheduler's number. documented in this encounter [facility] 10-28-2024 Note Pre-Operative H&P Assessment and Plan [...] Preprocedure Sleep Apnea Assessment - High Risk (3/3) Sleep Apnea in the patient's Active Problem List or Medical History: yes 1. History of apparent airway obstruction during sleep: (1 point for this category) No data recorded 2. Somnolence of the patient: (1 point for this category) No data recorded 3. Predisposin (more content not included)... [facility] 10-08-2024 History of Present illness Narrative No chief complaint on file. Nonfunctioning spinal cord stimulator. RAGHAV Francis is a 69-year-old male who had a Driver percutaneous spinal cord stimulator lead system placed at an outside institution in [place] in 2021. Unfortunately the system is malfunctioning [...] note from his pain management physician in [place] indicated as well that the most superior [...] reconstructive spinal surgery. He is managed by boom operator in [facility]. He states his manifestations of polymyalgia rheumatica are pain everywhere. Medications and AR. Allergies to bee pollen. Psychosocial review. 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 He lives in the [facility] with his . Physical Exam Awake alert [...] are 5 out of 5 and symmetric. Medical Review Specialist strength is 5 out of 5 and [...] Andrew Guzman MD documented in this encounter [facility] 10-08-2024 Note No chief complaint o n file. Nonfunctioning spinal cord stimulator. RAGHAV Francis is a 69-year-old male who had a Driver percutaneous spinal cord stimulator lead system placed at an outside institution in [place] in 2021. Unfortunately the system is malfunctioning [...] note from his pain management physician in [place] indicated as well that the most superior [...] reconstructive spinal surgery. He is managed by boom operator in [facility]. He states his manifestations of polymyalgia rheumatica are pain everywhere. Medications and AR. Allergies to bee pollen. Psychosocial review. 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 He lives in the [facility] with his . Physical Exam Awake alert [...] are 5 out of 5 and symmetric. Medical Review Specialist strength is 5 out of 5 and [...] type of co (more content not included)... [facility] 09-30-2024 Note Addended by: AHMET FRANCES on: 09/30/2024 10:21 AM Modules accepted: Orders [facility] 09-30-2024 Note Addended by: AHMET FRANCES on: 09/30/2024 10:21 AM Modules accepted: Orders [facility] 09-30-2024 Miscellaneous Notes Addended by: AHMET FRANCES on: 09/30/2024 10:21 AM Modules accepted: Orders documented in this encounter [facility] 09-30-2024 Note Patient Information: Tamra Guzman is a 69 y.o. male 1955 HPI Patient is a 69-year-old male presenting for evaluation of his spinal cord stimulator. Patient reports that he does have a history of an Driver spinal cord stimulator being placed in 2021 by his pain management physician in [place]. He reports at that time he did [...] his stimulator by the spinal cord similar patient portal representative, it was found that there was [...] 2021 by his pain management physician in [place] for low back pain and right lower extremity pain. Unfortunately over the last several months he has had recurrence of his pain and feels the stimulator is no longer working for him. He was scheduled for an MRI but his stimulator was unable to be put in MRI mode. Upon further interrogation of his stimulator by his spinal cord stimulator patient portal representative, it was determined that there were [...] and report from the spinal cord stimulator patient portal representative pushed over to our office for [...] call with any questions. AUTHENTICATED BY AHMET FRANCES ON 09/30/2024 10:21:03 [facility] 09-30-2024 History of Present illness Narrative Patient Information: Tamra Guzman is a 69 y.o. male 1955 HPI Patient is a 69-year-old male presenting for evaluation of his spinal cord stimulator. Patient reports that he does have a history of an Driver spinal cord stimulator being placed in 2021 by his pain management physician in [place]. He reports at that time he did [...] his stimulator by the spinal cord similar patient portal representative, it was found that there was [...] 2021 by his pain management physician in [place] for low back pain and right lower extremity pain. Unfortunately over the last several months he has had recurrence of his pain and feels the stimulator is no longer working for him. He was scheduled for an MRI but his stimulator was unable to be put in MRI mode. Upon further interrogation of his stimulator by his spinal cord stimulator patient portal representative, it was determined that there were [...] and report from the spinal cord stimulator patient portal representative pushed over to our office for [...] with any questions. documented in this encounter [facility] 09-30-2024 History of Present illness Narrative Patient Information: Tamra Guzman is a 69 y.o. male 1955 HPI Patient is a 69-year-old male presenting for evaluation of his spinal cord stimulator. Patient reports that he does have a history of an Driver spinal cord stimulator being placed in 2021 by his pain management physician in [place]. He reports at that time he did [...] his stimulator by the spinal cord similar patient portal representative, it was found that there was [...] 2021 by his pain management physician in [place] for low back pain and right lower extremity pain. Unfortunately over the last several months he has had recurrence of his pain and feels the stimulator is no longer working for him. He was scheduled for an MRI but his stimulator was unable to be put in MRI mode. Upon further interrogation of his stimulator by his spinal cord stimulator patient portal representative, it was determined that there were [...] and report from the spinal cord stimulator patient portal representative pushed over to our office for [...] with any questions. documented in this encounter [facility] 11-03-2023 Discharge summary Note Date/Time November 03, 2023 12:00pm [facility] Medical Records Department [address] [place] [address] Discharge Summary 11/03/23 1159 MR#: [id number] Acct: [id number] Name: TAMRA GUZMAN Rep #:[id number] : 1955 68 From: Von Park MD PCP: Dr. Mike Aburto MD Status:ADM I NO Location: MS3 MA124-3 Providers Date of Admission: 11/02/23 Date of [...] 40 mg tablet 40 mg PO DAILY 01/15/24 memantine 10 mg tablet 10 mg PO [...] 73.7 H, Lymph % (Auto) 18.1 L, [place] % (Auto) 6.1, Eos % (Auto) 1.7, [...] Self Care Charges/Coding Visit Charges Inpatient E&M: 52030 Disch Hosp >30min 11/03/23 1200 <Electronically signed by Von Park MD> Cosigner Signature (if applicable): CC: Dr. Von Park MD; Dr. Mike Aburto MD~ Signed [facility] Work Phone: 1(191) 667-768601-22-2024 Progress note Author Von Park [facility] November 03, 2023 8:12am Note Date/Time November 03, 2023 8 :07am [facility] Medical Records Department [address] [place] [address] Progress Note - Hospitalist 11/03/23805 MR#: [id number] Acct: [id number] Name: TAMRA GUZMAN Rep #:[id number] : 1955 68 From: Von Park MD PCP: Dr. Mike Aburto MD Status:ADM I NO Location: MA3 BE422-0 Reason for Visit Reason for Visit: Diagnoses [...] 73.7 H, Lymph % (Auto) 18.1 L, [place] % (Auto) 6.1, Eos % (Auto) 1.7, [...] documentation,35 minutes Charges/Coding Visit Charges Inpatient E&M: 66765 Subs Hosp L2 11/03/23 0812 <Electronically signed by Von Park MD> Cosigner Signature (if applicable): CC: ~ Signed [facility] Work Phone: 1(236) 343-632601-21-2024 History and physical note Author Mitra Martinez [facility] November 02, 2023 9:43am Note Date/Time November 02, 2023 9 :30am [facility] Medical Records Department [address] [place] [address] [place] [address] H&P Exam - Hospitalist 11/02/23 0928 MR#: [id number] Acct: [id number] Name: TAMRA GUZMAN Rep #:[id number] : 1955 68 From: Mitra Martinez MD PCP: Dr. Mike Aburto MD Status:ADM I NO Location[place] [facility] UT083-1 HPI - General General Date of Admission: 11/02/23 Date of Service: 11/02/23 Chief Complaint: Vertigo HPI Narrative TAMRA GUZMAN, is a 68-year-old male history of cochlear implant, GERD, PMR, mild cognitive impairment, sleep apnea, hypertension, presented to [facility] 11/02/2023 with vertigo, nausea, vomiting with a [...] had not had the symptoms until Friday. [facility] Medical History (Updated 11/02/23 @ 05:50 by [...] deficits, cranial nerves II through XII intact, bdlgkv-cn-vaju without significant difficulty bilaterally Skin: No rashes [...] % (Auto) 60.5, Lymph % (Auto) 27.7, [place] % (Auto) 8.4, Eos % (Auto) 2.6, [...] documentation, 57minutes Charges/Coding Visit Charges Inpatient E&M: 89274 Init Hosp L2 11/02/23 0943 <Electronically signed by Mitra Martinez MD> Cosigner Signature (if applicable): CC: Dr. Mitra Martinez MD; Dr. Mike Aburto MD~ Signed [facility] Work Phone: 1(736) 151-120201-21-2024 Discharge summary Author Peter Listerman [facility] November 02, 2023 9:26am Note Date/Time November 02, 2023 5 :50am [facility] Medical Records Department [address] [place] [address] Emergency Department Summary 11/02/23 MR#: [id number] Acct: [id number] Name: TAMRA GUZMAN Rep #:[id number] : [...] himself. He is not on blood thinners. [facility] Medical History (Updated 11/02/23 @ 05:50 [...] mild elevation of glucose at 128. Patient's dnzaq-gs-qqdv glucose was 114. Patient is feeling better [...] % (Auto) 60.5 Lymph % (Auto) 27.7 [place] % (Auto) 8.4 Eos % (Auto) 2.6 [...] 6:22 EST Reading Location ID and State: [facility] / [place] , Service support , Discharge Plan Triage [...] Care Provider: Mike Aburto Chi Referrals: Mike Abruto Chi, MD [Primary Care Provider] - 3-5 Days Disposition Disposition: Acute Care Hospital [facility] What to do if you have Problems For any increased pain, shortness of breath, bleeding, nausea or vomiting, chestpain, or any unexpected problems, contact your Primary Care Provider. Call [facility] ([phone]) or report to the closest Emergency Room. Call 911 if necessary. 11/02/23925 <Electronically signed by Arik Cade MD> Cosigner Signature (if applicable): CC: Dr. Mike Aburto MD ~ Signed [facility] Work Phone: 1(771) 566-341401-21-2024 Discharge summary Author Arik Cade [facility] November 02, 2023 9:26am Note Date/Time November 02, 2023 5 :50am [facility] Medical Records Department [facility] [place] [address] Emergency Department Summary 11/02/23 MR#: [id number] Acct: [id number] Name: TAMRA GUZMAN Rep #:[id number] : [...] himself. He is not on blood thinners. [facility] Medical History (Updated 11/02/23 @ 05:50 [...] mild elevation of glucose at 128. Patient's dcwgp-xl-whvr glucose was 114. Patient is feeling better [...] % (Auto) 60.5 Lymph % (Auto) 27.7 [place] % (Auto) 8.4 Eos % (Auto) 2.6 [...] Shayne Brady MD at 6:22 EST , Discharge Plan Triage Chief Complaint: Dizziness [...] 3-5 Days Disposition Disposition: Acute Care Hospital [facility] What to do if you have Problems For any increased pain, shortness of breath, bleeding, nausea or vomiting, chestpain, or any unexpected problems, contact your Primary Care Provider. Call [facility] ([phone]) or report to the closest Emergency Room. Call 911 if necessary. 11/02/23925 <Electronically signed by Arik Cade MD> Cosigner Signature (if applicable): CC: Dr. Mike Aburto MD ~ Signed [facility] Work Phone: 1(909) 228-213308-15-2023 History and physical note Author Roel Black [facility] May 27, 2023 1:38pm Note Date/Time May 27, 2023 1: 38pm [facility] [address] [place] [address] H&P Exam - Wound Care 05/27/23 1325 MR#: [id number] Acct: [id number] Name: TAMRA GUZMAN Rep #:[id number] : [...] the urgent care center at the [facility] on April 19, 2023, and was then [...] night. He denies a history of thrombophlebitis. [facility] Medical History Alzheimer's disease Chronic cough Dysphagia [...] Date Recorded By Document 05/27/23 09:49 MW [id number] 05/27/23 10:00 MW 05/27/23 09:49 WC - Today's Visit Information Type of service Follow-up Visit (Physician/DOCTOR OF DENTAL SURGERY ) Arrival Mode Ambulatory Transfer Assistance None [...] Date Recorded By Document 05/27/23 09:49 MW [id number] 05/27/23 10:00 MW 05/27/23 09:49 Wound Center [...] Date Recorded By Document 05/13/23 12:30 PL [id number] 05/13/23 12:32 PL Document 05/27/23 12:22 PL [id number] 05/27/23 12:23 PL 05/13/23 05/27/23 12:30 12:22 [...] Date Recorded By Document 05/13/23 09:47 DL [id number] 05/13/23 09:48 DL 05/13/23 09:47 Wound Care [...] the urgent care facility at the [facility], as well as by [facility] care physician. 3 courses of oral antibiotics [...] Cosigner Signature (if applicable): CC: ~ Signed [facility] Work Phone: 1(286) 926-612408-01-2023 History and physical note Author Roel Black [facility] May 13, 2023 3:12pm Note Date/Time May 13, 2023 2:3 5pm [facility] [address] [place] [address] H&P Exam - Wound Care 05/13/23 1431 MR#: [id number] Acct: [id number] Name: TAMRA GUZMAN Rep #:[id number] : [...] the urgent care center at the [facility] on April 19, 2023, and was then [...] night. He denies a history of thrombophlebitis. [facility] Medical History Alzheimer's disease Chronic cough Dysphagia [...] recent minor lesion excisions by the patient's research agricultural engineer, Dr. Taj Boothe. Neuro oriented x3, CN's [...] Date Recorded By Document 05/13/23 12:30 PL [id number] 05/13/23 12:32 PL 05/13/23 12:30 Wound Center [...] Date Recorded By Document 05/13/23 09:47 DL [id number] 05/13/23 09:48 DL 05/13/23 09:47 Wound Care Center Nurse 3 #1 right diana -Ulcer Cleansing Rinsed/ Irrigated with Saline -Foul Odor after Cleansing No -Primary Dressing Applied Mepilex Border, Promogran -Mepilex Border 1 -Promogran 1 Treatment Response Procedure Tolerated Well Pain Scale: 0-10 Numeric Is Patient Pain Free? Yes WC - Visit Discharge Discharge Condition Stable Ambulatory [...] the urgent care facility at the [facility], as well as by [facility] care physician. 3 courses of oral antibiotics [...] of Epi[employer]. Total time: 24 minutes 05/13/23 1454 <Electronically signed by Roel Black MD> Cosigner Signature (if applicable): CC: ~ Signed [facility] Work Phone: 1(526) 741-146407-25-2023 History and physical note Author Roel Black [facility] May 06, 2023 8:45am Note Date/Time May 06, 2023 8:45 am [facility] [address] [place] [address] H&P Exam - Wound Care 05/06/23 0841 MR#: [id number] Acct: [id number] Name: TAMRA GUZMAN Rep #:[id number] : [...] the urgent care center at the [facility] on April 19, 2023, and was then [...] night. He denies a history of thrombophlebitis. [facility] Medical History Alzheimer's disease Chronic cough Dysphagia [...] Date Recorded By Document 04/29/23 08:11 MW [id number] 04/29/23 08:30 MW Document 05/06/23 08:11 DL [id number] 05/06/23 08:16 DL 04/29/23 05/06/23 08:11 08:11 WC - Today's Visit Information Type of service Initial Visit Follow-up Visit (Physician/DOCTOR OF DENTAL SURGERY ) Arrival Mode Ambulatory Ambulatory Transfer Assistance [...] Bottom <Entered> (a) Communication Assessment Preferred language Algerian Automobile Service Advisor Required No Able to Read Yes Able [...] Any Declines Assistive Device With Patient No Culture/[place]atsdin/Drainage Design Coordinator Cultural/Uatsdin Needs that may affect No Treatment Plan Would you allow our hospital picture engraver to No meet you for the purpose of spiritual/ emotional support? Drainage Design Coordinator to contact place of holiness No (a) 1 - - 2 - + 3 - + WC - Nurse 1 - General Ulcer Measurement Start: 04/29/23 08:11 Freq: Status: Active Protocol: Activity Type Activity Date Activity User E-sign Co-sign Detail Recorded Client Recorded Date Recorded By Document 04/29/23 08:11 MW [id number] 04/29/23 08:30 MW Document 05/06/23 08:11 DL [id number] 07/25/23 08:16 DL 04/29/23 05/06/23 08:11 08:11 Wound [...] (0 Medium (34-66%) %) -Granulation Quality N/A Pale,Fanshawe -Slough/Fibrin Yes -Necrosis Amt Large (67-100%) Medium [...] Recorded Date Recorded By Document 04/29/23 11:52 PL [id number] 04/29/23 11:55 PL 04/29/23 11:52 Wound Center [...] Date Recorded By Document 04/29/23 09:12 DL [id number] 04/29/23 09:14 DL Document 05/06/23 08:35 MW [id number] 05/06/23 08:36 MW 04/29/23 05/06/23 09:12 08:35 [...] the urgent care facility at the [facility], as well as by [facility] care physician. 3 courses of oral antibiotics [...] Cosigner Signature (if applicable): CC: ~ Signed [facility] Work Phone: 1(218) 387-794507-18-2023 History and physical note Author Roel Black [facility] April 29, 2023 9:21am Note Date/Time April 29, 2023 9:21 am [facility] [address] [place] [address] H&P Exam - Wound Care 04/29/23 0902 MR#: [id number] Acct: [id number] Name: TAMRA GUZMAN Rep #:[id number] : [...] the urgent care center at the [facility] on April 19, 2023, and was then [...] night. He denies a history of thrombophlebitis. [facility] Medical History Alzheimer's disease Chronic cough Dysphagia [...] Date Recorded By Document 04/29/23 08:11 MW [id number] 04/29/23 08:30 MW 04/29/23 08:11 WC - [...] Bottom <Entered> (a) Communication Assessment Preferred language [place]ian Automobile Service Advisor Required No Able to Read Yes Able [...] Any Declines Assistive Device With Patient No Culture/Uatsdin/Drainage Design Coordinator Cultural/Uatsdin Needs that may affect No Treatment Plan Would you allow our hospital picture engraver to No meet you for the purpose of spiritual/ emotional support? Drainage Design Coordinator to contact place of holiness No (a) 1 - - 2 - + 3 - + WC - Nurse 1 - General Ulcer Measurement Start: 04/29/23 08:11 Freq: Status: Active Protocol: Activity Type Activity Date Activity User E-sign Co-sign Detail Recorded Client Recorded Date Recorded By Document 04/29/23 08:11 MW [id number] 04/29/23 08:30 MW 04/29/23 08:11 Wound Center [...] the urgent care facility at the [facility], as well as by [facility] care physician. 3 courses of oral antibiotics [...] week for reassessment. Total time: 46 minutes 04/29/23 0966 <Electronically signed by Roel Black MD> Cosigner Signature (if applicable): CC: ~ Signed [facility] Work Phone: 1(524) 304-723407-08-2023 NoteHNO ID: [id number] Author: Jeffrey Bethea APRN.DOCTOR OF DENTAL SURGERY Service: ? Author Type: Nurse Practitioner Type: Progress Notes Filed: 04/19/2023 11:31 AM Note Text: Subjective HPI HPI Nam Guzman is a 68 year old male who presents today for CC of right leg skin tear, now red. This started 1 week ago. Has tried nothing for relief. Symptoms are worsened by nothing. Denies diabetes. Patient not known to [facility], denies renal/hepatic disease. .Patient presents with: [...] - CEPHALEXIN 500 MG CAPSULE Jeffrey Bethea APRN.CNPUniversity Hospitals Conneaut Medical CenterEvaluation noteNo assessment information availableWUniversity Hospitals Ahuja Medical Center Work Phone: Evaluation note* Diagnosis Onset Date Resolution Status Alzheimer's disease acute Dysphagia acute Esophageal stenosis acute GERD (gastroesophageal reflux disease) acute Hearing loss acute Hiatal hernia acute History of total bilateral knee replacement acute Hyperlipidemia acute Mild cognitive impairment ac [place] Pancreatic cyst acute Peripheral nerve neurostimulator device in situ acute Polymyalgia rheumatica acute Sleep apnea treated with con tinuous positive airway pressure (CPAP) acute Spinal stenosis at L4-L5 level acute Traumatic open wound of right lower leg acute Chronic cough chronic Hypertension [facility] Work Phone: Evaluation note* Diagnosis Onset Date Resolution Status Alzheimer's disease acute Dysphagia acute Esophageal stenosis acute GERD (gastroesophageal reflux disease) acute Hearing loss acute Hiatal hernia acute History of total bilateral knee replacement acute Hyperlipidemia acute Mild cognitive impairment ac [place] Pancreatic cyst acute Peripheral nerve neurostimulator device [...] acute Hyperlipidemia acute Mild cognitive impairment ac [place] Pancreatic cyst acute Peripheral nerve neurostimulator device in situ acute Polymyalgia rheumatica acute Sleep apnea treated with con tinuous positive airway pressure (CPAP) acute Spinal stenosis at L4-L5 level acute Traumatic open wound of right lower leg acute Chronic cough chronic Hypertension chronic 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 Work Phone: Evaluation note* Diagnosis Onset Date Resolution Status Alzheimer's disease acute Dysphagia acute Esophageal stenosis acute GERD (gastroesophageal reflux disease) acute Hearing loss acute Hiatal hernia acute History of total bilateral knee replacement acute Hyperlipidemia acute Mild cognitive impairment ac [place] Pancreatic cyst acute Peripheral nerve neurostimulator device [...] acute Hyperlipidemia acute Mild cognitive impairment ac [place] Pancreatic cyst acute Peripheral nerve neurostimulator device in situ acute Polymyalgia rheumatica acute Sleep apnea treated with con tinuous positive airway pressure (CPAP) acute Spinal stenosis at L4-L5 level acute Traumatic open wound of right lower leg acute Chronic cough chronic Hypertension chronic 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 Acute maxillary sinusitis, unspecified acute [facility] Work Phone: Evaluation note* Diagnosis Onset Date Resolution Status Acute maxillary sinusitis, unspecified acute GERD (gastroesophageal reflux disease) acute Mild cognitive impairment ac [place] Nausea & vomiting acute Polymyalgia rheumatica acute Sleep apnea treated with con tinuous positive airway pressure (CPAP) acute Vertigo acute [facility] Work Phone: Evaluation note* Diagnosis Onset Date Resolution Status Acute maxillary sinusitis, unspecified acute GERD (gastroesophageal reflux disease) acute Mild cognitive impairment ac [place] Polymyalgia rheumatica acute Sleep apnea treated with con tinuous positive airway pressure (CPAP) acute Nausea & vomiting resolved Vertigo resolved [facility] Work Phone: Evaluation note* Diagnosis Onset Date Resolution Status Acute maxillary sinusitis, unspecified acute GERD (gastroesophageal reflux disease) acute Mild cognitive impairment ac [place] Polymyalgia rheumatica acute Sleep apnea treated with con tinuous positive airway pressure (CPAP) acute Nausea & vomiting resolved Vertigo resolved Carotid artery calcification acute Hyperlipidemia acute Rheumatic fever acute [facility] Work Phone: Evaluation note* Diagnosis Encounter for adjustment and management of neurostimulator- [facility] Diagnosis Failed back syndrome- Primary Other unspecified back disorder Lumbar radiculopathy Thoracic or lumbosacral neuritis or radiculitis, unspecified [facility] Diagnosis Failed back syndrome- Primary Other unspecified back disorder Lumbar radiculopathy Thoracic or lumbosacral neuritis or radiculitis, unspecified [facility] Diagnosis Malfunction of spinal cord stimulator, initial encounter (HCC)- Primary Scoliosis of lumbar spine, unspecified scoliosis [...] [facility] Author Mitra Martinez [facility] November 02, 2023 9:43am Note Date/Time November 02, 2023 9 :30am [facility] Medical Records Department [address] [place] [address] H&P Exam - Hospitalist 11/02/23 0928 MR#: [id number] Acct: [id number] Name: TAMRA GUZMAN Rep #:[id number] : 1955 68 From: Mitra Martinez MD PCP: Dr. Mike Aburto MD Status:ADM I NO [place] [facility] [place]Q950-7 HPI - General General Date of Admission: 11/02/23 Date of Service: 11/02/23 Chief Complaint: Vertigo HPI Narrative TAMRA GUZMAN, is a 68-year-old male history of cochlear implant, GERD, PMR, mild cognitive impairment, sleep apnea, hypertension, presented to [facility] 11/02/2023 with vertigo, nausea, vomiting with a [...] had not had the symptoms until Friday. [facility] Medical History (Updated 11/02/23 @ 05:50 by [...] deficits, cranial nerves II through XII intact, kibngy-jg-hkqg without significant difficulty bilaterally Skin: No rashes [...] % (Auto) 60.5, Lymph % (Auto) 27.7, [place] % (Auto) 8.4, Eos % (Auto) 2.6, [...] 6:22 EST Reading Location ID and State: [facility] / [place] , Service support , Assessment & Plan [...] documentation, 57minutes Charges/Coding Visit Charges Inpatient E&M: 20726 Init Hosp L2 11/02/23 0943 <Electronically signed by Mitra Martinez MD> Cosigner Signature (if applicable): CC: Dr. Mitra Martinez MD; Dr. Mike Aburto MD~ Signed [facility] Work Phone: Rezeoo for referral (narrative)No reason for referral information availableWUniversity Hospitals Ahuja Medical Center Work Phone: Reqmfy for visit Narrative* Auth/Cert (Routine) Specialty Diagnoses / Procedures Referred By Contac t Referred To Contact Diagnoses Malfunction of spinal cord stimulator, initial encounter Malfunction of spinal cord stimulator, initial encounter [T85.192A] Procedures VA INSJ/RPLCMT SPINAL NPG/RCVR POCKET CRTJ&CONNJ VA BUSH FACETECTOMY & FORAMOTOMY 1 VRT SGM THORACIC VA BUSH FACETECTOMY&FORAMOT 1 VRT SGM EA ADDL SGM VA REVJ INCL RPLCMT NSTIM ELTRD PLT/PDLE INCL FLUOR Andrew Guzman MD [address] [facility] [facility] [place] [address] Phone: tel: fax: Referral ID Status Reason Start Date Expiration Date Visits Re quested Visits Authorized [id number] 10/22/2024 1 1 [facility] Summary Purpose Family History No Family History Records FoundNo Family History Records FoundNo Family History Records FoundNo Family History Records FoundNo Family History Records FoundNo Family History Records Found Advance Directives Advance Directive Response Recorded Date/ Time Living Will No May 27 0 9:01pm Power of [place] Department Supervisor No May 27 020 9:01pm Advance Directive Response Recorded Date/ Time Living Will No May 27 8:01pm Power of [place] Department Supervisor No May 27 020 8:01pm Advance Directive Response Recorded Date/ Time Name of Medical Power of [place] Department Supervisor Nely turcios November 02, 2023 5:35am Living Will Yes November 02 5:35am Power of [place] Department Supervisor Yes November 02, 2023 5:35am Advance Directive Response Recorded Date/ Time Name of Medical Power of [place] Department Supervisor Nely Urrutia n - November 02, 2023 11:07am Living Will Yes November 02 11:07am Power of [place] Department Supervisor Yes November 02, 2023 11:07am Date Activated [...] Chief Complaint WOUND WOUND FAX RESULTS TO [phone] Reason for Visit Alzheimer's disease Dysphagia Esophageal [...] Chief Complaint WOUND WOUND FAX RESULTS TO [phone] CONCERN FOR SINUS INFECTION Reason for Visit [...] unspecified Chief Complaint FAX RESULTS TO [phone] CONCERN FOR SINUS INFECTION INTRACTABLE VERTIGO/FALLS Reason [...] Vertigo Chief Complaint FAX RESULTS TO [phone] CONCERN FOR SINUS INFECTION INTRACTABLE VERTIGO/FALLS INTRACTABLE [...] Date E-ORDER December 21, 2024 8:5 6am Chief Complaint Admit Date E-ORDER December 21, 2024 8:5 6am KIDNEY PROTOCAL / Unspecified abdominal pain (STAT March 25, 2025 12:08pm Additional Source Comments (unrecognized sect ion and content) No Status Records FoundNo Status Records FoundNo Status Records FoundNo Status Records FoundNo Status Records FoundNo Status Records Found INFORMATION SOURCE (unrecogn ized section and content) DATE CREATED AUTHOR 04/19/2023 [facility] DATE CREATED AUTHOR AUTHOR'S ORGANIZ ATION 12/11/2024 [facility] DATE CREATED AUTHOR AUTHOR'S ORGANIZ ATION 12/19/2024 [facility] DATE CREATED AUTHOR AUTHOR'S ORGANIZ ATION 01/30/2025 [facility] DATE CREATED AUTHOR AUTHOR'S ORGANIZ ATION 02/28/2025 [facility] DATE CREATED AUTHOR AUTHOR'S ORGANIZ ATION 03/30/2025 [facility] Care Teams (unrecognized sec tion [...] MD Primary Care Provider Active Matthew Hernandez CROP SCOUT, CROP SCOUT-C Attending Provider Active Team Status: Active Member Role Status Dates Dr. Mike Aburto MD Primary Care Provider Active Dr. Rogelio Preciado MD Attending Provider, Referring Provider Active Team Status: Inactive Member Role Status Dates Dr. Mike Aburto MD Primary Care Provider Active Dr. Rogelio Preciado MD Attending Provider, Referring Provider Active Auto Service Mechanic Relationship Specialty Start Date End Date Mike Aburto Chi, MD [address] [place] [address] PCP - General Geriatric Medicine 09/30/24 Auto Service Mechanic Relationship Specialty Start Date End Date Mike Aburto Chi, MD [address] [place] [address] PCP - General Geriatric Medicine 09/30/24 Auto Service Mechanic Relationship Specialty Start Date End Date Mike Aburto Chi, MD [address] [place] [address] PCP - General Geriatric Medicine 09/30/24 Auto Service Mechanic Relationship Specialty Start Date End Date Mike Aburto Chi, MD [address] [place] [address] PCP - General Geriatric Medicine 09/30/24 Auto Service Mechanic Relationship Specialty Start Date End Date Mike Aburto Chi, MD [address] [place] [address] PCP - General Geriatric Medicine 09/30/24 Auto Service Mechanic Relationship Specialty Start Date End Date Mike Aburto Chi, MD [address] [place] [address] PCP - General Geriatric Medicine 09/30/24 Auto Service Mechanic Relationship Specialty Start Date End Date Mike Aburto Chi, MD [address] [place] [address] PCP - General Geriatric Medicine 09/30/24 Auto Service Mechanic Relationship Specialty Start Date End Date Mike Aburto Chi, MD [address] [place] [address] PCP - General Geriatric Medicine 09/30/24 Auto Service Mechanic Relationship Specialty Start Date End Date Mike Aburto Chi, MD [address] [place] [address] PCP - General Geriatric Medicine 09/30/24 Auto Service Mechanic Relationship Specialty Start Date End Date Mike Aburto Chi, MD [address] [place] [address] PCP - General Geriatric Medicine 09/30/24 Team [...] December 21, 2024 End: December 21, 2024 Cathleen HUDDLESTON PA Attending Provider Active Start: December 21, 2024 End: December 21, 2024 Cathleen HUDDLESTON PA Referring Provider Active Start: December 21, 2024 End: December 21, 2024 Auto Service Mechanic Relationship Specialty Start Date End Date Mike Aburto Chi, MD [address] [id number] PCP - General Geriatric Medicine 09/30/24 Team Status: Inactive Member Role Status Dates Dr. Mike Aburto MD Primary Care Provider Active Start: March 14, 2025 End: March 14, 2025 Dr. Mike Aburto MD Attending Provider Active Start: March 14, 2025 End: March 14, 2025 Dr. Mike Aburto MD Referring Provider Active Start: March 14, 2025 End: March 14, 2025 Team Status: Inactive Member Role Status Dates Dr. Mike Aburto MD Primary Care Provider Active Start: March 25, 2025 End: March 25, 2025 Dr. Mike Aburto MD Attending Provider Active Start: March 25, 2025 End: March 25, 2025 Dr. Mike Aburto MD Referring Provider Active Start: March 25, 2025 End: March 25, 2025 Goals (unrecognized section and content) Goals [...] management of neurostimulator Mike Aburto Chi, MD [address] [facility] [address] [place] [address] Phone: tel: fax: Andrew Guzman MD [address] [place] [id number] Phone: tel: fax: Referral ID Status Reason Start Date Expiration Date V isits Requested Visits Authorized [id number] Pending Review 09/13/2024 09/13/2025 1 1 Reason Comments Back Pain Encounter for adjust ment and management of neuro stimulator Specialty Diagnoses / Procedures Referred By Contac t Referred To Contact Neurosurgery Diagnoses Encounter for adjustment and management of neurostimulator Mike Aburto Chi, MD [address] [facility] [address] [place] [address] Phone: tel: fax: Andrew Guzman MD [address] [address] Phone: tel: fax: Reason Comments Follow-up CT [...] 10 mg, Oral, Nightly, First dose on Fri11/18/24 at 2100 2122 (Given - Provider: Christiana Boucher RN) bisacodyL [...] 2121 (New Bag - Provider: Christiana Boucher RN)2151 (Stopped - Provider: Christiana Boucher RN) 0535 (New Bag - Provider: Christiana Boucher RN)1558 (Stopped - Provider: Pat Dasilva RN) donepeziL (ARICEPT) tablet 10 mg 10 mg, Oral, Every morning, First dose on Fri11/19/24 at 0900 0810 (Given - Provid er: Pat Dasilva RN) famotidine (PEPCID) tablet 40 mg 40 mg, Oral, Daily (in the evening), First dose on Fabiola 11/18/24 at 2000 1999 (Not Given - Provider: Christiana Boucher RN - Reason: Patient/family refused) ketorolac (TORADOL) injection 15 mg (COMPLETED) 15 mg, Intravenous, Once, On Fri11/19/24 at 1015, For 1 dose 1012 (Given - Provid er: Pat Dasilva RN) memantine (NAMENDA) tablet 10 mg 10 mg, Oral, 2 times daily, First dose on Fabiola 11/18/24 at 2100 2121 (Given - Provider: Christiana Boucher RN) 0810 (Given - Provider: Pat Dasilva RN) senna-docusate (SENNA-S) 8.6-50 mg per tablet 2 tablet 2 tablet, Oral, 2 times daily, First dose on Fabiola 11/18/24 at 2100, [] Hold for loose stools. Do Not Crush or Chew if administering orally due to bitter taste. May be crushed if given via tube. 2099 (Not Given - Provider: Christiana Boucher RN [...] 11/18/24 at 1536, Try oral meds first. Shannon rectal route for when oral meds are ineffective, not tolerated, or not ordered. cyclobenzaprine (FLEXERIL) tablet 5 mg 5 mg, Oral, Every 8 hours PRN, muscle spasms, Starting on Fabiola 11/18/24 at 1536 1611 (Given - Provider: Pat Dasilva RN) 0808 (Given - Provider: Pat Dasilva, JOYCE) diphenhydrAMINE (BENADRYL) tablet 25 mg 25 mg, [...] call physician. 1612 (Given - Provider: Pat Dasilva, RN) 0808 (Given - Provider: Pat Dasilva [...] BE BASED ON THE PRIMARY CLINICAL RECORDS. [facility]. provides no warranty or guarantee of the accuracy or completeness of information in this document.
--- NOTE | 2025-04-01 10:14 | PCM.PRE.AN2 ---
ASA Classification* ASA Classification ASA Classification: 3 Assessment & Plan Anesthesia* Anesthesia Assessment Anesthesia Assessment: Discussed sedation and/or anesthesia options, risks, benefits, and alternatives with patient/parents/legal guardian/POA. Questions invited. The patient/parents/legal guardian/POA seems to understand and agrees to proceed with anesthesia plan. Reviewed the physical assessment, medical history, allergy history and patient home medications list prior to surgery/procedure/anesthetic and documented any changes. Performed airway and anesthesia risk assessments. Anesthesia Type Anesthesia Type: General History Source History Obtained from:: Patient and Chart Anesthesia Focused Assessment* Temperature: 97.4 F Pulse Rate: 65 Blood Pressure: 126/89 Respiratory Rate: 16 Pulse Ox: 97 Oxygen Delivery Method: Room Air Airway Assessment Mouth opens: >3 cm Mallampati Score: III Teeth Condition: Caps/Crowns (Patient has a couple of caps. They are tight.) and Implants (Patient has 4 implants. They are all tight.) Neck Range of motion (ROM): Limited ROM Labs Anesthesia Preop lab: CBC WBC 6.3 K/mm3 (4.4-11.0) 03/14/25 12:15 03/14/25 RBC 5.18 M/mm3 (4.6-6.2) 03/14/25 12:15 03/14/25 Hgb 14.6 g/dL (13.0-16.5) 03/14/25 12:15 03/14/25 Hct 44.6 % (40-54) 03/14/25 12:15 03/14/25 Plt Count 147 K/mm3 (150-450) L 03/14/25 12:15 03/14/25 CHEMISTRY Potassium 4.5 mmol/L (3.3-5.1) 03/14/25 12:15 03/14/25 Sodium 141 mmol/L (133-145) 03/14/25 12:15 03/14/25 Magnesium 2.1 mg/dL (1.6-2.6) 11/03/23 04:50 11/03/23 BUN 20 mg/dL (4-19) H 03/14/25 12:15 03/14/25 Creatinine 1.02 mg/dL (0.70-1.20) 03/14/25 12:15 03/14/25 Glucose 91 mg/dL (70-99) 03/14/25 12:15 03/14/25 POC Glucose 114 mg/dL (74-106) H 11/02/23 05:32 11/02/23 TSH 1.040 uIU/mL (0.300-4.200) 03/14/25 12:15 03/14/25 COAG PT 12.3 SECONDS (11.7-14.9) 07/21/23 11:03 07/21/23 Pre-Assessment Diagnosis/Proposed Procedure Planned Operative Procedure(s): (R) ESWL Anesthesia History Anesthesia 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 When Was Last Pacemaker Check QUESTION #4 FULL TEXT: You/Your Family Experience fever (hyperthermia) with Anesthesia Last Oral Intake Last Oral intake: Last Oral Intake NPO since 21:00 04/01/25 09:50 Meds taken in AM with sips of Yes 04/01/25 09:50 water? Meds patient instructed to take am of surgery Any additional information?: Yes Meds taken in AM with sips of water?: Yes Meds patient instructed to take am of surgery: Amlodipine, doxycycline, prednisone 10 mg PONV PONV - cook cashier food prep: PONV - cook cashier food prep Female No 03/30/25 09:32 HX of Motion Sickness Yes 03/30/25 09:32 HX of N/V After Surgery Yes 03/30/25 09:32 Non-Smoker Yes 03/30/25 09:32 Duration of Surgery greater No 03/30/25 09:32 than 60 minutes Number of Risk Factors 3 03/30/25 09:32 PONV Score Moderate Risk 03/30/25 09:32 Height & Weight Height & Weight: Anesthesia: Height & Weight Height 6 ft 04/01/25 09:50 Weight: 91.4 kg 04/01/25 09:50 Body Mass Index (BMI) 27.3 04/01/25 09:50 Respiratory Assessment Respiratory Assessment - cook cashier food prep: Respiratory Tract Infection Hx - cook cashier food prep Hx Respiratory Tract Infection No 03/30/25 09:32 STOP Sleep Apnea STOP Sleep Apnea - cook cashier food prep: STOP Sleep Apnea - cook cashier food prep Hx Hypertension No 03/30/25 09:32 Hx Sleep Apnea Yes 03/30/25 09:32 CPAP Yes 03/30/25 09:32 BIPAP No 03/30/25 09:32 Do you snore loudly (louder than talking or can be heard Do you often feel tired/ fatigued/ sleepy during daytime? Has anyone observed you stop breathing during sleep? STOP Results Positive 03/30/25 09:32 QUESTION #5 FULL TEXT : Do you snore loudly (louder than talking or can be heard through closed doors)? 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 Specify any problems Hx of Preganancy in last 3 N/A 03/30/25 09:32 Months Nurse Filling Out Transfusion VCHRISTIN 03/30/25 09:32 & Questions: Date: 03/30/25 03/30/25 09:32 Time: 09:33 03/30/25 09:32 Patient unable to answer at this time (ie. confused, unrespo /Reproduction History /Reproductive History - cook cashier food prep: /Reproductive Hx- cook cashier food prep Hx Now No 03/30/25 09:32 Gestational Age (in weeks): EDC: Hx Hx Para Hx Section SAB No 03/30/25 09:32 Active Medications Active Medications: Current Medications Generic Name Dose Route Start Last Admin Trade Name Fidelq PRN Reason Stop Dose Admin Cefazolin Sodium 2 gm/ Sodium 110 mls @ 150 mls/hr 04/01/25 11:15 Chloride IV 04/01/25 11:58 INTRAOP ONE Lactated Ringer's 1,000 mls @ 15 mls/hr 04/01/25 09:45 04/01/25 09:58 IV 15 mls/hr .Q48H CHANDAN Administration PFSH Medical History Wears hearing aid Cancer History of steroid therapy Rheumatoid arthritis Arthritis Kidney stones High cholesterol Back pain History of IBS Gastric reflux Non-smoker CPAP (continuous positive airway pressure) dependence Sleep apnea History of stress test Cardiology follow-up encounter History of rheumatic fever Hereditary hearing loss Bilateral sensorineural hearing loss Acute maxillary sinusitis, unspecified Cochlear implant in place Non-pressure chronic ulcer of right calf with fat layer exposed Peripheral nerve neurostimulator device in situ Traumatic open wound of right lower leg Chronic cough Hypertension Hyperlipidemia Polymyalgia rheumatica Spinal stenosis at L4-L5 level Hearing loss Sleep apnea treated with continuous positive airway pressure (CPAP) Mild cognitive impairment Alzheimer's disease Dysphagia Hiatal hernia Esophageal stenosis Pancreatic cyst GERD (gastroesophageal reflux disease) Home Medications ?Medication ?Instructions ?Recorded ?Last Taken ?Type amlodipine 5 mg tablet 5 mg PO DAILY 05/27/20 04/01/25 09:00 History prednisone 1 mg tablet 2 mg PO DAILY 05/27/20 04/01/25 History famotidine 40 mg tablet 40 mg PO QHS 10/27/23 03/31/25 History meclizine 25 mg tablet 25 mg PO 4X/DAY PRN PRN Dizziness 11/02/23 Unknown Rx #20 tabs doxycycline hyclate 100 mg tablet 100 mg PO BID 03/30/25 04/01/25 History hydroxychloroquine 200 mg tablet 200 mg PO BID 03/30/25 Unknown History loratadine 10 mg tablet (Claritin) 10 mg PO DAILY 03/30/25 Unknown History prednisone 10 mg tablet 10 mg PO .SEE DIRECTIONS 03/30/25 Unknown History rosuvastatin 20 mg tablet 20 mg PO QHS 03/30/25 Unknown History Allergy/AdvReac Type Severity Reaction Status Date / Time No Known Allergies Allergy Verified 04/01/25 09:46 Surgical History Hx of vasectomy Hx of rotator cuff surgery Hx of knee surgery History of cochlear implant History of total bilateral knee replacement Social History Smoking Status: Never smoker alcohol intake: never substance use type: does not use caffeine: No Review of Systems (Anesthesia) ROS Narrative System reviewed and no additional complaints, except as documented.
[2025-04-01] MEDS: Cefazolin 2 GM in 0.9% Normal Saline (100mL Bag) 100 ML IV (12:38)
--- NOTE | 2025-04-01 13:32 | DCINST_ITS ---
Discharge Instructions Diet Discharge Diet: No restrictions DC O2, CPAP, BIPAP needs Home O2 Discharge instructions: No Dressing / Incision Discharge Activity: Return to Normal Activity and May Not Drive (while taking narcotic pain medications.) Dressing / Incision Call your doctor if you observe: Fever of 101 or Higher Follow Up Care Please Follow Up With: Neeraj Mcnulty MD When: Call [phone] for an appointment Test Results: Test results from this visit will be discussed in further detail at your follow- up appointment, if applicable. Discharge Plan Admission Primary Reason for Your Visit: ESWL Attending Provider: Neeraj Mcnulty Primary Care Provider: Mike Aburto Chi Instructions Print Language: Irish Discharge Orders/Prescriptions Prescriptions: New oxycodone 5 mg tablet 5 mg PO Q6H PRN (Reason: pain) 3 Days Qty: 14 0RF ciprofloxacin HCl 500 mg tablet 500 mg PO BID Qty: 10 0RF Continued famotidine 40 mg tablet 40 mg PO QHS amlodipine 5 MG tablet 5 mg PO DAILY prednisone 1 MG tablet 2 mg PO DAILY meclizine 25 mg tablet 25 mg PO 4X/DAY PRN PRN (Reason: Dizziness) Qty: 20 0RF hydroxychloroquine 200 mg tablet 200 mg PO BID loratadine [Claritin] 10 mg tablet 10 mg PO DAILY doxycycline hyclate 100 mg tablet 100 mg PO BID rosuvastatin 20 mg tablet 20 mg PO QHS prednisone 10 mg tablet 10 mg PO .SEE DIRECTIONS Referrals / Follow Up: Neeraj Mcnulty MD [Med Staff - Active Staff] - Mike Aburto Chi, MD [Primary Care Provider] - Disposition Disposition (needs filled in before D/C Order can be placed): Home, Self Care
--- NOTE | 2025-04-01 13:33 | PCM.OPRPT ---
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: No Type of Anesthesia: General RN Documented Start/Stop Times: Operation Date: 04/01/25 11:15 Case Time Into Pre-Op 04/01/25 09:32 Out of Pre-Op 04/01/25 12:33 Anesthesia Start 04/01/25 12:38 Into Room 04/01/25 12:38 Procedure Start 04/01/25 12:49 Procedure End 04/01/25 13:26 Anesthesia End 04/01/25 13:31 Out of Room 04/01/25 13:31 Procedure Start Time: 13:31 Procedure Stop Time: 13:33 Select all DRAINS/GRAFTS/IMPLANTS that apply: None Estimated Blood Loss: None Specimen collected: No Description of surgery: Patient is taken back to the operating room after smooth induction of anesthesia who placed upon on the table we localize a stone in the right upper pole of the kidney and then the F2 focal point of the shockwave machine was focused on the stone we then proceeded with shockwave lithotripsy rate of 90 shocks per minute increasing her power slowly we did a total of 3000 shocks to the stone up to 7 kV a month the stone was monitored during the fragmentation and the stone broke up completely at the end of the treatment cycle. Patient anesthetic was reversed taken back to the PACU in stable condition he will follow-up in the office in a few weeks with an x-ray. Surgical Findings: Stone broke up all the way with shockwave lithotripsy Complications Complications: No Admit VTE Documentation VTE Present on Admission: No VTE Mechan Device Prophylaxis: SCD's VTE Pharm Prophylaxis ordered?: No
--- NOTE | 2025-04-01 13:36 | PCM.POST.ANE ---
Anesthesia: Postop Eval I Current Vital Signs Temperature: 97 F Pulse Rate: 63 Blood Pressure: 159/99 Respiratory Rate: 16 Pulse Ox: 96 Assessment Airway patent: Yes Spontaneous unlabored respirations: Yes nausea: No Vomiting: No Anesthesia Complication: No Fluid Hydration Crystalloid volume administer (ml): 1,000 Total IV fluid infused: 1,000 Progress Note Anesthesia document: Postop Eval 1 completed: Yes
[2025-04-01] MEDS: Ketorolac 15 MG/ML Vial IV (13:50)
--- NOTE | 2025-04-01 15:47 | POSTOPAN2_ITS ---
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 Spontaneous unlabored Yes 04/01/25 13:36 WATER RESOURCES BUSINESS SEGMENT LEADER.[email or web address] respirations Mental status nausea No 04/01/25 13:36 WATER RESOURCES BUSINESS SEGMENT [email or web address] Vomiting No 04/01/25 13:36 WATER RESOURCES BUSINESS SEGMENT [email or web address] Anesthesia Postop Eval I: Fluid Summary Crystalloid volume administer 1,000 04/01/25 13:36 WATER RESOURCES BUSINESS SEGMENT LEADER.[email or web address] (ml) Colloids volume administered ( ml) Blood Product volume administered (ml) Total IV fluid infused 1,000 04/01/25 13:36 WATER RESOURCES BUSINESS SEGMENT [email or web address] Anesthesia Postop Eval I: Summary Notes Anesthesia Complication No 04/01/25 13:36 WATER RESOURCES BUSINESS SEGMENT [email or web address] Anesthesia Complication Comment: Post-operative progress note Anesthesia: Postop Eval II Evaluation Mental status: Awake Pain Level: 2 nausea: No Vomiting: No
--- NOTE | 2025-04-01 15:47 | PCM.POSTANE2 ---
Anesthesia Postop Eval I Sum Postop Eval Completion status Anesthesia document: Postop Eval 1 completed: Yes Anesthesia Postop Eval I Summary Anesthesia Postop Eval I Summary: Anesthesia Postop Eval I: Assessment Summary Airway patent Yes 04/01/25 13:36 CONTACT ACID PLANT OPERATOR [email or web address] Spontaneous unlabored Yes 04/01/25 13:36 CONTACT ACID PLANT OPERATOR [email or web address] respirations Mental status nausea No 04/01/25 13:36 CONTACT ACID PLANT OPERATOR [email or web address] Vomiting No 04/01/25 13:36 CONTACT ACID PLANT OPERATOR [email or web address] Anesthesia Postop Eval I: Fluid Summary Crystalloid volume administer 1,000 04/01/25 13:36 CONTACT ACID PLANT OPERATOR [email or web address] (ml) Colloids volume administered ( ml) Blood Product volume administered (ml) Total IV fluid infused 1,000 04/01/25 13:36 CONTACT ACID PLANT OPERATOR [email or web address] Anesthesia Postop Eval I: Summary Notes Anesthesia Complication No 04/01/25 13:36 CONTACT ACID PLANT OPERATOR [email or web address] Anesthesia Complication Comment: Post-operative progress note Anesthesia: Postop Eval II Evaluation Mental status: Awake Pain Level: 2 nausea: No Vomiting: No
--- NOTE | 2025-04-06 14:34 | PCM.HP.STD ---
HPI - General General Date of Admission: 04/01/25 Chief Complaint: kidney stone HPI Narrative TAMRA GUZMAN, is a 70 M who presents plan to do surgery for kidney stones kidney H&P update [facility] Medical History (Updated 04/01/25 @ 13:[address] Neeraj Mcnulty MD) Wears hearing aid Cancer History of steroid therapy Rheumatoid arthritis Arthritis Kidney stones High cholesterol Back pain History of IBS Gastric reflux Non-smoker CPAP (continuous positive airway pressure) dependence Sleep apnea History of stress test Cardiology follow-up encounter History of rheumatic fever Hereditary hearing loss Bilateral sensorineural hearing loss Acute maxillary sinusitis, unspecified Cochlear implant in place Non-pressure chronic ulcer of right calf with fat layer exposed Peripheral nerve neurostimulator device in situ Traumatic open wound of right lower leg Chronic cough Hypertension Hyperlipidemia Polymyalgia rheumatica Spinal stenosis at L4-L5 level Hearing loss Sleep apnea treated with continuous positive airway pressure (CPAP) Mild cognitive impairment Alzheimer's disease Dysphagia Hiatal hernia Esophageal stenosis Pancreatic cyst GERD (gastroesophageal reflux disease) Home Medications ?Medication ?Instructions ?Recorded ?Last Taken ?Type amlodipine 5 mg tablet 5 mg PO DAILY 05/27/20 04/01/25 09:00 History prednisone 1 mg tablet 2 mg PO DAILY 05/27/20 04/01/25 History famotidine 40 mg tablet 40 mg PO QHS 10/27/23 03/31/25 History meclizine 25 mg tablet 25 mg PO 4X/DAY PRN PRN Dizziness 11/02/23 Unknown Rx #20 tabs doxycycline hyclate 100 mg tablet 100 mg PO BID 03/30/25 04/01/25 History hydroxychloroquine 200 mg tablet 200 mg PO BID 03/30/25 Unknown History loratadine 10 mg tablet (Claritin) 10 mg PO DAILY 03/30/25 Unknown History prednisone 10 mg tablet 10 mg PO .SEE DIRECTIONS 03/30/25 Unknown History rosuvastatin 20 mg tablet 20 mg PO QHS 03/30/25 Unknown History ciprofloxacin HCl 500 mg tablet 500 mg PO BID #10 tabs 04/01/25 Unknown Rx oxycodone 5 mg tablet 5 mg PO Q6H PRN pain 3 days #14 04/01/25 Unknown Rx tabs Allergy/AdvReac Type Severity Reaction Status Date / Time No Known Allergies Allergy Verified 04/01/25 09:46 Surgical History Hx of vasectomy Hx of rotator cuff surgery Hx of knee surgery History of cochlear implant History of total bilateral knee replacement Social History Smoking Status: Never smoker alcohol intake: never substance use type: does not use caffeine: No Vital Signs Vital Signs Vital Signs: Weight Weight: 91.4 kg Body Mass Index (BMI) 27.3
== END 2025-04-01 16:38 | disposition home or self-care (01) ==
LOC: SDC 09:23 → AC 09:28
PROVIDERS: PCP Family Medicine Geriatric Medicine; Referring Provider Urology; Visit Provider Urology
PROC: (CPT 50590; principal; 2025-04-01 11:00)
DX: N20.0 Calculus of kidney (principal); K21.9 Gastro-esophageal reflux disease without esophagitis; I10 Essential (primary) hypertension; Z79.52 Long term (current) use of systemic steroids; Z98.52 Vasectomy status; Z99.89 Dependence on other enabling machines and devices; E78.5 Hyperlipidemia, unspecified; G47.30 Sleep apnea, unspecified
CPT/HCPCS: 50590; 74019; J2405

== ENCOUNTER → 2025-04-05 | Outpatient (CLI) | payer MEDICARE, OTHER, SELFPAY ==
--- NOTE | 2025-04-05 07:10 | MRI_ITS ---
PROCEDURE: BRAIN WITHOUT CONTRAST 04/05/2025 REASON FOR EXAM: ALZHEIMER'S DISEASE TECHNIQUE: BRAIN WITHOUT CONTRAST Multiplanar and multisequence images were obtained. COMPARISON: Head CT of 11/02/2023. FINDINGS: The examination is significantly limited by right-sided metallic artifact, presumably from a cochlear implant. Because of the patient's state, diffusion-weighted images some other sequences were not included. No intracranial mass or mass effect is seen. No extra-axial fluid collection is noted. No orbital pathology is seen. Internal auditory canals appear symmetric and within the range. Mild generalized cerebral atrophy is seen, with symmetric ventricular enlargement consistent with the degree of atrophy. Visualized paranasal sinuses appear clear, as do visualized portions of the left mastoid air cells. Opacification of most of the right mastoid air cells is noted, possibly postsurgical in nature; recommend clinical and historical correlation MRI/Brain without Contrast IMPRESSION: Limited examination, as described, but no acute intracranial process is seen. Reading Location: [place] [address]
--- OUTSIDE RECORDS SUMMARY | 2025-04-05 07:12 | XMS RPT_ITS | CCD ---
Author Organization [facility] Care Team Providers Care New Patient Escort Name Role Phone Dr. Mike Aburto Chi Primary Care Provider Dr. Mike Aburto Chi Referring Provider FLAQUITO Rodrigues Attending Provider Dr. Arik Cade Emergency Provider Dr. Mitra Martinez Admit Provider Dr. Mitra Martinez Other Provider Dr. Von Park Attending Provider Unavailable Dr. Von Park Other Provider Unavailable Dr. Rogelio Preciado Attending Provider Dr. Peng Ballesteros Attending Provider Roof MENTAL MEASUREMENTS TEACHER, MENTAL MEASUREMENTS TEACHER-C Matthew Page Attending Provider Unavailable Primary Care Provider Mike Franklin MD, Chi Primary Care Provider [phone] SYSTEM, PROVIDER NOT IN Referring Unavaila ble [...] Attending Provider Ahmet Frances PA-C Referring Provider [phone] Thomas CAMARENA, Dr. Morales Other Provider Cathleen Perez Attending Provider [phone] Cathleen Perez Referring Provider [phone] LAMONTE, MIKE CHI Primary Care Unavailable CHOPKO, [...] MIKE CHI Primary Care Unavailable CHOPKO, ANDREWTATI PEÑAODYMYR Admitting Unavail able LAMONTE, MIKE CHI Primary Care Unavailable CHOPKO, ANDREW GASPARMYR Attending Unavail able Lamonte , Dr. Mike Underwood Primary Care Provider Dr. Mike Aburto MD, Chi Attending Provider Dr. Mike Aburto MD, Chi Referring Provider [phone] Hamlet CAMARENA, Dr. Neeraj Duran Attending Provider Dr. Neeraj Mcnulty MD Referring Provider Lamonte, Mike Chi Primary Care Unavailable Lamonte, [...] Unavailable Lamonte, Mike Chi Primary Care Unavailable KEYON RODGERS Attending Unavailable Rogelio Preciado Consulting Unavailable Lamonte, Mike Chi Referring Unavailable Peng Ballesteros Attending Unavailable Lamonte, Mike Chi Primary Care Unavailable AvaniRenans Referring Unavailable AvaniChris dickson Attending Unavailable Lamonte, Mike Chi Primary Care [...] Unavailable Lamonte, Mike Chi Primary Care Unavailable Neeraj Mcnulty Referring Unavailable Neeraj Mcnulty Attending Unavailable Lamonte, Mike Chi Primary Care Unavailable Lamonte, Mike Chi Primary Care Unavailable Ahmet Frances Referring Unavailable Ahmet Frances Attending Unavailable Andrew Guzman Consulting Unavailable Lamonte, Mike Chi Primary Care Unavailable Cathleen Perez Referring Unavail able Cathleen Perez Attending Unavail able Allergies Allergy Classification Reported Allergen(s) Allergy Type Date of Onset Reaction(s) Facility (18 sources) Bee pollen; Translations: [BEE POLLEN] Drug Allergy 4 Unknown [facility] (1 source) Pollen; Translations: [POLLEN EXTRACTS] Propensity to adverse reactions to drug (disorder) 5 [facility] Three Repository Medications Current Medications Medication Drug Class(es) Dates Sig (Normalized) Sig (Original) acetaminophen 325 mg / oxyCODONE hydrochloride 5 mg oral tablet (19 sources) Opioid Agonist Start: 11-19-2024 End: 11-26-2024 [...] PRN, moderate to severe pain, Starting on [facility] 11/18/24 at 1536, [] Initiate with 1 [...] mg PO DAILY May 27, 2020 12:00am ciprofloxacin 500 mg oral tablet (1 source) Quinolone Antimicrobial Start: 04-01-2025 take 1 tablet by mouth twice daily Ciprofloxacin Hcl 500 mg tablet Active 500 mg PO TWICE A DAY April 01, 2025 12:00am cyclobenzaprine hydrochloride 5 mg oral tablet [...] 8 hours PRN, muscle spasms, Starting on [facility] 11/18/24 at 1536 doxycycline hyclate 100 mg oral tablet (2 sources) Tetracycline-class Drug Start: 03-30-2025 take 1 tablet by mouth twice daily Doxycycline Hyclate 100 mg tablet Active 100 mg PO TWICE A DAY March 30, 2025 12:00am hydroxychloroquine sulfate 200 mg oral tablet (13 sources) Antimalarial, Antirheumatic Agent Start: 03-30-2025 take 1 tablet by mouth twice daily Hydroxychloroquine 200 mg tablet Active 200 mg PO TWICE A DAY March 30, 2025 12:00am take 1 tablet by mouth twice leia ly hydroxychloroquine (PLAQUENIL) 200 mg tablet Take 1 (one) tablet (200 mg total) by mouth 2 (two) times a day . Active loratadine 10 mg oral tablet (2 sources) Start: 03-30-2025 take 1 tablet by mouth once daily Loratadine (Claritin) 10 mg tablet Active 10 mg PO DAILY March 30, 2025 12:00am meclizine hydrochloride 25 mg oral tablet (16 sources) Antiemetic Start: 11-02-2023 End: 11-19-2024 take 1 tablet by mouth four times daily as needed for dizziness Meclizine 25 mg tablet Active 25 mg PO 4 TIMES DAILY NEEDED as needed for Dizziness November 02, 2023 1:00am oxyCODONE hydrochloride 5 mg oral tablet (1 source) Opioid Agonist Start: 04-01-2025 take 1 tablet by mouth every six hours as needed for pain Oxycodone 5 mg tablet Active 5 mg PO EVERY 6 HOURS as needed for pain 14 3 April 01, 2025 predniSONE 10 mg oral tablet (20 sources) Start: 03-30-2025 Prednisone 10 mg tablet Active 10 mg PO .SEE DIRECTIONS March 30, 2025 12:00am Start: 09-28-2020 [facility] predniSONE 2 mg TbEC Take 1 (one) tablet (2 mg total) by mouth every morning . 09/28/2020 Active Start: 09-28-2020 take 4 tablets by mo [facility] once daily predniSONE (DELTASONE) 1 MG tablet Take 4 (four) tablets (4 mg total) by mouth daily . 09/28/2020 Active Start: 05-27-2020 take 2 tablets by mo [facility] once daily Prednisone 1 MG tablet Active [...] MG PO DAILY May 27, 2020 12:00am sulfamethoxazole 800 mg / trimethoprim 160 mg oral tablet (3 sources) Dihydrofolate Reductase Inhibitor Antibacterial, Sulfonamide Antimicrobial Start: 12-02-2024 End: 12-13-2024 take 1 tablet by mouth twice daily sulfamethoxazole-trimethoprim (BACTRIM DS,SEPTRA DS) 800-160 mg per tablet [...] for pain amoxicillin 500 mg oral capsule (11 sources) Penicillin-class Antibacterial Start: 08-13-2023 End: 08-23-2023 [...] mg / clavulanate 125 mg oral tablet (4 sources) Penicillin-class Antibacterial Start: 02-28-2024 End: 03-09-2024 Amoxicillin-Pot Clavulanate (Augmentin) 500-125 mg tablet Discontinued 1 {tbl} PO TWICE A DAY 20 February 28, 2024 12:00am March 08, 2024 12:00am March 09, 2024 12:04am 24 hr amphetamine aspartate 7.5 mg / amphetamine sulfate 7.5 mg / dextroamphetamine saccharate 7.5 mg / dextroamphetamine sulfate 7.5 mg extended release oral capsule (15 sources) Central Nervous System Stimulant Start: 05-27-2020 [...] at Discharge) cholecalciferol 0.025 mg oral capsule (10 sources) Vitamin D Start: 10-27-2023 End: 11-14-2023 [...] needed docusate sodium 50 mg / sennosides, correction 8.6 mg oral tablet (1 source) Start: [...] hydrobromide 8 mg extended release oral capsule (10 sources) Start: 10-27-2023 End: 11-02-2023 take 1 [...] hydrochloride 10 mg oral tablet (20 sources) X-cowouh-Q-aspar lloyd Receptor Antagonist Start: 10-27-2023 End: 03-30-2025 [...] mg 2 ml ondansetron 2 mg/ml injection (16 sources) Serotonin-3 Receptor Antagonist Start: 11-18-2024 End: 11-19-2024 take 4 mg intravenously every six hours as needed for nausea and vomiting Start: 05-27-2020 End: 04-29-2023 take 1 tablet by mouth every eight hours as needed for nausea Ondansetron 4 MG tablet Discontinued 4 mg PO EVERY 8 HOURS NEEDED as needed for Nausea May 27, 2020 12:00am April 29, 2023 8:58am rosuvastatin calcium 20 mg oral tablet (20 sources) HMG-CoA Reductase Inhibitor Start: 11-14-2023 End: 03-30-2025 take 1 tablet by mouth once daily Rosuvastatin 20 mg tablet Discontinued 20 mg PO DAILY December 02, 2024 9:01am March 30, 2025 9:18am 1000 ml sodium chloride 9 mg/ml injection (1 source) Start: 11-18-2024 End: 11-19-2024 take 50 mL intravenously every hour 50 mL/hr, Intravenous, Continuous, Starting on Fri11/18/24 at 1630 tamsulosin hydrochloride 0.4 mg oral capsule (20 sources) alpha-Adrenergi c Sita Start: 10-27-2023 End: 11-02-2023 take 1 [...] 11-19-2024 vitamin b12 1 mg oral capsule (16 sources) Vitamin B12 Start: 10-27-2023 End: 03-30-2025 [...] abdominal pain; Translations: [Unspecified abdominal pain] Onset: Episodic Bacterial infection; unspecified site (10 sources) Rheumatic fever; Translations: [Rheumatic fever without [...] and is normal. Calculus of urinary tract (3 sources) Kidney stone; Translations: [Calculus of kidney] Onset: 5 04-01-2025 Episodic Chronic ulcer of skin (16 sources) Chronic non-pressure ulcer of calf extending [...] Episodic Conditions associated with dizziness or vertigo (16 sources) Vertigo; Translations: [Dizziness and giddiness] 11-02-2023 [...] above: CONTROLLED ON MED Nausea and vomiting (16 sources) Nausea and vomiting; Translations: [Nausea with vomiting, unspecified] 11-02-2023 Episodic Occlusion or stenosis of precerebral arteries (10 sources) Vascular calcification; Translations: [Occlusion and stenosis [...] 4 04-29-2023 Chronic Other connective tissue disease (14 sources) History of total knee arthroplasty; Translations: [Presence of artificial knee joint, bilateral] 04-29-2023 Chronic Other connective tissue disease (7 sources) Presence of artificial knee joint, bilateral; Translations: [Knee joint replacement] 05-12-2023 Chronic Other connective tissue disease (13 sources) Polymyalgia rheumatica; Translations: [Polymyalgia rheumatica] 05-12-2023 Chronic Other ear and sense organ disorders (14 sources) Hearing loss; Translations: [Unspecified hearing loss, unspecified ear] 04-29-2023 Chronic Other ear and sense organ disorders (7 sources) Unspecified hearing loss, unspecified ear; Translations: [Unspecified hearing loss] 05-12-2023 Chronic Other ear and sense organ disorders (11 sources) Cochlear prosthesis in situ; Translations: [Cochlear implant status] 08-13-2023 Chronic Other ear and sense organ disorders (10 sources) Hereditary hearing loss; Translations: [Unspecified hearing loss, unspecified ear] 10-27-2023 Chronic Other ear and sense organ disorders (10 sources) Sensorineural hearing loss, bilateral; Translations: [Sensorineural hearing loss, bilateral] 10-27-2023 Chronic Other gastrointestinal disorders (14 sources) Dysphagia; Translations: [Dysphagia, unspecified] 04-29-2023 Episodic Other gastrointestinal disorders (7 sources) Dysphagia, unspecified; Translations: [Dysphagia, unspecified] 05-12-2023 Episodic Other hereditary and degenerative nervous system conditions (14 sources) Impaired cognition; Translations: [Mild cognitive impairment, [...] pain] 11-19-2024 Episodic Other upper respiratory infections (18 sources) Acute maxillary sinusitis; Translations: [Acute maxillary sinusitis, unspecified] 08-13-2023 Episodic Pancreatic disorders (not diabetes) (20 sources) Cyst of pancreas; Translations: [Cyst of pancreas] Onset: 04-29-2023 Episodic Pneumonia (except that caused by tuberculosis or sexually transmitted disease) (4 sources) Pneumonia; Translations: [Pneumonia, unspecified organism] 02-28-2024 Episodic Residual codes; unclassified (14 sources) Sleep apnea; Translations: [Sleep apnea, unspecified] [...] Test Name Value Interpretation Reference Range Facility [facility] Decub and/or Erecton 04-01-2025 [facility] Decub and/or Erect [facility] Imaging Services [address] [place] [address] [employer] Decub and/or Erect MR#: [id number] Acct: [id number] Name: TAMRA GUZMAN Rep #: [id number] : 1955 M 70 From: Mita Mckeon MD PCP: Dr. Mike Aburto MD Status: [facility] Study: [employer] Decub and/or Erect Date of Exam: 04/01 Exam# [id number] Ordering Dr: Neeraj Mcnulty MD EXAM: XR Abdomen, 1 View CLINICAL INDICATION: PRE-OP TECHNIQUE: Frontal supine view of the abdomen/pelvis. COMPARISON: No relevant prior studies available. FINDINGS: GASTROINTESTINAL TRACT: Fecal retention in the colon consistent with constipation. No dilation. ORGANS: 5 mm calculus projecting over the right renal region. BONES/JOINTS: Unremarkable. No acute fracture. TUBES, LINES AND DEVICES: Nerve stimulator projecting over the left lower abdominal quadrant. RAD/[employer] Decub and/or Erect IMPRESSION: 1. Fecal retention in the colon consistent with constipation. 2. 5 mm calculus projecting over the right renal region. Reading Location: [id number] CC: Dr. Neeraj Mcnulty MD; Dr. Mike Aburto MD [employer] Worker: Signed Normal [facility] Discharge Instructionon 03-14 Discharge Instruction [facility] Medical Records Department [address] [place] [address] Instructions for Home/Discharge Instructions 04/01/25 1332 MR#: [id number] Acct: [id number] Name: TAMRA GUZMAN Rep #: [id number] : 1955 70 From: Neeraj Mcnulty MD PCP: Dr. Mike Aburto MD Status:REG [facility] Discharge Instructions Diet Discharge Diet: No restrictions DC O2, CPAP, BIPAP needs Home O2 Discharge instructions: No Dressing / Incision Discharge Activity: Return to Normal Activity and May Not Drive (while taking narcotic pain medications.) Dressing / Incision Call your doctor if you observe: Fever of 101 or Higher Follow Up Care Please Follow Up With: Neeraj Mcnulty MD When: Call [phone] for an appointment Test Results: Test results from this visit will be discussed in further detail at your follow-up appointment, if applicable. Discharge Plan Admission Primary Reason for Your Visit: ESWL Attending Provider: Neeraj Mcnulty Primary Care Provider: Mike Aburto Chi Instructions Print Language: Stateless Discharge Orders/Prescriptions Prescriptions: New oxycodone 5 mg tablet 5 mg PO Q6H PRN (Reason: pain) 3 Days Qty: 14 0RF ciprofloxacin HCl 500 mg tablet 500 mg PO BID Qty: 10 0RF Continued famotidine 40 mg tablet 40 mg PO QHS amlodipine 5 MG tablet 5 mg PO DAILY prednisone 1 MG tablet 2 mg PO DAILY meclizine 25 mg tablet 25 mg PO 4X/DAY PRN PRN (Reason: Dizziness) Qty: 20 0RF hydroxychloroquine 200 mg tablet 200 mg PO BID loratadine [Claritin] 10 mg tablet 10 mg PO DAILY doxycycline hyclate 100 mg tablet 100 mg PO BID rosuvastatin 20 mg tablet 20 mg PO QHS prednisone 10 mg tablet 10 mg PO .SEE DIRECTIONS Referrals / Follow Up: Neeraj Mcnulty MD [Med Staff - Active Staff] - Mike Aburto Chi, MD [Primary Care Provider] - Disposition Disposition (needs filled in before D/C Order can be placed): Home, Self Care 04/01/25 133 Neeraj Mcnulty MD CC: Dr. Mike Aburto MD Signed [facility] MR/POSTOP.[facility] 04-01-2025 MR/POSTOP.[facility] Medical Records Department [address] [place] [address] Anesthesia Postop Eval I 04/01/25 1336 MR#: [id number] Acct: [id number] Name: TAMRA GUZMAN Rep #: [id number] : 1955 70 From: Fabiano Fall CRNA PCP: Dr. Mike Aburto MD Status:REG SDC Y Race: C Location: [place] [address] Anesthesia: Postop Eval I Current Vital Signs Temperature: 97 F Pulse Rate: 63 Blood Pressure: 159/99 Respiratory Rate: 16 Pulse Ox: 96 Assessment Airway patent: Yes Spontaneous unlabored respirations: Yes nausea: No Vomiting: No Anesthesia Complication: No Fluid Hydration Crystalloid volume administer (ml): 1,000 Total IV fluid infused: 1,000 Progress Note Anesthesia document: Postop Eval 1 completed: Yes 04/01/25 1336 Date Fabianoanjelica AlbaBayamon MANAGER SHIPPING Cosigner Signature: Date CC: Signed Normal [facility] [id number] 04-01-2025 MR/POSTOPAN2 [facility] Medical Records Department [address] [place] [address] Anesthesia Postop Eval II 04/01/25 1547 MR#: [id number] Acct: [id number] Name: TAMRA GUZMAN Rep #: [id number] : 1955 70 From: Eunice Garay MANAGER SHIPPING PCP: Dr. Mike Aburto MD Status:REG [facility] Y Race: C Location: [place] [address] Anesthesia Postop Eval I Sum Postop Eval Completion status Anesthesia document: Postop Eval 1 completed: Yes Anesthesia Postop Eval I Summary Anesthesia Postop Eval I Summary: Anesthesia Postop Eval I: Assessment Summary Airway patent Yes 04/01/25 13:36 MANAGER [email or web address] Spontaneous unlabored Yes 04/01/25 13:36 MANAGER [email or web address].TNES respirations Mental status nausea No 04/01/25 13:36 MANAGER [email or web address].TNES Vomiting No 04/01/25 13:36 MANAGER [email or web address].TNES Anesthesia Postop Eval I: Fluid Summary Crystalloid volume administer 1,000 04/01/25 13:36 MANAGER [email or web address].TNES (ml) Colloids volume administered ( ml) Blood Product volume administered (ml) Total IV fluid infused 1,000 04/01/25 13:36 MANAGER [email or web address].TNES Anesthesia Postop Eval I: Summary Notes Anesthesia Complication No 04/01/25 13:36 MANAGER [email or web address].TNES Anesthesia Complication Comment: Post-operative progress note Anesthesia: Postop Eval II Evaluation Mental status: Awake Pain Level: 2 nausea: No Vomiting: No 04/01/25 1547 Date Eunice Garay MANAGER SHIPPING Cosigner Signature: Date CC: Signed Normal [facility] Operative Reporton [address] [facility] Medical Records Department [address] [place] [address] Operative Report 04/01/25 1333 MR#: [id number] Acct: [id number] Name: TAMRA GUZMAN Rep #: [id number] : 1955 70 From: Neeraj Mcnulty MD PCP: Dr. Mike Aburto MD Status:[facility] Location: [place] [address] Operative Report (Standard) Operative Information Date of Procedure: 04/01/25 Pre-Operative Diagnosis: Right kidney stone Post-Operative Diagnosis: The same Surgery/Procedure Performed: Right extracorporeal shockwave lithotripsy engine setter: No Type of Anesthesia: General RN Documented Start/Stop Times: Operation Date: 04/01/25 11:15 Case Time Into Pre-Op 04/01/25 09:32 Out of Pre-Op 04/01/25 12:33 Anesthesia Start 04/01/25 12:38 Into Room 04/01/25 12:38 Procedure Start 04/01/25 12:49 Procedure End 04/01/25 13:26 Anesthesia End 04/01/25 13:31 Out of Room 04/01/25 13:31 Procedure Start Time: 13:31 Procedure Stop Time: 13:33 Select all DRAINS/GRAFTS/IMPLANTS that apply: None Estimated Blood Loss: None Specimen collected: No Description of surgery: Patient is taken back to the operating room after smooth induction of anesthesia who placed upon on the table we localize a stone in the right upper pole of the kidney and then the F2 focal point of the shockwave machine was focused on the stone we then proceeded with shockwave lithotripsy rate of 90 shocks per minute increasing her power slowly we did a total of 3000 shocks to the stone up to 7 kV a month the stone was monitored during the fragmentation and the stone broke up completely at the end of the treatment cycle. Patient anesthetic was reversed taken back to the PACU in stable condition he will follow-up in the office in a few weeks with an x-ray. Surgical Findings: Stone broke up all the way with shockwave lithotripsy Complications Complications: No Admit VTE Documentation VTE Present on Admission: No VTE Mechan Device Prophylaxis: SCD's VTE Pharm Prophylaxis ordered?: No 04/01/25 5664 Cosigner Signature (if applicable): CC: Dr. Neeraj Mcnulty MD; Dr. Mike Aburto MD Signed Normal [facility] Lyme Antibodies,W Bloton Lyme Additional Comment Normal . [facility] Comment on above: Result Comment: Per CDC criteria, the Lyme IgG Immunoblot is interpreted as positive if IgG-class antibodies are detected to 5 or more B. burgdorferi proteins, and the Lyme IgM Immunoblot is interpreted as positive if IgM-class antibodies are detected to 2 or more B. burgdorferi proteins. Immunoblot patterns not meeting these criteria should not be interpreted as positive. Epitopes from certain B. burgdorferi proteins (e.g., p41) are conserved across other bacteria, which may lead to the detection of IgM-and/or IgG class antibodies on the Lyme disease immunoblots in patients without Lyme disease. Immunoblot should only be ordered on specimens that are positive or equivocal by an FDA-licensed Lyme disease antibody screening test (e.g., EIA). Results of the Lyme IgM immunoblot should not be considered in patients with 30 or more days of symptoms. Performed at: [address] [id number] Environmental Property Assessor: Hue Davidson MD, Phone: [phone] Performed By: #### L [id number] #### [facility] [address] [place], [place], [id number] LYME IgG INTERP Negative Normal Negative [facility] Comment on above: Performed By: #### [id number] #### [facility] [address] [place], [address] LYME IgM INTERP Negative Normal Negative [facility] Comment on above: Result Comment: Jorge moreland Note: Lyme immunoblot alone is not recommended for the diagnosis of Lyme disease. Current guidelines recommend the use of a two-tiered approach to Lyme serology testing to improve the sensitivity and specificity of testing. [facility] offers test code 010209 Lyme Disease Serology with Reflex to aid in the diagnosis of Lyme Disease. Performed By: #### L [id number] #### [facility] [address] [place], [address] P18 Ab Absent Normal . [facility] Comment on above: Performed By: #### L [id number] #### [facility] [address] [place], [address] P23 Ab Absent Normal . [facility] Comment on above: Performed By: #### L [id number] #### [facility] [address] [place], [address] P28 Ab Absent Normal . [facility] Comment on above: Performed By: #### L [id number] #### [facility] [address] [place], [address] P30 Ab Absent Normal . [facility] Comment on above: Performed By: #### L [id number] #### [facility] [address] [place], [address] P39 Ab Absent Normal . [facility] Comment on above: Performed By: #### L [id number] #### [facility] [address] [place], [address] P41 Ab Absent Normal . [facility] Comment on above: Performed By: #### L [id number] #### [facility] [address] [place], [address] P45 Ab Absent Normal . [facility] Comment on above: Performed By: #### L [id number] #### [facility] [address] [place], [address] P58 Ab Absent Normal . [facility] Comment on above: Performed By: #### L [id number] #### [facility] [address] [place], [address] P66 Ab Absent Normal . [facility] Comment on above: Performed By: #### L [id number] #### [facility] [address] [place], [address] P93 Ab Absent Normal . [facility] Comment on above: Performed By: #### L [id number] #### [facility] [address] [place], [address] MR/PAT.ANEon 03-30-2025 MR/PAT.ANE [facility] Medical Records Department [address] [place] [address] PAT - Anesthesia 03/30/252058 MR#: [id number] Acct: [id number] Name: TAMRA GUZMAN Rep #: [id number] : 1955 70 From: Daljit Thomas MD PCP: Dr. Mike Aburto MD Status:PRE [facility] Y Race: C Location: [facility] Pre-Assessment Diagnosis/Proposed Procedure Planned Operative Procedure(s): (R) ESWL Anesthesia History Anesthesia History - garnisher: Anesthesia History - garnisher Hx Hospitalization Yes: NEUROSTIMULATOR 03/30/25 09:32 REPLACED Any Problems With Anesthesia No 03/30/25 09:32 Cholinesterase deficiency No 03/30/25 09:32 You/Your Family Experience No 03/30/25 09:32 fever (hyperthermia) with Relationship Recent Exposure to Contagious Disease Does patient have nerve Yes 03/30/25 09:32 stimulator Patient instructed to have device shut off --Does patient have Pacemaker or ICD? When Was Last Pacemaker Check QUESTION #4 FULL TEXT: You/Your Family Experience fever (hyperthermia) with Anesthesia Last Oral Intake Last Oral intake: Last Oral Intake NPO since Meds taken in AM with sips of water? Meds patient instructed to take am of surgery PONV PONV - garnisher: PONV - garnisher Female No 03/30/25 09:32 HX of Motion Sickness Yes 03/30/25 09:32 HX of N/V After Surgery Yes 03/30/25 09:32 Non-Smoker Yes 03/30/25 09:32 Duration of Surgery greater No 03/30/25 09:32 than 60 minutes Number of Risk Factors 3 03/30/25 09:32 PONV Score Moderate Risk 03/30/25 09:32 Height Weight Height Weight: Anesthesia: Height Weight Height 6 ft 02/28/24 10:03 Respiratory Assessment Respiratory Assessment - garnisher: Respiratory Tract Infection Hx - garnisher Hx Respiratory Tract Infection No 03/30/25 09:32 STOP Sleep Apnea STOP Sleep Apnea - garnisher: STOP Sleep Apnea - garnisher Hx Hypertension No 03/30/25 09:32 Hx Sleep Apnea Yes 03/30/25 09:32 CPAP Yes 03/30/25 09:32 BIPAP No 03/30/25 09:32 Do you snore loudly (louder than talking or can be heard Do you often feel tired/ fatigued/ sleepy during daytime? Has anyone observed you stop breathing during sleep? STOP Results Positive 03/30/25 09:32 QUESTION #5 FULL TEXT : Do you snore loudly (louder than talking or can be heard through closed doors)? Tobacco Use History Tobacco Use History - garnisher: Tobacco Use History - garnisher Tobacco Use Smoking Status Never smoker 03/30/25 09:32 Hx Tobacco Use No 03/30/25 09:32 Years Smoking Packs Smoked per Day Smoking Cessation Date was within the last 15 years Hx Smoking Cessation Date Hx Smoking Cessation Counseling Hematologic Medial History Hematologic Hx - garnisher: Hematologic Medical Hx - special investigator Hx of Blood Transfusion No 03/30/25 09:32 Hx of Transfusion in last 3 No 03/30/25 09:32 Months Date of Last Transfusion (if within last 3 months) Ever experience any problems No 03/30/25 09:32 with transfusion(s)? Specify any problems Hx of Preganancy in last 3 N/A 03/30/25 09:32 Months Nurse Filling Out Transfusion VCHRISTIN 03/30/25 09:32 Questions: Date: 03/30/25 03/30/25 09:32 Time: 09:33 03/30/25 09:32 Patient unable to answer at this time (ie. confused, unrespo /Reproduction History /Reproductive History - garnisher: /Reproductive Hx- garnisher Hx Now No 03/30/25 09:32 Gestational Age (in weeks): EDC: Hx Hx Para Hx Section SAB No 03/30/25 09:32 [facility] Medical History (Updated 03/30/25 @ 09:31 by Debra Gutiérrez) Wears hearing aid Cancer History of steroid therapy Rheumatoid arthritis Arthritis Kidney stones High cholesterol Back pain History of IBS Gastric reflux Non-smoker CPAP (continuous positive airway pressure) dependence Sleep apnea History of stress test Cardiology follow-up encounter History of rheumatic fever Hereditary hearing loss Bilateral sensorineural hearing loss Acute maxillary sinusitis, unspecified 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 Normal [facility] Abdomen/Pelvis without Conto n 03-25-2025 Abdomen/Pelvis without Cont [facility] Imaging Services [address] [place] [address] [id number] Abdomen/Pelvis without Cont MR#: [id number] Acct: [id number] Name: TAMRA GUZMAN Rep #: [id number] : 1955 M 70 From: Guido hammond MD PCP: Dr. Mike Aburto MD Status: REG CLI Study: Abdomen/Pelvis without Cont Date of Exam: 03/13 01/04 Exam# [id number] Ordering Dr: Mike Aburto MD PROCEDURE: ABDOMEN/PELVIS [...] out. OVERALL FINAL ASSESSMENT: . Reading Location: [id number] CC: Dr. Mike Aburto MD [employer] Worker: Signed Normal [facility] No Panel InformationOrdered By: Mike Aburto on 03-25-2025 Lyme Disease IgG Ab 30 kDa Band Absent . [facility] Lyme Disease IgG Ab 93 kDa Band Absent . [facility] Lyme Disease IgG West Blot Interp Negative Negative [facility] Lyme Disease IgM Ab (Western Blot) Negative Negative [facility] Comment on above: Please Note: Lyme im munoblot alone is not recommended forthe diagnosis of Lyme disease. Current guidelines recommendthe use of a two-tiered approach to Lyme serology testingto improve the sensitivity and specificity of testing.[facility] offers test code 544088 Lyme Disease Serology withReflex to aid in the diagnosis of Lyme Disease. Lyme Disease Western Blot Comments Comment . [facility] Comment on above: Per CDC criteria, th [...] 30 or more days of symptoms.Performed at: [address] [id number] Director: Hue Davidson MD, Phone: [phone] Absolute lymphocyte countOrd ered By: Mike Aburto on 03-14-2025 Lymphocytes Auto (Unsp spec) [#/Vol] 0.85 10*3/uL 0.83-4.51 [facility] Absolute neutrophil countOrd ered By: Mike Aburto on 03-14-2025 Neutrophils (Bld) [#/Vol] 4.9 10*3/uL 2.0-7.7 [facility] Anion gap in Serum or Plasma Ordered By: Mike Aburto on 03-14-2025 Anion gap [Moles/Vol] 8 mmol/L 5-15 [facility] Automated lymphocyte count a s percentage of total leukocytesOrdered By: Mike Aburto on 03-14-2025 Lymphocytes/100 WBC Auto (Unsp spec) 13.5 % Low 19-41 [facility] BUN/creatinine ratioOrdered By: Mike Aburto on 03-14-2025 Urea nitrogen/Creatinine [Mass ratio] 20.0 mg/mg 10-20 [facility] Basophil percentageOrdered B y: Mike Aburto on 03-14-2025 Basophils/100 WBC (Bld) 0.3 % 0-1 [facility] Bilirubin, totalOrdered By: Mike Aburto on 03-14-2025 Bilirubin [Mass/Vol] 0.61 mg/dL 0.00-1.30 [facility] CBC W/Diff, Automatedon Absolute Lymph 0.85 X10 3/uL Normal 0.83-4.51 [facility] Comment on above: Performed By: #### L 100.0100, L500.4050, L501.9520, L506.1001 ####[facility] [address] [place], [address] Absolute Neut 4.9 X10 3/uL Normal 2.0-7.7 [facility] Comment on above: Performed By: #### L 100.0100, L500.4050, L501.9520, L506.1001 ####[facility] [address] [place], [address] Basophils/100 WBC (Bld) 0.3 % Normal 0-1 [facility] Comment on above: Performed By: #### L 100.0100, L500.4050, L501.9520, L506.1001 ####[facility] [address] [place], [address] Eosinophils/100 WBC (Bld) 1.3 % Normal 0-5 [facility] Comment on above: Performed By: #### L 100.0100, L500.4050, L501.9520, L506.1001 ####[facility] [address] [place], [address] Erythrocyte distribution width (RBC) [Ratio] 13.1 % Normal 11.6-14.6 [facility] Comment on above: Performed By: #### L 100.0100, L500.4050, L501.9520, L506.1001 ####[facility] [address] [place], [address] Hematocrit (Bld) [Volume fraction] 44.6 % Normal 40-54 [facility] Comment on above: Performed By: #### L 100.0100, L500.4050, L501.9520, L506.1001 ####[facility] [address] [place], [address] Hemoglobin (Bld) [Mass/Vol] 14.6 g/dL Normal 13.0-16.5 [facility] Comment on above: Performed By: #### L 100.0100, L500.4050, L501.9520, L506.1001 ####[facility] [address] [place], [address] IG% 0.300 Normal 0.0-0.9 [facility] Comment on above: Result Comment: IG% - Immature Granulocytes (promyelocytes, myelocytes and metamyelocytes) > 1% indicates that a LEFT SHIFT is Present. Performed By: #### L 100.0100, L500.4050, L501.9520, L506.1001 ####[facility] [address] [place], [address] Lymphocytes/100 WBC (Bld) 13.5 % Low 19-41 [facility] Comment on above: Performed By: #### L 100.0100, L500.4050, L501.9520, L506.1001 ####[facility] [address] [place], [address] MCH (RBC) [Entitic mass] 28.2 pg Normal 27.0-32.0 [facility] Comment on above: Performed By: #### L 100.0100, L500.4050, L501.9520, L506.1001 ####[facility] [address] [place], [address] MCHC (RBC) [Mass/Vol] 32.7 g/dL Normal 32-36 [facility] Comment on above: Performed By: #### L 100.0100, L500.4050, L501.9520, L506.1001 ####[facility] [address] [place], [address] MCV (RBC) [Entitic vol] 86.1 fL Normal 80-94 [facility] Comment on above: Performed By: #### L 100.0100, L500.4050, L501.9520, L506.1001 ####[facility] [address] [place], [address] Monocytes/100 WBC (Bld) 6.8 % Normal 0-10 [facility] Comment on above: Performed By: #### L 100.0100, L500.4050, L501.9520, L506.1001 ####[facility] [address] [place], [address] Neutrophils/100 WBC (Bld) 77.8 % High 47-70 [facility] Comment on above: Performed By: #### L 100.0100, L500.4050, L501.9520, L506.1001 ####[facility] [address] [place], [address] Nucleated RBC (Bld) [#/Vol] 0 10*3/uL Normal 0-5 [facility] Comment on above: Performed By: #### L 100.0100, L500.4050, L501.9520, L506.1001 ####[facility] [address] [place], [address] Platelet mean volume (Bld) [Entitic vol] 10.8 fL Normal 6.2-12.0 [facility] Comment on above: Performed By: #### L 100.0100, L500.4050, L501.9520, L506.1001 ####[facility] [address] [place], [address] Platelets (Bld) [#/Vol] 147 10*3/uL Low 150-450 [facility] Comment on above: Performed By: #### L 100.0100, L500.4050, L501.9520, L506.1001 ####[facility] [address] [place], [address] RBC (Bld) [#/Vol] 5.18 10*6/uL Normal 4.6-6.2 [facility] Comment on above: Performed By: #### L 100.0100, L500.4050, L501.9520, L506.1001 ####[facility] [address] [place], [address] RDW SD 40.9 fl Normal 35.1-43.9 [facility] Comment on above: Performed By: #### L 100.0100, L500.4050, L501.9520, L506.1001 ####[facility] [address] [place], [address] WBC (Bld) [#/Vol] 6.3 10*3/uL Normal 4.4-11.0 [facility] Comment on above: Performed By: #### L 100.0100, L500.4050, L501.9520, L506.1001 ####[facility] [address] [place], [address] Carbon dioxide, total [Moles /volume] in Central venous bloodOrdered By: Mike Aburto on 03-14-2025 CO2 [Moles/Vol] 27.6 mmol/L 21.0-32.0 [facility] Chloride assayOrdered By: Joseph Aburto on 03-14-2025 Chloride [Moles/Vol] 105 mmol/L 98-108 [facility] Comprehensive Metabolic Prof ilon 03-14-2025 Albumin [Mass/Vol] 4.1 g/dL Normal 3.4-4.8 [facility] Comment on above: Performed By: #### L 100.0100, L500.4050, L501.9520, L506.1001 ####[facility] [address] [place], [address] Albumin/Globulin [Mass ratio] 1.8 {ratio} Normal 0.9-2.4 [facility] Comment on above: Performed By: #### L 100.0100, L500.4050, L501.9520, L506.1001 ####[facility] [address] [place], [address] ALK PHOS 107 U/L Normal 40-129 [facility] Comment on above: Performed By: #### L 100.0100, L500.4050, L501.9520, L506.1001 ####[facility] [address] [place], [address] ALT [Catalytic activity/Vol] 25 U/L Normal <=46 [facility] Comment on above: Performed By: #### L 100.0100, L500.4050, L501.9520, L506.1001 ####[facility] [address] [place], [address] AST [Catalytic activity/Vol] 32 U/L Normal <=37 [facility] Comment on above: Performed By: #### L 100.0100, L500.4050, L501.9520, L506.1001 ####[facility] [address] [place], [address] Bilirubin [Mass/Vol] 0.61 mg/dL Normal 0.00-1.30 [facility] Comment on above: Performed By: #### L 100.0100, L500.4050, L501.9520, L506.1001 ####[facility] [address] [place], [address] BUN/CRE 20.0 RATIO Normal 10-20 [facility] Comment on above: Performed By: #### L 100.0100, L500.4050, L501.9520, L506.1001 ####[facility] [address] [place], [address] Calcium [Mass/Vol] 9.2 mg/dL Normal 7.6-11.0 [facility] Comment on above: Performed By: #### L 100.0100, L500.4050, L501.9520, L506.1001 ####[facility] [address] [place], [address] Chloride [Moles/Vol] 105 mmol/L Normal 98-108 [facility] Comment on above: Performed By: #### L 100.0100, L500.4050, L501.9520, L506.1001 ####[facility] [address] [place], [address] CO2 [Moles/Vol] 27.6 mmol/L Normal 21.0-32.0 [facility] Comment on above: Performed By: #### L 100.0100, L500.4050, L501.9520, L506.1001 ####[facility] [address] [place], [address] Creatinine [Mass/Vol] 1.02 mg/dL Normal 0.70-1.20 [facility] Comment on above: Performed By: #### L 100.0100, L500.4050, L501.9520, L506.1001 ####[facility] [address] [place], [address] GAP 8 Normal 5-15 [facility] Comment on above: Performed By: #### L 100.0100, L500.4050, L501.9520, L506.1001 ####[facility] [address] [place], [address] GFR/1.73 sq M.predicted among non-blacks MDRD (S/P/Bld) [Vol rate/Area] 78 mL/min/{1.73_m2} Normal >60 [facility] Comment on above: Result Comment: mL/m in/1.73m2 CKD-EPI Creatinine Equation (2020) Performed By: #### L 100.0100, L500.4050, L501.9520, L506.1001 ####[facility] [address] [place], [address] Globulin (S) [Mass/Vol] 2.3 g/dL Normal 2.2-4.2 [facility] Comment on above: Performed By: #### L 100.0100, L500.4050, L501.9520, L506.1001 ####[facility] [address] [place], [address] Glucose [Mass/Vol] 91 mg/dL Normal 70-99 [facility] Comment on above: Performed By: #### L 100.0100, L500.4050, L501.9520, L506.1001 ####[facility] [address] [place], [address] Potassium [Moles/Vol] 4.5 mmol/L Normal 3.3-5.1 [facility] Comment on above: Performed By: #### L 100.0100, L500.4050, L501.9520, L506.1001 ####[facility] [address] [place], [address] Sodium [Moles/Vol] 141 mmol/L Normal 133-145 [facility] Comment on above: Performed By: #### L 100.0100, L500.4050, L501.9520, L506.1001 ####[facility] [address] [place], [address] T PROT 6.3 g/dL Normal 5.9-8.4 [facility] Comment on above: Performed By: #### L 100.0100, L500.4050, L501.9520, L506.1001 ####[facility] [address] [place], [address] Urea nitrogen [Mass/Vol] 20 mg/dL High 4-19 [facility] Comment on above: Performed By: #### L 100.0100, L500.4050, L501.9520, L506.1001 ####[facility] [address] [place], [address] Eosinophil percentageOrdered By: Mike Aburto on 03-14-2025 Eosinophils/100 WBC (Bld) 1.3 % 0-5 [facility] Erythrocyte distribution wid th ratioOrdered By: Mike Aburto on 03-14-2025 Erythrocyte distribution width (RBC) [Ratio] 13.1 % 11.6-14.6 [facility] Erythrocyte distribution wid th standard deviationOrdered By: Mike Aburto on 03-14-2025 Erythrocyte distribution width (RBC) [Ratio] 40.9 fl 35.1-43.9 [facility] Glomerular filtration rate ( GFR) estimation/1.73 sq m using serum, plasma, or whole bOrdered By: Mike Aburto on 03-14-2025 GFR/1.73 sq M.predicted among non-blacks MDRD (S/P/Bld) [Vol rate/Area] 78 mL/min/{1.73_m2} >60 [facility] Comment on above: mL/min/1.73m2 CKD-EP I Creatinine Equation (2020) Hematocrit Auto (Bld) [Volum e fraction]Ordered By: Mike Aburto on 03-14-2025 Hematocrit (Bld) [Volume fraction] 44.6 % 40-54 [facility] Hemoglobin measurementOrdere d By: Mike Aburto on 03-14-2025 Hemoglobin (Bld) [Mass/Vol] 14.6 g/dL 13.0-16.5 [facility] Immature granulocytes/100 WB C Auto (Bld)Ordered By: Mike Aburto on 03-14-2025 Immature granulocytes/100 WBC (Bld) 0.300 % 0.0-0.9 [facility] Comment on above: IG% - Immature Granu locytes (promyelocytes, myelocytes and metamyelocytes) > 1% indicates that a LEFT SHIFT is Present. Laboratory - Chemistry and C hemistry - challengeOrdered By: Mike Aburto on 03-14-2025 AST [Catalytic activity/Vol] 32 U/L <38 [facility] MCV (mean corpuscular volume ) determinationOrdered By: Mike Aburto on 03-14-2025 MCV (RBC) [Entitic vol] 86.1 fL 80-94 [facility] Mean corpuscular hemoglobin (MCH) determinationOrdered By: Mike Aburto on 03-14-2025 MCH (RBC) [Entitic mass] 28.2 pg 27.0-32.0 [facility] Mean corpuscular hemoglobin concentration (MCHC) determinationOrdered By: Mike Aburto on 03-14-2025 MCHC (RBC) [Mass/Vol] 32.7 g/dL 32-36 [facility] Mean platelet volume determi nationOrdered By: Mike Aburto on 03-14-2025 Platelet mean volume (Bld) [Entitic vol] 10.8 fL 6.2-12.0 [facility] Monocyte percentageOrdered B y: Mike Aburto on 03-14-2025 Monocytes/100 WBC (Bld) 6.8 % 0-10 [facility] Neutrophil percentageOrdered By: Mike Aburto on 03-14-2025 Neutrophils/100 WBC (Bld) 77.8 % High 47-70 [facility] Nucleated red blood cell per centageOrdered By: Mike Aburto on 03-14-2025 Nucleated RBC/100 WBC (Bld) [Ratio] 0 % 0-5 [facility] Platelet countOrdered By: Joseph Aburto on 03-14-2025 Platelets (Bld) [#/Vol] 147 10*3/uL Low 150-450 [facility] Potassium measurement (mass/ volume)Ordered By: Mike Aburto on 03-14-2025 Potassium (Unsp spec) [Mass/Vol] 4.5 mmol/L 3.3-5.1 [facility] RBC Auto (Bld) [#/Vol]Ordere d By: Mike Aburto on 03-14-2025 RBC (Bld) [#/Vol] 5.18 10*6/uL 4.6-6.2 [facility] Serum creatinine measurement (mass/volume)Ordered By: Mike Aburto on 03-14-2025 Creatinine [Mass/Vol] 1.02 mg/dL 0.70-1.20 [facility] Serum globulin measurementOr dered By: Mike Aburto on 03-14-2025 Globulin (S) [Mass/Vol] 2.3 g/dL 2.2-4.2 [facility] Serum glucose measurement (m ass/volume)Ordered By: Mike Aburto 03-14-2025 Glucose [Mass/Vol] 91 mg/dL 70-99 [facility] Serum or plasma alanine rios otransferase (ALT) measurementOrdered By: Mike Aburto 03-14-2025 ALT [Catalytic activity/Vol] 25 U/L <47 [facility] Serum or plasma albumin mamie urement (mass/volume)Ordered By: Mike Aburto 03-14-2025 Albumin [Mass/Vol] 4.1 g/dL 3.4-4.8 [facility] Serum or plasma albumin/glob ulin mass ratioOrdered By: Mike Aburto 03-14-2025 Albumin/Globulin [Mass ratio] 1.8 {ratio} 0.9-2.4 [facility] Serum or plasma alkaline ruddy sphatase measurementOrdered By: Mike Aburto 03-14-2025 ALP [Catalytic activity/Vol] 107 U/L 40-129 [facility] Serum or plasma calcium mamie urement (mass/volume)Ordered By: Mike Aburto 03-14-2025 Calcium [Mass/Vol] 9.2 mg/dL 7.6-11.0 [facility] Serum or plasma urea nitroge n measurement (mass/volume)Ordered By: Mike Aburto 03-14-2025 Urea nitrogen [Mass/Vol] 20 mg/dL High 4-19 [facility] Sodium levelOrdered By: Mike Aburto 03-14-2025 Sodium [Moles/Vol] 141 mmol/L 133-145 [facility] TSH DL <= 0.005 mIU/L QnOrde red By: Mike Aburto on 03-14-2025 TSH Qn 1.040 uIU/mL 0.300-4.20 0 [facility] Thyroid Stim Hormone (TSH)on 03-14-2025 TSH 1.040 uIU/mL Normal 0.300-4.20 0 [facility] Comment on above: Performed By: #### L 100.0100, L500.4050, L501.9520, L506.1001 ####[facility] [address] [place], [place], [id number] Total proteinOrdered By: Mike Aburto on 03-14-2025 Protein [Mass/Vol] 6.3 g/dL 5.9-8.4 [facility] Vitamin D,25 Hydroxyon 03-14 Vitamin D 25-OH 21.9 ng/mL Low 30-100 [facility] Comment on above: Result Comment: Felecia min D Status Deficiency: <20 ng/mL (50nmol/L) Insufficiency: 20-30 ng/mL (50-75 nmol/L) Sufficiency: 30-100 ng/mL (75-250 nmol/L) Toxicity: >100 ng/mL (>250 nmol/L) Performed By: #### L 100.0100, L500.4050, L501.9520, L506.1001 ####[facility] [address] [place], [place], [address] White blood cell (WBC) count Ordered By: Mike Aburto on 03-14-2025 WBC (Bld) [#/Vol] 6.3 10*3/uL 4.4-11.0 [facility] PT/INRon 02-22-2025 INR Coag (PPP) [Relative time] 1.0 {INR} Normal 0.8-1.1 [facility] Comment on above: Order Comment: Zach ferrara the induction phase of oral anticoagulation, the INR may not reflect the anticoagulation status of the patient. Therapeutic ranges for INR's are: Most clinical situations: INR 2.0-3.0 Mechanical Prosthetic Valve: INR 2.5-3.5 Critical: INR >5.0 Performed By: #### 4 6391 #### [facility] [address] [place], [place] [address] Jeffrey Kohli M.D. [id number] PT Coag (PPP) [Time] 13.1 s Normal 11.8-14.3 [facility] Comment on above: Order Comment: Zach ferrara the induction phase of oral anticoagulation, the INR may not reflect the anticoagulation status of the patient. Therapeutic ranges for INR's are: Most clinical situations: INR 2.0-3.0 Mechanical Prosthetic Valve: INR 2.5-3.5 Critical: INR >5.0 Performed By: #### 4 6391 #### [facility] [address] [place], [place] [address] Jeffrey Kohli M.D. [id number] TYPE AND SCREENon 02-22-2025 TYPE AND SCREEN ABORH: O Positive AB SCREEN: Negative EXPIRATION DATE: 02/25/2025 23:59 EST Normal [facility] BASIC METABOLIC PANELon 050 Anion gap [Moles/Vol] 11 mmol/L Normal 10-20 [facility] Comment on above: Order Comment: [facility] [place] [facility] has implemented the eGFR calculation approach that does not have a coefficient for race that conforms to the NKF-ASN Task Force Recommendations. Performed By: #### 4 6124 #### [facility] [address] [place] [id number] Jeffrey Kohli M.D. [id number] Calcium [Mass/Vol] 8.8 mg/dL Normal 8.4-10.2 [facility] Comment on above: Order Comment: [facility] [place] [facility] has implemented the eGFR calculation approach that does not have a coefficient for race that conforms to the NKF-ASN Task Force Recommendations. Performed By: #### 4 6124 #### [facility] [address] [place], [place] [address] Jeffrey Kohli M.D. [id number] Chloride [Moles/Vol] 105 mmol/L Normal 98-108 [facility] Comment on above: Order Comment: [facility] [place] [facility] has implemented the eGFR calculation approach that does not have a coefficient for race that conforms to the NKF-ASN Task Force Recommendations. Performed By: #### 4 6124 #### LAB [address] [place], [place] [address] Jeffrey Kohli M.D. [id number] Creatinine [Mass/Vol] 0.99 mg/dL Normal 0.80-1.30 [facility] Comment on above: Order Comment: [facility] [place] [facility] has implemented the eGFR calculation approach that does not have a coefficient for race that conforms to the NKF-ASN Task Force Recommendations. Performed By: #### 4 6124 #### LAB [address] [place] [address] Jeffrey Kohli M.D. [id number] EGFR 81 mL/min/1.73 m2 Normal >=60 [facility] Comment on above: Order Comment: [facility] [place] [facility] has implemented the eGFR calculation approach that does not have a coefficient for race that conforms to the NKF-ASN Task Force Recommendations. Result Comment: Katty mated GFR was calculated using the 2020 CKD-EPI creatinine equation. Performed By: #### 4 6124 #### LAB [address] [place] [address] Jeffrey Kohli M.D. [id number] Glucose [Mass/Vol] 89 mg/dL Normal 65-99 [facility] Comment on above: Order Comment: [facility] [place] [facility] has implemented the eGFR calculation approach that does not have a coefficient for race that conforms to the NKF-ASN Task Force Recommendations. Performed By: #### 4 6124 #### LAB [address] [place], [place] [address] Jeffrey Kohli M.D. [id number] HCO3 (Bld) [Moles/Vol] 28 mmol/L Normal 21-32 [facility] Comment on above: Order Comment: [facility] [place] [facility] has implemented the eGFR calculation approach that does not have a coefficient for race that conforms to the NKF-ASN Task Force Recommendations. Performed By: #### 4 6124 #### MH LAB [address] [place] [address] Jeffrey Kohli M.D. [id number] Potassium [Moles/Vol] 4.2 mmol/L Normal 3.5-5.1 [facility] Comment on above: Order Comment: [facility] [place] [facility] has implemented the eGFR calculation approach that does not have a coefficient for race that conforms to the NKF-ASN Task Force Recommendations. Performed By: #### 4 6124 #### LAB [address] [place] [address] Jeffrey Kohli M.D. [id number] Sodium [Moles/Vol] 140 mmol/L Normal 135-145 [facility] Comment on above: Order Comment: [facility] [place] [facility] has implemented the eGFR calculation approach that does not have a coefficient for race that conforms to the NKF-ASN Task Force Recommendations. Performed By: #### 4 6124 #### LAB [address] [place] [address] Jeffrey Kohli M.D. [id number] Urea nitrogen [Mass/Vol] 15 mg/dL Normal 8-25 [facility] Comment on above: Order Comment: [facility] [place] Laboratory [facility] has implemented the eGFR calculation approach that does not have a coefficient for race that conforms to the NKF-ASN Task Force Recommendations. Performed By: #### 4 6124 #### LAB [address] [place] [address] Jeffrey Kohli M.D. [id number] Urea nitrogen/Creatinine [Mass ratio] 15.2 mg/mg Normal 10.0-20.0 [facility] Comment on above: Order Comment: [facility] [place] [facility] has implemented the eGFR calculation approach that does not have a coefficient for race that conforms to the NKF-ASN Task Force Recommendations. Performed By: #### 4 6124 #### MH LAB [address] [place] [address] Jeffrey Kohli M.D. [id number] CBCon 02-14-2025 AUTO NRBC 0.0 % Normal [facility] Comment on above: Performed By: #### 4 [id number] #### MH LAB [address] [place] [address] Jeffrey Kohli M.D. [id number] AUTO NRBC ABS COUNT 0.00 K/mcL Normal 0.00-0.00 [facility] Comment on above: Performed By: #### 4 [id number] #### LAB [address] [place] [address] Jeffrye Kohli M.D. [id number] Erythrocyte distribution width (RBC) [Ratio] 13.2 % Normal 11.6-14.8 [facility] Comment on above: Performed By: #### 4 [id number] #### LAB [address] [place] [address] Jeffrey Kohli M.D. [id number] Hematocrit (Bld) [Volume fraction] 44.5 % Normal 41.0-53.0 [facility] Comment on above: Performed By: #### 4 [id number] #### LAB [address] [place] [address] Jeffrey Kohli M.D. [id number] Hemoglobin (Bld) [Mass/Vol] 14.4 g/dL Normal 13.5-17.5 [facility] Comment on above: Performed By: #### 4 [id number] #### LAB [address] [place] [address] Jeffrey Kohli M.D. [id number] MCH (RBC) [Entitic mass] 28.0 pg Normal 26.0-34.0 [facility] Comment on above: Performed By: #### 4 [id number] #### LAB [address] [place] [address] Jeffrey Kohli M.D. [id number] MCV (RBC) [Entitic vol] 86.4 fL Normal 80.0-100.0 [facility] Comment on above: Performed By: #### 4 [id number] #### LAB [address] [place] [address] Jeffrey Kohli M.D. [id number] MEAN CORPUSCULAR HEMOGLOBIN CONC 32.4 g/dL Normal 31.0-37.0 [facility] Comment on above: Performed By: #### 4 [id number] #### LAB [address] [place] [address] Jeffrey Kohli M.D. [id number] Platelet mean volume (Bld) [Entitic vol] 10.2 fL Normal 9.4-12.4 [facility] Comment on above: Performed By: #### 4 [id number] #### LAB [address] [place] [address] Jeffrey Kohli M.D. [id number] Platelets (Bld) [#/Vol] 147 10*3/uL Low 150-400 [facility] Comment on above: Performed By: #### 4 [id number] #### LAB [address] [place] [address] Jeffrey Kohli M.D. [id number] RBC (Bld) [#/Vol] 5.15 10*6/uL Normal 4.50-5.90 [facility] Comment on above: Performed By: #### 4 [id number] #### LAB [address] [place] [address] Jeffrey Kohli M.D. [id number] WBC (Bld) [#/Vol] 5.16 10*3/uL Normal 4.50-11.00 [facility] Comment on above: Performed By: #### 4 [id number] #### LAB [address] [place] [address] Jeffrey Kohli M.D. [id number] MRSA CULTURE/SCREENon 2024 MRSA CULTURE/SCREEN MRSA CULTURE No Methicillin Resistant Staphylococcus (MRSA) Isolated [facility] Comment on above: Performed By: #### 4 6124 #### LAB [address] [place] [address] Jeffrey Kohli M.D. [id number] TYPE AND SCREENon 02-14-2025 TYPE AND SCREEN ABORH: O Positive AB SCREEN: Negative EXPIRATION DATE: 03/07/2025 23:59 EST [facility] XR CHEST AP/PA AND LATon [...] on FriFebruary 14, 2025 3:46:30 PM EDT [facility] Comment on above: Order Comment: [facility] [place] [facility] has implemented the eGFR calculation [...] FriJan 07, 2025 9:31:24 AM EDT Normal [facility] Comment on above: Order Comment: Injur [...] on FriJan 07, 2025 9:31:24 AM EDT [facility] Comment on above: Order Comment: Injur y/Trauma or Illness?:Illness/Other How long have you had these symptoms (acute/chronic)?:Acute Reason for exam?:evalaute stimulator for migration., Status post lumbar surgery, History of cancer?:.u Surgeries, chemotherapy, or radiation?:.u Type of Exam?:Ongoing Additional signs and symptoms?:. Bilirubin directOrdered By: Cathleen Fermin on 12-21-2024 Bilirubin.direct [Mass/Vol] 0.28 mg/dL 0.00-0.30 [facility] Bilirubin, totalOrdered By: Cathleen Fermin on 12-21-2024 Bilirubin [Mass/Vol] 0.58 mg/dL 0.00-1.30 [facility] Calculated very low density lipoprotein (VLDL) cholesterol measurementOrdered By: Cathleen Fermin on 12-21-2024 Calculated very low density lipoprotein (VLDL) cholesterol measurement 11 mg/dL 5-40 [facility] VLDL Cholesterol 11 mg/dL 5-40 [facility] LDL calc ser/plasOrdered By: Cathleen Fermin on 12-21-2024 Cholesterol in LDL [Mass/Vol] 69 mg/dL [facility] Comment on above: Udrlfclmnu=331-472 m g/dL & Higher Qinz=091 mg/dL or greater LDL Cholesterol, Calculated 69 mg/dL [facility] Comment on above: Wmbrtovrpo=129-949 m g/dL & Higher Wpxv=690 mg/dL or greater Laboratory - Chemistry and C hemistry - challengeOrdered By: Cathleen Fermin on 12-21-2024 AST [Catalytic activity/Vol] 30 U/L <38 [facility] Lipid Profileon 12-21-2024 CHOL:HDL 2.08 Normal [facility] Comment on above: Performed By: #### L 500.4100, L500.3400 ####[facility] [address] [place], [address] Cholesterol [Mass/Vol] 155 mg/dL Normal <=200 [facility] Comment on above: Result Comment: Chol esterol level, Desirable <200 mg/dL Borderline high cholesterol 200-239 mg/dL High cholesterol >=240 mg/dL Recommendations of the NCEP Adult Treatment Panel for the following risk-cutoff thresholds for the [place] population. Performed By: #### L 500.4100, L500.3400 ####[facility] [address] [place], [address] Cholesterol in HDL [Mass/Vol] 74 mg/dL Normal [facility] Comment on above: Result Comment: Gaby onal Cholesterol Education Program (NCEP) guidelines: <40 mg/dL: Low HDL-cholesterol (major risk factor for CHD) >= 60 mg/dL: High HDL-cholesterol (negative risk factor for CHD) HDL-cholesterol is affected by a number of factors, e.g. smoking, exercise, hormones, sex and age. Performed By: #### L 500.4100, L500.3400 ####[facility] [address] [place], [address] Cholesterol in LDL [Mass/Vol] 69 mg/dL Normal [facility] Comment on above: Result Comment: Bord dklzrs=242-197 mg/dL Higher Frob=398 mg/dL or greater Performed By: #### L 500.4100, L500.3400 ####[facility] [address] [place], [address] Cholesterol in VLDL [Mass/Vol] 11 mg/dL Normal 5-40 [facility] Comment on above: Performed By: #### L 500.4100, L500.3400 ####[facility] [address] [place], [address] Triglyceride [Mass/Vol] 57 mg/dL Normal [facility] Comment on above: Result Comment: The drugs N-Acetylcysteine and Metamizole may falsely depress this assay. Normal range: <150 mg/dL Borderline High: 150-199 mg/dL High: 200-499 mg/dL Very High: >500 mg/dL Performed By: #### L 500.4100, L500.3400 ####[facility] [address] [place], [address] Liver Profileon 12-21-2024 Albumin [Mass/Vol] 3.8 g/dL Normal 3.4-4.8 [facility] Comment on above: Performed By: #### L 500.4100, L500.3400 ####[facility] [address] [place], [address] ALK PHOS 95 U/L Normal 40-129 [facility] Comment on above: Performed By: #### L 500.4100, L500.3400 ####[facility] [address] [place], [address] ALT [Catalytic activity/Vol] 22 U/L Normal <=46 [facility] Comment on above: Performed By: #### L 500.4100, L500.3400 ####[facility] [address] [place], [address] AST [Catalytic activity/Vol] 30 U/L Normal <=37 [facility] Comment on above: Performed By: #### L 500.4100, L500.3400 ####[facility] [address] [place], [address] Bilirubin [Mass/Vol] 0.58 mg/dL Normal 0.00-1.30 [facility] Comment on above: Performed By: #### L 500.4100, L500.3400 ####[facility] [address] [place], [address] Bilirubin.direct [Mass/Vol] 0.28 mg/dL Normal 0.00-0.30 [facility] Comment on above: Performed By: #### L 500.4100, L500.3400 ####[facility] [address] [place], [address] Globulin (S) [Mass/Vol] 2.2 g/dL Normal 2.2-4.2 [facility] Comment on above: Performed By: #### L 500.4100, L500.3400 ####[facility] [address] [place], [address] T PROT 6.0 g/dL Normal 5.9-8.4 [facility] Comment on above: Performed By: #### L 500.4100, L500.3400 ####[facility] [address] [place], [address] Screening total cholesterol/ high density lipoprotein (HDL) cholesterol ratioOrdered By: Cathleen Fermin on 12-21-2024 Cholesterol.total/Chol esterol in HDL [Mass ratio] 2.08 {ratio} [facility] Serum globulin measurementOr dered By: Cathleen Fermin on 12-21-2024 Globulin (S) [Mass/Vol] 2.2 g/dL 2.2-4.2 [facility] Serum or plasma alanine rios otransferase (ALT) measurementOrdered By: Cathleen Fermin on 12-21-2024 ALT [Catalytic activity/Vol] 22 U/L <47 [facility] Serum or plasma albumin mamie urement (mass/volume)Ordered By: Cathleen Fermin on 12-21-2024 Albumin [Mass/Vol] 3.8 g/dL 3.4-4.8 [facility] Serum or plasma alkaline ruddy sphatase measurementOrdered By: Cathleen Fermin on 12-21-2024 ALP [Catalytic activity/Vol] 95 U/L 40-129 [facility] Serum or plasma cholesterol in HDL measurement (mass/volume)Ordered By: Cathleen Fermin on 12-21-2024 Cholesterol in HDL [Mass/Vol] 74 mg/dL >40 [facility] Comment on above: National Cholesterol Education Program (NCEP) guidelines:<40 mg/dL: Low HDL-cholesterol (major risk factor for CHD)>= 60 mg/dL: High HDL-cholesterol (negative risk factor for CHD)HDL-cholesterol is affected by a number of factors, e.g. smoking, exercise, hormones, sex and age. Serum or plasma cholesterol measurement (mass/volume)Ordered By: Cathleen Fermin on 12-21-2024 Cholesterol [Mass/Vol] 155 mg/dL <201 [facility] Comment on above: Cholesterol level, D esirable <200 mg/dLBorderline high cholesterol 200-239 mg/dLHigh cholesterol >=240 mg/dLRecommendations of the NCEP Adult Treatment Panel for the following risk-cutoff thresholds for the [place] population. Total proteinOrdered By: Anton Fermin on 12-21-2024 Protein [Mass/Vol] 6.0 g/dL 5.9-8.4 [facility] Triglycerides measurementOrd ered By: Cathleen Fermin on 12-21-2024 Triglyceride [Mass/Vol] 57 mg/dL <199 [facility] Comment on above: The drugs N-Acetylcy steine and Metamizole may falsely depress this assay. Normal range: <150 mg/dLBorderline High: 150-199 mg/dLHigh: 200-499 mg/dLVery High: >500 mg/dL C-REACTIVE PROTEINon 025 CRP [Mass/Vol] mg/L Normal <8.0 [facility] Comment on above: Performed By: #### 6 124, 809 #### [facility] [place] [address] Marketing And Promotions Manager: Randal Alejandre MD CBC (INCLUDES DIFF/PLT)on Basophils (Bld) [#/Vol] 0.029 10*3/uL Normal 0-200 [facility] Comment on above: Performed By: #### 6 399, 809 #### [facility] [address], [address] [place] [address] Marketing And Promotions Manager: Randal Alejandre MD Basophils/100 WBC (Bld) 0.5 % Normal [facility] Comment on above: Performed By: #### 6 399, 809 #### [facility] [place] [address] Marketing And Promotions Manager: Randal Alejandre MD Eosinophils (Bld) [#/Vol] 0.171 10*3/uL Normal 15-500 [facility] Comment on above: Performed By: #### 6 399, 809 #### [facility] [address] [place] [address] Marketing And Promotions Manager: Randal Alejandre MD Eosinophils/100 WBC (Bld) 3.0 % Normal [facility] Comment on above: Performed By: #### 6 399, 809 #### [facility] [place] [address] Marketing And Promotions Manager: Randal Alejandre MD Erythrocyte distribution width (RBC) [Ratio] 13.0 % Normal 11.0-15.0 [facility] Comment on above: Performed By: #### 6 399, 809 #### [facility] [place] [address] Marketing And Promotions Manager: Randal Alejandre MD Hematocrit (Bld) [Volume fraction] 47.2 % Normal 38.5-50.0 [facility] Comment on above: Performed By: #### 6 399, 809 #### [facility] [place] [address] Marketing And Promotions Manager: Randal Alejandre MD Hemoglobin (Bld) [Mass/Vol] 15.2 g/dL Normal 13.2-17.1 [facility] Comment on above: Performed By: #### 6 399, 809 #### [facility] [place] [address] Marketing And Promotions Manager: Randal Alejandre MD Lymphocytes (Bld) [#/Vol] 0.918 10*3/uL Normal 850-3900 [facility] Comment on above: Performed By: #### 6 399, 809 #### [facility] [place] [address] Marketing And Promotions Manager: Randal Alejandre MD Lymphocytes/100 WBC (Bld) 16.1 % Normal [facility] Comment on above: Performed By: #### 6 399, 809 #### [facility] [place] [address] Marketing And Promotions Manager: Randal Alejandre MD MCH (RBC) [Entitic mass] 28.1 pg Normal 27.0-33.0 [facility] Comment on above: Performed By: #### 6 399, 809 #### [facility] [place] [address] Marketing And Promotions Manager: Randal Alejandre MD MCHC (RBC) [Mass/Vol] 32.2 [...] #### 6 399, 809 #### [facility] [place] [address] Marketing And Promotions Manager: Randal Alejandre MD MCV (RBC) [Entitic vol] 87.2 fL Normal 80.0-100.0 [facility] Comment on above: Performed By: #### 6 399, 809 #### [facility] [place] [address] Marketing And Promotions Manager: Randal Alejandre MD Monocytes (Bld) [#/Vol] 0.45 10*3/uL Normal 200-950 [facility] Comment on above: Performed By: #### 6 399, 809 #### [facility] [place] [address] Marketing And Promotions Manager: Randal Alejandre MD Monocytes/100 WBC (Bld) 7.9 % Normal [facility] Comment on above: Performed By: #### 6 399, 809 #### [facility] [place] [address] Marketing And Promotions Manager: Randal Alejandre MD Neutrophils (Bld) [#/Vol] 4.133 10*3/uL Normal 4893-0419 [facility] Comment on above: Performed By: #### 6 399, 809 #### [facility] [place] [address] Marketing And Promotions Manager: Randal Alejandre MD Neutrophils/100 WBC (Bld) 72.5 % Normal [facility] Comment on above: Performed By: #### 6 399, 809 #### [facility] [place] [address] Marketing And Promotions Manager: Randal Alejandre MD Platelet mean volume (Bld) [Entitic vol] 10.8 fL Normal 7.5-12.5 [facility] Comment on above: Performed By: #### 6 399, 809 #### [facility] [place] [address] Marketing And Promotions Manager: Randal Alejandre MD Platelets (Bld) [#/Vol] 176 10*3/uL Normal 140-400 [facility] Comment on above: Performed By: #### 6 399, 809 #### [facility] [place] [address] Marketing And Promotions Manager: Randal Alejandre MD RBC (Bld) [#/Vol] 5.41 10*6/uL Normal 4.20-5.80 [facility] Comment on above: Performed By: #### 6 399, 809 #### [facility] [address] [place] [address] Marketing And Promotions Manager: Randal Alejandre MD WBC (Bld) [#/Vol] 5.7 10*3/uL Normal 3.8-10.8 [facility] Comment on above: Performed By: #### 6 399, 809 #### [facility] [place] [address] Marketing And Promotions Manager: Randal Alejandre MD SED RATE BY PARAG Thomas 12-09-2024 SED RATE BY MODIFIED WESTERGREN 2 mm/h Normal < OR = 20 [facility] Comment on above: Performed By: #### 6 842, 809 #### [facility] [address] [facility], [address] [place] [address] Marketing And Promotions Manager: Randal Alejandre MD Blood type and Indirect anti body screen panel (Bld)on 11-18-2024 ABO and Rh group Nom (Bld) Blood group O Rh(D) positive [facility] Blood group antibody screen Ql Negative [facility] Specimen Expires 11/21/2024 23:59 EST [facility] INR Coag (PPP) [Relative johnny e]on 11-18-2024 Interpretation and review of laboratory results Normal [facility] PT Coag (PPP) [Time] 13.5 s [facility] During the induction phase of oral anticoagulation, the INR may not reflect the anticoagulation status of the patient. Therapeutic ranges for INR's are: Most clinical situations: INR 2.0-3.0 Mechanical Prosthetic Valve: INR 2.5-3.5 Critical: INR >5.0 [facility] OP NOTEon 11-18-2024 OP NOTE TAMRA GUZMAN [facility] [id number] DATE 11/18/2024 OPERATIVE REPORT SURGEON ANDREW [...] malfunctioned. He has been interrogated by a sales representative raw fibers from [employer] and noted to have multiple faults. Because [...] anchor boots that had been left previously. [place] boots were freed from anchor sutures, and [...] epidural scarring from the electrodes. Next, an Open English Penta lead passed without difficulty from caudad to cephalad (more content not included)... Normal [facility] PT/INRon 11-18-2024 INR Coag (PPP) [Relative time] 1 {INR} 0.8 - 1.1 [facility] INR Coag (PPP) [Relative time] 1.0 {INR} Normal 0.8-1.1 [facility] Comment on above: Order Comment: [facility] [place] [facility] has implemented the eGFR calculation approach that does not have a coefficient for race that conforms to the NKF-ASN Task Force Recommendations. Performed By: #### 4 6124 #### LAB [address] [place], [place] [address] Jeffrey Kohli M.D. [id number] PT Coag (PPP) [Time] 13.5 s Normal 11.8-14.3 [facility] Comment on above: Order Comment: [facility] [place] [facility] has implemented the eGFR calculation approach that does not have a coefficient for race that conforms to the NKF-ASN Task Force Recommendations. Performed By: #### 4 6194 #### LAB [address] [place], [place] [address] Jeffrey Kohli M.D. [id number] TYPE AND SCREENon 11-18-2024 TYPE AND SCREEN ABORH: O Positive AB SCREEN: Negative EXPIRATION DATE: 11/21/2024 23:59 EST Normal [facility] XR OR T-SPINE 2 VIEWSon XR [...] Please see operative report for further details. [employer] Workstation ID: [id number] Dictated by: SONAM SELF on FriNov 22, 2024 9:51:50 AM EST Transcribed by: MEAGAN URBAN on FriNov 22, 2024 10:50:51 AM EST Finalized by: SONAM SELF on FriNov 22, 2024 1:07:55 PM EST Normal [facility] Comment on above: Order Comment: [facility] [place] [facility] Services has implemented the eGFR calculation approach that does not have a coefficient for race that conforms to the NKF-ASN Task Force Recommendations. BASIC METABOLIC PANELon 10-13 Anion gap [Moles/Vol] 12 mmol/L Normal 10-20 [facility] Comment on above: Order Comment: [facility] [place] [facility] has implemented the eGFR calculation approach that does not have a coefficient for race that conforms to the NKF-ASN Task Force Recommendations. Performed By: #### 4 6124 #### LAB [address] [place], [place] [address] Jeffrey Kohli M.D. [id number] Calcium [Mass/Vol] 9.0 mg/dL Normal 8.4-10.2 [facility] Comment on above: Order Comment: [facility] [place] [facility] Services has implemented the eGFR calculation approach that does not have a coefficient for race that conforms to the NKF-ASN Task Force Recommendations. Performed By: #### 4 6124 #### LAB [address] [place], [place] [address] Jeffrey Kohli M.D. [id number] Chloride [Moles/Vol] 106 mmol/L Normal 98-108 [facility] Comment on above: Order Comment: [facility] [place] [facility] Services has implemented the eGFR calculation approach that does not have a coefficient for race that conforms to the NKF-ASN Task Force Recommendations. Performed By: #### 4 6124 #### [facility] LAB [address] [place] [address] Jeffrey Kohli M.D. [id number] Creatinine [Mass/Vol] 1.05 mg/dL Normal 0.80-1.30 [facility] Comment on above: Order Comment: [facility] [place] Laboratory [facility] has implemented the eGFR calculation approach that does not have a coefficient for race that conforms to the NKF-ASN Task Force Recommendations. Performed By: #### 4 6124 #### LAB [address] [place] [address] Jeffrey Kohli M.D. [id number] EGFR 76 mL/min/1.73 m2 Normal >=60 [facility] Comment on above: Order Comment: [facility] [place] Laboratory [facility] has implemented the eGFR calculation approach that does not have a coefficient for race that conforms to the NKF-ASN Task Force Recommendations. Result Comment: Katty mated GFR was calculated using the 2020 CKD-EPI creatinine equation. Performed By: #### 4 6124 #### [facility] [address] [place], [place] [address] Jeffrey Kohli M.D. [id number] Glucose [Mass/Vol] 84 mg/dL Normal 65-99 [facility] Comment on above: Order Comment: [facility] [place] [facility] Services has implemented the eGFR calculation approach that does not have a coefficient for race that conforms to the NKF-ASN Task Force Recommendations. Performed By: #### 4 6130 #### [facility] [address] [place] [id number] Jeffrey Kohli M.D. [id number] HCO3 (Bld) [Moles/Vol] 28 mmol/L Normal 21-32 [facility] Comment on above: Order Comment: [facility] [place] [facility] Services has implemented the eGFR calculation approach that does not have a coefficient for race that conforms to the NKF-ASN Task Force Recommendations. Performed By: #### 4 6124 #### LAB [address] [place] [address] Jeffrey Kohli M.D. [id number] Potassium [Moles/Vol] 4.6 mmol/L Normal 3.5-5.1 [facility] Comment on above: Order Comment: [facility] [place] Laboratory [facility] has implemented the eGFR calculation approach that does not have a coefficient for race that conforms to the NKF-ASN Task Force Recommendations. Performed By: #### 4 6124 #### LAB [address] [place] [address] Jeffrey Kohli M.D. [id number] Sodium [Moles/Vol] 141 mmol/L Normal 135-145 [facility] Comment on above: Order Comment: [facility] [place] Laboratory [facility] has implemented the eGFR calculation approach that does not have a coefficient for race that conforms to the NKF-ASN Task Force Recommendations. Performed By: #### 4 6124 #### LAB [address] [place] [address] Jeffrey Kohli M.D. [id number] Urea nitrogen [Mass/Vol] 16 mg/dL Normal 8-25 [facility] Comment on above: Order Comment: [facility] [place] Laboratory [facility] has implemented the eGFR calculation approach that does not have a coefficient for race that conforms to the NKF-ASN Task Force Recommendations. Performed By: #### 4 6124 #### LAB [address] [place] [address] Jeffrey Kohli M.D. [id number] Urea nitrogen/Creatinine [Mass ratio] 15.2 mg/mg Normal 10.0-20.0 [facility] Comment on above: Order Comment: [facility] [place] [facility] has implemented the eGFR calculation approach that does not have a coefficient for race that conforms to the NKF-ASN Task Force Recommendations. Performed By: #### 4 6124 #### LAB [address] [place] [address] Jeffrey Kohli M.D. [id number] CBCon 10-28-2024 AUTO NRBC 0.0 % Normal [facility] Comment on above: Performed By: #### 4 [id number] #### LAB [address] [address] Jeffrey Kohli M.D. [id number] AUTO NRBC ABS COUNT 0.00 K/mcL Normal 0.00-0.00 [facility] Comment on above: Performed By: #### 4 5218 #### LAB [address] [place] [address] Jeffrey Kohli M.D. [id number] Erythrocyte distribution width (RBC) [Ratio] 13.2 % Normal 11.6-14.8 [facility] Comment on above: Performed By: #### 4 5218 #### LAB [address] [place] [address] Jeffrey Kohli M.D. [id number] Hematocrit (Bld) [Volume fraction] 45.7 % Normal 41.0-53.0 [facility] Comment on above: Performed By: #### 4 5218 #### LAB [address] [place] [address] Jeffrey Kohli M.D. [id number] Hemoglobin (Bld) [Mass/Vol] 14.6 g/dL Normal 13.5-17.5 [facility] Comment on above: Performed By: #### 4 5218 #### LAB [address] [place] [address] Jeffrey Kohli M.D. [id number] MCH (RBC) [Entitic mass] 27.9 pg Normal 26.0-34.0 [facility] Comment on above: Performed By: #### 4 5218 #### LAB [address] [place] [address] Jeffrey Kohli M.D. [id number] MCV (RBC) [Entitic vol] 87.4 fL Normal 80.0-100.0 [facility] Comment on above: Performed By: #### 4 5218 #### LAB [address] [place] [address] Jeffrey Kohli M.D. [id number] MEAN CORPUSCULAR HEMOGLOBIN CONC 31.9 g/dL Normal 31.0-37.0 [facility] Comment on above: Performed By: #### 4 [id number] #### LAB [address] [address] Jeffrey Kohli M.D. [id number] Platelet mean volume (Bld) [Entitic vol] 10.2 fL Normal 9.4-12.4 [facility] Comment on above: Performed By: #### 4 5218 #### LAB [address] [place] [address] Jeffrey Kohli M.D. [id number] Platelets (Bld) [#/Vol] 150 10*3/uL Normal 150-400 [facility] Comment on above: Performed By: #### 4 5218 #### LAB [address] [place] [address] Jeffrey Kohli M.D. [id number] RBC (Bld) [#/Vol] 5.23 10*6/uL Normal 4.50-5.90 [facility] Comment on above: Performed By: #### 4 5218 #### LAB [address] [place] [address] Jeffrey Kohli M.D. [id number] WBC (Bld) [#/Vol] 5.13 10*3/uL Normal 4.50-11.00 [facility] Comment on above: Performed By: #### 4 5218 #### LAB [address] [address] Jeffrey Kohli M.D. [id number] MRSA CULTURE/SCREENon 2024 MRSA CULTURE/SCREEN MRSA CULTURE No Methicillin Resistant Staphylococcus (MRSA) Isolated Normal [facility] Comment on above: Performed By: #### 4 4185 #### [facility] [place] [address] Vishal Morrell M.D. [id number] TYPE AND SCREENon 10-28-2024 TYPE AND SCREEN ABORH: O Positive AB SCREEN: Negative EXPIRATION DATE: 11/18/2024 23:59 EST Normal [facility] XR CHEST AP/PA AND LATon XR [...] FriOct 28, 2024 4:39:10 PM EST Normal [facility] Comment on above: Order Comment: Injur y/Trauma or Illness?:Illness/Other How long have you had these symptoms (acute/chronic)?:Acute Reason for exam?:pre-op History of cancer?:. Surgeries, chemotherapy, or radiation?:. Type of Exam?:Initial Additional signs and symptoms?:. Spine Thoracic without Contr ason 10-05-2024 Spine Thoracic without Contras [facility] Imaging Services [address] [place] [address] Spine Thoracic without Contras MR#: [id number] Acct: [id number] Name: MEGANTAMRA BLAZE Rep #: [id number] : 1955 M 69 From: Haider Beatty MD PCP: Dr. Mike Aburto MD Status: REG CLI Study: Spine Thoracic without Contras Date of Exam: 12/06/23 Exam# [id number] Ordering Dr: Ahmet Frances PA-C [id number] INDICATION: mid-back pain, neuro deficit EXAMINATION: CT [...] 0:43 EST Reading Location ID and State: [facility] / [place] Tel , Service support , CC: CHANDNI Frances; Dr. Mike Aburto MD [employer] Worker: Signed Normal [facility] Spine Lumbar without Contras ton 09-03-2024 Spine Lumbar without Contrast [facility] Imaging Services [address] [place] [address] Spine Lumbar without Contrast MR#: [id number] Acct: [id number] Name: TAMRA GUZMAN Rep #: [id number] : 1955 M 69 From: Peter garay DO PCP: Dr. Mike Aburto MD Status: REG CLI Study: Spine Lumbar without Contrast Date of Exam: Exam# [id number] Ordering Dr: Mike Aburto MD [id number] EXAM: CT LUMBAR SPINE WITHOUT INTRAVENOUS CONTRAST [...] FINDINGS: VERTEBRAE: Multilevel facet and endplate osteophytosis. Hood left lower thoracic and apex right lumbar spinal curvatures are present. Degenerative anterolisthesis, grade 1 at L4-L5. No fracture. No discrete lytic or blastic abnormality. DISCS/SPINAL CANAL/NEURAL FORAMINA: Mild to moderate multilevel lumbar spinal canal stenosis and [id number] multilevel lumbar neural foraminal narrowing, perhaps severe [...] staggered at the level of T7. 3. Hood left lower thoracic and apex right lumbar spinal curvatures are present. 4. Bilateral nonobstructive nephrolithiasis. Electronically Signed: Peter Estrella DO at 11:41 EST , CC: Dr. Mike Aburto MD [employer] Worker: Signed Normal [facility] CBC W/Diff, Automatedon 08-13 Absolute Lymph 0.97 X10 3/uL Normal 0.83-4.51 [facility] Comment on above: Performed By: #### L 501.9520, L500.4050, L506.1000, L100.0100 #### [facility] Laboratory [address] [place], [address] Absolute Neut 4.6 X10 3/uL Normal 2.0-7.7 [facility] Comment on above: Performed By: #### L 501.9520, L500.4050, L506.1000, L100.0100 #### [facility] Laboratory [address] [place], [address] Basophils/100 WBC (Bld) 0.5 % Normal 0-1 [facility] Comment on above: Performed By: #### L 501.9520, L500.4050, L506.1000, L100.0100 #### [facility] Laboratory [address] [place], [address] Eosinophils/100 WBC (Bld) 3.9 % Normal 0-5 [facility] Comment on above: Performed By: #### L 501.9520, L500.4050, L506.1000, L100.0100 #### [facility] Laboratory [address] [place], [address] Erythrocyte distribution width (RBC) [Ratio] 13.0 % Normal 11.6-14.6 [facility] Comment on above: Performed By: #### L 501.9520, L500.4050, L506.1000, L100.0100 #### [facility] Laboratory [address] [place], [address] Hematocrit (Bld) [Volume fraction] 45.0 % Normal 40-54 [facility] Comment on above: Performed By: #### L 501.9520, L500.4050, L506.1000, L100.0100 #### [facility] Laboratory [address] [place], [address] Hemoglobin (Bld) [Mass/Vol] 14.3 g/dL Normal 13.0-16.5 [facility] Comment on above: Performed By: #### L 501.9520, L500.4050, L506.1000, L100.0100 #### [facility] [address] [place], [address] IG% 0.300 Normal 0.0-0.9 [facility] Comment on above: Result Comment: IG% - Immature Granulocytes (promyelocytes, myelocytes and metamyelocytes) > 1% indicates that a LEFT SHIFT is Present. Performed By: #### L 501.9520, L500.4050, L506.1000, L100.0100 #### [facility] Laboratory [address] [place], [address] Lymphocytes/100 WBC (Bld) 15.1 % Low 19-41 [facility] Comment on above: Performed By: #### L 501.9520, L500.4050, L506.1000, L100.0100 #### [facility] [address] [place], [address] MCH (RBC) [Entitic mass] 27.7 pg Normal 27.0-32.0 [facility] Comment on above: Performed By: #### L 501.9520, L500.4050, L506.1000, L100.0100 #### [facility] Laboratory [address] [place], [address] MCHC (RBC) [Mass/Vol] 31.8 g/dL Low 32-36 [facility] Comment on above: Performed By: #### L 501.9520, L500.4050, L506.1000, L100.0100 #### [facility] Laboratory [address], [address] MCV (RBC) [Entitic vol] 87.0 fL Normal 80-94 [facility] Comment on above: Performed By: #### L 501.9520, L500.4050, L506.1000, L100.0100 #### [facility] [address] [place], [address] Monocytes/100 WBC (Bld) 9.0 % Normal 0-10 [facility] Comment on above: Performed By: #### L 501.9520, L500.4050, L506.1000, L100.0100 #### [facility] Laboratory [address] [place], [address] Neutrophils/100 WBC (Bld) 71.2 % High 47-70 [facility] Comment on above: Performed By: #### L 501.9520, L500.4050, L506.1000, L100.0100 #### [facility] Laboratory [address] [place], [address] Nucleated RBC (Bld) [#/Vol] 0 10*3/uL Normal 0-5 [facility] Comment on above: Performed By: #### L 501.9520, L500.4050, L506.1000, L100.0100 #### [facility] [address] [place], [address] Platelet mean volume (Bld) [Entitic vol] 10.1 fL Normal 6.2-12.0 [facility] Comment on above: Performed By: #### L 501.9520, L500.4050, L506.1000, L100.0100 #### [facility] Laboratory [address] [place], [address] Platelets (Bld) [#/Vol] 161 10*3/uL Normal 150-450 [facility] Comment on above: Performed By: #### L 501.9520, L500.4050, L506.1000, L100.0100 #### [facility] [address] [place], [address] RBC (Bld) [#/Vol] 5.17 10*6/uL Normal 4.6-6.2 [facility] Comment on above: Performed By: #### L 501.9520, L500.4050, L506.1000, L100.0100 #### [facility] [address] [place], [address] RDW SD 41.4 fl Normal 35.1-43.9 [facility] Comment on above: Performed By: #### L 501.9520, L500.4050, L506.1000, L100.0100 #### [facility] Laboratory [address] [place], [address] WBC (Bld) [#/Vol] 6.4 10*3/uL Normal 4.4-11.0 [facility] Comment on above: Performed By: #### L 501.9520, L500.4050, L506.1000, L100.0100 #### [facility] Laboratory [address] [place], [address] Comprehensive Metabolic Prof [facility] 08-23-2024 Albumin [Mass/Vol] 3.6 g/dL Normal 3.2-5.0 [facility] Comment on above: Performed By: #### L 501.9520, L500.4050, L506.1000, L100.0100 #### [facility] [address] [place], [address] Albumin/Globulin [Mass ratio] 1.3 {ratio} Normal 0.9-2.4 [facility] Comment on above: Performed By: #### L 501.9520, L500.4050, L506.1000, L100.0100 #### [facility] Laboratory [address] [place], [address] ALK P 92 U/L Normal 45-117 [facility] Comment on above: Performed By: #### L 501.9520, L500.4050, L506.1000, L100.0100 #### [facility] Laboratory [address] [place], [address] ALT [Catalytic activity/Vol] 29 U/L Normal 16-61 [facility] Comment on above: Performed By: #### L 501.9520, L500.4050, L506.1000, L100.0100 #### [facility] [address] [place], [address] AST [Catalytic activity/Vol] 31 U/L Normal 15-37 [facility] Comment on above: Performed By: #### L 501.9520, L500.4050, L506.1000, L100.0100 #### [facility] Laboratory [address] [place], [address] Bilirubin [Mass/Vol] 0.80 mg/dL Normal 0.20-1.00 [facility] Comment on above: Result Comment: For patients on eltrombopag therapy, use of Dimension [place] TBIL is not recommended. Performed By: #### L 501.9520, L500.4050, L506.1000, L100.0100 #### [facility] [address] [place], [address] BUN/CRE 15.6 RATIO Normal 10-20 [facility] Comment on above: Performed By: #### L 501.9520, L500.4050, L506.1000, L100.0100 #### [facility] [address] [place], [address] CA,Total 9.0 mg/dL Normal 8.5-10.1 [facility] Comment on above: Performed By: #### L 501.9520, L500.4050, L506.1000, L100.0100 #### [facility] [address] [place], [address] Chloride [Moles/Vol] 108 mmol/L High 98-107 [facility] Comment on above: Performed By: #### L 501.9520, L500.4050, L506.1000, L100.0100 #### [facility] [address] [place], [address] CO2 [Moles/Vol] 31.0 mmol/L Normal 21.0-32.0 [facility] Comment on above: Performed By: #### L 501.9520, L500.4050, L506.1000, L100.0100 #### [facility] [address] [place], [address] Creatinine [Mass/Vol] 1.09 mg/dL Normal 0.70-1.30 [facility] Comment on above: Result Comment: The validity of the calculated GFR GFRAA in patients over 70 years has not been determined. Clinical correlation is essential. Performed By: #### L 501.9520, L500.4050, L506.1000, L100.0100 #### [facility] [address] [place], [address] EST GFR - AA 86 mL/min Normal >60 [facility] Comment on above: Result Comment: Afri can Macanese GFR Calc Performed By: #### L 501.9520, L500.4050, L506.1000, L100.0100 #### [facility] [address] [place], [address] GAP 3 Low 5-15 [facility] Comment on above: Performed By: #### L 501.9520, L500.4050, L506.1000, L100.0100 #### [facility] [address] [place], [address] GFR/1.73 sq M.predicted among non-blacks MDRD (S/P/Bld) [Vol rate/Area] 71 mL/min/{1.73_m2} Normal >60 [facility] Comment on above: Result Comment: Non- GFR Calc Performed By: #### L 501.9520, L500.4050, L506.1000, L100.0100 #### [facility] [address] [place], [address] Globulin (S) [Mass/Vol] 2.8 g/dL Normal 2.2-4.2 [facility] Comment on above: Performed By: #### L 501.9520, L500.4050, L506.1000, L100.0100 #### [facility] [address] [place], [address] Glucose [Mass/Vol] 84 mg/dL Normal 74-106 [facility] Comment on above: Performed By: #### L 501.9520, L500.4050, L506.1000, L100.0100 #### [facility] [address] [place], [address] Potassium [Moles/Vol] 4.3 mmol/L Normal 3.5-5.1 [facility] Comment on above: Performed By: #### L 501.9520, L500.4050, L506.1000, L100.0100 #### [facility] [address] [place], [address] Sodium [Moles/Vol] 142 mmol/L Normal 136-145 [facility] Comment on above: Performed By: #### L 501.9520, L500.4050, L506.1000, L100.0100 #### [facility] [address] [place], [address] T PROT 6.4 g/dL Normal 6.4-8.2 [facility] Comment on above: Performed By: #### L 501.9520, L500.4050, L506.1000, L100.0100 #### [facility] [address] [place], [address] Urea nitrogen [Mass/Vol] 17 mg/dL Normal 7-18 [facility] Comment on above: Performed By: #### L 501.9520, L500.4050, L506.1000, L100.0100 #### [facility] [address] [place], [address] Thyroid Stim Hormone (TSH)on 08-23-2024 TSH 1.040 uIU/mL Normal 0.358-3.74 0 [facility] Comment on above: Performed By: #### L 501.9520, L500.4050, L506.1000, L100.0100 ####[facility] [address] [place], [address] Vitamin D,25 Hydroxyon 08-23 Vitamin D 25-OH 31.3 ng/mL Normal [facility] Comment on above: Result Comment: Felecia min D 25(OH) Status Range Deficiency <20 ng/mL (50nmol/L) Insufficiency 20 - 30 ng/mL (50 - 75 nmol/L) Sufficiency 30 - 100 ng/mL (75 - 250 nmol/L) Toxicity >100 ng/mL (>250 nmol/L) Performed By: #### L 501.9520, L500.4050, L506.1000, L100.0100 #### [facility] Laboratory [address] [place], [address] Venous Duplex US, Unilateral on 08-04-2024 Venous Duplex US, Unilateral [facility] [address] [place] [address] Venous Duplex US, Unilateral 08/04/24 1309 MR#: [id number] Acct: [id number] Name: TAMRA GUZMAN Rep #: [id number] : 1955 69 From: Peng Ballesteros MD [...] Dictated: 08/04/24 1309 Date Transcribed: 08/04/24 1530 [employer] Worker: Signed Normal [facility] CBC W/Diff, Automatedon 07-13 Absolute Lymph 1.05 X10 3/uL Normal 0.83-4.51 [facility] Comment on above: Order Comment: PLEAS E FAX TO [id number] Performed By: #### L 100.0100 #### [facility] Laboratory [address] [place], [address] Absolute Neut 3.0 X10 3/uL Normal 2.0-7.7 [facility] Comment on above: Order Comment: PLEAS E FAX TO [id number] Performed By: #### L 100.0100 #### [facility] Laboratory [address] [place], [address] Basophils/100 WBC (Bld) 0.6 % Normal 0-1 [facility] Comment on above: Order Comment: PLEAS E FAX TO [id number] Performed By: #### L 100.0100 #### [facility] Laboratory [address] [place], [address] Eosinophils/100 WBC (Bld) 3.8 % Normal 0-5 [facility] Comment on above: Order Comment: PLEAS E FAX TO [id number] Performed By: #### L 100.0100 #### [facility] Laboratory [address] [place], [address] Erythrocyte distribution width (RBC) [Ratio] 12.9 % Normal 11.6-14.6 [facility] Comment on above: Order Comment: PLEAS E FAX TO [id number] Performed By: #### L 100.0100 #### [facility] Laboratory [address] [place], [address] Hematocrit (Bld) [Volume fraction] 44.7 % Normal 40-54 [facility] Comment on above: Order Comment: PLEAS E FAX TO [id number] Performed By: #### L 100.0100 #### [facility] Laboratory [address] [place], [address] Hemoglobin (Bld) [Mass/Vol] 14.3 g/dL Normal 13.0-16.5 [facility] Comment on above: Order Comment: PLEAS E FAX TO [id number] Performed By: #### L 100.0100 #### [facility] [address] [place], [address] IG% 0.200 Normal 0.0-0.9 [facility] Comment on above: Order Comment: PLEAS E FAX TO [id number] Result Comment: IG% - Immature Granulocytes (promyelocytes, myelocytes and metamyelocytes) > 1% indicates that a LEFT SHIFT is Present. Performed By: #### L 100.0100 #### [facility] [address] [place], [address] Lymphocytes/100 WBC (Bld) 22.4 % Normal 19-41 [facility] Comment on above: Order Comment: PLEAS E FAX TO [id number] Performed By: #### L 100.0100 #### [facility] [address] [place], [address] MCH (RBC) [Entitic mass] 27.9 pg Normal 27.0-32.0 [facility] Comment on above: Order Comment: PLEAS E FAX TO [id number] Performed By: #### L 100.0100 #### [facility] Laboratory [address] [place], [address] MCHC (RBC) [Mass/Vol] 32.0 g/dL Normal 32-36 [facility] Comment on above: Order Comment: PLEAS E FAX TO [id number] Performed By: #### L 100.0100 #### [facility] [address] [place], [address] MCV (RBC) [Entitic vol] 87.1 fL Normal 80-94 [facility] Comment on above: Order Comment: PLEAS E FAX TO [id number] Performed By: #### L 100.0100 #### [facility] [address] [place], [address] Monocytes/100 WBC (Bld) 9.6 % Normal 0-10 [facility] Comment on above: Order Comment: PLEAS E FAX TO [id number] Performed By: #### L 100.0100 #### [facility] [address] [place], [address] Neutrophils/100 WBC (Bld) 63.4 % Normal 47-70 [facility] Comment on above: Order Comment: PLEAS E FAX TO [id number] Performed By: #### L 100.0100 #### [facility] [address] [place], [address] Nucleated RBC (Bld) [#/Vol] 0 10*3/uL Normal 0-5 [facility] Comment on above: Order Comment: PLEAS E FAX TO [id number] Performed By: #### L 100.0100 #### [facility] [address] [place], [address] Platelet mean volume (Bld) [Entitic vol] 9.9 fL Normal 6.2-12.0 [facility] Comment on above: Order Comment: PLEAS E FAX TO [id number] Performed By: #### L 100.0100 #### [facility] [address] [place], [address] Platelets (Bld) [#/Vol] 132 10*3/uL Low 150-450 [facility] Comment on above: Order Comment: PLEAS E FAX TO [phone] Performed By: #### L 100.0100 #### [facility] [address] [place], [address] RBC (Bld) [#/Vol] 5.13 10*6/uL Normal 4.6-6.2 [facility] Comment on above: Order Comment: PLEAS E FAX TO [phone] Performed By: #### L 100.0100 #### [facility] [address] [place], [address] RDW SD 40.8 fl Normal 35.1-43.9 [facility] Comment on above: Order Comment: PLEAS E FAX TO [phone] Performed By: #### L 100.0100 #### [facility] [address] [place], [address] WBC (Bld) [#/Vol] 4.7 10*3/uL Normal 4.4-11.0 [facility] Comment on above: Order Comment: PLEAS E FAX TO [phone] Performed By: #### L 100.0100 #### [facility] [address] [place], [address] CBC W/Diff, Automatedon 06-13-2023 Absolute Lymph 1.17 X10 3/uL Normal 0.83-4.51 [facility] Comment on above: Order Comment: LIVER LIPID FOR DR PRECIADO CBCD FOR DR VARMA Performed By: #### L 500.3400, L500.4100, L100.0100 #### [facility] [address] [place], [address] Absolute Neut 2.6 X10 3/uL Normal 2.0-7.7 [facility] Comment on above: Order Comment: LIVER LIPID FOR DR PRECIADO CBCD FOR DR VARMA Performed By: #### L 500.3400, L500.4100, L100.0100 #### [facility] [address] [place], [address] Basophils/100 WBC (Bld) 0.9 % Normal 0-1 [facility] Comment on above: Order Comment: LIVER LIPID FOR DR PRECIADO CBCD FOR DR VARMA Performed By: #### L 500.3400, L500.4100, L100.0100 #### [facility] [address] [place], [address] Eosinophils/100 WBC (Bld) 3.0 % Normal 0-5 [facility] Comment on above: Order Comment: LIVER LIPID FOR DR PRECIADO CBCD FOR DR VARMA Performed By: #### L 500.3400, L500.4100, L100.0100 #### [facility] [address], [address] Erythrocyte distribution width (RBC) [Ratio] 13.2 % Normal 11.6-14.6 [facility] Comment on above: Order Comment: LIVER LIPID FOR DR PRECIADO CBCD FOR DR VARMA Performed By: #### L 500.3400, L500.4100, L100.0100 #### [facility] [address] [place], [address] Hematocrit (Bld) [Volume fraction] 41.9 % Normal 40-54 [facility] Comment on above: Order Comment: LIVER LIPID FOR DR PRECIADO CBCD FOR DR VARMA Performed By: #### L 500.3400, L500.4100, L100.0100 #### [facility] [address] [place], [address] Hemoglobin (Bld) [Mass/Vol] 13.5 g/dL Normal 13.0-16.5 [facility] Comment on above: Order Comment: LIVER LIPID FOR DR PRECIADO CBCD FOR DR VARMA Performed By: #### L 500.3400, L500.4100, L100.0100 #### [facility] [address] [place], [address] IG% 0.200 Normal 0.0-0.9 [facility] Comment on above: Order Comment: LIVER LIPID FOR DR PRECIADO CBCD FOR DR VARMA Result Comment: IG% - Immature Granulocytes (promyelocytes, myelocytes and metamyelocytes) > 1% indicates that a LEFT SHIFT is Present. Performed By: #### L 500.3400, L500.4100, L100.0100 #### [facility] [address] [place], [address] Lymphocytes/100 WBC (Bld) 26.8 % Normal 19-41 [facility] Comment on above: Order Comment: LIVER LIPID FOR DR PRECIADO CBCD FOR DR VARMA Performed By: #### L 500.3400, L500.4100, L100.0100 #### [facility] [address] [place], [address] MCH (RBC) [Entitic mass] 28.2 pg Normal 27.0-32.0 [facility] Comment on above: Order Comment: LIVER LIPID FOR DR PRECIADO CBCD FOR DR VARMA Performed By: #### L 500.3400, L500.4100, L100.0100 #### [facility] [address] [place], [address] MCHC (RBC) [Mass/Vol] 32.2 g/dL Normal 32-36 [facility] Comment on above: Order Comment: LIVER LIPID FOR DR PRECIADO CBCD FOR DR VARMA Performed By: #### L 500.3400, L500.4100, L100.0100 #### [facility] [address] [place], [address] MCV (RBC) [Entitic vol] 87.5 fL Normal 80-94 [facility] Comment on above: Order Comment: LIVER LIPID FOR DR PRECIADO CBCD FOR DR VARMA Performed By: #### L 500.3400, L500.4100, L100.0100 #### [facility] [address] [place], [address] Monocytes/100 WBC (Bld) 9.9 % Normal 0-10 [facility] Comment on above: Order Comment: LIVER LIPID FOR DR PRECIADO CBCD FOR DR VARMA Performed By: #### L 500.3400, L500.4100, L100.0100 #### [facility] [address] [place], [address] Neutrophils/100 WBC (Bld) 59.2 % Normal 47-70 [facility] Comment on above: Order Comment: LIVER LIPID FOR DR PRECIADO CBCD FOR DR VARMA Performed By: #### L 500.3400, L500.4100, L100.0100 #### [facility] [address] [place], [address] Nucleated RBC (Bld) [#/Vol] 0 10*3/uL Normal 0-5 [facility] Comment on above: Order Comment: LIVER LIPID FOR DR PRECIADO CBCD FOR DR VARMA Performed By: #### L 500.3400, L500.4100, L100.0100 #### [facility] [address] [place], [address] Platelet mean volume (Bld) [Entitic vol] 10.5 fL Normal 6.2-12.0 [facility] Comment on above: Order Comment: LIVER LIPID FOR DR PRECIADO CBCD FOR DR VARMA Performed By: #### L 500.3400, L500.4100, L100.0100 #### [facility] [address] [place], [address] Platelets (Bld) [#/Vol] 110 10*3/uL Low 150-450 [facility] Comment on above: Order Comment: LIVER LIPID FOR DR PRECIADO CBCD FOR DR VARMA Performed By: #### L 500.3400, L500.4100, L100.0100 #### [facility] [address] [place], [address] RBC (Bld) [#/Vol] 4.79 10*6/uL Normal 4.6-6.2 [facility] Comment on above: Order Comment: LIVER LIPID FOR DR PRECIADO CBCD FOR DR VARMA Performed By: #### L 500.3400, L500.4100, L100.0100 #### [facility] [address] [place], [address] RDW SD 42.7 fl Normal 35.1-43.9 [facility] Comment on above: Order Comment: LIVER LIPID FOR DR PRECIADO CBCD FOR DR VARMA Performed By: #### L 500.3400, L500.4100, L100.0100 #### [facility] [address] [place], [address] WBC (Bld) [#/Vol] 4.4 10*3/uL Normal 4.4-11.0 [facility] Comment on above: Order Comment: LIVER LIPID FOR DR PRECIADO CBCD FOR DR VARMA Performed By: #### L 500.3400, L500.4100, L100.0100 #### [facility] [address] [place], [address] Lipid Profileon 06-23-2024 Cholesterol [Mass/Vol] 124 mg/dL Normal 200 [facility] Comment on above: Order Comment: LIVER LIPID FOR DR PRECIADO CBCD FOR DR VARMA Result Comment: <200 mg/dL Desirable 200-240 mg/dL Borderline >240 mg/dL High Risk Performed By: #### L 500.3400, L500.4100, L100.0100 #### [facility] [address] [place], [address] Cholesterol in HDL [Mass/Vol] 75 mg/dL Normal [facility] Comment on above: Order Comment: LIVER LIPID FOR DR PRECIADO CBCD FOR DR VARMA Result Comment: The drugs N-Acetylcysteine and Metamizole may falsely depress this assay. Reference Range HDL <40 mg/dL Low HDL Cholesterol HDL >or= 60 mg/dL High HDL Cholesterol Performed By: #### L 500.3400, L500.4100, L100.0100 #### [facility] [address] [place], [address] Cholesterol in LDL [Mass/Vol] 41 mg/dL Normal 0-130 [facility] Comment on above: Order Comment: LIVER LIPID FOR DR PRECIADO CBCD FOR DR VARMA Performed By: #### L 500.3400, L500.4100, L100.0100 #### [facility] [address] [place], [address] Cholesterol in VLDL [Mass/Vol] 8 mg/dL Normal 5-40 [facility] Comment on above: Order Comment: LIVER LIPID FOR DR PRECIADO CBCD FOR DR VARMA Performed By: #### L 500.3400, L500.4100, L100.0100 #### [facility] [address], [address] Triglyceride [Mass/Vol] 39 mg/dL Normal [facility] Comment on above: Order Comment: LIVER LIPID FOR DR PRECIADO CBCD FOR DR VARMA Result Comment: The drugs N-Acetylcysteine and Metamizole may falsely depress this assay. Serum Triglycerides Reference Interval Normal <150 mg/dL Borderline high 150 - 199 mg/dL High 200 - 499 mg/dL Very High > or = 500 mg/dL Performed By: #### L 500.3400, L500.4100, L100.0100 #### [facility] [address] [place], [address] Liver Profileon 06-23-2024 Albumin [Mass/Vol] 3.2 g/dL Normal 3.2-5.0 [facility] Comment on above: Order Comment: LIVER LIPID FOR DR PRECIADO CBCD FOR DR VARMA Performed By: #### L 500.3400, L500.4100, L100.0100 #### [facility] [address] [place], [address] ALK P 79 U/L Normal 45-117 [facility] Comment on above: Order Comment: LIVER LIPID FOR DR PRECIADO CBCD FOR DR VARMA Performed By: #### L 500.3400, L500.4100, L100.0100 #### [facility] [address] [place], [address] ALT [Catalytic activity/Vol] 21 U/L Normal 16-61 [facility] Comment on above: Order Comment: LIVER LIPID FOR DR PRECIADO CBCD FOR DR VARMA Performed By: #### L 500.3400, L500.4100, L100.0100 #### [facility] [address] [place], [address] AST [Catalytic activity/Vol] 26 U/L Normal 15-37 [facility] Comment on above: Order Comment: LIVER LIPID FOR DR PRECIADO CBCD FOR DR VARMA Performed By: #### L 500.3400, L500.4100, L100.0100 #### [facility] [address] [place], [address] Bilirubin [Mass/Vol] 0.60 mg/dL Normal 0.20-1.00 [facility] Comment on above: Order Comment: LIVER LIPID FOR DR PRECIADO CBCD FOR DR VARMA Result Comment: For patients on eltrombopag therapy, use of Dimension [place] TBIL is not recommended. Performed By: #### L 500.3400, L500.4100, L100.0100 #### [facility] [address] [place], [address] Bilirubin.direct [Mass/Vol] 0.24 mg/dL Normal 0.00-0.30 [facility] Comment on above: Order Comment: LIVER LIPID FOR DR PRECIADO CBCD FOR DR VARMA Performed By: #### L 500.3400, L500.4100, L100.0100 #### [facility] [address] [place], [address] Globulin (S) [Mass/Vol] 2.7 g/dL Normal 2.2-4.2 [facility] Comment on above: Order Comment: LIVER LIPID FOR DR PRECIADO CBCD FOR DR VARMA Performed By: #### L 500.3400, L500.4100, L100.0100 #### [facility] [address] [place], [address] T PROT 5.9 g/dL Low 6.4-8.2 [facility] Comment on above: Order Comment: LIVER LIPID FOR DR PRECIADO CBCD FOR DR VARMA Performed By: #### L 500.3400, L500.4100, L100.0100 #### [facility] [address] [place], [address] Basophil percentageOrdered B y: Rogelio Preciado on 11-26-2023 Bilirubin [Mass/Vol] 0.70 mg/dL 0.20-1.00 [facility] Comment on above: For patients on eltr ombopag therapy, use of Dimension [place] TBIL is not recommended. Cholesterol [Mass/Vol] 146 mg/dL <200 [facility] Comment on above: <200 mg/dL Desirable 200-240 mg/dL Borderline >240 mg/dL High Risk Protein [Mass/Vol] 6.4 g/dL 6.4-8.2 [facility] Triglyceride [Mass/Vol] 55 mg/dL <199 [facility] Comment on above: The drugs N-Acetylcy steine and Metamizole may falsely depress this assay.Serum Triglycerides Reference Interval Normal <150 mg/dL Borderline high 150 - 199 mg/dL High 200 - 499 mg/dL Very High > or = 500 mg/dL Direct bilirubinOrdered By: Rogelio Preciado on 11-26-2023 Bilirubin.direct [Mass/Vol] 0.21 mg/dL 0.00-0.30 [facility] - Chemistry and C hemistry - challengeOrdered By: Rogelio Preciado on 11-26-2023 ALP [Catalytic activity/Vol] 96 U/L 45-117 [facility] ALT [Catalytic activity/Vol] 20 U/L 16-61 [facility] Cholesterol in HDL [Mass/Vol] 66 mg/dL >40 [facility] Comment on above: The drugs N-Acetylcy steine and Metamizole may falsely depress this assay. Reference Range HDL <40 mg/dL Low HDL Cholesterol HDL >or= 60 mg/dL High HDL Cholesterol Cholesterol in LDL [Mass/Vol] 69 mg/dL 0-130 [facility] Globulin (S) [Mass/Vol] 3.1 g/dL 2.2-4.2 [facility] No Panel InformationOrdered By: Rogelio Preciado on 11-26-2023 VLDL Cholesterol 11 mg/dL 5-40 [facility] Thin prep Papanicolaou smear with manual screeningOrdered By: Rogelio Preciado on 11-26-2023 Thin prep Papanicolaou smear with manual screening 3.3 g/dL 3.2-5.0 [facility] Thin prep Papanicolaou smear with manual screening 23 U/L 15-37 [facility] No Panel InformationOrdered By: Mike Aburto on 11-06-2023 Miscellaneous Test See comment [facility] Comment on above: TEST RESULTS LIMITS APOE Alzheimer's RiskMethodology: Patient DNA is assayed for the APOE genotype by PCRamplification of a specific region in exon 4 of the APOEgene followed by digestion with restriction enzyme Data Programmer Iand separation of fragments by polyacrylamide gelelectrophoresis. This approach allows the APOE E2, E3, andE4 alleles to be distinguished. Analytical sensitivity andspecificity are >99.5%. Individuals are interpreted ashaving one of the following genotypes: E2/E2, E3/E3, E4/E4,E2/E3, E2/E4, E3/E4.APO E Genotyping Result: E3/A2Vrtumhmkycybnb: Negative for the APOE4 variant that is [...] can be familial (15-20%) or sporadic. The [id number] increases the risk for late onset AD and maycontribute to the pathology of the disease. This risk isincreased by approximately 2 to 3-fold for individuals withone copy of the APOE4 variant and by approximately [id number] for individuals with two copies of this [...] with late onset AD, the presence of ECUR3bul lead to earlier development of symptoms.However, APOE4 [...] was developed and its performance characteristicsdetermined by [employer]. It has not been cleared or approvedby the Food and Drug Administration. The FDA has determinedthat such clearance or approval is not necessary.REFERENCESAltmann A et al. Sex modifies the APOE-related risk ofdeveloping Alzheimer disease. Annal Nqervw5117;75(4):563-573Bird TD. Alzheimer Disease Overview. HaileyStamp.itbuddy([employer]). Davonte CARVER et al., editors. [facility], [place], [place]. Last revised 2014.Kenia ZAVALETA et al. Genetic counseling and testing forAlzheimer disease: Joint practice guidelines of theMac[employer] College of [employer] Genetics and the [facility]. Ashley in [id number];[phone].Mitch GREEN. Apolipoprotein E: Implications for ADneurobiology, epidemiology and risk assessment.Neurobiology of Aging 2011;32:778-790 TESTING PERFORMED AT [facility]. ORIGINAL REPORT ON FILE IN LAB CONTAINS ADDITIONAL TEST SITE INFORMATION. Absolute lymphocyte countOrd ered By: Mitra Martinez on 11-03-2023 Lymphocytes Auto (Unsp spec) [#/Vol] 1.07 10*3/uL 0.83-4.51 [facility] Automated lymphocyte count a s percentage of total leukocytesOrdered By: Mitra Martinez on 11-03-2023 Lymphocytes/100 WBC Auto (Unsp spec) 18.1 % 19-41 [facility] Basophil percentageOrdered B y: Mitra Martinez on 11-03-2023 Basophils/100 WBC (Bld) 0.2 % 0-1 [facility] Bilirubin [Mass/Vol] 0.80 mg/dL 0.20-1.00 [facility] Comment on above: For patients on eltr ombopag therapy, use of Dimension [place] TBIL is not recommended. Chloride [Moles/Vol] 109 mmol/L 98-107 [facility] Eosinophils/100 WBC (Bld) 1.7 % 0-5 [facility] Glucose [Mass/Vol] 94 mg/dL 74-106 [facility] Hemoglobin (Bld) [Mass/Vol] 14.3 g/dL 13.0-16.5 [facility] Monocytes/100 WBC (Bld) 6.1 % 0-10 [facility] Neutrophils (Bld) [#/Vol] 4.4 10*3/uL 2.0-7.7 [facility] Neutrophils/100 WBC (Bld) 73.7 % 47-70 [facility] Potassium [Moles/Vol] 4.2 mmol/L 3.5-5.1 [facility] Protein [Mass/Vol] 6.0 g/dL 6.4-8.2 [facility] Sodium [Moles/Vol] 140 mmol/L 136-145 [facility] WBC (Bld) [#/Vol] 5.9 10*3/uL 4.4-11.0 [facility] Determination of erythrocyte mean corpuscular volume (MCV)Ordered By: Mitra Martinez on 11-03-2023 MCV (RBC) [Entitic vol] 86.8 fL 80-94 [facility] Erythrocyte distribution wid th ratioOrdered By: Mitra Martinez on 11-03-2023 Erythrocyte distribution width (RBC) [Ratio] 13.4 % 11.6-14.6 [facility] Erythrocyte distribution wid th standard deviationOrdered By: Mitra Martinez on 11-03-2023 Erythrocyte distribution width (RBC) [Entitic vol] 42.6 fL 35.1-43.9 [facility] Hematocrit Auto (Bld) [Volum e fraction]Ordered By: Mitra Martinez on 11-03-2023 Hematocrit (Bld) [Volume fraction] 44.9 % 40-54 [facility] Immature granulocytes/100 WB C Auto (Bld)Ordered By: Mitra Martinez on 11-03-2023 Immature granulocytes/100 WBC (Bld) 0.200 % 0.0-0.9 [facility] Comment on above: IG% - Immature Granu locytes (promyelocytes, myelocytes and metamyelocytes) > 1% indicates that a LEFT SHIFT is Present. Laboratory - Chemistry and C hemistry - challengeOrdered By: Mitra Martinez on 11-03-2023 Albumin/Globulin [Mass ratio] 1.1 {ratio} 0.9-2.4 [facility] ALP [Catalytic activity/Vol] 102 U/L 45-117 [facility] ALT [Catalytic activity/Vol] 19 U/L 16-61 [facility] CO2 [Moles/Vol] 28.0 mmol/L 21.0-32.0 [facility] Globulin (S) [Mass/Vol] 2.9 g/dL 2.2-4.2 [facility] Magnesium [Mass/Vol] 2.1 mg/dL 1.6-2.6 [facility] Urea nitrogen/Creatinine [Mass ratio] 14.5 mg/mg 10-20 [facility] - Hematology and Cell countsOrdered By: Mirta Martinez on 11-03-2023 MCH (RBC) [Entitic mass] 27.7 pg 27.0-32.0 [facility] MCHC (RBC) [Mass/Vol] 31.8 g/dL 32-36 [facility] Nucleated RBC/100 WBC (Bld) [Ratio] 0 % 0-5 [facility] Platelets (Bld) [#/Vol] 159 10*3/uL 150-450 [facility] No Panel InformationOrdered By: Mitra Martinez on 11-03-2023 Estimated Creatinine Clearance Calc 90.90 ml/min [facility] Estimated GFR (MDRD) Amer 118 mL/min >60 [facility] Comment on above: GFR Calc Estimated GFR (MDRD) Non-Af Amer 98 mL/min >60 [facility] Comment on above: Non- GFR Calc Platelet mean volume Fred-Ec ker (Bld) [Entitic vol]Ordered By: Mitra Martinez on 11-03-2023 Platelet mean volume (Bld) [Entitic vol] 9.5 fL 6.2-12.0 [facility] RBC Auto (Bld) [#/Vol]Ordere d By: Mitra Martinez on 11-03-2023 RBC (Bld) [#/Vol] 5.17 10*6/uL 4.6-6.2 [facility] Serum or plasma calcium mamie urement (mass/volume)Ordered By: Mitra Martinez on 11-03-2023 Calcium [Mass/Vol] 8.9 mg/dL 8.5-10.1 [facility] Serum or plasma creatinine m easurement (mass/volume)Ordered By: Mitra Martinez on 11-03-2023 Creatinine [Mass/Vol] 0.83 mg/dL 0.70-1.30 [facility] Comment on above: The validity of the calculated GFR & GFRAA in patients over 70 years has not been determined. Clinical correlation is essential. Serum or plasma thyroid stim ulating hormone (TSH) measurement (units/volume)Ordered By: Mitra Martinez on 11-03-2023 TSH Qn 0.39 uIU/mL 0.358-3.74 [facility] Serum or plasma urea nitroge n measurement (mass/volume)Ordered By: Mitra Martinez on 11-03-2023 Urea nitrogen [Mass/Vol] 12 mg/dL 7-18 [facility] Thin prep Papanicolaou smear with manual screeningOrdered By: Mitra Martinez on 11-03-2023 Thin prep Papanicolaou smear with manual screening 3.1 g/dL 3.2-5.0 [facility] Thin prep Papanicolaou smear with manual screening 18 U/L 15-37 [facility] Thin prep Papanicolaou smear with manual screening 3 5-15 [facility] Absolute lymphocyte countOrd ered By: Arik Cade on 11-02-2023 Lymphocytes Auto (Unsp spec) [#/Vol] 1.95 10*3/uL 0.83-4.51 [facility] Automated lymphocyte count a s percentage of total leukocytesOrdered By: Arik Cade on 11-02-2023 Lymphocytes/100 WBC Auto (Unsp spec) 27.7 % 19-41 [facility] Basophil percentageOrdered B y: Arik Cade on 11-02-2023 Basophils/100 WBC (Bld) 0.4 % 0-1 [facility] Chloride [Moles/Vol] 107 mmol/L 98-107 [facility] Eosinophils/100 WBC (Bld) 2.6 % 0-5 [facility] Glucose [Mass/Vol] 128 mg/dL 74-106 [facility] Comment on above: Fasting Glucose resu lt greater than or equal to 126 mg/dL suggests DIABETES MELLITUS per A.D.A. criteria. Hemoglobin (Bld) [Mass/Vol] 15.0 g/dL 13.0-16.5 [facility] Monocytes/100 WBC (Bld) 8.4 % 0-10 [facility] Neutrophils (Bld) [#/Vol] 4.3 10*3/uL 2.0-7.7 [facility] Neutrophils/100 WBC (Bld) 60.5 % 47-70 [facility] Potassium [Moles/Vol] 3.5 mmol/L 3.5-5.1 [facility] Sodium [Moles/Vol] 140 mmol/L 136-145 [facility] WBC (Bld) [#/Vol] 7.0 10*3/uL 4.4-11.0 [facility] Determination of erythrocyte mean corpuscular volume (MCV)Ordered By: Arik Cade on 11-02-2023 MCV (RBC) [Entitic vol] 86.5 fL 80-94 [facility] Erythrocyte distribution wid th ratioOrdered By: Arik Cade on 11-02-2023 Erythrocyte distribution width (RBC) [Ratio] 13.4 % 11.6-14.6 [facility] Erythrocyte distribution wid th standard deviationOrdered By: Arik Cade on 11-02-2023 Erythrocyte distribution width (RBC) [Entitic vol] 42.6 fL 35.1-43.9 [facility] Hematocrit Auto (Bld) [Volum e fraction]Ordered By: Arik Cade on 11-02-2023 Hematocrit (Bld) [Volume fraction] 45.4 % 40-54 [facility] Immature granulocytes/100 WB C Auto (Bld)Ordered By: Arik Cade on 11-02-2023 Immature granulocytes/100 WBC (Bld) 0.400 % 0.0-0.9 [facility] Comment on above: IG% - Immature Granu locytes (promyelocytes, myelocytes and metamyelocytes) > 1% indicates that a LEFT SHIFT is Present. Laboratory - Chemistry and C hemistry - challengeOrdered By: Arik Cade on 11-02-2023 CO2 [Moles/Vol] 25.0 mmol/L 21.0-32.0 [facility] Urea nitrogen/Creatinine [Mass ratio] 17.1 mg/mg 10-20 [facility] Laboratory - Hematology and Cell countsOrdered By: Arik Cade on 11-02-2023 MCH (RBC) [Entitic mass] 28.6 pg 27.0-32.0 [facility] MCHC (RBC) [Mass/Vol] 33.0 g/dL 32-36 [facility] Nucleated RBC/100 WBC (Bld) [Ratio] 0 % 0-5 [facility] Platelets (Bld) [#/Vol] 189 10*3/uL 150-450 [facility] No Panel InformationOrdered By: Arik Cade on 11-02-2023 Estimated Creatinine Clearance Calc 80.26 ml/min [facility] Estimated GFR (MDRD) Amer 103 mL/min >60 [facility] Comment on above: GFR Calc Estimated GFR (MDRD) Non-Af Amer 85 mL/min >60 [facility] Comment on above: Non- GFR Calc Platelet mean volume Fred-Ec ker (Bld) [Entitic vol]Ordered By: Arik Cade on 11-02-2023 Platelet mean volume (Bld) [Entitic vol] 9.7 fL 6.2-12.0 [facility] RBC Auto (Bld) [#/Vol]Ordere d By: Arik Cade on 11-02-2023 RBC (Bld) [#/Vol] 5.25 10*6/uL 4.6-6.2 [facility] Serum or plasma calcium mamie urement (mass/volume)Ordered By: Arik Cade on 11-02-2023 Calcium [Mass/Vol] 8.9 mg/dL 8.5-10.1 [facility] Serum or plasma creatinine m easurement (mass/volume)Ordered By: Arik Cade on 11-02-2023 Creatinine [Mass/Vol] 0.94 mg/dL 0.70-1.30 [facility] Comment on above: The validity of the calculated GFR & GFRAA in patients over 70 years has not been determined. Clinical correlation is essential. Serum or plasma urea nitroge n measurement (mass/volume)Ordered By: Arik Cade on 11-02-2023 Urea nitrogen [Mass/Vol] 16 mg/dL 7-18 [facility] Thin prep Papanicolaou smear with manual screeningOrdered By: Arik Cade on 11-02-2023 Thin prep Papanicolaou smear with manual screening 114 mg/dL 74-106 [facility] Comment on above: MANAGEMENT OF PATIEN T CARE PER NURSING PROTOCOL Thin prep Papanicolaou smear with manual screening 8 5-15 [facility] Absolute lymphocyte countOrd ered By: Mike Aburto on 08-20-2023 Lymphocytes Auto (Unsp spec) [#/Vol] 1.04 10*3/uL 0.83-4.51 [facility] Basophil percentageOrdered B y: Mike Aburto on 08-20-2023 Basophils/100 WBC (Bld) 0.4 % 0-1 [facility] Bilirubin [Mass/Vol] 0.80 mg/dL 0.20-1.00 [facility] Comment on above: For patients on eltr ombopag therapy, use of Dimension [place] TBIL is not recommended. Chloride [Moles/Vol] 106 mmol/L 98-107 [facility] Eosinophils/100 WBC (Bld) 0.6 % 0-5 [facility] Glucose [Mass/Vol] 106 mg/dL 74-106 [facility] Comment on above: Fasting Glucose resu lt from 100 to 125 mg/dL suggests IMPAIRED HOMEOSTASIS per A.D.A. criteria. Neutrophils (Bld) [#/Vol] 6.8 10*3/uL 2.0-7.7 [facility] Neutrophils/100 WBC (Bld) 81.1 % 47-70 [facility] Potassium [Moles/Vol] 4.6 mmol/L 3.5-5.1 [facility] Protein [Mass/Vol] 6.3 g/dL 6.4-8.2 [facility] Sodium [Moles/Vol] 140 mmol/L 136-145 [facility] WBC (Bld) [#/Vol] 8.4 10*3/uL 4.4-11.0 [facility] Blood erythrocytes count (nu mber/volume)Ordered By: Mike Aburto on 08-20-2023 RBC (Bld) [#/Vol] 5.84 10*6/uL 4.6-6.2 [facility] Blood hemoglobin measurement (mass/volume)Ordered By: Mike Aburto on 08-20-2023 Hemoglobin (Bld) [Mass/Vol] 16.5 g/dL 13.0-16.5 [facility] Blood lymphocytes/100 leukoc ytesOrdered By: [facility] on 08-20-2023 Lymphocytes/100 WBC (Bld) 12.5 % 19-41 [facility] Blood monocytes/100 leukocyt esOrdered By: [facility] on 08-20-2023 Monocytes/100 WBC (Bld) 4.8 % 0-10 [facility] Blood platelet mean volumeOr dered By: [facility] on 08-20-2023 Platelet mean volume (Bld) [Entitic vol] 9.4 fL 6.2-12.0 [facility] Determination of erythrocyte mean corpuscular volume (MCV)Ordered By: [facility] on 08-20-2023 MCV (RBC) [Entitic vol] 88.2 fL 80-94 [facility] Hematocrit Auto (Bld) [Volum e fraction]Ordered By: [facility] on 08-20-2023 Hematocrit (Bld) [Volume fraction] 51.5 % 40-54 [facility] Laboratory - Chemistry and C hemistry - challengeOrdered By: [facility] 08-20-2023 ALP [Catalytic activity/Vol] 92 U/L 45-117 [facility] ALT [Catalytic activity/Vol] 22 U/L 16-61 [facility] CO2 [Moles/Vol] 34.0 mmol/L 21.0-32.0 [facility] Globulin (S) [Mass/Vol] 3.2 g/dL 2.2-4.2 [facility] Urea nitrogen/Creatinine [Mass ratio] 18.0 mg/mg 10-20 [facility] Laboratory - Hematology and Cell countsOrdered By: [facility] 08-20-2023 Erythrocyte distribution width (RBC) [Entitic vol] 44.0 fL 35.1-43.9 [facility] Erythrocyte distribution width (RBC) [Ratio] 13.7 % 11.6-14.6 [facility] Immature granulocytes/100 WBC (Bld) 0.600 % 0.0-0.9 [facility] Comment on above: IG% - Immature Granu locytes (promyelocytes, myelocytes and metamyelocytes) > 1% indicates that a LEFT SHIFT is Present. MCH (RBC) [Entitic mass] 28.3 pg 27.0-32.0 [facility] Nucleated RBC/100 WBC (Bld) [Ratio] 0 % 0-5 [facility] MCHC Auto (RBC) [Mass/Vol]Or dered By: Mike Aburto on 08-20-2023 MCHC (RBC) [Mass/Vol] 32.0 g/dL 32-36 [facility] No Panel InformationOrdered By: Mike Aburto on 08-20-2023 Estimated GFR (MDRD) Amer 75 mL/min >60 [facility] Comment on above: GFR Calc Estimated GFR (MDRD) Non-Af Amer 62 mL/min >60 [facility] Comment on above: Non- GFR Calc Prostate Specific Antigen Screen 2.62 ng/mL 0.00-4.00 [facility] Comment on above: This test was perfor med using the TPSA assay method for the[employer] chemistry system. Values obtained with differentassay methods cannot be used interchangably.When changing PSA assays in the course of monitoring apatient, additional sequential testing should be carriedout to confirm baseline values. Thyroid Stimulating Hormone (TSH) 0.52 uIU/mL 0.358-3.74 [facility] Vitamin D 25-Hydroxy 54.7 ng/mL [facility] Comment on above: Vitamin D 25(OH) Sta tus Range Deficiency <20 ng/mL (50nmol/L) Insufficiency 20 - 30 ng/mL (50 - 75 nmol/L) Sufficiency 30 - 100 ng/mL (75 - 250 nmol/L) Toxicity >100 ng/mL (>250 nmol/L) Platelets bldOrdered By: Mike Aburto on 08-20-2023 Platelets (Bld) [#/Vol] 172 10*3/uL 150-450 [facility] Serum or plasma albumin mamie urement (mass/volume)Ordered By: Mike Aburto on 08-20-2023 Albumin [Mass/Vol] 3.1 g/dL 3.2-5.0 [facility] Serum or plasma albumin/glob ulin mass ratioOrdered By: Mike Aburto on 08-20-2023 Albumin/Globulin [Mass ratio] 1.0 {ratio} 0.9-2.4 [facility] Serum or plasma calcium mamie urement (mass/volume)Ordered By: Mike Aburto on 08-20-2023 Calcium [Mass/Vol] 8.7 mg/dL 8.5-10.1 [facility] Serum or plasma creatinine m easurement (mass/volume)Ordered By: Mike Aburto on 08-20-2023 Creatinine [Mass/Vol] 1.22 mg/dL 0.70-1.30 [facility] Comment on above: The validity of the calculated GFR & GFRAA in patients over 70 years has not been determined. Clinical correlation is essential. Serum or plasma urea nitroge n measurement (mass/volume)Ordered By: Mike Aburto on 08-20-2023 Urea nitrogen [Mass/Vol] 22 mg/dL 7-18 [facility] Thin prep Papanicolaou smear with manual screeningOrdered By: Mike Aburto on 08-20-2023 Thin prep Papanicolaou smear with manual screening 15 U/L 15-37 [facility] Thin prep Papanicolaou smear with manual screening 0 5-15 [facility] Basophil percentageon 2022 Bilirubin [Mass/Vol] 0.60 mg/dL 0.20-1.00 [facility] Comment on above: For patients on eltr ombopag therapy, use of Dimension [place] TBIL is not recommended. Chloride [Moles/Vol] 105 mmol/L 98-107 [facility] Glucose [Mass/Vol] 85 mg/dL 74-106 [facility] Potassium [Moles/Vol] 4.0 mmol/L 3.5-5.1 [facility] Protein [Mass/Vol] 6.4 g/dL 6.4-8.2 [facility] Sodium [Moles/Vol] 139 mmol/L 136-145 [facility] WBC (Bld) [#/Vol] 7.0 10*3/uL 4.4-11.0 [facility] Blood erythrocytes count (nu mber/volume)on 07-21-2023 RBC (Bld) [#/Vol] 5.28 10*6/uL 4.6-6.2 [facility] Blood hemoglobin measurement (mass/volume)on 07-21-2023 Hemoglobin (Bld) [Mass/Vol] 14.8 g/dL 13.0-16.5 [facility] Blood platelet mean volumeon 07-21-2023 Platelet mean volume (Bld) [Entitic vol] 10.3 fL 6.2-12.0 [facility] Determination of erythrocyte mean corpuscular volume (MCV)on 07-21-2023 MCV (RBC) [Entitic vol] 90.0 fL 80-94 [facility] Hematocrit Auto (Bld) [Volum e fraction]on 07-21-2023 Hematocrit (Bld) [Volume fraction] 47.5 % 40-54 [facility] INR in Blood by Coagulation assayon 07-21-2023 INR Coag (Bld) [Relative time] 0.9 {INR} [facility] Laboratory - Chemistry and C hemistry - challengeon 07-21-2023 ALP [Catalytic activity/Vol] 93 U/L 45-117 [facility] ALT [Catalytic activity/Vol] 24 U/L 16-61 [facility] CO2 [Moles/Vol] 31.0 mmol/L 21.0-32.0 [facility] Globulin (S) [Mass/Vol] 3.0 g/dL 2.2-4.2 [facility] Urea nitrogen/Creatinine [Mass ratio] 19.4 mg/mg 10-20 [facility] Laboratory - Coagulationon 1 aPTT Coag (Bld) [Time] 27.0 s 24.1-36.2 [facility] PT Coag (PPP) [Time] 12.3 s 11.7-14.9 [facility] Laboratory - Hematology and Cell countson 07-21-2023 Erythrocyte distribution width (RBC) [Entitic vol] 44.7 fL 35.1-43.9 [facility] Erythrocyte distribution width (RBC) [Ratio] 13.6 % 11.6-14.6 [facility] MCH (RBC) [Entitic mass] 28.0 pg 27.0-32.0 [facility] MCHC Auto (RBC) [Mass/Vol]on 07-21-2023 MCHC (RBC) [Mass/Vol] 31.2 g/dL 32-36 [facility] No Panel Informationon 07-21 Estimated GFR (MDRD) Amer 92 mL/min >60 [facility] Comment on above: GFR Calc Estimated GFR (MDRD) Non-Af Amer 76 mL/min >60 [facility] Comment on above: Non- GFR Calc Platelets bldon 07-21-2023 Platelets (Bld) [#/Vol] 168 10*3/uL 150-450 [facility] Serum or plasma albumin mamie urement (mass/volume)on 07-21-2023 Albumin [Mass/Vol] 3.4 g/dL 3.2-5.0 [facility] Serum or plasma albumin/glob ulin mass ratioon 07-21-2023 Albumin/Globulin [Mass ratio] 1.1 {ratio} 0.9-2.4 [facility] Serum or plasma calcium mamie urement (mass/volume)on 07-21-2023 Calcium [Mass/Vol] 8.9 mg/dL 8.5-10.1 [facility] Serum or plasma creatinine m easurement (mass/volume)on 07-21-2023 Creatinine [Mass/Vol] 1.03 mg/dL 0.70-1.30 [facility] Comment on above: The validity of the calculated GFR & GFRAA in patients over 70 years has not been determined. Clinical correlation is essential. Serum or plasma urea nitroge n measurement (mass/volume)on 07-21-2023 Urea nitrogen [Mass/Vol] 20 mg/dL 7-18 [facility] Thin prep Papanicolaou smear with manual screeningon 07-21-2023 Thin prep Papanicolaou smear with manual screening 17 U/L 15-37 [facility] Thin prep Papanicolaou smear with manual screening 3 5-15 [facility] Bacteria identified Cx Nom ( Wound)Ordered By: Mike Aburto on 04-21-2023 Wound Culture Presumptive E. coli [facility] Gram stain for investigation of transfusion reactionOrdered By: Mike Aburto on 04-21-2023 Microscopic observation Gram stain Nom (Unsp spec) [facility] No Panel InformationOrdered By: Mike Aburto on 04-21-2023 Methicillin-Resist S.aureus DNA PCR Negative Negative [facility] Staphylococcus aureus DNA de tection by probe and target amplification methodOrdered By: Mike Aburto on 04-21-2023 S. aureus DNA ZACHARY+probe Ql (Unsp spec) Negative Negative [facility] CNOVon 04-19-2023 CNOV Office Visit ([facility] ) -- NAM GUZMAN ([id number]) 1955 M Date Time Provider Department 04/19/23 11:45 AM JEFFREY BETHEA [facility] During your visit today, we recorded the following information about you: Temperature Pulse Respiration Blood pressure 97.5 degrees 78/minute 16/minute 122/80 Weight 91.2 kg Jeffrey Bethea APRN.[employer] 04/19/2023 11:26 AM Signed ASSESSMENT/PLAN: 1. Skin infection - ICD9: 686.9, ICD10: L08.9 - Begin treatment with Cephalaxin (Keflex) - No lymphangetic streaking, this was defined for patient to watch for and to seek medical care immediately if appears - Follow up for recheck in three days if persisting Urgent f/u for worsening. - CEPHALEXIN 500 MG CAPSULE Jeffrey Bethea APRN.CNP 04/19/2023 11:31 AM Signed Subjective HPI HPI Nma Guzman is a 68 year old male who presents today for CC of right leg skin tear, now red. This started 1 week ago. Has tried nothing for relief. Symptoms are worsened by nothing. Denies diabetes. Patient not known to [facility], denies renal/hepatic disease. .Patient presents with: infected [...] 500 MG CAPSULE Jeffrey Bethea APRN.NAMITA Bethea APRN.NAMITA 04/19/2023 11:32 AM Signed Addended by: JEFFREY [...] Status:Closed by JEFFREY BETHEA on 04/19/23 [facility] Basophil percentageOrdered B y: Mike Aburto on 03-11-2023 Basophil percentage < 0.9 mg/dL 0.70-1.30 [facility] No Panel InformationOrdered By: Mike Aburto on 03-11-2023 Bedside Estimated GFR (eGFR) > 60.0000 mL/min >60 [facility] Vital Signs Date Time Vital Sign Value Performing Clinician Facility 04-01-2025 15:00-0400 Body temperature 97 [degF] Dr. Mike Aburto MD Work Phone: [facility] 04-01-2025 15:00-0400 Diastolic blood pressure 87 mm[Hg] Dr. Mike Aburto MD Work Phone: [facility] 04-01-2025 15:00-0400 Heart rate 50 /min Dr. Mike Aburto MD Work Phone: [facility] 04-01-2025 15:00-0400 Respiratory rate 16 /min Dr. Mike Aburto MD Work Phone: [facility] 04-01-2025 15:00-0400 SaO2% (BldA) [Mass fraction] 92 % Dr. Mike Aburto MD Work Phone: [facility] 04-01-2025 15:00-0400 Systolic blood pressure 136 mm[Hg] Dr. Mike Aburto MD Work Phone: [facility] 04-01-2025 14:45-0400 Inhaled oxygen flow rate 2 L/min Dr. Mike Aburto MD Work Phone: [facility] 04-01-2025 09:50-0400 Body height 182.[address] Mike Aburto MD Work Phone: [facility] 04-01-2025 09:50-0400 Body mass index (BMI) [Ratio] 27.3 kg/m2 Dr. Mike Aburto MD Work Phone: [facility] 04-01-2025 09:50-0400 Body weight 91.[address] Mike Aburto MD Work Phone: [facility] 12-15-2024 11:10-0500 Body temperature 98.01 [degF] Robby Castrejon PA-C Work Phone: [facility] 12-15-2024 11:10-0500 Diastolic blood pressure 88 mm[Hg] Robby Castrejon PA-C Work Phone: [facility] 12-15-2024 11:10-0500 Heart rate 81 /min Robby Castrejon PA-C Work Phone: [facility] 12-15-2024 11:10-0500 SaO2% (BldA) [Mass fraction] 98 % Robby Castrejon PA-C Work Phone: [facility] 12-15-2024 11:10-0500 Systolic blood pressure 118 mm[Hg] Robby Castrejon PA-C Work Phone: [facility] 12-02-2024 12:31-0500 Body temperature 98.1 [degF] Robby Castrejon PA-C Work Phone: [facility] 12-02-2024 12:31-0500 Diastolic blood pressure 98 mm[Hg] Robby Castrejon PA-C Work Phone: [facility] 12-02-2024 12:31-0500 Heart rate 84 /min Robby Castrejon PA-C Work Phone: [facility] 12-02-2024 12:31-0500 SaO2% (BldA) [Mass fraction] 97 % Robby Castrejon PA-C Work Phone: [facility] 12-02-2024 12:31-0500 Systolic blood pressure 139 mm[Hg] Robby Castrejon PA-C Work Phone: [facility] 11-19-2024 11:59-0500 Body temperature 97.7 [degF] Andrew Guzman MD Work Phone: [facility] 11-19-2024 11:59-0500 Diastolic blood pressure 73 mm[Hg] Andrew Guzman MD Work Phone: [facility] 11-19-2024 11:59-0500 Heart rate 61 /min Andrew Guzman MD Work Phone: [facility] 11-19-2024 11:59-0500 Respiratory rate 16 /min Andrew Guzman MD Work Phone: [facility] 11-19-2024 11:59-0500 SaO2% (BldA) [Mass fraction] 91 % Andrew Guzman MD Work Phone: [facility] 11-19-2024 11:59-0500 Systolic blood pressure 126 mm[Hg] Andrew Guzman MD Work Phone: [facility] 11-18-2024 09:04-0500 Body height 182.9 cm Andrew Guzman MD Work Phone: [facility] 11-18-2024 09:04-0500 Body mass index (BMI) [Ratio] 27.51 kg/m2 Andrew Guzman MD Work Phone: [facility] 11-18-2024 09:04-0500 Body weight 92 kg Andrew Guzman MD Work Phone: [facility] 10-08-2024 14:10-0500 Diastolic blood pressure 83 mm[Hg] Andrew Guzman MD Work Phone: [facility] 10-08-2024 14:10-0500 Heart rate 88 /min Andrew Guzman MD Work Phone: [facility] 10-08-2024 14:10-0500 SaO2% (BldA) [Mass fraction] 97 % Andrew Guzman MD Work Phone: [facility] 10-08-2024 14:10-0500 Systolic blood pressure 125 mm[Hg] Andrew Guzman MD Work Phone: [facility] 09-30-2024 09:08-0500 Diastolic blood pressure 83 mm[Hg] Ahmet Frances PA-C Work Phone: [facility] 09-30-2024 09:08-0500 Heart rate 78 /min Ahmet Frances PA-C Work Phone: [facility] 09-30-2024 09:08-0500 SaO2% (BldA) [Mass fraction] 95 % Ahmet Frances PA-C Work Phone: [facility] 09-30-2024 09:08-0500 Systolic blood pressure 127 mm[Hg] Ahmet Frances PA-C Work Phone: [facility] 11-14-2023 11:04-0500 Body height 182.[address] Mike Aburto Work Phone: [facility] 11-14-2023 11:04-0500 Body mass index (BMI) [Ratio] 26.7 kg/m2 Dr. Mike Aburto Work Phone: [facility] 11-14-2023 11:04-0500 Body weight 89.[address] Mike Aburto Work Phone: [facility] 11-14-2023 11:04-0500 Diastolic blood pressure 87 mm[Hg] Dr. Mike Aburto Work Phone: 1(885)906-923702 [place] [address] 11-14-2023 11:04-0500 Heart rate 67 /min Dr. Mike Aburto Work Phone: 7(829)461-375202 [place] [address] 11-14-2023 11:04-0500 Respiratory rate 18 /min Dr. Mike Aburto Work Phone: 8(396)685-929102 [place] [address] 11-14-2023 11:04-0500 Systolic blood pressure 135 mm[Hg] Dr. Mike Aburto Work Phone: 5(369)772-550263 [address] 11-03-2023 14:06-0500 Body temperature 98.1 [degF] Dr. Mike Aburto Work Phone: 4(716)611-804802 [place] [address] 11-03-2023 14:06-0500 Diastolic blood pressure 94 mm[Hg] Dr. Mike Aburto Work Phone: 1(676)583-203302 [place] [address] 11-03-2023 14:06-0500 Heart rate 69 /min Dr. Mike Aburto Work Phone: 0(228)940-163802 [place] [address] 11-03-2023 14:06-0500 Respiratory rate 18 /min Dr. Mike Aburto Work Phone: [facility] 11-03-2023 14:06-0500 SaO2% (BldA) [Mass fraction] 18 % Dr. Mike Aburto Work Phone: 4(286)715-842102 [place] [address] 11-03-2023 14:06-0500 Systolic blood pressure 154 mm[Hg] Dr. Mike Aburto Work Phone: [facility] 11-02-2023 11:14-0500 Body height 182.[address] Mike Aburto Work Phone: 3(010)590-061102 [place] [address] 11-02-2023 11:14-0500 Body mass index (BMI) [Ratio] 27.2 kg/m2 Dr. Mike Aburto Work Phone: 4(976)655-134702 [place] [address] 11-02-2023 11:14-0500 Body weight 91.[address] Mike Aburto Work Phone: 6(413)392-448216 [place] [address] 11-02-2023 09:00-0500 Respiratory rate 20 /min Dr. Mike Aburto Work Phone: 3(551)230-273616 [place] [address] 11-02-2023 06:39-0500 Diastolic blood pressure 84 mm[Hg] Dr. Mike Aburto Work Phone: 0(738)966-463816 [place] [address] 11-02-2023 06:39-0500 Heart rate 67 /min Dr. Mike Aburto Work Phone: 3(805)670-172216 [place] [address] 11-02-2023 06:39-0500 SaO2% (BldA) [Mass fraction] 94 % Dr. Mike Aburto Work Phone: 1(996)022-962416 [place] [address] 11-02-2023 06:39-0500 Systolic blood pressure 133 mm[Hg] Dr. Mike Aburto Work Phone: 9(569)492-991316 [place] [address] 11-02-2023 05:27-0500 Body height 182.[address] Mike Aburto Work Phone: 8(921)749-221016 [place] [address] 11-02-2023 05:27-0500 Body mass index (BMI) [Ratio] 26.9 kg/m2 Dr. Mike Aburto Work Phone: 6(086)455-944516 [place] [address] 11-02-2023 05:27-0500 Body temperature 98.1 [degF] Dr. Mike Aburto Work Phone: 7(298)266-897516 [place] [address] 11-02-2023 05:27-0500 Body weight 89.[address] Mike Aburto Work Phone: 3(175)397-447816 [place] [address] 08-13-2023 11:08-0400 Body height 182.[address] Mike Aburto Work Phone: 7(979)767-517516 [place] [address] 08-13-2023 11:08-0400 Body mass index (BMI) [Ratio] 27.1 kg/m2 Dr. Mike Aburto Work Phone: [facility] 08-13-2023 11:08-0400 Body weight 90.[address] Mike Aburto Work Phone: [facility] 08-13-2023 11:08-0400 Diastolic blood pressure 86 mm[Hg] Dr. Mike Aburto Work Phone: [facility] 08-13-2023 11:08-0400 Heart rate 78 /min Dr. Mike Aburto Work Phone: [facility] 08-13-2023 11:08-0400 Respiratory rate 16 /min Dr. Mike Aburto Work Phone: [facility] 08-13-2023 11:08-0400 SaO2% (BldA) [Mass fraction] 96 % Dr. Mike Aburto Work Phone: [facility] 08-13-2023 11:08-0400 Systolic blood pressure 149 mm[Hg] Dr. Mike Aburto Work Phone: [facility] 05-27-2023 09:49-0400 Body mass index (BMI) [Ratio] 27.1 kg/m2 [facility] 05-27-2023 09:49-0400 Body temperature 97.2 [degF] [facility] 05-27-2023 09:49-0400 Diastolic blood pressure 89 mm[Hg] [facility] 05-27-2023 09:49-0400 Heart rate 88 /min [facility] 05-27-2023 09:49-0400 Respiratory rate 16 /min [facility] 05-27-2023 09:49-0400 Systolic blood pressure 143 mm[Hg] [facility] 05-13-2023 00:42-0400 Body weight 90.71 kg [facility] 05-06-2023 08:11-0400 Body mass index (BMI) [Ratio] 27.1 kg/m2 [facility] 05-06-2023 08:11-0400 Body temperature 97.9 [degF] [facility] 05-06-2023 08:11-0400 Diastolic blood pressure 91 mm[Hg] [facility] 05-06-2023 08:11-0400 Heart rate 84 /min [facility] 05-06-2023 08:11-0400 Respiratory rate 18 /min [facility] 05-06-2023 08:11-0400 Systolic blood pressure 141 mm[Hg] [facility] 04-29-2023 [id number] Body height 182.88 cm [facility] 04-29-2023 [id number] Body weight 90.71 kg [facility] Encounters Encounter Date Encounter Type Care Provider Facility Start: 04-13-2025 ambulatory [facility] Facility:[facility] Start: 04-05-2025 ambulatory [facility] Facility:[facility] Start: 04-01-2025 End: 04-01-2025 Admission to same day surgery center Dr. Neeraj Mcnulty MD -[facility] Start: 04-01-2025 End: 04-01-[address] Mike Aburto MD Work Phone: [facility] Work Phone: Start: 03-29-2025 ambulatory Mike Underwood Lamonte Facility:[facility] Start: 03-25-2025 End: 03-25-[address] Mike Aburto MD Work Phone: [facility] Work Phone: Start: 03-25-2025 End: 03-25-[address] Mike Aburto MD -Cat Scan [facility] Work Phone: Start: 03-25-2025 End: 03-25-2025 ambulatory Mike Afshin Lamonte Facility:[facility] Start: 03-14-2025 End: 03-14-[address] Mike Aburto MD Work Phone: [facility] Work Phone: Start: 03-14-2025 End: 03-14-[address] Mike Aburto MD -Laboratory Work Phone: Start: 03-14-2025 End: 03-14-2025 ambulatory Mike Afshin Aburto Facility:[facility] Start: 02-22-2025 End: 02-22-2025 ambulatory [facility] Start: 02-14-2025 End: 02-14-2025 ambulatory [facility] Start: 02-14-2025 End: 02-18-2025 ambulatory KIKE JOSHI [facility] Start: 01-28-2025 End: 01-28-2025 Office outpatient visit 15 minutes Andrew Guzman MD Work Phone: [facility] Comment on above: Failed back syndrome (Primary Dx); Lumbar foraminal stenosis Start: 01-28-2025 End: 01-28-2025 ambulatory MIKE CHI LAMONTE [facility] Start: 01-05-2025 End: 01-05-2025 Orders Only Robby ALONZOC Work Phone: [facility] Comment on above: Status post lumbar s urgery (Primary Dx); Status post insertion of spinal cord stimulator Start: 12-21-2024 End: 12-21-[address] Mike Aburto MD Work Phone: [facility] Work Phone: Start: 12-21-2024 End: 12-21-2024 Patient encounter procedure Cathleen Fermin PA -Laboratory Work Phone: Start: 12-21-2024 End: 12-21-2024 ambulatory Mike Chi Lamonte Facility:[facility] Start: 12-15-2024 End: 12-15-2024 Postop follow up visit related to original px Robby Castrejon PA-C Work Phone: [facility] Comment on above: Failed back syndrome (Primary Dx) Start: 12-15-2024 End: 12-15-2024 ambulatory ROBBY CASTREJON [facility] Start: 12-08-2024 End: 12-08-2024 ambulatory MIKE CHI LAMONTE [facility] Start: 12-08-2024 End: 12-08-2024 Documentation procedure Robby Blaze Castrejon PA-C Work Phone: [facility] Start: 12-02-2024 End: 12-02-2024 Postop follow up visit related to original px Robby Thakur Lucía TARIQ Work Phone: [facility] Comment on above: Failed back syndrome (Primary Dx) Start: 12-02-2024 End: 12-02-2024 ambulatory ROBBY THAKUR LUCÍA [facility] Start: 11-26-2024 End: 11-30-2024 Clinical Support Zuly Good RN [facility] Comment on above: Arrived Start: 11-18-2024 End: 11-19-2024 ambulatory [facility] Start: 11-18-2024 End: 11-19-2024 Subsequent hospital visit by physician Andrew Guzman MD Work Phone: [facility] Start: 10-28-2024 Preprocedural examin ation done Zuly Good RN [facility] Start: 10-28-2024 End: 10-28-2024 ambulatory [facility] Start: 10-28-2024 End: 11-01-2024 Encounter for other preprocedural examination KIKE JOSHI [facility] Start: 10-28-2024 End: 11-01-2024 Clinical Support Zuly Good RN [facility] Comment on above: Malfunction of spina l cord stimulator, initial encounter (Primary Dx) Start: 10-08-2024 End: 10-08-2024 ambulatory PROVIDER NOT IN SYSTEM [facility] Start: 10-08-2024 End: 10-08-2024 Office outpatient new 30 minutes Andrew Guzman MD Work Phone: [facility] Comment on above: Malfunction of spina l cord stimulator, initial encounter (HCC) (Primary Dx); Scoliosis of lumbar spine, unspecified scoliosis type; Lumbar spondylosis; Polymyalgia rheumatica (HCC) Start: 10-08-2024 End: 10-08-2024 [facility] Start: 10-08-2024 End: 10-08-2024 ambulatory PROVIDER NOT IN SYSTEM [facility] Start: 10-08-2024 ambulatory WILBER BLAND [facility] Start: 10-05-2024 End: 10-05-2024 Patient encounter procedure Ahmet Frances PA-C -Cat Scan, [facility] Work Phone: Start: 10-05-2024 End: 10-05-2024 ambulatory Mike Chi Lamonte Facility:[facility] Start: 09-30-2024 End: 09-30-2024 Office outpatient new 30 minutes Mike Aburto MD Work Phone: [facility] Comment on above: Failed back syndrome (Primary Dx); Lumbar radiculopathy Start: 09-30-2024 End: 09-30-2024 ambulatory MIKE CHI LAMONTE [facility] Start: 09-13-2024 End: 09-13-2024 Transcribe Orders Mike Aburto MD Work Phone: [facility] Comment on above: Encounter for adjust ment and management of neurostimulator (Primary Dx) Start: 09-03-2024 End: 09-03-[address] Mike Aburto MD -Cat Scan, [facility] Work Phone: Start: 09-03-2024 End: 09-03-2024 ambulatory Mike Chi Lamonte Facility:[facility] Start: 08-23-2024 End: 08-23-2024 ambulatory Mike Chi Lamonte Facility:[facility] Start: 08-04-2024 ambulatory Mike Chi Lamonte Facility:[facility] Start: 08-04-2024 End: 08-04-2024 ambulatory Mike Chi Lamonte Facility:[facility] Start: 07-27-2024 End: 07-27-2024 ambulatory Chris Varma Facility:[facility] Start: 06-23-2024 End: 06-23-2024 ambulatory Mike Chi Lamonte Facility:[facility] Start: 11-26-2023 End: 11-26-[address] Mike Aburto Work Phone: [facility] Work Phone: Start: 11-26-2023 End: 11-26-[address] Mike Aburto Work Phone: [facility]-Laboratory Work Phone: Start: 11-24-2023 Non-patient / Non-visit Dr. Joseph Aburto Work Phone: [facility] Work Phone: Start: 11-21-2023 Non-patient / Non-visit Dr. Joseph Aburto Work Phone: [facility] Start: 11-21-2023 End: 11-21-[address] Mike Aburto Work Phone: [facility] Work Phone: Start: 11-21-2023 End: 11-21-[address] Mike Aburto Work Phone: [facility]Cardiovascula r Services Work Phone: Start: 11-20-2023 End: 11-20-[address] Mike Aburto Work Phone: [facility] Work Phone: Start: 11-20-2023 End: 11-20-[address] Mike Aburto Work Phone: [facility] Work Phone: Start: 11-14-2023 End: 11-14-[address] Mike [facility] Work Phone: Start: 11-06-2023 End: 11-06-[address] Mike Aburto Work Phone: [facility] Work Phone: Start: 11-06-2023 End: 11-06-[address] [facility] Start: 11-03-2023 Non-patient / Non-visit Dr. Joseph Aburto Work Phone: [facility] Work Phone: Start: 11-02-2023 End: 11-03-2023 Evaluation and management of inpatient Dr. Mike [facility]urto [facility] Work Phone: Start: 11-02-2023 End: 11-03-[address] Mike Aburto Work Phone: [facility] Work Phone: Start: 08-20-2023 End: 08-20-[address] Mike Aburto Work Phone: [facility] Work Phone: Start: 08-20-2023 End: 08-20-[address] Mike [facility] Start: 08-13-2023 End: 08-13-[address] Mike Aburto Work Phone: [facility] Work Phone: Start: 07-21-2023 End: 07-21-2023 ambulatory [facility] Work Phone: Start: 07-21-2023 End: 07-21-2023 Patient encounter procedure [facility]Labor[facility] Work Phone: Start: 05-27-2023 End: 06-12-2023 ambulatory [facility] Work Phone: Start: 05-27-2023 End: 06-12-2023 Discharged Recurring [facility] Work Phone: Start: 05-06-2023 End: 05-12-2023 ambulatory [facility] Work Phone: Start: 05-06-2023 End: 05-12-2023 Discharged Recurring [facility] Work Phone: Start: 04-21-2023 End: 04-21-2023 Patient encounter procedure [facility]-Laboratory, Phy Office 3rd Flr Start: 04-19-2023 End: 04-19-2023 ambulatory Facility:[facility] Start: 03-11-2023 End: 03-11-2023 ambulatory [facility] Work Phone: Start: 03-11-2023 End: 03-11-2023 Patient encounter procedure [facility]-Cat Scan, [facility] Work Phone: Start: 02-21-2023 End: 02-21-2023 Patient encounter procedure [facility]-Radiology, [facility] Work Phone: Procedures Date Procedure Procedure Detail Performing Clinician Start: 04-01-2025 Extracorp[address] shock wave lith[address] Mike Aburto MD Work Phone: Start: 03-25-[address] Jluis [...] 07-09-2032 Tetanus vaccination Tetanus: Every 1 0yrs [facility] Start: 02-13-2028 Respiratory Syncytia l Virus Immunization: Risk, 60-74 Risk, or 75+ (1 - 1-dose 75+ series) Respiratory Syncytial Virus Immunization: Risk, 60-74 Risk, or 75+ (1 - 1-dose 75+ series) [facility] Start: 08-20-2027 Screening for malign ant neoplasm of colon [facility] Start: 04-01-2025 Ambulation without limitation [facility] Start: 04-01-2025 Medical regimen orde rs management [facility] Start: 04-01-[address] [facility] Start: 04-01-2025 Patient discharge [facility] Start: 04-01-2025 Taking patient vital signs [facility] Start: 04-01-2025 [facility] Start: 04-01-2025 Plain X-ray abdomen Abd Inc De cub and/or Erect [facility] Start: 04-01-2025 XR Abdomen upright a nd left lateral decubitus [facility] Start: 01-25-2025 End: 01-25-2025 Follow-up encounter 01/25/2025 2:00 PM EDT Follow-Up [facility] [place] [address] Andrew Guzman MD [address] [address] [facility] Start: 12-30-2024 End: 12-30-2024 Patient encounter procedure 12/30/2024 11:15 AM EDT Office Visit [facility] [address] [facility] [place] [address] Robby Castrejon PA-C [address] [address] [facility] Start: 12-15-2024 End: 12-15-2024 Patient encounter procedure 12/15/2024 11:15 AM EST Office Visit [facility] [address] [facility] [place] [phone] Robby Castrejon PA-C [address] [address] [facility] Start: 12-08-2024 End: 12-08-2024 Clinical Support 12/08/2024 11:00 AM EST Clinical Support [facility] [address] [facility] [place] [address] [facility] Start: 12-03-2024 End: 12-03-2024 Follow-up encounter 12/03/2024 1:00 PM EST Follow-Up [facility] [address] [facility] [place] [address] Robby Castrejon PA-C [address] [address] [facility] Start: 11-26-2024 End: 11-26-2024 Clinical Support 11/26/2024 11:00 AM EST Clinical Support [facility] [address] [facility] [place] [address] [facility] Start: 11-11-2024 End: 11-11-2024 Admission to same day surgery center 11/11/2024 6:50 AM EST - 11/11/2024 10:50 AM EST Surgery [facility] [address] [place] [phone] Andrew Guzman MD [address] [address] Thoracic 10-11, possible Thoracic 7-9 Laminectomy, Removal Retained SCS Electrodes, Insertion of Paddle Lead Electrode, possible Thoracic 7-8 Laminoplasty/fusion, Removal of Left Flank IPG, insertion of new Left Flank IPG. [facility] Comment on above: Thoracic 10-11, poss ible Thoracic 7-9 Laminectomy, Removal Retained SCS Electrodes, Insertion of Paddle Lead Electrode, possible Thoracic 7-8 Laminoplasty/fusion, Removal of Left Flank IPG, insertion of new Left Flank IPG. Start: 11-11-2024 End: 11-11-2024 Insj/rplcmt spi npgr dir/induxive coupling INSERTION SPINAL CORD STIMULATOR PERMANENT Malfunction of spinal cord stimulator, initial encounter 11/11/2024 6:50 AM EST [facility] Start: 11-11-2024 Subsequent hospital visit by physician 11/11/2024 6:50 AM EST Hospital Encounter [facility] [address] [place] [phone] Andrew Guzman MD [address] [address] [facility] Start: 10-08-2024 End: 10-08-2024 Patient encounter procedure 10/08/2024 2:15 PM EST Office Visit [facility] [address] [place] [place] [address] Andrew Guzman MD [address] [address] [facility] Start: 09-30-2024 End: 09-30-2025 CT Thoracic spine WO contrast CT Thoracic Spine Without Contrast Imaging STAT Failed back syndrome Expected: 09/30/2024 (Approximate), Expires: 09/30/2025 [facility] Work Phone: Comment on above: Expected: 09/30/2024 (Approximate), Expires: 09/30/2025 Start: 06-13-2024 COVID-19 Vaccine () COVID-19 Vaccine () [facility] Start: 11-06-2023 Procedure [facility] Start: 11-03-2023 Patient discharge [facility] Start: 11-02-2023 Continuous positive airway pressure ventilation treatment [facility] Start: 11-02-2023 Following clinical pathway protocol [facility] Start: 11-02-2023 Assessment of risk o f venous thromboembolism [facility] Start: 11-02-2023 Fall prevention [facility] Start: 11-02-2023 Inhalation therapy procedure [facility] Start: 11-02-2023 Insertion of cathete r into peripheral vein [facility] Start: 11-02-2023 Providing care accor ding to standard [facility] Start: 11-02-2023 Provision of activit y privileges [facility] Start: 11-02-2023 Referral to occupati onal therapist [facility] Start: 11-02-2023 Referral to service [facility] Start: 11-02-2023 [facility] Start: 11-02-[address] [facility] Start: 11-02-2023 Admission procedure [facility] Start: 11-02-2023 Hospital admission, emergency, from emergency room, medical nature [facility] Start: 2018 Fall risk assessment Falls Risk Asse ssment [facility] Start: 2003 Screening for malign ant neoplasm of colon Flexible sigmoidoscopy [facility] Start: 1971 Hepatitis C screening Hepatitis C Sc reening [facility] Start: 1965 Depression screening using PHQ-9 (Patient Health Questionnaire 9) score Depression Screening/Follow-Up (PHQ-2/9) [facility] Start: 02-13-1956 Medicare Wellness Visit Medica re Wellness Visit [facility] Start: 1953 Prostate specific an tigen measurement PSA Level [facility] Start: 1953 Screening for malign ant neoplasm of colon [facility] End: 12-08-2025 C reactive protein [Mass/volume] in Serum or Plasma CRP, Inflammation Lab Routine Erythema Status post lumbar surgery 1 Occurrences starting 12/08/2024 until 12/08/2025 [facility] Comment on above: 1 Occurrences starti ng 12/08/2024 until 12/08/2025 End: 12-08-2025 Complete blood count with white cell differential, manual CBC and Differential Lab Routine Erythema Status post lumbar surgery 1 Occurrences starting 12/08/2024 until 12/08/2025 [facility] Work Phone: Comment on above: 1 Occurrences starti ng 12/08/2024 until 12/08/2025 End: 12-08-2025 Erythrocyte sedimentation rate Sedimentation Rate Lab Routine Erythema Status post lumbar surgery 1 Occurrences starting 12/08/2024 until 12/08/2025 [facility] Comment on above: 1 Occurrences starti ng 12/08/2024 until 12/08/2025 Lipid 1996 panel - S olman or Plasma [facility] Patient Education ED Vertigo, Unspecified [facility] Work Phone: Patient referral [facility] Work Phone: End: 01-05-2026 XR Lumbar spine 2 or 3 Views XR Lumbar Spine 2-3 Views (Standard) Imaging Routine Status post lumbar surgery Status post insertion of spinal cord stimulator 1 Occurrences starting 01/05/2025 until 01/05/2026 [facility] Comment on above: 1 Occurrences starti ng 01/05/2025 until 01/05/2026 XR Lumbar spine 2 or 3 Views XR Lumbar Spine 2-3 Views (Standard) Imaging Routine Status post lumbar surgery Status post insertion of spinal cord stimulator 01/05/2025 2:28 PM EDT [facility] End: 11-18-2024 XR Thoracic spine 2 Views [facility] Work Phone: Comment on above: One time imaging One time imaging for 1 Occurrences starting 11/18/2024 until 11/18/2024 End: 01-05-2026 XR Thoracic spine 3 Views XR Thoracic Spine 3 Views (Standard) Imaging Routine Status post lumbar surgery Status post insertion of spinal cord stimulator 1 Occurrences starting 01/05/2025 until 01/05/2026 [facility] Work Phone: Comment on above: 1 Occurrences starti ng 01/05/2025 until 01/05/2026 XR Thoracic spine 3 Views XR Tho racic Spine 3 Views (Standard) Imaging Routine Status post lumbar surgery Status post insertion of spinal cord stimulator 01/05/2025 2:29 PM EDT [facility] Payers Date Payer Category Payer Self-pay [id number] 2024 Unknown [id number] 2023 Medicare PPO [employer] NOLANAN KESHIAE CHOICE PPO [id number] 2023 Medicare [id number] 2022 Miscellaneous or Other [facility] [id number] 2022 Medicare [id number] 2018 Medicare MEDICARE PART A & B [id number] 2018 Medicare [id number] 1953 Unknown [id number] 2.16.840.1.199954.3.579.2. 900 1953 Unknown [id number] 2.16.840.1.356885.3.579.2. 900 1953 Unknown [id number] 2.16.840.1.471333.3.579.2. 900 1953 Unknown [id number] 2.16.840.1.936828.3.579.2. 900 1953 Unknown [id number] 2.16.840.1.990554.3.579.2. 900 1953 Unknown [id number] 2.16.840.1.028066.3.579.2. 903 1953 Unknown [id number] 2.16.840.1.863319.3.579.2. 903 1953 Unknown [id number] 2.16.840.1.555544.3.579.2. 903 1953 Unknown [id number] 2.16.840.1.121601.3.579.2. 1953 Unknown [id number] 2.16.840.1.398091.3.579.2. 1953 Unknown [id number] 2.16.840.1.379568.3.579.2 1953 Unknown [id number] 2.16.840.1.035997.3.579.2. 1953 Unknown [id number] 2.16.840.1.644881.3.579.2 1953 Unknown [id number] 2.16.840.1.523732.3.579.2 1953 Unknown [id number] 2.16.840.1.669572.3.579.2 1953 Unknown [id number] 2.16.840.1.982820.3.579.2 1953 Unknown [id number] 2.16.840.1.440364.3.579.2 1953 Unknown [id number] 2.16.840.1.094682.3.579.2 1953 Unknown [id number] 2.16.840.1.720528.3.579.2 1953 Unknown [id number] 2.16.840.1.262735.3.579.2 1953 Unknown [id number] 2.16.840.1.840361.3.579.2 1953 Unknown [id number] 2.16.840.1.355101.3.579.2 1953 Unknown [id number] 2.16.840.1.414871.3.579.2 1953 Unknown [id number] 2.16.840.1.932310.3.579.2 1953 Unknown [id number] 2.16840.1.398843.3.579.2. 903 Unknown [facility] [id number] Unknown [id number] 2.16.840.1.634269.3.579.2. 462 Unknown [id number] 2.16840.1.651443.3.579.2. 462 Unknown [id number] 2.16840.1.589530.3.579.2. 462 Unknown [id number] 2.16840.1.417425.3.579.2. 462 Unknown [id number] 2.16840.1.527696.3.579.2. 462 Unknown [id number] 2.16840.1.320538.3.579.2. 462 Unknown [id number] 2.840.1.873697.3.579.2. 462 Unknown [id number] 2.16840.1.982331.3.579.2. 462 Unknown [id number] 2.16840.1.804146.3.579.2. 462 Unknown [id number] 2.16840.1.472720.3.579.2. 462 Unknown [id number] 2.840.1.523217.3.579.2. 462 Unknown [id number] 2.840.1.661526.3.579.2. 462 Unknown [id number] 2.840.1.078827.3.579.2. 462 Unknown [id number] 2.840.1.917176.3.579.2. 462 Social History Date Type Detail Facility Start: 05-27-2020 End: 11-14-2023 Tobacco smoking status NHIS Unknown if ever smoked [facility] Start: 1955 Sex Assigned At Male [facility] Start: 04-19-2014 End: 11-18-2024 History of Social function [facility] Start: 04-19-2014 End: 11-18-2024 Tobacco use panel [facility] Start: 1955 Sex assigned at Not on file [facility] Start: 09-30-2024 End: 03-30-2025 Tobacco smoking status NHIS Never smoked tobacco [facility] Start: 09-30-2024 End: 11-22-2024 Alcoholic beverage intake Lifetime non-drinker (finding) [facility] Start: 10-28-2024 Tobacco use and exposure Smokeless tobacco non-user [facility] Has the electricSkuldtech s, oil, or water [employer] threatened to shut off services in your home in past 12Mo No [facility] (I/We) worried wherayna er (my/our) food would run out before (I/we) got money to buy more. Never true [facility] In the past 12 month s, has lack of transportation kept you from medical appointments or from getting medications? No [facility] Start: 12-31-2024 Sex Male (finding) [facility] Medical Equipment Procedure Code Equipment Code Equipment Original Text Equipment Identifier Dates Hemostat 2 X 4in Surgicel Fibrillar - [id number] Start: 11-18-2024 Hemostat 8 X 12. 5cm X 10mm Surgifoam Gelatin Sponge - [id number] Start: 11-18-2024 Lead 60cm Penta - [id number] Start: 11-18-2024 Sealant 5ml Hemo static Matrix Fast Prep Floseal W/ Recothrom - [id number] Start: 11-18-2024 Sealant 5ml Hemo static Matrix Fast Prep Floseal W/ Recothrom - [id number] Start: 11-18-2024 Hemostat 4 X 8in Surgicel Original Absorbable - [id number] Start: 11-18-2024 Generator Neurostimulator Implantable Xr5 Proclaim - [id number] Start: 11-18-2024 Goals Date Patient Goal Desired Activity /State Functional Status Date Assessment Result Facility 11-03-2023 Functional status Chair;Bathroom Privileg e [facility] Work Phone: Mental Status Date Assessment Result Facility 04-01-2025 Cognitive function Light Pain [facility] Work Phone: 04-01-2025 Cognitive function Patient Anish [place] Person;Place;Time [facility] Work Phone: 11-03-2023 Cognitive function Voice/Name [facility] Work Phone: 11-02-2023 Cognitive function Level Of Cons ciousness Awake;Alert;Appropriate;Follow s Commands [facility] Work Phone: Clinical Notes 04-19-2023 to 04-01-2025 Note Date & Type Note Facility 04-01-2025 Consult note [facility] 04-01-2025 Consult note [facility] 04-01-2025 Consult note Note Date/Time April 01, 2025 4:38pm [facility] Medical Records Department [address] [place] [address] Anesthesia Postop Eval I 04/01/25 1336 MR#: [id number] Acct: [id number] Name: TAMRA GUZMAN Rep #:[id number] : 1955 70 From: Fabiano MCGEE PCP: Dr. Mike Aburto MD Status:REG S DC Y Race: C Location: [place] [address] Anesthesia: Postop Eval I Current Vital Signs Temperature: 97 F Pulse Rate: 63 Blood Pressure: 159/99 Respiratory Rate: 16 Pulse Ox: 96 Assessment Airway patent: Yes Spontaneous unlabored respirations: Yes nausea: No Vomiting: No Anesthesia Complication: No Fluid Hydration Crystalloid volume administer (ml): 1,000 Total IV fluid infused: 1,000 Progress Note Anesthesia document: Postop Eval 1 completed: Yes 04/01/25 1336 <Electronically signed by Fabiano Fall CRNA> Date _ Fabiano Fall CRNA Cosigner Signature: Date CC: ~ Signed [facility] Work Phone: 1(912) 484-134506-20-2025 Discharge summary Author Neeraj Mcnulty [facility] Note Date/Time April 01, 2025 1:33 pm [facility] Medical Records Department [address] [place] [address] Instructions for Home/Discharge Instructions 04/01/25 1332 MR#: [id number] Acct: [id number] Name: TAMRA GUZMAN Rep #:[id number] : 1955 70 From: Neeraj Mcnulty MD PCP: Dr. Mike Aburto MD Status:REG S DC Discharge Instructions Diet Discharge Diet: No restrictions DC O2, CPAP, BIPAP needs Home O2 Discharge instructions: No Dressing / Incision Discharge Activity: Return to Normal Activity and May Not Drive (while taking narcotic pain medications.) Dressing / Incision Call your doctor if you observe: Fever of 101 or Higher Follow Up Care Please Follow Up With: Neeraj Mcnulty MD When: Call [phone] for an appointment Test Results: Test results from this visit will be discussed in further detail at your follow- up appointment, if applicable. Discharge Plan Admission Primary Reason for Your Visit: ESWL Attending Provider: Neeraj Mcnulty Primary Care Provider: Mike Aburto Chi Instructions Print Language: Stateless Discharge Orders/Prescriptions Prescriptions: New oxycodone 5 mg tablet 5 mg PO Q6H PRN (Reason: pain) 3 Days Qty: 14 0RF ciprofloxacin HCl 500 mg tablet 500 mg PO BID Qty: 10 0RF Continued famotidine 40 mg tablet 40 mg PO QHS amlodipine 5 MG tablet 5 mg PO DAILY prednisone 1 MG tablet 2 mg PO DAILY meclizine 25 mg tablet 25 mg PO 4X/DAY PRN PRN (Reason: Dizziness) Qty: 20 0RF hydroxychloroquine 200 mg tablet 200 mg PO BID loratadine [Claritin] 10 mg tablet 10 mg PO DAILY doxycycline hyclate 100 mg tablet 100 mg PO BID rosuvastatin 20 mg tablet 20 mg PO QHS prednisone 10 mg tablet 10 mg PO .SEE DIRECTIONS Referrals / Follow Up: Neeraj Mcnulty MD [Med Staff - Active Staff] - Mike Aburto Chi, MD [Primary Care Provider] - Disposition Disposition (needs filled in before D/C Order can be placed): Home, Self Care 04/01/25 1333<Electronically signed by Neeraj Mcnulty MD>Neeraj Mcnulty MD CC: Dr. Mike Aburto MD ~ Signed [facility] Work Phone: 1(988) 650-224606-20-2025 Procedure note [facility] Medical Records Department [address] [place] [address] Operative Report 04/01/25 1333 MR#: [id number] Acct: [id number] Name: TAMRA GUZMAN Rep #:[id number] : 1955 70 From: Neeraj Mcnulty MD PCP: Dr. Mike Aburto MD Status:REG S NM Location: [place] [address] Operative Report (Standard) Operative Information Date of Procedure: 04/01/25 Pre-Operative Diagnosis: Right kidney stone Post-Operative Diagnosis: The same Surgery/Procedure Performed: Right extracorporeal shockwave lithotripsy engine setter: No Type of Anesthesia: General RN Documented Start/Stop Times: Operation Date: 04/01/25 11:15 Case Time Into Pre-Op 04/01/25 09:32 Out of Pre-Op 04/01/25 12:33 Anesthesia Start 04/01/25 12:38 Into Room 04/01/25 12:38 Procedure Start 04/01/25 12:49 Procedure End 04/01/25 13:26 Anesthesia End 04/01/25 13:31 Out of Room 04/01/25 13:31 Procedure Start Time: 13:31 Procedure Stop Time: 13:33 Select all DRAINS/GRAFTS/IMPLANTS that apply: None Estimated Blood Loss: None Specimen collected: No Description of surgery: Patient is taken back to the operating room after smooth induction of anesthesiawho placed upon on the table we localize a stone in the right upper pole of the kidney and then the F2 focal point of the shockwave machine was focused on the stone we then proceeded with shockwave lithotripsy rate of 90 shocks per minute increasing her power slowly we did a total of 3000 shocks to the stone up to 7 kV a month the stone was monitored during the fragmentation and the stone broke up completely at the end of the treatment cycle. Patient anesthetic was reversed taken back to the PACU in stable condition he will follow-up in the office in a few weeks with an x-ray. Surgical Findings: Stone broke up all the way with shockwave lithotripsy Complications Complications: No Admit VTE Documentation VTE Present on Admission: No VTE Mechan Device Prophylaxis: SCD's VTE Pharm Prophylaxis ordered?: No 04/01/25 1334 Cosigner Signature (if applicable): CC: Dr. Neeraj Mcnulty MD; Dr. Mike Aburto MD~ Signed [facility]06-20-2025 Discharge summary [facility] Medical Records Department [address] [place] [address] Instructions for Home/Discharge Instructions 04/01/25 1332 MR#: [id number] Acct: [id number] Name: TAMRA GUZMAN Rep #:[id number] : 1955 70 From: Neeraj Mcnulty MD PCP: Dr. Mike Aburto MD Status:REG S DC Discharge Instructions Diet Discharge Diet: No restrictions DC O2, CPAP, BIPAP needs Home O2 Discharge instructions: No Dressing / Incision Discharge Activity: Return to Normal Activity and May Not Drive (while taking narcotic pain medications.) Dressing / Incision Call your doctor if you observe: Fever of 101 or Higher Follow Up Care Please Follow Up With: Neeraj Mcnulty MD When: Call [phone] for an appointment Test Results: Test results from this visit will be discussed in further detail at your follow- up appointment, if applicable. Discharge Plan Admission Primary Reason for Your Visit: ESWL Attending Provider: Neeraj Mcnulty Primary Care Provider: Mike Aburto Chi Instructions Print Language: Stateless Discharge Orders/Prescriptions Prescriptions: New oxycodone 5 mg tablet 5 mg PO Q6H PRN (Reason: pain) 3 Days Qty: 14 0RF ciprofloxacin HCl 500 mg tablet 500 mg PO BID Qty: 10 0RF Continued famotidine 40 mg tablet 40 mg PO QHS amlodipine 5 MG tablet 5 mg PO DAILY prednisone 1 MG tablet 2 mg PO DAILY meclizine 25 mg tablet 25 mg PO 4X/DAY PRN PRN (Reason: Dizziness) Qty: 20 0RF hydroxychloroquine 200 mg tablet 200 mg PO BID loratadine [Claritin] 10 mg tablet 10 mg PO DAILY doxycycline hyclate 100 mg tablet 100 mg PO BID rosuvastatin 20 mg tablet 20 mg PO QHS prednisone 10 mg tablet 10 mg PO .SEE DIRECTIONS Referrals / Follow Up: Neeraj Mcnulty MD [Med Staff - Active Staff] - Mike Aburto Chi, MD [Primary Care Provider] - Disposition Disposition (needs filled in before D/C Order can be placed): Home, Self Care 04/01/25 1333Neeraj Mcnulty MD CC: Dr. Mike Aburto MD ~ Signed [facility]06-20-2025 Consult note Author [facility] Note Date/Time April 01, 2025 10:2 2am [facility] Medical Records Department [address] [place] [address] Pre-Anesthesia Evaluation 04/01/25 1014 MR#: [id number] Acct: [id number] Name: TAMRA GUZMAN Rep #:[id number] : 1955 70 From: Daljit Thomas MD PCP: Dr. Mike Aburto MD Status:REG S DC Y Race: C Location: [place] [address] ASA Classification* ASA Classification ASA Classification: 3 Assessment & Plan Anesthesia* Anesthesia Assessment Anesthesia Assessment: Discussed sedation and/or anesthesia options, risks, benefits, and alternatives with patient/parents/legal guardian/POA. Questions invited. The patient/parents/legal guardian/POA seems to understand and agrees to proceedwith anesthesia plan. Reviewed the physical assessment, medical history, allergy history and patient home medications list prior to surgery/procedure/anesthetic and documented any changes. Performed airway and anesthesia risk assessments. Anesthesia Type Anesthesia Type: General History Source History Obtained from:: Patient and Chart Anesthesia Focused Assessment* Temperature: 97.4 F Pulse Rate: 65 Blood Pressure: 126/89 Respiratory Rate: 16 Pulse Ox: 97 Oxygen Delivery Method: Room Air Airway Assessment Mouth opens: >3 cm Mallampati Score: III Teeth Condition: Caps/Crowns (Patient has a couple of caps. They are tight.) and Implants (Patient has 4 implants. They are all tight.) Neck Range of motion (ROM): Limited ROM Labs Anesthesia Preop lab: CBC WBC 6.3 K/mm3 (4.4-11.0) 03/14/25 12:15 03/14/25 RBC 5.18 M/mm3 (4.6-6.2) 03/14/25 12:15 03/14/25 Hgb 14.6 g/dL (13.0-16.5) 03/14/25 12:15 03/14/25 Hct 44.6 % (40-54) 03/14/25 12:15 03/14/25 Plt Count 147 K/mm3 (150-450) L 03/14/25 12:15 03/14/25 CHEMISTRY Potassium 4.5 mmol/L (3.3-5.1) 03/14/25 12:15 03/14/25 Sodium 141 mmol/L (133-145) 03/14/25 12:15 03/14/25 Magnesium 2.1 mg/dL (1.6-2.6) 11/03/23 04:50 11/03/23 BUN 20 mg/dL (4-19) H 03/14/25 12:15 03/14/25 Creatinine 1.02 mg/dL (0.70-1.20) 03/14/25 12:15 03/14/25 Glucose 91 mg/dL (70-99) 03/14/25 12:15 03/14/25 POC Glucose 114 mg/dL (74-106) H 11/02/23 05:32 11/02/23 TSH 1.040 uIU/mL (0.300-4.200) 03/14/25 12:15 12/07 COAG PT 12.3 SECONDS (11.7-14.9) 07/21/23 11:03 Pre-Assessment Diagnosis/Proposed Procedure Planned Operative Procedure(s): (R) ESWL Anesthesia History Anesthesia History - garnisher: Anesthesia History - garnisher Hx Hospitalization Yes: NEUROSTIMULATOR 03/30/25 09:32 REPLACED Any Problems With Anesthesia No 03/30/25 09:32 Cholinesterase deficiency No 03/30/25 09:32 You/Your Family Experience No 03/30/25 09:32 fever (hyperthermia) with Relationship Recent Exposure to Contagious No 04/01/25 09:50 Disease Does patient have nerve Yes 03/30/25 09:32 stimulator Patient instructed to have device shut off --Does patient have Pacemaker No 04/01/25 09:50 or ICD? When Was Last Pacemaker Check QUESTION #4 FULL TEXT: You/Your Family Experience fever (hyperthermia) with Anesthesia Last Oral Intake Last Oral intake: Last Oral Intake NPO since 21:00 04/01/25 09:50 Meds taken in AM with sips of Yes 04/01/25 09:50 water? Meds patient instructed to take am of surgery Any additional information?: Yes Meds taken in AM with sips of water?: Yes Meds patient instructed to take am of surgery: Amlodipine, doxycycline, prednisone 10mg PONV PONV - garnisher: PONV - garnisher Female No 03/30/25 09:32 HX of Motion Sickness Yes 03/30/25 09:32 HX of N/V After Surgery Yes 03/30/25 09:32 Non-Smoker Yes 03/30/25 09:32 Duration of Surgery greater No 03/30/25 09:32 than 60 minutes Number of Risk Factors 3 03/30/25 09:32 PONV Score Moderate Risk 03/30/25 09:32 Height & Weight Height & Weight: Anesthesia: Height & Weight Height 6 ft 04/01/25 09:50 Weight: 91.4 kg 04/01/25 09:50 Body Mass Index (BMI) 27.3 04/01/25 09:50 Respiratory Assessment Respiratory Assessment - garnisher: Respiratory Tract Infection Hx - garnisher Hx Respiratory Tract Infection No 03/30/25 09:32 STOP Sleep Apnea STOP Sleep Apnea - garnisher: STOP Sleep Apnea - garnisher Hx Hypertension No 03/30/25 09:32 Hx Sleep Apnea Yes 03/30/25 09:32 CPAP Yes 03/30/25 09:32 BIPAP No 03/30/25 09:32 Do you snore loudly (louder than talking or can be heard Do you often feel tired/ fatigued/ sleepy during daytime? Has anyone observed you stop breathing during sleep? STOP Results Positive 03/30/25 09:32 QUESTION #5 FULL TEXT : Do you snore loudly (louder than talking or can be heard through closed doors)? Tobacco Use History Tobacco Use History - garnisher: Tobacco Use History - garnisher Tobacco Use Smoking Status Never smoker 03/30/25 09:32 Hx Tobacco Use No 03/30/25 09:32 Years Smoking Packs Smoked per Day Smoking Cessation Date was within the last 15 years Hx Smoking Cessation Date Hx Smoking Cessation Counseling Hematologic Medial History Hematologic Hx - garnisher: Hematologic Medical Hx - special investigator Hx of Blood Transfusion No 03/30/25 09:32 Hx of Transfusion in last 3 No 03/30/25 09:32 Months Date of Last Transfusion (if within last 3 months) Ever experience any problems No 03/30/25 09:32 with transfusion(s)? Specify any problems Hx of Preganancy in last 3 N/A 03/30/25 09:32 Months Nurse Filling Out Transfusion VCHRISTIN 03/30/25 09:32 & Questions: Date: 03/30/25 03/30/25 09:32 Time: 09:33 03/30/25 09:32 Patient unable to answer at this time (ie. confused, unrespo /Reproduction History /Reproductive History - garnisher: /Reproductive Hx- garnisher Hx Now No 03/30/25 09:32 Gestational Age (in weeks): EDC: Hx Hx Para Hx Section SAB No 03/30/25 09:32 Active Medications Active Medications: Current Medications Generic Name Dose Route Start Last Admin Trade Name Freq PRN Reason Stop Dose Admin Cefazolin Sodium 2 gm/ Sodium 110 mls @ 150 mls/hr 04/01/25 11:15 Chloride IV 04/01/25 11:58 INTRAOP ONE Lactated Ringer's 1,000 mls @ 15 mls/hr 04/01/25 09:45 04/01/25 09:58 IV 15 mls/hr .Q48H CHANDAN Administration PFSH Medical History Wears hearing aid Cancer History of steroid therapy Rheumatoid arthritis Arthritis Kidney stones High cholesterol Back pain History of IBS Gastric reflux Non-smoker CPAP (continuous positive airway pressure) dependence Sleep apnea History of stress test Cardiology follow-up encounter History of rheumatic fever Hereditary hearing loss Bilateral sensorineural hearing loss Acute maxillary sinusitis, unspecified Cochlear implant in place Non-pressure chronic ulcer of right calf with fat layer exposed Peripheral nerve neurostimulator device in situ Traumatic open wound of right lower leg Chronic cough Hypertension Hyperlipidemia Polymyalgia rheumatica Spinal stenosis at L4-L5 level Hearing loss Sleep apnea treated with continuous positive airway pressure (CPAP) Mild cognitive impairment Alzheimer's disease Dysphagia Hiatal hernia Esophageal stenosis Pancreatic cyst GERD (gastroesophageal reflux disease) Home Medications ?Medication ?Instructions ?Recorded ?Last Taken ?Type amlodipine 5 mg tablet 5 mg PO DAILY 05/27/2004/01 09:00 History prednisone 1 mg tablet 2 mg PO DAILY 05/27/2004/01 History famotidine 40 mg tablet 40 mg PO QHS 10/27/23 History meclizine 25 mg tablet 25 mg PO 4X/DAY PRN PRN Dizz iness 11/02/23 Unknown Rx #20 tabs doxycycline hyclate 100 mg tablet 100 mg PO BID 04/01/25 History hydroxychloroquine 200 mg tablet 200 mg PO BID 5 Unknown History loratadine 10 mg tablet (Claritin) 10 mg PO DAILY 03/13 06/06 Unknown History prednisone 10 mg tablet 10 mg PO .SEE DIRECTIONS Unknown History rosuvastatin 20 mg tablet 20 mg PO QHS 03/30/25 Unknow n History Allergy/AdvReac Type Severity Reaction Status Date / Time No Known Allergies Allergy Verified 04/01/25 09:46 Surgical History Hx of vasectomy Hx of rotator cuff surgery Hx of knee surgery History of cochlear implant History of total bilateral knee replacement Social History Smoking Status: Never smoker alcohol intake: never substance use type: does not use caffeine: No Review of Systems (Anesthesia) ROS Narrative System reviewed and no additional complaints, except as documented. 04/01/25 1022 <Electronically signed by Daljit rothman MD> Date _ Daljit Thomas MD Cosigner Signature: Date CC: ~ Signed [facility] Work Phone: 1(954) 482-867806-20-2025 Consult note [facility] Medical Records Department [address] [place] [address] Pre-Anesthesia Evaluation 04/01/25 1014 MR#: [id number] Acct: [id number] Name: TAMRA GUZMAN Rep #:[id number] : 1955 70 From: Daljit Thomas MD PCP: Dr. Mike Aburto MD Status:REG S DC Y Race: C Location: [place] [address] ASA Classification* ASA Classification ASA Classification: 3 Assessment & Plan Anesthesia* Anesthesia Assessment Anesthesia Assessment: Discussed sedation and/or anesthesia options, risks, benefits, and alternatives with patient/parents/legal guardian/POA. Questions invited. The patient/parents/legal guardian/POA seems to understand and agrees to proceedwith anesthesia plan. Reviewed the physical assessment, medical history, allergy history and patient home medications list prior to surgery/procedure/anesthetic and documented any changes. Performed airway and anesthesia risk assessments. Anesthesia Type Anesthesia Type: General History Source History Obtained from:: Patient and Chart Anesthesia Focused Assessment* Temperature: 97.4 F Pulse Rate: 65 Blood Pressure: 126/89 Respiratory Rate: 16 Pulse Ox: 97 Oxygen Delivery Method: Room Air Airway Assessment Mouth opens: >3 cm Mallampati Score: III Teeth Condition: Caps/Crowns (Patient has a couple of caps. They are tight.) and Implants (Patient has 4 implants. They are all tight.) Neck Range of motion (ROM): Limited ROM Labs Anesthesia Preop lab: CBC WBC 6.3 K/mm3 (4.4-11.0) 03/14/25 12:15 03/14/25 RBC 5.18 M/mm3 (4.6-6.2) 03/14/25 12:15 03/14/25 Hgb 14.6 g/dL (13.0-16.5) 03/14/25 12:15 03/14/25 Hct 44.6 % (40-54) 03/14/25 12:15 03/14/25 Plt Count 147 K/mm3 (150-450) L 03/14/25 12:15 03/14/25 CHEMISTRY Potassium 4.5 mmol/L (3.3-5.1) 03/14/25 12:15 03/14/25 Sodium 141 mmol/L (133-145) 03/14/25 12:15 03/14/25 Magnesium 2.1 mg/dL (1.6-2.6) 11/03/23 04:50 11/03/23 BUN 20 mg/dL (4-19) H 03/14/25 12:15 03/14/25 Creatinine 1.02 mg/dL (0.70-1.20) 03/14/25 12:15 03/14/25 Glucose 91 mg/dL (70-99) 03/14/25 12:15 03/14/25 POC Glucose 114 mg/dL (74-106) H 11/02/23 05:32 11/02/23 TSH 1.040 uIU/mL (0.300-4.200) 03/14/25 12:15 12/07 COAG PT 12.3 SECONDS (11.7-14.9) 07/21/23 11:03 Pre-Assessment Diagnosis/Proposed Procedure Planned Operative Procedure(s): (R) ESWL Anesthesia History Anesthesia History - garnisher: Anesthesia History - garnisher Hx Hospitalization Yes: NEUROSTIMULATOR 03/30/25 09:32 REPLACED Any Problems With Anesthesia No 03/30/25 09:32 Cholinesterase deficiency No 03/30/25 09:32 You/Your Family Experience No 03/30/25 09:32 fever (hyperthermia) with Relationship Recent Exposure to Contagious No 04/01/25 09:50 Disease Does patient have nerve Yes 03/30/25 09:32 stimulator Patient instructed to have device shut off --Does patient have Pacemaker No 04/01/25 09:50 or ICD? When Was Last Pacemaker Check QUESTION #4 FULL TEXT: You/Your Family Experience fever (hyperthermia) with Anesthesia Last Oral Intake Last Oral intake: Last Oral Intake NPO since 21:00 04/01/25 09:50 Meds taken in AM with sips of Yes 04/01/25 09:50 water? Meds patient instructed to take am of surgery Any additional information?: Yes Meds taken in AM with sips of water?: Yes Meds patient instructed to take am of surgery: Amlodipine, doxycycline, prednisone 10mg PONV PONV - garnisher: PONV - garnisher Female No 03/30/25 09:32 HX of Motion Sickness Yes 03/30/25 09:32 HX of N/V After Surgery Yes 03/30/25 09:32 Non-Smoker Yes 03/30/25 09:32 Duration of Surgery greater No 03/30/25 09:32 than 60 minutes Number of Risk Factors 3 03/30/25 09:32 PONV Score Moderate Risk 03/30/25 09:32 Height & Weight Height & Weight: Anesthesia: Height & Weight Height 6 ft 04/01/25 09:50 Weight: 91.4 kg 04/01/25 09:50 Body Mass Index (BMI) 27.3 04/01/25 09:50 Respiratory Assessment Respiratory Assessment - garnisher: Respiratory Tract Infection Hx - garnisher Hx Respiratory Tract Infection No 03/30/25 09:32 STOP Sleep Apnea STOP Sleep Apnea - garnisher: STOP Sleep Apnea - garnisher Hx Hypertension No 03/30/25 09:32 Hx Sleep Apnea Yes 03/30/25 09:32 CPAP Yes 03/30/25 09:32 BIPAP No 03/30/25 09:32 Do you snore loudly (louder than talking or can be heard Do you often feel tired/ fatigued/ sleepy during daytime? Has anyone observed you stop breathing during sleep? STOP Results Positive 03/30/25 09:32 QUESTION #5 FULL TEXT : Do you snore loudly (louder than talking or can be heard through closeddoors)? Tobacco Use History Tobacco Use History - garnisher: Tobacco Use History - garnisher Tobacco Use Smoking Status Never smoker 03/30/25 09:32 Hx Tobacco Use No 03/30/25 09:32 Years Smoking Packs Smoked per Day Smoking Cessation Date was within the last 15 years Hx Smoking Cessation Date Hx Smoking Cessation Counseling Hematologic Medial History Hematologic Hx - garnisher: Hematologic Medical Hx - special investigator Hx of Blood Transfusion No 03/30/25 09:32 Hx of Transfusion in last 3 No 03/30/25 09:32 Months Date of Last Transfusion (if within last 3 months) Ever experience any problems No 03/30/25 09:32 with transfusion(s)? Specify any problems Hx of Preganancy in last 3 N/A 03/30/25 09:32 Months Nurse Filling Out Transfusion VCHRISTIN 03/30/25 09:32 & Questions: Date: 03/30/25 03/30/25 09:32 Time: 09:33 03/30/25 09:32 Patient unable to answer at this time (ie. confused, unrespo /Reproduction History /Reproductive History - garnisher: /Reproductive Hx- garnisher Hx Now No 03/30/25 09:32 Gestational Age (in weeks): EDC: Hx Hx Para Hx Section SAB No 03/30/25 09:32 Active Medications Active Medications: Current Medications Generic Name Dose Route Start Last Admin Trade Name Freq PRN Reason Stop Dose Admin Cefazolin Sodium 2 gm/ Sodium 110 mls @ 150 mls/hr 04/01/25 11:15 Chloride IV 04/01/25 11:58 INTRAOP ONE Lactated Ringer's 1,000 mls @ 15 mls/hr 04/01/25 09:45 04/01/25 09:58 IV 15 mls/hr .Q48H CHANDAN Administration PFSH Medical History Wears hearing aid Cancer History of steroid therapy Rheumatoid arthritis Arthritis Kidney stones High cholesterol Back pain History of IBS Gastric reflux Non-smoker CPAP (continuous positive airway pressure) dependence Sleep apnea History of stress test Cardiology follow-up encounter History of rheumatic fever Hereditary hearing loss Bilateral sensorineural hearing loss Acute maxillary sinusitis, unspecified Cochlear implant in place Non-pressure chronic ulcer of right calf with fat layer exposed Peripheral nerve neurostimulator device in situ Traumatic open wound of right lower leg Chronic cough Hypertension Hyperlipidemia Polymyalgia rheumatica Spinal stenosis at L4-L5 level Hearing loss Sleep apnea treated with continuous positive airway pressure (CPAP) Mild cognitive impairment Alzheimer's disease Dysphagia Hiatal hernia Esophageal stenosis Pancreatic cyst GERD (gastroesophageal reflux disease) Home Medications ?Medication ?Instructions ?Recorded ?Last Taken ?Type amlodipine 5 mg tablet 5 mg PO DAILY 05/27/2004/01 09:00 History prednisone 1 mg tablet 2 mg PO DAILY 05/27/2004/01 History famotidine 40 mg tablet 40 mg PO QHS 10/27/23 History meclizine 25 mg tablet 25 mg PO 4X/DAY PRN PRN Dizz iness 11/02/23 Unknown Rx #20 tabs doxycycline hyclate 100 mg tablet 100 mg PO BID 04/01/25 History hydroxychloroquine 200 mg tablet 200 mg PO BID 5 Unknown History loratadine 10 mg tablet (Claritin) 10 mg PO DAILY 03/13 06/06 Unknown History prednisone 10 mg tablet 10 mg PO .SEE DIRECTIONS Unknown History rosuvastatin 20 mg tablet 20 mg PO QHS 03/30/25 Unknow n History Allergy/AdvReac Type Severity Reaction Status Date / Time No Known Allergies Allergy Verified 04/01/25 09:46 Surgical History Hx of vasectomy Hx of rotator cuff surgery Hx of knee surgery History of cochlear implant History of total bilateral knee replacement Social History Smoking Status: Never smoker alcohol intake: never substance use type: does not use caffeine: No Review of Systems (Anesthesia) ROS Narrative System reviewed and no additional complaints, except as documented. 04/01/25 1022 lorna CAMARENA> Date _ Daljit Thomas MD Cosigner Signature: Date CC: ~ Signed [facility]06-13-2025 Radiology Diagnostic study note [facility] [facility] [address] [place] [address] Abdomen/Pelvis without Cont MR#: [id number] Acct: [id number] Name: MEGANTAMRA BLAZE Rep #: [id number] : 1955 M 70 From: Jadon Chowdary MD PCP: Dr. Mike Aburto MD Status: LUCILA MONTES Study:Abdomen/Pelvis without Cont Date of Exa m: 03/25/25 Exam# [id number] Ordering Dr: Mike Aburto MD PROCEDURE: ABDOMEN/PELVIS [...] Degenerative changes of the lumbar spine. Spinal cordstimulator device is seen. CT/Abdomen/Pelvis without Cont IMPRESSION: Small bilateral nonobstructive intrarenal calculi more prominent on the right side. No evidence of ureteral obstruction at this time. Borderline splenomegaly. Stable right renal cyst. Diffuse thickening of the urinary bladder wall. Cystitis should be ruled out. OVERALL FINAL ASSESSMENT: . Reading Location: [id number] CC: Dr. Mike Aburto MD ~ [employer] Worker: Signed [facility]05-13-2025 NoteNeurosurgery interval progress note. Patient presented today for removal and replacement of his spinal cord stimulator system which was malfunctioning, and the malfunctioning was quite impactful as the patient requires MRI brain and pancreas, which cannot be done if the system is malfunctioning. However this morning the system was interrogated by sales representative raw fibers from [employer] and system is now functioning normally. Therefore his planned surgery will be canceled and he will be discharged to home. If he should have issues in the future with his system he will call me and then we can reassess as to whether or not a replacement is indicated. Plan to discharge patient today. AUTHENTICATED BY ANDREW GUZMAN, ON 02/22/2025 12:35:13[facility]05-05-2025 NotePre-Operative H&P Assessment and Plan DEMOND (obstructive sleep [...] the patient: (1 point (more content not included)...[facility]04-18-2025 History of Present illness Narrative* Andrew Guzman MD - 01/28/2025 3:00 PM EDT Malfunction of retained spinal cord stimulator. RAGHAV Browning is a 69-year-old male well-known to me who underwent with me on 11/18/2024 insertion of a permanent spinal cord stimulator. Unfortunately patient in postoperative testing was noted to have high impedance of the most superior electrode leads on the right, which is precluding the ability to obtainMRI. The patient requires MRI scanning of other parts of his body including his pancreas and brain,but he cannot have his MRI because of high impedance and inability to convert the system to MRI mode. Plain spine films were performed on 01/05/2025 the thoracic and lumbar spine which I have independently reviewed on a computerized workstation, my interpretation follows. The patient has stable appearance of his electrode from the T7-T8 level as compared to intraoperative films of 11/18/2024. He hasa significant dextroscoliosis of the lumbar spine. The patient continues to have multilevel spondylosis and scoliosis without new compression fractures. He states that he continues to have significant axial lumbar pain despite the stimulator being on. He also has right sciatica. He was very happy with his initial spinal cord stimulator which was placed in [place], with cylindrical leads, michael the system failed which required the replacement [...] reconstructive spinal surgery. He is managed by superintendent electric power in [facility]. He states his manifestations of polymyalgia rheumatica are pain everywhere. Medications reviewed in the DEC. Allergies to bee pollen. Psychosocial review. 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 He lives in the [facility] with his . Physical examination. Patient [...] a possibility of any implanted by medical services assistant and I have once again reminded him and his of this problem. There is no guarantee that removing the current system or replacing it with a new system will give him the degree of relief thathe would seek. However I still believe that this is the most appropriate and straightforward means of potentially giving him relief as opposed to direct reconstructive spinal surgery which would likely result in thoracolumbosacral fusion based on his plain spine films. The patient wishes to proceedwith explantation of his current entire system. I [...] understands once again very well the risk-benefit analysisincluding the very remote chances of stroke DVT [...] above. Andrew Guzman MD documented in this [id number] NoteMalfunction of retained spinal cord stimulator. HPI Nam is a 69-year-old male [place] who underwent with me on 11/18/2024 insertion [...] initial spinal cord stimulator whichwas placed in [place], with cylindrical leads, but then the system [...] reconstructive spinal surgery. He is managed by superintendent electric power in [facility]. He states his manifestations of polymyalgia rheumatica are pain everywhere. Medications reviewed in the DEC. Allergies to bee pollen. Psychosocial review. 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 He lives in the [facility] with his . Physical examination. Patient [...] a possibility of any implanted by medical services assistant and I have once again reminded [...] from prior procedures, which (more content not included)...[facility]03-26-2025 NoteEmily from [employer] saw patient in clinic today to review [...] Views. AUTHENTICATED BY ROBBY CASTREJON, ON 01/28/2025 15:14:35[facility] 01-05-2025 History of Present illness Narrative* Robby Castrejon PA-C - 01/05/2025 2:58 PM EDT Chanell from [employer] saw patient in clinic today to review [...] care. Continue BLT restrictions. documented in this [id number] History of Present illness Narrative* Robby Castrejon PA-C - 01/05/2025 2:58 PM EDT Chanell from [employer] saw patient in clinic today to review [...] PM: 01/05/2025 x-ray thoracic and lumbar scans re- reviewed including review of radiologist interpretation. There is no evidence of neurostimulator migration or change to location on the thoracic lumbar x-ray films completed 01/05/2025 when compared to 11/18/2024 XR OR T-Spine 2 Views. documented in this [id number] Instructions* Patient Instructions* Robby Castrejon PA-C - 12/15/2024 11:53 AM EST Clinically stable. Recommend he try turning stimulator up to setting of 5 and if no improvement after several days to contact Chanell hall [employer] to discuss settings. The erythema to his thoracic surgical site is markedly improved. Pt advised to have him or his spouse monitor site for any changes, immediately notify office/seek emergency department treatment with any increased erythema, or if swelling discharge dehiscence fever chills intractable pain or weakness. Offered patient follow up prior to his trip to [place] de[place] and he opts to follow up shortly on his return in January. Call with any questions or concerns in the interim. documented in this [id number] NoteNeurosurgery Progress Note Assessment/Plan: Thoracic 9-10 Laminectomy, Removal [...] after several days to contact Chanell hall [employer] to discuss settings. The erythema to his thoracic surgical site is markedly improved. Pt advised to have him or his spouse monitor site for any changes, immediately notify office/seek emergency department treatment with any increased erythema, or if swelling discharge dehiscence fever chills intractable pain or weakness. Offered patient follow up prior to his trip to [place] de[place] and he opts to follow up [...] leg raise Normal gait AUTHENTICATED BY ROBBY CASTREJON ON 12/15/2024 11:53:31[facility] 12-15-2024 History of Present illness Narrative* Robby Castrejon PA-C - 12/15/2024 11:45 AM EST Neurosurgery Progress Note Assessment/Plan: Thoracic 9-10 Laminectomy, [...] axial lower lumbar back pain past 4 days.He states he recently turned his settings on the spinal cord stimulator from 11 to 4. He denies anyfever chill or surgical site concerns including no discharge to surgical sites reported. He reportsno lower extremity pain numbness or tingling. He [...] verbal consent. There is no significant tenderness tosurgical sites or midline. There is no discharge [...] leg raise Normal gait documented in this [id number] History of Present illness Narrative* Zuly Good RN - 12/09/2024 8:27 AM EST Presented today for mid thoracic incision check. Area around incision was slightly reddened, no open areas noted, no drainage, no fever or chills. He took his last antibiotic this am. Updated Lebron Lucía TARIQ, he ordered another round of antibiotics and CBC, CRP, ESR. Patient will follow up with him on Friday 12/15. Understands to call with any drainage, signs of infection, or any concerns. documented in this [id number] NoteReviewed nursing notes today, will extend bactrim and see him back in my clinic next Friday12/15/24 sooner if needed. Can use benadryl ointment for pruritis. Reports no side effect to bactrim per RN. Will also order CBC ESR CRP to be completed today. AUTHENTICATED BY ROBBY CASTREJON, ON 12/08/2024 11:50:[address] [place] [address] 12-08-2024 History of Present illness Narrative* Robby Castrejon PA-C - 12/08/2024 11:44 AM EST Reviewed nursing notes today, will extend bactrim and see him back in my clinic next Friday12/15/24 sooner if needed. Can use benadryl ointment for pruritis. Reports no side effect to bactrim per RN. Will also order CBC ESR CRP to be completed today. documented in this [id number] Instructions* Patient Instructions* Robby Castrejon PA-C - 12/02/2024 2:07 PM EST Clinically stable. Post op pain is negligible, no new deficits. There is slight erythema and fluctuance to thoracic midline surgery site. Will prescribe bactrim for 5 days. Patient denies sulfa allergy. Recommend to take medication with food and probiotic. Follow up next week for surgery site checkwith RN. Follow up with me in 4 weeks, sooner if needed. Explained to immediately notify office/seek emergency department treatment with any increased erythema, or if swelling discharge dehiscence fever chills intractable pain or weakness. Maintain 5 lb BLT restriction. Walk as tolerated. Call withany questions. documented in this [id number] NoteNeurosurgery Progress Note Assessment/Plan: Thoracic 9-10 Laminectomy, Removal [...] Neurosurgery Subjective: Presents for post operative appointment. [employer] neuromodulator sales representative raw fibers at appointment too with patient and states [...] leg raise Normal gait AUTHENTICATED BY ROBBY CASTREJON ON 12/02/[facility]24 [facility] History of Present illness Narrative* Robby Castrejon PA-C - 12/02/2024 12:56 PM EST Neurosurgery Progress Note Assessment/Plan: Thoracic 9-10 Laminectomy, [...] Follow up next week for surgery site checkwith RN. Follow up with me in 4 weeks, sooner if needed. Explained to immediately notify office/seek emergency department treatment with any increased erythema, or if swelling discharge dehiscence fever chills intractable pain or weakness. Maintain 5 lb BLT restriction. Walk as tolerated. Call withany questions. Robby Castrejon PA-C [facility] Neurosurgery Subjective: Presents for post operative appointment. [place] neuromodulator sales representative raw fibers at appointment too with patient and states [...] midline incision CDI no complication. Thoracic midline incisionsite is slightly erythematous with fluctuance and slight swelling over site. no discharge dehiscence or tenderness. Skin: Warm and dry MSK: Manual Muscle Testing Muscle Group Right Left Hip Flexion 5 5 Knee Extension 5 5 Knee Flexion 5 5 Dorsiflexion 5 5 Plantar Flexion 5 5 EHL 5 5 Sensation intact Negative straight leg raise Normal gait documented in this [id number] History of Present illness Narrative* Zuly Good RN - 11/26/2024 11:28 AM EST Patient presents today for post op incision check. Aquacel dressings removed from mid thoracic, lumbar and right flank areas. Thoracic incision approximated, some scabbing noted. No drainage, rednessnoted. Some irritation noted to outer skin where dressing had been. Lumbar incision approximated. Small amount of drainage noted after dressing removal, no redness or edema noted. Right flank incision approximated, no drainage, redness, or edema noted. Bruising noted around that area. Areas cleanedwith chloraprep, allowed to dry. Gauze dressing applied to lumbar incision, other left open to air.Understands to call with any drainage, signs of infection, or any concerns. documented in this [id number] NoteDISCHARGE SUMMARY Patient: Tamra Guzman Date of : 1955 Site: [facility] Provider: Mike Aburto Chi, MD Admit Date: [...] malfunctioned. He has been interrogated by a sales representative raw fibers from [employer] and noted to have multiple faults. Because [...] therapy and stimulator was programmed by device sales representative raw fibers. He will discharge home today with close [...] Family Provider: Mike Aburto Chi, MD, Address: [address] [place] [id number] Follow Up: No follow-up provider specified. Additional Information: Patient instructions, including activity, were given to the patient/family at discharge. Please see the After Visit Summary in the electronic medical record for details. Time spent on discharge: < 30 minutes Completed by: Robby Castrejon PA-C on 11/19/24, 3:13 PM AUTHENTICATED BY ROBBY CASTREJON, ON 11/19/2024 15:14:[address] [place] [address] 11-19-2024 Hospital course Narrative* Robby Castrejon PA-C - 11/19/2024 3:13 PM EST DISCHARGE SUMMARY Patient: Tamra Guzman Date of : 1955 Site: [facility] Provider: Mike Aburto Chi, MD Admit Date: 11/18/2024 Discharge Date/Time: 11/19/24 Midday Disposition: Home Clinical Summary Hospital Course: Tamra Guzman is a 69-year-old male who had at an outside institution a spinal cord stimulator system placed. He had excellent relief of his pain with 100% pain relief by his recollection from hisaxial lumbosacral spinal pain and leg pain. However, the system malfunctioned. He has been interrogated by a sales representative raw fibers from [employer] and noted to have multiple faults. Because of these faults, the patient also is precluded from undergoing MRI scanning. Because of the faults in the systemand the poor functionality, the patient requests removal [...] therapy and stimulator was programmed by device sales representative raw fibers. He will discharge home today with close [...] Family Provider: Mike Aburto Chi, MD, Address: [address] [place] [address] Follow Up: No follow-up provider specified. Additional Information: Patient instructions, including activity, were given to the patient/family at discharge. Please seethe After Visit Summary in the electronic medical record for details. Time spent on discharge: < 30 minutes Completed by: Robby Castrejon PA-C on 11/19/24, 3:13 PM documented in this [id number] Hospital Note* Hospital Course - Robby Castrejon PA-C - 11/19/2024 3:11 PM EST Tamra Guzman is a 69-year-old male who had at an outside institution a spinal cord stimulator system placed. He had excellent relief of his pain with 100% pain relief by his recollection from hisaxial lumbosacral spinal pain and leg pain. However, the system malfunctioned. He has been interrogated by a sales representative raw fibers from [employer] and noted to have multiple faults. Because of these faults, the patient also is precluded from undergoing MRI scanning. Because of the faults in the systemand the poor functionality, the patient requests removal [...] therapy and stimulator was programmed by device sales representative raw fibers. He will discharge home today with close follow up next week. [id number] Miscellaneous Notes* Hospital Course - Robby Castrejon PA-C - 11/19/2024 3:11 PM EST Tamra Guzman is a 69-year-old male who had at an outside institution a spinal cord stimulator system placed. He had excellent relief of his pain with 100% pain relief by his recollection from hisaxial lumbosacral spinal pain and leg pain. However, the system malfunctioned. He has been interrogated by a sales representative raw fibers from [employer] and noted to have multiple faults. Because of these faults, the patient also is precluded from undergoing MRI scanning. Because of the faults in the systemand the poor functionality, the patient requests removal [...] therapy and stimulator was programmed by device sales representative raw fibers. He will discharge home today with close follow up next week. * Plan of Care - Bj Reynoso, PT - 11/19/2024 9:04 AM EST Physical Therapy Plan of Care Certification Note Medicare billing rules require the provider to review and certify the physical therapy plan of carefor patients in observation or outpatient status. This co- signature is to electronically certify that the above-named [...] perform stand-pivot transfer with modified independence , approriatedevice to improve functional mobility and safety. Disciplines: [...] and descend at least 1+ stairs with non- reciprocal technique with no rails and assistive device [...] - 11/19/2024 3:11 PM EST I attest. * Plan of Care - Pat Dasilva RN - 11/18/2024 5:03 PM EST Problem: Actual or potential alteration in health [...] level of psychosocial functioning Outcome: Partially Met * Brief Op Note - Andrew Guzman MD - 11/18/2024 2:32 PM EST Brief Post Operative Note Patient Name: Tamra Guzman : 1955 (69 y.o.) Date of Service: 11/18/2024 CSN: [id number] Procedure(s): Thoracic 9-10 Laminectomy, Removal Retained SCS Electrodes, Insertion of Paddle Lead Electrode via 9-10 laminectomy, Removal of Left Flank IPG, insertion of new Left Flank IPG. Pre-Operative Diagnoses: * Malfunction of spinal cord stimulator, initial encounter [T85.192A] Post-Operative Diagnoses: * Malfunction of spinal cord stimulator, initial encounter [T85.192A] Surgeons and Role: * Andrew Guzman MD - Primary Anesthesiologist: Ari Hernandez MD MANAGER SHIPPING: Brown Young CRNA Accessories Repairer: Lisandro Starr RN Lawn Mower Operator: Lashae Lopez, TECHNOLOGIST Accessories Repairer Relief: Belkis Macias RN Scrub Person: Celia Castillo ST Anesthesia Specialist: Andra Elizabeth Reconciling Clerk: Nadia Christine Wendy E, PSA Scrub Person Assist: Nadia Aquino RN Operative findings: Epidural scarring. Intra and immediate post-operative complications: none Type of anesthesia used: General Estimated blood loss: 300 mL Estimated urine output: Refer to surgical log Specimen(s): * No specimens in log * Implant(s): Implant Name Type Inv. Item Serial No. Lab Technician Lot No. [id number] No. Used Action HEMOSTAT 2 X 4IN SURGICEL FIBRILLAR - [id number] HEMOSTAT 2 X 4IN SURGICEL FIBRILLAR ETHICON [id number] N/A 1 Implanted HEMOSTAT 8 X 12.5CM X 10MM SURGIFOAM GELATIN SPONGE - [id number] HEMOSTAT 8 X 12.5CM X 10MM SURGIFOAM GELATIN SPONGE ETHICON N/A 1 Implanted HEMOSTAT 4 X 8IN SURGICEL ORIGINAL ABSORBABLE - [id number] HEMOSTAT 4 X 8IN SURGICEL ORIGINAL ABSORBABLE Ho [employer] Ho [id number] N/A 1 Implanted LEAD 60CM PENTA - [id number] LEAD 60CM PENTA [id number] ST TAMARA HI N/A 1 Implanted SEALANT 5ML HEMOSTATIC MATRIX FAST PREP FLOSEAL W/ RECOTHROM - [id number] SEALANT 5ML HEMOSTATIC MATRIX FAST PREP FLOSEAL W/ RECOTHROM SHAHID BIO [id number] N/A 1 Implanted SEALANT 5ML HEMOSTATIC MATRIX FAST PREP FLOSEAL W/ RECOTHROM - [id number] SEALANT 5ML HEMOSTATIC MATRIX FAST PREP FLOSEAL W/ RECOTHROM SHAHID BIO [id number] N/A 1 Implanted GENERATOR NEUROSTIMULATOR IMPLANTABLE XR5 PROCLAIM - [id number] GENERATOR NEUROSTIMULATOR IMPLANTABLE XR5 PROCLAIM [id number] ST TAMARA HI N/A 1 Implanted Drain(s): * No LDAs found * Wound(s): Wound 11/18/24 Surgical Wound Thoracic Spine (Active) Dressing Status Clean;Dry;Intact 11/18/24 1426 Drainage Amount None 11/18/24 1426 Wound Closure Sutures;Surgical Adhesive 10/22/24 0002 Andrew Guzman MD 11/18/2024 2:32 PM * Op Note - Andrew Guzman MD - 11/18/2024 12:43 PM EST TAMRA GUZMAN [facility] [id number] 1955 DATE 11/18/2024 OPERATIVE REPORT SURGEON ANDREW [...] 100% pain relief by his recollection from hisaxial lumbosacral spinal pain and leg pain. However, the system has now malfunctioned. He has been interrogated by a sales representative raw fibers from [employer] and noted to have multiple faults. Because of these faults, the patient also is precluded from undergoing MRI scanning. Because of the faults in the system and the poor functionality, the patient requests removal of the system as well as replacement with a new spinal cord stimulator system. In addition, he would like his left IPG to be relocatedmore cephalad so it does not interfere with his beltline. PROCEDURE IN DETAIL The procedure was performed in OR #2. The patient was intubated, and general anesthesia was established. An appropriate time-out was performed with Neurosurgery, Anesthesiology, and nursing teams, and all agreed with this patient's identity and planned procedure. After intubation and establishing ge neral anesthesia, he was carefully rotated in the [...] the T9-T10 laminar areas in the midline. Po ints of bleeding were controlled with bipolar cautery. Monopolar cautery was used to dissect down through the thoracic dorsal fascia, exposing the lamina of T9 and T10. A self-retaining retractor wasplaced. Throughout the case, small amounts of Floseal, [...] significant scarring in the epidural space, and the2 midline electrodes were noted to be scarred [...] anchor boots that had been left previously. [place] boots were freed from anchor sutures, and the leads were then once again removed, from the laminectomy site by gently pulling to this new incision site. A third incision was then made, reopening the pre-existing scar in theleft flank. The pseudocapsule surrounding the IPG was opened, and the IPG was then explanted. The wires were cut at the IPG, and then these wires were then pulled through to the L2 incision. All aspects and components of this spinal cord stimulator system were removed and then discarded. Next, the p seudocapsule was closed with interrupted 0 Vicryl suture [...] the location of this electrode. This paddle electrode'smost superior row leads was at the T7-8 [...] from this laminectomy site to the IPG site.A new Driver [employer] IPG was brought into the field, and then leads were inserted into the headers. Initial interrogation by the Driver sales representative raw fibers did demonstrate 3 high impedance contacts, but w ith time, this receded to a single high [...] condition. ANDREW GUZMAN MD D 11/18/2024 14:23 [id number] T 11/18/2024 15:38 [facility] documented in this [id number] Plan of care note* Plan of Care - Bj Reynoso, PT - 11/19/2024 9:04 AM EST Physical Therapy Plan of Care Certification Note Medicare billing rules require the provider to review and certify the physical therapy plan of carefor patients in observation or outpatient status. This co- signature is to electronically certify that the above-named [...] perform stand-pivot transfer with modified independence , approriatedevice to improve functional mobility and safety. Disciplines: [...] and descend at least 1+ stairs with non- reciprocal technique with no rails and assistive device [...] - 11/19/2024 3:11 PM EST I attest. [id number] NoteAdmitted with these risk variables:None. Please see assessment [...] drainage. AUTHENTICATED BY ANDREW GUZMAN, ON 11/19/2024 08:44:27[facility]02-07-2025 History of Present illness Narrative* Andrew Guzman MD - 11/19/2024 8:42 AM EST Admitted with these risk variables:None. Please see assessment and plan for further details. Impression. Postop day #1, removal and replacement of spinal cord stimulator system via T9-10 laminectomy. Plan. Will program system today. Will continue to work with physical therapy. If pain is controlledadequately patient we discharged home. Follow-up in neurosurgery clinic in 1 week Subjective. Patient denies dyspnea or chest pain. He has some moderate thoracic pain and left flankpain at IPG site. Objective. Awake alert oriented pleasant male. Speech fluent. Straight leg raising negative cause sciatica. Power at the iliopsoas glutei quadricep hamstrings hip AB adductor's and dorsi and plantar flexors of the feet are 5-5 and equal. Incision sites clean flat and dry with no drainage. documented in this [id number] Consult note* Bj Reynoso, PT - 11/19/2024 8:00 AM EST Physical Therapy PHYSICAL THERAPY EVALUATION and TREATMENT NOTE PHYSICAL THERAPY EVALUATION Skilled Therapy Needs After Discharge Anticipate Resolution of Current Assessment Limitations Including: Pain, Mechanical Barriers, Social Support Are insurance manager Therapy Services Needed After Discharge: Yes Intensity of insurance manager Therapy: 2-3 days per week Anticipated Duration of insurance manager Therapy: Duration 10 - 30 days PT [...] result in limitations of Gait, Functional Transfers, Stair- Climbing, Safety, Activity Tolerance. These impairments result in [...] Static: Stand by assist, Contact guard assist Property Insurance Inspector - Standing Static: wheeled walker Loss of Balance- Standing Static: intermittent Standing Balance - Dynamic: Stand by assist, Contact guard assist Property Insurance Inspector - Standing Dynamic: wheeled walker Loss of Balance- Standing Dynamic: intermittent Bed Mobility Rolling: Stand by assist, Head of bed flat (needing increased time and effort) Supine to Sit: Supervision, Head of bed flat (needing increased time and effort) Property Insurance Inspector: bedrails Transfers Sit to Stand: Stand by assist, Contact guard assist Property Insurance Inspector: wheeled walker Toilet Transfers: Stand by assist, [...] reliance on upper extremities, forward flexed, decreased riccardo(steps per minute) Gait Loss(es) of Balance: intermittent, [...] Hand-held showerhead Mobility Equipment: Cane ADL Equipment: Grease Cup Filler Additional Objective Details - Home Living: Pt reports standing to shower with use of grab bars andsleeping in a standard loyda size bed with no use of bed rails. Prior Level of Function Receives Help From: Spouse (as needed) Level of [place] - Transfers/Ambulation/Mobility: Independent with functional transfers, Independent with household ambulation, Independent with community ambulation Level of [place] - ADLs: Independent Level of [place] - Homemaking: Independent Driving: Patient drives Vocational: Retired Leisure: boating, woodworking, spending time with family, reading Subjective Impression - Prior Function: Pt reports being IND in all areas of mobility and ADLs withno use of device at baseline. Pt reports [...] patient, device management and safe use of device,gait sequence, gait technique, improved posture, initiation of [...] mobility task(s), increased upright tolerance for functional t asks, decreased assistance required, decreased reliance on device/support, reduced risk of secondary impairment(s) Transfers Skilled Intervention Provided: verbal cues, tactile cues, facilitation, monitoring patient responsewith activity, monitoring patient response with positional changes, provided step by step instructions, patient education For: UE positioning, attention to task, fall prevention, initiation of task, proper body mechanics,safety during functional tasks, safe use of AD and/or equipment, self-monitoring during activity, sequencing of movement Resulting in: improved activity tolerance, improved adherence to precautions, improved functional independence, improved balance, improved performance, improved safety, increased insight into deficits, increased self-management of symptoms and impairments, increased upright tolerance for functionaltasks, decreased assistance required, decreasing fall risk, decreased [...] PT eval and treat at this time. Educationprovided throughout session on benefits/expectations of PT, necessary safety precautions (back), importance of mobility and upright activity in prevention of secondary impairment, self-monitoring of symptoms at rest and with activity, as well as proper technique/sequencing of all functional tasks co mpleted in session. Following functional mobility, pt ends [...] hospital or completion of Physical Therapy Plan. [id number] Consult note* Bj Reynoso, PT - 11/19/2024 8:00 AM EST Physical Therapy PHYSICAL THERAPY EVALUATION and TREATMENT NOTE PHYSICAL THERAPY EVALUATION Skilled Therapy Needs After Discharge Anticipate Resolution of Current Assessment Limitations Including: Pain, Mechanical Barriers, Social Support Are insurance manager Therapy Services Needed After Discharge: Yes Intensity of insurance manager Therapy: 2-3 days per week Anticipated Duration of insurance manager Therapy: Duration 10 - 30 days PT [...] result in limitations of Gait, Functional Transfers, Stair- Climbing, Safety, Activity Tolerance. These impairments result in [...] Static: Stand by assist, Contact guard assist Property Insurance Inspector - Standing Static: wheeled walker Loss of Balance- Standing Static: intermittent Standing Balance - Dynamic: Stand by assist, Contact guard assist Property Insurance Inspector - Standing Dynamic: wheeled walker Loss of Balance- Standing Dynamic: intermittent Bed Mobility Rolling: Stand by assist, Head of bed flat (needing increased time and effort) Supine to Sit: Supervision, Head of bed flat (needing increased time and effort) Property Insurance Inspector: bedrails Transfers Sit to Stand: Stand by assist, Contact guard assist Property Insurance Inspector: wheeled walker Toilet Transfers: Stand by assist, [...] reliance on upper extremities, forward flexed, decreased riccardo(steps per minute) Gait Loss(es) of Balance: intermittent, [...] Hand-held showerhead Mobility Equipment: Cane ADL Equipment: Grease Cup Filler Additional Objective Details - Home Living: Pt reports standing to shower with use of grab bars andsleeping in a standard loyda size bed with no use of bed rails. Prior Level of Function Receives Help From: Spouse (as needed) Level of [place] - Transfers/Ambulation/Mobility: Independent with functional transfers, Independent with household ambulation, Independent with community ambulation Level of [place] - ADLs: Independent Level of [place] - Homemaking: Independent Driving: Patient drives Vocational: Retired Leisure: boating, woodworking, spending time with family, reading Subjective Impression - Prior Function: Pt reports being IND in all areas of mobility and ADLs withno use of device at baseline. Pt reports [...] patient, device management and safe use of device,gait sequence, gait technique, improved posture, initiation of [...] mobility task(s), increased upright tolerance for functional t asks, decreased assistance required, decreased reliance on device/support, reduced risk of secondary impairment(s) Transfers Skilled Intervention Provided: verbal cues, tactile cues, facilitation, monitoring patient responsewith activity, monitoring patient response with positional changes, provided step by step instructions, patient education For: UE positioning, attention to task, fall prevention, initiation of task, proper body mechanics,safety during functional tasks, safe use of AD and/or equipment, self-monitoring during activity, sequencing of movement Resulting in: improved activity tolerance, improved adherence to precautions, improved functional independence, improved balance, improved performance, improved safety, increased insight into deficits, increased self-management of symptoms and impairments, increased upright tolerance for functionaltasks, decreased assistance required, decreasing fall risk, decreased [...] PT eval and treat at this time. Educationprovided throughout session on benefits/expectations of PT, necessary safety precautions (back), importance of mobility and upright activity in prevention of secondary impairment, self-monitoring of symptoms at rest and with activity, as well as proper technique/sequencing of all functional tasks co mpleted in session. Following functional mobility, pt ends [...] of Physical Therapy Plan. documented in this [id number] Plan of care note* Plan of Care - Pat Dasilva RN - 11/18/2024 5:03 PM EST Problem: Actual or potential alteration in health [...] level of psychosocial functioning Outcome: Partially Met [id number] Procedure note* Brief Op Note - Andrew Guzman MD - 11/18/2024 2:32 PM EST Brief Post Operative Note Patient Name: Tamra Guzman : 1955 (69 y.o.) Date of Service: 11/18/2024 [facility]: [id number] Procedure(s): Thoracic 9-10 Laminectomy, Removal Retained SCS Electrodes, Insertion of Paddle Lead Electrode via 9-10 laminectomy, Removal of Left Flank IPG, insertion of new Left Flank IPG. Pre-Operative Diagnoses: * Malfunction of spinal cord stimulator, initial encounter [T85.192A] Post-Operative Diagnoses: * Malfunction of spinal cord stimulator, initial encounter [T85.192A] Surgeons and Role: * Andrew Guzman MD - Primary Anesthesiologist: Ari Hernandez MD MANAGER SHIPPING: Brown Young CRNA Accessories Repairer: Lisandro Starr packaging materials inspectorLawn Mower Operator: Lashae Lopez, TECHNOLOGIST Accessories Repairer Relief: Belkis Macias RN Scrub Person: Celia Castillo ST Anesthesia Specialist: Andra Elizabeth Reconciling Clerk: Nadia Christine, Laney E, PSA Scrub Person Assist: Nadia Aquino RN Operative findings: Epidural scarring. Intra and immediate post-operative complications: none Type of anesthesia used: General Estimated blood loss: 300 mL Estimated urine output: Refer to surgical log Specimen(s): * No specimens in log * Implant(s): Implant Name Type Inv. Item Serial No. Lab Technician Lot No. [id number] No. Used Action HEMOSTAT 2 X 4IN SURGICEL FIBRILLAR - [id number] HEMOSTAT 2 X 4IN SURGICEL FIBRILLAR ETHICON [id number] N/A 1 Implanted HEMOSTAT 8 X 12.5CM X 10MM SURGIFOAM GELATIN SPONGE - [id number] HEMOSTAT 8 X 12.5CM X 10MM SURGIFOAM GELATIN SPONGE ETHICON N/A 1 Implanted HEMOSTAT 4 X 8IN SURGICEL ORIGINAL ABSORBABLE - [id number] HEMOSTAT 4 X 8IN SURGICEL ORIGINAL ABSORBABLE Ho [employer] Ho [id number] N/A 1 Implanted LEAD 60CM PENTA - [id number] LEAD 60CM PENTA [id number] ST TAMARA SC N/A 1 Implanted SEALANT 5ML HEMOSTATIC MATRIX FAST PREP FLOSEAL W/ RECOTHROM - [id number] SEALANT 5ML HEMOSTATIC MATRIX FAST PREP FLOSEAL W/ RECOTHROM SHAHID BIO [id number] N/A 1 Implanted SEALANT 5ML HEMOSTATIC MATRIX FAST PREP FLOSEAL W/ RECOTHROM - [id number] SEALANT 5ML HEMOSTATIC MATRIX FAST PREP FLOSEAL W/ RECOTHROM SHAHID BIO [id number] N/A 1 Implanted GENERATOR NEUROSTIMULATOR IMPLANTABLE XR5 PROCLAIM - [id number] GENERATOR NEUROSTIMULATOR IMPLANTABLE XR5 PROCLAIM [id number] ST TAMARA SC N/A 1 Implanted Drain(s): * No LDAs found * Wound(s): Wound 11/18/24 Surgical Wound Thoracic Spine (Active) Dressing Status Clean;Dry;Intact 11/18/24 142 Drainage Amount None 11/18/24 1426 Wound Closure Sutures;Surgical Adhesive 10/22/24 0002 Andrew Guzman MD 11/18/2024 2:32 PM [place] [id number] Nurse Surgical operation note* Belkis Macias RN - 11/18/2024 1:09 PM EST Explanted generator and leads from previous procedure. Disposed of in trash. [id number] Nurse Note* Belkis Macias RN - 11/18/2024 1:09 PM EST Explanted generator and leads from previous procedure. Disposed of in trash. documented in this [id number] Procedure note* Op Note - Andrew Guzman MD - 11/18/2024 12:43 PM EST TAMRA GUZMAN [facility] [id number] 1955 DATE 11/18/2024 OPERATIVE REPORT SURGEON ANDREW [...] 100% pain relief by his recollection from hisaxial lumbosacral spinal pain and leg pain. However, the system has now malfunctioned. He has been interrogated by a sales representative raw fibers from [employer] and noted to have multiple faults. Because of these faults, the patient also is precluded from undergoing MRI scanning. Because of the faults in the system and the poor functionality, the patient requests removal of the system as well as replacement with a new spinal cord stimulator system. In addition, he would like his left IPG to be relocatedmore cephalad so it does not interfere with his beltline. PROCEDURE IN DETAIL The procedure was performed in OR #2. The patient was intubated, and general anesthesia was established. An appropriate time-out was performed with Neurosurgery, Anesthesiology, and nursing teams, and all agreed with this patient's identity and planned procedure. After intubation and establishing ge neral anesthesia, he was carefully rotated in the [...] the T9-T10 laminar areas in the midline. Po ints of bleeding were controlled with bipolar cautery. Monopolar cautery was used to dissect down through the thoracic dorsal fascia, exposing the lamina of T9 and T10. A self-retaining retractor wasplaced. Throughout the case, small amounts of Floseal, [...] significant scarring in the epidural space, and the2 midline electrodes were noted to be scarred [...] anchor boots that had been left previously. [place] boots were freed from anchor sutures, and the leads were then once again removed, from the laminectomy site by gently pulling to this new incision site. A third incision was then made, reopening the pre-existing scar in theleft flank. The pseudocapsule surrounding the IPG was opened, and the IPG was then explanted. The wires were cut at the IPG, and then these wires were then pulled through to the L2 incision. All aspects and components of this spinal cord stimulator system were removed and then discarded. Next, the p seudocapsule was closed with interrupted 0 Vicryl suture [...] the location of this electrode. This paddle electrode'smost superior row leads was at the T7-8 [...] from this laminectomy site to the IPG site.A new Driver Proclaim IPG was brought into the field, and then leads were inserted into the headers. Initial interrogation by the Driver sales representative raw fibers did demonstrate 3 high impedance contacts, but w ith time, this receded to a single high [...] condition. ANDREW GUZMAN MD D 11/18/2024 14:23 [id number] T 11/18/2024 15:38 [facility] [id number] Attending History and physical note* Andrew Guzman MD - 11/18/2024 11:46 AM EST INTERVAL HISTORY AND PHYSICAL Patient Name: Tamra Guzman Admit Date: [id number] MR #: [id number] : 1955 The H&P has been reviewed [...] system placed at an outside institution in [place] in 2021. Unfortunately the system is malfunctioning in terms of a lead derangement. The patient did get 100% relief at times from his prior system,and he now has severe axial lumbar pain with his lack of stimulation. CT of thoracic spine on [address] of the lumbar spine of [...] note from his pain management physician in [place] indicated as well that the most superior aspect of the leads were at the mid T7 level. On current imaging set there is no evidence of compression fracture. His original spinal cord stimulator was implanted for thetreatment of axial lumbar pain and proximal right sciatica. There is no 1 inciting event that led to this, but the patient states that he has had significant athletic injuries and overuse injuries that led to his pain. He also has the scoliosis which she has known about for many years but never hadany specific treatment for this. He states that [...] reconstructive spinal surgery. He is managed by superintendent electric power in [facility]. He states his manifestations of polymyalgia rheumatica are pain everywhere. Medications and AR. Allergies to bee pollen. Psychosocial review. 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 He lives in the [facility] with his . Physical Exam Awake [...] are 5 out of 5 and symmetric. Angledozer Operator strength is 5 out of 5 and [...] a fully functioning spinal cord stim her system.To that end I would recommend explanting his [...] line and I believe that should be feasibl e. He and his understand the risk of the procedure including the very remote risk of any general surgical anesthetic including stroke DVT pulm embolism myocardial infarction as well as spinal cord injury that could be temporary or permanent neurologic disability including paraplegia, CSFleak, epidural hematoma, nonunion, instrumentation failure, as well as electrical mechanical failure of this product which the motor system, and the fact that a spinal cord stimulator IPG may need cb replaced in the future. They understand that infection of any of the sites could lead to significant severe complications. The patient will need to be supplemented with steroids as he is on chronic prednisone for his polymyalgia rheumatica and rheumatoid arthritis. Patient and understand and wish to proceed with surgical intervention as outlined above. Andrew Guzman MD [id number] History and physical note* Andrew Guzman MD - 11/18/2024 11:46 AM EST INTERVAL HISTORY AND PHYSICAL Patient Name: Tamra Guzman Admit Date: [id number] MR #: [id number] : 1955 The H&P has been reviewed [...] system placed at an outside institution in [place] in 2021. Unfortunately the system is malfunctioning in terms of a lead derangement. The patient did get 100% relief at times from his prior system,and he now has severe axial lumbar pain with his lack of stimulation. CT of thoracic spine on [address] of the lumbar spine of [...] note from his pain management physician in [place] indicated as well that the most superior aspect of the leads were at the mid T7 level. On current imaging set there is no evidence of compression fracture. His original spinal cord stimulator was implanted for thetreatment of axial lumbar pain and proximal right sciatica. There is no 1 inciting event that led to this, but the patient states that he has had significant athletic injuries and overuse injuries that led to his pain. He also has the scoliosis which she has known about for many years but never hadany specific treatment for this. He states that [...] reconstructive spinal surgery. He is managed by superintendent electric power in [facility]. He states his manifestations of polymyalgia rheumatica are pain everywhere. Medications and AR. Allergies to bee pollen. Psychosocial review. 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 He lives in the [facility] with his . Physical Exam Awake [...] are 5 out of 5 and symmetric. Angledozer Operator strength is 5 out of 5 and [...] a fully functioning spinal cord stim her system.To that end I would recommend explanting his [...] line and I believe that should be feasibl e. He and his understand the risk of the procedure including the very remote risk of any general surgical anesthetic including stroke DVT pulm embolism myocardial infarction as well as spinal cord injury that could be temporary or permanent neurologic disability including paraplegia, CSFleak, epidural hematoma, nonunion, instrumentation failure, as well as electrical mechanical failure of this product which the motor system, and the fact that a spinal cord stimulator IPG may need cb replaced in the future. They understand that infection of any of the sites could lead to significant severe complications. The patient will need to be supplemented with steroids as he is on chronic prednisone for his polymyalgia rheumatica and rheumatoid arthritis. Patient and understand and wish to proceed with surgical intervention as outlined above. Andrew Guzman MD * Andrew uGzman MD - 11/18/2024 11:43 AM EST Neurosurgical preoperative history and physical for procedure of 11/18/2024. Chief complaint. Malfunctioning spinal cord stimulator. History of present illness. Tamra Francis is a 69-year-old male who had a Driver percutaneous spinal cord stimulator lead system placed at an outside institution in [place] in 2021. Unfortunately the system is malfunctioning in terms of a lead derangement. The patient did get 100% relief at times from his prior system,and he now has severe axial lumbar pain with his lack of stimulation. CT of thoracic spine on [address] of the lumbar spine of [...] note from his pain management physician in [place] indicated as well that the most superior aspect of the leads were at the mid T7 level. On current imaging set there is no evidence of compression fracture. His original spinal cord stimulator was implanted for thetreatment of axial lumbar pain and proximal right sciatica. There is no 1 inciting event that led to this, but the patient states that he has had significant athletic injuries and overuse injuries that led to his pain. He also has the scoliosis which she has known about for many years but never hadany specific treatment for this. He states that [...] reconstructive spinal surgery. He is managed by superintendent electric power in [facility]. He states his manifestations of polymyalgia rheumatica are pain everywhere. Medications and AR. Allergies to bee pollen. Psychosocial review. 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 He lives in the [facility] with his . Physical Exam Awake [...] are 5 out of 5 and symmetric. Angledozer Operator strength is 5 out of 5 and [...] a fully functioning spinal cord stim her system.To that end I would recommend explanting his [...] line and I believe that should be feasibl e. He and his understand the risk of the procedure including the very remote risk of any general surgical anesthetic including stroke DVT pulm embolism myocardial infarction as well as spinal cord injury that could be temporary or permanent neurologic disability including paraplegia, CSFleak, epidural hematoma, nonunion, instrumentation failure, as well as electrical mechanical failure of this product which the motor system, and the fact that a spinal cord stimulator IPG may need cb replaced in the future. They understand that infection of any of the sites could lead to significant severe complications. The patient will need to be supplemented with steroids as he is on chronic prednisone for his polymyalgia rheumatica and rheumatoid arthritis. Patient and understand and wish to proceed with surgical intervention as outlined above. Andrew Guzman MD documented in this [id number] History and physical note* Andrew Guzman MD - 11/18/2024 11:43 AM EST Neurosurgical preoperative history and physical for procedure of 11/18/2024. Chief complaint. Malfunctioning spinal cord stimulator. History of present illness. Tamra Francis is a 69-year-old male who had a Driver percutaneous spinal cord stimulator lead system placed at an outside institution in [place] in 2021. Unfortunately the system is malfunctioning in terms of a lead derangement. The patient did get 100% relief at times from his prior system,and he now has severe axial lumbar pain with his lack of stimulation. CT of thoracic spine on [address] of the lumbar spine of [...] note from his pain management physician in [place] indicated as well that the most superior aspect of the leads were at the mid T7 level. On current imaging set there is no evidence of compression fracture. His original spinal cord stimulator was implanted for thetreatment of axial lumbar pain and proximal right sciatica. There is no 1 inciting event that led to this, but the patient states that he has had significant athletic injuries and overuse injuries that led to his pain. He also has the scoliosis which she has known about for many years but never hadany specific treatment for this. He states that [...] reconstructive spinal surgery. He is managed by superintendent electric power in [facility]. He states his manifestations of polymyalgia rheumatica are pain everywhere. Medications and AR. Allergies to bee pollen. Psychosocial review. 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 He lives in the [facility] with his . Physical Exam Awake [...] are 5 out of 5 and symmetric. Angledozer Operator strength is 5 out of 5 and [...] a fully functioning spinal cord stim her system.To that end I would recommend explanting his [...] line and I believe that should be feasibl e. He and his understand the risk of the procedure including the very remote risk of any general surgical anesthetic including stroke DVT pulm embolism myocardial infarction as well as spinal cord injury that could be temporary or permanent neurologic disability including paraplegia, CSFleak, epidural hematoma, nonunion, instrumentation failure, as well as electrical mechanical failure of this product which the motor system, and the fact that a spinal cord stimulator IPG may need cb replaced in the future. They understand that infection of any of the sites could lead to significant severe complications. The patient will need to be supplemented with steroids as he is on chronic prednisone for his polymyalgia rheumatica and rheumatoid arthritis. Patient and understand and wish to proceed with surgical intervention as outlined above. Andrew Guzman MD [id number] NoteNeurosurgical preoperative history and physical for procedure of 11/18/2024. Chief complaint. Malfunctioning spinal cord stimulator. History of present illness. Tamra Fracnis is a 69-year-old male who had a Driver percutaneous spinal cord stimulator lead system placed at an outside institution in [place] in 2021. Unfortunately the system is malfunctioning [...] note from his pain management physician in [place] indicated as well that the most superior [...] reconstructive spinal surgery. He is managed by superintendent electric power in [facility]. He states his manifestations of polymyalgia rheumatica are pain everywhere. Medications and AR. Allergies to bee pollen. Psychosocial review. 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 He lives in the [facility] with his . Physical Exam Awake [...] are 5 out of 5 and symmetric. Angledozer Operator strength is 5 out of 5 and [...] to retrieve the leads (more content not included)...[facility]01-16-2025 History of Present illness Narrative* Zuly Good RN - 10/28/2024 12:16 PM EST Images from the original note were not [...] well as the office phone number and septic tank installer's number. documented in this [id number] NotePre-Operative H&P Assessment and Plan Malfunction of spinal [...] data recorded 3. Predisposin (more content not included)...[facility]12-27-2024 History of Present illness Narrative* Andrew Guzman MD - 10/08/2024 2:15 PM EST No chief complaint on file. Nonfunctioning spinal cord stimulator. RAGHAV Francis is a 69-year-old male who had a Driver percutaneous spinal cord stimulator lead system placed at an outside institution in [place] in 2021. Unfortunately the system is malfunctioning in terms of a lead derangement. The patient did get 100% relief at times from his prior system,and he now has severe axial lumbar pain with his lack of stimulation. CT of thoracic spine on [address] of the lumbar spine of [...] note from his pain management physician in [place] indicated as well that the most superior aspect of the leads were at the mid T7 level. On current imaging set there is no evidence of compression fracture. His original spinal cord stimulator was implanted for thetreatment of axial lumbar pain and proximal right sciatica. There is no 1 inciting event that led to this, but the patient states that he has had significant athletic injuries and overuse injuries that led to his pain. He also has the scoliosis which she has known about for many years but never hadany specific treatment for this. He states that [...] reconstructive spinal surgery. He is managed by superintendent electric power in [facility]. He states his manifestations of polymyalgia rheumatica are pain everywhere. Medications and AR. Allergies to bee pollen. Psychosocial review. 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 He lives in the [facility] with his . Physical Exam Awake [...] extremities. Power at the iliopsoas glute across ofhamstrings and dorsi plantarflex the feet are 5 out of 5 and symmetric. Angledozer Operator strength is 5 out of 5and symmetric. Romberg sign is negative. The patient [...] a fully functioning spinal cord stim her system.To that end I would recommend explanting his [...] line and I believe that should be feasibl e. He and his understand the risk of the procedure including the very remote risk of any general surgical anesthetic including stroke DVT pulm embolism myocardial infarction as well as spinal cord injury that could be temporary or permanent neurologic disability including paraplegia, CSFleak, epidural hematoma, nonunion, instrumentation failure, as well as electrical mechanical failure of this product which the motor system, and the fact that a spinal cord stimulator IPG may need cb replaced in the future. They understand that infection of any of the sites could lead to significant severe complications. The patient will need to be supplemented with steroids as he is on chronic prednisone for his polymyalgia rheumatica and rheumatoid arthritis. Patient and understand and wish to proceed with surgical intervention as outlined above. Andrew Guzman MD documented in this [id number] NoteNo chief complaint on file. Nonfunctioning spinal cord stimulator. RAGHAV Francis is a 69-year-old male who had a Driver percutaneous spinal cord stimulator lead system placed at an outside institution in [place] in 2021. Unfortunately the system is malfunctioning [...] note from his pain management physician in [place] indicated as well that the most superior [...] reconstructive spinal surgery. He is managed by superintendent electric power in [facility]. He states his manifestations of polymyalgia rheumatica are pain everywhere. Medications and AR. Allergies to bee pollen. Psychosocial review. 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 He lives in the [facility] with his . Physical Exam Awake [...] are 5 out of 5 and symmetric. Angledozer Operator strength is 5 out of 5 and [...] fusion type of co (more content not included)...[facility] [id number] Note* Addendum Note - Ahmet Frances PA-C - 09/30/2024 10:21 AM ESTAddended by: AHMET FRANCES on: 09/30/2024 10:21 AM Modules accepted: Orders [id number] Note* Addendum Note - Ahmet Frances PA-C - 09/30/2024 10:21 AM ESTAddended by: AHMET FRANCES on: 09/30/2024 10:21 AM Modules accepted: Orders [id number] Miscellaneous Notes* Addendum Note - Ahmet Frances PA-C - 09/30/2024 10:21 AM ESTAddended by: AHMET FRANCES on: 09/30/2024 10:21 AM Modules accepted: Orders documented in this [id number] NotePatient Information: Tamra Guzman is a 69 y.o. male 1955 HPI Patient is a 69-year-old male presenting for evaluation of his spinal cord stimulator. Patient reports that he does have a history of an Driver spinal cord stimulator being placed in 2021 by his pain management physician in [place]. He reports at that time he did [...] his stimulator by the spinal cord similar sales representative raw fibers, it was found that there was disturbances [...] 2021 by his pain management physician in [place] for low back pain and right lower extremity pain. Unfortunately over the last several months he has had recurrence of his pain and feels the stimulator is no longer working for him. He was scheduled for an MRI but his stimulator was unable to be put in MRI mode. Upon further interrogation of his stimulator by his spinal cord stimulator sales representative raw fibers, it was determined that there were issues [...] and report from the spinal cord stimulator sales representative raw fibers pushed over to our office for review [...] questions. AUTHENTICATED BY AHMET FRANCES, ON 09/30/2024 10:21:03[facility] 09-30-2024 History of Present illness Narrative* Ahmet Frances PA-C - 09/30/2024 9:38 AM EST Patient Information: Tamra Guzman is a 69 y.o. male 1955 HPI Patient is a 69-year-old male presenting for evaluation of his spinal cord stimulator. Patient reports that he does have a history of an Driver spinal cord stimulator being placed in 2021 by his painmanagement physician in [place]. He reports at that time he did have notable low back pain andright leg pain. He reports that the stimulator [...] his stimulator by the spinal cord similar sales representative raw fibers, it was found that there was disturbances [...] 2021 by his pain management physician in [place] for low back pain and right lower extremity pain. Unfortunately over the last several months he has had recurrence of his pain and feels the stimulator is no longer working for him. He was scheduled for an MRI but his stimulator was unable to be put in MRI mode. Uponfurther interrogation of his stimulator by his spinal cord stimulator sales representative raw fibers, it was determined that there were issues [...] as well. I do recommend that he meetwith her surgeon to discuss these options. We will have his CTs and report from the spinal cord stimulator sales representative raw fibers pushed over to our office for review [...] call with any questions. documented in this [id number] History of Present illness Narrative* Ahmet Frances PA-C - 09/30/2024 9:38 AM EST Patient Information: Tamra Guzman is a 69 y.o. male 1955 HPI Patient is a 69-year-old male presenting for evaluation of his spinal cord stimulator. Patient reports that he does have a history of an Driver spinal cord stimulator being placed in 2021 by his painmanagement physician in [place]. He reports at that time he did have notable low back pain andright leg pain. He reports that the stimulator [...] his stimulator by the spinal cord similar sales representative raw fibers, it was found that there was disturbances [...] 2021 by his pain management physician in [place] for low back pain and right lower extremity pain. Unfortunately over the last several months he has had recurrence of his pain and feels the stimulator is no longer working for him. He was scheduled for an MRI but his stimulator was unable to be put in MRI mode. Uponfurther interrogation of his stimulator by his spinal cord stimulator sales representative raw fibers, it was determined that there were issues [...] as well. I do recommend that he meetwith her surgeon to discuss these options. We will have his CTs and report from the spinal cord stimulator sales representative raw fibers pushed over to our office for review and we will schedule him with our surgeon. I did instruct him to call with any questions or concerns in the meantime. After review, it does appear that the patient did have a CT of the lumbar spine. Given anticipated spinal cord stimulator revision, I also recommended obtaining dedicated thoracic imaging in the formof a CT thoracic spine without contrast. Patient [...] call with any questions. documented in this [id number] Discharge summary Author Von Park [facility] November 03, 2023 12:00pm Note Date/Time November 03, 2023 1 2:00pm [facility] Medical Records Department [address] [place] [address] Discharge Summary 11/03/23 1159 MR#: [id number] Acct: [id number] Name: TAMRA GUZMAN Rep #:[id number] : 1955 68 From: Von Park MD PCP: Dr. Mike Aburto MD Status:ADM I NO Location: [place] [address] Providers Date of Admission: 11/02/23 Date of [...] 73.7 H, Lymph % (Auto) 18.1 L, Tift % (Auto) 6.1, Eos % (Auto) 1.7, [...] Self Care Charges/Coding Visit Charges Inpatient E&M: 97187 Disch Hosp >30min 11/03/23 1200 <Electronically signed by Von Park MD> Cosigner Signature (if applicable): CC: Dr. Von Park MD; Dr. Mike Aburto MD~ Signed [facility] Work Phone: 1(735) 217-954201-22-2024 Progress note Author Von Park [facility] November 03, 2023 8:12am Note Date/Time November 03, 2023 8 :07am [facility] Medical Records Department [address] [place] [address] Progress Note - Hospitalist 11/03/23 0806 MR#: [id number] Acct: [id number] Name: TAMRA GUZMAN Rep #:[id number] : 1955 68 From: Von Park MD PCP: Dr. Mike Aburto MD Status:ADM I NO Location: [facility]3 [id number] Reason for Visit Reason for Visit: Diagnoses [...] 73.7 H, Lymph % (Auto) 18.1 L, Tift % (Auto) 6.1, Eos % (Auto) 1.7, [...] documentation,35 minutes Charges/Coding Visit Charges Inpatient E&M: 94618 Subs Hosp L2 11/03/23 0812 <Electronically signed by Von Park MD> Cosigner Signature (if applicable): CC: ~ Signed [facility] Work Phone: 1(688) 567-360201-21-2024 History and physical note Author Mitra Martinez [facility] November 02, 2023 9:43am Note Date/Time November 02, 2023 9 :30am [facility] Medical Records Department [address] [place] [address] H&P Exam - Hospitalist 11/02/23 0928 MR#: [id number] Acct: [id number] Name: TAMRA GUZMAN Rep #:[id number] : 1955 68 From: Mitra Martinez MD PCP: Dr. Mike Aburto MD Status:ADM I NO Location: [facility] [id number] HPI - General General Date of Admission: 11/02/23 Date of Service: 11/02/23 Chief Complaint: Vertigo HPI Narrative TAMRA GUZMAN, is a 68-year-old male history of cochlear implant, GERD, PMR, mild cognitive impairment, sleep apnea, hypertension, presented to [facility] 11/02/2023 with vertigo, nausea, vomiting with a [...] had the symptoms until Friday. [facility] Medical History (Updated 11/02/23 @ 05:50 [...] deficits, cranial nerves II through XII intact, fmmhkp-ud-cycr without significant difficulty bilaterally Skin: No rashes [...] % (Auto) 60.5, Lymph % (Auto) 27.7, Tift % (Auto) 8.4, Eos % (Auto) 2.6, [...] documentation, 57minutes Charges/Coding Visit Charges Inpatient E&M: 68348 Init Hosp L2 11/02/23 0943 <Electronically signed by Mitra Martinez MD> Cosigner Signature (if applicable): CC: Dr. Mitra Martinez MD; Dr. Mike Aburto MD~ Signed [facility] Work Phone: 1(381) 173-793501-21-2024 Discharge summary Author Arik Cade [facility] November 02, 2023 9:26am Note Date/Time November 02, 2023 5 :50am [facility] Medical Records Department [address] [place] [address] Emergency Department Summary 11/02/23 MR#: [id number] Acct: [id number] Name: TAMRA GUZMAN Rep #:[id number] : [...] himself. He is not on blood thinners. [facility] Medical History (Updated 11/02/23 @ 05:50 by [...] mild elevation of glucose at 128. Patient's oyheq-ys-dlfw glucose was 114. Patient is feeling better [...] % (Auto) 60.5 Lymph % (Auto) 27.7 Tift % (Auto) 8.4 Eos % (Auto) 2.6 [...] 6:22 EST Reading Location ID and State: [facility] / [place] , Service support , Discharge [...] 3-5 Days Disposition Disposition: Acute Care Hospital [facility] What to do if you have Problems For any increased pain, shortness of breath, bleeding, nausea or vomiting, chestpain, or any unexpected problems, contact your Primary Care Provider. Call [facility] ([phone]) or report to the closest Emergency Room. Call 911 if necessary. 11/02/23925 <Electronically signed by Arik Cade MD> Cosigner Signature (if applicable): CC: Dr. Mike Aburto MD ~ Signed [facility] Work Phone: 1(585) 832-206701-21-2024 Discharge summary Author Arik Cade [facility] November 02, 2023 9:26am Note Date/Time November 02, 2023 5 :50am [facility] Medical Records Department [address] [place] [address] Emergency Department Summary 11/02/23 MR#: [id number] Acct: [id number] Name: TAMRA GUZMAN Rep #:[id number] : [...] himself. He is not on blood thinners. [facility] Medical History (Updated 11/02/23 @ 05:50 by [...] mild elevation of glucose at 128. Patient's wtdsn-xu-towr glucose was 114. Patient is feeling better [...] % (Auto) 60.5 Lymph % (Auto) 27.7 Tift % (Auto) 8.4 Eos % (Auto) 2.6 [...] 6:22 EST Reading Location ID and State: [facility] / [place] , Service support , Discharge [...] 3-5 Days Disposition Disposition: Acute Care Hospital [facility] What to do if you have Problems For any increased pain, shortness of breath, bleeding, nausea or vomiting, chestpain, or any unexpected problems, contact your Primary Care Provider. Call [facility] ([phone]) or report to the closest Emergency Room. Call 911 if necessary. 11/02/23925 <Electronically signed by Arik Cade MD> Cosigner Signature (if applicable): CC: Dr. Mike Aburto MD ~ Signed [facility] Work Phone: 1(860) 350-301108-15-2023 History and physical note Author Roel Black [facility] May 27, 2023 1:38pm Note Date/Time May 27, 2023 1: 38pm [facility] [address] [place] [address] H&P Exam - Wound Care 05/27/23 1325 MR#: [id number] Acct: [id number] Name: TAMRA GUZMAN Rep #:[id number] : [...] at the urgent care center at the [facility] on April 19, 2023, and was [...] denies a history of thrombophlebitis. [facility] Medical History Alzheimer's disease Chronic cough Dysphagia [...] Date Recorded By Document 05/27/23 09:49 MW [id number] 05/27/23 10:00 MW 05/27/23 09:49 - Today's Visit Information Type of service Follow-up Visit (Physician/CARBON FURNACE OPERATOR HELPER ) Arrival Mode Ambulatory Transfer Assistance None [...] Patient Pain Free? Yes WC - Nurse 1 - General Ulcer Measurement Start: 05/13/23 09:15 Freq: Status: Active Protocol: Activity Type Activity Date Activity User E-sign Co-sign Detail Recorded Client Recorded Date Recorded By Document 05/27/23 09:49 MW [id number] 05/27/23 10:00 MW 05/27/23 09:49 Wound Center [...] Date Recorded By Document 05/13/23 12:30 PL [id number] 05/13/23 12:32 PL Document 05/27/23 12:22 PL [id number] 05/27/23 12:23 PL 05/13/23 05/27/23 12:30 12:22 [...] Date Recorded By Document 05/13/23 09:47 DL [id number] 05/13/23 09:48 DL 05/13/23 09:47 Wound Care [...] in the urgent care facility at [facility], [facility] 3 courses of oral [...] Cosigner Signature (if applicable): CC: ~ Signed [facility] Work Phone: 1(421) 603-728608-01-2023 History and physical note Author Roel Black [facility] May 13, 2023 3:12pm Note Date/Time May 13, 2023 2:3 5pm [facility] W[facility]aling Center [address] [place] [address] H&P Exam - Wound Care 05/13/23 1431 MR#: [id number] Acct: [id number] Name: TAMRA GUZMAN Rep #:[id number] : [...] at the urgent care center at the [facility] on April 19, 2023, and was [...] denies a history of thrombophlebitis. [facility] Medical History Alzheimer's disease Chronic cough Dysphagia [...] recent minor lesion excisions by the patient's review trainer, Dr. Taj Boothe. Neuro oriented x3, CN's [...] Date Recorded By Document 05/13/23 12:30 PL [id number] 05/13/23 12:32 PL 05/13/23 12:30 Wound Center [...] Date Recorded By Document 05/13/23 09:47 DL [id number] 05/13/23 09:48 DL 05/13/23 09:47 Wound Care [...] in the urgent [facility], [facility] 3 courses of oral [...] of [employer]. Total time: 24 minutes 05/13/23 2092 <Electronically signed by Roel Black MD> Cosigner Signature (if applicable): CC: ~ Signed [facility] Work Phone: 1(700) 737-149807-25-2023 History and physical note Author Roel Black [facility] May 06, 2023 8:45am Note Date/Time May 06, 2023 8:45 am [facility] [address] [place] [address] H&P Exam - Wound Care 05/06/23 0841 MR#: [id number] Acct: [id number] Name: TAMRA GUZMAN Rep #:[id number] : [...] at the urgent care center at the [facility] on April 19, 2023, and was [...] denies a history of thrombophlebitis. [facility] Medical History Alzheimer's disease Chronic cough Dysphagia [...] Date Recorded By Document 04/29/23 08:11 MW [id number] 04/29/23 08:30 MW Document 05/06/23 08:11 DL [id number] 05/06/23 08:16 DL 04/29/23 05/06/23 08:11 08:11 WC - Today's Visit Information Type of service Initial Visit Follow-up Visit (Physician/CARBON FURNACE OPERATOR HELPER ) Arrival Mode Ambulatory Ambulatory Transfer Assistance [...] Bottom <Entered> (a) Communication Assessment Preferred language Stateless Corporate Quality Engineer Required No Able to Read Yes Able [...] Any Declines Assistive Device With Patient No Culture/Sikh/Yarn Bleaching Machine Operator Cultural/Sikh Needs that may affect No Treatment Plan Would you allow our hospital single pass soil stabilizer operator to No meet you for the purpose of spiritual/ emotional support? Yarn Bleaching Machine Operator to contact place of yazidism No (a) 1 - - 2 - + 3 - + WC - Nurse 1 - General Ulcer Measurement Start: 04/29/23 08:11 Freq: Status: Active Protocol: Activity Type Activity Date Activity User E-sign Co-sign Detail Recorded Client Recorded Date Recorded By Document 04/29/23 08:11 [id number] 04/29/23 08:30 MW Document 05/06/23 08:11 DL [id number] 05/06/23 08:16 DL 04/29/23 05/06/23 08:11 08:11 [...] (0 Medium (34-66%) %) -Granulation Quality N/A Pale,[place] -Slough/Fibrin Yes -Necrosis Amt Large (67-100%) Medium [...] Date Recorded By Document 04/29/23 11:52 PL [id number] 04/29/23 11:55 PL 04/29/23 11:52 Wound Center [...] Date Recorded By Document 04/29/23 09:12 DL [id number] 04/29/23 09:14 DL Document 05/06/23 08:35 MW [id number] 05/06/23 08:36 MW 04/29/23 05/06/23 09:12 08:35 [...] in the urgent care facility at the [facility], [facility] 3 courses of oral [...] Cosigner Signature (if applicable): CC: ~ Signed [facility] Work Phone: 1(212) 366-579607-18-2023 History and physical note Author Roel Black [facility] April 29, 2023 9:21am Note Date/Time April 29, 2023 9:21 am [facility] [address] [place] [address] H&P Exam - Wound Care 04/29/23 0902 MR#: [id number] Acct: [id number] Name: MEGANTAMRA BLAZE Rep #:[id number] : 1955 68 From: [...] at the urgent care center at the [facility] on April 19, 2023, and was [...] denies a history of thrombophlebitis. [facility] Medical History Alzheimer's disease Chronic cough Dysphagia [...] Date Recorded By Document 04/29/23 08:11 MW [id number] 04/29/23 08:30 MW 04/29/23 08:11 - Today's Visit Information Type of service [...] Bottom <Entered> (a) Communication Assessment Preferred language Stateless Corporate Quality Engineer Required No Able to Read Yes Able [...] Any Declines Assistive Device With Patient No Culture/Sikh/Yarn Bleaching Machine Operator Cultural/Sikh Needs that may affect No Treatment Plan Would you allow our [facility] single pass soil stabilizer operator to No meet you for the purpose of spiritual/ emotional support? Yarn Bleaching Machine Operator to contact place of yazidism No (a) 1 - - 2 - + 3 - + WC - Nurse 1 - General Ulcer Measurement Start: 04/29/23 08:11 Freq: Status: Active Protocol: Activity Type Activity Date Activity User E-sign Co-sign Detail Recorded Client Recorded Date Recorded By Document 04/29/23 08:11 MW [id number] 04/29/23 08:30 MW 04/29/23 08:11 Wound Center [...] in the urgent care facility at the [facility], as well as by [facility]. 3 courses of oral [...] for reassessment. Total time: 46 minutes 04/29/23 0505 <Electronically signed by Roel Black MD> Cosigner Signature (if applicable): CC: ~ Signed [facility] Work Phone: 1(357) 305-159007-08-2023 NoteHNO ID: [id number] Author: Jeffrey Bethea APRN.[facility] Service: ? Author Type: Nurse Practitioner Type: Progress Notes Filed: 04/19/2023 11:31 AM Note Text: Subjective HPI HPI Nam Guzman is a 68 year old male who presents today for CC of right leg skin tear, now red. This started 1 week ago. Has tried nothing for relief. Symptoms are worsened by nothing. Denies diabetes. Patient not known to [facility], denies renal/hepatic disease. .Patient presents with: infected [...] - CEPHALEXIN 500 MG CAPSULE Jeffrey [facility]hea [facility] note Author Eunice Garay [facility] Note Date/Time April 01, 2025 4:38 pm [facility] Medical Records Department [address] [place] [address] Anesthesia Postop Eval II 04/01/25 1547 MR#: [id number] Acct: [id number] Name: TAMRA GUZMAN Rep #:[id number] : 1955 70 From: Eunice Garay CRNA PCP: Dr. Mike Aburto MD Status:REG S DC Y Race: C Location: [address] Anesthesia Postop Eval I Sum Postop Eval Completion status Anesthesia document: Postop Eval 1 completed: Yes Anesthesia Postop Eval I Summary Anesthesia Postop Eval I Summary: Anesthesia Postop Eval I: Assessment Summary Airway patent Yes 04/01/25 13:36 [email or web address] Spontaneous unlabored Yes 04/01/25 13:36 MANAGER [email or web address] respirations Mental status nausea No 04/01/25 13:36 [email or web address] [email or web address] Vomiting No 04/01/25 13:36 [email or web address] Anesthesia Postop Eval I: Fluid Summary Crystalloid volume administer 1,000 04/01/25 13:36 [email or web address] (ml) Colloids volume administered ( ml) Blood Product volume administered (ml) Total IV fluid infused 1,000 04/01/25 13:36 [email or web address] Anesthesia Postop Eval I: Summary Notes Anesthesia Complication No 04/01/25 13:36 [email or web address] Anesthesia Complication Comment: Post-operative progress note Anesthesia: Postop Eval II Evaluation Mental status: Awake Pain Level: 2 nausea: No Vomiting: No 04/01/25 1547 <Electronically signed by Eunice pang CRNA> Date _ Eunice Garay CRNA Cosigner Signature: Date CC: ~ Signed [facility] Work Phone: Evaluation noteNo assessment information available [facility] Work Phone: Evaluation note* Diagnosis Onset Date Resolution Status Alzheimer's disease acute Dysphagia acute Esophageal stenosis acute GERD (gastroesophageal reflux disease) acute Hearing loss acute Hiatal hernia acute History of total bilateral knee replacement acute Hyperlipidemia acute Mild cognitive impairment ac [place] Pancreatic cyst acute Peripheral nerve neurostimulator device in situ acute Polymyalgia rheumatica acute Sleep apnea treated with con tinuous positive airway pressure (CPAP) acute Spinal stenosis at L4-L5 level acute Traumatic open wound of right lower leg acute Chronic cough chronic Hypertension chronic [facility] Work Phone: Evaluation note* Diagnosis Onset Date Resolution Status Alzheimer's disease acute Dysphagia acute Esophageal stenosis acute GERD (gastroesophageal reflux disease) acute Hearing loss acute Hiatal hernia acute History of total bilateral knee replacement acute Hyperlipidemia acute Mild cognitive impairment [place] Pancreatic cyst acute Peripheral nerve neurostimulator device [...] acute Hyperlipidemia acute Mild cognitive impairment [place] Pancreatic cyst acute Peripheral nerve neurostimulator device in situ acute Polymyalgia rheumatica acute Sleep apnea treated with con tinuous positive airway pressure (CPAP) acute Spinal stenosis at L4-L5 level acute Traumatic open wound of right lower leg acute Chronic cough chronic Hypertension chronic 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 [facility] Work Phone: Evaluation note* Diagnosis Onset Date Resolution Status Alzheimer's disease acute Dysphagia acute Esophageal stenosis acute GERD (gastroesophageal reflux disease) acute Hearing loss acute Hiatal hernia acute History of total bilateral knee replacement acute Hyperlipidemia acute Mild cognitive impairment [place] Pancreatic cyst acute Peripheral nerve neurostimulator device [...] acute Hyperlipidemia acute Mild cognitive impairment [place] Pancreatic cyst acute Peripheral nerve neurostimulator device in situ acute Polymyalgia rheumatica acute Sleep apnea treated with con tinuous positive airway pressure (CPAP) acute Spinal stenosis at L4-L5 level acute Traumatic open wound of right lower leg acute Chronic cough chronic Hypertension chronic 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 Acute maxillary sinusitis, unspecified acute [facility] Work Phone: Evaluation note* Diagnosis Onset Date Resolution Status Acute maxillary sinusitis, unspecified acute GERD (gastroesophageal reflux disease) acute Mild cognitive impairment [place] Nausea & vomiting acute Polymyalgia rheumatica acute Sleep apnea treated with con tinuous positive airway pressure (CPAP) acute Vertigo acute [facility] Work Phone: Evaluation note* Diagnosis Onset Date Resolution Status Acute maxillary sinusitis, unspecified acute GERD (gastroesophageal reflux disease) acute Mild cognitive impairment [place] Polymyalgia rheumatica acute Sleep apnea treated with con tinuous positive airway pressure (CPAP) acute Nausea & vomiting resolved Vertigo resolved [facility] Work Phone: Evaluation note* Diagnosis Onset Date Resolution Status Acute maxillary sinusitis, unspecified acute GERD (gastroesophageal reflux disease) acute Mild cognitive impairment [place] Polymyalgia rheumatica acute Sleep apnea treated with con tinuous positive airway pressure (CPAP) acute Nausea & vomiting resolved Vertigo resolved Carotid artery calcification acute Hyperlipidemia acute Rheumatic fever acute [facility] Work Phone: Evaluation note* Diagnosis Encounter for adjustment and management of neurostimulator- Primary [facility] Failed back syndrome- Primary Other unspecified back disorder Lumbar radiculopathy Thoracic or lumbosacral neuritis or radiculitis, unspecified [facility] Diagnosis Failed back syndrome- Primary Other unspecified back disorder Lumbar radiculopathy Thoracic or lumbosacral neuritis or radiculitis, unspecified [facility]* Diagnosis Malfunction of spinal cord stimulator, [...] [facility] Author Mitra Martinez [facility] November 02, 2023 9:43am Note Date/Time November 02, 2023 9 :30am [facility] Medical Records Department [address] [place] [id number] H&P Exam - Hospitalist 11/02/23 0928 MR#: [id number] Acct: [id number] Name: TAMRA GUZMAN Rep #:[id number] : 1955 68 From: Mitra Martinez MD PCP: Dr. Mike Aburto MD Status:ADM I NO [place] [facility] PF211-1 HPI - General General Date of Admission: 11/02/23 Date of Service: 11/02/23 Chief Complaint: Vertigo HPI Narrative TAMRA GUZMAN, is a 68-year-old male history of cochlear implant, GERD, PMR, mild cognitive impairment, sleep apnea, hypertension, presented to [facility] 11/02/2023 with vertigo, nausea, vomiting with a [...] had the symptoms until Friday. [facility] Medical History (Updated 11/02/23 @ 05:50 [...] deficits, cranial nerves II through XII intact, [id number] without significant difficulty bilaterally Skin: No rashes [...] % (Auto) 60.5, Lymph % (Auto) 27.7, Tift % (Auto) 8.4, Eos % (Auto) 2.6, [...] 6:22 EST Reading Location ID and State: [facility] / [place] , Service support , Assessment & Plan [...] documentation, 57minutes Charges/Coding Visit Charges Inpatient E&M: 29095 Init Hosp L2 11/02/23 0943 <Electronically signed by Mitra Martinez MD> Cosigner Signature (if applicable): CC: Dr. Mitra Martinez MD; Dr. Mike Aburto MD~ Signed [facility] Work Phone: Rezkdj for referral (narrative)No reason for referral information availableWTriHealth [facility] Work Phone: Relukb for visit Narrative* Auth/Cert (Routine) Specialty Diagnoses / Procedures Referred By Milagros t Referred To Contact Diagnoses Malfunction of spinal cord stimulator, initial encounter Malfunction of spinal cord stimulator, initial encounter [T85.192A] Procedures ND INSJ/RPLCMT SPINAL NPG/RCVR POCKET CRTJ&CONNJ ND BUSH FACETECTOMY & FORAMOTOMY 1 VRT SGM THORACIC ND BUSH FACETECTOMY&FORAMOT 1 VRT SGM EA ADDL SGM ND REVJ INCL RPLCMT NSTIM ELTRD PLT/PDLE INCL FLUOR Andrew Guzman MD [address] [facility] [address] [address] Phone: tel: fax: Referral ID Status Reason Start Date Expiration Date Visits Re quested Visits Authorized [id number] 10/22/2024 1 1 [facility] Summary Purpose Family History No Family History Records FoundNo Family History Records FoundNo Family History Records FoundNo Family History Records FoundNo Family History Records FoundNo Family History Records Found Advance Directives No Advanced Directives Records Found Advance Directive Response Recorded Date/ Time Living Will No May 27 0 9:01pm Power of Terminal Operations Manager No May 27 9:01pm Advance Directive Response Recorded Date/ Time Living Will No May 27 0 8:01pm Power of Terminal Operations Manager No May 27, 020 8:01pm Advance Directive Response Recorded Date/ Time Name of Medical Power of Terminal Operations Manager Nely turcios November 02, 2023 5:35am Living Will Yes November 02 5:35am Power of Terminal Operations Manager Yes November 02, 2023 5:35am Advance Directive Response Recorded Date/ Time Name of Medical Power of Terminal Operations Manager Nely turcios - November 02, 2023 11:07am Living Will Yes November 02 11:07am Power of Terminal Operations Manager Yes November 02, 2023 11:07am Date Activated Date Inactivated Comments 11/18/2024 3:37 PM 11/19/2024 5:58 PM Date Activated Date Inactivated Comments 11/18/2024 3:37 PM 11/19/2024 5:58 PM Advance Directive Response Recorded Date/ Time Do you have a Healthcare Power of Terminal Operations Manager? Yes March 30, 2025 9:32am Chief Complaint and Reason for Visit Chief [...] Chief Complaint WOUND WOUND FAX RESULTS TO [phone] Reason for Visit Alzheimer's disease Dysphagia Esophageal [...] Chief Complaint WOUND WOUND FAX RESULTS TO [phone] CONCERN FOR SINUS INFECTION Reason for Visit [...] unspecified Chief Complaint FAX RESULTS TO [phone] CONCERN FOR SINUS INFECTION INTRACTABLE VERTIGO/FALLS Reason [...] (CPAP) Vertigo Chief Complaint FAX RESULTS TO CONCERN FOR SINUS INFECTION INTRACTABLE VERTIGO/FALLS INTRACTABLE [...] abdominal pain (STAT March 25, 2025 12:08pm Chief Complaint Admit Date E-ORDER December 21, 2024 8:5 6am KIDNEY PROTOCAL / Unspecified abdominal pain (STAT March 25, 2025 12:08pm RT ESWL April 01, 2025 9:21 am Additional Source Comments (unrecognized sect ion and content) No Status Records FoundNo Status Records FoundNo Status Records FoundNo Status Records FoundNo Status Records FoundNo Status Records Found INFORMATION SOURCE (unrecogn ized section and content) DATE CREATED AUTHOR 04/19/2023 [facility] DATE CREATED AUTHOR AUTHOR'S ORGANIZ ATION 12/11/2024 [facility] DATE CREATED AUTHOR AUTHOR'S ORGANIZ ATION 12/19/2024 [facility] DATE CREATED AUTHOR AUTHOR'S ORGANIZ ATION 01/30/2025 [facility] DATE CREATED AUTHOR AUTHOR'S ORGANIZ ATION [facility] DATE CREATED AUTHOR AUTHOR'S ORGANIZ ATION 04/02/2025 [facility] Care Teams (unrecognized sec tion and content) [...] MD Primary Care Provider Active Matthew Hernandez MENTAL MEASUREMENTS TEACHER, MENTAL MEASUREMENTS TEACHER-C Attending Provider Active Team Status: Active Member Role Status Dates Dr. Mike Aburto MD Primary Care Provider Active Dr. Rogelio Preciado MD Attending Provider, Referring Provider Active Team Status: Inactive Member Role Status Dates Dr. Mike Aburto MD Primary Care Provider Active Dr. Rogelio Preciado MD Attending Provider, Referring Provider Active New Patient Escort Relationship Specialty Start Date End Date Mike Aburto Chi, MD [address] [place] [address] PCP - General Geriatric Medicine 09/30/24 New Patient Escort Relationship Specialty Start Date End Date Mike Aburto Chi, MD [address] [place] [address] PCP - General Geriatric Medicine 09/30/24 New Patient Escort Relationship Specialty Start Date End Date Mike Aburto Chi, MD [address] [place] [address] PCP - General Geriatric Medicine 09/30/24 New Patient Escort Relationship Specialty Start Date End Date Mike Aburto Chi, MD [address] [place] [address] PCP - General Geriatric Medicine 09/30/24 New Patient Escort Relationship Specialty Start Date End Date Mike Aburto Chi, MD [address] [place] [address] PCP - General Geriatric Medicine 09/30/24 New Patient Escort Relationship Specialty Start Date End Date Mike Aburto Chi, MD [address] [place] [address] PCP - General Geriatric Medicine 09/30/24 New Patient Escort Relationship Specialty Start Date End Date Mike Aburto Chi, MD [address] [facility] [address] [place] [address] PCP - General Geriatric Medicine 09/30/24 New Patient Escort Relationship Specialty Start Date End Date Mike Aburto Chi, MD [address] [facility] [address] [place], [place] [address] PCP - General Geriatric Medicine 09/30/24 New Patient Escort Relationship Specialty Start Date End Date Mike Aburto Chi, MD [address] [facility] [address] [place], [place] [address] PCP - General Geriatric Medicine 09/30/24 New Patient Escort Relationship Specialty Start Date End Date Mike Aubrto Chi, MD [address] [facility] [address] [place], [place] [address] PCP - General Geriatric Medicine 09/30/24 Team [...] December 21, 2024 End: December 21, 2024 New Patient Escort Relationship Specialty Start Date End Date Mike Aburto Chi, MD [address] [place] [address] PCP - General Geriatric Medicine 09/30/24 Team [...] March 25, 2025 End: March 25, 2025 Team Status: Inactive Member Role Status Dates Dr. Mike Aburto MD Primary Care Provider Active Start: April 01, 2025 End: April 01, 2025 Dr. Neeraj Mcnulty MD Attending Provider Active Start: April 01, 2025 End: April 01, 2025 Dr. Neeraj Mcnulty MD Referring Provider Active Start: April 01, 2025 End: April 01, 2025 Goals (unrecognized section and content) Goals [...] neurostimulator Mike Aburto Chi, MD [address] [facility] [address] [place] [address] Phone: tel: fax: Andrew Guzman MD [address] [place] [address] Phone: tel: fax: Referral ID Status Reason Start Date Expiration Date V isits Requested Visits Authorized [id number] Pending Review 09/13/2024 09/13/2025 1 1 Reason Comments Back Pain Encounter for adjust ment and management of neuro stimulator Specialty Diagnoses / Procedures Referred By Contac t Referred To Contact Neurosurgery Diagnoses Encounter for adjustment and management of neurostimulator Mike Aburto Chi, MD [address] [place] [address] Phone: tel: fax: Andrew Guzman MD [address] [place] [place] [address] Phone: tel: fax: Reason Comments Follow-up CT [...] Rectal, Every 8 hours, First dose on Fri11/18/24 at 1700, [] Until BM, then discontinue. [...] x 2 doses., Indication (POST PROCEDURE): Neurology 2122 (New Bag - Provider: Christiana Boucher RN)2152 [...] Daily (in the evening), First dose on Fri11/18/24 at 2000 2000 (Not Given - Provider: [...] Boucher RN) 0810 (Given - Provider: Pat Dasilva, JOYCE) senna-docusate (SENNA-S) 8.6-50 mg per tablet 2 [...] Young CRNA) 1400 (Stopped - Provider: Pat Dasilva, JOYCE) sodium chloride 0.9% (NS) 50 mL/hr, Intravenous, Continuous, Starting on Fabiola 11/18/24 at 1630 1618 (New Bag - Provider: Pat Dasilva RN)2122 (Paused - Provider: Christiana Boucher RN)2152 (Restarted - Provider: Christiana Boucher RN)2231 (Rate/Dose Verify - Provider: Christiana Boucher RN) 0140 (Rate/Dose Verify - Provider: Christiana Boucher RN)1400 (Stopped - Provider: Pat Dasilva, JOYCE) PRN Medication Order 11/17/2024 11/18/2024 11/19/2024 acetaminophen (TYLENOL) tablet 650 mg 650 mg, Oral, Every 4 hours PRN, mild pain, fever 100.4 F or greater, Starting on Fabiola 11/18/24 at 1536 bisacodyL (DULCOLAX) suppository 10 mg 10 mg, Rectal, Daily PRN, constipation, Starting on Fabiola 11/18/24 at 1536, Try oral meds first. [place] rectal route for when oral meds are [...] Pat Dasilva RN) 0808 (Given - Provider: aPt Dasilva RN) sodium chloride (NS) 0.9 % [...] BE BASED ON THE PRIMARY CLINICAL RECORDS. [facility]. provides no warranty or guarantee of the accuracy or completeness of information in this document.
--- NOTE | 2025-04-05 14:39 | RAD_ITS ---
PROCEDURE: L/S SPINE MIN 4 VIEWS 04/05/2025 REASON FOR EXAM: LUMBAR DISC DISEASE AND LOW BACK PAIN TECHNIQUE: L/S SPINE MIN 4 VIEWS COMPARISON: CT scan of the lumbar spine on 09/03/2024. FINDINGS: Mild osteopenia. Grade 1 anterolisthesis of L4 on L5 measuring 4.7 mm secondary to bilateral facet joint arthropathy. Dextroscoliosis apex at L3. Spinal stimulator device is noted. There are diffuse spondylotic changes. Findings are demonstrated to by diffuse disc space narrowing, osteophyte formation and degenerative endplate sclerosis. There is diffuse facet joint arthropathy with secondary bilateral neural foramina narrowing. No fracture or dislocation is seen. No aggressive lytic or blastic bony lesion is noted. RAD/L/S Spine Min 4 Views IMPRESSION: Spondylosis. Findings have mildly progressed. Reading [facility]
== END | disposition home or self-care (01) ==
PROVIDERS: PCP Family Medicine Geriatric Medicine; Referring Provider Family Medicine Geriatric Medicine; Visit Provider Family Medicine Geriatric Medicine
DX: K86.2 Cyst of pancreas (principal); G30.9 Alzheimer's disease, unspecified; M51.9 Unspecified thoracic, thoracolumbar and lumbosacral intervertebral disc disorder; M54.50 Low back pain, unspecified
CPT/HCPCS: 70551; 72110

== ENCOUNTER → 2025-04-13 | Outpatient (CLI) | payer MEDICARE, OTHER, SELFPAY ==
--- NOTE | 2025-04-13 14:30 | CT_ITS ---
PROCEDURE: CT ABD/PELVIS W/WO CONTRAST 04/13/2025 REASON FOR EXAM: Follow-up from lithotripsy, surveillance TECHNIQUE: CT ABD/PELVIS W/WO CONTRAST Coronal and Sagittal reconstruction series were provided. CONTRAST: Isovue 370 VOLUME: 100 mL One or more dose reduction techniques were used (e.g., Automated exposure control, adjustment of the mA and/or kV according to patient size, use of iterative reconstruction technique. RADIATION DOSE SUMMARY: CTDlvol: 91.7 mGy DLP: 1499.60 mGycm COMPARISON: 03/25/2025 FINDINGS: Lung bases: Mild dependent atelectasis Liver: Normal size. No mass. Gallbladder: Unremarkable Spleen: Normal size. Pancreas: Normal size without evidence of mass surrounding inflammation or ductal dilation. Adrenals: Unremarkable Kidneys: Right kidney shows a stable punctate corticomedullary junction nonobstructing stone. There is a low-density fluid collection posterior to the right kidney consistent with consistent with hematoma and patient's recent history of lithotripsy. No perinephric or Radha ureteral inflammatory stranding. The left kidney shows punctate nonobstructing stone. There are stable simple cortical cysts in both kidneys. Bladder: Unremarkable Bowel: There is a low-density filling defect within the body of the stomach likely food. Small and large bowel loops distends normally without evidence of ileus obstruction or inflammation. Appendix: Not visualized No free intraperitoneal fluid, air, or suspicious adenopathy Vasculature: Peripheral calcifications in the abdominal aorta without aneurysm Bones: Degenerative bony changes Stable appearance of a pain catheter in the left posterior flank CT/CT Abd/Pelvis W/WO Contrast IMPRESSION: There is a low-density filling defect posterior to the right kidney consistent with hematoma after lithotripsy which is not unexpected. Follow-up with ultrasound could be performed to assess resolution No obstructive uropathy or suspicious solid renal lesion, stable bilateral nono bstructing renal stones and simple cortical cysts No free intraperitoneal fluid, air, or suspicious adenopathy Degenerative bony changes Reading Location: [id number]
== END | disposition home or self-care (01) ==
PROVIDERS: PCP Family Medicine Geriatric Medicine; Referring Provider Family Medicine Geriatric Medicine; Visit Provider Family Medicine Geriatric Medicine
DX: K86.2 Cyst of pancreas (principal)
CPT/HCPCS: 74178; Q9967

== ENCOUNTER → 2025-05-09 | Outpatient (CLI) | payer MEDICARE, OTHER, SELFPAY ==
--- NOTE | 2025-05-09 15:18 | US_ITS ---
PROCEDURE: KIDNEY AND BLADDER 05/09/2025 REASON FOR EXAM: HEMATOMA OF RIGHT KIDNEY TECHNIQUE: KIDNEY AND BLADDER COMPARISON: Prior CT scan dated April 13, 2025. FINDINGS: Kidneys: Normal renal sizes, parenchymal thicknesses, and echotextures. There are 2 tiny nonobstructive intrarenal calculi. There is a 1.5 cm 1.9 cm 1.1 cm cyst in the lateral portion of the right kidney. [place]: No hydronephrosis. Cysts or Masses: There is evidence of a 2.7 cm 1.9 cm x 1.6 cm anechoic area along the posterior aspect of the right kidney suggestive of a perinephric fluid collection/hematoma. RIGHT Kidney Size: 9.5 cm x 4.5 cm x 5.4 cm Volume: 119.68 mL Cortical Thickness (if discernible): 15 mm (>6mm is normal) LEFT Kidney Size: 11.4 cm x 5.2 cm x 6.5 cm Volume: 201.75 mL Cortical Thickness (if discernible): 15 mm (>6mm is normal) US/Kidney and Bladder IMPRESSION: Small bilateral nonobstructive intrarenal calculi. Right renal cyst. Right perinephric fluid collections suggestive of resolving hematoma. Reading Location: [facility]
== END | disposition home or self-care (01) ==
PROVIDERS: PCP Family Medicine Geriatric Medicine; Referring Provider Family Medicine Geriatric Medicine; Visit Provider Family Medicine Geriatric Medicine
DX: S37.011A Minor contusion of right kidney, initial encounter (principal)
CPT/HCPCS: 76770

== ENCOUNTER → 2025-05-10 | Outpatient (CLI) | payer MEDICARE, OTHER, SELFPAY ==
--- NOTE | 2025-05-10 08:11 | RAD_ITS ---
PROCEDURE: ABDOMEN SINGLE VIEW 05/10/2025 REASON FOR EXAM: CALCULUS OF KIDNEY TECHNIQUE: Two views of the abdomen COMPARISON: CT from 04/13/2025 FINDINGS: Bowel gas: Unremarkable, retained stool Calcifications: 8 mm calcification projecting over the left kidney, no suspicious calcifications overlying the right kidney or along the expected course of either ureter. However, 1 could be obscured by the overlying bowel gas and stool Bones: Degenerative bony changes with a rotatory scoliosis. Other: Satisfactory appearance of a left abdominal neurostimulator RAD/Abdomen Single View IMPRESSION: Likely left nephrolithiasis No calcifications overlying the right kidney, or along the expected course of e ither ureter. However, 1 could be obscured by the overlying bowel gas and stool Rotatory scoliosis Reading Location: [id number]
== END | disposition home or self-care (01) ==
LOC: RAD 08:04
PROVIDERS: PCP Family Medicine Geriatric Medicine; Referring Provider Urology; Visit Provider Urology
DX: N20.0 Calculus of kidney (principal)
CPT/HCPCS: 74018

== ENCOUNTER → 2025-06-24 | Outpatient (CLI) | payer MEDICARE, OTHER, SELFPAY ==
[2025-06-24 15:06] LABS: AST(SGOT) 55 U/L (<=37); Alanine Aminotransfer ALT/SGPT 36 U/L (<=46); Albumin, Serum 4.2 g/dL (3.4-4.8); Alkaline Phosphatase 88 U/L (40-129); Bilirubin, Direct 0.60 mg/dL (0.00-0.30); Cholesterol 128 mg/dL (<=200); Globulin 2.3 g/dL (2.2-4.2); Low Density Lipoprotein Calc. 50 mg/dL; Triglycerides 57 mg/dL; Very Low Density Lipoprotein 11 mg/dL (5-40); cholesterol:hdl ratio screen 1.92
== END | disposition home or self-care (01) ==
LOC: LAB 13:24
PROVIDERS: PCP Family Medicine Geriatric Medicine; Referring Provider Physician Assistant Medical; Visit Provider Physician Assistant Medical
DX: E78.2 Mixed hyperlipidemia (principal)
CPT/HCPCS: 36415; 80061; 80076

== ENCOUNTER 2025-08-12 12:26 | Outpatient (CLI) | payer MEDICARE, OTHER, SELFPAY ==
--- NOTE | 2025-08-12 12:37 | RAD_ITS ---
PROCEDURE: FINGER(S) MIN 2 VIEWS; HAND MIN 3 VIEWS; WRIST MIN 3 VIEWS 08/12/2025 REASON FOR EXAM: PAIN TECHNIQUE: Procedure Code: RADFIN; DAPHNIE; RADWR Modality: DX Procedure: FINGER(S) MIN 2 VIEWS; HAND MIN 3 VIEWS; WRIST MIN 3 VIEWS Laterality: Right COMPARISON: None FINDINGS: No displaced fracture or traumatic malalignment. There is suggestion of prior amputation of the small finger distal phalanx, correlate with history. Joint space narrowing and osteophyte formation throughout the interphalangeal joints and metacarpophalangeal joints, most pronounced at the thumb interphalangeal joint. Bone mineral density is subjectively mildly diffusely decreased. Mild soft tissue swelling about the wrist. RAD/Finger(s) Min 2 Views IMPRESSION: 1. No displaced fracture of the right hand or wrist, to include the thumb. 2. Moderate osteoarthritis throughout the right hand. There is also involveme nt of the metacarpophalangeal joints, as can be seen with an inflammatory arthropathy such as rheumatoid arthritis. Reading Location: [facility]
--- NOTE | 2025-08-12 13:05 | RAD_ITS ---
PROCEDURE: FINGER(S) MIN 2 VIEWS; HAND MIN 3 VIEWS; WRIST MIN 3 VIEWS 08/12/2025 REASON FOR EXAM: PAIN TECHNIQUE: Procedure Code: RADFIN; DAPHNIE; RADWR Modality: DX Procedure: FINGER(S) MIN 2 VIEWS; HAND MIN 3 VIEWS; WRIST MIN 3 VIEWS Laterality: Right COMPARISON: None FINDINGS: No displaced fracture or traumatic malalignment. There is suggestion of prior amputation of the small finger distal phalanx, correlate with history. Joint space narrowing and osteophyte formation throughout the interphalangeal joints and metacarpophalangeal joints, most pronounced at the thumb interphalangeal joint. Bone mineral density is subjectively mildly diffusely decreased. Mild soft tissue swelling about the wrist. RAD/Wrist min 3 Views IMPRESSION: 1. No displaced fracture of the right hand or wrist, to include the thumb. 2. Moderate osteoarthritis throughout the right hand. There is also involveme nt of the metacarpophalangeal joints, as can be seen with an inflammatory arthropathy such as rheumatoid arthritis. Reading Location: [facility]
--- NOTE | 2025-08-12 13:05 | RAD_ITS ---
PROCEDURE: FINGER(S) MIN 2 VIEWS; HAND MIN 3 VIEWS; WRIST MIN 3 VIEWS 08/12/2025 REASON FOR EXAM: PAIN TECHNIQUE: Procedure Code: RADFIN; DAPHNIE; RADWR Modality: DX Procedure: FINGER(S) MIN 2 VIEWS; HAND MIN 3 VIEWS; WRIST MIN 3 VIEWS Laterality: Right COMPARISON: None FINDINGS: No displaced fracture or traumatic malalignment. There is suggestion of prior amputation of the small finger distal phalanx, correlate with history. Joint space narrowing and osteophyte formation throughout the interphalangeal joints and metacarpophalangeal joints, most pronounced at the thumb interphalangeal joint. Bone mineral density is subjectively mildly diffusely decreased. Mild soft tissue swelling about the wrist. RAD/Hand Min 3 Views IMPRESSION: 1. No displaced fracture of the right hand or wrist, to include the thumb. 2. Moderate osteoarthritis throughout the right hand. There is also involveme nt of the metacarpophalangeal joints, as can be seen with an inflammatory arthropathy such as rheumatoid arthritis. Reading Location: [facility]
[2025-08-12 13:13] LABS: Hematocrit 44.9 % (40-54); Hemoglobin 14.7 g/dL (13.0-16.5); Immature Granulocytes Count 0.020 X10^3/uL (0.0-0.0); Mean Corp Hgb Conc 32.7 g/dL (32-36); Mean Corpuscular Volume 86.3 fL (80-94); Mean Platelet Vol. 10.2 fl (6.2-12.0); NRBC Flagged by Analyzer 0 % (0-5); Platelet Count 175 K/mm3 (150-450); RBC Distribution Width CV 12.6 % (11.6-14.6); RBC Distribution Width SD 39.8 fl (35.1-43.9); Red Blood Count 5.20 M/mm3 (4.6-6.2); White Blood Count 6.0 K/mm3 (4.4-11.0)
[2025-08-12 13:14] LABS: Anion Gap 7 (5-15); BUN 19 mg/dL (4-19); BUN/Creat Ratio 19.8 RATIO (10-20); CRP 4.35 mg/L (0.0-3.0); Calcium,Total 9.1 mg/dL (7.6-11.0); Carbon Dioxide 27.9 mmol/L (21.0-32.0); Chloride 106 mmol/L (98-108); Glucose 83 mg/dL (70-99); Potassium 4.5 mmol/L (3.3-5.1); Uric Acid 6.0 mg/dL (3.5-7.2)
--- NOTE | 2025-08-12 14:06 | VDUE_ITS ---
Reason For Study Reason For Study: EDEMA, PAIN Right Proximal Right jugular vein is spontaneous, widely patent, phasic, with no intraluminal echogenicity noted. Right subclavian vein is spontaneous, widely patent, phasic, with no intraluminal echogenicity noted. Right Lower Arm Right radial vein is compressible. Right ulnar vein is compressible. Right Arm Right axillary vein is spontaneous, patent, phasic, competent, compressible and demonstrates augmentation. Right brachial vein is compressible. Right cephalic vein is compressible. Right basilic vein is compressible. VL/Venous Duplex US, Unilateral Interpretation Summary Deep veins of the right upper extremity are patent and compressible segmentally . There is no evidence of deep vein thrombosis. The superficial veins of the right upper extremity, the basilic and cephalic veins, are patent and compressible. There is no evidence of right upper extremity superficial thrombo phlebitis involving the veins imaged. Ordering Physician: Mike Aburto Chi Referring Physician: Mike Aburto Chi Performed By: Zayra Monsalve, MORE, RVT ???
[2025-08-12 20:32] LABS: Xtra Tube Kwok EXTRA TUBE
== END 2025-08-12 23:59 | disposition home or self-care (01) ==
PROVIDERS: PCP Family Medicine Geriatric Medicine; Referring Provider Family Medicine Geriatric Medicine; Visit Provider Family Medicine Geriatric Medicine
DX: M10.9 Gout, unspecified (principal); M79.644 Pain in right finger(s); M25.532 Pain in left wrist; M25.531 Pain in right wrist; M79.641 Pain in right hand; R60.0 Localized edema
CPT/HCPCS: 36415; 73110; 73130; 73140; 80048; 84550; 85025; 85652; 86140; 93971

== ENCOUNTER → 2025-08-24 | Outpatient (CLI) | payer MEDICARE, OTHER, SELFPAY ==
[2025-08-24 12:39] LABS: Hematocrit 44.3 % (40-54); Hemoglobin 14.5 g/dL (13.0-16.5); Immature Granulocytes Count 0.040 X10^3/uL (0.0-0.0); Mean Corp Hgb Conc 32.7 g/dL (32-36); Mean Corpuscular Volume 87.5 fL (80-94); Mean Platelet Vol. 10.5 fl (6.2-12.0); NRBC Flagged by Analyzer 0 % (0-5); Platelet Count 123 K/mm3 (150-450); RBC Distribution Width CV 13.2 % (11.6-14.6); RBC Distribution Width SD 41.7 fl (35.1-43.9); Red Blood Count 5.06 M/mm3 (4.6-6.2); White Blood Count 7.7 K/mm3 (4.4-11.0)
[2025-08-24 13:30] LABS: AST(SGOT) 28 U/L (<=37); Alanine Aminotransfer ALT/SGPT 28 U/L (<=46); Albumin, Serum 3.9 g/dL (3.4-4.8); Alkaline Phosphatase 84 U/L (40-129); Anion Gap 7 (5-15); BUN 18 mg/dL (4-19); BUN/Creat Ratio 18.0 RATIO (10-20); Calcium,Total 8.8 mg/dL (7.6-11.0); Carbon Dioxide 29.4 mmol/L (21.0-32.0); Chloride 106 mmol/L (98-108); Globulin 2.2 g/dL (2.2-4.2); Glucose 95 mg/dL (70-99); Potassium 4.4 mmol/L (3.3-5.1); Uric Acid 5.6 mg/dL (3.5-7.2); Vitamin D,25 Hydroxy 24.7 ng/mL (30-100)
[2025-08-24 19:57] LABS: Xtra Tube Kwok EXTRA TUBE
== END | disposition home or self-care (01) ==
LOC: LAB 11:53
PROVIDERS: PCP Family Medicine Geriatric Medicine; Referring Provider Family Medicine Geriatric Medicine; Visit Provider Family Medicine Geriatric Medicine
DX: I10 Essential (primary) hypertension (principal); M10.9 Gout, unspecified; E55.9 Vitamin D deficiency, unspecified
CPT/HCPCS: 36415; 80053; 82306; 84443; 84550; 85025